=== PATIENT | male | born 1965 | race Caucasian/White ===

== ENCOUNTER 2018-03-23 21:19 | Emergency (ER) | payer MEDICARE, MEDICAID ==
--- NOTE | 2018-03-23 22:05 | ED ---
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 The patient rates the pain 0/10 in severity. Symptoms aggravated by nothing. Symptoms alleviated by nothing. Patient reports difficulty with what is real versus what is not. Patient denies SI. Patient reports he was sent here by his care facility because he refused to let them touch him. Pt is requesting admission because he does not want to go back to [facility]. He reports that [facility] refused to contact his family. - History Of Current Complaint Chief Complaint: EDPsychosocial Hx Obtained From: Patient Onset/Duration: Sudden Onset, Lasting Hours, Still Present Timing: Constant Severity Currently: Mild Severity Initially: Mild Location: Negative Aggravating Factor(s): Nothing Alleviating Factor(s): Nothing Associated Signs And Symptoms: Positive: Other - Patient reports difficulty with what is real versus what is not. Patient denies SI. - Allergies/Home Medications Allergies/Adverse Reactions: Allergies Allergy/AdvReac Type Severity Reaction Status Date / Time acetaminophen [From Percocet] Allergy Itching Verified 03/23/18 21:33 oxycodone [From Percocet] Allergy Itching Verified 03/23/18 21:33 PMH/Surg Hx/FS Hx/Imm Hx Previously Healthy: No Sensory History: Reports: Hx Vision Problem Neurological History: Reports: Other Neuro Impairments/Disorders - Positive paralysis Infectious Disease History: No Infectious Disease History: Denies: Traveled Outside the [place] in Last 30 Days - Family History Known Family History: Positive: Unknown - Due to anxiety, patient is not able to give a full history - Social History Occupation: Disabled Lives: Assisted Living Alcohol Use: None Substance Use Type: Reports: Marijuana Smoking Status (MU): Former Smoker Review of Systems - ROS Summary Review of Systems Summary: ROS limited due to patient's anxiety, patient is not giving the full history. He is focusing on his social situation. Negative: Fever Psychological: Other - Positive difficulty "with what is real versus what is not ". Negative SI All Other Systems Reviewed And Are Negative: No Physical Exam - Summary Physical Exam Summary: Appearance: Alert, conversive, pale Skin: Warm, dry, no mottling, no rashes, no contusions HEENT: EOMI, PERRL, moist mucous membranes Neck: No masses on the neck, supple Respiratory: Clear to auscultation, breath sounds present, no rales, no rhonchi , no wheezes Cardiovascular: RRR, pulses are symmetrical in both lower and upper extremities Abdomen: Soft, non-tender, suprapubic catheter in place. No CVA tenderness Bowel Sounds: Present Musculoskeletal: No CVA tenderness, no obvious deformity, moving all extremities in a grossly normal manner. To his lower extremities, incision line with cristi to the left hip. It is clean, dry, and intact. Extremities are contracted, malrotated, pale, and warm. Neurological: A&Ox3, CN II-XII Intact, moving all extremities symmetrically Psychiatric: Normal affect and mood Triage Information Reviewed: Yes Vital Signs On Initial Exam: Initial Vitals Temp Pulse Resp BP Pulse Ox 98.7 F 127 14 140/98 98 03/23/18 21:20 03/23/18 21:20 03/23/18 21:20 03/23/18 21:20 03/23/18 21:20 Vital Signs Reviewed: Yes Diagnostics - Vital Signs Vital Signs Temp Pulse Resp BP Pulse Ox 03/23/18 21:20 98.7 F 127 14 140/98 98 - Laboratory Result Diagrams: 03/23/18 22:40 03/23/18 22:40 Lab Statement: Any lab studies that have been ordered have been reviewed, and results considered in the medical decision making process. - Radiology CXR Radiology Interpretation Completed By: ED Physician - CXR reveals, per ED physician, no pneumonia. There is a line that goes down from the head to the abdomen, it may be a EMPLOYMENT OFFICER shunt. 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 Patient reports he was sent here by his care facility because he refused to let them touch him. Pt is requesting admission because he does not want to go back to [facility]. Physical Exam Findings: Pale. Slightly dry mucous membranes. Suprapubic catheter in place. No CVA tenderness. To his lower extremities, incision line with cristi to the left hip. It is clean, dry, and intact. Extremities are contracted, malrotated, pale, and warm. CXR reveals, per ED physician, no pneumonia. There is a line that goes down from the head to the abdomen, it may be a EMPLOYMENT OFFICER shunt. Bloodwork and UA obtained. In the ED course the patient was given Cephalexin, magnesium sulfate, and fluids. Patient will be discharged with prescription for Keflex and follow up from PCP. The patient is agreeable with this plan. - Diagnoses Provider Diagnoses: UTI (urinary tract infection) Discharge - Sign-Out/Discharge Documenting (check all that apply): Patient Departure - Discharge home - Discharge Plan Condition: Stable Disposition: HOME Prescriptions: Cephalexin CAP* [Keflex CAP*] 500 mg PO TID #21 cap Patient Education Materials: Urinary Tract Infection in Men (ED) Referrals: No Primary Care Phys,NOPCP [Primary Care Provider] - Additional Instructions: Take keflex 500mg by mouth three times a day for 7 days. return if worse or any new symptoms. Follow up with your primary care physician this week. Attestations Scribe Attestation: This is sharon Brunson documenting for attending Darcy Braswell MD. User Type: Provider with Scribe Provider Attestation: The documentation recorded by the scribe accurately reflects the service I personally performed and the decisions made by me.
[2018-03-23 22:49] LABS: ABS Basophils 0.1 10^3/ul (0-0.2); ABS Eosinophils 0.3 10^3/ul (0-0.6); ABS Lymphocytes 1.6 10^3/ul (1.0-4.8); ABS Monocytes 0.6 10^3/ul (0-0.8); ABS Nucleated RBC 0 10^3/ul; Eosinophil % 2.3 % (0-6); Hematocrit 33 % (42-52); Lymphocyte % 14.1 % (25-47); Mean Corpuscular HGB Conc 34 g/dl (31-36); Mean Corpuscular Hemoglobin 28 pg (27-31); Mean Corpuscular Volume 84 fL (80-94); Mean Platelet Volume 6.8 um3 (7.4-10.4); Nucleated Red Blood Cells % 0; Platelet Count 409 10^3/ul (150-450); Red Blood Count 3.93 10^6/ul (4.00-5.40); Red Cell Distribution Width 18 % (10.5-15); White Blood Count 11.6 10^3/ul (3.5-10.8)
[2018-03-23 23:05] LABS: EGFR Non-African American 156.4 (>60)
[2018-03-23] MEDS ORDERED: NS 0.9% 1000 ML* 1,000 ML IV ONE (23:56)
[2018-03-23] MEDS ORDERED: Magnesium Sulfate IV* 2 GM in NS 0.9% 100 ML* 100 ML IV ONE (23:56)
[2018-03-24] MEDS ORDERED: Magnesium Sulfate 2 GM IV* 2 GM/50 ML BAG ONE (00:15)
[2018-03-24 03:29] LABS: Urine Appearance Cloudy; Urine Blood 1+ (Negative); Urine Color Yellow; Urine Ketones Negative (Negative); Urine Protein 1+(30 mg/dL) (Negative); Urine Red Blood Cell 3+(>10/hpf) (Absent); Urine Specific Gravity 1.012 (1.010-1.030); Urine Urobilinogen Negative (Negative); Urine White Blood Cell 3+(>20/hpf) (Absent)
[2018-03-24] MEDS ORDERED: Cephalexin CAP* 500 MG PO ONE (03:30)
[2018-03-24 05:49] VITALS: BP 144/84
--- NOTE | 2018-03-24 07:31 | RAD ---
HISTORY: weakness COMPARISONS: None VIEWS: 1: frontal portable view of the chest at 10:17 PM FINDINGS: LINES AND TUBES: CONTINUOUS IMPROVEMENT DIRECTOR shunt tubing is noted on the right. CARDIOMEDIASTINAL SILHOUETTE: The cardiomediastinal silhouette is normal for portable technique. PLEURA: The costophrenic angles are sharp. No pleural abnormalities are noted. LUNG PARENCHYMA: The lungs are clear. ABDOMEN: The upper abdomen is clear. There is no subphrenic gas. BONES AND SOFT TISSUES: The patient is status post anterior cervical fusion. Mild degenerative changes are noted. IMPRESSION: NO ACTIVE CARDIOPULMONARY DISEASE. R1
== END 2018-03-24 05:45 | disposition home or self-care (01) ==
LOC: ED 21:19
DX: N39.0 Urinary tract infection, site not specified (principal); Z87.891 Personal history of nicotine dependence; Z88.6 Allergy status to analgesic agent; Z88.5 Allergy status to narcotic agent
CPT/HCPCS: 36415; 71045; 80053; 81003; 81015; 83735; 84443; 85025; 87086; 87106; 96361; 96365; 96366; 99284; A9270-GY; J3475

== ENCOUNTER 2018-03-29 11:10 | Inpatient (IN) | payer MEDICARE, MEDICAID ==
--- NOTE | 2018-03-29 11:41 | ED ---
Psychiatric Complaint - HPI Summary HPI Summary: The pt is a 52 y/o male with a PMHx of depression BIBA to [facility] s/p a suicide attempt at 10:30 today. The pt tied a sheet around his neck and notes that he does not want to live at the [facility]. He rolled on the floor and hit the bed when he was found . He notes bilateral knee and foot pain, loss of balance and loss of gait. The pt notes paralysis for 8 years now. Th pt notes continued SI in the ED. - History Of Current Complaint Chief Complaint: EDMentalHealth Hx Obtained From: Patient, EMS Onset/Duration: Still Present, Worse Since - 10:30 today Related History: Positive For: Prior Psychiatric Issues - Hx of depression Has Suicidal: Reports: With A Plan, Demonstrates Gesture - To choke himself using a bedsheet. - Allergies/Home Medications Allergies/Adverse Reactions: Allergies Allergy/AdvReac Type Severity Reaction Status Date / Time oxycodone [From Percocet] Allergy Itching Verified 03/23/18 21:33 Home Medications: Home Medications Cholecalciferol 1,000 units PO DAILY 03/29/18 [History Confirmed 03/29/18] Duloxetine HCl 60 mg PO DAILY 03/29/18 [History Confirmed 03/29/18] Vancomycin 1 Gram/250 ml-D5w 1,750 mg IVPB DAILY 03/29/18 [History Confirmed ] Zoloft 50 mg PO DAILY 03/29/18 [History Confirmed 03/29/18] PMH/Surg Hx/FS Hx/Imm Hx Previously Healthy: No Endocrine/Hematology History: Reports: Hx Anemia Cardiovascular History: Reports: Hx Hypercholesterolemia, Hx Hypertension GI History: Reports: Hx Gastroesophageal Reflux Disease Musculoskeletal History: Reports: Other Musculoskeletal History - Paralysis Sensory History: Reports: Hx Vision Problem Opthamlomology History: Reports: Hx Vision Problem Neurological History: Reports: Other Neuro Impairments/Disorders - Positive paralysis Psychiatric History: Reports: Hx Depression - Surgical History Other Surgical History: None Infectious Disease History: Yes - MRSA, Tinea cruris Infectious Disease History: Reports: Hx of Known/Suspected MRSA Denies: Traveled Outside the [place] in Last 30 Days - Family History Known Family History: Negative: Respiratory Disease, Seizure Disorder, Blood Disorder - Social History Occupation: Retired Lives: At [facility] Alcohol Use: None Substance Use Type: Reports: Marijuana Smoking Status (MU): Former Smoker Review of Systems Negative: Fever Negative: Blurred Vision, Diplopia Negative: Sore Throat, Ear Ache Negative: Chest Pain Negative: Shortness Of Breath, Cough Negative: Abdominal Pain, Vomiting, Diarrhea, Nausea Negative: burning, dysuria, hematuria Positive: Decreased ROM. Negative: Arthralgia Negative: Rash, Bruising Positive: Weakness. Negative: Headache, Syncope Psychological: Other - Positive: Suicide attempt All Other Systems Reviewed And Are Negative: No Physical Exam - Summary Physical Exam Summary: Appearance: Alert, nontoxic appearing, looks thin Skin: Warm, dry, no mottling, no rashes, no contusions; dry mucous membranes; HEENT: EOMI, PERRL, moist mucous membranes Neck: No masses on the neck, supple Respiratory: Clear to auscultation, breath sounds present, no rales, no rhonchi , no wheezes Cardiovascular: RRR, pulses are symmetrical in both lower and upper extremities ; has a PICC line in the LUE Abdomen: Soft, non-tender Bowel Sounds: Present; Has a suprapubic catheter Musculoskeletal: No CVA tenderness, Muscle wasting worse on the bilateral LEs, Neurological: A&Ox3, CN II-XII Intact, moving all extremities symmetrically; Paralyzed in the bilateral LEs Psychiatric: Pt is verbose, hyper-rastafarian and suicidal; Pt displays Flat affect; poor insight; poor judgment Triage Information Reviewed: Yes Vital Signs On Initial Exam: Initial Vitals Temp Pulse Resp BP Pulse Ox 99.2 F 113 22 122/85 99 03/29/18 11:14 03/29/18 11:14 03/29/18 11:14 03/29/18 11:14 03/29/18 11:14 Vital Signs Reviewed: Yes Appearance: Positive: Thin Skin: Positive: Warm, Dry Head/Face: Positive: Normal Head/Face Inspection - there is a vp of global marketing shunt to right scalp going down to right neck Eyes: Positive: Normal ENT: Positive: Other - slightly dry mucous membranes Neck: Positive: Supple - vp of global marketing shunt catheter noted Respiratory/Lung Sounds: Positive: Clear to Auscultation Cardiovascular: Positive: Normal Abdomen Description: Positive: Nontender Bowel Sounds: Positive: Present Musculoskeletal: Positive: Other - left hip is bandaged. bandage is dry. pt is non-mobile to lower extremities Neurological: Positive: CN Intact II-III Psychiatric: Positive: Anxious AVPU Assessment: Alert Diagnostics - Vital Signs Vital Signs Temp Pulse Resp BP Pulse Ox 03/29/18 11:14 99.2 F 113 22 122/85 99 - Laboratory Result Diagrams: 04/03/18 04:25 04/03/18 04:25 Lab Statement: Any lab studies that have been ordered have been reviewed, and results considered in the medical decision making process. - Radiology CXR Radiology Interpretation Completed By: Radiologist - IMPRESSION: No radiographic evidence for acute cardiopulmonary abnormality on this single AP view chest x-ray. The ED physician has reviewed this radiology report. - EKG 12:31 Cardiac Rate: Tachycardia - 107 bpm EKG Interpretation: Normal QRS; Normal QTC; Normal axes, Normal ST waves Re-Evaluation - Re-Evaluation First Eval Re-Evaluation Time: 17:49 Change: Unchanged - Pt Course/Dx - Course Course Of Treatment: A 52 year-old M presents to the ED with a CC of SI since 10 :30 today. He tied a sheet around his neck and was discovered by staff at the [facility]. He reports bilateral knee and foot pain, loss of balance , bilateral LE paralysis and loss of gait. A CXR is negative and an EKG reveals tachycardia but normal QRS, normal QTC, normal axes, and normal ST waves. In the ED course, pt was given a heparin flush 1mL and Cephalexin 500mg which improved his symptoms. A physical exam revealed persistent SI, bilateral LE paralysis, flat affect, poor judgment and poor insight. The pt is verbose, hyper -rastafarian and suicidal. He will be admitted for continued psychiatric care. Pt is agreeable with this plan. Allergies noted. - Differential Dx/Clinical Impression Provider Diagnosis: Suicide attempt, Depression - Physician Notifications Discussed Care Of Patient With: Mayda Street Time Discussed With Above Provider: 18:02 Instructed by Provider To: Admit As Inpatient - Dr. Street agreed to admit the pt after she confirms that the psychiatry dept. will see the pt daily. 18:12: Dr. Street agreed to admit the pt Discharge - Sign-Out/Discharge Documenting (check all that apply): Patient Departure - Discharge Plan Condition: Stable Disposition: ADMITTED TO [facility] - Billing Disposition and Condition Condition: STABLE Disposition: Admitted to [facility] - Attestation Statements Document Initiated by Breonna: Yes Documenting Scribe: Belia Gutierrez Provider For Whom Breonna is Documenting (Include Credential): Dr. Darcy Braswell MD Scribe Attestation: Belia Macias , scribed for Dr. Darcy Braswell MD on 04/03/18 at 0945. Scribe Documentation Reviewed: Yes Provider Attestation: The documentation as recorded by the veelynibBelia rod accurately reflects the service I personally performed and the decisions made by me, Dr. Darcy Braswell MD
--- NOTE | 2018-03-29 12:07 | RAD ---
INDICATION: Weakness COMPARISON: Similar chest x-ray March 23, 2018 TECHNIQUE: Single AP view of the chest was obtained. FINDINGS: Again seen is plate and screw fixator overlying the midline cervical spine and a right-sided ventriculoperitoneal shunt. The heart and mediastinum exhibit normal size and contour. The lungs are grossly clear. There is no evidence of a large pleural effusion. Visualized bones are normal for the patient's age. IMPRESSION: No radiographic evidence for acute cardiopulmonary abnormality on this single AP view chest x-ray.
[2018-03-29 13:29] LABS: ABS Basophils 0.1 10^3/ul (0-0.2); ABS Eosinophils 0.3 10^3/ul (0-0.6); ABS Lymphocytes 1.6 10^3/ul (1.0-4.8); ABS Monocytes 0.6 10^3/ul (0-0.8); ABS Neutrophils 7.9 10^3/ul (1.5-7.7); ABS Nucleated RBC 0 10^3/ul; Eosinophil % 2.6 % (0-6); Hematocrit 31 % (42-52); Hemoglobin 10.3 g/dl (14.0-18.0); Lymphocyte % 15.6 % (25-47); Mean Corpuscular HGB Conc 33 g/dl (31-36); Mean Corpuscular Hemoglobin 28 pg (27-31); Mean Corpuscular Volume 84 fL (80-94); Nucleated Red Blood Cells % 0; Platelet Count 449 10^3/ul (150-450); Red Blood Count 3.69 10^6/ul (4.00-5.40); Red Cell Distribution Width 18 % (10.5-15); White Blood Count 10.5 10^3/ul (3.5-10.8)
[2018-03-29 13:40] LABS: Urine Appearance Cloudy; Urine Blood Negative (Negative); Urine Color Yellow; Urine Ketones Negative (Negative); Urine Protein Negative (Negative); Urine Red Blood Cell 3+(>10/hpf) (Absent); Urine Specific Gravity 1.013 (1.010-1.030); Urine Urobilinogen Negative (Negative); Urine White Blood Cell 3+(>20/hpf) (Absent)
[2018-03-29 13:43] LABS: EGFR Non-African American 156.4 (>60)
[2018-03-29] MEDS ORDERED: Cephalexin CAP* 500 MG PO ONE (18:37)
[2018-03-29] MEDS ORDERED: Ondansetron INJ* 2 MG/ML VIAL IV PRN (20:33)
[2018-03-29] MEDS ORDERED: Al Hydrox/Mg Hydrox/Simet LIQ* 30 ML UDC PO PRN (20:33)
[2018-03-29] MEDS ORDERED: Albuterol 2.5 MG/3 ML NEB.SOL* (0.083%) INH PRN (20:33)
[2018-03-29] MEDS ORDERED: Magnesium Hydroxide LIQ* 30 ML UDC PO PRN (20:33)
[2018-03-29] MEDS ORDERED: oxyCODONE/Acetamin 5/325 MG* TAB PO PRN (20:33)
[2018-03-29] MEDS ORDERED: Vancomycin(*) 1,500 MG in NS 0.9% 250 ML* 250 ML IVPB ONE (20:44)
[2018-03-29] MEDS ORDERED: Vancomycin per Pharmacy* NOTE FOLLOW UP SCH (21:00)
[2018-03-29] MEDS ORDERED: NS 0.9% 250 ML* 250 ML ONE (21:29)
[2018-03-29] MEDS: Morphine ORAL.SOLN 10 mg* 2 MG/ML UDC 5 ml PO PRN (22:30)
[2018-03-29] MEDS: Heparin VIAL(*) 5000 UNITS/ML VIAL (FIVE THOUSAND) SUBCUT SCH (22:32)
[2018-03-29] MEDS: Atorvastatin* 10 MG TAB PO SCH (22:33)
[2018-03-29] MEDS: Cephalexin CAP* 500 MG PO SCH (22:33)
[2018-03-29] MEDS: tiZANidine TAB* 2 MG PO PRN (22:48)
--- NOTE | 2018-03-29 22:58 | HP ---
CC: Angel Romano MD* ADMISSION HISTORY AND PHYSICAL: DATE OF ADMISSION: 03/29/18 ATTENDING HOSPITALIST: Brice Poon MD * (DICTATED BY IRIS CLIFFORD ) CHIEF COMPLAINT: Suicidal ideation with attempt. HISTORY OF PRESENT ILLNESS: Mr. 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 The patient has been a resident of [facility]. The patient has been a resident of [facility] for the past week or so. He notes that he has been having difficulty accommodating to his life at the custodial and he would like to "put an end to his misery" for which he has been attempting multiple suicidal approaches, most recently today when he wrapped the bedsheet around his neck and tried to hang himself. The patient was brought to the emergency room for evaluation. He was here twice in he past few days for a similar issue and clearly stated that he would like to be moved from [facility]. He had laboratory workup that revealed no evidence of leukocytosis. His hemoglobin and hematocrit has been chronically low and appears to be at baseline at 10.3 and 31 respectively. His chemistry panel was essentially unremarkable and appears to be at his baseline as well with the exception of hypomagnesemia at level of 1.6. Psychiatric evaluation was requested in the emergency room and it was done and it was thought that the patient need to be admitted for acute psychiatric disorder and suicidal ideation with attempts. Given the fact that he has a suprapubic tube as well as PEG tube for a chronic vancomycin IV administration due to history of osteomyelitis, we were asked to see the patient to consider admission under hospitalist services and for psychiatric consultation as inpatient. PAST MEDICAL HISTORY: Multiple medical issues with complex progression including history of substance abuse, CVA leading to paraplegia, pancreatitis, weakness, neurological disorder, GERD, hyponatremia, bipolar and depression, nephropathy, multiple decubitus ulcers in the past, urinary retention with suprapubic catheter placement, prior admission due to sepsis, hypertension. PAST SURGICAL HISTORY: Previous abdominal surgery with insertion of suprapubic tube, transurethral resection of the prostate, ureterostomy, ventriculoperitoneal shunt surgery. CURRENT MEDICATIONS: According to records reviewed, his current medications include: 1. Vitamin C 1000 mg p.o. daily. 2. Atorvastatin 10 mg p.o. q.h.s. 3. Cholecalciferol 1000 units p.o. daily. 4. Duloxetine 60 mg p.o. daily. 5. Pepcid 20 mg p.o. b.i.d. 6. Lisinopril 5 mg p.o. daily. 7. Metoprolol 50 mg p.o. daily. 8. Morphine oral concentrate 5 mg oral solution q.8 hours p.r.n. for pain. 9. Docusate sodium 1 tablet p.o. daily. 10. Tizanidine 4 mg p.o. 4 times a day p.r.n. for spasm. 11. Vancomycin in the current listed dose is 1.750 mg IV fluid once daily and pharmacy will adjust the dose per protocol. 12. Zoloft 50 mg p.o. daily. 13. Keflex 500 mg p.o. t.i.d. ALLERGIES: He is allergic to OXYCODONE. FAMILY HISTORY: Noncontributory since the patient was adopted. SOCIAL HISTORY: The patient currently lives at [facility]. He is a former smoker who quit approximately 9 years ago. He denies drinking alcohol and he denies any illicit drug use now. The patient is adopted and he wishes to be a full code. REVIEW OF SYSTEMS: See HPI. Otherwise, 12-point review of systems were essentially negative. PHYSICAL EXAMINATION GENERAL: He is a pleasant middle-aged gentleman, appears appropriate, talks slightly fast with flight of ideas, but comfortable and in no acute distress or discomfort at the time of admission. VITAL SIGNS: Most recent set of vitals with temperature of 98.3, pulse of 117, blood pressure of 131/72, respirations of 20 with O2 sat of 97% on room air. HEENT: Head is normocephalic, atraumatic. Sclerae anicteric. PERRLA. EOMs intact. Oropharynx is pink and moist. NECK: Supple. Trachea midline. No cervical adenopathy or thyromegaly. LUNGS: Clear to auscultation bilaterally. HEART: Fast rate and regular rhythm without rubs, murmurs or gallops. ABDOMEN: Soft, nontender and nondistended. There are no hernias, masses, or hepatosplenomegaly. There is a suprapubic catheter inserted with a clean base. No evidence of leak. BACK: With normal curvature. No CVA tenderness. EXTREMITIES: Without cyanosis, clubbing, or edema. NEUROLOGIC: He is awake, alert and oriented x4. Muscle manager icu to other extremities is equal bilaterally. Tongue is midline. Sensation is intact. Lower extremity with a contracture noted consistent with paraplegia with visible muscular atrophy. There are no ulcers noted to the bilateral trochanteric area or lower back. RECTAL: Exam deferred at this time. LABORATORY WORKUP: CBC with white count of 10,000, hemoglobin of 10.3, hematocrit of 31, and platelets of 449,000. Chemistry panel with sodium of 133 , potassium of 4.2, chloride 98, CO2 of 30, BUN of 17, and creatinine of 0.55. LFTs within normal limits. Magnesium low at 1.6 and glucose was 88. TSH is 1.53. Toxicology panel with acetaminophen less than 10 and urine showed 3+ leukocytes, white cells and red cells. IMPRESSION: A 52-year-old gentleman with multiple complicated medical issues including paraplegia, history of cerebrovascular accident with hydrocephalus and ventriculoperitoneal shunt, as well as history of bipolar disorder, depression and multiple suicidal ideations and attempts in the past few days who presented to the emergency room after another attempt of suicide at his residence at [facility]. ASSESSMENT AND PLAN: 1. Suicidal ideation with attempt. The patient will be admitted under hospitalist services and psychiatric consultation was obtained. I have discussed the case with Dr. Poon, who in turn called Dr. Romano requesting his consultation that was done earlier this evening. The plan was made clear that the patient will be admitted under hospitalist services and will have daily rounds by Psychiatric Health during his hospital stay to monitor his progression. In case, the patient needs any future psychiatric transfer from [facility] to outside facility, the transfer protocol will be done by the mental health team. The patient appeared to be stable at this point and does not exhibit any suicidal thoughts. We will continue to observe him one-on- one on the medical floor. I will continue his SSRI and monitor. 2. Hypertension. I will continue his lisinopril and metoprolol daily dose. 3. History of cerebrovascular accident with ventriculoperitoneal shunt. This issue appears to be stable right now. The patient exhibits no headaches or abnormal vitals and his blood pressure has been stable. 4. Paraplegia. Supportive care, and frequent turning on bed to avoid any decubitus ulcers. 5. Hypomagnesemia. We will replace his magnesium. 6. Recent history of osteomyelitis. We will continue his vancomycin IV dose on a daily basis. His current dose upon admission is 1.750 g. He will be given this initial dose tonight and I will refer to the pharmacy to adjust the dose per protocol. 7. History of urinary retention. We will continue his suprapubic tube attached to gravity per protocol. 8. DVT prophylaxis: The patient has a high risk and will be covered with subcutaneous heparin. 9. Code status: He is a full code. 10. Disposition: Admit to hospitalist services with psychiatric followup rounding on a daily basis to monitor closely his progression. Again, Dr. Poon has spoken to Dr. Romano and in case if there was any future transfer of the patient from [facility] to a different psychiatric facility, this will be managed and taken care of by the behavioral health team. TIME SPENT: Approximately 60 minutes were spent admitting this patient with greater than 50% on taking history and performing physical exam. I went on and discussed the case my attending, Dr. Poon, who agreed to the plan of care. IRIS CLIFFORD [id number]/CPS #: [id number] HUGO
[2018-03-30] MEDS: Capsaicin 0.025% CREAM* 60 GM TOPICAL PRN ×2 (05:23→11:19)
[2018-03-30] MEDS: Heparin VIAL(*) 5000 UNITS/ML VIAL (FIVE THOUSAND) SUBCUT SCH ×3 (05:37→21:26)
[2018-03-30 05:50] LABS: ABS Basophils 0.1 10^3/ul (0-0.2); ABS Eosinophils 0.4 10^3/ul (0-0.6); ABS Monocytes 0.7 10^3/ul (0-0.8); ABS Nucleated RBC 0 10^3/ul; Eosinophil % 3.9 % (0-6); Hematocrit 29 % (42-52); Hemoglobin 9.6 g/dl (14.0-18.0); Lymphocyte % 17.9 % (25-47); Mean Corpuscular HGB Conc 34 g/dl (31-36); Mean Corpuscular Hemoglobin 28 pg (27-31); Mean Corpuscular Volume 84 fL (80-94); Nucleated Red Blood Cells % 0; Platelet Count 466 10^3/ul (150-450); Red Blood Count 3.39 10^6/ul (4.00-5.40); Red Cell Distribution Width 18 % (10.5-15); White Blood Count 11.2 10^3/ul (3.5-10.8)
[2018-03-30 06:02] LABS: EGFR Non-African American 163.3 (>60)
[2018-03-30] MEDS ORDERED: DULoxetine DR CAP* 30 MG CAP.DR PO SCH (09:00)
--- NOTE | 2018-03-30 09:03 | PN ---
Subjective Date of Service: 03/30/18 Interval History: Mr. Barth provides extensive details about his past medical history today. He is paraplegic from T4 down but states that it was never proven as to why this happened though there is suspicion for CVA and hydrocephalus for which he had a FUSE CUTTER shunt placed x 2. He was admitted to [facility] in [place] for what was initially thought to be a UTI (hx of suprapubic catheter) but then found to be anemic and required 4 units of PRBC. He was also found to have osteomyelitis secondary to decubitus ulcer on his left hip. He has multiple other decubitus ulcers on his buttocks as well. He was transferred from there to [facility] about one week ago. He states that "no one is managing this infection or my antibiotics." He is unaware of any planned follow up. Notes from [facility] indicate that he had a scheduled ortho follow up which he missed because he was not feeling well (nauseaus). Since being at [facility] he was started on keflex for a suspected UTI though he does not endorse any symptoms of a UTI, neither fever or pain. Objective Active Medications: Acetaminophen (Tylenol Tab*) 650 mg PO Q4H PRN Al Hydrox/Mg Hydrox/Simethicone (Maalox Plus*) 30 ml PO Q6H PRN Albuterol (Ventolin 2.5 Mg/3 Ml Neb.Dayami*) 2.5 mg INH [id number] AWAKE PRN Ascorbic Acid (Vitamin C Tab*) 1,000 mg PO DAILY YANET Atorvastatin Calcium (Lipitor*) 10 mg PO 2100 [facility] Capsaicin (Zostrix 0.025% Cream*) 1 applic TOPICAL BID PRN Cephalexin HCl (Keflex Cap*) 500 mg PO TID YANET Cholecalciferol (Vitamin D Tab*) 1,000 units PO DAILY YANET Duloxetine HCl (Cymbalta Cap*) 60 mg PO DAILY YANET Famotidine (Pepcid Tab*) 20 mg PO BID PRN Heparin Sodium (Porcine) (Heparin Flush Picc/Ml/Cvc(*)) 1 ml FLUSH 0600,1800 YANET; Protocol Heparin Sodium (Porcine) (Heparin Vial(*)) 5,000 units SUBCUT Q8HR YANET Vancomycin HCl 1,000 mg/ (Sodium Chloride) 250 mls @ 166.667 mls/hr IVPB Q12H [facility] Lisinopril (Prinivil Tab*) 5 mg PO DAILY [facility] Magnesium Hydroxide (Milk Of Magnesia Liq*) 30 ml PO Q4H PRN Metoprolol Succinate (Toprol Xl Tab*) 50 mg PO DAILY [facility] Morphine Sulfate (Morphine Oral.Soln 10 Mg*) 5 mg PO Q8H PRN Ondansetron HCl (Zofran Inj*) 4 mg IV Q4H PRN Pharmacy Consult (Vancomycin Per Pharmacy*) 1 note FOLLOW UP .VANC PER PHARMACY [facility] Pharmacy Profile Note (Vancomycin Trough Check) 1 note FOLLOW UP 0930 ONE Sertraline HCl (Zoloft*) 50 mg PO DAILY [facility] Tizanidine HCl (Zanaflex Tab*) 4 mg PO QID PRN Vital Signs: Temp Pulse Resp BP Pulse Ox 98.3 F 106 23 119/67 100 03/30/18 06:57 03/30/18 07:01 03/30/18 06:57 03/30/18 07:01 03/30/18 06:57 Oxygen Devices in Use Now: None Appearance: Male lying in bed in NAD Eyes: No Scleral Icterus Ears/Nose/Mouth/Throat: Mucous Membranes Moist Neck: Trachea Midline Respiratory: Symmetrical Chest Expansion and Respiratory Effort, Clear to Auscultation Cardiovascular: NL Sounds; No Murmurs; No JVD, No Edema Abdominal: NL Sounds; No Tenderness; No Distention Extremities: No Edema Skin: - Neurological: Alert and Oriented x 3, - - Paralyzed from waist down, strong upper extremities bilaterally, face symmetric, EOMs intact Nutrition: Taking PO's Result Diagrams: 03/30/18 05:33 03/30/18 05:33 Assess/Plan/Problems-Billing Assessment: Mr. Barth is a 52 yo male with a PMH of CVA, osteomyelitis on IV vancomycin therapy, and multiple suicide attempts who was admitted on 03/29/18 after a suicide attempt and required inpatient medical hospitalization for administration of IV vancomycin while receiving psychiatric treatment from our Behavioral Services team. - Patient Problems (1) Suicide attempt Comment: - U team following daily. - Continue duloxetine and sertraline. (2) Osteomyelitis Comment: - From decubitus ulcer. - Continue IV vancomycin per routine, pharmacy to dose based on troughs. - Request records from [facility]. (3) UTI (urinary tract infection) Comment: - Continue keflex pending urine culture results (4) Paraplegia Comment: - Hx of CVA with FUSE CUTTER shunt. - Patient has suprapubic catheter for hx of urinary retention. - Supportive care. (5) Hypertension Comment: - SBP 110-140s. - Continue lisinopril and metoprolol. (6) Hyperlipidemia Comment: - Continue atorvastatin. (7) DVT prophylaxis Comment: - Heparin SQ. (8) Full code status Comment: Status and Disposition: Inpatient. Patient from [facility] but is adamant about not returning there. plant clerk and social workers following.
[2018-03-30] MEDS: Cholecalciferol TAB* 1000 UNITS PO SCH (09:09)
[2018-03-30] MEDS: Lisinopril TAB* 5 MG PO SCH (09:09)
[2018-03-30] MEDS: Metoprolol Succinate XL TAB* 50 MG PO SCH (09:09)
[2018-03-30] MEDS: Cephalexin CAP* 500 MG PO SCH ×3 (09:09→21:25)
[2018-03-30] MEDS: Ascorbic Acid TAB* 500 MG PO SCH (09:09)
[2018-03-30] MEDS: Sertraline* 50 MG TAB PO SCH (09:09)
[2018-03-30] MEDS: Vancomycin(*) 1,000 MG in NS 0.9% 250 ML* 250 ML IVPB SCH ×2 (09:15→21:31)
[2018-03-30] MEDS: tiZANidine TAB* 2 MG PO PRN (14:04)
[2018-03-30] MEDS: Morphine ORAL.SOLN 10 mg* 2 MG/ML UDC 5 ml PO PRN (15:36)
--- NOTE | 2018-03-30 19:31 | CONS ---
CONSULTATION REPORT: DATE OF CONSULT: 03/30/18 ATTENDING: Karina Ortiz NP CONSULTING PHYSICIAN: Dr. Angel Romano. REASON FOR CONSULT: Suicidal gesture. SUBJECTIVE HISTORY: Psychiatry is consulted on this 52-year-old white male with a remote h istory of psychiatric hospitalization and current treatment for depression due to a suicidal gesture at [facility] where he allegedly attempted to hang himself with a bed s heet. Later when he was in the ED receiving evaluation, he took the waist tie from his patient scrub and again put it around his neck in a gesture to hang himself. As I meet with him on the 4th floor, he indicates that he is tired and frustrated with his medical situation and feels like [facility] jana pawned him off onto the [facility] where he was getting inappropriate care for hi s IV antibiotic needs. Reading the history and physical from the hospitalist service, it does appear that his medical history is quite complicated including a history of stroke leading to paraplegia as well as neurological problems, heart disease, GERD, decubitus ulcer and nephropathy and also insertio n of a suprapubic catheter on a permanent basis. The patient was hospitalized medically at [facility] where it was determined that he would need several more weeks of IV vancomycin and they had difficulty placing him and ultimately he ended up at [facility]. When I entered in the patient's room , he is accompanied by his , who lives in a separate house and the 2 of them are . I am aware that the crisis errand runner and the patient's nurse on the 4th floor have both indicated that april saucedo found him hyperverbal and he does appear to have some pressured speech, although he denies any keri or history of bipolar disorder diagnosis. After leaving his room, his indicates that for years the patient has had interpersonal problems with others and narcissistic personality traits, although she states that this has never been fully worked up to her knowledge. I do see that he is on 2 separ ate antidepressants both prescribed by his primary care provider in [place], [place]. Symptomati kenney, the patient endorses frustration with his current medical situation and does feel slightly dep ressed. He also admits to cannabis use to reduce pain and discomfort from his paraplegia. PAST PSYCHIATRIC HISTORY: The patient has had 2 prior psychiatric hospitalizations both in 2010. April rod first was at [facility] due to suicidal ideations and the second was at [facility] also for suicidal ideation in the setting of his recent health problems at that time. Jeison rod is currently on 2 separate antidepressants including Zoloft 50 mg daily and Cymbalta 60 mg daily as prescribed by an outpatient provider. He is not currently enrolled in any comprehensive mental [facility] treatment. He states that he has never attempted suicide prior to his behavior at [facility]. SUBSTANCE ABUSE HISTORY: The patient is a former smoker who quit in 2009. He does consume cannabis fairly frequently whenever he can procure this and I do see that his urine drug screen is positive fo r cannabinoids. He denies being an alcohol drinker. PAST MEDICAL HISTORY: Significant for stroke, paraplegia, pancreatitis, weakness, neurological disor haris, GERD, hyponatremia, nephropathy, multiple decubitus ulcers, urinary retention, suprapubic cathet er placement, hypertension, recent sepsis. PAST SURGICAL HISTORY: Includes abdominal surgery with suprapubic tube, transurethral resection of p rostate, ureterostomy, ventriculoperitoneal shunt surgery. MEDICATIONS: Include: 1. Vitamin C. 2. Atorvastatin. 3. Cholecalciferol. 4. Duloxetine. 5. Pepcid. 6. Lisinopril. 7. Metoprolol. 8. Morphine. 9. Docusate. 10. Tizanidine. 11. Vancomycin. 12. Zoloft. 13. Keflex. ALLERGIES: He is allergic to OXYCODONE. FAMILY HISTORY: Noncontributory given the fact that the patient is adopted. SOCIAL HISTORY: The patient was born and raised in the [place] area. He also has an adoptive [facility]. His adoptive parents are still alive and residing in an assisted living facility. The patient remains , although he is with his of 30 years and they have 3 total children. 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 Currently, he is on disability an d lives in his own apartment in [place]. MENTAL STATUS EXAM: The patient is a middle-aged white male, who is bald, looks to be undernourished and medically ill. He is calm, cooperative, expressive. Speech does appear to be somewhat over pro ductive and pressured. Mood appears to be depressed, but with a somewhat expansive affect. Thought process is linear to tangential. Thought content is significant for his desire to get out of [facility]. He is denying suicidal or homicidal ideations. He denies auditory or visual hallucinations. Ins ight and judgment appears to be limited given his choice of trying to hang himself. Cognitively, he is awake and alert with what would appear to be an average intellect. DIAGNOSES: As follows: [place] I: Unspecified mood disorder, rule out bipolar disorder with mixed episode; cannabis use disord er. [place] II: Rule out cluster B personality traits. IMPRESSION: The patient is a 52-year-old white male with a history of affective disturbanc e as well as paraplegia and multiple medical comorbidities, who was recently discharged from [facility]'s medical unit to the [facility] for continued IV antibiotic therap y. While there, he was complaining of poor care and made a suicidal gesture, which was repeated in [facility] ED. At this time, he is admitting that this was a mistake and that he is not suicidal and would li ke placement in a different rehab setting ultimately with the hope of returning home to semi-independ ent living. His is present and is incredulous that he can ever live on his own again. PLAN: Psychiatry will continue follow the patient. I do think that there is a strong possibility th at he has bipolar disorder and for this reason, I will be discontinuing his duloxetine. For now, we will leave the sertraline in place, but augment it with a trial of 50 mg of Seroquel. I will be seei ng him on a daily basis and essentially co-managing him along with the hospitalist service. [facility] because the patient will need further placement. Thank you for the consultation. [id number]/[facility] #: [id number]
[2018-03-30] MEDS: QUEtiapine TAB* 25 MG PO SCH (21:24)
[2018-03-30] MEDS: Atorvastatin* 10 MG TAB PO SCH (21:25)
[2018-03-31] MEDS ORDERED: NS 0.9% 1000 ML* 1,000 ML IV SCH (00:15)
--- NOTE | 2018-03-31 02:36 | PN ---
Progress Note - Progress Note Date of Service: 03/31/18 Note: Nursing called reporting low systolic in the 80s. 1L NS ordered. Nurse called after bolus reporting systolic in the 70s. I requested an ICU nurse obtain a blood pressure which was 90/50. Nurse called again concerned about blood pressure reporting him to be lethargic and ashen colored. Upon my evaluation he was pink, startled with loud noise (appropriately complaining it was unnecessary ) and was oriented to PPS, hospital floor, and room. He has a BMI of 17, is attempting to sleep, and producing good urine. As he is entirely asymptomatic with this pressure, no further intervention is necessary. Consideration for decreasing his BP meds should be made. Shortly after my evaluation, nursing again called concerned regarding his BP and I informed the bunk house worker of the situation and requested his evaluation which returned the information that Mr Barth's systolic sitting up is 60s and lying supine is high 80s. Additionally he was started on quetiapine 50mg first dose last PM. As such, will give an additional 2L NS and check orthostatics afterwards. With the need and addition of quetiapine, again a decrease in BP meds should be considered.
[2018-03-31] MEDS: NS 0.9% 1000 ML* 1,000 ML IV SCH ×4 (03:24→23:57)
[2018-03-31] MEDS: Heparin VIAL(*) 5000 UNITS/ML VIAL (FIVE THOUSAND) SUBCUT SCH ×3 (06:19→21:16)
[2018-03-31] MEDS: Sertraline* 50 MG TAB PO SCH (08:59)
[2018-03-31] MEDS: Ascorbic Acid TAB* 500 MG PO SCH (08:59)
[2018-03-31] MEDS: Cholecalciferol TAB* 1000 UNITS PO SCH (08:59)
[2018-03-31] MEDS: Metoprolol Succinate XL TAB* 50 MG PO SCH (08:59)
[2018-03-31] MEDS: Lisinopril TAB* 5 MG PO SCH (08:59)
[2018-03-31] MEDS: Cephalexin CAP* 500 MG PO SCH ×3 (08:59→21:15)
[2018-03-31] MEDS ORDERED: Vancomycin Trough Check NOTE FOLLOW UP ONE (09:30)
--- NOTE | 2018-03-31 09:43 | PN ---
Subjective Date of Service: 03/31/18 Interval History: CAT call this morning for episode of unresponsiveness. Patient was being assisted up in bed for check of orthostatic vitals after episode of hypotension (SBP 60s) overnight, when he suddenly went unresponsive. Patient laid down in bed and CPR was initiated with primary RN could not initially find a pulse. Compressions only lasted a couple of seconds before pulse confirmed with bedside vitals monitoring. SBP 130s, HR 100s. Patient then noted to move spontaneously. After 1 minute or so, patient opened his eyes spontaneously but did not respond verbally. After approx 5 minutes, patient back to baseline. Patient denies complaint. He reports that he "has done this before" during his hospitalization at [facility] and that they "thought he was going crazy." Objective Active Medications: Acetaminophen (Tylenol Tab*) 650 mg PO Q4H PRN Al Hydrox/Mg Hydrox/Simethicone (Maalox Plus*) 30 ml PO Q6H PRN Albuterol (Ventolin 2.5 Mg/3 Ml Neb.Dayami*) 2.5 mg INH [id number] AWAKE PRN Ascorbic Acid (Vitamin C Tab*) 1,000 mg PO DAILY YANET Atorvastatin Calcium (Lipitor*) 10 mg PO 2100 YANET Capsaicin (Zostrix 0.025% Cream*) 1 applic TOPICAL BID PRN Cephalexin HCl (Keflex Cap*) 500 mg PO TID YANET Cholecalciferol (Vitamin D Tab*) 1,000 units PO DAILY YANET Famotidine (Pepcid Tab*) 20 mg PO BID PRN Heparin Sodium (Porcine) (Heparin Flush Picc/Ml/Cvc(*)) 1 ml FLUSH 0600,1800 YANET; Protocol Heparin Sodium (Porcine) (Heparin Vial(*)) 5,000 units SUBCUT Q8HR YANET Vancomycin HCl 1,000 mg/ (Sodium Chloride) 250 mls @ 166.667 mls/hr IVPB Q12H YANET Sodium Chloride (Ns 0.9% 1000 Ml*) 1,000 mls @ 100 mls/hr IV PER RATE YANET Magnesium Hydroxide (Milk Of Magnesia Liq*) 30 ml PO Q4H PRN Morphine Sulfate (Morphine Oral.Soln 10 Mg*) 5 mg PO Q8H PRN Ondansetron HCl (Zofran Inj*) 4 mg IV Q4H PRN Pharmacy Consult (Vancomycin Per Pharmacy*) 1 note FOLLOW UP .VANC PER PHARMACY [facility] Quetiapine Fumarate (Seroquel Tab*) 50 mg PO BEDTIME YANET Sertraline HCl (Zoloft*) 50 mg PO DAILY YANET Tizanidine HCl (Zanaflex Tab*) 4 mg PO QID PRN Vital Signs: Temp Pulse Resp BP Pulse Ox 97.6 F 94 16 105/64 100 03/31/18 08:36 03/31/18 08:18 03/31/18 08:18 03/31/18 08:18 03/31/18 08:18 Oxygen Devices in Use Now: None Appearance: Male lying in bed, now in NAD Eyes: No Scleral Icterus Ears/Nose/Mouth/Throat: Mucous Membranes Moist Neck: Trachea Midline Respiratory: Symmetrical Chest Expansion and Respiratory Effort, Clear to Auscultation Cardiovascular: NL Sounds; No Murmurs; No JVD, No Edema Abdominal: NL Sounds; No Tenderness; No Distention Lymphatic: No Cervical Adenopathy Extremities: No Edema Skin: No Rash or Ulcers Neurological: Alert and Oriented x 3, - - Unable to move lower extremities, upper extremities +5 strength bilaterally Lines/Tubes/Other Access: Clean, Dry and Intact Other Access - suprapubic catheter with clear yellow urine Nutrition: Taking PO's Result Diagrams: 03/30/18 05:33 03/30/18 05:33 Assess/Plan/Problems-Billing Assessment: Mr. Barth is a 52 yo male with a PMH of CVA, osteomyelitis on IV vancomycin therapy, and multiple suicide attempts who was admitted on 03/29/18 after a suicide attempt and required inpatient medical hospitalization for administration of IV vancomycin while receiving psychiatric treatment from our Behavioral Services team. - Patient Problems (1) Syncope Comment: - Episode of unresponsiveness during attempt to check orthostatic vitals today. - BP normal, tachycardic. - Question orthostasis vs seizure vs non-epileptiform seizure. - Plan for maintenance telemetry monitoring, IV fluids, CBC, CMP, blood cultures (given ongoing treatment for osteomyelitis), EEG in AM. - Have again requested records from [facility] regarding recent hospitalization. (2) Suicide attempt Comment: - U team following daily. - Continue duloxetine and sertraline. (3) Osteomyelitis Comment: - From decubitus ulcer. - Continue IV vancomycin per routine, pharmacy to dose based on troughs. - Request records from [facility]. 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 - Patient has suprapubic catheter for hx of urinary retention. - Supportive care. (6) Hypertension Comment: - SBP down to 60s overnight - Hold lisinopril and metoprolol. (7) Hyperlipidemia Comment: - Continue atorvastatin. (8) DVT prophylaxis Comment: - Heparin SQ. (9) Full code status Comment: Status and Disposition: Inpatient. Patient from [facility] but is adamant about not returning there. primary school teacher librarian and social workers following.
[2018-03-31] MEDS: Vancomycin(*) 1,000 MG in NS 0.9% 250 ML* 250 ML IVPB SCH ×2 (10:29→21:42)
[2018-03-31 10:38] LABS: ABS Basophils 0.1 10^3/ul (0-0.2); ABS Eosinophils 0.4 10^3/ul (0-0.6); ABS Lymphocytes 1.4 10^3/ul (1.0-4.8); ABS Monocytes 0.5 10^3/ul (0-0.8); ABS Neutrophils 5.6 10^3/ul (1.5-7.7); ABS Nucleated RBC 0 10^3/ul; Eosinophil % 5.2 % (0-6); Hematocrit 27 % (42-52); Hemoglobin 9.1 g/dl (14.0-18.0); Mean Corpuscular HGB Conc 34 g/dl (31-36); Mean Corpuscular Hemoglobin 28 pg (27-31); Mean Corpuscular Volume 85 fL (80-94); Nucleated Red Blood Cells % 0; Platelet Count 342 10^3/ul (150-450); Red Blood Count 3.21 10^6/ul (4.00-5.40); Red Cell Distribution Width 18 % (10.5-15)
[2018-03-31 10:55] LABS: EGFR Non-African American 178.7 (>60)
[2018-03-31] MEDS: diPHENhydraMINE PO* 25 MG PO PRN (13:08)
--- NOTE | 2018-03-31 13:32 | CONSULT ---
Identification - Patient Identification Reason for Psychiatric Consultation: Suicidal Ideation -: Patient is a 52 year old, M admitted on 03/29/18. - MHU Identification Employment Status: Disabled Hx Psychiatric Hospitalization: Yes History - Objective HPI: Gabriel is seen by the psych consult team for follow up. He had a difficult overnight and marine habitat resource specialist period, characterized by episodes of low blood pressure and then unresponsiveness. "I don't know what happens to me when I get into those episodes. It's like I'm in a swimming pool of blackness and I can feel an evil presence holding me under...and then I snap out of it." He remains overproductive in speech, going from one subject to the next in a sequential but highly tangential manner. He continues to deny SI saying, "I asked the Holy Spirit to come take me and she didn't. I think of God as a woman. I don't know the purpose, but I'm just not meant to leave this world yet." Exam Appearance: Thin Framed Hygiene: Mal-odorous Grooming: Fairly Well Kept Psychomotor Activities: Normal Exhibits Abnormal Movement: No Attitude and Relatedness: Cooperative Eye Contact: Fair - Speech Quality: Pressured Latencies: Short Quantity: Copious Patient's Decription of Mood: "Okay" Observed Affect: Expansive Affect Consistent with: Euphoria Patient's Thought Process: Tangential Thought Content: No Passive Wish, No Suicidal Planning, No Homicidal Ideation, No Paranoid Ideation Experiencing Hallucinations: No, Sensorium is Clear Type of Hallucinations: Visual: No, Auditory: No, Command: No Level of Consciousness: Alert Orientation: Yes Intact, Yes Orientated to Time, Yes Orientated to Place, Yes Orientated to Person Impulse Control: Poor Insight and Judgement: Impaired Impression - Impression Clinical Impression: 52 y.o. , white male with paraplegia, arrives on 9.41 from [facility] following a suicidal gesture in which he tied a sheet around his neck and motioned to hang himself. Inpatient DSM-V Dx: F31.9 Merits Inpatient Hospitalization: Yes Problem List - U Problems Type of Problem: Mood Status of Problem: Active Plan - Treatment Plan Treatment Plan: The patient denies current SI but to be safe I believe he warrants further 1:1 observations, as I don't trust his insight and judgment quite yet. We have tried to amend his psychiatric medication regimen, as he seems more hypomanic than depressed. Duloxetine has been discontinued while sertraline has been left alone at 50mg to prevent withdrawals. I started a trial of quetiapine 50mg PO qhs last night but this perhaps made him hypotensive. Will continue to monitor. Psychiatry will continue to follow daily. Continued Medication Management: Different Medication Medications: Current Medications Acetaminophen (Tylenol Tab*) 650 mg PO Q4H PRN PRN Reason: FEVER/PAIN Al Hydrox/Mg Hydrox/Simethicone (Maalox Plus*) 30 ml PO Q6H PRN PRN Reason: INDIGESTION Albuterol (Ventolin 2.5 Mg/3 Ml Neb.Dayami*) 2.5 mg INH [id number] AWAKE PRN PRN Reason: sob/wheezing Ascorbic Acid (Vitamin C Tab*) 1,000 mg PO DAILY [facility] Last Admin: 03/31/18 08:59 Dose: 1,000 mg Atorvastatin Calcium (Lipitor*) 10 mg PO 2100 [facility] Last Admin: 03/30/18 21:25 Dose: 10 mg Capsaicin (Zostrix 0.025% Cream*) 1 applic TOPICAL BID PRN PRN Reason: pain Last Admin: 03/30/18 11:19 Dose: 1 applic Cephalexin HCl (Keflex Cap*) 500 mg PO TID [facility] Stop: 04/01/18 14:01 Last Admin: 03/31/18 13:08 Dose: 500 mg Cholecalciferol (Vitamin D Tab*) 1,000 units PO DAILY [facility] Last Admin: 03/31/18 08:59 Dose: 1,000 units Diphenhydramine HCl (Benadryl Po*) 25 mg PO Q6H PRN PRN Reason: ITCHING Last Admin: 03/31/18 13:08 Dose: 25 mg Famotidine (Pepcid Tab*) 20 mg PO BID PRN PRN Reason: HEARTBURN Heparin Sodium (Porcine) (Heparin Flush Picc/Ml/Cvc(*)) 1 ml FLUSH 0600,1800 [facility]; Protocol Last Admin: 03/31/18 06:19 Dose: 1 ml Heparin Sodium (Porcine) (Heparin Vial(*)) 5,000 units SUBCUT Q8HR [facility] Last Admin: 03/31/18 13:08 Dose: Not Given Vancomycin HCl 1,000 mg/ (Sodium Chloride) 250 mls @ 166.667 mls/hr IVPB Q12H [facility] Last Admin: 03/31/18 10:29 Dose: 166.667 mls/hr Sodium Chloride (Ns 0.9% 1000 Ml*) 1,000 mls @ 100 mls/hr IV PER RATE [facility] Last Admin: 03/31/18 10:29 Dose: 100 mls/hr Magnesium Hydroxide (Milk Of Magnesia Liq*) 30 ml PO Q4H PRN PRN Reason: CONSTIPATION Morphine Sulfate (Morphine Oral.Soln 10 Mg*) 5 mg PO Q8H PRN PRN Reason: PAIN Last Admin: 03/30/18 15:36 Dose: 5 mg Ondansetron HCl (Zofran Inj*) 4 mg IV Q4H PRN PRN Reason: NAUSEA/VOMITING Pharmacy Consult (Vancomycin Per Pharmacy*) 1 note FOLLOW UP .VANC PER PHARMACY [facility] Quetiapine Fumarate (Seroquel Tab*) 50 mg PO BEDTIME [facility] Last Admin: 03/30/18 21:24 Dose: 50 mg Sertraline HCl (Zoloft*) 50 mg PO DAILY [facility] Last Admin: 03/31/18 08:59 Dose: 50 mg Tizanidine HCl (Zanaflex Tab*) 4 mg PO QID PRN PRN Reason: SPASMS Last Admin: 03/30/18 14:04 Dose: 4 mg - Discharge Plan Discharge Plan: Inpatient Hospitalization
[2018-03-31] MEDS: QUEtiapine TAB* 25 MG PO SCH ×2 (21:15→21:49)
[2018-03-31] MEDS: Metoprolol Tartrate TAB* 25 MG PO SCH (21:15)
[2018-03-31] MEDS: Atorvastatin* 10 MG TAB PO SCH (21:42)
[2018-03-31] MEDS ORDERED: Melatonin 3 MG TAB PO PRN (21:49)
[2018-04-01] MEDS: QUEtiapine TAB* 25 MG PO SCH ×2 (02:10→21:41)
[2018-04-01] MEDS: diPHENhydraMINE PO* 25 MG PO PRN (02:11)
[2018-04-01] MEDS: Heparin VIAL(*) 5000 UNITS/ML VIAL (FIVE THOUSAND) SUBCUT SCH ×3 (05:31→21:43)
[2018-04-01] MEDS: Acetaminophen TAB* 325 MG PO PRN (05:49)
--- NOTE | 2018-04-01 07:23 | PN ---
Subjective Date of Service: 04/01/18 Interval History: Mr. Barth denies any acute complaint today. He has had no further episodes of unresponsiveness. He denies chest pain, SOB, nasuea, or abdominal pain. Objective Active Medications: Acetaminophen (Tylenol Tab*) 650 mg PO Q4H PRN Al Hydrox/Mg Hydrox/Simethicone (Maalox Plus*) 30 ml PO Q6H PRN Albuterol (Ventolin 2.5 Mg/3 Ml Neb.Dayami*) 2.5 mg INH [id number] AWAKE PRN Ascorbic Acid (Vitamin C Tab*) 1,000 mg PO DAILY [facility] Atorvastatin Calcium (Lipitor*) 10 mg PO 2100 [facility] Capsaicin (Zostrix 0.025% Cream*) 1 applic TOPICAL BID PRN Cephalexin HCl (Keflex Cap*) 500 mg PO TID [facility] Cholecalciferol (Vitamin D Tab*) 1,000 units PO DAILY [facility] Diphenhydramine HCl (Benadryl Po*) 25 mg PO Q6H PRN Famotidine (Pepcid Tab*) 20 mg PO BID PRN Heparin Sodium (Porcine) (Heparin Flush Picc/Ml/Cvc(*)) 1 ml FLUSH 0600,1800 [facility]; Protocol Heparin Sodium (Porcine) (Heparin Vial(*)) 5,000 units SUBCUT Q8HR [facility] Vancomycin HCl 1,000 mg/ (Sodium Chloride) 250 mls @ 166.667 mls/hr IVPB Q12H [facility] Sodium Chloride (Ns 0.9% 1000 Ml*) 1,000 mls @ 100 mls/hr IV PER RATE [facility] Magnesium Hydroxide (Milk Of Magnnanda Liq*) 30 ml PO Q4H PRN Melatonin (Melatonin) 3 mg PO BEDTIME PRN; Protocol Metoprolol Tartrate (Lopressor Tab*) 12.5 mg PO Q12HR [facility] Morphine Sulfate (Morphine Oral.Soln 10 Mg*) 5 mg PO Q8H PRN Ondansetron HCl (Zofran Inj*) 4 mg IV Q4H PRN Pharmacy Consult (Vancomycin Per Pharmacy*) 1 note FOLLOW UP .VANC PER PHARMACY [facility] Quetiapine Fumarate (Seroquel Tab*) 50 mg PO BEDTIME [facility] Sertraline HCl (Zoloft*) 50 mg PO DAILY [facility] Tizanidine HCl (Zanaflex Tab*) 4 mg PO QID PRN Vital Signs: Temp Pulse Resp BP Pulse Ox 97.5 F 91 16 118/71 100 04/01/18 07:00 04/01/18 07:00 04/01/18 07:00 04/01/18 07:00 04/01/18 07:00 Oxygen Devices in Use Now: None Appearance: Male lying in bed in NAD Eyes: No Scleral Icterus Ears/Nose/Mouth/Throat: Mucous Membranes Moist Neck: Trachea Midline Respiratory: Symmetrical Chest Expansion and Respiratory Effort, Clear to Auscultation Cardiovascular: NL Sounds; No Murmurs; No JVD, No Edema Abdominal: NL Sounds; No Tenderness; No Distention Lymphatic: No Cervical Adenopathy Extremities: No Edema Skin: No Rash or Ulcers Neurological: Alert and Oriented x 3, - - No movement to bilateral LEs, +5 strength in UEs bilaterally Nutrition: Taking PO's Result Diagrams: 03/31/18 10:24 03/31/18 10:24 Assess/Plan/Problems-Billing Assessment: Mr. Barth is a 52 yo male with a PMH of CVA, osteomyelitis on IV vancomycin therapy, and multiple suicide attempts who was admitted on 03/29/18 after a suicide attempt and required inpatient medical hospitalization for administration of IV vancomycin while receiving psychiatric treatment from our Behavioral Services team. - Patient Problems (1) Syncope Comment: - No further episodes, patient noted to have multiple similar episodes at [facility] ultimately thought to be pseudoseizures or conversion disorder. - No arrhythmia noted on telemetry, CBC/CMP without significant abnormality. Stop IV fluids, EEG pending. (2) Suicide attempt Comment: - BHU team following daily, continues to recommend one to one observation. - With bipolar disorder, now described as hypomanic. - Continue sertraline, duloxetine discontinued, quietapine started. (3) Osteomyelitis Comment: - From decubitus ulcer. - Continue IV vancomycin per routine, pharmacy to dose based on troughs. - Patient recommended to have 6 weeks of vancomycin, started on 03/01/[address] De Leon, [facility] ID, for MRSA UTI, bacteremia, and osteomyelitis with abscess. - Patient will need inpatient ID and ortho follow up if not able to be discharged in a reasonable time frame to follow up at [facility]. (4) UTI (urinary tract infection) Comment: - Stop keflex, urine cultures with brittany, suspect colonization given chronic suprapubic catheters. (5) Paraplegia Comment: - Hx of CVA with [employer] shunt. - Patient has suprapubic catheter for hx of urinary retention, last changed 03/01. - Supportive care. (6) Hypertension Comment: - SBP down to 90s overnight - Continue lisinopril and reduced dose metoprolol. (7) Hyperlipidemia Comment: - Continue atorvastatin. (8) DVT prophylaxis Comment: - Heparin SQ. (9) Full code status Comment: Status and Disposition: Inpatient. Patient from [facility] but is adamant about not returning there. 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
[2018-04-01] MEDS: Vancomycin(*) 1,000 MG in NS 0.9% 250 ML* 250 ML IVPB SCH ×2 (09:35→22:42)
[2018-04-01] MEDS: Metoprolol Tartrate TAB* 25 MG PO SCH ×2 (09:45→21:41)
[2018-04-01] MEDS: tiZANidine TAB* 2 MG PO PRN (09:46)
[2018-04-01] MEDS: Cholecalciferol TAB* 1000 UNITS PO SCH (09:46)
[2018-04-01] MEDS: Sertraline* 50 MG TAB PO SCH (09:47)
[2018-04-01] MEDS: Ascorbic Acid TAB* 500 MG PO SCH (09:47)
--- NOTE | 2018-04-01 10:50 | CONSULT ---
Consult Consult: Psychiatry attempted to see Mr. Barth this AM for follow up, however, he is undergoing EEG at this time and the tech informs me that he cannot converse. This does not stop the patient from greeting me and attempting to engage me in a discussion. Psychiatry will re-engage tomorrow, April 02.
[2018-04-01] MEDS: Morphine ORAL.SOLN 10 mg* 2 MG/ML UDC 5 ml PO PRN (21:42)
[2018-04-01] MEDS: Atorvastatin* 10 MG TAB PO SCH (21:45)
[2018-04-02] MEDS ORDERED: HYDROmorphone INJ* 0.5 MG/0.5 ML SYRINGE IV SLOW PU ONE (03:27)
--- NOTE | 2018-04-02 03:42 | EEG ---
ELECTROENCEPHALOGRAPHY: DATE OF STUDY: 04/01/18 REFERRING PROVIDER: Karina Ortiz NP LOCATION: He is an inpatient in room 417. CLINICAL HISTORY: Patient admitted with suicide attempt. 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 The patient apparently has an interventricular shunt. MEDICATIONS: Include: 1. Cephalexin. 2. Morphine. 3. Ondansetron. 4. Quetiapine. 5. Atorvastatin. 6. Vancomycin. 7. Sertraline. 8. Metoprolol. 9. Vitamins. REPORT: This 16-channel EEG is remarkable for background rhythms consisting of a posterior rhythm at about 8.5 to 9 cycles per second more prominent from the right occipital region in the left. Lower voltage beta rhythms are seen bifrontally. Central slowing is seen frequently during drowsiness and the patient does sleep multiple times during recording with vertex slowing and some sleep spindles. Activation procedures were not attempted. There were no clinical events. There are no focal, lateralized, or epileptiform abnormalities. CLINICAL IMPRESSION: Normal awake, drowsy, and asleep EEG. [id number]/[facility] #: [id number] [facility]ITALTammy
[2018-04-02] MEDS: diPHENhydraMINE PO* 25 MG PO PRN (04:05)
[2018-04-02] MEDS ORDERED: HYDROmorphone INJ1* 1 MG/ML SYRINGE ONE (04:26)
[2018-04-02] MEDS: Heparin VIAL(*) 5000 UNITS/ML VIAL (FIVE THOUSAND) SUBCUT SCH ×3 (05:27→21:51)
[2018-04-02] MEDS: Metoprolol Tartrate TAB* 25 MG PO SCH ×2 (07:34→20:31)
[2018-04-02] MEDS: Ascorbic Acid TAB* 500 MG PO SCH (07:34)
[2018-04-02] MEDS: Cholecalciferol TAB* 1000 UNITS PO SCH (07:35)
[2018-04-02] MEDS: Sertraline* 50 MG TAB PO SCH (07:36)
[2018-04-02] MEDS: tiZANidine TAB* 2 MG PO PRN ×2 (07:41→13:07)
[2018-04-02] MEDS ORDERED: Vancomycin Trough Check NOTE FOLLOW UP ONE (09:30)
[2018-04-02 10:01] LABS: EGFR Non-African American 153.2 (>60)
[2018-04-02 10:02] LABS: Vancomycin Trough 20.9 mcg/mL
[2018-04-02] MEDS: Vancomycin(*) 1,000 MG in NS 0.9% 250 ML* 250 ML IVPB SCH (10:08)
[2018-04-02] MEDS ORDERED: Vancomycin(*) 750 MG in NS 0.9% 250 ML* 250 ML IVPB SCH ×2 (11:26→22:00)
--- NOTE | 2018-04-02 11:57 | PN ---
Subjective Date of Service: 04/02/18 Interval History: . Pt reports he feels "good today" but reports LE pain which he has at his baseline and currently doesnt feel that the oral morphine is working. he denies fever/chills. No N/v/D. Spoke with Dr. Serrano who does not feel that the patient is suicidal and ok to come off 1:1 monitoring. Objective Active Medications: Acetaminophen (Tylenol Tab*) 650 mg PO Q4H PRN PRN Reason: FEVER/PAIN Last Admin: 04/01/18 05:49 Dose: 650 mg Al Hydrox/Mg Hydrox/Simethicone (Maalox Plus*) 30 ml PO Q6H PRN PRN Reason: INDIGESTION Albuterol (Ventolin 2.5 Mg/3 Ml Neb.Dayami*) 2.5 mg INH [id number] AWAKE PRN PRN Reason: sob/wheezing Ascorbic Acid (Vitamin C Tab*) 1,000 mg PO DAILY [facility] Last Admin: 04/02/18 07:34 Dose: 1,000 mg Atorvastatin Calcium (Lipitor*) 10 mg PO 2100 [facility] Last Admin: 04/01/18 21:45 Dose: 10 mg Capsaicin (Zostrix 0.025% Cream*) 1 applic TOPICAL BID PRN PRN Reason: pain Last Admin: 03/30/18 11:19 Dose: 1 applic Cholecalciferol (Vitamin D Tab*) 1,000 units PO DAILY [facility] Last Admin: 04/02/18 07:35 Dose: 1,000 units Collagenase (Santyl 250 Mg/Gm Oint*) 1 applic TOPICAL DAILY [facility] Diphenhydramine HCl (Benadryl Po*) 25 mg PO Q6H PRN PRN Reason: ITCHING Last Admin: 04/02/18 04:05 Dose: 25 mg Famotidine (Pepcid Tab*) 20 mg PO BID PRN PRN Reason: HEARTBURN Heparin Sodium (Porcine) (Heparin Flush Picc/Ml/Cvc(*)) 1 ml FLUSH 0600,1800 [facility]; Protocol Last Admin: 04/02/18 05:27 Dose: 1 ml Heparin Sodium (Porcine) (Heparin Vial(*)) 5,000 units SUBCUT Q8HR [facility] Last Admin: 04/02/18 05:27 Dose: 5,000 units Vancomycin HCl 750 mg/ Sodium (Chloride) 250 mls @ 166.667 mls/hr IVPB 1000, 2200 [facility] Magnesium Hydroxide (Milk Of Magnesia Liq*) 30 ml PO Q4H PRN PRN Reason: CONSTIPATION Melatonin (Melatonin) 3 mg PO BEDTIME PRN; Protocol PRN Reason: SLEEP Metoprolol Tartrate (Lopressor Tab*) 12.5 mg PO Q12HR [facility] Last Admin: 04/02/18 07:34 Dose: 12.5 mg Morphine Sulfate (Morphine Oral.Soln 10 Mg*) 5 mg PO Q8H PRN PRN Reason: PAIN Last Admin: 04/01/18 21:42 Dose: 5 mg Ondansetron HCl (Zofran Inj*) 4 mg IV Q4H PRN PRN Reason: NAUSEA/VOMITING Pharmacy Consult (Vancomycin Per Pharmacy*) 1 note FOLLOW UP .VANC PER PHARMACY [facility] Pharmacy Profile Note (Vancomycin Trough Check) 1 note FOLLOW UP 09 ONE Stop: 04/04/18 09:31 Quetiapine Fumarate (Seroquel Tab*) 50 mg PO BEDTIME [facility] Last Admin: 04/01/18 21:41 Dose: 50 mg Sertraline HCl (Zoloft*) 50 mg PO DAILY [facility] Last Admin: 04/02/18 07:36 Dose: 50 mg Tizanidine HCl (Zanaflex Tab*) 4 mg PO QID PRN PRN Reason: SPASMS Last Admin: 04/02/18 07:41 Dose: 4 mg Vital Signs - 8 hr 04/02/18 04/02/18 04/02/18 04:05 04:29 05:29 Temperature Pulse Rate Respiratory 17 17 17 Rate Blood Pressure (mmHg) O2 Sat by Pulse Oximetry 04/02/18 04/02/18 04/02/18 07:32 07:36 08:00 Temperature 98.3 F Pulse Rate 101 Respiratory 18 20 20 Rate Blood Pressure 146/79 (mmHg) O2 Sat by Pulse 100 Oximetry Oxygen Devices in Use Now: None Appearance: thin chronically ill 52 yo male A+O x3 in NAD, Eyes: No Scleral Icterus, PERRLA Ears/Nose/Mouth/Throat: NL Teeth, Lips, Gums, Mucous Membranes Moist Neck: NL Appearance and Movements; NL JVP Respiratory: Symmetrical Chest Expansion and Respiratory Effort, Clear to Auscultation Cardiovascular: NL Sounds; No Murmurs; No JVD, RRR, No Edema Abdominal: NL Sounds; No Tenderness; No Distention Lymphatic: No Cervical Adenopathy Extremities: No Edema Skin: No Rash or Ulcers, No Nodules or Sclerosis Neurological: Alert and Oriented x 3, NL Sensation Lines/Tubes/Other Access: Clean, Dry and Intact Peripheral IV Nutrition: Taking PO's - Nutrition: Malnutrition Diagnosis/Plan Malnutrition Assessment by Registered Dietitian: Malnutrition Assessment Clinical Characteristics Acute,Severe Malnutrition Assessment: - Moderate temporal muscle wasting and muscle Criteria wasting of upper extrmities - Underweight: BMI 17.0 - Pt report of 20% wt loss (severe) Malnutrition Assessment: - Will send whole milk daily at B, L, D (170 Interventions kcals, 8 grams protein per serving) - Will send double protein portions at B, L, D Malnutrition Assessment: Goals 1. Intake will promote weight repletion w/o additional loss of lean body mass - Goal: > 75% intake of meals 2. Intake will promote wound healing w/o additional pressure related skin breakdown Result Diagrams: 03/31/18 10:24 04/02/18 09:04 Microbiology and Other Data: Microbiology 03/29/18 22:47 Nasal Screen MRSA (PCR) - Final Nasal Mrsa Detected Assess/Plan/Problems-Billing Assessment: Mr. Barth is a 52 yo male with a PMH of CVA, osteomyelitis on IV vancomycin therapy, and multiple suicide attempts who was admitted on 03/29/18 after a suicide attempt and required inpatient medical hospitalization for administration of IV vancomycin while receiving psychiatric treatment from our Behavioral Services team. - Patient Problems (1) Suicide attempt Comment: - U team following daily, ok to DC 1:1 - With bipolar disorder - Continue sertraline, duloxetine discontinued, quietapine started - per pt he wants dose reduced to 25 mg - per psych ok to reduce for pt preference and concern (2) Osteomyelitis Comment: - From decubitus ulcer. - Continue IV vancomycin per routine, pharmacy to dose based on troughs. - Patient recommended to have 6 weeks of vancomycin, started on 03/01/[address] De Leon, [facility] ID, for MRSA UTI, bacteremia, and osteomyelitis with abscess. - Patient will need inpatient ID and ortho follow up if not able to be discharged in a reasonable time frame to follow up at [facility]. (3) Syncope Comment: - No further episodes, patient noted to have multiple similar episodes at [facility] ultimately thought to be pseudoseizures or conversion disorder. - No arrhythmia noted on telemetry, CBC/CMP without significant abnormality. Stop IV fluids, EEG normal (4) Hyperlipidemia Comment: - Continue atorvastatin. (5) Hypertension Comment: - stable - Continue lisinopril and reduced dose metoprolol. (6) Paraplegia Comment: - Hx of CVA with CAR [employer]AC[employer] shunt. - Patient has suprapubic catheter for hx of urinary retention, last changed 03/01. - Supportive care. (7) UTI (urinary tract infection) Comment: - Stop keflex, urine cultures with brittany, suspect colonization given chronic suprapubic catheters. (8) Full code status Comment: (9) DVT prophylaxis Comment: - Heparin SQ. Status and Disposition: Inpatient. Patient from [facility] but is adamant about not returning there. 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
[2018-04-02] MEDS: Collagenase 250 MG/GM OINT* 30 GM TOPICAL SCH (13:07)
--- NOTE | 2018-04-02 18:00 | CONSULT ---
Identification - Patient Identification Reason for Psychiatric Consultation: Suicidal Ideation -: Patient is a 52 year old, M admitted on 03/29/18. - MHU Identification Employment Status: Disabled Hx Psychiatric Hospitalization: Yes History - Objective HPI: Gabriel is seen by the psych consult team for follow up. He remains overtalkative and grandiose, telling me at one point that he has a great idea for a "geothermal hydroelectric energy generator that will provide power for the entire country." He has been reluctant to take quetiapine over the past several nights because he attributes his episode of hypotension over the weekend to this med. "I do not consent to it. It could kill me. Once you're , who do you complain to?" He does agree to trying it at the lowest dose and would perhaps consider increasing it thereafter if his pressure is stable. I did ask repeatedly, as I have since his admission, about further suicidal thinking, which he steadfastly denies. "I only did that because I wasn't getting what I needed at [facility] and [facility]." Discussing it with - staff they appear comfortable with a trial off 1:1. Exam Appearance: Thin Framed Hygiene: Mal-odorous Grooming: Fairly Well Kept Psychomotor Activities: Normal Exhibits Abnormal Movement: No Attitude and Relatedness: Cooperative Eye Contact: Fair - Speech Quality: Pressured Latencies: Short Quantity: Copious Patient's Decription of Mood: "Okay" Observed Affect: Expansive Affect Consistent with: Euphoria Patient's Thought Process: Tangential Thought Content: No Passive Wish, No Suicidal Planning, No Homicidal Ideation, No Paranoid Ideation Experiencing Hallucinations: No, Sensorium is Clear Type of Hallucinations: Visual: No, Auditory: No, Command: No Level of Consciousness: Alert Orientation: Yes Intact, Yes Orientated to Time, Yes Orientated to Place, Yes Orientated to Person Impulse Control: Poor Insight and Judgement: Impaired Impression - Impression Clinical Impression: 52 y.o. , white male with paraplegia, arrives on 9.41 from [facility] following a suicidal gesture in which he tied a sheet around his neck and motioned to hang himself. Inpatient DSM-V Dx: F31.9 Merits Inpatient Hospitalization: No Plan - Treatment Plan Treatment Plan: The patient denies current SI and I don't think 1:1 observations are warranted. He is hypomanic and we will decrease sertraline from 50 to 25mg. Duloxetine has been discontinued and we started a trial of quetiapine 50mg PO qhs. He insists on this being decreased to 25mg. He needs placement at this time and I don't think further hospitalization is warranted. Psychiatry will continue to follow daily. Continued Medication Management: Different Medication Medications: Current Medications Acetaminophen (Tylenol Tab*) 650 mg PO Q4H PRN PRN Reason: FEVER/PAIN Last Admin: 04/01/18 05:49 Dose: 650 mg Al Hydrox/Mg Hydrox/Simethicone (Maalox Plus*) 30 ml PO Q6H PRN PRN Reason: INDIGESTION Albuterol (Ventolin 2.5 Mg/3 Ml Neb.Dayami*) 2.5 mg INH [id number] AWAKE PRN PRN Reason: sob/wheezing Ascorbic Acid (Vitamin C Tab*) 1,000 mg PO DAILY [facility] Last Admin: 04/02/18 07:34 Dose: 1,000 mg Atorvastatin Calcium (Lipitor*) 10 mg PO 2100 [facility] Last Admin: 04/01/18 21:45 Dose: 10 mg Capsaicin (Zostrix 0.025% Cream*) 1 applic TOPICAL BID PRN PRN Reason: pain Last Admin: 03/30/18 11:19 Dose: 1 applic Cholecalciferol (Vitamin D Tab*) 1,000 units PO DAILY [facility] Last Admin: 04/02/18 07:35 Dose: 1,000 units Collagenase (Santyl 250 Mg/Gm Oint*) 1 applic TOPICAL DAILY [facility] Last Admin: 04/02/18 13:07 Dose: 1 applic Diphenhydramine HCl (Benadryl Po*) 25 mg PO Q6H PRN PRN Reason: ITCHING Last Admin: 04/02/18 04:05 Dose: 25 mg Famotidine (Pepcid Tab*) 20 mg PO BID PRN PRN Reason: HEARTBURN Heparin Sodium (Porcine) (Heparin Flush Picc/Ml/Cvc(*)) 1 ml FLUSH 0600,1800 [facility]; Protocol Last Admin: 04/02/18 16:54 Dose: 1 ml Heparin Sodium (Porcine) (Heparin Vial(*)) 5,000 units SUBCUT Q8HR [facility] Last Admin: 04/02/18 13:07 Dose: 5,000 units Vancomycin HCl 750 mg/ Sodium (Chloride) 250 mls @ 166.667 mls/hr IVPB 1000, 2200 [facility] Magnesium Hydroxide (Milk Of Magnesia Liq*) 30 ml PO Q4H PRN PRN Reason: CONSTIPATION Melatonin (Melatonin) 3 mg PO BEDTIME PRN; Protocol PRN Reason: SLEEP Metoprolol Tartrate (Lopressor Tab*) 12.5 mg PO Q12HR [facility] Last Admin: 04/02/18 07:34 Dose: 12.5 mg Morphine Sulfate (Morphine Oral.Soln 10 Mg*) 5 mg PO Q8H PRN PRN Reason: PAIN Last Admin: 04/01/18 21:42 Dose: 5 mg Ondansetron HCl (Zofran Inj*) 4 mg IV Q4H PRN PRN Reason: NAUSEA/VOMITING Pharmacy Consult (Vancomycin Per Pharmacy*) 1 note FOLLOW UP .VANC PER PHARMACY [facility] Pharmacy Profile Note (Vancomycin Trough Check) 1 note FOLLOW UP 09 ONE Stop: 04/04/18 09:31 Quetiapine Fumarate (Seroquel Tab*) 25 mg PO BEDTIME [facility] Sertraline HCl (Zoloft*) 25 mg PO DAILY [facility] Tizanidine HCl (Zanaflex Tab*) 4 mg PO QID PRN PRN Reason: SPASMS Last Admin: 04/02/18 13:07 Dose: 4 mg - Discharge Plan Discharge Plan: Outpatient Follow Up
[2018-04-02] MEDS: Gabapentin CAP(*) 100 MG PO SCH (20:30)
[2018-04-02] MEDS: Atorvastatin* 10 MG TAB PO SCH (20:31)
[2018-04-02] MEDS: Morphine ORAL.SOLN 10 mg* 2 MG/ML UDC 5 ml PO PRN (20:31)
[2018-04-02] MEDS: QUEtiapine TAB* 25 MG PO SCH ×2 (20:31→20:38)
[2018-04-02] MEDS: Vancomycin(*) 750 MG in NS 0.9% 250 ML* 250 ML IVPB SCH (21:47)
[2018-04-03 04:43] LABS: ABS Basophils 0 10^3/ul (0-0.2); ABS Eosinophils 0.5 10^3/ul (0-0.6); ABS Monocytes 0.6 10^3/ul (0-0.8); ABS Neutrophils 5.6 10^3/ul (1.5-7.7); ABS Nucleated RBC 0 10^3/ul; Eosinophil % 5.4 % (0-6); Hematocrit 30 % (42-52); Hemoglobin 9.8 g/dl (14.0-18.0); Lymphocyte % 23.1 % (25-47); Mean Corpuscular HGB Conc 33 g/dl (31-36); Mean Corpuscular Hemoglobin 28 pg (27-31); Mean Corpuscular Volume 85 fL (80-94); Mean Platelet Volume 7.3 um3 (7.4-10.4); Nucleated Red Blood Cells % 0; Platelet Count 434 10^3/ul (150-450); Red Blood Count 3.48 10^6/ul (4.00-5.40); Red Cell Distribution Width 17 % (10.5-15); White Blood Count 8.7 10^3/ul (3.5-10.8)
[2018-04-03 04:58] LABS: EGFR Non-African American 124.6 (>60)
[2018-04-03] MEDS: Heparin VIAL(*) 5000 UNITS/ML VIAL (FIVE THOUSAND) SUBCUT SCH ×2 (05:52→13:27)
[2018-04-03] MEDS ORDERED: Magnesium Sulfate IV* 3 GM in NS 0.9% 100 ML* 100 ML IVPB ONE (08:00)
[2018-04-03] MEDS: Collagenase 250 MG/GM OINT* 30 GM TOPICAL SCH (09:44)
[2018-04-03] MEDS: Gabapentin CAP(*) 100 MG PO SCH ×2 (09:50→13:26)
[2018-04-03] MEDS: Cholecalciferol TAB* 1000 UNITS PO SCH (09:50)
[2018-04-03] MEDS: Metoprolol Tartrate TAB* 25 MG PO SCH (09:50)
[2018-04-03] MEDS: Ascorbic Acid TAB* 500 MG PO SCH (09:50)
[2018-04-03] MEDS: Sertraline* 25 MG TAB PO SCH (09:51)
[2018-04-03] MEDS: Capsaicin 0.025% CREAM* 60 GM TOPICAL PRN (10:11)
[2018-04-03] MEDS: Vancomycin(*) 750 MG in NS 0.9% 250 ML* 250 ML IVPB SCH (12:37)
--- NOTE | 2018-04-03 12:46 | PN ---
Subjective Date of Service: 04/03/18 Interval History: Pt reports he has no pain currently. He is upset about going back to [facility] stating "they tried to kill me" and reports he may appeal the discharge. Then he states fine just send me there. He denies any suicidal ideation. He reports that his wound care has all been through [place] - he reports there appears to be improved with his wounds. He denies fever/chills. He is to follow up with his doctor in [place] for the osteo. Objective Active Medications: Acetaminophen (Tylenol Tab*) 650 mg PO Q4H PRN PRN Reason: FEVER/PAIN Last Admin: 04/01/18 05:49 Dose: 650 mg Al Hydrox/Mg Hydrox/Simethicone (Maalox Plus*) 30 ml PO Q6H PRN PRN Reason: INDIGESTION Albuterol (Ventolin 2.5 Mg/3 Ml Neb.Dayami*) 2.5 mg INH [id number] AWAKE PRN PRN Reason: sob/wheezing Ascorbic Acid (Vitamin C Tab*) 1,000 mg PO DAILY [facility] Last Admin: 04/03/18 09:50 Dose: Not Given Atorvastatin Calcium (Lipitor*) 10 mg PO 2100 [facility] Last Admin: 04/02/18 20:31 Dose: 10 mg Capsaicin (Zostrix 0.025% Cream*) 1 applic TOPICAL BID PRN PRN Reason: pain Last Admin: 04/03/18 10:11 Dose: 1 applic Cholecalciferol (Vitamin D Tab*) 1,000 units PO DAILY [facility] Last Admin: 04/03/18 09:50 Dose: Not Given Collagenase (Santyl 250 Mg/Gm Oint*) 1 applic TOPICAL DAILY [facility] Last Admin: 04/03/18 09:44 Dose: 1 applic Diphenhydramine HCl (Benadryl Po*) 25 mg PO Q6H PRN PRN Reason: ITCHING Last Admin: 04/02/18 04:05 Dose: 25 mg Famotidine (Pepcid Tab*) 20 mg PO BID PRN PRN Reason: HEARTBURN Gabapentin (Neurontin Cap(*)) 100 mg PO TID [facility] Last Admin: 04/03/18 09:50 Dose: Not Given Heparin Sodium (Porcine) (Heparin Flush Picc/Ml/Cvc(*)) 1 ml FLUSH 0600,1800 [facility]; Protocol Last Admin: 04/03/18 05:51 Dose: 1 ml Heparin Sodium (Porcine) (Heparin Vial(*)) 5,000 units SUBCUT Q8HR [facility] Last Admin: 04/03/18 05:52 Dose: 5,000 units Vancomycin HCl 750 mg/ Sodium (Chloride) 250 mls @ 166.667 mls/hr IVPB 1000, 2200 [facility] Last Admin: 04/03/18 12:37 Dose: 166.667 mls/hr Magnesium Hydroxide (Milk Of Magnesia Liq*) 30 ml PO Q4H PRN PRN Reason: CONSTIPATION Melatonin (Melatonin) 3 mg PO BEDTIME PRN; Protocol PRN Reason: SLEEP Metoprolol Tartrate (Lopressor Tab*) 12.5 mg PO Q12HR [facility] Last Admin: 04/03/18 09:50 Dose: Not Given Morphine Sulfate (Morphine Oral.Soln 10 Mg*) 5 mg PO Q8H PRN PRN Reason: PAIN Last Admin: 04/01/18 21:42 Dose: 5 mg Ondansetron HCl (Zofran Inj*) 4 mg IV Q4H PRN PRN Reason: NAUSEA/VOMITING Pharmacy Consult (Vancomycin Per Pharmacy*) 1 note FOLLOW UP .VANC PER PHARMACY [facility] Pharmacy Profile Note (Vancomycin Trough Check) 1 note FOLLOW UP 929 ONE Stop: 04/04/18 09:31 Quetiapine Fumarate (Seroquel Tab*) 25 mg PO BEDTIME [facility] Last Admin: 04/02/18 20:38 Dose: Not Given Sertraline HCl (Zoloft*) 25 mg PO DAILY [facility] Last Admin: 04/03/18 09:51 Dose: Not Given Tizanidine HCl (Zanaflex Tab*) 4 mg PO QID PRN PRN Reason: SPASMS Last Admin: 04/02/18 13:07 Dose: 4 mg Vital Signs - 8 hr 04/03/18 04/03/18 04/03/18 08:00 08:11 11:15 Temperature 98.1 F 99.1 F Pulse Rate 99 Respiratory 18 Rate Blood Pressure 147/95 (mmHg) O2 Sat by Pulse 100 Oximetry 04/03/18 11:17 Temperature Pulse Rate 124 Respiratory 18 Rate Blood Pressure 126/75 (mmHg) O2 Sat by Pulse 100 Oximetry Oxygen Devices in Use Now: None Appearance: thin male laying in bed in bed A+O x3 - slightly manic in his speech Eyes: No Scleral Icterus, PERRLA Ears/Nose/Mouth/Throat: NL Teeth, Lips, Gums, Mucous Membranes Moist Respiratory: Symmetrical Chest Expansion and Respiratory Effort, Clear to Auscultation Cardiovascular: NL Sounds; No Murmurs; No JVD, RRR, No Edema Abdominal: NL Sounds; No Tenderness; No Distention Extremities: No Edema, No Clubbing, Cyanosis Skin: - - Buttock has two wounds - Right lower buttock 2.25 cm x 1.5 cm intact with dark necrotic center with healthy appearing surrounding tissue. right coccyx 2.5 cm x 1.5 cm with necrotic center with healthy appearing surrounding tissue. Lines/Tubes/Other Access: Clean, Dry and Intact Peripheral IV, Clean, Dry and Intact Other Access - suprapubic catheter Nutrition: Taking PO's - Nutrition: Malnutrition Diagnosis/Plan Malnutrition Assessment by Registered Dietitian: Malnutrition Assessment Clinical Characteristics Acute,Severe Malnutrition Assessment: - Moderate temporal muscle wasting and muscle Criteria wasting of upper extrmities - Underweight: BMI 17.0 - Pt report of 20% wt loss (severe) Malnutrition Assessment: - Will send whole milk daily at B, L, D (170 Interventions kcals, 8 grams protein per serving) - Will send double protein portions at B, L, D Malnutrition Assessment: Goals 1. Intake will promote weight repletion w/o additional loss of lean body mass - Goal: > 75% intake of meals 2. Intake will promote wound healing w/o additional pressure related skin breakdown Result Diagrams: 04/03/18 04:25 04/03/18 04:25 Microbiology and Other Data: Microbiology 03/29/18 22:47 Nasal Screen MRSA (PCR) - Final Nasal Mrsa Detected Assess/Plan/Problems-Billing Assessment: Mr. Barth is a 52 yo male with a PMH of CVA, osteomyelitis on IV vancomycin therapy, and multiple suicide attempts who was admitted on 03/29/18 after a suicide attempt and required inpatient medical hospitalization for administration of IV vancomycin while receiving psychiatric treatment from our Behavioral Services team. - Patient Problems (1) Suicide attempt Comment: - U team following daily, ok to DC 1:1 - With bipolar disorder - Continue sertraline, duloxetine discontinued, quietapine started - per pt he wants dose reduced to 25 mg - per psych ok to reduce for pt preference and concern (2) Osteomyelitis Comment: - From decubitus ulcer - wound appears to be healing - appreciate wound nurse recommendations. 2 unstageable pressure ulcers; R ischium measures 2.7x2.2x0.1 , wound base yellow adherent slough with soft dark eschar in the center with minimal serous drainage. R lower back 1.3x1.5x0.1 with adherent yellow base, soft dark eschar in the center and no drainage. Now on [place] bed with pressure relief mattress. Continue applying Santyl to wound bases daily and cover with gauze. - Continue IV vancomycin per routine, pharmacy to dose based on troughs. - Patient recommended to have 6 weeks of vancomycin, started on 03/01/[address] De Leon, [facility] ID, for MRSA UTI, bacteremia, and osteomyelitis with abscess. - Patient will need inpatient ID and ortho follow up if not able to be discharged in a reasonable time frame to follow up at [facility]. (3) Protein-calorie malnutrition, severe Comment: - add on prealbumin - BMI 17 - Pt reports 20% weight loss - RD following (4) Syncope Comment: - No further episodes, patient noted to have multiple similar episodes at [facility] ultimately thought to be pseudoseizures or conversion disorder. - No arrhythmia noted on telemetry - ok to DC tele - EEG normal (5) Hyperlipidemia Comment: - Continue atorvastatin. (6) Hypertension Comment: - stable - Continue lisinopril, increase metoprolol back to home dose d/t tachycardia and hypertension. (7) Paraplegia Comment: - Hx of CVA with CHIROPRACTIC DOCTOR shunt. - Patient has suprapubic catheter for hx of urinary retention, last changed 03/01. - Supportive care. (8) UTI (urinary tract infection) Comment: - Stop keflex, urine cultures with brittany, suspect colonization given chronic suprapubic catheters. (9) Full code status Comment: (10) DVT prophylaxis Comment: - Heparin SQ. Status and Disposition: Inpatient. Patient from [facility] but is adamant about not returning there. training director and social workers following.
[2018-04-03] MEDS ORDERED: Metoprolol Tartrate TAB* 25 MG PO ONE (12:47)
[2018-04-03] MEDS ORDERED: Alteplase (CATHFLO)* 2 MG/2 ML VIAL IV ONE (16:36)
--- NOTE | 2018-04-03 17:30 | CONSULT ---
Identification - Patient Identification Reason for Psychiatric Consultation: Suicidal Ideation -: Patient is a 52 year old, M admitted on 03/29/18. - MHU Identification Employment Status: Disabled Hx Psychiatric Hospitalization: Yes History - Objective HPI: This clinician was emergently contacted by [facility] staff that Gabriel had made multiple suicidal statements and needed re-evaluation. On exam he is now back on 1:1 status. He denies SI to this clinician and voices his displeasure at being labeled "suicidal." "How is any place supposed to accept me when you guys are calling me a suicidal person." This is after acknowledging that he did make suicidal statements earlier. "Of course I'm going to be suicidal if you send me back to [facility]...I'm going to there anyway. They don't do anything for you there!" He reiterates that he is only going to harm himself if obligated to return to [facility]. The patient requests referral back to [facility] in [place], [place], where he comes from. "I live there for a over a year and a half. 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 Exam Appearance: Thin Framed Hygiene: Mal-odorous Grooming: Fairly Well Kept Psychomotor Activities: Normal Exhibits Abnormal Movement: No Attitude and Relatedness: Cooperative Eye Contact: Fair - Speech Quality: Pressured Latencies: Short Quantity: Copious Patient's Decription of Mood: "Okay" Observed Affect: Expansive Affect Consistent with: Euphoria Patient's Thought Process: Tangential Thought Content: No Passive Wish, No Suicidal Planning, No Homicidal Ideation, No Paranoid Ideation Experiencing Hallucinations: No, Sensorium is Clear Type of Hallucinations: Visual: No, Auditory: No, Command: No Level of Consciousness: Alert Orientation: Yes Intact, Yes Orientated to Time, Yes Orientated to Place, Yes Orientated to Person Impulse Control: Poor Insight and Judgement: Impaired Impression - Impression Clinical Impression: 52 y.o. , white male with paraplegia, arrives on 9.41 from [facility] following a suicidal gesture in which he tied a sheet around his neck and motioned to hang himself. Inpatient DSM-V Dx: F31.9 Merits Inpatient Hospitalization: No Plan - Treatment Plan Treatment Plan: The patient's SI are clearly manipulative in nature I don't think 1:1 observations are warranted. He is hypomanic and we have decreased sertraline from 50 to 25mg. Duloxetine has been discontinued and we started a trial of quetiapine 25mg PO qhs. He needs placement at this time and I don't think further hospitalization is warranted, but he will clearly act out of [place] is his destination after discharge. Psychiatry will continue to follow daily. Continued Medication Management: Different Medication Medications: Current Medications Acetaminophen (Tylenol Tab*) 650 mg PO Q4H PRN PRN Reason: FEVER/PAIN Last Admin: 04/01/18 05:49 Dose: 650 mg Al Hydrox/Mg Hydrox/Simethicone (Maalox Plus*) 30 ml PO Q6H PRN PRN Reason: INDIGESTION Albuterol (Ventolin 2.5 Mg/3 Ml Neb.Dayami*) 2.5 mg INH [id number] AWAKE PRN PRN Reason: sob/wheezing Ascorbic Acid (Vitamin C Tab*) 1,000 mg PO DAILY [facility] Last Admin: 04/03/18 09:50 Dose: Not Given Atorvastatin Calcium (Lipitor*) 10 mg PO 2100 [facility] Last Admin: 04/02/18 20:31 Dose: 10 mg Capsaicin (Zostrix 0.025% Cream*) 1 applic TOPICAL BID PRN PRN Reason: pain Last Admin: 04/03/18 10:11 Dose: 1 applic Cholecalciferol (Vitamin D Tab*) 1,000 units PO DAILY [facility] Last Admin: 04/03/18 09:50 Dose: Not Given Collagenase (Santyl 250 Mg/Gm Oint*) 1 applic TOPICAL DAILY [facility] Last Admin: 04/03/18 09:44 Dose: 1 applic Diphenhydramine HCl (Benadryl Po*) 25 mg PO Q6H PRN PRN Reason: ITCHING Last Admin: 04/02/18 04:05 Dose: 25 mg Famotidine (Pepcid Tab*) 20 mg PO BID PRN PRN Reason: HEARTBURN Gabapentin (Neurontin Cap(*)) 100 mg PO TID [facility] Last Admin: 04/03/18 13:26 Dose: Not Given Heparin Sodium (Porcine) (Heparin Flush Picc/Ml/Cvc(*)) 1 ml FLUSH 0600,1800 [facility]; Protocol Last Admin: 04/03/18 14:52 Dose: 1 ml Heparin Sodium (Porcine) (Heparin Vial(*)) 5,000 units SUBCUT Q8HR [facility] Last Admin: 04/03/18 13:27 Dose: Not Given Vancomycin HCl 750 mg/ Sodium (Chloride) 250 mls @ 166.667 mls/hr IVPB 1000, 2200 [facility] Last Admin: 04/03/18 12:37 Dose: 166.667 mls/hr Magnesium Hydroxide (Milk Of Magnnanda Liq*) 30 ml PO Q4H PRN PRN Reason: CONSTIPATION Melatonin (Melatonin) 3 mg PO BEDTIME PRN; Protocol PRN Reason: SLEEP Metoprolol Succinate (Toprol Xl Tab*) 50 mg PO DAILY [facility] Morphine Sulfate (Morphine Oral.Soln 10 Mg*) 5 mg PO Q8H PRN PRN Reason: PAIN Last Admin: 04/01/18 21:42 Dose: 5 mg Ondansetron HCl (Zofran Inj*) 4 mg IV Q4H PRN PRN Reason: NAUSEA/VOMITING Pharmacy Consult (Vancomycin Per Pharmacy*) 1 note FOLLOW UP .VANC PER PHARMACY [facility] Pharmacy Profile Note (Vancomycin Trough Check) 1 note FOLLOW UP 929 ONE Stop: 04/04/18 09:31 Quetiapine Fumarate (Seroquel Tab*) 25 mg PO BEDTIME [facility] Last Admin: 04/02/18 20:38 Dose: Not Given Sertraline HCl (Zoloft*) 25 mg PO DAILY [facility] Last Admin: 04/03/18 09:51 Dose: Not Given Tizanidine HCl (Zanaflex Tab*) 4 mg PO QID PRN PRN Reason: SPASMS Last Admin: 04/02/18 13:07 Dose: 4 mg - Discharge Plan Discharge Plan: Outpatient Follow Up
[2018-04-04] MEDS: Heparin VIAL(*) 5000 UNITS/ML VIAL (FIVE THOUSAND) SUBCUT SCH ×4 (00:33→21:53)
[2018-04-04] MEDS: Vancomycin(*) 750 MG in NS 0.9% 250 ML* 250 ML IVPB SCH ×2 (00:43→12:41)
[2018-04-04] MEDS: QUEtiapine TAB* 25 MG PO SCH ×2 (00:44→21:20)
[2018-04-04] MEDS: Atorvastatin* 10 MG TAB PO SCH ×2 (00:44→21:19)
[2018-04-04] MEDS: Gabapentin CAP(*) 100 MG PO SCH ×4 (00:44→21:19)
[2018-04-04] MEDS: Morphine ORAL.SOLN 10 mg* 2 MG/ML UDC 5 ml PO PRN ×3 (02:16→21:51)
[2018-04-04] MEDS: Capsaicin 0.025% CREAM* 60 GM TOPICAL PRN ×3 (02:20→21:47)
[2018-04-04 06:44] LABS: EGFR Non-African American 138.8 (>60)
[2018-04-04] MEDS: Ascorbic Acid TAB* 500 MG PO SCH (09:36)
[2018-04-04] MEDS: Metoprolol Succinate XL TAB* 50 MG PO SCH (09:36)
[2018-04-04] MEDS: Sertraline* 25 MG TAB PO SCH (09:36)
[2018-04-04] MEDS: Cholecalciferol TAB* 1000 UNITS PO SCH (09:36)
[2018-04-04] MEDS: Collagenase 250 MG/GM OINT* 30 GM TOPICAL SCH (09:43)
--- NOTE | 2018-04-04 09:53 | PN ---
Subjective Date of Service: 04/04/18 Interval History: Patient is laying in bed with covers over his head. He is upset because he doesnt want to be transferred to [facility] stating "if I go there I will ". He called his PCPs office last night and told them if he is sent there he will "kill myself". This morning he denies suicidal Ideation - he hopes he can be placed some where else and appealed his DC yesterday. He also threatend he will "pull out my picc" last nice and due to these comments pt was placed on close monitoring with a staff member. [place] from left hip surgery from 03/14 are due to be removed - Archana SIMMONS from [facility] called me last evening relaying the cristi are over due to be removed because the pt did not follow up and has missed his last two appointments. Case management/social work following Objective Active Medications: Acetaminophen (Tylenol Tab*) 650 mg PO Q4H PRN PRN Reason: FEVER/PAIN Last Admin: 04/01/18 05:49 Dose: 650 mg Al Hydrox/Mg Hydrox/Simethicone (Maalox Plus*) 30 ml PO Q6H PRN PRN Reason: INDIGESTION Albuterol (Ventolin 2.5 Mg/3 Ml Neb.Dayami*) 2.5 mg INH [id number] AWAKE PRN PRN Reason: sob/wheezing Ascorbic Acid (Vitamin C Tab*) 1,000 mg PO DAILY [facility] Last Admin: 04/04/18 09:36 Dose: 1,000 mg Atorvastatin Calcium (Lipitor*) 10 mg PO 2100 [facility] Last Admin: 04/04/18 00:44 Dose: Not Given Capsaicin (Zostrix 0.025% Cream*) 1 applic TOPICAL BID PRN PRN Reason: pain Last Admin: 04/04/18 09:43 Dose: 1 applic Cholecalciferol (Vitamin D Tab*) 1,000 units PO DAILY [facility] Last Admin: 04/04/18 09:36 Dose: 1,000 units Collagenase (Santyl 250 Mg/Gm Oint*) 1 applic TOPICAL DAILY [facility] Last Admin: 04/04/18 09:43 Dose: 1 applic Diphenhydramine HCl (Benadryl Po*) 25 mg PO Q6H PRN PRN Reason: ITCHING Last Admin: 04/02/18 04:05 Dose: 25 mg Famotidine (Pepcid Tab*) 20 mg PO BID PRN PRN Reason: HEARTBURN Gabapentin (Neurontin Cap(*)) 100 mg PO TID [facility] Last Admin: 04/04/18 00:44 Dose: Not Given Heparin Sodium (Porcine) (Heparin Flush Picc/Ml/Cvc(*)) 1 ml FLUSH 0600,1800 [facility]; Protocol Last Admin: 04/04/18 05:27 Dose: Not Given Heparin Sodium (Porcine) (Heparin Vial(*)) 5,000 units SUBCUT Q8HR [facility] Last Admin: 04/04/18 05:43 Dose: 5,000 units Vancomycin HCl 750 mg/ Sodium (Chloride) 250 mls @ 166.667 mls/hr IVPB 1000, 2200 [facility] Last Admin: 04/04/18 00:43 Dose: 166.667 mls/hr Magnesium Hydroxide (Milk Of Magnesia Liq*) 30 ml PO Q4H PRN PRN Reason: CONSTIPATION Melatonin (Melatonin) 3 mg PO BEDTIME PRN; Protocol PRN Reason: SLEEP Metoprolol Succinate (Toprol Xl Tab*) 50 mg PO DAILY [facility] Last Admin: 04/04/18 09:36 Dose: 50 mg Morphine Sulfate (Morphine Oral.Soln 10 Mg*) 5 mg PO Q8H PRN PRN Reason: PAIN Last Admin: 04/04/18 02:16 Dose: 5 mg Ondansetron HCl (Zofran Inj*) 4 mg IV Q4H PRN PRN Reason: NAUSEA/VOMITING Pharmacy Consult (Vancomycin Per Pharmacy*) 1 note FOLLOW UP .VANC PER PHARMACY [facility] Pharmacy Profile Note (Vancomycin Trough Check) 1 note FOLLOW UP 1130 ONE Stop: 04/04/18 11:31 Quetiapine Fumarate (Seroquel Tab*) 25 mg PO BEDTIME [facility] Last Admin: 04/04/18 00:44 Dose: Not Given Sertraline HCl (Zoloft*) 25 mg PO DAILY [facility] Last Admin: 04/04/18 09:36 Dose: 25 mg Tizanidine HCl (Zanaflex Tab*) 4 mg PO QID PRN PRN Reason: SPASMS Last Admin: 04/02/18 13:07 Dose: 4 mg Vital Signs - 8 hr 04/04/18 04/04/18 02:16 05:21 Respiratory 16 18 Rate Oxygen Devices in Use Now: None Appearance: thin 52 yo male laying in bed A+O x3 - anxious Eyes: No Scleral Icterus, PERRLA Ears/Nose/Mouth/Throat: NL Teeth, Lips, Gums, Mucous Membranes Moist Neck: NL Appearance and Movements; NL JVP Respiratory: Symmetrical Chest Expansion and Respiratory Effort, Clear to Auscultation Cardiovascular: NL Sounds; No Murmurs; No JVD, RRR, No Edema Abdominal: NL Sounds; No Tenderness; No Distention, - - suprapubic catheter intact - no noted drainage - balloon intact - draining clear yellow urine - Skin: - - Left hip intact incision with 30 cristi - mild skin irritation surrounding cristi with mild redness - no drainage - incison appears healed - removed 30 cristi with staple removal without any complications - Pt tolerated it well. Neurological: Alert and Oriented x 3 Lines/Tubes/Other Access: Clean, Dry and Intact PICC Line Nutrition: Taking PO's - Nutrition: Malnutrition Diagnosis/Plan Malnutrition Assessment by Registered Dietitian: Malnutrition Assessment Clinical Characteristics Acute,Severe Malnutrition Assessment: - Moderate temporal muscle wasting and muscle Criteria wasting of upper extrmities - Underweight: BMI 17.0 - Pt report of 20% wt loss (severe) Malnutrition Assessment: - Will send whole milk daily at B, L, D (170 Interventions kcals, 8 grams protein per serving) - Will send double protein portions at B, L, D Malnutrition Assessment: Goals 1. Intake will promote weight repletion w/o additional loss of lean body mass - Goal: > 75% intake of meals 2. Intake will promote wound healing w/o additional pressure related skin breakdown Result Diagrams: 04/03/18 04:25 04/04/18 05:55 Microbiology and Other Data: Microbiology 03/29/18 22:47 Nasal Screen MRSA (PCR) - Final Nasal Mrsa Detected Assess/Plan/Problems-Billing Assessment: Mr. Barth is a 52 yo male with a PMH of CVA, osteomyelitis on IV vancomycin therapy, and multiple suicide attempts who was admitted on 03/29/18 after a suicide attempt and required inpatient medical hospitalization for administration of IV vancomycin while receiving psychiatric treatment from our Behavioral Services team. - Patient Problems (1) Suicide attempt Comment: - U team following daily, Pt now on close monitoring with staff - With bipolar disorder - Continue sertraline, duloxetine discontinued, quietapine started - per pt he wants dose reduced to 25 mg - per psych ok to reduce for pt preference and concern - No recommendation from inpatient psych hospitalization at this time (2) Osteomyelitis Comment: - From decubitus ulcer - wound appears to be healing - appreciate wound nurse recommendations. 2 unstageable pressure ulcers; R ischium measures 2.7x2.2x0.1 , wound base yellow adherent slough with soft dark eschar in the center with minimal serous drainage. R lower back 1.3x1.5x0.1 with adherent yellow base, soft dark eschar in the center and no drainage. Now on [place] bed with pressure relief mattress. Continue applying Santyl to wound bases daily and cover with gauze. - Continue IV vancomycin per routine, pharmacy to dose based on troughs. - Patient recommended to have 6 weeks of vancomycin, started on 03/01/[address] De Leon, [facility] ID, for MRSA UTI, bacteremia, and osteomyelitis with abscess. - Patient will need inpatient ID and ortho follow up if not able to be discharged in a reasonable time frame to follow up at [facility]. (3) Protein-calorie malnutrition, severe Comment: - Prealbumin 12 - BMI 17 - Pt reports 20% weight loss - RD following (4) Syncope Comment: - No further episodes, patient noted to have multiple similar episodes at [facility] ultimately thought to be pseudoseizures or conversion disorder. - No arrhythmia noted on telemetry - ok to DC tele - EEG normal (5) Hyperlipidemia Comment: - Continue atorvastatin. (6) Hypertension Comment: - stable - Continue lisinopril, increase metoprolol back to home dose (7) Paraplegia Comment: - Hx of CVA with SYSTEMS SUPPORT ENGINEER shunt. - Patient has suprapubic catheter for hx of urinary retention, last changed 03/01. - Supportive care. (8) UTI (urinary tract infection) Comment: - Stop keflex, urine cultures with brittany, suspect colonization given chronic suprapubic catheters. (9) Full code status Comment: (10) DVT prophylaxis Comment: - Heparin SQ. Status and Disposition: Inpatient. Patient from [facility] but is adamant about not returning there. wastewater plant operator and social workers following.
[2018-04-04] MEDS: tiZANidine TAB* 2 MG PO PRN (10:05)
[2018-04-04] MEDS ORDERED: Vancomycin Trough Check NOTE FOLLOW UP ONE (11:30)
--- NOTE | 2018-04-04 13:16 | CONSULT ---
Identification - Patient Identification Reason for Psychiatric Consultation: Suicidal Ideation -: Patient is a 52 year old, M admitted on 03/29/18. - MHU Identification Employment Status: Disabled Hx Psychiatric Hospitalization: Yes History - Objective HPI: Gabriel continues to deny SI but was uncooperative this AM with routine care and declined his AM medications. He is overtalkative but able to make his needs known. Ironically, he complains that he cannot find an accepting care home facility because he has the label of "suicidal" but essentially did this to himself by being manipulative and making suicidal threats as a way of leaving [facility]. staff continues to try to find him placement. He talks at length about buddhism and other irrelevant topics. Exam Appearance: Thin Framed Hygiene: Mal-odorous Grooming: Fairly Well Kept Psychomotor Activities: Normal Exhibits Abnormal Movement: No Attitude and Relatedness: Cooperative Eye Contact: Fair - Speech Quality: Pressured Latencies: Short Quantity: Copious Patient's Decription of Mood: "Okay" Observed Affect: Expansive Affect Consistent with: Euphoria Patient's Thought Process: Tangential Thought Content: No Passive Wish, No Suicidal Planning, No Homicidal Ideation, No Paranoid Ideation Experiencing Hallucinations: No, Sensorium is Clear Type of Hallucinations: Visual: No, Auditory: No, Command: No Level of Consciousness: Alert Orientation: Yes Intact, Yes Orientated to Time, Yes Orientated to Place, Yes Orientated to Person Impulse Control: Poor Insight and Judgement: Impaired Impression - Impression Clinical Impression: 52 y.o. , white male with paraplegia, arrives on 9.41 from [facility] following a suicidal gesture in which he tied a sheet around his neck and motioned to hang himself. Inpatient DSM-V Dx: F31.9 Merits Inpatient Hospitalization: No Plan - Treatment Plan Treatment Plan: The patient is no longer endorsing SI and remains off 1:1. He is hypomanic and we have decreased sertraline and will now discontinue it. Duloxetine has been discontinued and we started a trial of quetiapine 25mg PO qhs, although adherence has been an issue. He needs placement at this time and I don't think further hospitalization is warranted, but he will clearly act out of [facility] is his destination after discharge. Psychiatry will continue to follow daily. Continued Medication Management: Different Medication Medications: Current Medications Acetaminophen (Tylenol Tab*) 650 mg PO Q4H PRN PRN Reason: FEVER/PAIN Last Admin: 04/01/18 05:49 Dose: 650 mg Al Hydrox/Mg Hydrox/Simethicone (Maalox Plus*) 30 ml PO Q6H PRN PRN Reason: INDIGESTION Albuterol (Ventolin 2.5 Mg/3 Ml Neb.Dayami*) 2.5 mg INH [id number] AWAKE PRN PRN Reason: sob/wheezing Ascorbic Acid (Vitamin C Tab*) 1,000 mg PO DAILY [facility] Last Admin: 04/04/18 09:36 Dose: 1,000 mg Atorvastatin Calcium (Lipitor*) 10 mg PO 2100 [facility] Last Admin: 04/04/18 00:44 Dose: Not Given Capsaicin (Zostrix 0.025% Cream*) 1 applic TOPICAL BID PRN PRN Reason: pain Last Admin: 04/04/18 09:43 Dose: 1 applic Cholecalciferol (Vitamin D Tab*) 1,000 units PO DAILY [facility] Last Admin: 04/04/18 09:36 Dose: 1,000 units Collagenase (Santyl 250 Mg/Gm Oint*) 1 applic TOPICAL DAILY [facility] Last Admin: 04/04/18 09:43 Dose: 1 applic Diphenhydramine HCl (Benadryl Po*) 25 mg PO Q6H PRN PRN Reason: ITCHING Last Admin: 04/02/18 04:05 Dose: 25 mg Famotidine (Pepcid Tab*) 20 mg PO BID PRN PRN Reason: HEARTBURN Gabapentin (Neurontin Cap(*)) 100 mg PO TID [facility] Last Admin: 04/04/18 10:17 Dose: Not Given Heparin Sodium (Porcine) (Heparin Flush Picc/Ml/Cvc(*)) 1 ml FLUSH 0600,1800 [facility]; Protocol Last Admin: 04/04/18 05:27 Dose: Not Given Heparin Sodium (Porcine) (Heparin Vial(*)) 5,000 units SUBCUT Q8HR [facility] Last Admin: 04/04/18 05:43 Dose: 5,000 units Vancomycin HCl 750 mg/ Sodium (Chloride) 250 mls @ 166.667 mls/hr IVPB 1000, 2200 [facility] Last Admin: 04/04/18 12:41 Dose: 166.667 mls/hr Magnesium Hydroxide (Milk Of Magnesia Liq*) 30 ml PO Q4H PRN PRN Reason: CONSTIPATION Melatonin (Melatonin) 3 mg PO BEDTIME PRN; Protocol PRN Reason: SLEEP Metoprolol Succinate (Toprol Xl Tab*) 50 mg PO DAILY [facility] Last Admin: 04/04/18 09:36 Dose: 50 mg Morphine Sulfate (Morphine Oral.Soln 10 Mg*) 5 mg PO Q8H PRN PRN Reason: PAIN Last Admin: 04/04/18 11:25 Dose: 5 mg Ondansetron HCl (Zofran Inj*) 4 mg IV Q4H PRN PRN Reason: NAUSEA/VOMITING Pharmacy Consult (Vancomycin Per Pharmacy*) 1 note FOLLOW UP .VANC PER PHARMACY [facility] Quetiapine Fumarate (Seroquel Tab*) 25 mg PO BEDTIME [facility] Last Admin: 04/04/18 00:44 Dose: Not Given Sertraline HCl (Zoloft*) 25 mg PO DAILY [facility] Last Admin: 04/04/18 09:36 Dose: 25 mg Tizanidine HCl (Zanaflex Tab*) 4 mg PO QID PRN PRN Reason: SPASMS Last Admin: 04/02/18 13:07 Dose: 4 mg - Discharge Plan Discharge Plan: Outpatient Follow Up
[2018-04-04] MEDS: Polyethylene Glycol 3350* 17 GM PACKET PO PRN (21:54)
[2018-04-04] MEDS: Docusate CAP* 100 MG PO PRN (21:54)
[2018-04-05] MEDS: Vancomycin(*) 750 MG in NS 0.9% 250 ML* 250 ML IVPB SCH ×2 (00:42→13:06)
[2018-04-05] MEDS: Morphine ORAL.SOLN 10 mg* 2 MG/ML UDC 5 ml PO PRN ×2 (06:28→21:48)
[2018-04-05] MEDS: Heparin VIAL(*) 5000 UNITS/ML VIAL (FIVE THOUSAND) SUBCUT SCH ×3 (06:29→21:32)
[2018-04-05 06:52] LABS: ABS Basophils 0 10^3/ul (0-0.2); ABS Eosinophils 0.5 10^3/ul (0-0.6); ABS Lymphocytes 1.8 10^3/ul (1.0-4.8); ABS Monocytes 0.7 10^3/ul (0-0.8); ABS Neutrophils 5.4 10^3/ul (1.5-7.7); ABS Nucleated RBC 0 10^3/ul; Eosinophil % 6.3 % (0-6); Hematocrit 28 % (42-52); Hemoglobin 9.5 g/dl (14.0-18.0); Lymphocyte % 21.7 % (25-47); Mean Corpuscular HGB Conc 34 g/dl (31-36); Mean Corpuscular Hemoglobin 29 pg (27-31); Mean Corpuscular Volume 86 fL (80-94); Mean Platelet Volume 7.2 um3 (7.4-10.4); Nucleated Red Blood Cells % 0; Platelet Count 409 10^3/ul (150-450); Red Blood Count 3.27 10^6/ul (4.00-5.40); Red Cell Distribution Width 18 % (10.5-15); White Blood Count 8.4 10^3/ul (3.5-10.8)
[2018-04-05 07:09] LABS: EGFR Non-African American 124.6 (>60)
[2018-04-05] MEDS: Ascorbic Acid TAB* 500 MG PO SCH (11:10)
[2018-04-05] MEDS: Cholecalciferol TAB* 1000 UNITS PO SCH (11:11)
[2018-04-05] MEDS: Gabapentin CAP(*) 100 MG PO SCH ×3 (11:11→21:29)
--- NOTE | 2018-04-05 11:13 | PN ---
Subjective Date of Service: 04/05/18 Interval History: patient reports his pain is controlled today. He is upset that no facility wants to take him and still is refusing to be transferred to [facility]. He denies suicidal ideation but then states "if you send me to [facility] I might as well kill myself". He then reports the last 10 years has been very difficult for him and he acknowledges he is "sometimes I am out of line with my behavior" . Today he states he is happy he is not being transferred and hopes that he is placed in [facility] to be closer to family. He denies any fever/chills. No SOB/CP. No abdominal pain/N/V Objective Active Medications: Acetaminophen (Tylenol Tab*) 650 mg PO Q4H PRN PRN Reason: FEVER/PAIN Last Admin: 04/01/18 05:49 Dose: 650 mg Al Hydrox/Mg Hydrox/Simethicone (Maalox Plus*) 30 ml PO Q6H PRN PRN Reason: INDIGESTION Albuterol (Ventolin 2.5 Mg/3 Ml Neb.Dayami*) 2.5 mg INH [id number] AWAKE PRN PRN Reason: sob/wheezing Ascorbic Acid (Vitamin C Tab*) 1,000 mg PO DAILY [facility] Last Admin: 04/04/18 09:36 Dose: 1,000 mg Atorvastatin Calcium (Lipitor*) 10 mg PO 2100 [facility] Last Admin: 04/04/18 21:19 Dose: Not Given Capsaicin (Zostrix 0.025% Cream*) 1 applic TOPICAL BID PRN PRN Reason: pain Last Admin: 04/04/18 21:47 Dose: 1 applic Cholecalciferol (Vitamin D Tab*) 1,000 units PO DAILY [facility] Last Admin: 04/04/18 09:36 Dose: 1,000 units Collagenase (Santyl 250 Mg/Gm Oint*) 1 applic TOPICAL DAILY [facility] Last Admin: 04/04/18 09:43 Dose: 1 applic Diphenhydramine HCl (Benadryl Po*) 25 mg PO Q6H PRN PRN Reason: ITCHING Last Admin: 04/02/18 04:05 Dose: 25 mg Docusate Sodium (Colace Cap*) 100 mg PO BID PRN PRN Reason: CONSTIPATION Last Admin: 08/30/18 21:54 Dose: 100 mg Famotidine (Pepcid Tab*) 20 mg PO BID PRN PRN Reason: HEARTBURN Gabapentin (Neurontin Cap(*)) 100 mg PO TID [facility] Last Admin: 04/04/18 21:19 Dose: Not Given Heparin Sodium (Porcine) (Heparin Flush Picc/Ml/Cvc(*)) 1 ml FLUSH 0600,1800 [facility]; Protocol Last Admin: 04/05/18 06:31 Dose: 1 ml Heparin Sodium (Porcine) (Heparin Vial(*)) 5,000 units SUBCUT Q8HR [facility] Last Admin: 04/05/18 06:29 Dose: 5,000 units Vancomycin HCl 750 mg/ Sodium (Chloride) 250 mls @ 166.667 mls/hr IVPB 0000, 1200 [facility] Last Admin: 04/05/18 00:42 Dose: 166.667 mls/hr Magnesium Hydroxide (Milk Of Magnesia Liq*) 30 ml PO Q4H PRN PRN Reason: CONSTIPATION Melatonin (Melatonin) 3 mg PO BEDTIME PRN; Protocol PRN Reason: SLEEP Metoprolol Succinate (Toprol Xl Tab*) 50 mg PO DAILY [facility] Last Admin: 04/04/18 09:36 Dose: 50 mg Morphine Sulfate (Morphine Oral.Soln 10 Mg*) 5 mg PO Q8H PRN PRN Reason: PAIN Last Admin: 04/05/18 06:28 Dose: 5 mg Ondansetron HCl (Zofran Inj*) 4 mg IV Q4H PRN PRN Reason: NAUSEA/VOMITING Pharmacy Consult (Vancomycin Per Pharmacy*) 1 note FOLLOW UP .VANC PER PHARMACY [facility] Polyethylene Glycol/Electrolytes (Miralax*) 17 gm PO DAILY PRN PRN Reason: CONSTIPATION Last Admin: 04/04/18 21:54 Dose: 17 gm Quetiapine Fumarate (Seroquel Tab*) 25 mg PO BEDTIME [facility] Last Admin: 04/04/18 21:20 Dose: Not Given Tizanidine HCl (Zanaflex Tab*) 4 mg PO QID PRN PRN Reason: SPASMS Last Admin: 04/04/18 10:05 Dose: 4 mg Vital Signs - 8 hr 04/05/18 04/05/18 06:28 07:19 Temperature 97.4 F Pulse Rate 103 Respiratory 18 18 Rate Blood Pressure 111/60 (mmHg) O2 Sat by Pulse 100 Oximetry Oxygen Devices in Use Now: None Appearance: thin 52 yo chronically ill male A+Ox3 in NAD Eyes: No Scleral Icterus, PERRLA Ears/Nose/Mouth/Throat: Mucous Membranes Moist Neck: NL Appearance and Movements; NL JVP Respiratory: Symmetrical Chest Expansion and Respiratory Effort, Clear to Auscultation Cardiovascular: NL Sounds; No Murmurs; No JVD, RRR, No Edema Abdominal: NL Sounds; No Tenderness; No Distention, - - suprapubic catheter intact draining clear yellow urine Skin: - - buttock pressure unstageable ulcers which have CD+I dressings no drainage noted Neurological: Alert and Oriented x 3, NL Muscle Strength and Tone Lines/Tubes/Other Access: Clean, Dry and Intact Peripheral IV Nutrition: Taking PO's - Nutrition: Malnutrition Diagnosis/Plan Malnutrition Assessment by Registered Dietitian: Malnutrition Assessment Clinical Characteristics Acute,Severe Malnutrition Assessment: - Moderate temporal muscle wasting and muscle Criteria wasting of upper extrmities - Underweight: BMI 17.0 - Pt report of 20% wt loss (severe) Malnutrition Assessment: - Will send whole milk daily at B, L, D (170 Interventions kcals, 8 grams protein per serving) - Will send double protein portions at B, L, D Malnutrition Assessment: Goals 1. Intake will promote weight repletion w/o additional loss of lean body mass - Goal: > 75% intake of meals 2. Intake will promote wound healing w/o additional pressure related skin breakdown Result Diagrams: 04/05/18 06:40 04/05/18 06:40 Microbiology and Other Data: Microbiology 03/29/18 22:47 Nasal Screen MRSA (PCR) - Final Nasal Mrsa Detected Assess/Plan/Problems-Billing Assessment: Mr. 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 - Patient Problems (1) Suicide attempt Comment: - BHU team following daily, Pt on close monitoring with staff - With bipolar disorder - Quietapine started - per pt he wants dose reduced to 25 mg - per psych ok to reduce for pt preference and concern - No recommendation from inpatient psych hospitalization at this time (2) Osteomyelitis Comment: - From decubitus ulcer - wound appears to be healing and are closed - appreciate wound nurse recommendations. 2 unstageable pressure ulcers; R ischium measures 2.7x2.2x0.1, wound base yellow adherent slough with soft dark eschar in the center with minimal serous drainage. R lower back 1.3x1.5x0.1 with adherent yellow base, soft dark eschar in the center and no drainage. Now on Mukesh bed with pressure relief mattress. Continue applying Santyl to wound bases daily and cover with gauze. - Continue IV vancomycin per routine, pharmacy to dose based on troughs. - Patient recommended to have 6 weeks of vancomycin, started on 03/01/[address] De Leon, [facility] ID, for MRSA UTI, bacteremia, and osteomyelitis with abscess. - Patient will need inpatient ID and ortho follow up if not able to be discharged in a reasonable time frame to follow up at [facility]. (3) Tachycardia Comment: - sinus tach - give 1 liter bolus now and continue to monitor - pt denies SOB/CP. If fluid bolus does not affect HR will obtain CTA as the patient is high risk. (4) Protein-calorie malnutrition, severe Comment: - Prealbumin 12 - BMI 17 - Pt reports 20% weight loss - RD following (5) Syncope Comment: - No further episodes, patient noted to have multiple similar episodes at [facility] ultimately thought to be pseudoseizures or conversion disorder. - No arrhythmia noted on telemetry - ok to DC tele - EEG normal (6) Hyperlipidemia Comment: - Continue atorvastatin. (7) Hypertension Comment: - stable - Continue lisinopril, metoprolol (8) Paraplegia Comment: - Hx of CVA with MANAGER UT[employer] shunt. - Patient has suprapubic catheter for hx of urinary retention, last changed 03/01. - Supportive care. (9) UTI (urinary tract infection) Comment: - Stop keflex, urine cultures with brittany, suspect colonization given chronic suprapubic catheters. (10) Full code status Comment: (11) DVT prophylaxis Comment: - Heparin SQ. Status and Disposition: Inpatient. Patient from [facility] but is adamant about not returning there. facility manager histology and social workers following. [facility]
[2018-04-05] MEDS ORDERED: NS 0.9% 1000 ML* 1,000 ML IV ONE (12:53)
[2018-04-05] MEDS: Metoprolol Succinate XL TAB* 50 MG PO SCH (13:02)
[2018-04-05] MEDS: Collagenase 250 MG/GM OINT* 30 GM TOPICAL SCH (13:06)
--- NOTE | 2018-04-05 13:26 | CONSULT ---
Identification - Patient Identification Reason for Psychiatric Consultation: Suicidal Ideation -: Patient is a 52 year old, M admitted on 03/29/18. - MHU Identification Employment Status: Disabled Hx Psychiatric Hospitalization: Yes History - Objective HPI: Gabriel is seen for follow up and I am accompanied by unit GRAHAM Eng. GRAHAM informs Gabriel that his appeal for continued insurance coverage for this hospitalization has been denied and he is, as of today, converted to so-called "longterm care." Gabriel accepts this and is agreeable with Ms. Groverich's plan to cast a wider net by sending out his referral information to [facility] other than [facility]. "You gotta do what you gotta do." He continues to deny SI but indicates indirectly that he would likely act out with self-harm if discharged back to [facility]. "They had me sitting in my own urine there. I can't live like that." He continues to be non-adherent with scheduled meds, including gabapentin and quetiapine. He displays a good appetite and is glib and overtalkative on presentation. Exam Appearance: Thin Framed Hygiene: Mal-odorous Grooming: Fairly Well Kept Psychomotor Activities: Normal Exhibits Abnormal Movement: No Attitude and Relatedness: Cooperative Eye Contact: Fair - Speech Quality: Pressured Latencies: Short Quantity: Copious Patient's Decription of Mood: "Okay" Observed Affect: Expansive Affect Consistent with: Euphoria Patient's Thought Process: Tangential Thought Content: No Passive Wish, No Suicidal Planning, No Homicidal Ideation, No Paranoid Ideation Experiencing Hallucinations: No, Sensorium is Clear Type of Hallucinations: Visual: No, Auditory: No, Command: No Level of Consciousness: Alert Orientation: Yes Intact, Yes Orientated to Time, Yes Orientated to Place, Yes Orientated to Person Impulse Control: Poor Insight and Judgement: Impaired Impression - Impression Clinical Impression: 52 y.o. , white male with paraplegia, arrives on 9.41 from [facility] following a suicidal gesture in which he tied a sheet around his neck and motioned to hang himself. Inpatient DSM-V Dx: F31.9 Merits Inpatient Hospitalization: No Problem List - MHU Problems Type of Problem: Mood Status of Problem: Active Plan - Treatment Plan Treatment Plan: The patient displays symptoms of hypomania but so far refuses to adhere with recommended quetiapine therapy. His antidepressants have been weaned off and he denies SI at this time, but states he will try to end his life if referred back to [facility]. Would continue to hold off 1:1 as this seems to worsen his behavioral disinhibition. Attempts to find and alternative Sub-Acute Rehab have been unsuccessful. He cannot be transferred to the BSU d/t PICC line and suprapubic catheter and does not warrant inpatient psych at any rate due to the manipulative nature of his SI. 4-N SW team will continue to try to place the patient. Psychiatry will continue to follow. This clinician will return to service on Sunday, April 09 after the Holiday weekend. Continued Medication Management: Different Medication Medications: Current Medications Acetaminophen (Tylenol Tab*) 650 mg PO Q4H PRN PRN Reason: FEVER/PAIN Last Admin: 04/01/18 05:49 Dose: 650 mg Al Hydrox/Mg Hydrox/Simethicone (Maalox Plus*) 30 ml PO Q6H PRN PRN Reason: INDIGESTION Albuterol (Ventolin 2.5 Mg/3 Ml Neb.Dayami*) 2.5 mg INH [id number] AWAKE PRN PRN Reason: sob/wheezing Ascorbic Acid (Vitamin C Tab*) 1,000 mg PO DAILY [facility] Last Admin: 04/05/18 11:10 Dose: Not Given Atorvastatin Calcium (Lipitor*) 10 mg PO 2100 [facility] Last Admin: 04/04/18 21:19 Dose: Not Given Capsaicin (Zostrix 0.025% Cream*) 1 applic TOPICAL BID PRN PRN Reason: pain Last Admin: 04/04/18 21:47 Dose: 1 applic Cholecalciferol (Vitamin D Tab*) 1,000 units PO DAILY [facility] Last Admin: 04/05/18 11:11 Dose: Not Given Collagenase (Santyl 250 Mg/Gm Oint*) 1 applic TOPICAL DAILY [facility] Last Admin: 04/05/18 13:06 Dose: 1 applic Diphenhydramine HCl (Benadryl Po*) 25 mg PO Q6H PRN PRN Reason: ITCHING Last Admin: 04/02/18 04:05 Dose: 25 mg Docusate Sodium (Colace Cap*) 100 mg PO BID PRN PRN Reason: CONSTIPATION Last Admin: 04/04/18 21:54 Dose: 100 mg Famotidine (Pepcid Tab*) 20 mg PO BID PRN PRN Reason: HEARTBURN Gabapentin (Neurontin Cap(*)) 100 mg PO TID [facility] Last Admin: 04/05/18 11:11 Dose: Not Given Heparin Sodium (Porcine) (Heparin Flush Picc/Ml/Cvc(*)) 1 ml FLUSH 0600,1800 [facility]; Protocol Last Admin: 04/05/18 06:31 Dose: 1 ml Heparin Sodium (Porcine) (Heparin Vial(*)) 5,000 units SUBCUT Q8HR [facility] Last Admin: 04/05/18 06:29 Dose: 5,000 units Vancomycin HCl 750 mg/ Sodium (Chloride) 250 mls @ 166.667 mls/hr IVPB 0000, 1200 [facility] Last Admin: 04/05/18 13:06 Dose: 166.667 mls/hr Sodium Chloride (Ns 0.9% 1000 Ml*) 1,000 mls @ 1,000 mls/hr IV .PER RATE ONE Stop: 04/05/18 13:52 Last Admin: 04/05/18 13:06 Dose: 1,000 mls/hr Magnesium Hydroxide (Milk Of Magnnanda Liq*) 30 ml PO Q4H PRN PRN Reason: CONSTIPATION Melatonin (Melatonin) 3 mg PO BEDTIME PRN; Protocol PRN Reason: SLEEP Metoprolol Succinate (Toprol Xl Tab*) 50 mg PO DAILY [facility] Last Admin: 04/05/18 13:02 Dose: Not Given Morphine Sulfate (Morphine Oral.Soln 10 Mg*) 5 mg PO Q8H PRN PRN Reason: PAIN Last Admin: 04/05/18 06:28 Dose: 5 mg Ondansetron HCl (Zofran Inj*) 4 mg IV Q4H PRN PRN Reason: NAUSEA/VOMITING Pharmacy Consult (Vancomycin Per Pharmacy*) 1 note FOLLOW UP .VANC PER PHARMACY [facility] Pharmacy Profile Note (Vancomycin Trough Check) 1 note FOLLOW UP 1130 ONE Stop: 04/06/18 11:31 Polyethylene Glycol/Electrolytes (Miralax*) 17 gm PO DAILY PRN PRN Reason: CONSTIPATION Last Admin: 04/04/18 21:54 Dose: 17 gm Quetiapine Fumarate (Seroquel Tab*) 25 mg PO BEDTIME [facility] Last Admin: 04/04/18 21:20 Dose: Not Given Tizanidine HCl (Zanaflex Tab*) 4 mg PO QID PRN PRN Reason: SPASMS Last Admin: 04/04/18 10:05 Dose: 4 mg - Discharge Plan Discharge Plan: Outpatient Follow Up
[2018-04-05] MEDS: tiZANidine TAB* 2 MG PO PRN ×2 (13:42→21:28)
[2018-04-05] MEDS: Docusate CAP* 100 MG PO PRN (13:42)
[2018-04-05] MEDS: Polyethylene Glycol 3350* 17 GM PACKET PO PRN (13:42)
[2018-04-05] MEDS ORDERED: Iohexol 350* (CONTRAST) 500 ML MDV IV ONE (17:58)
--- NOTE | 2018-04-05 19:07 | RAD ---
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 All CT scans at this facility use at least one of these dose optimization techniques: automated exposure control; mA and/or kV adjustment per patient size (includes targeted exams where dose is matched to clinical indication); or iterative reconstruction. MIP reconstructed images were created and reviewed. Coronal and sagittal reformatted images were created and reviewed. CONTRAST: 60 mL of OMNI 350 administered intravenously. COMPARISON: OT - CXR PA CHEST 1 VW 03/29/2018 11:47 AM FINDINGS: Pulmonary arteries: No pulmonary embolus. No dissection or aneurysm in the chest. Aorta: Limited atherosclerosis. Mildly ectatic thoracic aorta. No thoracic aortic aneurysm. Lungs: No consolidation, effusion or edema. Pleural space: See above. Heart: Moderate coronary artery calcifications. No significant pericardial effusion. No evidence of RV dysfunction. Bones/joints: Anterior fusion lower cervical spine. Moderate skeletal degenerative change. Soft tissues: See above. Lymph nodes: Unremarkable. No enlarged lymph nodes. Gallbladder and bile ducts: Cholecystectomy. Stomach and bowel: Distended stomach. Other findings: No other acute disease seen. As above. IMPRESSION: 1. No pulmonary embolus. No dissection or aneurysm in the chest. 2. Moderate coronary artery calcifications. 3. No consolidation, effusion or edema. 4. Distended stomach. 5. No other acute disease seen. As above.
[2018-04-05] MEDS: Atorvastatin* 10 MG TAB PO SCH (21:29)
[2018-04-05] MEDS: Famotidine TAB* 20 MG PO PRN (21:29)
[2018-04-05] MEDS: QUEtiapine TAB* 25 MG PO SCH (21:30)
[2018-04-06] MEDS: Vancomycin(*) 750 MG in NS 0.9% 250 ML* 250 ML IVPB SCH ×2 (00:04→12:59)
[2018-04-06] MEDS: Morphine ORAL.SOLN 10 mg* 2 MG/ML UDC 5 ml PO PRN ×2 (05:24→22:14)
[2018-04-06] MEDS: Heparin VIAL(*) 5000 UNITS/ML VIAL (FIVE THOUSAND) SUBCUT SCH ×3 (05:26→22:35)
[2018-04-06] MEDS: Capsaicin 0.025% CREAM* 60 GM TOPICAL PRN ×3 (05:36→22:17)
[2018-04-06] MEDS: Metoprolol Succinate XL TAB* 50 MG PO SCH (08:09)
[2018-04-06] MEDS: Cholecalciferol TAB* 1000 UNITS PO SCH (08:10)
[2018-04-06] MEDS: Ascorbic Acid TAB* 500 MG PO SCH (08:10)
[2018-04-06] MEDS: Gabapentin CAP(*) 100 MG PO SCH ×3 (08:10→22:39)
[2018-04-06] MEDS: tiZANidine TAB* 2 MG PO PRN (08:37)
[2018-04-06] MEDS: Docusate CAP* 100 MG PO PRN (08:37)
[2018-04-06] MEDS: Collagenase 250 MG/GM OINT* 30 GM TOPICAL SCH (08:39)
[2018-04-06] MEDS ORDERED: Vancomycin Trough Check NOTE FOLLOW UP ONE (11:30)
[2018-04-06 12:09] LABS: EGFR Non-African American 126.7 (>60)
[2018-04-06 12:31] LABS: Vancomycin Trough 18.5 mcg/mL
[2018-04-06] MEDS: Famotidine TAB* 20 MG PO PRN (15:19)
[2018-04-06] MEDS: Atorvastatin* 10 MG TAB PO SCH (22:38)
[2018-04-06] MEDS: QUEtiapine TAB* 25 MG PO SCH (22:39)
[2018-04-07] MEDS: Vancomycin(*) 750 MG in NS 0.9% 250 ML* 250 ML IVPB SCH ×2 (00:11→12:59)
[2018-04-07] MEDS: Morphine ORAL.SOLN 10 mg* 2 MG/ML UDC 5 ml PO PRN (05:05)
[2018-04-07] MEDS: Heparin VIAL(*) 5000 UNITS/ML VIAL (FIVE THOUSAND) SUBCUT SCH ×3 (06:02→22:33)
[2018-04-07] MEDS: Metoprolol Succinate XL TAB* 50 MG PO SCH (09:56)
[2018-04-07] MEDS: Ascorbic Acid TAB* 500 MG PO SCH (09:56)
[2018-04-07] MEDS: Gabapentin CAP(*) 100 MG PO SCH ×3 (09:58→22:14)
[2018-04-07] MEDS: Cholecalciferol TAB* 1000 UNITS PO SCH (09:59)
[2018-04-07] MEDS: Docusate CAP* 100 MG PO PRN (10:09)
[2018-04-07] MEDS: tiZANidine TAB* 2 MG PO PRN ×2 (10:10→22:32)
--- NOTE | 2018-04-07 12:23 | ECHO ---
Patient: BAYLEE BROOKS [facility] Rec#: [id number] : 1965 Date: 04/07/2018 Age: 52y Height: 187.96 cm / 74.0 in Weight: 56.25 kg / 124.0 lbs Sex: M BSA: 1.77 Room#: 404 Admit Date#: 03/29/2018 Type: Inpatient Referring: Mayda Street MD Reading: Sergio Choudhury DO Choir Leader: [facility] Tran[facility]horacic Echocardiogram Indication: Valvular disease BP: 115/56 HR: 98 Rhythm: NSR with PACs Findings History: CVA, paraplegic, HTN, DM, former smoker, thoracic ascending aortic aneurysm. Technical Comments: The study quality is fair. Completed at 0930. Left Ventricle: The left ventricular chamber size is normal. Mild to moderate concentric left ventricular hypertrophy is observed. Global left ventricular wall motion and contractility are within normal limits. There is normal left ventricular systolic function. The estimated ejection fraction is 55-60%. Abnormal left ventricular diastolic function is observed. Left Atrium: The left atrium is slightly dilated. Right Ventricle: The right ventricular chamber size and systolic function are within normal limits. Right Atrium: The right atrial cavity size is normal. Aortic Valve: The aortic valve is trileaflet. The aortic valve leaflets are mildly thickened. There is mild aortic regurgitation. There is no evidence of aortic stenosis. Mitral Valve: The mitral valve leaflets are mildly thickened. There is trace to mild mitral regurgitation. There is no evidence of mitral stenosis. Tricuspid Valve: The tricuspid valve leaflets are normal. There is trace to mild tricuspid regurgitation. No pulmonary hypertension is noted. There is no tricuspid stenosis. Pulmonic Valve: The pulmonic valve appears normal. There is a trace pulmonic regurgitation. There is no pulmonic stenosis. Pericardium: There is no significant pericardial effusion. Aorta: There is mild dilatation of the ascending aorta.There is mild-moderate dilation of the aortic root. There is no dilatation of the aortic arch. Pulmonary Artery: The main pulmonary artery is not well visualized. Venous: The inferior vena cava appears normal in size. There is a greater than 50% respiratory change in the inferior vena cava dimension. Conclusions The left ventricular chamber size is normal. Mild to moderate concentric left ventricular hypertrophy is observed. Global left ventricular wall motion and contractility are within normal limits. There is normal left ventricular systolic function. The estimated ejection fraction is 55-60%. The left atrium is slightly dilated. The right ventricular chamber size and systolic function are within normal limits. The aortic valve is trileaflet. There is mild aortic regurgitation. There is mild dilatation of the ascending aorta at 4 cm and mild-moderate dilation of the aortic root at 4.3 cm. None prior for comparison at time of interpretation Measurements Name Value Normal Range RVIDd (AP) 2D 3.2 cm (0.9 - 2.6) RVDdMajor (2D) 4 cm (2.2 - 4.4) RAd ISD 4CH 4.3 cm (3.4 - 4.9) RA (A4C)W 4 cm (2.9 - 4.6) IVSd (2D) 1.3 cm (0.6 - 1) LVPWd (2D) 1.4 cm (0.6 - 1) LVIDd (2D) 3.7 cm (3.6 - 5.4) LVIDs (2D) 2.7 cm - LV FS (2D) 27 % (25 - 45) Aortic Annulus 2.4 cm (1.4 - 2.6) Ao root diameter (2D) 4.3 cm (2.1 - 3.5) Ascending Ao 4 cm (2.1 - 3.4) Aortic arch 2.8 cm (1.8 - 3.4) LAd ISD 4CH 3.4 cm (2.9 - 5.3) LA ISD 4CH W 4.1 cm (2.5 - 4.5) Name Value Normal Range LA ESV SP 4CH (A/L) 45 ml - LA ESV SP 2CH (A/L) 53 ml - LA ESV BP (A/L) 58 ml - LA ESV BP (A/L) index 33 ml/m2 - LA ESV SP 4CH (MOD) 39 ml - LA ESV SP 2CH (MOD) 47 ml - Name Value Normal Range MV E-wave Vmax 0.49 m/sec - MV deceleration time 156.9 msec - MV A-wave Vmax 0.75 m/sec - MV E:A ratio 0.64 ratio - LV septal e' Vmax 0.05 m/sec - LV lateral e' Vmax 0.1 m/sec - LV E:e' septal ratio 9.8 ratio - LV E:e' lateral ratio 4.9 ratio - Name Value Normal Range AV Vmax 1.02 m/sec - AV VTI 17.15 cm - AV peak gradient 4.17 mmHg - AV mean gradient 2.04 mmHg - LVOT Vmax 0.9 m/sec - LVOT VTI 15.66 cm - LVOT peak gradient 3.24 mmHg - LVOT mean gradient 1.75 mmHg - ZULAY Vmax 0.7 m/sec - Name Value Normal Range TR Vmax 2.1 m/sec - TR peak gradient 18 mmHg - RAP 3 mmHg - RVSP 21 mmHg - IVC diameter 1.4 cm - Name Value Normal Range PV Vmax 0.9 m/sec - PV peak gradient 3.28 mmHg -
[2018-04-07] MEDS: Collagenase 250 MG/GM OINT* 30 GM TOPICAL SCH (12:58)
--- NOTE | 2018-04-07 15:36 | PN ---
Hospitalist Progress Note Date of Service: 04/07/18 ECHO 04/06/18 reviewed, no acute patho. Discussed suprapubic catheter exchange with Dr. Zhao, instructed for nursing staff to call office on Sunday and either he or Dr. Adair with change. This is non-emergent. communicated to ROLANDO Valdez.
[2018-04-07] MEDS: Atorvastatin* 10 MG TAB PO SCH (22:31)
[2018-04-07] MEDS: QUEtiapine TAB* 25 MG PO SCH (22:32)
[2018-04-08] MEDS: Vancomycin(*) 750 MG in NS 0.9% 250 ML* 250 ML IVPB SCH ×2 (00:33→12:41)
[2018-04-08] MEDS: Morphine ORAL.SOLN 10 mg* 2 MG/ML UDC 5 ml PO PRN (02:25)
[2018-04-08] MEDS: Capsaicin 0.025% CREAM* 60 GM TOPICAL PRN (04:48)
[2018-04-08] MEDS: Heparin VIAL(*) 5000 UNITS/ML VIAL (FIVE THOUSAND) SUBCUT SCH ×3 (05:53→21:30)
[2018-04-08 06:37] LABS: EGFR Non-African American 107.7 (>60)
[2018-04-08] MEDS: Ascorbic Acid TAB* 500 MG PO SCH (08:08)
[2018-04-08] MEDS: Cholecalciferol TAB* 1000 UNITS PO SCH (08:14)
[2018-04-08] MEDS: Gabapentin CAP(*) 100 MG PO SCH ×3 (08:14→21:30)
[2018-04-08] MEDS: Metoprolol Succinate XL TAB* 50 MG PO SCH (08:15)
[2018-04-08] MEDS: Collagenase 250 MG/GM OINT* 30 GM TOPICAL SCH (08:21)
[2018-04-08] MEDS ORDERED: Vancomycin Trough Check NOTE FOLLOW UP ONE (11:30)
--- NOTE | 2018-04-08 16:18 | CONSULT ---
Identification - Patient Identification Reason for Psychiatric Consultation: Suicidal Ideation -: Patient is a 52 year old, M admitted on 03/29/18. - MHU Identification Employment Status: Disabled Hx Psychiatric Hospitalization: No Arrived to Hospital Via: Ambulatory History - Objective HPI: Please refer to Dr. Romano's consult not for details. This is a follow up to see any change. Apparently no change as patient remains defient and refusing to take any psychiatric meds as in his opinion he doesn't need them. He complains about pretty much everything from his previous hospitalizations, surgeries, other treatments or skilled nursing placements including this hospitalization. He thinks he was and is being neglected, mistreated and so on. Continues to verbalize suicidal threats only if he was sent to [facility]. Otherwise denies intention to harm self. Also denies hallucinations, paranoia or HI. Extremely irritable at first and asked the RN in charge to leave the room but later calmed down. Exam Appearance: Thin Framed Hygiene: Mal-odorous Grooming: Fairly Well Kept Psychomotor Activities: Normal Exhibits Abnormal Movement: No Attitude and Relatedness: Cooperative Eye Contact: Fair - Speech Quality: Pressured Latencies: Short Quantity: Copious Patient's Decription of Mood: "Okay" Observed Affect: Expansive Affect Consistent with: Dysphoria Patient's Thought Process: Tangential, Over Inclusive Thought Content: No Passive Wish, No Suicidal Planning, No Homicidal Ideation, No Paranoid Ideation Experiencing Hallucinations: No, Sensorium is Clear Type of Hallucinations: Visual: No, Auditory: No, Command: No Level of Consciousness: Alert Orientation: Yes Intact, Yes Orientated to Time, Yes Orientated to Place, Yes Orientated to Person Impulse Control: Poor Insight and Judgement: Impaired Impression - Impression Clinical Impression: 52 y.o. , white male with paraplegia, arrives on 9.41 from [facility] following a suicidal gesture in which he tied a sheet around his neck and motioned to hang himself. He remains defient, irritable and irrational and refusing psychotropic meds despite the evidence hypomania and mood dysregulation. Inpatient DSM-V Dx: F31.9 Merits Inpatient Hospitalization: No Problem List - MHU Problems Type of Problem: Impulse Control Status of Problem: Active Type of Problem: Mood Status of Problem: Active Type of Problem: Medication Management Status of Problem: Active Plan - Treatment Plan Continued Medication Management: Consider Medication Medications: Current Medications Acetaminophen (Tylenol Tab*) 650 mg PO Q4H PRN PRN Reason: FEVER/PAIN Last Admin: 04/01/18 05:49 Dose: 650 mg Al Hydrox/Mg Hydrox/Simethicone (Maalox Plus*) 30 ml PO Q6H PRN PRN Reason: INDIGESTION Albuterol (Ventolin 2.5 Mg/3 Ml Neb.Dayami*) 2.5 mg INH [id number] AWAKE PRN PRN Reason: sob/wheezing Ascorbic Acid (Vitamin C Tab*) 1,000 mg PO DAILY [facility] Last Admin: 04/08/18 08:08 Dose: Not Given Atorvastatin Calcium (Lipitor*) 10 mg PO 2100 [facility] Last Admin: 04/07/18 22:31 Dose: 10 mg Capsaicin (Zostrix 0.025% Cream*) 1 applic TOPICAL BID PRN PRN Reason: pain Last Admin: 04/08/18 04:48 Dose: 1 applic Cholecalciferol (Vitamin D Tab*) 1,000 units PO DAILY [facility] Last Admin: 04/08/18 08:14 Dose: Not Given Collagenase (Santyl 250 Mg/Gm Oint*) 1 applic TOPICAL DAILY [facility] Last Admin: 04/08/18 08:21 Dose: 1 applic Diphenhydramine HCl (Benadryl Po*) 25 mg PO Q6H PRN PRN Reason: ITCHING Last Admin: 04/02/18 04:05 Dose: 25 mg Docusate Sodium (Colace Cap*) 100 mg PO BID PRN PRN Reason: CONSTIPATION Last Admin: 04/07/18 10:09 Dose: 100 mg Famotidine (Pepcid Tab*) 20 mg PO BID PRN PRN Reason: HEARTBURN Last Admin: 04/06/18 15:19 Dose: 20 mg Gabapentin (Neurontin Cap(*)) 100 mg PO TID [facility] Last Admin: 04/08/18 14:10 Dose: Not Given Heparin Sodium (Porcine) (Heparin Flush Picc/Ml/Cvc(*)) 1 ml FLUSH 0600,1800 [facility]; Protocol Last Admin: 04/08/18 05:52 Dose: 1 ml Heparin Sodium (Porcine) (Heparin Vial(*)) 5,000 units SUBCUT Q8HR [facility] Last Admin: 04/08/18 15:18 Dose: Not Given Vancomycin HCl 1,250 mg/ (Sodium Chloride) 250 mls @ 166.667 mls/hr IVPB Q24H [facility] Magnesium Hydroxide (Milk Of Magnnanda Liq*) 30 ml PO Q4H PRN PRN Reason: CONSTIPATION Melatonin (Melatonin) 3 mg PO BEDTIME PRN; Protocol PRN Reason: SLEEP Metoprolol Succinate (Toprol Xl Tab*) 50 mg PO DAILY [facility] Last Admin: 04/08/18 08:15 Dose: Not Given Morphine Sulfate (Morphine Oral.Soln 10 Mg*) 5 mg PO Q6H PRN PRN Reason: PAIN Last Admin: 04/08/18 02:25 Dose: 5 mg Ondansetron HCl (Zofran Inj*) 4 mg IV Q4H PRN PRN Reason: NAUSEA/VOMITING Pharmacy Consult (Vancomycin Per Pharmacy*) 1 note FOLLOW UP .VANC PER PHARMACY [facility] Pharmacy Profile Note (Vancomycin Trough Check) 1 note FOLLOW UP ONCE ONE Stop: 04/11/18 17:31 Polyethylene Glycol/Electrolytes (Miralax*) 17 gm PO DAILY PRN PRN Reason: CONSTIPATION Last Admin: 04/05/18 13:42 Dose: 17 gm Quetiapine Fumarate (Seroquel Tab*) 25 mg PO BEDTIME [facility] Last Admin: 04/07/18 22:32 Dose: 25 mg Tizanidine HCl (Zanaflex Tab*) 4 mg PO QID PRN PRN Reason: SPASMS Last Admin: 04/07/18 22:32 Dose: 4 mg - Discharge Plan Discharge Plan: Consider Longer Term Tx - Rehab Intermediate
--- NOTE | 2018-04-08 18:08 | PN ---
Subjective Date of Service: 04/08/18 Interval History: Patient remains on intermediate care, as he has no acute care needs. Next Hospitalist evaluation should be on 04/12/18 for weekly visit. Per RN, last 48 hours patient has been refusing all PO meds and today has refused his vancomycin. Per the record, vanco was initiated on 03/01/18 and should conclude on 04/12/2018 to complete 6 week course. Will discuss with case management tomorrow if patient has a bed offer at a rehab facility. If patient continues to refuse IV antibiotics, he will be discharged back to home, as he will have no rehab needs either. Will discuss with patient and with case management in the morning. Noted follow up from psych today, recommendation is medication only (which patient is refusing), not BHU admission, as patient is not currently suicidal. At this point patient has no skilled needs unless he wishes to go to a correction for permanent placement due to his paraplegia. Objective Active Medications: Acetaminophen (Tylenol Tab*) 650 mg PO Q4H PRN PRN Reason: FEVER/PAIN Last Admin: 04/01/18 05:49 Dose: 650 mg Al Hydrox/Mg Hydrox/Simethicone (Maalox Plus*) 30 ml PO Q6H PRN PRN Reason: INDIGESTION Albuterol (Ventolin 2.5 Mg/3 Ml Neb.Dayami*) 2.5 mg INH [id number] AWAKE PRN PRN Reason: sob/wheezing Ascorbic Acid (Vitamin C Tab*) 1,000 mg PO DAILY [facility] Last Admin: 04/08/18 08:08 Dose: Not Given Atorvastatin Calcium (Lipitor*) 10 mg PO 2100 [facility] Last Admin: 04/07/18 22:31 Dose: 10 mg Capsaicin (Zostrix 0.025% Cream*) 1 applic TOPICAL BID PRN PRN Reason: pain Last Admin: 04/08/18 04:48 Dose: 1 applic Cholecalciferol (Vitamin D Tab*) 1,000 units PO DAILY [facility] Last Admin: 04/08/18 08:14 Dose: Not Given Collagenase (Santyl 250 Mg/Gm Oint*) 1 applic TOPICAL DAILY [facility] Last Admin: 04/08/18 08:21 Dose: 1 applic Diphenhydramine HCl (Benadryl Po*) 25 mg PO Q6H PRN PRN Reason: ITCHING Last Admin: 04/02/18 04:05 Dose: 25 mg Docusate Sodium (Colace Cap*) 100 mg PO BID PRN PRN Reason: CONSTIPATION Last Admin: 04/07/18 10:09 Dose: 100 mg Famotidine (Pepcid Tab*) 20 mg PO BID PRN PRN Reason: HEARTBURN Last Admin: 04/06/18 15:19 Dose: 20 mg Gabapentin (Neurontin Cap(*)) 100 mg PO TID [facility] Last Admin: 04/08/18 14:10 Dose: Not Given Heparin Sodium (Porcine) (Heparin Flush Picc/Ml/Cvc(*)) 1 ml FLUSH 0600,1800 [facility]; Protocol Last Admin: 04/08/18 05:52 Dose: 1 ml Heparin Sodium (Porcine) (Heparin Vial(*)) 5,000 units SUBCUT Q8HR [facility] Last Admin: 04/08/18 15:18 Dose: Not Given Vancomycin HCl 1,250 mg/ (Sodium Chloride) 250 mls @ 166.667 mls/hr IVPB Q24H [facility] Magnesium Hydroxide (Milk Of Magnesia Liq*) 30 ml PO Q4H PRN PRN Reason: CONSTIPATION Melatonin (Melatonin) 3 mg PO BEDTIME PRN; Protocol PRN Reason: SLEEP Metoprolol Succinate (Toprol Xl Tab*) 50 mg PO DAILY [facility] Last Admin: 04/08/18 08:15 Dose: Not Given Morphine Sulfate (Morphine Oral.Soln 10 Mg*) 5 mg PO Q6H PRN PRN Reason: PAIN Last Admin: 04/08/18 02:25 Dose: 5 mg Ondansetron HCl (Zofran Inj*) 4 mg IV Q4H PRN PRN Reason: NAUSEA/VOMITING Pharmacy Consult (Vancomycin Per Pharmacy*) 1 note FOLLOW UP .VANC PER PHARMACY [facility] Pharmacy Profile Note (Vancomycin Trough Check) 1 note FOLLOW UP ONCE ONE Stop: 04/11/18 17:31 Polyethylene Glycol/Electrolytes (Miralax*) 17 gm PO DAILY PRN PRN Reason: CONSTIPATION Last Admin: 04/05/18 13:42 Dose: 17 gm Quetiapine Fumarate (Seroquel Tab*) 25 mg PO BEDTIME [facility] Last Admin: 04/07/18 22:32 Dose: 25 mg Tizanidine HCl (Zanaflex Tab*) 4 mg PO QID PRN PRN Reason: SPASMS Last Admin: 04/07/18 22:32 Dose: 4 mg Oxygen Devices in Use Now: None - Nutrition: Malnutrition Diagnosis/Plan Malnutrition Assessment by Registered Dietitian: Malnutrition Assessment Clinical Characteristics Acute,Severe Malnutrition Assessment: - Moderate temporal muscle wasting and muscle Criteria wasting of upper extrmities - Underweight: BMI 17.0 - Pt report of 20% wt loss (severe) Malnutrition Assessment: - Will send whole milk daily at B, L, D (170 Interventions kcals, 8 grams protein per serving) - Will send double protein portions at B, L, D Malnutrition Assessment: Goals 1. Intake will promote weight repletion w/o additional loss of lean body mass - Goal: > 75% intake of meals 2. Intake will promote wound healing w/o additional pressure related skin breakdown Result Diagrams: 04/05/18 06:40 04/08/18 06:05 Microbiology and Other Data: Microbiology 03/29/18 22:47 Nasal Screen MRSA (PCR) - Final Nasal Mrsa Detected Assess/Plan/Problems-Billing Assessment: Mr. 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 Status and Disposition: Inpatient. Patient from [facility] but is adamant about not returning there. oracle adf developer and social workers following. [facility]
[2018-04-08] MEDS: Vancomycin(*) 1,250 MG in NS 0.9% 250 ML* 250 ML IVPB SCH (18:16)
[2018-04-08] MEDS: Atorvastatin* 10 MG TAB PO SCH (21:30)
[2018-04-08] MEDS: QUEtiapine TAB* 25 MG PO SCH (21:30)
[2018-04-09] MEDS: Heparin VIAL(*) 5000 UNITS/ML VIAL (FIVE THOUSAND) SUBCUT SCH ×3 (06:26→20:31)
[2018-04-09] MEDS: Cholecalciferol TAB* 1000 UNITS PO SCH (10:05)
[2018-04-09] MEDS: Gabapentin CAP(*) 100 MG PO SCH ×3 (10:05→20:33)
[2018-04-09] MEDS: Metoprolol Succinate XL TAB* 50 MG PO SCH (10:05)
[2018-04-09] MEDS: Ascorbic Acid TAB* 500 MG PO SCH (10:05)
[2018-04-09] MEDS: Collagenase 250 MG/GM OINT* 30 GM TOPICAL SCH (10:05)
--- NOTE | 2018-04-09 13:15 | CONSULT ---
Identification - Patient Identification Reason for Psychiatric Consultation: Suicidal Ideation -: Patient is a 52 year old, M admitted on 03/29/18. - MHU Identification Employment Status: Disabled Hx Psychiatric Hospitalization: Yes History - Objective HPI: Gabriel is seen for follow up. Prior to meeting with him, his nurse reports that he has been refusing meds and physical interventions for essentially the past 48 hours and making suicidal statements to the effect that the hospital should discharge him to a wheelchair so that he could roll down hill into the capps. 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 He is fixated on two issues related to his care, the first being pain management and the second being routine replacement of his suprapubic catheter. "This should have been replaced five days ago by a Urologist; what, do I have to rip it out and replace it myself?" My understanding is that he has been refusing pain medicines as well as food. With me, he complains of terrible neuropathic pain in his lower extremities, and asks repeatedly for IV or IM morphine. For collateral information, I spoke with his father, Yohannes Barth ), who reports that Gabriel does not any longer have home health nursing or aide services at his apartment in [place]. When asked about going home, Gabriel is not able to demonstrate an understanding of the risks of that disposition. He is similarly not able to describe the risks of refusing further medical treatment and nutrition at the hospital. Exam Appearance: Thin Framed Hygiene: Mal-odorous Grooming: Fairly Well Kept Psychomotor Activities: Normal Exhibits Abnormal Movement: No Attitude and Relatedness: Hostile Eye Contact: Fair - Speech Quality: Pressured Latencies: Short Quantity: Copious Patient's Decription of Mood: "Irritable" Observed Affect: Expansive Affect Consistent with: Dysphoria Patient's Thought Process: Tangential, Over Inclusive Thought Content: Yes Passive Wish, No Suicidal Planning, No Homicidal Ideation, No Paranoid Ideation Experiencing Hallucinations: No, Sensorium is Clear Type of Hallucinations: Visual: No, Auditory: No, Command: No Level of Consciousness: Alert Orientation: Yes Intact, Yes Orientated to Time, Yes Orientated to Place, Yes Orientated to Person Impulse Control: Poor Insight and Judgement: Impaired Impression - Impression Clinical Impression: 52 y.o. , white male with paraplegia, arrives on 9.41 from [facility] following a suicidal gesture in which he tied a sheet around his neck and motioned to hang himself. He remains defient, irritable and irrational and refusing psychotropic meds despite the evidence hypomania and mood dysregulation. Inpatient DSM-V Dx: F31.9 Merits Inpatient Hospitalization: No Problem List - MHU Problems Type of Problem: Mood Status of Problem: Active Plan - Treatment Plan Treatment Plan: The patient displays symptoms of irritability and hypomania and is in obvious pain and emotional distress. He is making suicidal statements again and I have ordered resumption of 1:1 observations. He is refusing food and medications, including quetiapine, but doesn't seem able to state the risks for doing so. I do not believe he has capacity to refuse care. Will discontinue quetiapine and start a trial of haldol 5mg BID. The patient will be offered oral haldol and, if refused, staff is to administer IM over his objection. I do not believe he would be a candidate for inpatient psychiatric care, as he would not likely benefit from the milieu setting and BSU placement would build further barriers to successful placement back in the community. Psychiatry will continue to follow. Continued Medication Management: Different Medication Medications: Current Medications Acetaminophen (Tylenol Tab*) 650 mg PO Q4H PRN PRN Reason: FEVER/PAIN Last Admin: 04/01/18 05:49 Dose: 650 mg Al Hydrox/Mg Hydrox/Simethicone (Maalox Plus*) 30 ml PO Q6H PRN PRN Reason: INDIGESTION Albuterol (Ventolin 2.5 Mg/3 Ml Neb.Dayami*) 2.5 mg INH [id number] AWAKE PRN PRN Reason: sob/wheezing Ascorbic Acid (Vitamin C Tab*) 1,000 mg PO DAILY [facility] Last Admin: 04/09/18 10:05 Dose: Not Given Atorvastatin Calcium (Lipitor*) 10 mg PO 2100 [facility] Last Admin: 04/08/18 21:30 Dose: Not Given Capsaicin (Zostrix 0.025% Cream*) 1 applic TOPICAL BID PRN PRN Reason: pain Last Admin: 04/08/18 04:48 Dose: 1 applic Cholecalciferol (Vitamin D Tab*) 1,000 units PO DAILY [facility] Last Admin: 04/09/18 10:05 Dose: Not Given Collagenase (Santyl 250 Mg/Gm Oint*) 1 applic TOPICAL DAILY [facility] Last Admin: 04/09/18 10:05 Dose: Not Given Diphenhydramine HCl (Benadryl Po*) 25 mg PO Q6H PRN PRN Reason: ITCHING Last Admin: 04/02/18 04:05 Dose: 25 mg Docusate Sodium (Colace Cap*) 100 mg PO BID PRN PRN Reason: CONSTIPATION Last Admin: 04/07/18 10:09 Dose: 100 mg Famotidine (Pepcid Tab*) 20 mg PO BID PRN PRN Reason: HEARTBURN Last Admin: 04/06/18 15:19 Dose: 20 mg Gabapentin (Neurontin Cap(*)) 100 mg PO TID [facility] Last Admin: 04/09/18 10:05 Dose: Not Given Haloperidol (Haldol Tab*) 5 mg PO BID [facility] Haloperidol Lactate (Haldol Inj Iv/Im*) 5 mg IM BID PRN PRN Reason: AGITATION Heparin Sodium (Porcine) (Heparin Flush Picc/Ml/Cvc(*)) 1 ml FLUSH 0600,1800 [facility]; Protocol Last Admin: 04/09/18 06:25 Dose: Not Given Heparin Sodium (Porcine) (Heparin Vial(*)) 5,000 units SUBCUT Q8HR [facility] Last Admin: 04/09/18 06:26 Dose: Not Given Vancomycin HCl 1,250 mg/ (Sodium Chloride) 250 mls @ 166.667 mls/hr IVPB Q24H [facility] Last Admin: 04/08/18 18:16 Dose: Not Given Magnesium Hydroxide (Milk Of Magnesia Liq*) 30 ml PO Q4H PRN PRN Reason: CONSTIPATION Melatonin (Melatonin) 3 mg PO BEDTIME PRN; Protocol PRN Reason: SLEEP Metoprolol Succinate (Toprol Xl Tab*) 50 mg PO DAILY [facility] Last Admin: 04/09/18 10:05 Dose: Not Given Morphine Sulfate (Morphine Oral.Soln 10 Mg*) 5 mg PO Q6H PRN PRN Reason: PAIN Last Admin: 04/08/18 02:25 Dose: 5 mg Ondansetron HCl (Zofran Inj*) 4 mg IV Q4H PRN PRN Reason: NAUSEA/VOMITING Pharmacy Consult (Vancomycin Per Pharmacy*) 1 note FOLLOW UP .VANC PER PHARMACY [facility] Pharmacy Profile Note (Vancomycin Trough Check) 1 note FOLLOW UP ONCE ONE Stop: 04/11/18 17:31 Polyethylene Glycol/Electrolytes (Miralax*) 17 gm PO DAILY PRN PRN Reason: CONSTIPATION Last Admin: 04/05/18 13:42 Dose: 17 gm Tizanidine HCl (Zanaflex Tab*) 4 mg PO QID PRN PRN Reason: SPASMS Last Admin: 04/07/18 22:32 Dose: 4 mg - Discharge Plan Discharge Plan: Consider Longer Term Tx - [facility] or SNF placement
[2018-04-09] MEDS: Haloperidol INJ IV/IM* 5 MG/ML AMP IM PRN ×2 (14:03→21:06)
[2018-04-09] MEDS: Haloperidol TAB* 5 MG PO SCH ×2 (14:04→20:37)
[2018-04-09] MEDS: Morphine ORAL.SOLN 10 mg* 2 MG/ML UDC 5 ml PO PRN ×2 (15:45→20:35)
[2018-04-09] MEDS: Vancomycin(*) 1,250 MG in NS 0.9% 250 ML* 250 ML IVPB SCH (16:51)
[2018-04-09] MEDS: DOXYcycline CAP(*) 100 MG PO SCH (20:46)
[2018-04-09] MEDS: Atorvastatin* 10 MG TAB PO SCH (20:46)
[2018-04-10] MEDS: Heparin VIAL(*) 5000 UNITS/ML VIAL (FIVE THOUSAND) SUBCUT SCH ×3 (05:05→23:00)
[2018-04-10] MEDS: Metoprolol Succinate XL TAB* 50 MG PO SCH (09:56)
[2018-04-10] MEDS: Cholecalciferol TAB* 1000 UNITS PO SCH (09:56)
[2018-04-10] MEDS: Gabapentin CAP(*) 100 MG PO SCH ×3 (09:56→23:00)
[2018-04-10] MEDS: Ascorbic Acid TAB* 500 MG PO SCH (09:56)
[2018-04-10] MEDS: DOXYcycline CAP(*) 100 MG PO SCH ×2 (09:56→23:16)
[2018-04-10] MEDS: Haloperidol TAB* 5 MG PO SCH (10:49)
[2018-04-10] MEDS: Collagenase 250 MG/GM OINT* 30 GM TOPICAL SCH (10:57)
[2018-04-10] MEDS: tiZANidine TAB* 2 MG PO PRN ×2 (11:21→18:13)
[2018-04-10] MEDS: OLANzapine TAB*ODT* 5 MG PO SCH ×2 (12:47→23:14)
--- NOTE | 2018-04-10 12:49 | PN ---
Subjective Date of Service: 04/10/18 Interval History: Patient seen, he will not allow anyone to examine him or take VS, to prevent agitation, will comply with his request. Explained to patient that he is medically optimized and refusing care and making suicidal threats and passive statements. He is also refusing food and medication. Explained that for these reasons, psychiatry feels he lacks capacity. Explained to patient we will give him medications to help him calm down, but he states he will continue to refuse and said "get security" when I told him we would give him IM medication ( zyprexa) to help with his mood. He is refusing oral meds, including antibiotics. 1:[address], primary RN at bedside during conversation. Objective Active Medications: Acetaminophen (Tylenol Tab*) 650 mg PO Q4H PRN PRN Reason: FEVER/PAIN Last Admin: 04/01/18 05:49 Dose: 650 mg Al Hydrox/Mg Hydrox/Simethicone (Maalox Plus*) 30 ml PO Q6H PRN PRN Reason: INDIGESTION Albuterol (Ventolin 2.5 Mg/3 Ml Neb.Dayami*) 2.5 mg INH [id number] AWAKE PRN PRN Reason: sob/wheezing Ascorbic Acid (Vitamin C Tab*) 1,000 mg PO DAILY [facility] Last Admin: 04/10/18 09:56 Dose: Not Given Atorvastatin Calcium (Lipitor*) 10 mg PO 2100 [facility] Last Admin: 04/09/18 20:46 Dose: Not Given Capsaicin (Zostrix 0.025% Cream*) 1 applic TOPICAL BID PRN PRN Reason: pain Last Admin: 04/08/18 04:48 Dose: 1 applic Cholecalciferol (Vitamin D Tab*) 1,000 units PO DAILY [facility] Last Admin: 04/10/18 09:56 Dose: Not Given Collagenase (Santyl 250 Mg/Gm Oint*) 1 applic TOPICAL DAILY [facility] Last Admin: 04/10/18 10:57 Dose: 1 applic Diphenhydramine HCl (Benadryl Po*) 25 mg PO Q6H PRN PRN Reason: ITCHING Last Admin: 04/02/18 04:05 Dose: 25 mg Docusate Sodium (Colace Cap*) 100 mg PO BID PRN PRN Reason: CONSTIPATION Last Admin: 04/07/18 10:09 Dose: 100 mg Doxycycline Hyclate (Vibramycin Cap(*)) 100 mg PO BID [facility] Stop: 04/13/18 20:59 Last Admin: 04/10/18 09:56 Dose: Not Given Famotidine (Pepcid Tab*) 20 mg PO BID PRN PRN Reason: HEARTBURN Last Admin: 04/06/18 15:19 Dose: 20 mg Gabapentin (Neurontin Cap(*)) 100 mg PO TID [facility] Last Admin: 04/10/18 09:56 Dose: Not Given Heparin Sodium (Porcine) (Heparin Flush Picc/Ml/Cvc(*)) 1 ml FLUSH 0600,1800 [facility]; Protocol Last Admin: 04/10/18 04:57 Dose: Not Given Heparin Sodium (Porcine) (Heparin Vial(*)) 5,000 units SUBCUT Q8HR [facility] Last Admin: 04/10/18 05:05 Dose: Not Given Vancomycin HCl 1,250 mg/ (Sodium Chloride) 250 mls @ 166.667 mls/hr IVPB Q24H [facility] Last Admin: 04/09/18 16:51 Dose: Not Given Magnesium Hydroxide (Milk Of Magnesia Liq*) 30 ml PO Q4H PRN PRN Reason: CONSTIPATION Melatonin (Melatonin) 3 mg PO BEDTIME PRN; Protocol PRN Reason: SLEEP Metoprolol Succinate (Toprol Xl Tab*) 50 mg PO DAILY [facility] Last Admin: 04/10/18 09:56 Dose: Not Given Morphine Sulfate (Morphine Oral.Soln 10 Mg*) 5 mg PO Q6H PRN PRN Reason: PAIN Last Admin: 04/09/18 20:35 Dose: 5 mg Olanzapine (Zyprexa Im (Nf)) 5 mg IM BID [facility]; Protocol Olanzapine (Zyprexa * Tab Odt) 5 mg PO BID [facility] Ondansetron HCl (Zofran Inj*) 4 mg IV Q4H PRN PRN Reason: NAUSEA/VOMITING Pharmacy Consult (Vancomycin Per Pharmacy*) 1 note FOLLOW UP .VANC PER PHARMACY [facility] Pharmacy Profile Note (Vancomycin Trough Check) 1 note FOLLOW UP ONCE ONE Stop: 04/11/18 17:31 Polyethylene Glycol/Electrolytes (Miralax*) 17 gm PO DAILY PRN PRN Reason: CONSTIPATION Last Admin: 04/05/18 13:42 Dose: 17 gm Tizanidine HCl (Zanaflex Tab*) 4 mg PO QID PRN PRN Reason: SPASMS Last Admin: 04/10/18 11:21 Dose: 4 mg Vital Signs - 8 hr 04/10/18 09:30 Respiratory 20 Rate Oxygen Devices in Use Now: None Appearance: alert, disheveled, no eye contact - Nutrition: Malnutrition Diagnosis/Plan Malnutrition Assessment by Registered Dietitian: Malnutrition Assessment Clinical Characteristics Acute,Severe Malnutrition Assessment: - Moderate temporal muscle wasting and muscle Criteria wasting of upper extrmities - Underweight: BMI 17.0 - Pt report of 20% wt loss (severe) Malnutrition Assessment: - Will send whole milk daily at B, L, D (170 Interventions kcals, 8 grams protein per serving) - Will send double protein portions at B, L, D Malnutrition Assessment: Goals 1. Intake will promote weight repletion w/o additional loss of lean body mass - Goal: > 75% intake of meals 2. Intake will promote wound healing w/o additional pressure related skin breakdown Result Diagrams: 04/05/18 06:40 04/08/18 06:05 Microbiology and Other Data: Microbiology 03/29/18 22:47 Nasal Screen MRSA (PCR) - Final Nasal Mrsa Detected Assess/Plan/Problems-Billing Assessment: Mr. 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 Also being followed by [facility] psychiatrist. - Patient Problems (1) Suicide attempt Current Visit: Yes Status: Acute Comment: - U team following daily, Pt on close monitoring with staff - With bipolar disorder/MDD? - Refusing seroquel and all other meds, psych changed to zyprexa as opposed to haldol - Per psychiatry, patient is not a candidate for our [facility] - Requested psychiatrist, Dr. Romano, to seek referrals for med-psych hospital that would be able to handle this patient's needs appropriately, as I do not believe he would be able to go back to [facility] at this time - Discussed at length with RN, charge nurse and SW (2) Hypertension Code(s): I10 - ESSENTIAL (PRIMARY) HYPERTENSION SNOMED Code(s): 75616385 Comment: - Home lisinopril, metoprolol, however patient refuses VS to be taken and refuses meds - Unknown if BP is stable or not (3) Osteomyelitis Code(s): M86.9 - OSTEOMYELITIS, UNSPECIFIED SNOMED Code(s): 48017008 Comment: - From decubitus ulcers, was followed at [facility] - PICC removed, as patient's atbx are due to finish this week and he has refused vanco since the weekend - Placed on doxycycline which he is also refusing - Wound care with santyl and guaze, but patient is also refusing basic wound care and hygeine - On Mukesh mattress (4) Paraplegia Code(s): G82.20 - PARAPLEGIA, UNSPECIFIED SNOMED Code(s): 22130410 Comment: - Hx of CVA with SOFTWARE DEVELOPER MID LEVEL shunt that left him paralyzed (5) Protein-calorie malnutrition, severe Code(s): E43 - UNSPECIFIED SEVERE PROTEIN-CALORIE MALNUTRITION SNOMED Code(s) : 326374083 Comment: - Prealbumin 12 - BMI 17 - Pt reports 20% weight loss - RD following, however patient is stating he is on a hunger strike and is refusing to eat (6) UTI (urinary tract infection) Comment: - Likely only colonization, as patient has suprapubic catheter - Cath will be changed by urology today if patient allows (7) DVT prophylaxis Code(s): EJR7768 - SNOMED Code(s): 343433154 Comment: - Heparin SQ (8) Full code status Current Visit: Yes Status: Acute Code(s): Z78.9 - OTHER SPECIFIED HEALTH STATUS SNOMED Code(s): 983466763 Comment: Status and Disposition: Patient has no acute medical needs at this time. Will work closely with all staff involved to place patient in appropriate facility/care unit, as he should not remain on an acute care medical unit.
--- NOTE | 2018-04-10 13:08 | CONSULT ---
Identification - Patient Identification Reason for Psychiatric Consultation: Suicidal Ideation -: Patient is a 52 year old, M admitted on 03/29/18. - MHU Identification Employment Status: Disabled Hx Psychiatric Hospitalization: Yes History - Objective HPI: Gabriel is seen for follow up. On examination he presents as sullen and withdrawn , with his arm draped over his head and eyes closed. He appears somewhat lethargic, perhaps secondary to initiation of antipsychotic therapy last night. His 1:1 observer is present and reports that Gabriel did take some medicine voluntarily this morning and allowed staff to bathe him and address some of his bed sores. Gabriel denies active suicidal ideas or intentions today but makes passive suicidal statements such as "What's the point?" and "You wouldn't want to be alive either if you were inside my body." He expresses disappointment with me that he was not sent home to his apartment in [place] yesterday. "You told me I could go home." I informed him of my role as a parts consultant in his care and that my understanding, from his father, Yohannes Barth, is that Gabriel no longer has intact home health services in his apartment and therefore could not be safely returned there. He continues to complain bitterly about what he perceives as lack of adequate pain management. The patient continues not to eat as a form of protest to the care he has received here. I attempted to explore some of his tendencies towards help rejection but he appears fatigued and the interview is truncated to allow him time to rest. Exam Appearance: Thin Framed Hygiene: Mal-odorous Grooming: Fairly Well Kept Psychomotor Activities: Abnormal-Decreased Exhibits Abnormal Movement: No Attitude and Relatedness: Superficially Cooperative Eye Contact: Poor - Speech Quality: Unpressured Latencies: Long Quantity: Terse Patient's Decription of Mood: "Sad" Observed Affect: Constricted Affect Consistent with: Dysphoria Patient's Thought Process: Coherent Thought Content: Yes Passive Wish, No Suicidal Planning, No Homicidal Ideation, No Paranoid Ideation Experiencing Hallucinations: No, Sensorium is Clear Type of Hallucinations: Visual: No, Auditory: No, Command: No Level of Consciousness: Lethargic Orientation: Yes Intact, Yes Orientated to Time, Yes Orientated to Place, Yes Orientated to Person Impulse Control: Poor Insight and Judgement: Impaired Impression - Impression Clinical Impression: 52 y.o. , white male with paraplegia, arrives on 9.41 from [facility] following a suicidal gesture in which he tied a sheet around his neck and motioned to hang himself. He remains defiant, irritable and irrational and refusing psychotropic meds despite the evidence hypomania and mood dysregulation. Inpatient DSM-V Dx: F31.9 Merits Inpatient Hospitalization: Yes Problem List - MHU Problems Type of Problem: Attitude and Relatedness Status of Problem: Active Plan - Treatment Plan Treatment Plan: The patient appears to have benefitted from a couple of doses so far of IM haloperidol, which he does not have the capacity to refuse. I will switch this to scheduled olanzapine, as this has better mood stabilizing benefits and will also increase his appetite, making it harder for him to refuse nourishment. I do believe his suicidality is behavioral and manipulative in nature and not likely to improve in an inpatient psychiatric setting. He remains a placement challenge. I have recommended to staff that options for enhanced at-home care at his apartment in [place] be explored and the patient is agreeable with this. It would be in his interest to be safely placed back in his [facility], [place], [place]. Psychiatry will continue to follow. Continued Medication Management: Start Medication Medications: Current Medications Acetaminophen (Tylenol Tab*) 650 mg PO Q4H PRN PRN Reason: FEVER/PAIN Last Admin: 04/01/18 05:49 Dose: 650 mg Al Hydrox/Mg Hydrox/Simethicone (Maalox Plus*) 30 ml PO Q6H PRN PRN Reason: INDIGESTION Albuterol (Ventolin 2.5 Mg/3 Ml Neb.Dayami*) 2.5 mg INH [id number] AWAKE PRN PRN Reason: sob/wheezing Ascorbic Acid (Vitamin C Tab*) 1,000 mg PO DAILY [facility] Last Admin: 04/10/18 09:56 Dose: Not Given Atorvastatin Calcium (Lipitor*) 10 mg PO 2100 [facility] Last Admin: 04/09/18 20:46 Dose: Not Given Capsaicin (Zostrix 0.025% Cream*) 1 applic TOPICAL BID PRN PRN Reason: pain Last Admin: 04/08/18 04:48 Dose: 1 applic Cholecalciferol (Vitamin D Tab*) 1,000 units PO DAILY [facility] Last Admin: 04/10/18 09:56 Dose: Not Given Collagenase (Santyl 250 Mg/Gm Oint*) 1 applic TOPICAL DAILY [facility] Last Admin: 04/10/18 10:57 Dose: 1 applic Diphenhydramine HCl (Benadryl Po*) 25 mg PO Q6H PRN PRN Reason: ITCHING Last Admin: 04/02/18 04:05 Dose: 25 mg Docusate Sodium (Colace Cap*) 100 mg PO BID PRN PRN Reason: CONSTIPATION Last Admin: 04/07/18 10:09 Dose: 100 mg Doxycycline Hyclate (Vibramycin Cap(*)) 100 mg PO BID [facility] Stop: 04/13/18 20:59 Last Admin: 04/10/18 09:56 Dose: Not Given Famotidine (Pepcid Tab*) 20 mg PO BID PRN PRN Reason: HEARTBURN Last Admin: 04/06/18 15:19 Dose: 20 mg Gabapentin (Neurontin Cap(*)) 100 mg PO TID [facility] Last Admin: 04/10/18 09:56 Dose: Not Given Heparin Sodium (Porcine) (Heparin Flush Picc/Ml/Cvc(*)) 1 ml FLUSH 0600,1800 [facility]; Protocol Last Admin: 04/10/18 04:57 Dose: Not Given Heparin Sodium (Porcine) (Heparin Vial(*)) 5,000 units SUBCUT Q8HR [facility] Last Admin: 04/10/18 05:05 Dose: Not Given Vancomycin HCl 1,250 mg/ (Sodium Chloride) 250 mls @ 166.667 mls/hr IVPB Q24H [facility] Last Admin: 04/09/18 16:51 Dose: Not Given Magnesium Hydroxide (Milk Of Magnesia Liq*) 30 ml PO Q4H PRN PRN Reason: CONSTIPATION Melatonin (Melatonin) 3 mg PO BEDTIME PRN; Protocol PRN Reason: SLEEP Metoprolol Succinate (Toprol Xl Tab*) 50 mg PO DAILY [facility] Last Admin: 04/10/18 09:56 Dose: Not Given Morphine Sulfate (Morphine Oral.Soln 10 Mg*) 5 mg PO Q6H PRN PRN Reason: PAIN Last Admin: 04/09/18 20:35 Dose: 5 mg Olanzapine (Zyprexa Im (Nf)) 5 mg IM BID [facility]; Protocol Last Admin: 04/10/18 12:48 Dose: Not Given Olanzapine (Zyprexa * Tab Odt) 5 mg PO BID [facility] Last Admin: 04/10/18 12:47 Dose: 5 mg Ondansetron HCl (Zofran Inj*) 4 mg IV Q4H PRN PRN Reason: NAUSEA/VOMITING Pharmacy Consult (Vancomycin Per Pharmacy*) 1 note FOLLOW UP .VANC PER PHARMACY [facility] Pharmacy Profile Note (Vancomycin Trough Check) 1 note FOLLOW UP ONCE ONE Stop: 04/11/18 17:31 Polyethylene Glycol/Electrolytes (Miralax*) 17 gm PO DAILY PRN PRN Reason: CONSTIPATION Last Admin: 04/05/18 13:42 Dose: 17 gm Tizanidine HCl (Zanaflex Tab*) 4 mg PO QID PRN PRN Reason: SPASMS Last Admin: 04/10/18 11:21 Dose: 4 mg - Discharge Plan Discharge Plan: Outpatient Follow Up
[2018-04-10] MEDS: Vancomycin(*) 1,250 MG in NS 0.9% 250 ML* 250 ML IVPB SCH (17:35)
[2018-04-10] MEDS ORDERED: OLANzapine TAB*ODT* 5 MG PO SCH (21:00)
[2018-04-10] MEDS: Atorvastatin* 10 MG TAB PO SCH (23:26)
[2018-04-11] MEDS: Heparin VIAL(*) 5000 UNITS/ML VIAL (FIVE THOUSAND) SUBCUT SCH ×3 (05:18→20:57)
[2018-04-11 07:42] LABS: EGFR Non-African American 109.4 (>60)
[2018-04-11] MEDS: OLANzapine TAB*ODT* 5 MG PO SCH ×2 (07:42→21:00)
[2018-04-11] MEDS: DOXYcycline CAP(*) 100 MG PO SCH ×2 (07:47→21:07)
[2018-04-11] MEDS: Cholecalciferol TAB* 1000 UNITS PO SCH (07:47)
[2018-04-11] MEDS: Collagenase 250 MG/GM OINT* 30 GM TOPICAL SCH (07:47)
[2018-04-11] MEDS: Gabapentin CAP(*) 100 MG PO SCH ×3 (07:47→20:57)
[2018-04-11] MEDS: Ascorbic Acid TAB* 500 MG PO SCH (07:47)
[2018-04-11] MEDS: Metoprolol Succinate XL TAB* 50 MG PO SCH (07:47)
--- NOTE | 2018-04-11 13:46 | CONSULT ---
Identification - Patient Identification Reason for Psychiatric Consultation: Suicidal Ideation -: Patient is a 52 year old, M admitted on 03/29/18. - MHU Identification Employment Status: Disabled Hx Psychiatric Hospitalization: Yes History - Objective HPI: Gabriel is seen for follow up in the presence of his 1:1 and the hospital attenuator. His mood is considerably better today and he is light-hearted, making irreverent jokes and smiling. I am told that he ate 100% of his breakfast and lunch and has allowed staff to perform routine care for his ADLs and dressing changes. He does continue, however, to refuse oral meds other than dissolvable olanzapine, which he lacks capacity to refuse. Gabriel minimizes his recent history of suicidality today, seeming frustrated that he has been labeled "suicidal" and therefore not being accepted for transfer to nursing facilities back in his [place]. "How long will it take to get that off my record Doc? I never really was gonna do anything." Gabriel is confronted about his uncooperative behaviors of late and encouraged to view the treatment team as his partners in wellness. He denies SI unequivocally and says we are wasting the 1:1 aide's time. He verbally contracts with this clinician to accept all healthy interventions, including medications, meals and nursing assistance from the staff. He appears motivated to find a new facility to live in and asks how long this might take. He appears to be tolerating the olanzapine well, with only noted side effect being increased appetite, which is helpful. Exam Appearance: Thin Framed Hygiene: Normal Grooming: Fairly Well Kept Psychomotor Activities: Normal Exhibits Abnormal Movement: No Attitude and Relatedness: Cooperative Eye Contact: Good - Speech Quality: Unpressured Latencies: Normal Quantity: Appropriate Patient's Decription of Mood: "Good" Observed Affect: Good Affect Consistent with: Euthymia Patient's Thought Process: Coherent Thought Content: No Passive Wish, No Suicidal Planning, No Homicidal Ideation, No Paranoid Ideation Experiencing Hallucinations: No, Sensorium is Clear Type of Hallucinations: Visual: No, Auditory: No, Command: No Level of Consciousness: Alert Orientation: Yes Intact, Yes Orientated to Time, Yes Orientated to Place, Yes Orientated to Person Impulse Control: Tenuous Insight and Judgement: Fair Impression - Impression Clinical Impression: 52 y.o. , white male with paraplegia, arrives on 9.41 from [facility] following a suicidal gesture in which he tied a sheet around his neck and motioned to hang himself. His hospital course has been complicated by mood dysregulation, manipulative behavior and uncooperativity at times. Inpatient DSM-V Dx: F31.9 Merits Inpatient Hospitalization: Yes Problem List - MHU Problems Type of Problem: Attitude and Relatedness Status of Problem: Active Plan - Treatment Plan Treatment Plan: The patient appears to be benefitting from olanzapine 5mg PO BID in terms of improved mood and appetite. He denies suicidal ideation and reports that he is willing to work with the team to move his care forward and seek post-discharge placement in [place], which is his preferred community. I will discontinue the 1:1 and recommend discharge pending placement. Psychiatry will continue to follow. Continued Medication Management: Start Medication Medications: Current Medications Acetaminophen (Tylenol Tab*) 650 mg PO Q4H PRN PRN Reason: FEVER/PAIN Last Admin: 04/01/18 05:49 Dose: 650 mg Al Hydrox/Mg Hydrox/Simethicone (Maalox Plus*) 30 ml PO Q6H PRN PRN Reason: INDIGESTION Albuterol (Ventolin 2.5 Mg/3 Ml Neb.Dayami*) 2.5 mg INH [id number] AWAKE PRN PRN Reason: sob/wheezing Ascorbic Acid (Vitamin C Tab*) 1,000 mg PO DAILY [facility] Last Admin: 04/11/18 07:47 Dose: Not Given Atorvastatin Calcium (Lipitor*) 10 mg PO 2100 [facility] Last Admin: 04/10/18 23:26 Dose: Not Given Capsaicin (Zostrix 0.025% Cream*) 1 applic TOPICAL BID PRN PRN Reason: pain Last Admin: 04/08/18 04:48 Dose: 1 applic Cholecalciferol (Vitamin D Tab*) 1,000 units PO DAILY [facility] Last Admin: 04/11/18 07:47 Dose: Not Given Collagenase (Santyl 250 Mg/Gm Oint*) 1 applic TOPICAL DAILY [facility] Last Admin: 04/11/18 07:47 Dose: 1 applic Diphenhydramine HCl (Benadryl Po*) 25 mg PO Q6H PRN PRN Reason: ITCHING Last Admin: 04/02/18 04:05 Dose: 25 mg Docusate Sodium (Colace Cap*) 100 mg PO BID PRN PRN Reason: CONSTIPATION Last Admin: 04/07/18 10:09 Dose: 100 mg Doxycycline Hyclate (Vibramycin Cap(*)) 100 mg PO BID [facility] Stop: 04/13/18 20:59 Last Admin: 04/11/18 07:47 Dose: Not Given Famotidine (Pepcid Tab*) 20 mg PO BID PRN PRN Reason: HEARTBURN Last Admin: 04/06/18 15:19 Dose: 20 mg Gabapentin (Neurontin Cap(*)) 100 mg PO TID [facility] Last Admin: 04/11/18 13:26 Dose: Not Given Heparin Sodium (Porcine) (Heparin Flush Picc/Ml/Cvc(*)) 1 ml FLUSH 0600,1800 [facility]; Protocol Last Admin: 04/11/18 05:18 Dose: Not Given Heparin Sodium (Porcine) (Heparin Vial(*)) 5,000 units SUBCUT Q8HR [facility] Last Admin: 04/11/18 13:26 Dose: Not Given Magnesium Hydroxide (Milk Of Magnesia Liq*) 30 ml PO Q4H PRN PRN Reason: CONSTIPATION Melatonin (Melatonin) 3 mg PO BEDTIME PRN; Protocol PRN Reason: SLEEP Metoprolol Succinate (Toprol Xl Tab*) 50 mg PO DAILY [facility] Last Admin: 04/11/18 07:47 Dose: Not Given Morphine Sulfate (Morphine Oral.Soln 10 Mg*) 5 mg PO Q6H PRN PRN Reason: PAIN Last Admin: 04/09/18 20:35 Dose: 5 mg Olanzapine (Zyprexa * Tab Odt) 5 mg PO BID [facility] Last Admin: 04/11/18 07:42 Dose: 5 mg Olanzapine (Zyprexa Im (Nf)) 5 mg IM BID PRN; Protocol PRN Reason: ANXIETY Ondansetron HCl (Zofran Inj*) 4 mg IV Q4H PRN PRN Reason: NAUSEA/VOMITING Polyethylene Glycol/Electrolytes (Miralax*) 17 gm PO DAILY PRN PRN Reason: CONSTIPATION Last Admin: 04/05/18 13:42 Dose: 17 gm Tizanidine HCl (Zanaflex Tab*) 4 mg PO QID PRN PRN Reason: SPASMS Last Admin: 04/10/18 18:13 Dose: 4 mg - Discharge Plan Discharge Plan: Outpatient Follow Up
--- NOTE | 2018-04-11 14:39 | PN ---
Subjective Date of Service: 04/11/18 Interval History: Pt seen and examined. Meds and labs reviewed. CC: N/A ROS: Denied CHEN/dizziness, F/C, N/V, CP, SOB, increased cough, sputum production , abd pain, diarrhea, constipation, dysuria, myalgias, arthralgias, throat pain , and new skin lesions. The rest of the 14 point ROS are unremarkable. PHYSICAL EXAM: GEN APPEARANCE: Awake, not in acute distress HEENT: NC/AT, PERRLA, moist oral mucosa, (-) throat erythema NECK: Soft, supple, (-) cervical LAD, (-)JVD HEART: S1S2 WNL, RRR, No MRG CHEST: CTA, BL, GAE, No W/R/R ABD: Soft, ND/NT, NABS 4x Q EXT: No C/C/E SKIN: Warm to touch PSYCH: No active psychosis, hallucinations, depression, SI/HI Objective Active Medications: Acetaminophen (Tylenol Tab*) 650 mg PO Q4H PRN PRN Reason: FEVER/PAIN Last Admin: 04/01/18 05:49 Dose: 650 mg Al Hydrox/Mg Hydrox/Simethicone (Maalox Plus*) 30 ml PO Q6H PRN PRN Reason: INDIGESTION Albuterol (Ventolin 2.5 Mg/3 Ml Neb.Dayami*) 2.5 mg INH [id number] AWAKE PRN PRN Reason: sob/wheezing Ascorbic Acid (Vitamin C Tab*) 1,000 mg PO DAILY [facility] Last Admin: 04/11/18 07:47 Dose: Not Given Atorvastatin Calcium (Lipitor*) 10 mg PO 2100 [facility] Last Admin: 04/10/18 23:26 Dose: Not Given Capsaicin (Zostrix 0.025% Cream*) 1 applic TOPICAL BID PRN PRN Reason: pain Last Admin: 04/08/18 04:48 Dose: 1 applic Cholecalciferol (Vitamin D Tab*) 1,000 units PO DAILY [facility] Last Admin: 04/11/18 07:47 Dose: Not Given Collagenase (Santyl 250 Mg/Gm Oint*) 1 applic TOPICAL DAILY [facility] Last Admin: 04/11/18 07:47 Dose: 1 applic Diphenhydramine HCl (Benadryl Po*) 25 mg PO Q6H PRN PRN Reason: ITCHING Last Admin: 04/02/18 04:05 Dose: 25 mg Docusate Sodium (Colace Cap*) 100 mg PO BID PRN PRN Reason: CONSTIPATION Last Admin: 04/07/18 10:09 Dose: 100 mg Doxycycline Hyclate (Vibramycin Cap(*)) 100 mg PO BID [facility] Stop: 04/13/18 20:59 Last Admin: 04/11/18 07:47 Dose: Not Given Famotidine (Pepcid Tab*) 20 mg PO BID PRN PRN Reason: HEARTBURN Last Admin: 04/06/18 15:19 Dose: 20 mg Gabapentin (Neurontin Cap(*)) 100 mg PO TID [facility] Last Admin: 04/11/18 13:26 Dose: Not Given Heparin Sodium (Porcine) (Heparin Flush Picc/Ml/Cvc(*)) 1 ml FLUSH 0600,1800 [facility]; Protocol Last Admin: 04/11/18 05:18 Dose: Not Given Heparin Sodium (Porcine) (Heparin Vial(*)) 5,000 units SUBCUT Q8HR [facility] Last Admin: 04/11/18 13:26 Dose: Not Given Magnesium Hydroxide (Milk Of Magnnanda Liq*) 30 ml PO Q4H PRN PRN Reason: CONSTIPATION Melatonin (Melatonin) 3 mg PO BEDTIME PRN; Protocol PRN Reason: SLEEP Metoprolol Succinate (Toprol Xl Tab*) 50 mg PO DAILY [facility] Last Admin: 04/11/18 07:47 Dose: Not Given Morphine Sulfate (Morphine Oral.Soln 10 Mg*) 5 mg PO Q6H PRN PRN Reason: PAIN Last Admin: 04/09/18 20:35 Dose: 5 mg Olanzapine (Zyprexa * Tab Odt) 5 mg PO BID [facility] Last Admin: 04/11/18 07:42 Dose: 5 mg Olanzapine (Zyprexa Im (Nf)) 5 mg IM BID PRN; Protocol PRN Reason: ANXIETY Ondansetron HCl (Zofran Inj*) 4 mg IV Q4H PRN PRN Reason: NAUSEA/VOMITING Polyethylene Glycol/Electrolytes (Miralax*) 17 gm PO DAILY PRN PRN Reason: CONSTIPATION Last Admin: 04/05/18 13:42 Dose: 17 gm Tizanidine HCl (Zanaflex Tab*) 4 mg PO QID PRN PRN Reason: SPASMS Last Admin: 04/10/18 18:13 Dose: 4 mg Vital Signs - 8 hr 04/11/18 08:00 Respiratory 20 Rate Oxygen Devices in Use Now: None - Nutrition: Malnutrition Diagnosis/Plan Malnutrition Assessment by Registered Dietitian: Malnutrition Assessment Clinical Characteristics Acute,Severe Malnutrition Assessment: - Moderate temporal muscle wasting and muscle Criteria wasting of upper extrmities - Underweight: BMI 17.0 - Pt report of 20% wt loss (severe) Malnutrition Assessment: - Will send whole milk daily at B, L, D (170 Interventions kcals, 8 grams protein per serving) - Will send double protein portions at B, L, D Malnutrition Assessment: Goals 1. Intake will promote weight repletion w/o additional loss of lean body mass - Goal: > 75% intake of meals 2. Intake will promote wound healing w/o additional pressure related skin breakdown Result Diagrams: 04/05/18 06:40 04/11/18 06:53 Microbiology and Other Data: Microbiology 03/29/18 22:47 Nasal Screen MRSA (PCR) - Final Nasal Mrsa Detected Assess/Plan/Problems-Billing Assessment: Mr. 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 Also being followed by [facility] psychiatrist. - Patient Problems (1) Suicide attempt Current Visit: Yes Status: Acute Comment: -Appreciate psych re-eval -1:1 D/Cd -Currently denies SI -For post D/C placement at [place] -Still continues to decline other meds except for olanzapine (2) Hypertension Current Visit: Yes Status: Acute Code(s): I10 - ESSENTIAL (PRIMARY) HYPERTENSION SNOMED Code(s): 09943608 Comment: -Continue Home lisinopril, metoprolol, however patient refuses VS to be taken and refuses meds -Unknown if BP is stable or not given non-compliance due to his psychiatric issues (3) Osteomyelitis Current Visit: Yes Status: Acute Code(s): M86.9 - OSTEOMYELITIS, UNSPECIFIED SNOMED Code(s): 17530290 Comment: - From decubitus ulcers, was followed at [facility] - D/Cd Vancomycin since PICC line removed and pt not compliant - Placed on doxycycline which he is also refusing - Wound care with santyl and guaze, but patient is also refusing basic wound care and hygeine - On [place] mattress (4) Paraplegia Current Visit: Yes Status: Acute Code(s): G82.20 - PARAPLEGIA, UNSPECIFIED SNOMED Code(s): 65913356 Comment: - Hx of CVA with UNIT CONTROLLER shunt that left him paralyzed (5) Protein-calorie malnutrition, severe Current Visit: Yes Status: Acute Code(s): E43 - UNSPECIFIED SEVERE PROTEIN- CALORIE MALNUTRITION SNOMED Code(s): 689041791 Comment: - Prealbumin 12 - BMI 17 - Pt reports 20% weight loss - RD following, however patient is stating he is on a hunger strike and is refusing to eat (6) DVT prophylaxis Current Visit: Yes Status: Acute Code(s): QVZ8028 - SNOMED Code(s): 824697576 Comment: - Heparin SQ Status and Disposition: -For possible D/C in 1-2 days, then post D/C placement at [place]??
[2018-04-11 16:21] LABS: Urine Appearance Clear; Urine Blood 2+ (Negative); Urine Color Colorless; Urine Ketones Negative (Negative); Urine Protein Negative (Negative); Urine Red Blood Cell Trace(0-2/hpf) (Absent); Urine Specific Gravity 1.002 (1.010-1.030); Urine Urobilinogen Negative (Negative); Urine White Blood Cell Trace(0-5/hpf) (Absent)
[2018-04-11] MEDS ORDERED: Vancomycin Trough Check NOTE FOLLOW UP ONE (17:30)
[2018-04-11] MEDS: Nystatin TOP POWDER* 15 GM BTL TOPICAL SCH (21:00)
[2018-04-11] MEDS: Atorvastatin* 10 MG TAB PO SCH (21:07)
[2018-04-12] MEDS: Heparin VIAL(*) 5000 UNITS/ML VIAL (FIVE THOUSAND) SUBCUT SCH ×3 (05:07→22:33)
[2018-04-12] MEDS: Morphine ORAL.SOLN 10 mg* 2 MG/ML UDC 5 ml PO PRN ×2 (05:11→20:09)
[2018-04-12] MEDS: tiZANidine TAB* 2 MG PO PRN ×2 (05:13→22:31)
[2018-04-12 07:32] LABS: ABS Basophils 0.1 10^3/ul (0-0.2); ABS Eosinophils 0.2 10^3/ul (0-0.6); ABS Lymphocytes 1.8 10^3/ul (1.0-4.8); ABS Monocytes 0.9 10^3/ul (0-0.8); ABS Neutrophils 6.6 10^3/ul (1.5-7.7); ABS Nucleated RBC 0 10^3/ul; Eosinophil % 2.1 % (0-6); Hematocrit 28 % (42-52); Hemoglobin 9.3 g/dl (14.0-18.0); Lymphocyte % 18.9 % (25-47); Mean Corpuscular HGB Conc 34 g/dl (31-36); Mean Corpuscular Hemoglobin 29 pg (27-31); Mean Corpuscular Volume 86 fL (80-94); Mean Platelet Volume 7.1 um3 (7.4-10.4); Nucleated Red Blood Cells % 0; Platelet Count 430 10^3/ul (150-450); Red Blood Count 3.19 10^6/ul (4.00-5.40); Red Cell Distribution Width 18 % (10.5-15); White Blood Count 9.6 10^3/ul (3.5-10.8)
[2018-04-12 07:51] LABS: EGFR Non-African American 94.7 (>60)
[2018-04-12] MEDS: Collagenase 250 MG/GM OINT* 30 GM TOPICAL SCH (10:37)
[2018-04-12] MEDS: Metoprolol Succinate XL TAB* 50 MG PO SCH (10:37)
[2018-04-12] MEDS: DOXYcycline CAP(*) 100 MG PO SCH ×2 (10:37→22:31)
[2018-04-12] MEDS: Gabapentin CAP(*) 100 MG PO SCH ×3 (10:38→19:59)
[2018-04-12] MEDS: Ascorbic Acid TAB* 500 MG PO SCH (10:38)
[2018-04-12] MEDS: Cholecalciferol TAB* 1000 UNITS PO SCH (10:39)
[2018-04-12] MEDS: OLANzapine TAB*ODT* 5 MG PO SCH ×2 (10:39→20:09)
[2018-04-12] MEDS: Nystatin TOP POWDER* 15 GM BTL TOPICAL SCH ×2 (10:40→22:33)
--- NOTE | 2018-04-12 12:59 | CONSULT ---
Identification - Patient Identification Reason for Psychiatric Consultation: Suicidal Ideation -: Patient is a 52 year old, M admitted on 03/29/18. - MHU Identification Employment Status: Disabled Hx Psychiatric Hospitalization: Yes History - Objective HPI: Gabriel is in great spirits today and continues to deny SI. Nursing reports indicate that he is much more adherent with treatment and he expresses remorse for some of his behaviors earlier this week. "I think I'd like to be referred to some place that specializes in paraplegics. I'd like to be a peer counselor. I think I'd be good at that." He indicates that his mood and appetite are improving. Exam Appearance: Thin Framed Hygiene: Normal Grooming: Fairly Well Kept Psychomotor Activities: Normal Exhibits Abnormal Movement: No Attitude and Relatedness: Cooperative Eye Contact: Good - Speech Quality: Unpressured Latencies: Normal Quantity: Appropriate Patient's Decription of Mood: "Good" Observed Affect: Good Affect Consistent with: Euthymia Patient's Thought Process: Coherent Thought Content: No Passive Wish, No Suicidal Planning, No Homicidal Ideation, No Paranoid Ideation Experiencing Hallucinations: No, Sensorium is Clear Type of Hallucinations: Visual: No, Auditory: No, Command: No Level of Consciousness: Alert Orientation: Yes Intact, Yes Orientated to Time, Yes Orientated to Place, Yes Orientated to Person Impulse Control: Tenuous Insight and Judgement: Fair Impression - Impression Clinical Impression: 52 y.o. , white male with paraplegia, arrives on 9.41 from [facility] following a suicidal gesture in which he tied a sheet around his neck and motioned to hang himself. His hospital course has been complicated by mood dysregulation, manipulative behavior and uncooperativity at times. Inpatient DSM-V Dx: F31.9 Merits Inpatient Hospitalization: No Problem List - MHU Problems Type of Problem: Attitude and Relatedness Status of Problem: Resolved Plan - Treatment Plan Treatment Plan: The patient appears to be benefitting from olanzapine 5mg PO BID in terms of improved mood and appetite. He denies suicidal ideation and reports that he is willing to work with the team to move his care forward and seek post-discharge placement in [place], which is his preferred community. This clinician will return to service on Sunday, April 15 and follow up then. He continues to lack capacity to make informed medical decisions. Psychiatry will continue to follow. Continued Medication Management: Start Medication Medications: Current Medications Acetaminophen (Tylenol Tab*) 650 mg PO Q4H PRN PRN Reason: FEVER/PAIN Last Admin: 04/01/18 05:49 Dose: 650 mg Al Hydrox/Mg Hydrox/Simethicone (Maalox Plus*) 30 ml PO Q6H PRN PRN Reason: INDIGESTION Albuterol (Ventolin 2.5 Mg/3 Ml Neb.Dayami*) 2.5 mg INH [id number] AWAKE PRN PRN Reason: sob/wheezing Ascorbic Acid (Vitamin C Tab*) 1,000 mg PO DAILY [facility] Last Admin: 04/12/18 10:38 Dose: 1,000 mg Atorvastatin Calcium (Lipitor*) 10 mg PO 2100 [facility] Last Admin: 04/11/18 21:07 Dose: 10 mg Capsaicin (Zostrix 0.025% Cream*) 1 applic TOPICAL BID PRN PRN Reason: pain Last Admin: 04/08/18 04:48 Dose: 1 applic Cholecalciferol (Vitamin D Tab*) 1,000 units PO DAILY [facility] Last Admin: 04/12/18 10:39 Dose: 1,000 units Collagenase (Santyl 250 Mg/Gm Oint*) 1 applic TOPICAL DAILY [facility] Last Admin: 04/12/18 10:37 Dose: 1 applic Diphenhydramine HCl (Benadryl Po*) 25 mg PO Q6H PRN PRN Reason: ITCHING Last Admin: 04/02/18 04:05 Dose: 25 mg Docusate Sodium (Colace Cap*) 100 mg PO BID PRN PRN Reason: CONSTIPATION Last Admin: 04/07/18 10:09 Dose: 100 mg Doxycycline Hyclate (Vibramycin Cap(*)) 100 mg PO BID [facility] Stop: 04/13/18 20:59 Last Admin: 04/12/18 10:37 Dose: 100 mg Famotidine (Pepcid Tab*) 20 mg PO BID PRN PRN Reason: HEARTBURN Last Admin: 04/06/18 15:19 Dose: 20 mg Gabapentin (Neurontin Cap(*)) 100 mg PO TID [facility] Last Admin: 04/12/18 10:38 Dose: Not Given Heparin Sodium (Porcine) (Heparin Flush Picc/Ml/Cvc(*)) 1 ml FLUSH 0600,1800 [facility]; Protocol Last Admin: 04/12/18 05:07 Dose: Not Given Heparin Sodium (Porcine) (Heparin Vial(*)) 5,000 units SUBCUT Q8HR [facility] Last Admin: 04/12/18 05:07 Dose: Not Given Magnesium Hydroxide (Milk Of Magnesia Liq*) 30 ml PO Q4H PRN PRN Reason: CONSTIPATION Melatonin (Melatonin) 3 mg PO BEDTIME PRN; Protocol PRN Reason: SLEEP Metoprolol Succinate (Toprol Xl Tab*) 50 mg PO DAILY [facility] Last Admin: 04/12/18 10:37 Dose: Not Given Morphine Sulfate (Morphine Oral.Soln 10 Mg*) 5 mg PO Q6H PRN PRN Reason: PAIN Last Admin: 04/12/18 05:11 Dose: 5 mg Nystatin (Nystatin Top Powder*) 1 applic TOPICAL BID [facility] Stop: 04/25/18 20:59 Last Admin: 04/12/18 10:40 Dose: 1 applic Olanzapine (Zyprexa * Tab Odt) 5 mg PO BID [facility] Last Admin: 04/12/18 10:39 Dose: 5 mg Olanzapine (Zyprexa Im (Nf)) 5 mg IM BID PRN; Protocol PRN Reason: ANXIETY Ondansetron HCl (Zofran Inj*) 4 mg IV Q4H PRN PRN Reason: NAUSEA/VOMITING Polyethylene Glycol/Electrolytes (Miralax*) 17 gm PO DAILY PRN PRN Reason: CONSTIPATION Last Admin: 04/05/18 13:42 Dose: 17 gm Tizanidine HCl (Zanaflex Tab*) 4 mg PO QID PRN PRN Reason: SPASMS Last Admin: 04/12/18 05:13 Dose: 4 mg
--- NOTE | 2018-04-12 16:13 | PN ---
Subjective Date of Service: 04/12/18 Interval History: Pt seen and examined. Meds and labs reviewed. CC: N/A ROS: Denied CHEN/dizziness, F/C, N/V, CP, SOB, increased cough, sputum production , abd pain, diarrhea, constipation, dysuria, myalgias, arthralgias, throat pain , and new skin lesions. The rest of the 14 point ROS are unremarkable. PHYSICAL EXAM: GEN APPEARANCE: Awake, not in acute distress HEENT: NC/AT, PERRLA, moist oral mucosa, (-) throat erythema NECK: Soft, supple, (-) cervical LAD, (-)JVD HEART: S1S2 WNL, RRR, No MRG CHEST: CTA, BL, GAE, No W/R/R ABD: Soft, ND/NT, NABS 4x Q EXT: No C/C/E SKIN: Warm to touch PSYCH: No active psychosis, hallucinations, depression, SI/HI Objective Active Medications: Acetaminophen (Tylenol Tab*) 650 mg PO Q4H PRN PRN Reason: FEVER/PAIN Last Admin: 04/01/18 05:49 Dose: 650 mg Al Hydrox/Mg Hydrox/Simethicone (Maalox Plus*) 30 ml PO Q6H PRN PRN Reason: INDIGESTION Albuterol (Ventolin 2.5 Mg/3 Ml Neb.Dyaami*) 2.5 mg INH [id number] AWAKE PRN PRN Reason: sob/wheezing Ascorbic Acid (Vitamin C Tab*) 1,000 mg PO DAILY [facility] Last Admin: 04/12/18 10:38 Dose: 1,000 mg Atorvastatin Calcium (Lipitor*) 10 mg PO 2100 [facility] Last Admin: 04/11/18 21:07 Dose: 10 mg Capsaicin (Zostrix 0.025% Cream*) 1 applic TOPICAL BID PRN PRN Reason: pain Last Admin: 04/08/18 04:48 Dose: 1 applic Cholecalciferol (Vitamin D Tab*) 1,000 units PO DAILY [facility] Last Admin: 04/12/18 10:39 Dose: 1,000 units Collagenase (Santyl 250 Mg/Gm Oint*) 1 applic TOPICAL DAILY [facility] Last Admin: 04/12/18 10:37 Dose: 1 applic Diphenhydramine HCl (Benadryl Po*) 25 mg PO Q6H PRN PRN Reason: ITCHING Last Admin: 04/02/18 04:05 Dose: 25 mg Docusate Sodium (Colace Cap*) 100 mg PO BID PRN PRN Reason: CONSTIPATION Last Admin: 04/07/18 10:09 Dose: 100 mg Doxycycline Hyclate (Vibramycin Cap(*)) 100 mg PO BID [facility] Stop: 04/13/18 20:59 Last Admin: 04/12/18 10:37 Dose: 100 mg Famotidine (Pepcid Tab*) 20 mg PO BID PRN PRN Reason: HEARTBURN Last Admin: 04/06/18 15:19 Dose: 20 mg Gabapentin (Neurontin Cap(*)) 100 mg PO TID [facility] Last Admin: 04/12/18 13:02 Dose: Not Given Heparin Sodium (Porcine) (Heparin Flush Picc/Ml/Cvc(*)) 1 ml FLUSH 0600,1800 [facility]; Protocol Last Admin: 04/12/18 05:07 Dose: Not Given Heparin Sodium (Porcine) (Heparin Vial(*)) 5,000 units SUBCUT Q8HR [facility] Last Admin: 04/12/18 14:43 Dose: Not Given Magnesium Hydroxide (Milk Of Magnesia Liq*) 30 ml PO Q4H PRN PRN Reason: CONSTIPATION Melatonin (Melatonin) 3 mg PO BEDTIME PRN; Protocol PRN Reason: SLEEP Metoprolol Succinate (Toprol Xl Tab*) 50 mg PO DAILY [facility] Last Admin: 04/12/18 10:37 Dose: Not Given Morphine Sulfate (Morphine Oral.Soln 10 Mg*) 5 mg PO Q6H PRN PRN Reason: PAIN Last Admin: 04/12/18 05:11 Dose: 5 mg Nystatin (Nystatin Top Powder*) 1 applic TOPICAL BID [facility] Stop: 04/25/18 20:59 Last Admin: 04/12/18 10:40 Dose: 1 applic Olanzapine (Zyprexa * Tab Odt) 5 mg PO BID [facility] Last Admin: 04/12/18 10:39 Dose: 5 mg Olanzapine (Zyprexa Im (Nf)) 5 mg IM BID PRN; Protocol PRN Reason: ANXIETY Ondansetron HCl (Zofran Inj*) 4 mg IV Q4H PRN PRN Reason: NAUSEA/VOMITING Polyethylene Glycol/Electrolytes (Miralax*) 17 gm PO DAILY PRN PRN Reason: CONSTIPATION Last Admin: 04/05/18 13:42 Dose: 17 gm Tizanidine HCl (Zanaflex Tab*) 4 mg PO QID PRN PRN Reason: SPASMS Last Admin: 04/12/18 05:13 Dose: 4 mg Vital Signs - 8 hr 04/12/18 08:18 Temperature 98.1 F Pulse Rate 121 Respiratory 18 Rate Blood Pressure 97/57 (mmHg) O2 Sat by Pulse 100 Oximetry Oxygen Devices in Use Now: None - Nutrition: Malnutrition Diagnosis/Plan Malnutrition Assessment by Registered Dietitian: Malnutrition Assessment Clinical Characteristics Acute,Severe Malnutrition Assessment: - Moderate temporal muscle wasting and muscle Criteria wasting of upper extrmities - Underweight: BMI 17.0 - Pt report of 20% wt loss (severe) Malnutrition Assessment: - Will send whole milk daily at B, L, D (170 Interventions kcals, 8 grams protein per serving) - Will send double protein portions at B, L, D Malnutrition Assessment: Goals 1. Intake will promote weight repletion w/o additional loss of lean body mass - Goal: > 75% intake of meals 2. Intake will promote wound healing w/o additional pressure related skin breakdown Result Diagrams: 04/12/18 06:57 04/12/18 06:57 Microbiology and Other Data: Microbiology 03/29/18 22:47 Nasal Screen MRSA (PCR) - Final Nasal Mrsa Detected Assess/Plan/Problems-Billing Assessment: Mr. 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 Also being followed by [facility] psychiatrist. - Patient Problems (1) Suicide attempt Current Visit: Yes Status: Acute Comment: -Appreciate psych re-eval; d/w Dr. Romano today. Per Dr. Romano, pt lacks capacity to decide for himself and will need to be placed but is stable regarding SI/HI that will not need [facility] stay -Currently denies SI -Continue Olanzapine PO BID (2) Hypertension Current Visit: Yes Status: Acute Code(s): I10 - ESSENTIAL (PRIMARY) HYPERTENSION SNOMED Code(s): 08442941 Comment: -Continue Home lisinopril, metoprolol, however, intermittently refuses VS and meds to be taken (3) Osteomyelitis Current Visit: Yes Status: Acute Code(s): M86.9 - OSTEOMYELITIS, UNSPECIFIED SNOMED Code(s): 98265191 Comment: - From decubitus ulcers, was followed at [facility] - D/Cd Vancomycin since PICC line removed and pt not compliant - Placed on doxycycline which he is also refusing - Wound care with santyl and guaze, but patient is also refusing basic wound care and hygeine - On [place] mattress (4) Paraplegia Current Visit: Yes Status: Acute Code(s): G82.20 - PARAPLEGIA, UNSPECIFIED SNOMED Code(s): 15659416 Comment: - Hx of CVA with DINKEY [employer] shunt that left him paralyzed (5) Protein-calorie malnutrition, severe Current Visit: Yes Status: Acute Code(s): E43 - UNSPECIFIED SEVERE PROTEIN- CALORIE MALNUTRITION SNOMED Code(s): 981588897 Comment: - Prealbumin 12 - BMI 17 - Pt reports 20% weight loss - RD following, however patient is stating he is on a hunger strike and is refusing to eat (6) DVT prophylaxis Current Visit: Yes Status: Acute Code(s): KOH7458 - SNOMED Code(s): 757675605 Comment: - Heparin SQ Status and Disposition: -Placement pending due to lack of capacity to care for himself -Denies any current SI/HI
[2018-04-12] MEDS: Famotidine TAB* 20 MG PO PRN (16:32)
[2018-04-12] MEDS: Atorvastatin* 10 MG TAB PO SCH (22:31)
[2018-04-13] MEDS: Heparin VIAL(*) 5000 UNITS/ML VIAL (FIVE THOUSAND) SUBCUT SCH ×4 (05:23→21:27)
[2018-04-13] MEDS: Cholecalciferol TAB* 1000 UNITS PO SCH (09:36)
[2018-04-13] MEDS: Ascorbic Acid TAB* 500 MG PO SCH (09:36)
[2018-04-13] MEDS: Metoprolol Succinate XL TAB* 50 MG PO SCH (09:36)
[2018-04-13] MEDS: DOXYcycline CAP(*) 100 MG PO SCH (09:37)
[2018-04-13] MEDS: OLANzapine TAB*ODT* 5 MG PO SCH ×2 (09:37→21:27)
[2018-04-13] MEDS: Gabapentin CAP(*) 100 MG PO SCH ×3 (09:38→21:26)
[2018-04-13] MEDS: tiZANidine TAB* 2 MG PO PRN (09:41)
[2018-04-13] MEDS: Nystatin TOP POWDER* 15 GM BTL TOPICAL SCH (09:42)
[2018-04-13] MEDS ORDERED: Magnesium Sulf 4 GM/100 ML IV* 4,000 MG/100 ML BAG IVPB ONE (10:00)
[2018-04-13] MEDS: Magnesium Oxide TAB* 400 MG PO SCH ×2 (14:24→21:27)
[2018-04-13] MEDS: Collagenase 250 MG/GM OINT* 30 GM TOPICAL SCH (14:31)
[2018-04-13] MEDS: Baclofen TAB* 10 MG PO SCH ×2 (16:41→22:30)
--- NOTE | 2018-04-13 16:49 | PN ---
Subjective Date of Service: 04/13/18 Interval History: Pt seen and examined. Meds and labs reviewed. CC: Back spasms ROS: Denied CHEN/dizziness, F/C, N/V, CP, SOB, increased cough, sputum production , abd pain, diarrhea, constipation, dysuria, arthralgias, throat pain, and new skin lesions. The rest of the 14 point ROS are unremarkable. PHYSICAL EXAM: GEN APPEARANCE: Awake, not in acute distress HEENT: NC/AT, PERRLA, moist oral mucosa, (-) throat erythema NECK: Soft, supple, (-) cervical LAD, (-)JVD HEART: S1S2 WNL, RRR, No MRG CHEST: CTA, BL, GAE, No W/R/R ABD: Soft, ND/NT, NABS 4x Q EXT: No C/C/E SKIN: Warm to touch PSYCH: No active psychosis, hallucinations, depression, SI/HI Objective Active Medications: Acetaminophen (Tylenol Tab*) 650 mg PO Q4H PRN PRN Reason: FEVER/PAIN Last Admin: 04/01/18 05:49 Dose: 650 mg Al Hydrox/Mg Hydrox/Simethicone (Maalox Plus*) 30 ml PO Q6H PRN PRN Reason: INDIGESTION Albuterol (Ventolin 2.5 Mg/3 Ml Neb.Dayami*) 2.5 mg INH [id number] AWAKE PRN PRN Reason: sob/wheezing Ascorbic Acid (Vitamin C Tab*) 1,000 mg PO DAILY [facility] Last Admin: 04/13/18 09:36 Dose: 1,000 mg Atorvastatin Calcium (Lipitor*) 10 mg PO 2100 [facility] Last Admin: 04/12/18 22:31 Dose: 10 mg Baclofen (Lioresal Tab*) 10 mg PO TID [facility] Last Admin: 04/13/18 16:41 Dose: Not Given Capsaicin (Zostrix 0.025% Cream*) 1 applic TOPICAL BID PRN PRN Reason: pain Last Admin: 04/08/18 04:48 Dose: 1 applic Cholecalciferol (Vitamin D Tab*) 1,000 units PO DAILY [facility] Last Admin: 04/13/18 09:36 Dose: 1,000 units Collagenase (Santyl 250 Mg/Gm Oint*) 1 applic TOPICAL DAILY [facility] Last Admin: 04/13/18 14:31 Dose: 1 applic Diphenhydramine HCl (Benadryl Po*) 25 mg PO Q6H PRN PRN Reason: ITCHING Last Admin: 04/02/18 04:05 Dose: 25 mg Docusate Sodium (Colace Cap*) 100 mg PO BID PRN PRN Reason: CONSTIPATION Last Admin: 04/07/18 10:09 Dose: 100 mg Doxycycline Hyclate (Vibramycin Cap(*)) 100 mg PO BID [facility] Stop: 04/13/18 20:59 Last Admin: 04/13/18 09:37 Dose: 100 mg Famotidine (Pepcid Tab*) 20 mg PO BID PRN PRN Reason: HEARTBURN Last Admin: 04/12/18 16:32 Dose: 20 mg Gabapentin (Neurontin Cap(*)) 100 mg PO TID [facility] Last Admin: 04/13/18 13:50 Dose: Not Given Heparin Sodium (Porcine) (Heparin Flush Picc/Ml/Cvc(*)) 1 ml FLUSH 0600,1800 [facility]; Protocol Last Admin: 04/13/18 05:24 Dose: Not Given Heparin Sodium (Porcine) (Heparin Vial(*)) 5,000 units SUBCUT Q8HR [facility] Last Admin: 04/13/18 14:25 Dose: 5,000 units Magnesium Hydroxide (Milk Of Magnesia Liq*) 30 ml PO Q4H PRN PRN Reason: CONSTIPATION Magnesium Oxide (Magox 400 Tab*) 400 mg PO TID [facility] Stop: 04/13/18 21:01 Last Admin: 04/13/18 14:24 Dose: 400 mg Melatonin (Melatonin) 3 mg PO BEDTIME PRN; Protocol PRN Reason: SLEEP Metoprolol Succinate (Toprol Xl Tab*) 50 mg PO DAILY [facility] Last Admin: 04/13/18 09:36 Dose: 50 mg Nystatin (Nystatin Top Powder*) 1 applic TOPICAL BID [facility] Stop: 04/25/18 20:59 Last Admin: 04/13/18 09:42 Dose: 1 applic Olanzapine (Zyprexa * Tab Odt) 5 mg PO BID [facility] Last Admin: 04/13/18 09:37 Dose: 5 mg Olanzapine (Zyprexa Im (Nf)) 5 mg IM BID PRN; Protocol PRN Reason: ANXIETY Ondansetron HCl (Zofran Inj*) 4 mg IV Q4H PRN PRN Reason: NAUSEA/VOMITING Polyethylene Glycol/Electrolytes (Miralax*) 17 gm PO DAILY PRN PRN Reason: CONSTIPATION Last Admin: 04/05/18 13:42 Dose: 17 gm Tizanidine HCl (Zanaflex Tab*) 4 mg PO QID PRN PRN Reason: SPASMS Last Admin: 04/13/18 09:41 Dose: 4 mg Vital Signs - 8 hr 04/13/18 14:41 Respiratory 18 Rate Oxygen Devices in Use Now: None - Nutrition: Malnutrition Diagnosis/Plan Malnutrition Assessment by Registered Dietitian: Malnutrition Assessment Clinical Characteristics Acute,Severe Malnutrition Assessment: - Moderate temporal muscle wasting and muscle Criteria wasting of upper extrmities - Underweight: BMI 17.0 - Pt report of 20% wt loss (severe) Malnutrition Assessment: - Will send whole milk daily at B, L, D (170 Interventions kcals, 8 grams protein per serving) - Will send double protein portions at B, L, D Malnutrition Assessment: Goals 1. Intake will promote weight repletion w/o additional loss of lean body mass - Goal: > 75% intake of meals 2. Intake will promote wound healing w/o additional pressure related skin breakdown Result Diagrams: 04/12/18 06:57 04/12/18 06:57 Microbiology and Other Data: Microbiology 03/29/18 22:47 Nasal Screen MRSA (PCR) - Final Nasal Mrsa Detected Assess/Plan/Problems-Billing Assessment: Mr. 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 Also being followed by [facility] psychiatrist. - Patient Problems (1) Suicide attempt Current Visit: Yes Status: Acute Comment: -Per Dr. Romano, pt lacks capacity to decide for himself and will need to be placed but is stable regarding SI/HI that will not need [facility] stay -Currently denies SI -Continue Olanzapine PO BID (2) Back muscle spasm Current Visit: Yes Status: Acute Code(s): M62.830 - MUSCLE SPASM OF BACK SNOMED Code(s): 959312603 Comment: -Placed pt on Baclofen (3) Hypertension Current Visit: Yes Status: Acute Code(s): I10 - ESSENTIAL (PRIMARY) HYPERTENSION SNOMED Code(s): 19575556 Comment: -Continue Home lisinopril, metoprolol, however, intermittently refuses VS and meds to be taken (4) Osteomyelitis Current Visit: Yes Status: Acute Code(s): M86.9 - OSTEOMYELITIS, UNSPECIFIED SNOMED Code(s): 48273339 Comment: - From decubitus ulcers, was followed at [facility] - D/Cd Vancomycin since PICC line removed and pt not compliant - Placed on doxycycline which he is also refusing - Wound care with santyl and guaze, but patient is also refusing basic wound care and hygeine - On Mukesh mattress (5) Paraplegia Current Visit: Yes Status: Acute Code(s): G82.20 - PARAPLEGIA, UNSPECIFIED SNOMED Code(s): 19638058 Comment: - Hx of CVA with CERTIFIED ORTHOTIC FITTER shunt that left him paralyzed (6) Protein-calorie malnutrition, severe Current Visit: Yes Status: Acute Code(s): E43 - UNSPECIFIED SEVERE PROTEIN- CALORIE MALNUTRITION SNOMED Code(s): 326595946 Comment: - Prealbumin 12 - BMI 17 - Pt reports 20% weight loss - RD following, however patient is stating he is on a hunger strike and is refusing to eat (7) DVT prophylaxis Current Visit: Yes Status: Acute Code(s): HSJ9660 - SNOMED Code(s): 251626203 Comment: - Heparin SQ Status and Disposition: -Placement pending due to lack of capacity to care for himself -Denies any current SI/HI
[2018-04-13] MEDS: Atorvastatin* 10 MG TAB PO SCH (21:27)
[2018-04-13] MEDS: Capsaicin 0.025% CREAM* 60 GM TOPICAL PRN (21:32)
[2018-04-13] MEDS ORDERED: Diazepam TAB(*) 5 MG PO ONE (22:10)
[2018-04-13] MEDS: Morphine ORAL CONCENTRATE* 5 MG/0.25 ML ORAL.SYRIN PO PRN (22:30)
[2018-04-14] MEDS: Nystatin TOP POWDER* 15 GM BTL TOPICAL SCH ×3 (00:18→21:54)
[2018-04-14] MEDS: Heparin VIAL(*) 5000 UNITS/ML VIAL (FIVE THOUSAND) SUBCUT SCH ×3 (05:58→22:49)
[2018-04-14] MEDS: Cholecalciferol TAB* 1000 UNITS PO SCH (08:16)
[2018-04-14] MEDS: OLANzapine TAB*ODT* 5 MG PO SCH ×2 (08:20→22:36)
[2018-04-14] MEDS: Metoprolol Succinate XL TAB* 50 MG PO SCH (08:21)
[2018-04-14] MEDS: Baclofen TAB* 10 MG PO SCH (08:21)
[2018-04-14] MEDS: Gabapentin CAP(*) 100 MG PO SCH ×3 (08:23→21:53)
[2018-04-14] MEDS: Ascorbic Acid TAB* 500 MG PO SCH (08:24)
--- NOTE | 2018-04-14 12:36 | PN ---
Subjective Date of Service: 04/14/18 Interval History: Pt seen and examined. Meds and labs reviewed. CC: Back spasms unchanged ROS: Denied CHEN/dizziness, F/C, N/V, CP, SOB, increased cough, sputum production , abd pain, diarrhea, constipation, dysuria, throat pain, and new skin lesions. The rest of the 14 point ROS are unremarkable. PHYSICAL EXAM: GEN APPEARANCE: Awake, not in acute distress HEENT: NC/AT, PERRLA, moist oral mucosa, (-) throat erythema NECK: Soft, supple, (-) cervical LAD, (-)JVD HEART: S1S2 WNL, RRR, No MRG CHEST: CTA, BL, GAE, No W/R/R ABD: Soft, ND/NT, NABS 4x Q EXT: No C/C/E SKIN: Warm to touch PSYCH: No active psychosis, hallucinations, depression, SI/HI Objective Active Medications: Acetaminophen (Tylenol Tab*) 650 mg PO Q4H PRN PRN Reason: FEVER/PAIN Last Admin: 04/01/18 05:49 Dose: 650 mg Al Hydrox/Mg Hydrox/Simethicone (Maalox Plus*) 30 ml PO Q6H PRN PRN Reason: INDIGESTION Albuterol (Ventolin 2.5 Mg/3 Ml Neb.Dayami*) 2.5 mg INH [id number] AWAKE PRN PRN Reason: sob/wheezing Ascorbic Acid (Vitamin C Tab*) 1,000 mg PO DAILY [facility] Last Admin: 04/14/18 08:24 Dose: 1,000 mg Atorvastatin Calcium (Lipitor*) 10 mg PO 2100 [facility] Last Admin: 04/13/18 21:27 Dose: 10 mg Baclofen (Lioresal Tab*) 30 mg PO TID [facility] Capsaicin (Zostrix 0.025% Cream*) 1 applic TOPICAL BID PRN PRN Reason: pain Last Admin: 04/13/18 21:32 Dose: 1 applic Cholecalciferol (Vitamin D Tab*) 1,000 units PO DAILY [facility] Last Admin: 04/14/18 08:16 Dose: 1,000 units Collagenase (Santyl 250 Mg/Gm Oint*) 1 applic TOPICAL DAILY [facility] Last Admin: 04/13/18 14:31 Dose: 1 applic Diphenhydramine HCl (Benadryl Po*) 25 mg PO Q6H PRN PRN Reason: ITCHING Last Admin: 04/02/18 04:05 Dose: 25 mg Docusate Sodium (Colace Cap*) 100 mg PO BID PRN PRN Reason: CONSTIPATION Last Admin: 04/07/18 10:09 Dose: 100 mg Doxycycline Hyclate (Vibramycin Cap(*)) 100 mg PO BID [facility] Famotidine (Pepcid Tab*) 20 mg PO BID PRN PRN Reason: HEARTBURN Last Admin: 04/12/18 16:32 Dose: 20 mg Gabapentin (Neurontin Cap(*)) 100 mg PO TID [facility] Last Admin: 04/14/18 08:23 Dose: Not Given Heparin Sodium (Porcine) (Heparin Vial(*)) 5,000 units SUBCUT Q8HR [facility] Last Admin: 04/14/18 05:58 Dose: Not Given Magnesium Hydroxide (Milk Of Magnesia Liq*) 30 ml PO Q4H PRN PRN Reason: CONSTIPATION Melatonin (Melatonin) 3 mg PO BEDTIME PRN; Protocol PRN Reason: SLEEP Metoprolol Succinate (Toprol Xl Tab*) 50 mg PO DAILY [facility] Last Admin: 04/14/18 08:21 Dose: 50 mg Morphine Sulfate (Morphine Oral Concentrate*) 5 mg PO Q8H PRN PRN Reason: PAIN Last Admin: 04/13/18 22:30 Dose: 5 mg Nystatin (Nystatin Top Powder*) 1 applic TOPICAL BID [facility] Stop: 04/25/18 20:59 Last Admin: 04/14/18 08:25 Dose: 1 applic Olanzapine (Zyprexa * Tab Odt) 5 mg PO BID [facility] Last Admin: 04/14/18 08:20 Dose: 5 mg Olanzapine (Zyprexa Im (Nf)) 5 mg IM BID PRN; Protocol PRN Reason: ANXIETY Ondansetron HCl (Zofran Inj*) 4 mg IV Q4H PRN PRN Reason: NAUSEA/VOMITING Polyethylene Glycol/Electrolytes (Miralax*) 17 gm PO DAILY PRN PRN Reason: CONSTIPATION Last Admin: 04/05/18 13:42 Dose: 17 gm Tizanidine HCl (Zanaflex Tab*) 4 mg PO QID PRN PRN Reason: SPASMS Last Admin: 04/13/18 09:41 Dose: 4 mg Vital Signs - 8 hr 04/14/18 07:39 Temperature 98.0 F Pulse Rate 121 Respiratory 18 Rate Blood Pressure 136/87 (mmHg) O2 Sat by Pulse 100 Oximetry Oxygen Devices in Use Now: None - Nutrition: Malnutrition Diagnosis/Plan Malnutrition Assessment by Registered Dietitian: Malnutrition Assessment Clinical Characteristics Acute,Severe Malnutrition Assessment: - Moderate temporal muscle wasting and muscle Criteria wasting of upper extrmities - Underweight: BMI 17.0 - Pt report of 20% wt loss (severe) Malnutrition Assessment: - Will send whole milk daily at B, L, D (170 Interventions kcals, 8 grams protein per serving) - Will send double protein portions at B, L, D Malnutrition Assessment: Goals 1. Intake will promote weight repletion w/o additional loss of lean body mass - Goal: > 75% intake of meals 2. Intake will promote wound healing w/o additional pressure related skin breakdown Result Diagrams: 04/12/18 06:57 04/12/18 06:57 Microbiology and Other Data: Microbiology 03/29/18 22:47 Nasal Screen MRSA (PCR) - Final Nasal Mrsa Detected Assess/Plan/Problems-Billing Assessment: Mr. 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 Also being followed by [facility] psychiatrist. - Patient Problems (1) Suicide attempt Current Visit: Yes Status: Acute Comment: -Per Dr. Romano, pt lacks capacity to decide for himself and will need to be placed but is stable regarding SI/HI that will not need [facility] stay -Currently denies SI -Continue Olanzapine PO BID (2) Back muscle spasm Current Visit: Yes Status: Acute Code(s): M62.830 - MUSCLE SPASM OF BACK SNOMED Code(s): 241022103 Comment: -Will increase Baclofen (3) Hypertension Current Visit: Yes Status: Acute Code(s): I10 - ESSENTIAL (PRIMARY) HYPERTENSION SNOMED Code(s): 02406618 Comment: -Continue Home lisinopril, metoprolol, however, intermittently refuses VS and meds to be taken (4) Osteomyelitis Current Visit: Yes Status: Acute Code(s): M86.9 - OSTEOMYELITIS, UNSPECIFIED SNOMED Code(s): 73595687 Comment: - From decubitus ulcers, was followed at [facility] - D/Cd Vancomycin since PICC line removed and pt not compliant - Placed on doxycycline for 4 days which he is also refusing intermittently--- will touch-base with ID in AM to see if he has completed course, but will re- order until clarified - Wound care with santyl and guaze, but patient is also refusing basic wound care and hygeine - On [place] mattress (5) Paraplegia Current Visit: Yes Status: Acute Code(s): G82.20 - PARAPLEGIA, UNSPECIFIED SNOMED Code(s): 81411636 Comment: - Hx of CVA with SMALL ORDER CUTTER shunt that left him paralyzed (6) Protein-calorie malnutrition, severe Current Visit: Yes Status: Acute Code(s): E43 - UNSPECIFIED SEVERE PROTEIN- CALORIE MALNUTRITION SNOMED Code(s): 428749073 Comment: - Prealbumin 12 - BMI 17 - Pt reports 20% weight loss - RD following, however patient is stating he is on a hunger strike and is refusing to eat (7) DVT prophylaxis Current Visit: Yes Status: Acute Code(s): TXP1152 - SNOMED Code(s): 724861615 Comment: - Heparin SQ Status and Disposition: -Placement pending due to lack of capacity to care for himself -Denies any current SI/HI
[2018-04-14] MEDS ORDERED: Baclofen TAB* 10 MG PO SCH (14:00)
[2018-04-14] MEDS: Acetaminophen TAB* 325 MG PO PRN (14:48)
[2018-04-14] MEDS: Collagenase 250 MG/GM OINT* 30 GM TOPICAL SCH (14:50)
[2018-04-14] MEDS: DOXYcycline CAP(*) 100 MG PO SCH (22:49)
[2018-04-14] MEDS: Atorvastatin* 10 MG TAB PO SCH (22:49)
[2018-04-15] MEDS: Heparin VIAL(*) 5000 UNITS/ML VIAL (FIVE THOUSAND) SUBCUT SCH ×3 (05:04→21:42)
[2018-04-15 07:43] LABS: ABS Basophils 0.1 10^3/ul (0-0.2); ABS Eosinophils 0.5 10^3/ul (0-0.6); ABS Lymphocytes 2.2 10^3/ul (1.0-4.8); ABS Monocytes 0.8 10^3/ul (0-0.8); ABS Neutrophils 8.3 10^3/ul (1.5-7.7); ABS Nucleated RBC 0 10^3/ul; Eosinophil % 3.9 % (0-6); Hematocrit 32 % (42-52); Hemoglobin 10.8 g/dl (14.0-18.0); Lymphocyte % 18.3 % (25-47); Mean Corpuscular HGB Conc 33 g/dl (31-36); Mean Corpuscular Hemoglobin 29 pg (27-31); Mean Corpuscular Volume 87 fL (80-94); Mean Platelet Volume 7.3 um3 (7.4-10.4); Nucleated Red Blood Cells % 0; Platelet Count 481 10^3/ul (150-450); Red Blood Count 3.73 10^6/ul (4.00-5.40); Red Cell Distribution Width 18 % (10.5-15); White Blood Count 11.9 10^3/ul (3.5-10.8)
[2018-04-15 08:02] LABS: EGFR Non-African American 86.4 (>60)
[2018-04-15] MEDS: OLANzapine TAB*ODT* 5 MG PO SCH ×2 (08:55→21:26)
[2018-04-15] MEDS: DOXYcycline CAP(*) 100 MG PO SCH ×2 (08:55→21:26)
[2018-04-15] MEDS ORDERED: Magnesium Oxide TAB* 400 MG PO ONE (08:57)
[2018-04-15] MEDS ORDERED: NS 0.9% 1000 ML* 400 ML IV SCH (09:00)
[2018-04-15] MEDS: tiZANidine TAB* 2 MG PO PRN (09:01)
[2018-04-15] MEDS: Gabapentin CAP(*) 100 MG PO SCH ×3 (09:02→21:27)
[2018-04-15] MEDS: Ascorbic Acid TAB* 500 MG PO SCH (09:02)
[2018-04-15] MEDS: Cholecalciferol TAB* 1000 UNITS PO SCH (09:02)
[2018-04-15] MEDS: Metoprolol Succinate XL TAB* 50 MG PO SCH (09:03)
[2018-04-15] MEDS ORDERED: Magnesium Oxide TAB* 400 MG ONE (09:05)
[2018-04-15] MEDS: Collagenase 250 MG/GM OINT* 30 GM TOPICAL SCH (13:00)
[2018-04-15] MEDS: Nystatin TOP POWDER* 15 GM BTL TOPICAL SCH ×2 (14:29→21:40)
--- NOTE | 2018-04-15 15:42 | PN ---
Subjective Date of Service: 04/15/18 Interval History: Pt seen and examined. Meds and labs reviewed. RN yesterday informed me that pt was sleepier late afternoon, but able to respond when prompted. Baclofen D/C d CC: N/A ROS: Denied CHEN/dizziness, F/C, N/V, CP, SOB, increased cough, sputum production , abd pain, diarrhea, constipation, dysuria, myalgias, arthralgias, throat pain , and new skin lesions. The rest of the 14 point ROS are unremarkable. PHYSICAL EXAM: GEN APPEARANCE: Awake, not in acute distress HEENT: NC/AT, PERRLA, moist oral mucosa, (-) throat erythema NECK: Soft, supple, (-) cervical LAD, (-)JVD HEART: S1S2 WNL, RRR, No MRG CHEST: CTA, BL, GAE, No W/R/R ABD: Soft, ND/NT, NABS 4x Q EXT: No C/C/E SKIN: Warm to touch PSYCH: No active psychosis, hallucinations, depression, SI/HI Objective Active Medications: Acetaminophen (Tylenol Tab*) 650 mg PO Q4H PRN PRN Reason: FEVER/PAIN Last Admin: 04/14/18 14:48 Dose: 325 mg Al Hydrox/Mg Hydrox/Simethicone (Maalox Plus*) 30 ml PO Q6H PRN PRN Reason: INDIGESTION Albuterol (Ventolin 2.5 Mg/3 Ml Neb.Dayami*) 2.5 mg INH [id number] AWAKE PRN PRN Reason: sob/wheezing Ascorbic Acid (Vitamin C Tab*) 1,000 mg PO DAILY [facility] Last Admin: 04/15/18 09:02 Dose: Not Given Atorvastatin Calcium (Lipitor*) 10 mg PO 2100 [facility] Last Admin: 04/14/18 22:49 Dose: Not Given Capsaicin (Zostrix 0.025% Cream*) 1 applic TOPICAL BID PRN PRN Reason: pain Last Admin: 04/13/18 21:32 Dose: 1 applic Cholecalciferol (Vitamin D Tab*) 1,000 units PO DAILY [facility] Last Admin: 04/15/18 09:02 Dose: Not Given Collagenase (Santyl 250 Mg/Gm Oint*) 1 applic TOPICAL DAILY [facility] Last Admin: 04/15/18 13:00 Dose: 1 applic Diphenhydramine HCl (Benadryl Po*) 25 mg PO Q6H PRN PRN Reason: ITCHING Last Admin: 04/02/18 04:05 Dose: 25 mg Docusate Sodium (Colace Cap*) 100 mg PO BID PRN PRN Reason: CONSTIPATION Last Admin: 04/07/18 10:09 Dose: 100 mg Doxycycline Hyclate (Vibramycin Cap(*)) 100 mg PO BID [facility] Last Admin: 04/15/18 08:55 Dose: 100 mg Famotidine (Pepcid Tab*) 20 mg PO BID PRN PRN Reason: HEARTBURN Last Admin: 04/12/18 16:32 Dose: 20 mg Gabapentin (Neurontin Cap(*)) 100 mg PO TID [facility] Last Admin: 04/15/18 15:11 Dose: Not Given Heparin Sodium (Porcine) (Heparin Vial(*)) 5,000 units SUBCUT Q8HR [facility] Last Admin: 04/15/18 15:09 Dose: 5,000 units Sodium Chloride (Ns 0.9% 1000 Ml*) 400 mls @ 100 mls/hr IV .FOR 4 HOURS [facility] Magnesium Hydroxide (Milk Of Magnesia Liq*) 30 ml PO Q4H PRN PRN Reason: CONSTIPATION Magnesium Oxide (Magox 400 Tab*) 400 mg PO DAILY [facility] Melatonin (Melatonin) 3 mg PO BEDTIME PRN; Protocol PRN Reason: SLEEP Metoprolol Succinate (Toprol Xl Tab*) 50 mg PO DAILY [facility] Last Admin: 04/15/18 09:03 Dose: 50 mg Morphine Sulfate (Morphine Oral Concentrate*) 5 mg PO Q8H PRN PRN Reason: PAIN Last Admin: 04/13/18 22:30 Dose: 5 mg Nystatin (Nystatin Top Powder*) 1 applic TOPICAL BID [facility] Stop: 04/25/18 20:59 Last Admin: 04/15/18 14:29 Dose: Not Given Olanzapine (Zyprexa * Tab Odt) 5 mg PO BID [facility] Last Admin: 04/15/18 08:55 Dose: 5 mg Olanzapine (Zyprexa Im (Nf)) 5 mg IM BID PRN; Protocol PRN Reason: ANXIETY Ondansetron HCl (Zofran Inj*) 4 mg IV Q4H PRN PRN Reason: NAUSEA/VOMITING Polyethylene Glycol/Electrolytes (Miralax*) 17 gm PO DAILY PRN PRN Reason: CONSTIPATION Last Admin: 04/05/18 13:42 Dose: 17 gm Tizanidine HCl (Zanaflex Tab*) 4 mg PO QID PRN PRN Reason: SPASMS Last Admin: 04/15/18 09:01 Dose: 4 mg Vital Signs - 8 hr 04/15/18 04/15/18 04/15/18 08:00 08:48 09:55 Temperature 98.4 F 97.7 F Pulse Rate 110 92 Respiratory 16 16 18 Rate Blood Pressure 109/74 141/72 (mmHg) O2 Sat by Pulse 99 97 Oximetry Oxygen Devices in Use Now: None - Nutrition: Malnutrition Diagnosis/Plan Malnutrition Assessment by Registered Dietitian: Malnutrition Assessment Clinical Characteristics Acute,Severe Malnutrition Assessment: - Moderate temporal muscle wasting and muscle Criteria wasting of upper extrmities - Underweight: BMI 17.0 - Pt report of 20% wt loss (severe) Malnutrition Assessment: - Will send whole milk daily at B, L, D (170 Interventions kcals, 8 grams protein per serving) - Will send double protein portions at B, L, D Malnutrition Assessment: Goals 1. Intake will promote weight repletion w/o additional loss of lean body mass - Goal: > 75% intake of meals 2. Intake will promote wound healing w/o additional pressure related skin breakdown Result Diagrams: 04/15/18 06:49 04/15/18 06:49 Microbiology and Other Data: Microbiology 03/29/18 22:47 Nasal Screen MRSA (PCR) - Final Nasal Mrsa Detected Assess/Plan/Problems-Billing Assessment: Mr. 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 Also being followed by [facility] psychiatrist. - Patient Problems (1) Suicide attempt Current Visit: Yes Status: Acute Comment: -Per Dr. Romano, pt lacks capacity to decide for himself and will need to be placed but is stable regarding SI/HI that will not need [facility] stay -Currently denies SI -Continue Olanzapine PO BID (2) Back muscle spasm Current Visit: Yes Status: Acute Code(s): M62.830 - MUSCLE SPASM OF BACK SNOMED Code(s): 745037757 Comment: -D/C Baclofen -Pt requests to be placed on Valium but given pt easily becomes somnolent with low dose Baclofen, I am not enthusiastic about starting him on this -Consider low dose Methocarbamol as an option if pt continues to complain of muscle spasm (3) Hypertension Current Visit: Yes Status: Acute Code(s): I10 - ESSENTIAL (PRIMARY) HYPERTENSION SNOMED Code(s): 55066045 Comment: -Continue Home lisinopril, metoprolol, however, intermittently refuses VS and meds to be taken (4) Osteomyelitis Current Visit: Yes Status: Acute Code(s): M86.9 - OSTEOMYELITIS, UNSPECIFIED SNOMED Code(s): 07313239 Comment: - From decubitus ulcers, was followed at [facility] - D/Cd Vancomycin since PICC line removed and pt not compliant - Placed on doxycycline for 4 days which he is also refusing intermittently--- will touch-base with ID in AM to see if he has completed course, but will re- order until clarified - Wound care with santyl and guaze, but patient is also refusing basic wound care and hygeine - On Mukesh mattress (5) Paraplegia Current Visit: Yes Status: Acute Code(s): G82.20 - PARAPLEGIA, UNSPECIFIED SNOMED Code(s): 93085645 Comment: - Hx of CVA with LICENSING REPRESENTATIVE shunt that left him paralyzed (6) Protein-calorie malnutrition, severe Current Visit: Yes Status: Acute Code(s): E43 - UNSPECIFIED SEVERE PROTEIN- CALORIE MALNUTRITION SNOMED Code(s): 588406008 Comment: - Prealbumin 12 - BMI 17 - Pt reports 20% weight loss - RD following, however patient is stating he is on a hunger strike and is refusing to eat (7) DVT prophylaxis Current Visit: Yes Status: Acute Code(s): KXH7320 - SNOMED Code(s): 191102099 Comment: - Heparin SQ Status and Disposition: -Placement pending due to lack of capacity to care for himself -Denies any current SI/HI
--- NOTE | 2018-04-15 16:46 | CONSULT ---
Identification - Patient Identification Reason for Psychiatric Consultation: Suicidal Ideation -: Patient is a 52 year old, M admitted on 03/29/18. - MHU Identification Employment Status: Disabled Hx Psychiatric Hospitalization: Yes History - Objective HPI: Gabriel has done well over the weekend. Notes indicate that he is adherent with most medications and allowing staff to assist him when necessary. He remains adamant about not returning to [facility], accusing them of neglect. "I was laying in my own feces and urine soaked sheets. Everytime I'd ask someone for help, they'd say 'Oh yes, we'll be right with you.' I might as well be if you send me back there." He denies formal SI, stating that he would like to be placed in a nursing facility specific to patients with paraplegia. "That way I could be a peer advocate and bring some meaning to my life." He states there are facilities such as this in [place] and [place] that he was researching prior to hospitalization. He presents as hypomanic and overtalkative on exam. Exam Appearance: Thin Framed Hygiene: Normal Grooming: Fairly Well Kept Psychomotor Activities: Normal Exhibits Abnormal Movement: No Attitude and Relatedness: Cooperative Eye Contact: Good - Speech Quality: Unpressured Latencies: Short Quantity: Copious Patient's Decription of Mood: "Good" Observed Affect: Expansive Affect Consistent with: Euthymia Patient's Thought Process: Coherent Thought Content: No Passive Wish, No Suicidal Planning, No Homicidal Ideation, No Paranoid Ideation Experiencing Hallucinations: No, Sensorium is Clear Type of Hallucinations: Visual: No, Auditory: No, Command: No Level of Consciousness: Alert Orientation: Yes Intact, Yes Orientated to Time, Yes Orientated to Place, Yes Orientated to Person Impulse Control: Tenuous Insight and Judgement: Fair Impression - Impression Clinical Impression: 52 y.o. , white male with paraplegia, arrives on 9.41 from [facility] following a suicidal gesture in which he tied a sheet around his neck and motioned to hang himself. His hospital course has been complicated by mood dysregulation, manipulative behavior and uncooperativity at times. Inpatient DSM-V Dx: F31.9 Merits Inpatient Hospitalization: No Problem List - MHU Problems Type of Problem: Mood Status of Problem: Active Plan - Treatment Plan Treatment Plan: The patient appears to be benefitting from olanzapine 5mg PO BID in terms of improved mood and appetite. Due to hypomania, we will increase the dose to 7.5mg PO BID. He denies suicidal ideation and reports that he is willing to work with the team to move his care forward and seek post-discharge placement, preferably in a facility that specializes in care for paraplegics. He continues to lack capacity to make informed medical decisions. Psychiatry will continue to follow. Continued Medication Management: Start Medication Medications: Current Medications Acetaminophen (Tylenol Tab*) 650 mg PO Q4H PRN PRN Reason: FEVER/PAIN Last Admin: 04/14/18 14:48 Dose: 325 mg Al Hydrox/Mg Hydrox/Simethicone (Maalox Plus*) 30 ml PO Q6H PRN PRN Reason: INDIGESTION Albuterol (Ventolin 2.5 Mg/3 Ml Neb.Dayami*) 2.5 mg INH [id number] AWAKE PRN PRN Reason: sob/wheezing Ascorbic Acid (Vitamin C Tab*) 1,000 mg PO DAILY [facility] Last Admin: 04/15/18 09:02 Dose: Not Given Atorvastatin Calcium (Lipitor*) 10 mg PO 2100 [facility] Last Admin: 04/14/18 22:49 Dose: Not Given Capsaicin (Zostrix 0.025% Cream*) 1 applic TOPICAL BID PRN PRN Reason: pain Last Admin: 04/13/18 21:32 Dose: 1 applic Cholecalciferol (Vitamin D Tab*) 1,000 units PO DAILY [facility] Last Admin: 04/15/18 09:02 Dose: Not Given Collagenase (Santyl 250 Mg/Gm Oint*) 1 applic TOPICAL DAILY [facility] Last Admin: 04/15/18 13:00 Dose: 1 applic Diphenhydramine HCl (Benadryl Po*) 25 mg PO Q6H PRN PRN Reason: ITCHING Last Admin: 04/02/18 04:05 Dose: 25 mg Docusate Sodium (Colace Cap*) 100 mg PO BID PRN PRN Reason: CONSTIPATION Last Admin: 04/07/18 10:09 Dose: 100 mg Doxycycline Hyclate (Vibramycin Cap(*)) 100 mg PO BID [facility] Last Admin: 04/15/18 08:55 Dose: 100 mg Famotidine (Pepcid Tab*) 20 mg PO BID PRN PRN Reason: HEARTBURN Last Admin: 04/12/18 16:32 Dose: 20 mg Gabapentin (Neurontin Cap(*)) 100 mg PO TID [facility] Last Admin: 04/15/18 15:11 Dose: Not Given Heparin Sodium (Porcine) (Heparin Vial(*)) 5,000 units SUBCUT Q8HR [facility] Last Admin: 04/15/18 15:09 Dose: 5,000 units Sodium Chloride (Ns 0.9% 1000 Ml*) 400 mls @ 100 mls/hr IV .FOR 4 HOURS [facility] Magnesium Hydroxide (Milk Of Magnesia Liq*) 30 ml PO Q4H PRN PRN Reason: CONSTIPATION Magnesium Oxide (Magox 400 Tab*) 400 mg PO DAILY [facility] Melatonin (Melatonin) 3 mg PO BEDTIME PRN; Protocol PRN Reason: SLEEP Metoprolol Succinate (Toprol Xl Tab*) 50 mg PO DAILY [facility] Last Admin: 04/15/18 09:03 Dose: 50 mg Morphine Sulfate (Morphine Oral Concentrate*) 5 mg PO Q8H PRN PRN Reason: PAIN Last Admin: 04/13/18 22:30 Dose: 5 mg Nystatin (Nystatin Top Powder*) 1 applic TOPICAL BID [facility] Stop: 04/25/18 20:59 Last Admin: 04/15/18 14:29 Dose: Not Given Olanzapine (Zyprexa Im (Nf)) 7.5 mg IM BID PRN; Protocol PRN Reason: ANXIETY Olanzapine (Zyprexa * Tab Odt) 7.5 mg PO BID [facility] Ondansetron HCl (Zofran Inj*) 4 mg IV Q4H PRN PRN Reason: NAUSEA/VOMITING Polyethylene Glycol/Electrolytes (Miralax*) 17 gm PO DAILY PRN PRN Reason: CONSTIPATION Last Admin: 04/05/18 13:42 Dose: 17 gm Tizanidine HCl (Zanaflex Tab*) 4 mg PO QID PRN PRN Reason: SPASMS Last Admin: 04/15/18 09:01 Dose: 4 mg - Discharge Plan Discharge Plan: Outpatient Follow Up
[2018-04-15] MEDS: Famotidine TAB* 20 MG PO PRN (21:26)
[2018-04-15] MEDS: Atorvastatin* 10 MG TAB PO SCH (21:27)
[2018-04-16] MEDS: Morphine ORAL CONCENTRATE* 5 MG/0.25 ML ORAL.SYRIN PO PRN ×2 (03:49→21:23)
[2018-04-16] MEDS: Heparin VIAL(*) 5000 UNITS/ML VIAL (FIVE THOUSAND) SUBCUT SCH ×3 (05:48→21:19)
[2018-04-16 07:01] LABS: Hematocrit 31 % (42-52); Hemoglobin 10.2 g/dl (14.0-18.0); Mean Corpuscular HGB Conc 33 g/dl (31-36); Mean Corpuscular Hemoglobin 29 pg (27-31); Mean Corpuscular Volume 88 fL (80-94); Mean Platelet Volume 7.1 um3 (7.4-10.4); Platelet Count 389 10^3/ul (150-450); Red Blood Count 3.51 10^6/ul (4.00-5.40); Red Cell Distribution Width 19 % (10.5-15); White Blood Count 10.5 10^3/ul (3.5-10.8)
[2018-04-16 07:23] LABS: EGFR Non-African American 94.7 (>60)
[2018-04-16] MEDS: Collagenase 250 MG/GM OINT* 30 GM TOPICAL SCH (07:48)
[2018-04-16] MEDS: Nystatin TOP POWDER* 15 GM BTL TOPICAL SCH ×2 (07:49→21:20)
[2018-04-16] MEDS: Capsaicin 0.025% CREAM* 60 GM TOPICAL PRN (07:49)
[2018-04-16] MEDS: DOXYcycline CAP(*) 100 MG PO SCH ×2 (08:40→21:18)
[2018-04-16] MEDS: tiZANidine TAB* 2 MG PO PRN (08:40)
[2018-04-16] MEDS: OLANzapine TAB*ODT* 5 MG PO SCH ×2 (08:41→21:28)
[2018-04-16] MEDS: Metoprolol Succinate XL TAB* 50 MG PO SCH (08:41)
[2018-04-16] MEDS: Magnesium Oxide TAB* 400 MG PO SCH (08:44)
[2018-04-16] MEDS: Cholecalciferol TAB* 1000 UNITS PO SCH (08:44)
[2018-04-16] MEDS: Ascorbic Acid TAB* 500 MG PO SCH (08:44)
[2018-04-16] MEDS: Gabapentin CAP(*) 100 MG PO SCH ×4 (08:45→21:30)
--- NOTE | 2018-04-16 13:03 | CONSULT ---
Identification - Patient Identification Reason for Psychiatric Consultation: Suicidal Ideation -: Patient is a 52 year old, M admitted on 03/29/18. - MHU Identification Employment Status: Disabled Hx Psychiatric Hospitalization: Yes History - Objective HPI: Gabriel continues to be in good spirits and quite cooperative with staff. He is tolerating olanzapine well and denies SI or any thoughts of interfering with his further treatment. He mentions that he would like to be placed in a rehab facility out of state and to wants to be a peer-advocate for others with neurological disabilities. He is eating a double-portions meal for lunch and is interactive and reciprocal during our conversation. Exam Appearance: Thin Framed Hygiene: Normal Grooming: Fairly Well Kept Psychomotor Activities: Normal Exhibits Abnormal Movement: No Attitude and Relatedness: Cooperative Eye Contact: Good - Speech Quality: Unpressured Latencies: Normal Quantity: Appropriate Patient's Decription of Mood: "Good" Observed Affect: Good Affect Consistent with: Euthymia Patient's Thought Process: Coherent Thought Content: No Passive Wish, No Suicidal Planning, No Homicidal Ideation, No Paranoid Ideation Experiencing Hallucinations: No, Sensorium is Clear Type of Hallucinations: Visual: No, Auditory: No, Command: No Level of Consciousness: Alert Orientation: Yes Intact, Yes Orientated to Time, Yes Orientated to Place, Yes Orientated to Person Impulse Control: Intact Insight and Judgement: Good Impression - Impression Clinical Impression: 52 y.o. , white male with paraplegia, arrives on 9.[address] [facility] following a suicidal gesture in which he tied a sheet around his neck and motioned to hang himself. His hospital course has been complicated by mood dysregulation, manipulative behavior and uncooperativity at times. Inpatient DSM-V Dx: F31.9 Merits Inpatient Hospitalization: No Problem List - MHU Problems Type of Problem: Mood Status of Problem: Resolved Plan - Treatment Plan Treatment Plan: This is the best that I have seen Gabriel during this hospital course. He appears to be benefitting from olanzapine 7.5mg PO BID in terms of improved mood and appetite. He continues to deny suicidal ideation and reports that he is willing to work with the team to move his care forward and seek post- discharge placement, preferably in a facility that specializes in care for paraplegics. He continues to lack capacity to make informed medical decisions. Psychiatry will continue to follow. Medications: Current Medications Acetaminophen (Tylenol Tab*) 650 mg PO Q4H PRN PRN Reason: FEVER/PAIN Last Admin: 04/14/18 14:48 Dose: 325 mg Al Hydrox/Mg Hydrox/Simethicone (Maalox Plus*) 30 ml PO Q6H PRN PRN Reason: INDIGESTION Albuterol (Ventolin 2.5 Mg/3 Ml Neb.Dayami*) 2.5 mg INH [id number] AWAKE PRN PRN Reason: sob/wheezing Ascorbic Acid (Vitamin C Tab*) 1,000 mg PO DAILY [facility] Last Admin: 04/16/18 08:44 Dose: 1,000 mg Atorvastatin Calcium (Lipitor*) 10 mg PO 2100 [facility] Last Admin: 04/15/18 21:27 Dose: 10 mg Capsaicin (Zostrix 0.025% Cream*) 1 applic TOPICAL BID PRN PRN Reason: pain Last Admin: 04/16/18 07:49 Dose: 1 applic Cholecalciferol (Vitamin D Tab*) 1,000 units PO DAILY [facility] Last Admin: 04/16/18 08:44 Dose: 1,000 units Collagenase (Santyl 250 Mg/Gm Oint*) 1 applic TOPICAL DAILY [facility] Last Admin: 04/16/18 07:48 Dose: 1 applic Diphenhydramine HCl (Benadryl Po*) 25 mg PO Q6H PRN PRN Reason: ITCHING Last Admin: 04/02/18 04:05 Dose: 25 mg Docusate Sodium (Colace Cap*) 100 mg PO BID PRN PRN Reason: CONSTIPATION Last Admin: 04/07/18 10:09 Dose: 100 mg Doxycycline Hyclate (Vibramycin Cap(*)) 100 mg PO BID [facility] Last Admin: 04/16/18 08:40 Dose: 100 mg Famotidine (Pepcid Tab*) 20 mg PO BID PRN PRN Reason: HEARTBURN Last Admin: 04/15/18 21:26 Dose: 20 mg Gabapentin (Neurontin Cap(*)) 100 mg PO TID [facility] Last Admin: 04/16/18 08:45 Dose: Not Given Heparin Sodium (Porcine) (Heparin Vial(*)) 5,000 units SUBCUT Q8HR [facility] Last Admin: 04/16/18 05:48 Dose: 5,000 units Sodium Chloride (Ns 0.9% 1000 Ml*) 400 mls @ 100 mls/hr IV .FOR 4 HOURS [facility] Magnesium Hydroxide (Milk Of Magnesia Liq*) 30 ml PO Q4H PRN PRN Reason: CONSTIPATION Magnesium Oxide (Magox 400 Tab*) 400 mg PO DAILY [facility] Last Admin: 04/16/18 08:44 Dose: 400 mg Melatonin (Melatonin) 3 mg PO BEDTIME PRN; Protocol PRN Reason: SLEEP Metoprolol Succinate (Toprol Xl Tab*) 50 mg PO DAILY [facility] Last Admin: 04/16/18 08:41 Dose: Not Given Morphine Sulfate (Morphine Oral Concentrate*) 5 mg PO Q8H PRN PRN Reason: PAIN Last Admin: 04/16/18 03:49 Dose: 5 mg Nystatin (Nystatin Top Powder*) 1 applic TOPICAL BID [facility] Stop: 04/25/18 20:59 Last Admin: 04/16/18 07:49 Dose: 1 applic Olanzapine (Zyprexa Im (Nf)) 7.5 mg IM BID PRN; Protocol PRN Reason: ANXIETY Olanzapine (Zyprexa * Tab Odt) 7.5 mg PO BID [facility] Last Admin: 04/16/18 08:41 Dose: 7.5 mg Ondansetron HCl (Zofran Inj*) 4 mg IV Q4H PRN PRN Reason: NAUSEA/VOMITING Polyethylene Glycol/Electrolytes (Miralax*) 17 gm PO DAILY PRN PRN Reason: CONSTIPATION Last Admin: 04/05/18 13:42 Dose: 17 gm Tizanidine HCl (Zanaflex Tab*) 4 mg PO QID PRN PRN Reason: SPASMS Last Admin: 04/16/18 08:40 Dose: 4 mg - Discharge Plan Discharge Plan: Outpatient Follow Up
--- NOTE | 2018-04-16 14:14 | PN ---
Subjective Date of Service: 04/16/18 Interval History: Patient seen today. Pleasant. Denies any suicidal thoughts at this time. He asked me to get in touch with his wound care doctor ?"Barby" [phone] as he would like to have his sacral wound debrided. otherwise he offers no other complains Social History: Unchanged from Admission Past Medical History: Unchanged from Admission Objective Active Medications: Acetaminophen (Tylenol Tab*) 650 mg PO Q4H PRN PRN Reason: FEVER/PAIN Last Admin: 04/14/18 14:48 Dose: 325 mg Al Hydrox/Mg Hydrox/Simethicone (Maalox Plus*) 30 ml PO Q6H PRN PRN Reason: INDIGESTION Albuterol (Ventolin 2.5 Mg/3 Ml Neb.Dayami*) 2.5 mg INH [id number] AWAKE PRN PRN Reason: sob/wheezing Ascorbic Acid (Vitamin C Tab*) 1,000 mg PO DAILY [facility] Last Admin: 04/16/18 08:44 Dose: 1,000 mg Atorvastatin Calcium (Lipitor*) 10 mg PO 2100 [facility] Last Admin: 04/15/18 21:27 Dose: 10 mg Capsaicin (Zostrix 0.025% Cream*) 1 applic TOPICAL BID PRN PRN Reason: pain Last Admin: 04/16/18 07:49 Dose: 1 applic Cholecalciferol (Vitamin D Tab*) 1,000 units PO DAILY [facility] Last Admin: 04/16/18 08:44 Dose: 1,000 units Collagenase (Santyl 250 Mg/Gm Oint*) 1 applic TOPICAL DAILY [facility] Last Admin: 04/16/18 07:48 Dose: 1 applic Diphenhydramine HCl (Benadryl Po*) 25 mg PO Q6H PRN PRN Reason: ITCHING Last Admin: 04/02/18 04:05 Dose: 25 mg Docusate Sodium (Colace Cap*) 100 mg PO BID PRN PRN Reason: CONSTIPATION Last Admin: 04/07/18 10:09 Dose: 100 mg Doxycycline Hyclate (Vibramycin Cap(*)) 100 mg PO BID [facility] Last Admin: 04/16/18 08:40 Dose: 100 mg Famotidine (Pepcid Tab*) 20 mg PO BID PRN PRN Reason: HEARTBURN Last Admin: 04/15/18 21:26 Dose: 20 mg Gabapentin (Neurontin Cap(*)) 100 mg PO TID [facility] Last Admin: 04/16/18 13:45 Dose: Not Given Heparin Sodium (Porcine) (Heparin Vial(*)) 5,000 units SUBCUT Q8HR [facility] Last Admin: 04/16/18 05:48 Dose: 5,000 units Sodium Chloride (Ns 0.9% 1000 Ml*) 400 mls @ 100 mls/hr IV .FOR 4 HOURS [facility] Magnesium Hydroxide (Milk Of Magnesia Liq*) 30 ml PO Q4H PRN PRN Reason: CONSTIPATION Magnesium Oxide (Magox 400 Tab*) 400 mg PO DAILY [facility] Last Admin: 04/16/18 08:44 Dose: 400 mg Melatonin (Melatonin) 3 mg PO BEDTIME PRN; Protocol PRN Reason: SLEEP Metoprolol Succinate (Toprol Xl Tab*) 50 mg PO DAILY [facility] Last Admin: 04/16/18 08:41 Dose: Not Given Morphine Sulfate (Morphine Oral Concentrate*) 5 mg PO Q8H PRN PRN Reason: PAIN Last Admin: 04/16/18 03:49 Dose: 5 mg Nystatin (Nystatin Top Powder*) 1 applic TOPICAL BID [facility] Stop: 04/25/18 20:59 Last Admin: 04/16/18 07:49 Dose: 1 applic Olanzapine (Zyprexa Im (Nf)) 7.5 mg IM BID PRN; Protocol PRN Reason: ANXIETY Olanzapine (Zyprexa * Tab Odt) 7.5 mg PO BID [facility] Last Admin: 04/16/18 08:41 Dose: 7.5 mg Ondansetron HCl (Zofran Inj*) 4 mg IV Q4H PRN PRN Reason: NAUSEA/VOMITING Polyethylene Glycol/Electrolytes (Miralax*) 17 gm PO DAILY PRN PRN Reason: CONSTIPATION Last Admin: 04/05/18 13:42 Dose: 17 gm Tizanidine HCl (Zanaflex Tab*) 4 mg PO QID PRN PRN Reason: SPASMS Last Admin: 04/16/18 08:40 Dose: 4 mg Vital Signs - 8 hr 04/16/18 04/16/18 04/16/18 07:08 07:30 08:00 Temperature 99.5 F Pulse Rate 123 114 Respiratory 18 16 16 Rate Blood Pressure 91/61 (mmHg) O2 Sat by Pulse 100 Oximetry 04/16/18 08:41 Temperature Pulse Rate Respiratory Rate Blood Pressure 100/52 (mmHg) O2 Sat by Pulse Oximetry Oxygen Devices in Use Now: None Eyes: No Scleral Icterus, - - EOMI Ears/Nose/Mouth/Throat: Clear Oropharnyx Neck: NL Appearance and Movements; NL JVP, Trachea Midline Respiratory: Symmetrical Chest Expansion and Respiratory Effort, Clear to Auscultation, - - palpable left anterior chest wall catheter subcutaneous consistent with his CRECHE ATTENDANT shunt Cardiovascular: NL Sounds; No Murmurs; No JVD Abdominal: NL Sounds; No Tenderness; No Distention, - - suprapubic catheter Extremities: No Edema, - - mucular waisting Skin: - - sacral decubitus ulcer Neurological: Alert and Oriented x 3 - Nutrition: Malnutrition Diagnosis/Plan Malnutrition Assessment by Registered Dietitian: Malnutrition Assessment Clinical Characteristics Acute,Severe Malnutrition Assessment: - Moderate temporal muscle wasting and muscle Criteria wasting of upper extrmities - Underweight: BMI 17.0 - Pt report of 20% wt loss (severe) Malnutrition Assessment: - Will send whole milk daily at B, L, D (170 Interventions kcals, 8 grams protein per serving) - Will send double protein portions at B, L, D Malnutrition Assessment: Goals 1. Intake will promote weight repletion w/o additional loss of lean body mass - Goal: > 75% intake of meals 2. Intake will promote wound healing w/o additional pressure related skin breakdown Result Diagrams: 04/16/18 06:23 04/16/18 06:23 Microbiology and Other Data: Microbiology 03/29/18 22:47 Nasal Screen MRSA (PCR) - Final Nasal Mrsa Detected Assess/Plan/Problems-Billing Assessment: Mr. 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 Also being followed by [facility] psychiatrist. - Patient Problems (1) Back muscle spasm Current Visit: Yes Status: Acute Priority: Low Code(s): M62.830 - MUSCLE SPASM OF BACK SNOMED Code(s): 472244360 Comment: off Baclofen. Offers no complains today! no Tizanidine 4 mg tid (2) DVT prophylaxis Current Visit: Yes Status: Acute Code(s): WPP8880 - SNOMED Code(s): 901404633 Comment: - Heparin SQ (3) Hyperlipidemia Current Visit: Yes Status: Acute Code(s): E78.5 - HYPERLIPIDEMIA, UNSPECIFIED SNOMED Code(s): 53587073 Comment: - Continue atorvastatin. (4) Hypertension Current Visit: Yes Status: Acute Code(s): I10 - ESSENTIAL (PRIMARY) HYPERTENSION SNOMED Code(s): 43339847 Comment: -Continue metoprolol, (5) Osteomyelitis Current Visit: Yes Status: Acute Code(s): M86.9 - OSTEOMYELITIS, UNSPECIFIED SNOMED Code(s): 45369142 Comment: - From decubitus ulcers, was followed at [facility] - off Vancomycin since PICC line removed and pt not compliant - Placed on doxycycline for 4 days -will with ID recommendation in regared to total course durations. - Wound care with santyl and guaze, but patient is also refusing basic wound care and hygeine, however today he seems very willing to have wound care. will revsisit with patien again in am - On Orgas mattress (6) Paraplegia Current Visit: Yes Status: Acute Code(s): G82.20 - PARAPLEGIA, UNSPECIFIED SNOMED Code(s): 76066422 Comment: - Hx of CVA with CRECHE ATTENDANT shunt that left him paralyzed (7) Protein-calorie malnutrition, severe Current Visit: Yes Status: Acute Code(s): E43 - UNSPECIFIED SEVERE PROTEIN- CALORIE MALNUTRITION SNOMED Code(s): 629128750 Comment: encourage to complete his meals. he was enjoying his ICE cream during my visit which is encouraging (8) Suicide attempt Current Visit: Yes Status: Acute Comment: -Per Dr. Romano, pt lacks capacity to decide for himself and will need to be placed but is stable regarding SI/HI that will not need [facility] stay -Currently denies SI -Continue Olanzapine PO BID Status and Disposition: -Placement pending due to lack of capacity to care for himself -Denies any current SI/HI
[2018-04-16] MEDS: Famotidine TAB* 20 MG PO PRN ×2 (15:01→21:29)
[2018-04-16] MEDS: Atorvastatin* 10 MG TAB PO SCH (21:19)
[2018-04-17] MEDS: Heparin VIAL(*) 5000 UNITS/ML VIAL (FIVE THOUSAND) SUBCUT SCH (05:28)
[2018-04-17 07:53] VITALS: BP 132/81
[2018-04-17] MEDS: Ascorbic Acid TAB* 500 MG PO SCH (09:40)
[2018-04-17] MEDS: DOXYcycline CAP(*) 100 MG PO SCH (09:41)
[2018-04-17] MEDS: Cholecalciferol TAB* 1000 UNITS PO SCH (09:41)
[2018-04-17] MEDS: Magnesium Oxide TAB* 400 MG PO SCH (09:42)
[2018-04-17] MEDS: Gabapentin CAP(*) 100 MG PO SCH (09:42)
[2018-04-17] MEDS: Metoprolol Succinate XL TAB* 50 MG PO SCH (09:43)
[2018-04-17] MEDS: Nystatin TOP POWDER* 15 GM BTL TOPICAL SCH (09:43)
[2018-04-17] MEDS: OLANzapine TAB*ODT* 5 MG PO SCH (09:43)
[2018-04-17] MEDS: Collagenase 250 MG/GM OINT* 30 GM TOPICAL SCH (11:06)
--- NOTE | 2018-04-17 16:11 | DS ---
DISCHARGE SUMMARY/HISTORY AND PHYSICAL TO SWING BED: DATE OF ADMISSION: 03/29/18 DATE OF DISCHARGE: 04/17/18 FINAL DISCHARGE DIAGNOSES: 1. Suicidal ideation. 2. Depression. 3. Sacral wound ulcer. 4. Paraplegic. 5. Bipolar disorder. 6. Left hip surgical repair. 7. Neurogenic bladder with suprapubic catheter. 8. History of gastroesophageal reflux disease. 9. Hyponatremia. 10. History of ventriculoperitoneal shunt. HOSPITAL COURSE: The patient was admitted to [facility] on 03/29/18 after suicidal attempt at his rehab facility, [facility], due to the patient's increased frustration of his care that he verbalized to me, he wrapped a bedsheet around his neck and he tried to hang himself. He was brought into our facility and he was admitted to medical service with Psych consult. The patient was seen and evaluated by Psychiatry on multiple occasions, did not see him fit to be treated at the psych floor, hence they were following the patient along with the medical service. I did meet the patient for the first time on , which was yesterday and during the multidisciplinary round, the patient was deemed stable for transfer to swing bed as he does still require care for his sacral wound and unable to have him transferred back to [facility] with his current medical care need being incompetent to make a decision and his wound care. Therefore, the patient was transitioned to swing bed status as of . Upon further reviewing his record and obtaining further history from the patient, he tells me that he was being followed by the wound care in [place] for which he has not had any further followup and we will need to arrange consultation with our meeting specialist. Also, he verbalized and expressed history of left hip infection for which he was getting IV antibiotics, but he was refusing treatment and his PICC line was discontinued. This morning, he tells me he would like to revisit with Orthopedics to see if this infection has been completed or not. I did request the record to be faxed to us from [facility], his orthopedic consult, ID consult, discharge summary consult, and imaging of the hip. At the present time, the patient deemed stable for transfer to swing bed on the following medications outlined below. PAST MEDICAL HISTORY: 1. Left hip infection, status post surgical drainage and repair. 2. Paraplegic; as per the patient, he states it is idiopathic. 3. Neurogenic bladder, status post suprapubic catheter. 4. Sacral wound ulcers x2, present on admission. 5. History of bipolar with suicidal ideation and attempt. 6. History of GERD. PAST SURGICAL HISTORY: 1. Left hip surgery. 2. TURP. 3. Ureterostomy. 4. Ventriculoperitoneal shunt surgery x2. MEDICATIONS: 1. Tylenol 650 p.o. q.4 hours p.r.n. fever. 2. Maalox 30 mL p.o. q.6 hours p.r.n. 3. Albuterol inhaler every 4 hours p.r.n. 4. Vitamin C 1000 daily. 5. Lipitor 10 mg daily. 6. Zostrix 0.025% cream twice a day. 7. Vitamin D 1000 daily. 8. Santyl ointment to sacral wound daily. 9. Benadryl 25 mg p.r.n. 10. Colace 100 mg b.i.d. p.r.n. 11. Doxycycline 100 mg p.o. b.i.d. 12. Pepcid 20 b.i.d. 13. Neurontin 100 mg t.i.d. 14. Heparin 5000 subcu q.8 hours. 15. Milk of mag 30 mL p.o. q.4 hours p.r.n. 16. Magnesium mg p.o. daily. 17. Melatonin 3 mg daily. 18. Metoprolol 50 mg at bedtime. 19. Morphine 5 mg p.o. q.8 hours p.r.n. 20. Nystatin 1 application b.i.d. 21. Zyprexa 7.5 IM b.i.d. p.r.n. anxiety. 22. Zyprexa 7.5 p.o. b.i.d. 23. MiraLAX 17 g daily. 24. Zanaflex 4 mg p.o. four times a day p.r.n. ALLERGIES: Allergic to OXYCODONE. FAMILY HISTORY: Adopted. SOCIAL HISTORY: He is . Former smoker, quit 9 years ago. Denies any alcohol use recently. He was recently discharged from [facility] and currently living in [facility]. REVIEW OF SYSTEMS: Some left hip pain. Increased anxiety and depression. PHYSICAL EXAMINATION: Vital Signs: Pulse 114, respiratory rate 18, pressure 132/81, satting 95%. Generally, he is awake, alert. He is cooperative, in no apparent distress. Head and Neck: Normocephalic, atraumatic. Slight muscular wasting with prominent facial bony prominence. Moist mucous membranes. Lungs: Clear to auscultation bilaterally. Cardiovascular: S1, S2. Regular rate and rhythm. Abdomen: Positive bowel sounds. He does have suprapubic catheter in place. Back: He does have sacral decubitus on the right lateral side of his hip and his right gluteus vinod, both approximately stage II, largest about 2.5 cm. Extremities: No pedal edema. LABORATORY DATA: His last chemistry was done yesterday, sodium of 134, potassium 4.7, BUN of 31, creatinine 0.8, sugar 149, phosphorus 4.2, mag 1.6. CBC shows white count 10.5, hemoglobin 10.2, hematocrit 31, platelets 389. IMPRESSION AND PLAN: This is a 52-year-old male transferred to our facility from [facility], his rehab, for suicidal attempt and with underlying diagnosis of bipolar and suicidal ideation, left hip infection, was supposed to be on intravenous antibiotics. 1. For his suicidal ideation, he was seen and evaluated by Psychiatry. He was deemed incompetent to make a decision; however, he seems to be less suicidal, more cooperative. We will continue with his current psych meds and appreciate Psych input. Last note from 04/16/18 noted and reviewed with a mention tolerating his current regimen of olanzapine. Continue to follow up. As of yesterday, he remained to be lacking the capacity to make an informed medical decision. We will continue his Zyprexa 7.5 b.i.d. 2. For his left hip infection, subjective by the patient, he is on doxycycline for which currently utilized for his sacral decub; however, on further questioning, he tells me he was on IV vanco for which the PICC line discontinued for noncompliance. He did not have any followup with Orthopedics in [place] as he canceled his appointment. I did request a note from his orthopedic group at [facility]. I requested Infectious Disease consult from his last hospitalization in [place] and any imaging. Pending the record review, we may need to reconsult our orthopedic versus arrange for transfer for outpatient followup with the orthopedic group from [place]. 3. For his neurogenic bladder, continue his Connor catheter. 4. For his sacral decub, we are going to call the Wound Care consult, also continue his Santyl ointment. 5. For his hyperlipidemia, continue his Lipitor. 6. For his DVT prophylaxis, he is on heparin 5000 subcu. 7. For his hypertension, continue his Toprol-XL 50 daily. [id number]/[facility] #: [id number] [facility] HOSPITALTammy
== END 2018-04-17 13:49 | disposition swing bed (61) | DRG 539 ==
LOC: ED 11:10 → MED 20:33
PROVIDERS: ADMIT Hospitalist; ATTEND Internal Medicine
PROC: 4A00X4Z Measurement of Central Nervous Electrical Activity, External Approach (ICD-10-PCS; principal; 2018-04-01)
PROC: 02PYX3Z Removal of Infusion Device from Great Vessel, External Approach (ICD-10-PCS; 2018-04-10)
DX: M86.9 Osteomyelitis, unspecified (principal); E43 Unspecified severe protein-calorie malnutrition; G82.20 Paraplegia, unspecified; E87.1 Hypo-osmolality and hyponatremia; M00.9 Pyogenic arthritis, unspecified; N39.0 Urinary tract infection, site not specified; Z68.1 Body mass index [BMI] 19.9 or less, adult; R78.81 Bacteremia; L02.91 Cutaneous abscess, unspecified; T14.91XA Suicide attempt, initial encounter; F32.9 Major depressive disorder, single episode, unspecified; I10 Essential (primary) hypertension; E83.42 Hypomagnesemia; R33.9 Retention of urine, unspecified; K21.9 Gastro-esophageal reflux disease without esophagitis; M25.562 Pain in left knee; M25.561 Pain in right knee; D64.9 Anemia, unspecified; H54.7 Unspecified visual loss; I95.9 Hypotension, unspecified; N31.9 Neuromuscular dysfunction of bladder, unspecified; L89.152 Pressure ulcer of sacral region, stage 2; F41.9 Anxiety disorder, unspecified; M25.552 Pain in left hip; M62.50 Muscle wasting and atrophy, not elsewhere classified, unspecified site; E78.5 Hyperlipidemia, unspecified; L89.329 Pressure ulcer of left buttock, unspecified stage; L89.319 Pressure ulcer of right buttock, unspecified stage; R55 Syncope and collapse; 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 resistant Staphylococcus aureus infection as the cause of diseases classified elsewhere; R00.0 Tachycardia, unspecified; N28.9 Disorder of kidney and ureter, unspecified; M62.830 Muscle spasm of back; Z98.2 Presence of cerebrospinal fluid drainage device; Z90.79 Acquired absence of other genital organ(s); Z79.01 Long term (current) use of anticoagulants; Z86.14 Personal history of Methicillin resistant Staphylococcus aureus infection; Z87.440 Personal history of urinary (tract) infections; I69.369 Other paralytic syndrome following cerebral infarction affecting unspecified side; Z88.5 Allergy status to narcotic agent; Z87.891 Personal history of nicotine dependence; X83.8XXA Intentional self-harm by other specified means, initial encounter
CPT/HCPCS: 36415; 36569; 71045; 71275; 80048; 80053; 80202; 80307; 80329; 80349; 80361; 80365; 81003; 81015; 82565; 83735; 84100; 84134; 84443; 84520; 85025; 85027; 86140; 87040; 87086; 87106; 87641; 93005; 93306; 95819; 99285; A9270-GY; G0480; J1170; J1630; J1644; J2997; J3370; J3475; Q9967

== ENCOUNTER 2018-04-17 13:49 | Inpatient (IN) | payer MEDICARE, MEDICAID ==
--- NOTE | 2018-04-17 14:30 | CONSULT ---
Identification - Patient Identification Reason for Psychiatric Consultation: Suicidal Ideation -: Patient is a 52 year old, M admitted on 04/17/18. - MHU Identification Employment Status: Disabled Hx Psychiatric Hospitalization: Yes History - Objective HPI: Gabriel remains in good spirits today, tolerating olanzapine well and looking forward to finding a new place to live, even if this turns out to be out of state. "I'm all good Doc. I just want to move forward." He denies SI and reports euthymic mood. His affect is full and there is no more appearance of hypomanic functioning. He is eating 100% of meals and requesting extra portions. Exam Appearance: Thin Framed Hygiene: Normal Grooming: Fairly Well Kept Psychomotor Activities: Normal Exhibits Abnormal Movement: No Attitude and Relatedness: Cooperative Eye Contact: Good - Speech Quality: Unpressured Latencies: Normal Quantity: Appropriate Patient's Decription of Mood: "Good" Observed Affect: Good Affect Consistent with: Euthymia Patient's Thought Process: Coherent Thought Content: No Passive Wish, No Suicidal Planning, No Homicidal Ideation, No Paranoid Ideation Experiencing Hallucinations: No, Sensorium is Clear Type of Hallucinations: Visual: No, Auditory: No, Command: No Level of Consciousness: Alert Orientation: Yes Intact, Yes Orientated to Time, Yes Orientated to Place, Yes Orientated to Person Impulse Control: Intact Insight and Judgement: Good Impression - Impression Clinical Impression: 52 y.o. , white male with paraplegia, arrives on 9.41 from [facility] following a suicidal gesture in which he tied a sheet around his neck and gestured to hang himself. Inpatient DSM-V Dx: F31.74 Merits Inpatient Hospitalization: No Problem List - MHU Problems Type of Problem: Mood Status of Problem: Resolved Plan - Treatment Plan Treatment Plan: The patient has greatly improved on olanzapine. He is psychiatrically cleared for discharge and is awaiting placement. Psychiatry will continue to follow. Continued Medication Management: Start Medication - Discharge Plan Discharge Plan: Outpatient Follow Up
[2018-04-17] MEDS ORDERED: Docusate CAP* 100 MG PO PRN (15:04)
[2018-04-17] MEDS ORDERED: Magnesium Hydroxide LIQ* 30 ML UDC PO PRN (15:05)
[2018-04-17] MEDS ORDERED: Al Hydrox/Mg Hydrox/Simet LIQ* 30 ML UDC PO PRN (15:05)
[2018-04-17] MEDS ORDERED: Melatonin 3 MG TAB PO PRN (15:05)
[2018-04-17] MEDS ORDERED: Polyethylene Glycol 3350* 17 GM PACKET PO PRN (15:06)
[2018-04-17] MEDS ORDERED: Famotidine TAB* 20 MG PO PRN (15:06)
[2018-04-17] MEDS ORDERED: Albuterol 2.5 MG/3 ML NEB.SOL* (0.083%) INH PRN (15:07)
[2018-04-17] MEDS ORDERED: Capsaicin 0.025% CREAM* 60 GM TOPICAL PRN (15:09)
[2018-04-17] MEDS: Heparin VIAL(*) 5000 UNITS/ML VIAL (FIVE THOUSAND) SUBCUT SCH ×2 (17:04→23:08)
[2018-04-17] MEDS: Gabapentin CAP(*) 100 MG PO SCH ×2 (17:04→22:18)
[2018-04-17] MEDS: Morphine ORAL CONCENTRATE* 5 MG/0.25 ML ORAL.SYRIN PO PRN (17:30)
[2018-04-17] MEDS: Atorvastatin* 10 MG TAB PO SCH (22:03)
[2018-04-17] MEDS: DOXYcycline CAP(*) 100 MG PO SCH (22:03)
[2018-04-17] MEDS: OLANzapine TAB*ODT* 5 MG PO SCH (22:04)
[2018-04-17] MEDS: Nystatin TOP POWDER* 15 GM BTL TOPICAL SCH (22:19)
[2018-04-18] MEDS: Heparin VIAL(*) 5000 UNITS/ML VIAL (FIVE THOUSAND) SUBCUT SCH ×4 (05:10→23:32)
[2018-04-18] MEDS: DOXYcycline CAP(*) 100 MG PO SCH ×2 (08:39→23:27)
[2018-04-18] MEDS: Ascorbic Acid TAB* 500 MG PO SCH (08:39)
[2018-04-18] MEDS: Metoprolol Succinate XL TAB* 50 MG PO SCH (08:39)
[2018-04-18] MEDS: OLANzapine TAB*ODT* 5 MG PO SCH ×2 (08:39→23:28)
[2018-04-18] MEDS: Magnesium Oxide TAB* 400 MG PO SCH (08:39)
[2018-04-18] MEDS: Morphine ORAL CONCENTRATE* 5 MG/0.25 ML ORAL.SYRIN PO PRN ×2 (08:41→23:33)
[2018-04-18] MEDS: Gabapentin CAP(*) 100 MG PO SCH ×3 (08:49→23:32)
[2018-04-18] MEDS: Nystatin TOP POWDER* 15 GM BTL TOPICAL SCH ×2 (13:56→23:32)
[2018-04-18] MEDS: Collagenase 250 MG/GM OINT* 30 GM TOPICAL SCH (13:56)
[2018-04-18] MEDS: Atorvastatin* 10 MG TAB PO SCH (23:27)
[2018-04-18] MEDS: Acetaminophen TAB* 325 MG PO PRN (23:37)
[2018-04-18] MEDS: tiZANidine TAB* 2 MG PO PRN (23:37)
[2018-04-19 07:24] LABS: ABS Basophils 0.1 10^3/ul (0-0.2); ABS Eosinophils 0.4 10^3/ul (0-0.6); ABS Lymphocytes 2.7 10^3/ul (1.0-4.8); ABS Neutrophils 8.4 10^3/ul (1.5-7.7); ABS Nucleated RBC 0 10^3/ul; Eosinophil % 3.2 % (0-6); Hematocrit 26 % (42-52); Hemoglobin 8.5 g/dl (14.0-18.0); Mean Corpuscular HGB Conc 33 g/dl (31-36); Mean Corpuscular Hemoglobin 29 pg (27-31); Mean Corpuscular Volume 89 fL (80-94); Mean Platelet Volume 7.5 um3 (7.4-10.4); Nucleated Red Blood Cells % 0.1; Platelet Count 275 10^3/ul (150-450); Red Blood Count 2.91 10^6/ul (4.00-5.40); Red Cell Distribution Width 19 % (10.5-15); White Blood Count 12.7 10^3/ul (3.5-10.8)
[2018-04-19 07:31] LABS: EGFR Non-African American 81.3 (>60)
[2018-04-19] MEDS: Collagenase 250 MG/GM OINT* 30 GM TOPICAL SCH (07:39)
[2018-04-19] MEDS: Magnesium Oxide TAB* 400 MG PO SCH (07:39)
[2018-04-19] MEDS: DOXYcycline CAP(*) 100 MG PO SCH ×2 (07:39→22:11)
[2018-04-19] MEDS: tiZANidine TAB* 2 MG PO PRN (07:39)
[2018-04-19] MEDS: OLANzapine TAB*ODT* 5 MG PO SCH ×2 (07:39→22:12)
[2018-04-19] MEDS: Ascorbic Acid TAB* 500 MG PO SCH (07:39)
[2018-04-19] MEDS: Gabapentin CAP(*) 100 MG PO SCH ×3 (07:47→22:13)
[2018-04-19] MEDS: Nystatin TOP POWDER* 15 GM BTL TOPICAL SCH ×3 (07:47→22:12)
[2018-04-19] MEDS: Metoprolol Succinate XL TAB* 50 MG PO SCH (07:48)
[2018-04-19] MEDS: Heparin VIAL(*) 5000 UNITS/ML VIAL (FIVE THOUSAND) SUBCUT SCH ×3 (08:23→22:11)
--- NOTE | 2018-04-19 15:37 | CONSULT ---
Identification - Patient Identification Reason for Psychiatric Consultation: Suicidal Ideation -: Patient is a 52 year old, M admitted on 04/17/18. - MHU Identification Employment Status: Disabled Hx Psychiatric Hospitalization: Yes History - Objective HPI: Gabriel is frustrated that his attempts to advocate for himself, by contacting various SNF's and [facility]'s in and out of state, have not met with success. He denies SI and is somewhat resigned to returning to [facility], although this is not what he wants. Staff indicates that he is cooperative and responds well to limit setting. Exam Appearance: Thin Framed Hygiene: Normal Grooming: Fairly Well Kept Psychomotor Activities: Normal Exhibits Abnormal Movement: No Attitude and Relatedness: Cooperative Eye Contact: Good - Speech Quality: Unpressured Latencies: Normal Quantity: Appropriate Patient's Decription of Mood: "Good" Observed Affect: Good Affect Consistent with: Euthymia Patient's Thought Process: Coherent Thought Content: No Passive Wish, No Suicidal Planning, No Homicidal Ideation, No Paranoid Ideation Experiencing Hallucinations: No, Sensorium is Clear Type of Hallucinations: Visual: No, Auditory: No, Command: No Level of Consciousness: Alert Orientation: Yes Intact, Yes Orientated to Time, Yes Orientated to Place, Yes Orientated to Person Impulse Control: Intact Insight and Judgement: Good Impression - Impression Clinical Impression: 52 y.o. , white male with paraplegia, arrives on 9.41 from [facility] following a suicidal gesture in which he tied a sheet around his neck and gestured to hang himself. Inpatient DSM-V Dx: F31.74 Merits Inpatient Hospitalization: No Problem List - MHU Problems Type of Problem: Mood Status of Problem: Resolved Plan - Treatment Plan Treatment Plan: The patient has greatly improved on olanzapine 7.5mg PO BID. He is psychiatrically cleared for discharge and is awaiting placement. Psychiatry will continue to follow. Continued Medication Management: Start Medication Medications: Current Medications Acetaminophen (Tylenol Tab*) 650 mg PO Q4H PRN PRN Reason: PAIN/FEVER Last Admin: 04/18/18 23:37 Dose: 650 mg Al Hydrox/Mg Hydrox/Simethicone (Maalox Plus*) 30 ml PO Q6H PRN PRN Reason: INDIGESTION Albuterol (Ventolin 2.5 Mg/3 Ml Neb.Dayami*) 2.5 mg INH [id number] AWAKE PRN PRN Reason: SOB/WHEEZING Ascorbic Acid (Vitamin C Tab*) 1,000 mg PO DAILY [facility] Last Admin: 04/19/18 07:39 Dose: 1,000 mg Atorvastatin Calcium (Lipitor*) 10 mg PO 2100 [facility] Last Admin: 04/18/18 23:27 Dose: 10 mg Capsaicin (Zostrix 0.025% Cream*) 1 applic TOPICAL BID PRN PRN Reason: PAIN Collagenase (Santyl 250 Mg/Gm Oint*) 1 applic TOPICAL DAILY [facility] Last Admin: 04/19/18 07:39 Dose: 1 applic Diphenhydramine HCl (Benadryl Po*) 25 mg PO Q6H PRN PRN Reason: ITCHING Docusate Sodium (Colace Cap*) 100 mg PO BID PRN PRN Reason: CONSTIPATION Doxycycline Hyclate (Vibramycin Cap(*)) 100 mg PO BID [facility] Last Admin: 04/19/18 07:39 Dose: 100 mg Famotidine (Pepcid Tab*) 20 mg PO BID PRN PRN Reason: HEARTBURN Gabapentin (Neurontin Cap(*)) 100 mg PO TID [facility] Last Admin: 04/19/18 13:17 Dose: Not Given Heparin Sodium (Porcine) (Heparin Vial(*)) 5,000 units SUBCUT Q8H [facility] Last Admin: 04/19/18 08:23 Dose: 5,000 units Magnesium Hydroxide (Milk Of Magnesia Liq*) 30 ml PO Q4H PRN PRN Reason: CONSTIPATION Magnesium Oxide (Magox 400 Tab*) 400 mg PO DAILY [facility] Last Admin: 04/19/18 07:39 Dose: 400 mg Melatonin (Melatonin) 3 mg PO BEDTIME PRN PRN Reason: SLEEP Metoprolol Succinate (Toprol Xl Tab*) 50 mg PO DAILY [facility] Last Admin: 04/19/18 07:48 Dose: Not Given Morphine Sulfate (Morphine Oral Concentrate*) 5 mg PO Q8H PRN PRN Reason: PAIN Last Admin: 04/18/18 23:33 Dose: 5 mg Nystatin (Nystatin Top Powder*) 1 applic TOPICAL BID [facility] Last Admin: 04/19/18 07:47 Dose: Not Given Olanzapine (Zyprexa * Tab Odt) 7.5 mg PO BID [facility] Last Admin: 04/19/18 07:39 Dose: 7.5 mg Polyethylene Glycol/Electrolytes (Miralax*) 17 gm PO DAILY PRN PRN Reason: CONSTIPATION Tizanidine HCl (Zanaflex Tab*) 4 mg PO QID PRN PRN Reason: SPASMS Last Admin: 04/19/18 07:39 Dose: 4 mg - Discharge Plan Discharge Plan: Outpatient Follow Up
[2018-04-19] MEDS: Atorvastatin* 10 MG TAB PO SCH (22:11)
[2018-04-20] MEDS: Morphine ORAL CONCENTRATE* 5 MG/0.25 ML ORAL.SYRIN PO PRN (04:55)
[2018-04-20] MEDS: Heparin VIAL(*) 5000 UNITS/ML VIAL (FIVE THOUSAND) SUBCUT SCH ×3 (05:19→22:05)
[2018-04-20] MEDS: diPHENhydraMINE PO* 25 MG PO PRN (07:17)
[2018-04-20 09:08] LABS: ABS Basophils 0.1 10^3/ul (0-0.2); ABS Eosinophils 0.4 10^3/ul (0-0.6); ABS Lymphocytes 1.8 10^3/ul (1.0-4.8); ABS Monocytes 0.8 10^3/ul (0-0.8); ABS Neutrophils 9.2 10^3/ul (1.5-7.7); ABS Nucleated RBC 0 10^3/ul; Eosinophil % 2.9 % (0-6); Hematocrit 28 % (42-52); Hemoglobin 9.5 g/dl (14.0-18.0); Lymphocyte % 14.7 % (25-47); Mean Corpuscular HGB Conc 34 g/dl (31-36); Mean Corpuscular Hemoglobin 30 pg (27-31); Mean Corpuscular Volume 88 fL (80-94); Mean Platelet Volume 6.7 um3 (7.4-10.4); Nucleated Red Blood Cells % 0; Platelet Count 332 10^3/ul (150-450); Red Cell Distribution Width 19 % (10.5-15); White Blood Count 12.3 10^3/ul (3.5-10.8)
[2018-04-20 09:23] LABS: EGFR Non-African American 92.1 (>60)
[2018-04-20] MEDS: Ascorbic Acid TAB* 500 MG PO SCH (09:32)
[2018-04-20] MEDS: DOXYcycline CAP(*) 100 MG PO SCH ×2 (09:34→20:12)
[2018-04-20] MEDS: OLANzapine TAB*ODT* 5 MG PO SCH ×2 (09:34→20:12)
[2018-04-20] MEDS: Metoprolol Succinate XL TAB* 50 MG PO SCH (09:34)
[2018-04-20] MEDS: Gabapentin CAP(*) 100 MG PO SCH ×2 (09:36→16:20)
[2018-04-20] MEDS: Magnesium Oxide TAB* 400 MG PO SCH ×2 (09:36→20:12)
[2018-04-20] MEDS: Nystatin TOP POWDER* 15 GM BTL TOPICAL SCH ×2 (09:37→22:07)
[2018-04-20] MEDS: Collagenase 250 MG/GM OINT* 30 GM TOPICAL SCH (16:20)
[2018-04-20] MEDS: Acetaminophen TAB* 325 MG PO PRN (16:46)
[2018-04-20] MEDS: tiZANidine TAB* 2 MG PO PRN (16:47)
[2018-04-20] MEDS: Atorvastatin* 10 MG TAB PO SCH (20:11)
--- NOTE | 2018-04-20 20:48 | PN ---
Subjective Date of Service: 04/20/18 Interval History: Patient seen, awake. pleasant. he was upset about his diet "was not getting enough"! I explained to him the importance to limit his potassium diet and the risk on his heart and cardiac arrhythmia. He did agree to cut back on his soda intake as he was drinking about 2 liters daily of diet soda. Also he was concerned about swelling of his left hip, and asked to see PT and evaluated by orthopedic realizing he missed his follow up with the orthopedic group in [place]. Otherwise; there was no concerns and denied nausea or vomiting Objective Active Medications: Acetaminophen (Tylenol Tab*) 650 mg PO Q4H PRN PRN Reason: PAIN/FEVER Last Admin: 04/20/18 16:46 Dose: 650 mg Al Hydrox/Mg Hydrox/Simethicone (Maalox Plus*) 30 ml PO Q6H PRN PRN Reason: INDIGESTION Albuterol (Ventolin 2.5 Mg/3 Ml Neb.Dayami*) 2.5 mg INH [id number] AWAKE PRN PRN Reason: SOB/WHEEZING Ascorbic Acid (Vitamin C Tab*) 1,000 mg PO DAILY [facility] Last Admin: 04/20/18 09:32 Dose: 1,000 mg Atorvastatin Calcium (Lipitor*) 10 mg PO 2100 [facility] Last Admin: 04/20/18 20:11 Dose: 10 mg Capsaicin (Zostrix 0.025% Cream*) 1 applic TOPICAL BID PRN PRN Reason: PAIN Collagenase (Santyl 250 Mg/Gm Oint*) 1 applic TOPICAL DAILY [facility] Last Admin: 04/20/18 16:20 Dose: 1 applic Diphenhydramine HCl (Benadryl Po*) 25 mg PO Q6H PRN PRN Reason: ITCHING Last Admin: 04/20/18 07:17 Dose: 25 mg Docusate Sodium (Colace Cap*) 100 mg PO BID PRN PRN Reason: CONSTIPATION Doxycycline Hyclate (Vibramycin Cap(*)) 100 mg PO BID [facility] Last Admin: 04/20/18 20:12 Dose: 100 mg Famotidine (Pepcid Tab*) 20 mg PO BID PRN PRN Reason: HEARTBURN Heparin Sodium (Porcine) (Heparin Vial(*)) 5,000 units SUBCUT Q8H [facility] Last Admin: 04/20/18 16:11 Dose: 5,000 units Magnesium Hydroxide (Milk Of Magnesia Liq*) 30 ml PO Q4H PRN PRN Reason: CONSTIPATION Magnesium Oxide (Magox 400 Tab*) 400 mg PO BID [facility] Last Admin: 04/20/18 20:12 Dose: 400 mg Melatonin (Melatonin) 3 mg PO BEDTIME PRN PRN Reason: SLEEP Metoprolol Succinate (Toprol Xl Tab*) 50 mg PO DAILY [facility] Last Admin: 04/20/18 09:34 Dose: 50 mg Morphine Sulfate (Morphine Oral Concentrate*) 5 mg PO Q8H PRN PRN Reason: PAIN Last Admin: 04/20/18 04:55 Dose: 5 mg Nystatin (Nystatin Top Powder*) 1 applic TOPICAL BID [facility] Last Admin: 04/20/18 09:37 Dose: 1 applic Olanzapine (Zyprexa * Tab Odt) 7.5 mg PO BID [facility] Last Admin: 04/20/18 20:12 Dose: 7.5 mg Polyethylene Glycol/Electrolytes (Miralax*) 17 gm PO DAILY PRN PRN Reason: CONSTIPATION Pregabalin (Lyrica Cap(*)) 25 mg PO TID [facility] Tizanidine HCl (Zanaflex Tab*) 4 mg PO QID PRN PRN Reason: SPASMS Last Admin: 04/20/18 16:47 Dose: 4 mg Vital Signs - 8 hr 04/20/18 04/20/18 16:18 20:00 Respiratory 16 16 Rate Pulse was in 130;s EKG ordered 04/20/18 - Sinus tachycardia, rate 109; WI 119 ms; QRS 88 ms; QTc 441 ms Oxygen Devices in Use Now: None Appearance: no distress, underweight. thin and lower extremety muscular hypotrophy Eyes: No Scleral Icterus, - - EOMI Ears/Nose/Mouth/Throat: Clear Oropharnyx, Mucous Membranes Moist Neck: NL Appearance and Movements; NL JVP, Trachea Midline Respiratory: Symmetrical Chest Expansion and Respiratory Effort, Clear to Auscultation Cardiovascular: NL Sounds; No Murmurs; No JVD, - - tacchycardic Abdominal: NL Sounds; No Tenderness; No Distention, - - suprabubic catheter Extremities: No Edema Skin: - - 2 ulcers Neurological: Alert and Oriented x 3 - Nutrition: Malnutrition Diagnosis/Plan Malnutrition Assessment by Registered Dietitian: Malnutrition Assessment Clinical Characteristics Acute,Severe Malnutrition Assessment: Moderate temporal muscle wasting and muscle Criteria wasting of upper extremities Underweight - BMI 16.9 Pt report of severe acute weight loss - 20% Malnutrition Assessment: Large portions especially of protein items and Interventions reasonable accomodation of pt's food preferences Malnutrition Assessment: Goals Adequate intake to promote wound healing and weight gain, while preserving lean body mass. Adequate intake to maintain hydration status. K levels to improve to WNL and maintain WNL. Tolerates least restrictive texture w/o difficulty chewing. Result Diagrams: 04/21/18 06:02 04/21/18 06:02 EKG Data: EKG ordered 04/20/18 - Sinus tachycardia, rate 109; WI 119 ms; QRS 88 ms; QTc 441 ms Assess/Plan/Problems-Billing Assessment: After extensive review of the available records (From [facility], [facility] and [facility]) on Mr Barth below is a brief summary of his assessment/plan: 52 y/o male with complex medical history including but no limited to recent: 1. MRSA bacteremia and MRSA UTI diagnosed on 02/24/18 at [facility] in [facility] placed on Vancomycin starting 02/27/18 2. Severe anemia and hypotension daignosed on 02/24/18 at [facility] in [facility] transfused total 4 units pRBC's 3. Left psoas muscle abscess s/p I&D by IR at [facility] in [facility] on 02/26/18 starting Vancomycin 02/27/18 4. Left Hip osteomyelitis underwent left femur excision and wash out 03/14/[address] Russell Petros [phone]; 5. Transferred to [facility] on 03/22/18 with the goal to complete 3 more weeks of IV vanco (for total of 6 weeks) 6. On 03/22/18 he was send to our ED form [facility] for suicidal thought and disruptive behavior, cleared and send back to [facility]. (Picc line was not functioning and missed Vanco from 03/22/18 -03/29/18). but he was placed on Keflex PO in the mean time from 03/24/18 - 03/29/18 7. On 03/29/18 He was send again to our ER for suicidal attempt by wrapping the bed to his neck attempting suicide! Admitted to medicine with psych consulting. Vanco was resumed from 03/29/18 -04/08/18. Doxycycline was placed on board from 04/09/18 - Present 8. Bioplar and suicidal history 9. Hyperlipidemia 10. GERD 11. HTN 12. Paraplegia (idiopathic as per patient) 13. GLAZE HANDLER shunt 14. Neurogenic bladder (swenson catheter exchanged on 04/08/18 by urology at [facility] need monthly exchange) 15. Decubitus ulcer stage 2 (seen by wound care nurse) 16. Diabetes Mellitus - Patient Problems (1) Osteomyelitis Current Visit: No Status: Acute Code(s): M86.9 - OSTEOMYELITIS, UNSPECIFIED SNOMED Code(s): 35760700 Comment: - Left Hip osteomyelitis underwent left femur excision and wash out 03/14/[address] Yvonne Morrell [phone] at [facility] in [place]; - Was on Vanco IV while @ [facility] from 02/27-03/22/18. Missed vanco from 03/22/18 - . Resumed Vanco from 03/29/18 - 04/08/18 - Currently on PO doxycycline 100 mg bid from 04/09/18 - present - He does have increase swelling of his left hip associated with increase ESR and CRP. I am concerned that he may getting reccurrent abcess or osteomyelitis. - I will obtain for CT abdomen and pelvis rule out recollections and the patient will need to follow up with ortho at [place] as he missed his 03/28/18 follow up appointment - On Burt mattress (2) Paraplegia Current Visit: No Status: Acute Code(s): G82.20 - PARAPLEGIA, UNSPECIFIED SNOMED Code(s): 64708755 Comment: - Patient tells me he was diagnosed with idiopathic paraplegia. - He does have GLAZE HANDLER shunt. - continue with his Zanaflex 4 mg QID. Lyrica 25 mg tid and morphine 4 mg Q8hrs prn - If his spams worsens we can consider resuming his Dantrolene 25 mg QID prn - Continue his sacral wound care, and preventions (3) Suicide attempt Current Visit: No Status: Acute Comment: - Per Dr. Romano, pt lacks capacity to decide for himself and will need to be placed but is stable regarding SI/HI that will not need BSU stay -Currently denies SI -Continue Olanzapine PO 7.5 mg BID -Off Zoloft as it more likely to exacerbate his bipolar (4) Tachycardia Current Visit: No Status: Acute Code(s): R00.0 - TACHYCARDIA, UNSPECIFIED SNOMED Code(s): 3734865 Comment: - Mailnly driven by his diet as he was taking at least 2 liter of diet soda every day - EKG confirms sinus tacchycardia - continue toprol 50 mg HS and it can be titrated upward if needed, but BP borderline - His lisinopril 5 mg remain on hold as his BP is stable and low normal on toprol 50 daily (5) GERD (gastroesophageal reflux disease) Current Visit: Yes Status: Acute Code(s): K21.9 - GASTRO-ESOPHAGEAL REFLUX DISEASE WITHOUT ESOPHAGITIS SNOMED Code(s): 094476248 Comment: - on famotidine prn only - Will place him on omeprazole 20 mg daily and d/c pepcid (6) Neurogenic bladder Current Visit: Yes Status: Acute Code(s): N31.9 - NEUROMUSCULAR DYSFUNCTION OF BLADDER, UNSPECIFIED SNOMED Code(s): 851105080 Comment: - He does have suprapubic catheter - As per patient the catheter was exchanged on 04/08/18 by urology here at [facility] - need to have it exchanged again by the end of this month and begnining of may and monthly thereafter - Vitamin C 1000 mg daily. - Known history of MRSA UTI and MRSA bactermia. (low treshold to reculture) - given his increase WBC, up in ESR and CRP I will send for UA and UC, BC x 2 (7) Decubitus skin ulcer Current Visit: Yes Status: Acute Code(s): L89.90 - PRESSURE ULCER OF UNSPECIFIED SITE, UNSPECIFIED STAGE SNOMED Code(s): 207846404 Comment: - Seen by wound care nurse. right ischium ulcer 2.6x2cm and R low back 1.2 x 1 cm - recommended santyl cover with adhesive tape (8) Diabetes Current Visit: Yes Status: Acute Code(s): E11.9 - TYPE 2 DIABETES MELLITUS WITHOUT COMPLICATIONS SNOMED Code(s): 14239687 Comment: - listed on his discharge form [facility]. - BG fluctuating - will check his A1c with next lab draw and will need to address appropiratley (9) Anemia Current Visit: Yes Status: Acute Code(s): D64.9 - ANEMIA, UNSPECIFIED SNOMED Code(s): 938342240 Comment: - Etiology unclear - Reviewing his records from [facility] he presented on 02/24/18 with hypotension and anemia and H/H 20/6.6. he did recieve 4 units total. - I did not see GI work up - I will send for iron studies, folate, B12; TSH/Ft4 and stool OB (need to follow up results) - will place him on PPI (10) Hyperlipidemia Current Visit: No Status: Acute Code(s): E78.5 - HYPERLIPIDEMIA, UNSPECIFIED SNOMED Code(s): 26050470 Comment: - Continue atorvastatin 10 mg hs (11) Hypertension Current Visit: No Status: Acute Code(s): I10 - ESSENTIAL (PRIMARY) HYPERTENSION SNOMED Code(s): 46485180 Comment: -Continue metoprolol, (12) DVT prophylaxis Current Visit: No Status: Acute Code(s): DFJ3313 - SNOMED Code(s): 753576307 Comment: - Heparin SQ
[2018-04-20] MEDS: Pregabalin CAP(*) 25 MG PO SCH (21:46)
[2018-04-21] MEDS: Heparin VIAL(*) 5000 UNITS/ML VIAL (FIVE THOUSAND) SUBCUT SCH ×3 (05:47→21:01)
[2018-04-21 06:11] LABS: Hematocrit 29 % (42-52); Hemoglobin 9.4 g/dl (14.0-18.0); Mean Corpuscular HGB Conc 33 g/dl (31-36); Mean Corpuscular Hemoglobin 29 pg (27-31); Mean Corpuscular Volume 89 fL (80-94); Platelet Count 323 10^3/ul (150-450); Red Blood Count 3.22 10^6/ul (4.00-5.40); Red Cell Distribution Width 18 % (10.5-15); White Blood Count 11.1 10^3/ul (3.5-10.8)
[2018-04-21 06:27] LABS: EGFR Non-African American 87.5 (>60)
[2018-04-21 06:39] LABS: ABS Basophils 0.1 10^3/ul (0-0.2); ABS Eosinophils 0.3 10^3/ul (0-0.6); ABS Lymphocytes 1.7 10^3/ul (1.0-4.8); ABS Monocytes 0.8 10^3/ul (0-0.8); ABS Neutrophils 8.2 10^3/ul (1.5-7.7); ABS Nucleated RBC 0 10^3/ul; Eosinophil % 2.8 % (0-6); Lymphocyte % 15.5 % (25-47); Nucleated Red Blood Cells % 0
[2018-04-21] MEDS: Acetaminophen TAB* 325 MG PO PRN (06:46)
[2018-04-21] MEDS: Metoprolol Succinate XL TAB* 50 MG PO SCH (09:26)
[2018-04-21] MEDS: DOXYcycline CAP(*) 100 MG PO SCH ×2 (09:26→20:55)
[2018-04-21] MEDS: Ascorbic Acid TAB* 500 MG PO SCH (09:27)
[2018-04-21] MEDS: OLANzapine TAB*ODT* 5 MG PO SCH ×2 (09:27→20:56)
[2018-04-21] MEDS: Nystatin TOP POWDER* 15 GM BTL TOPICAL SCH ×2 (09:27→20:34)
[2018-04-21] MEDS: Magnesium Oxide TAB* 400 MG PO SCH ×2 (09:27→20:55)
[2018-04-21] MEDS: Pregabalin CAP(*) 25 MG PO SCH ×3 (09:29→20:56)
[2018-04-21] MEDS: Collagenase 250 MG/GM OINT* 30 GM TOPICAL SCH (11:40)
[2018-04-21] MEDS ORDERED: Famotidine TAB* 20 MG PO ONE (16:11)
[2018-04-21] MEDS: DANTROLENE 25 MG PO SCH ×2 (17:38→20:57)
[2018-04-21] MEDS: Atorvastatin* 10 MG TAB PO SCH (20:56)
[2018-04-22] MEDS: Heparin VIAL(*) 5000 UNITS/ML VIAL (FIVE THOUSAND) SUBCUT SCH ×2 (06:24→14:34)
[2018-04-22] MEDS: Omeprazole CAP* 20 MG PO SCH (06:24)
[2018-04-22 06:36] LABS: Hematocrit 29 % (42-52); Hemoglobin 9.8 g/dl (14.0-18.0); Mean Corpuscular HGB Conc 34 g/dl (31-36); Mean Corpuscular Hemoglobin 30 pg (27-31); Mean Corpuscular Volume 89 fL (80-94); Platelet Count 335 10^3/ul (150-450); Red Cell Distribution Width 19 % (10.5-15); White Blood Count 9.9 10^3/ul (3.5-10.8)
[2018-04-22 06:48] LABS: ABS Neutrophils 7.4 10^3/ul (1.5-7.7)
[2018-04-22 06:53] LABS: EGFR Non-African American 79.4 (>60)
[2018-04-22 07:54] LABS: ABS Basophils 0.1 10^3/ul (0-0.2); ABS Eosinophils 0.3 10^3/ul (0-0.6); ABS Lymphocytes 1.4 10^3/ul (1.0-4.8); ABS Monocytes 0.6 10^3/ul (0-0.8); ABS Nucleated RBC 0 10^3/ul; Eosinophil % 3.4 % (0-6); Lymphocyte % 14.4 % (25-47); Nucleated Red Blood Cells % 0
[2018-04-22] MEDS: tiZANidine TAB* 2 MG PO PRN ×3 (09:08→20:19)
[2018-04-22] MEDS: Metoprolol Succinate XL TAB* 50 MG PO SCH (09:08)
[2018-04-22] MEDS: Magnesium Oxide TAB* 400 MG PO SCH ×2 (09:08→20:22)
[2018-04-22] MEDS: DOXYcycline CAP(*) 100 MG PO SCH ×2 (09:09→20:23)
[2018-04-22] MEDS: Ascorbic Acid TAB* 500 MG PO SCH (09:09)
[2018-04-22] MEDS: Nystatin TOP POWDER* 15 GM BTL TOPICAL SCH (09:10)
[2018-04-22] MEDS: Pregabalin CAP(*) 25 MG PO SCH ×3 (09:10→20:22)
[2018-04-22] MEDS: Collagenase 250 MG/GM OINT* 30 GM TOPICAL SCH (09:10)
[2018-04-22] MEDS: DANTROLENE 25 MG PO SCH ×3 (09:10→20:19)
[2018-04-22] MEDS: OLANzapine TAB*ODT* 5 MG PO SCH ×2 (09:22→20:20)
--- NOTE | 2018-04-22 11:18 | RAD ---
HISTORY: hx left girdlestone COMPARISONS: None VIEWS: 3 , Frontal view of the pelvis with frontal and frog-leg views of the left hip FINDINGS: BONE DENSITY: There is diffuse osteopenia. BONES: The patient is status post resection of the left femoral head and neck. There is periosteal reaction suggestive of pseudoarthrosis formation. JOINTS: There is advanced osteoarthritis of the right hip. ALIGNMENT: There is no dislocation. SOFT TISSUES: Unremarkable. OTHER FINDINGS: The patient's tubing is noted. A bladder catheter is noted. IMPRESSION: 1. STATUS POST SURGICAL RESECTION OF THE LEFT FEMORAL HEAD AND NECK. 2. OSTEOPENIA. 3. OSTEOARTHRITIS.
--- NOTE | 2018-04-22 11:27 | CONSULT ---
Identification - Patient Identification Reason for Psychiatric Consultation: Suicidal Ideation -: Patient is a 52 year old, M admitted on 04/17/18. - MHU Identification Employment Status: Disabled Hx Psychiatric Hospitalization: Yes History - Objective HPI: Gabriel remains in good spirits. He has been given a computer tablet with WiFi as well as a cell phone and has been strongly advocating for himself by calling various rehabilitation facilities throughout the and requesting acceptance. He denies SI and is future-oriented with a good sense of humor. Exam Appearance: Thin Framed Hygiene: Normal Grooming: Fairly Well Kept Psychomotor Activities: Normal Exhibits Abnormal Movement: No Attitude and Relatedness: Cooperative Eye Contact: Good - Speech Quality: Unpressured Latencies: Normal Quantity: Appropriate Patient's Decription of Mood: "Good" Observed Affect: Good Affect Consistent with: Euthymia Patient's Thought Process: Coherent Thought Content: No Passive Wish, No Suicidal Planning, No Homicidal Ideation, No Paranoid Ideation Experiencing Hallucinations: No, Sensorium is Clear Type of Hallucinations: Visual: No, Auditory: No, Command: No Level of Consciousness: Alert Orientation: Yes Intact, Yes Orientated to Time, Yes Orientated to Place, Yes Orientated to Person Impulse Control: Intact Insight and Judgement: Good Impression - Impression Clinical Impression: 52 y.o. , white male with paraplegia, arrives on 9.41 from [facility] following a suicidal gesture in which he tied a sheet around his neck and gestured to hang himself. Inpatient DSM-V Dx: F31.74 Merits Inpatient Hospitalization: No Problem List - MHU Problems Type of Problem: Mood Status of Problem: Resolved Plan - Treatment Plan Treatment Plan: The patient has greatly improved on olanzapine 7.5mg PO BID. He is psychiatrically cleared for discharge and is awaiting placement. Psychiatry will continue to follow. Continued Medication Management: Start Medication Medications: Current Medications Acetaminophen (Tylenol Tab*) 650 mg PO Q4H PRN PRN Reason: PAIN/FEVER Last Admin: 04/21/18 06:46 Dose: 650 mg Al Hydrox/Mg Hydrox/Simethicone (Maalox Plus*) 30 ml PO Q6H PRN PRN Reason: INDIGESTION Albuterol (Ventolin 2.5 Mg/3 Ml Neb.Dayami*) 2.5 mg INH [id number] AWAKE PRN PRN Reason: SOB/WHEEZING Ascorbic Acid (Vitamin C Tab*) 1,000 mg PO DAILY [facility] Last Admin: 04/22/18 09:09 Dose: 1,000 mg Atorvastatin Calcium (Lipitor*) 10 mg PO 2100 [facility] Last Admin: 04/21/18 20:56 Dose: 10 mg Capsaicin (Zostrix 0.025% Cream*) 1 applic TOPICAL BID PRN PRN Reason: PAIN Collagenase (Santyl 250 Mg/Gm Oint*) 1 applic TOPICAL DAILY [facility] Last Admin: 04/22/18 09:10 Dose: 1 applic Dantrolene Sodium (Dantrium Cap*) 25 mg PO TID [facility] Last Admin: 04/22/18 09:10 Dose: 25 mg Diphenhydramine HCl (Benadryl Po*) 25 mg PO Q6H PRN PRN Reason: ITCHING Last Admin: 04/20/18 07:17 Dose: 25 mg Docusate Sodium (Colace Cap*) 100 mg PO BID PRN PRN Reason: CONSTIPATION Doxycycline Hyclate (Vibramycin Cap(*)) 100 mg PO BID [facility] Last Admin: 04/22/18 09:09 Dose: 100 mg Heparin Sodium (Porcine) (Heparin Vial(*)) 5,000 units SUBCUT Q8H [facility] Last Admin: 04/22/18 06:24 Dose: 5,000 units Magnesium Hydroxide (Milk Of Magnesia Liq*) 30 ml PO Q4H PRN PRN Reason: CONSTIPATION Magnesium Oxide (Magox 400 Tab*) 400 mg PO BID [facility] Last Admin: 04/22/18 09:08 Dose: 400 mg Melatonin (Melatonin) 3 mg PO BEDTIME PRN PRN Reason: SLEEP Metoprolol Succinate (Toprol Xl Tab*) 50 mg PO DAILY [facility] Last Admin: 04/22/18 09:08 Dose: 50 mg Morphine Sulfate (Morphine Oral Concentrate*) 5 mg PO Q8H PRN PRN Reason: PAIN Last Admin: 04/20/18 04:55 Dose: 5 mg Nystatin (Nystatin Top Powder*) 1 applic TOPICAL BID [facility] Last Admin: 04/22/18 09:10 Dose: 1 applic Olanzapine (Zyprexa * Tab Odt) 7.5 mg PO BID [facility] Last Admin: 04/22/18 09:22 Dose: 7.5 mg Omeprazole (Prilosec Cap*) 20 mg PO DAILY@0600 [facility] Last Admin: 04/22/18 06:24 Dose: 20 mg Polyethylene Glycol/Electrolytes (Miralax*) 17 gm PO DAILY PRN PRN Reason: CONSTIPATION Pregabalin (Lyrica Cap(*)) 25 mg PO TID [facility] Last Admin: 04/22/18 09:10 Dose: 25 mg Tizanidine HCl (Zanaflex Tab*) 4 mg PO QID PRN PRN Reason: SPASMS Last Admin: 04/22/18 09:08 Dose: 4 mg - Discharge Plan Discharge Plan: Outpatient Follow Up
--- NOTE | 2018-04-22 12:36 | CONS ---
CONSULTATION REPORT: DATE OF CONSULT: 04/22/18 REQUESTING PROVIDER: Jovana Goel NP CONSULTING SERVICE: Infectious Disease. REASON FOR CONSULT: Left hip infection. IMPRESSION: 1. 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 There was also apparently an associated pyomyositis. This in the setting of a suprapubic catheter. 2. Idiopathic T7 paralysis. RECOMMENDATIONS: Continue doxycycline. He has had a CRP, which is in the 27 range. We will start with an x-ray of his left hip and femur to see how much bone is left. If there was extensive resection, then he may not need a long course of oral antibiotics following the IV. If significant bone is left near the hip joint, then we will plan on a longer course of oral antibiotics. HISTORY OF PRESENT ILLNESS: This is a 52-year-old man with paraplegia, was hospitalized in end of February in [place] for MRSA infection of the left hip, he was treated with vancomycin, aspiration of the hip and the psoas muscle due to MRSA. Because of progression of the infection based on radiographic studies , he eventually had a left hip femoral neck excision on March 14. He had been followed by [facility] in [place] and treated with vancomycin through that time. He was discharged to [facility] for rehab where he had about a month of vancomycin post surgery. He had a suicidal gesture, [facility] Service admitted here. The left hip incision has healed. He does not have sensation in the hip area or pelvis. He had a C-reactive protein drawn here and he was at [facility] at the end of March, it was 43, it was 33 on the , down to 23 on the . He has no fever, chills, or sweats. PAST MEDICAL HISTORY: 1. Paraplegia. 2. MRSA abscess, left hip, with chronic osteomyelitis, status Girdlestone. 3. Status post suprapubic urinary catheter. 4. Transurethral resection of prostate. 5. Status post [employer] shunt x2. 6. History of pancreatitis. 7. Gastroesophageal reflux disease. 8. Hyponatremia. 9. Bipolar disorder. 10. History of decubitus ulceration. 11. Hypertension. 12. Status post posterior cervical fusion. MEDICATIONS: 1. Tylenol. 2. Vitamin C. 3. Lipitor. 4. Doxycycline 100 mg by mouth twice a day. 5. Famotidine/heparin subcutaneous injection. 6. Morphine. 7. Omeprazole. 8. Olanzapine. 9. Tizanidine. ALLERGIES: OXYCODONE. FAMILY HISTORY: No recurrent infections. SOCIAL HISTORY: He has been living at [facility]. He has been living in that area. He is a nonsmoker. No injection drugs recently. REVIEW OF SYSTEMS: All negative except as noted above to a 14-point review of systems. PHYSICAL EXAM: Vital Signs: Temperature is 36.6, heart rate is 66, respiratory rate 12, blood pressure 124/79, oxygen saturation 100% on room air. In general, he is awake, not in distress. Neurologic: He is oriented x3, follows all commands. HEENT: There is no conjunctival hemorrhage. Oropharynx without lesions. Neck is supple without mass. Abdomen: Soft, nontender, nondistended. There is a suprapubic catheter without surrounding erythema. Skin: There is no rash or splinter hemorrhage. Musculoskeletal: No spine tenderness to palpation. There is a left hip incision, which has healed. LABORATORY DATA: White blood cell count is 9, hemoglobin 9, platelets 355. Creatinine is 0.9. CRP is 23. Please see impressions and recommendations as outlined above. Thanks for asking me to see Mr. Barth in consultation. [id number]/[facility] #: [id number] HUGO
[2018-04-22] MEDS: Atorvastatin* 10 MG TAB PO SCH (20:23)
[2018-04-23] MEDS: Acetaminophen TAB* 325 MG PO PRN ×2 (03:47→08:58)
[2018-04-23] MEDS: Morphine ORAL CONCENTRATE* 5 MG/0.25 ML ORAL.SYRIN PO PRN ×2 (03:48→12:11)
[2018-04-23] MEDS: Nystatin TOP POWDER* 15 GM BTL TOPICAL SCH ×3 (04:02→22:33)
[2018-04-23] MEDS: Heparin VIAL(*) 5000 UNITS/ML VIAL (FIVE THOUSAND) SUBCUT SCH ×4 (04:03→22:42)
[2018-04-23] MEDS: Omeprazole CAP* 20 MG PO SCH (04:04)
[2018-04-23 07:22] LABS: EGFR Non-African American 61.8 (>60)
[2018-04-23] MEDS: DOXYcycline CAP(*) 100 MG PO SCH ×2 (08:55→22:33)
[2018-04-23] MEDS: tiZANidine TAB* 2 MG PO PRN (08:56)
[2018-04-23] MEDS: Metoprolol Succinate XL TAB* 50 MG PO SCH ×2 (08:56→08:57)
[2018-04-23] MEDS: Pregabalin CAP(*) 25 MG PO SCH ×3 (08:58→22:41)
[2018-04-23] MEDS: Ascorbic Acid TAB* 500 MG PO SCH (08:59)
[2018-04-23] MEDS: Collagenase 250 MG/GM OINT* 30 GM TOPICAL SCH (08:59)
[2018-04-23] MEDS: OLANzapine TAB*ODT* 5 MG PO SCH ×2 (09:00→22:41)
[2018-04-23] MEDS: Magnesium Oxide TAB* 400 MG PO SCH ×2 (09:02→22:33)
[2018-04-23] MEDS: DANTROLENE 25 MG PO SCH ×3 (09:02→22:33)
--- NOTE | 2018-04-23 14:00 | CONSULT ---
Identification - Patient Identification Reason for Psychiatric Consultation: Suicidal Ideation -: Patient is a 52 year old, M admitted on 04/17/18. - MHU Identification Employment Status: Disabled Hx Psychiatric Hospitalization: Yes History - Objective HPI: Gabriel continues to be future-oriented and motivated to find a new place to live and to get out of the hospital. He has been demonstrating self-directed, goal- related behavior, calling various rehabs and nursing facilities and advocating for himself. He continues to deny SI. Exam Appearance: Thin Framed Hygiene: Normal Grooming: Fairly Well Kept Psychomotor Activities: Normal Exhibits Abnormal Movement: No Attitude and Relatedness: Cooperative Eye Contact: Good - Speech Quality: Unpressured Latencies: Normal Quantity: Appropriate Patient's Decription of Mood: "Good" Observed Affect: Good Affect Consistent with: Euthymia Patient's Thought Process: Coherent Thought Content: No Passive Wish, No Suicidal Planning, No Homicidal Ideation, No Paranoid Ideation Experiencing Hallucinations: No, Sensorium is Clear Type of Hallucinations: Visual: No, Auditory: No, Command: No Level of Consciousness: Alert Orientation: Yes Intact, Yes Orientated to Time, Yes Orientated to Place, Yes Orientated to Person Impulse Control: Intact Insight and Judgement: Good Impression - Impression Clinical Impression: 52 y.o. , white male with paraplegia, arrives on 9.41 from [facility] following a suicidal gesture in which he tied a sheet around his neck and gestured to hang himself. Inpatient DSM-V Dx: F31.74 Merits Inpatient Hospitalization: No Problem List - MHU Problems Type of Problem: Mood Status of Problem: Resolved Plan - Treatment Plan Treatment Plan: The patient has greatly improved on olanzapine 7.5mg PO BID and is agreeable to continue taking this. His suicidal gesture, leading to this hospitalization, was transient and done out of frustration. His attitude is far more positive and pro-social at this time and he is sustaining this as we move forward. He is psychiatrically cleared for discharge and is awaiting placement. Psychiatry will continue to follow. Continued Medication Management: Start Medication Medications: Current Medications Acetaminophen (Tylenol Tab*) 650 mg PO Q4H PRN PRN Reason: PAIN/FEVER Last Admin: 04/23/18 08:58 Dose: 650 mg Al Hydrox/Mg Hydrox/Simethicone (Maalox Plus*) 30 ml PO Q6H PRN PRN Reason: INDIGESTION Albuterol (Ventolin 2.5 Mg/3 Ml Neb.Dayami*) 2.5 mg INH [id number] AWAKE PRN PRN Reason: SOB/WHEEZING Ascorbic Acid (Vitamin C Tab*) 1,000 mg PO DAILY [facility] Last Admin: 04/23/18 08:59 Dose: 1,000 mg Atorvastatin Calcium (Lipitor*) 10 mg PO 2100 [facility] Last Admin: 04/22/18 20:23 Dose: 10 mg Capsaicin (Zostrix 0.025% Cream*) 1 applic TOPICAL BID PRN PRN Reason: PAIN Collagenase (Santyl 250 Mg/Gm Oint*) 1 applic TOPICAL DAILY [facility] Last Admin: 04/23/18 08:59 Dose: 1 applic Dantrolene Sodium (Dantrium Cap*) 25 mg PO TID [facility] Last Admin: 04/23/18 09:02 Dose: 25 mg Diphenhydramine HCl (Benadryl Po*) 25 mg PO Q6H PRN PRN Reason: ITCHING Last Admin: 04/20/18 07:17 Dose: 25 mg Docusate Sodium (Colace Cap*) 100 mg PO BID PRN PRN Reason: CONSTIPATION Doxycycline Hyclate (Vibramycin Cap(*)) 100 mg PO BID [facility] Last Admin: 04/23/18 08:55 Dose: 100 mg Heparin Sodium (Porcine) (Heparin Vial(*)) 5,000 units SUBCUT Q8H [facility] Last Admin: 04/23/18 05:32 Dose: Not Given Magnesium Hydroxide (Milk Of Magnesia Liq*) 30 ml PO Q4H PRN PRN Reason: CONSTIPATION Magnesium Oxide (Magox 400 Tab*) 400 mg PO BID [facility] Last Admin: 04/23/18 09:02 Dose: 400 mg Melatonin (Melatonin) 3 mg PO BEDTIME PRN PRN Reason: SLEEP Metoprolol Succinate (Toprol Xl Tab*) 50 mg PO DAILY [facility] Last Admin: 04/23/18 08:57 Dose: Not Given Morphine Sulfate (Morphine Oral Concentrate*) 5 mg PO Q8H PRN PRN Reason: PAIN Last Admin: 04/23/18 12:11 Dose: 5 mg Nystatin (Nystatin Top Powder*) 1 applic TOPICAL BID [facility] Last Admin: 04/23/18 09:03 Dose: 1 applic Olanzapine (Zyprexa * Tab Odt) 7.5 mg PO BID [facility] Last Admin: 04/23/18 09:00 Dose: 7.5 mg Omeprazole (Prilosec Cap*) 20 mg PO DAILY@0600 [facility] Last Admin: 04/23/18 04:04 Dose: 20 mg Polyethylene Glycol/Electrolytes (Miralax*) 17 gm PO DAILY PRN PRN Reason: CONSTIPATION Pregabalin (Lyrica Cap(*)) 25 mg PO TID [facility] Last Admin: 04/23/18 08:58 Dose: 25 mg Tizanidine HCl (Zanaflex Tab*) 4 mg PO QID PRN PRN Reason: SPASMS Last Admin: 04/23/18 08:56 Dose: 4 mg - Discharge Plan Discharge Plan: Outpatient Follow Up
[2018-04-23] MEDS ORDERED: Sodium Polystyrene ORAL.SOL* 15 GM/60 ML BTL PO ONE (15:29)
--- NOTE | 2018-04-23 17:57 | PN ---
Hospitalist Progress Note Date of Service: 04/23/18 Laboratory Tests 04/19/18 04/20/18 04/21/18 06:33 08:58 06:02 Potassium 5.1 H 5.4 H 4.8 BUN Creatinine 04/22/18 04/23/18 06:24 06:28 Potassium 5.4 H 5.4 H BUN 34 H 42 H Creatinine 0.99 1.23 H K+ elevated for last 2 days @ 5.4. This didn't resolve overnight, so ordered Kayexalate today. No EKG changes. Pt also with increase in BUN and creatinine today. Suspect secondary to dietary intake vs renal cause. Pt is declining the Kayexalate. Will check FeNA. Microbiology 04/22/18 07:03 Urine Urine Culture - Preliminary Klebsiella Pneumoniae Pt also with a positive urine culture in the setting of a suprapubic catheter. Afebrile and no leukocytosis (resolved yesterday, he is recovering from MRSA bacteremia and UTI along with osteomyelitis), suspect this could represent a colonization. Will hold on ABX and recheck UA and culture.
[2018-04-23] MEDS: Atorvastatin* 10 MG TAB PO SCH (22:42)
[2018-04-24] MEDS: tiZANidine TAB* 2 MG PO PRN ×2 (00:52→20:45)
[2018-04-24] MEDS: Magnesium Oxide TAB* 400 MG PO SCH ×3 (00:52→20:41)
[2018-04-24] MEDS: Atorvastatin* 10 MG TAB PO SCH ×2 (00:52→20:40)
[2018-04-24] MEDS: DOXYcycline CAP(*) 100 MG PO SCH ×3 (00:58→20:40)
[2018-04-24] MEDS: Heparin VIAL(*) 5000 UNITS/ML VIAL (FIVE THOUSAND) SUBCUT SCH ×4 (00:58→23:15)
[2018-04-24] MEDS: Acetaminophen TAB* 325 MG PO PRN ×2 (01:00→20:43)
[2018-04-24] MEDS: OLANzapine TAB*ODT* 5 MG PO SCH ×3 (01:00→20:39)
[2018-04-24] MEDS: Pregabalin CAP(*) 25 MG PO SCH ×4 (01:01→20:41)
[2018-04-24] MEDS: DANTROLENE 25 MG PO SCH ×4 (01:02→20:41)
[2018-04-24] MEDS: Morphine ORAL CONCENTRATE* 5 MG/0.25 ML ORAL.SYRIN PO PRN (01:10)
[2018-04-24 02:19] LABS: Urine Appearance Cloudy; Urine Blood Negative (Negative); Urine Color Straw; Urine Ketones Negative (Negative); Urine Protein Negative (Negative); Urine Red Blood Cell Absent (Absent); Urine Specific Gravity 1.009 (1.010-1.030); Urine Urobilinogen Negative (Negative); Urine White Blood Cell 3+(>20/hpf) (Absent)
[2018-04-24] MEDS: Omeprazole CAP* 20 MG PO SCH (06:01)
[2018-04-24 07:38] LABS: EGFR Non-African American 85.3 (>60)
--- NOTE | 2018-04-24 09:48 | PN ---
Progress Note - Progress Note Date of Service: 04/24/18 SOAP: Subjective: CC: left hip infection HPI: 52 year old man with recent MRSA infection of left femur s/p resection of femoral head. He continues on doxycycline and feels well. No left thigh or hip symptoms though he has a spinal level above that region. No fever, rash, or diarrhea. Objective: Vital Signs Temp 36.4 C 04/24/18 08:27 Pulse 121 04/24/18 08:27 Resp 16 04/24/18 08:27 BP 121/68 04/24/18 08:27 Pulse Ox 100 04/24/18 08:27 Intake & Output 04/23/18 04/24/18 04/24/18 18:59 06:59 18:59 Intake Total 2320 0 Output Total 4850 2800 1100 Balance -2530 -2800 -1100 Intake: Oral 2320 0 Output: Urine 2800 1100 Swenson 4850 Other: # Bowel Movements 0 Gen:Awake, no distress HEENT: no thrush Heart:RRR no murmur Lungs:CTA BL Abd:+BS NTND soft Skin: no rash MSK: no spine tenderness; left hip incision is healed Laboratory Results - last 24 hr 04/24/18 04/24/18 04/24/18 02:00 02:00 06:47 Sodium 134 L Chloride 104 Carbon Dioxide 23 BUN 37 H Creatinine 0.93 Est GFR ( Amer) 103.2 Est GFR (Non-Af Amer) 85.3 BUN/Creatinine Ratio 39.8 H Glucose 143 H Calcium 8.5 L Urine Color Straw Urine Appearance Cloudy Urine pH 5.0 Ur Specific [place] 1.009 L Urine Protein Negative Urine Ketones Negative Urine Blood Negative Urine Nitrate Positive A Urine Bilirubin Negative Urine Urobilinogen Negative Ur Leukocyte Esterase 3+ A Urine WBC (Auto) 3+(>20/hpf) A Urine RBC (Auto) Absent Urine Bacteria 1+ A Ur Random Creatinine 23.41 Ur Random Sodium 88 Urine Glucose Negative Urine Ascorbic Acid * A Assessment: 1. left hip MRSA chronic osteomyelitis s/p femoral head resection 2. asymptomatic bacteruria in setting of chronic swenson catheter Plan: 1. doxycycline 200 mg po bid for 3-6 months with monthly cbc, cmp, crp. We discussed that he is not a candidate for arthroplasty and that it is not clear it would help him given his paraplegia. 35 minutes floor time >50% face to face in counseling regarding lobsterman plans for his hip infection
[2018-04-24] MEDS: Ascorbic Acid TAB* 500 MG PO SCH (10:15)
[2018-04-24] MEDS: Metoprolol Succinate XL TAB* 50 MG PO SCH (10:16)
[2018-04-24] MEDS: Collagenase 250 MG/GM OINT* 30 GM TOPICAL SCH (10:21)
[2018-04-24] MEDS: Nystatin TOP POWDER* 15 GM BTL TOPICAL SCH ×2 (10:21→21:00)
--- NOTE | 2018-04-24 14:14 | CONSULT ---
Identification - Patient Identification Reason for Psychiatric Consultation: Suicidal Ideation -: Patient is a 52 year old, M admitted on 04/17/18. - MHU Identification Employment Status: Disabled Hx Psychiatric Hospitalization: Yes History - Objective HPI: Gabriel continues to be calm, cooperative and expressive. He denies SI and is looking forward to discharge, pending placement. Exam Appearance: Thin Framed Hygiene: Normal Grooming: Fairly Well Kept Psychomotor Activities: Normal Exhibits Abnormal Movement: No Attitude and Relatedness: Cooperative Eye Contact: Good - Speech Quality: Unpressured Latencies: Normal Quantity: Appropriate Patient's Decription of Mood: "Good" Observed Affect: Good Affect Consistent with: Euthymia Patient's Thought Process: Coherent Thought Content: No Passive Wish, No Suicidal Planning, No Homicidal Ideation, No Paranoid Ideation Experiencing Hallucinations: No, Sensorium is Clear Type of Hallucinations: Visual: No, Auditory: No, Command: No Level of Consciousness: Alert Orientation: Yes Intact, Yes Orientated to Time, Yes Orientated to Place, Yes Orientated to Person Impulse Control: Intact Insight and Judgement: Good Impression - Impression Clinical Impression: 52 y.o. , white male with paraplegia, arrives on 9.41 from [facility] following a suicidal gesture in which he tied a sheet around his neck and gestured to hang himself. Inpatient DSM-V Dx: F31.74 Merits Inpatient Hospitalization: No Problem List - MHU Problems Type of Problem: Mood Status of Problem: Resolved Plan - Treatment Plan Treatment Plan: The patient has greatly improved on olanzapine 7.5mg PO BID and is agreeable to continue taking this. His suicidal gesture, leading to this hospitalization, was transient and done out of frustration. His attitude is far more positive and pro-social at this time and he is sustaining this as we move forward. He is psychiatrically cleared for discharge and is awaiting placement. Psychiatry will continue to follow. Continued Medication Management: Start Medication Medications: Current Medications Acetaminophen (Tylenol Tab*) 650 mg PO Q4H PRN PRN Reason: PAIN/FEVER Last Admin: 04/24/18 01:00 Dose: 650 mg Al Hydrox/Mg Hydrox/Simethicone (Maalox Plus*) 30 ml PO Q6H PRN PRN Reason: INDIGESTION Albuterol (Ventolin 2.5 Mg/3 Ml Neb.Dayami*) 2.5 mg INH [id number] AWAKE PRN PRN Reason: SOB/WHEEZING Ascorbic Acid (Vitamin C Tab*) 1,000 mg PO DAILY [facility] Last Admin: 04/24/18 10:15 Dose: 1,000 mg Atorvastatin Calcium (Lipitor*) 10 mg PO 2100 [facility] Last Admin: 04/24/18 00:52 Dose: 10 mg Capsaicin (Zostrix 0.025% Cream*) 1 applic TOPICAL BID PRN PRN Reason: PAIN Collagenase (Santyl 250 Mg/Gm Oint*) 1 applic TOPICAL DAILY [facility] Last Admin: 04/24/18 10:21 Dose: 1 applic Dantrolene Sodium (Dantrium Cap*) 25 mg PO TID [facility] Last Admin: 04/24/18 10:17 Dose: 25 mg Diphenhydramine HCl (Benadryl Po*) 25 mg PO Q6H PRN PRN Reason: ITCHING Last Admin: 04/20/18 07:17 Dose: 25 mg Docusate Sodium (Colace Cap*) 100 mg PO BID PRN PRN Reason: CONSTIPATION Doxycycline Hyclate (Vibramycin Cap(*)) 100 mg PO BID [facility] Last Admin: 04/24/18 10:19 Dose: 100 mg Heparin Sodium (Porcine) (Heparin Vial(*)) 5,000 units SUBCUT Q8H [facility] Last Admin: 04/24/18 06:01 Dose: 5,000 units Magnesium Hydroxide (Milk Of Magnesia Liq*) 30 ml PO Q4H PRN PRN Reason: CONSTIPATION Magnesium Oxide (Magox 400 Tab*) 400 mg PO BID [facility] Last Admin: 04/24/18 10:16 Dose: 400 mg Melatonin (Melatonin) 3 mg PO BEDTIME PRN PRN Reason: SLEEP Metoprolol Succinate (Toprol Xl Tab*) 50 mg PO DAILY [facility] Last Admin: 04/24/18 10:16 Dose: 50 mg Morphine Sulfate (Morphine Oral Concentrate*) 5 mg PO Q8H PRN PRN Reason: PAIN Last Admin: 04/24/18 01:10 Dose: 5 mg Nystatin (Nystatin Top Powder*) 1 applic TOPICAL BID [facility] Last Admin: 04/24/18 10:21 Dose: 1 applic Olanzapine (Zyprexa * Tab Odt) 7.5 mg PO BID [facility] Last Admin: 04/24/18 10:14 Dose: 7.5 mg Omeprazole (Prilosec Cap*) 20 mg PO DAILY@0600 [facility] Last Admin: 04/24/18 06:01 Dose: 20 mg Polyethylene Glycol/Electrolytes (Miralax*) 17 gm PO DAILY PRN PRN Reason: CONSTIPATION Pregabalin (Lyrica Cap(*)) 25 mg PO TID [facility] Last Admin: 04/24/18 10:16 Dose: 25 mg Tizanidine HCl (Zanaflex Tab*) 4 mg PO QID PRN PRN Reason: SPASMS Last Admin: 04/24/18 00:52 Dose: 4 mg - Discharge Plan Discharge Plan: Outpatient Follow Up
[2018-04-25] MEDS: traMADol TAB* 50 MG PO PRN (05:21)
[2018-04-25] MEDS: Omeprazole CAP* 20 MG PO SCH (05:22)
[2018-04-25] MEDS: Heparin VIAL(*) 5000 UNITS/ML VIAL (FIVE THOUSAND) SUBCUT SCH ×3 (10:06→23:06)
[2018-04-25] MEDS: Metoprolol Succinate XL TAB* 50 MG PO SCH (10:06)
[2018-04-25] MEDS: Pregabalin CAP(*) 25 MG PO SCH ×3 (10:07→23:05)
[2018-04-25] MEDS: tiZANidine TAB* 2 MG PO PRN (10:08)
[2018-04-25] MEDS: DOXYcycline CAP(*) 100 MG PO SCH ×2 (10:09→23:02)
[2018-04-25] MEDS: Ascorbic Acid TAB* 500 MG PO SCH (10:09)
[2018-04-25] MEDS: Collagenase 250 MG/GM OINT* 30 GM TOPICAL SCH (10:09)
[2018-04-25] MEDS: Magnesium Oxide TAB* 400 MG PO SCH ×2 (10:09→23:02)
[2018-04-25] MEDS: DANTROLENE 25 MG PO SCH ×3 (10:09→23:02)
[2018-04-25] MEDS: Nystatin TOP POWDER* 15 GM BTL TOPICAL SCH ×2 (10:10→23:06)
[2018-04-25] MEDS: OLANzapine TAB*ODT* 5 MG PO SCH ×2 (10:15→23:03)
[2018-04-25] MEDS: Atorvastatin* 10 MG TAB PO SCH (23:02)
[2018-04-26] MEDS: Acetaminophen TAB* 325 MG PO PRN ×2 (02:53→21:54)
[2018-04-26] MEDS: Heparin VIAL(*) 5000 UNITS/ML VIAL (FIVE THOUSAND) SUBCUT SCH ×3 (06:18→21:56)
[2018-04-26] MEDS: Omeprazole CAP* 20 MG PO SCH (06:18)
[2018-04-26] MEDS: Ascorbic Acid TAB* 500 MG PO SCH (09:17)
[2018-04-26] MEDS: Pregabalin CAP(*) 25 MG PO SCH ×3 (09:17→21:44)
[2018-04-26] MEDS: DOXYcycline CAP(*) 100 MG PO SCH ×2 (09:17→21:44)
[2018-04-26] MEDS: Magnesium Oxide TAB* 400 MG PO SCH ×2 (09:17→21:46)
[2018-04-26] MEDS: tiZANidine TAB* 2 MG PO PRN ×3 (09:17→21:54)
[2018-04-26] MEDS: Metoprolol Succinate XL TAB* 50 MG PO SCH (09:17)
[2018-04-26] MEDS: Nystatin TOP POWDER* 15 GM BTL TOPICAL SCH ×2 (09:18→21:47)
[2018-04-26] MEDS: DANTROLENE 25 MG PO SCH ×3 (09:18→21:44)
[2018-04-26] MEDS: OLANzapine TAB*ODT* 5 MG PO SCH ×2 (09:18→21:44)
[2018-04-26] MEDS: Collagenase 250 MG/GM OINT* 30 GM TOPICAL SCH (09:18)
--- NOTE | 2018-04-26 12:13 | CONSULT ---
Identification - Patient Identification Reason for Psychiatric Consultation: Other -: Patient is a 52 year old, M admitted on 04/17/18. - MHU Identification Employment Status: Disabled Hx Psychiatric Hospitalization: Yes History - Objective HPI: Gabriel presents as polite and low-gonzalez. He is calm and respectful with normal rate/tone and volume to his speech, which is a great improvement over his initial presentation. He denies SI and is looking forward to discharge, pending placement. Exam Appearance: Thin Framed Hygiene: Normal Grooming: Fairly Well Kept Psychomotor Activities: Normal Exhibits Abnormal Movement: No Attitude and Relatedness: Cooperative Eye Contact: Good - Speech Quality: Unpressured Latencies: Normal Quantity: Appropriate Patient's Decription of Mood: "Good" Observed Affect: Good Affect Consistent with: Euthymia Patient's Thought Process: Coherent Thought Content: No Passive Wish, No Suicidal Planning, No Homicidal Ideation, No Paranoid Ideation Experiencing Hallucinations: No, Sensorium is Clear Type of Hallucinations: Visual: No, Auditory: No, Command: No Level of Consciousness: Alert Orientation: Yes Intact, Yes Orientated to Time, Yes Orientated to Place, Yes Orientated to Person Impulse Control: Intact Insight and Judgement: Good Impression - Impression Clinical Impression: 52 y.o. , white male with paraplegia, arrives on 9.[address] [facility] following a suicidal gesture in which he tied a sheet around his neck and gestured to hang himself. Inpatient DSM-V Dx: F31.74 Merits Inpatient Hospitalization: No Problem List - MHU Problems Type of Problem: Mood Status of Problem: Resolved Plan - Treatment Plan Treatment Plan: The patient has greatly improved on olanzapine 7.5mg PO BID and is agreeable to continue taking this. His suicidal gesture, leading to this hospitalization, was transient and done out of frustration. His attitude is far more positive and pro-social at this time and he is sustaining this as we move forward. He is psychiatrically cleared for discharge and is awaiting placement. Psychiatry will continue to follow. Continued Medication Management: Start Medication Medications: Current Medications Acetaminophen (Tylenol Tab*) 650 mg PO Q4H PRN PRN Reason: PAIN/FEVER Last Admin: 04/26/18 02:53 Dose: 650 mg Al Hydrox/Mg Hydrox/Simethicone (Maalox Plus*) 30 ml PO Q6H PRN PRN Reason: INDIGESTION Albuterol (Ventolin 2.5 Mg/3 Ml Neb.Dayami*) 2.5 mg INH [id number] AWAKE PRN PRN Reason: SOB/WHEEZING Ascorbic Acid (Vitamin C Tab*) 1,000 mg PO DAILY [facility] Last Admin: 04/26/18 09:17 Dose: 1,000 mg Atorvastatin Calcium (Lipitor*) 10 mg PO 2100 [facility] Last Admin: 04/25/18 23:02 Dose: 10 mg Capsaicin (Zostrix 0.025% Cream*) 1 applic TOPICAL BID PRN PRN Reason: PAIN Collagenase (Santyl 250 Mg/Gm Oint*) 1 applic TOPICAL DAILY [facility] Last Admin: 04/26/18 09:18 Dose: 1 applic Dantrolene Sodium (Dantrium Cap*) 25 mg PO TID [facility] Last Admin: 04/26/18 09:18 Dose: Not Given Diphenhydramine HCl (Benadryl Po*) 25 mg PO Q6H PRN PRN Reason: ITCHING Last Admin: 04/20/18 07:17 Dose: 25 mg Docusate Sodium (Colace Cap*) 100 mg PO BID PRN PRN Reason: CONSTIPATION Doxycycline Hyclate (Vibramycin Cap(*)) 100 mg PO BID [facility] Last Admin: 04/26/18 09:17 Dose: 100 mg Heparin Sodium (Porcine) (Heparin Vial(*)) 5,000 units SUBCUT Q8H [facility] Last Admin: 04/26/18 06:18 Dose: 5,000 units Magnesium Hydroxide (Milk Of Magnesia Liq*) 30 ml PO Q4H PRN PRN Reason: CONSTIPATION Magnesium Oxide (Magox 400 Tab*) 400 mg PO BID [facility] Last Admin: 04/26/18 09:17 Dose: 400 mg Melatonin (Melatonin) 3 mg PO BEDTIME PRN PRN Reason: SLEEP Metoprolol Succinate (Toprol Xl Tab*) 50 mg PO DAILY [facility] Last Admin: 04/26/18 09:17 Dose: 50 mg Nystatin (Nystatin Top Powder*) 1 applic TOPICAL BID [facility] Last Admin: 04/26/18 09:18 Dose: 1 applic Olanzapine (Zyprexa * Tab Odt) 7.5 mg PO BID [facility] Last Admin: 04/26/18 09:18 Dose: Not Given Omeprazole (Prilosec Cap*) 20 mg PO DAILY@0600 [facility] Last Admin: 04/26/18 06:18 Dose: 20 mg Polyethylene Glycol/Electrolytes (Miralax*) 17 gm PO DAILY PRN PRN Reason: CONSTIPATION Pregabalin (Lyrica Cap(*)) 25 mg PO TID [facility] Last Admin: 04/26/18 09:17 Dose: 25 mg Tizanidine HCl (Zanaflex Tab*) 4 mg PO QID PRN PRN Reason: SPASMS Last Admin: 04/26/18 09:17 Dose: 4 mg Tramadol HCl (Ultram*) 50 mg PO Q8H PRN PRN Reason: PAIN Last Admin: 04/25/18 05:21 Dose: 50 mg - Discharge Plan Discharge Plan: Outpatient Follow Up
[2018-04-26] MEDS: Atorvastatin* 10 MG TAB PO SCH (21:46)
[2018-04-26] MEDS: traMADol TAB* 50 MG PO PRN (21:55)
[2018-04-27] MEDS: Omeprazole CAP* 20 MG PO SCH (05:11)
[2018-04-27] MEDS: Ascorbic Acid TAB* 500 MG PO SCH (09:18)
[2018-04-27] MEDS: Metoprolol Succinate XL TAB* 50 MG PO SCH (09:18)
[2018-04-27] MEDS: DOXYcycline CAP(*) 100 MG PO SCH ×2 (09:18→21:19)
[2018-04-27] MEDS: Pregabalin CAP(*) 25 MG PO SCH ×3 (09:18→21:23)
[2018-04-27] MEDS: Heparin VIAL(*) 5000 UNITS/ML VIAL (FIVE THOUSAND) SUBCUT SCH ×3 (09:18→21:42)
[2018-04-27] MEDS: DANTROLENE 25 MG PO SCH ×3 (09:19→21:19)
[2018-04-27] MEDS: Magnesium Oxide TAB* 400 MG PO SCH ×2 (09:19→21:20)
[2018-04-27] MEDS: tiZANidine TAB* 2 MG PO PRN (09:20)
[2018-04-27] MEDS: OLANzapine TAB*ODT* 5 MG PO SCH ×2 (09:20→21:20)
[2018-04-27] MEDS: Acetaminophen TAB* 325 MG PO PRN ×2 (09:25→21:41)
[2018-04-27] MEDS: Collagenase 250 MG/GM OINT* 30 GM TOPICAL SCH (10:03)
[2018-04-27] MEDS: Nystatin TOP POWDER* 15 GM BTL TOPICAL SCH ×2 (10:03→22:20)
[2018-04-27] MEDS: traMADol TAB* 50 MG PO PRN (14:47)
[2018-04-27] MEDS: Atorvastatin* 10 MG TAB PO SCH (21:18)
[2018-04-28] MEDS: Omeprazole CAP* 20 MG PO SCH (06:25)
[2018-04-28] MEDS: Heparin VIAL(*) 5000 UNITS/ML VIAL (FIVE THOUSAND) SUBCUT SCH ×3 (06:25→21:33)
[2018-04-28] MEDS: DANTROLENE 25 MG PO SCH ×3 (09:44→21:32)
[2018-04-28] MEDS: Collagenase 250 MG/GM OINT* 30 GM TOPICAL SCH (09:44)
[2018-04-28] MEDS: Ascorbic Acid TAB* 500 MG PO SCH (09:45)
[2018-04-28] MEDS: Metoprolol Succinate XL TAB* 50 MG PO SCH (09:46)
[2018-04-28] MEDS: Magnesium Oxide TAB* 400 MG PO SCH ×2 (09:46→21:32)
[2018-04-28] MEDS: Acetaminophen TAB* 325 MG PO PRN (09:48)
[2018-04-28] MEDS: DOXYcycline CAP(*) 100 MG PO SCH ×2 (09:48→21:31)
[2018-04-28] MEDS: Pregabalin CAP(*) 25 MG PO SCH ×3 (09:48→21:32)
[2018-04-28] MEDS: OLANzapine TAB*ODT* 5 MG PO SCH ×2 (09:49→21:31)
[2018-04-28] MEDS: traMADol TAB* 50 MG PO PRN (12:33)
[2018-04-28] MEDS: Nystatin TOP POWDER* 15 GM BTL TOPICAL SCH ×2 (13:39→21:22)
--- NOTE | 2018-04-28 17:28 | PN ---
Subjective Date of Service: 04/28/18 Interval History: Pt feels well. He denies suicidal ideation.No c/o abd pain/CP or SOB. Objective Active Medications: Acetaminophen (Tylenol Tab*) 650 mg PO Q4H PRN PRN Reason: PAIN/FEVER Last Admin: 04/28/18 09:48 Dose: 650 mg Al Hydrox/Mg Hydrox/Simethicone (Maalox Plus*) 30 ml PO Q6H PRN PRN Reason: INDIGESTION Albuterol (Ventolin 2.5 Mg/3 Ml Neb.Dayami*) 2.5 mg INH [id number] AWAKE PRN PRN Reason: SOB/WHEEZING Ascorbic Acid (Vitamin C Tab*) 1,000 mg PO DAILY [facility] Last Admin: 04/28/18 09:45 Dose: 1,000 mg Atorvastatin Calcium (Lipitor*) 10 mg PO 2100 [facility] Last Admin: 04/27/18 21:18 Dose: 10 mg Capsaicin (Zostrix 0.025% Cream*) 1 applic TOPICAL BID PRN PRN Reason: PAIN Collagenase (Santyl 250 Mg/Gm Oint*) 1 applic TOPICAL DAILY [facility] Last Admin: 04/28/18 09:44 Dose: 1 applic Dantrolene Sodium (Dantrium Cap*) 25 mg PO TID [facility] Last Admin: 04/28/18 13:45 Dose: 25 mg Diphenhydramine HCl (Benadryl Po*) 25 mg PO Q6H PRN PRN Reason: ITCHING Last Admin: 04/20/18 07:17 Dose: 25 mg Docusate Sodium (Colace Cap*) 100 mg PO BID PRN PRN Reason: CONSTIPATION Doxycycline Hyclate (Vibramycin Cap(*)) 100 mg PO BID [facility] Last Admin: 04/28/18 09:48 Dose: 100 mg Heparin Sodium (Porcine) (Heparin Vial(*)) 5,000 units SUBCUT Q8H [facility] Last Admin: 04/28/18 15:31 Dose: 5,000 units Magnesium Hydroxide (Milk Of Magnesia Liq*) 30 ml PO Q4H PRN PRN Reason: CONSTIPATION Magnesium Oxide (Magox 400 Tab*) 400 mg PO BID [facility] Last Admin: 04/28/18 09:46 Dose: 400 mg Melatonin (Melatonin) 3 mg PO BEDTIME PRN PRN Reason: SLEEP Metoprolol Succinate (Toprol Xl Tab*) 50 mg PO DAILY [facility] Last Admin: 04/28/18 09:46 Dose: 50 mg Nystatin (Nystatin Top Powder*) 1 applic TOPICAL BID [facility] Last Admin: 04/28/18 13:39 Dose: Not Given Olanzapine (Zyprexa * Tab Odt) 7.5 mg PO BID [facility] Last Admin: 04/28/18 09:49 Dose: 7.5 mg Omeprazole (Prilosec Cap*) 20 mg PO DAILY@0600 [facility] Last Admin: 04/28/18 06:25 Dose: 20 mg Polyethylene Glycol/Electrolytes (Miralax*) 17 gm PO DAILY PRN PRN Reason: CONSTIPATION Pregabalin (Lyrica Cap(*)) 25 mg PO TID [facility] Last Admin: 04/28/18 13:44 Dose: 25 mg Tizanidine HCl (Zanaflex Tab*) 4 mg PO QID PRN PRN Reason: SPASMS Last Admin: 04/27/18 09:20 Dose: 4 mg Tramadol HCl (Ultram*) 50 mg PO Q8H PRN PRN Reason: PAIN Last Admin: 04/28/18 12:33 Dose: 50 mg Vital Signs - 8 hr 04/28/18 04/28/18 04/28/18 09:48 12:33 13:39 Respiratory 16 18 18 Rate 04/28/18 04/28/18 04/28/18 13:44 15:31 16:42 Respiratory 18 16 16 Rate Oxygen Devices in Use Now: None Appearance: 52 yo M in NAD, AAOx3 Eyes: No Scleral Icterus, - - left pupil fixed and dilated-chronic Ears/Nose/Mouth/Throat: NL Teeth, Lips, Gums, Mucous Membranes Moist Neck: NL Appearance and Movements; NL JVP, Trachea Midline Respiratory: Symmetrical Chest Expansion and Respiratory Effort, Clear to Auscultation Cardiovascular: NL Sounds; No Murmurs; No JVD, RRR Abdominal: NL Sounds; No Tenderness; No Distention, No Hepatosplenomegaly Lymphatic: No Cervical Adenopathy Extremities: No Clubbing, Cyanosis Skin: No Nodules or Sclerosis, - - r buttock and hip ulcers stage 2-3 at approx 2 cm in diam covered with slough, no evidence of erythema Neurological: Alert and Oriented x 3, - - paraplegia, able to move b/l UE's - Nutrition: Malnutrition Diagnosis/Plan Malnutrition Assessment by Registered Dietitian: Malnutrition Assessment Clinical Characteristics Acute,Severe Malnutrition Assessment: Moderate temporal muscle wasting and muscle Criteria wasting of upper extremities Underweight - BMI 16.9 Pt report of severe acute weight loss - 20% Malnutrition Assessment: Large portions especially of protein items and Interventions reasonable accomodation of pt's food preferences Malnutrition Assessment: Goals Adequate intake to promote wound healing and weight gain, while preserving lean body mass. Adequate intake to maintain hydration status. K levels to improve to WNL and maintain WNL. Tolerates least restrictive texture w/o difficulty chewing. Result Diagrams: 04/22/18 06:24 04/28/18 06:21 Microbiology and Other Data: Microbiology 04/22/18 06:24 Aerobic Blood Culture - Final Blood Venous No Growth Day 5 Anaerobic Blood Culture - Final No Growth Day 5 04/22/18 06:24 Aerobic Blood Culture - Final Blood Venous No Growth Day 5 Anaerobic Blood Culture - Final No Growth Day 5 04/24/18 02:00 Urine Culture - Final Urine Klebsiella Pneumoniae 04/22/18 07:03 Urine Culture - Final Urine Klebsiella Pneumoniae EKG Data: EKG ordered 04/20/18 - Sinus tachycardia, rate 109; AK 119 ms; QRS 88 ms; QTc 441 ms Assess/Plan/Problems-Billing Assessment: 52 y/o male with complex medical history including but no limited to recent: 1. MRSA bacteremia and MRSA UTI diagnosed on 02/24/18 at [facility] in [place] placed on Vancomycin starting 02/27/18 2. Severe anemia and hypotension diagnosed on 02/24/18 at [facility] in [place] transfused total 4 units pRBC's 3. Left psoas muscle abscess s/p I&D by IR at [facility] in [place] on 02/26/18 starting Vancomycin 02/27/18 4. Left Hip osteomyelitis underwent left femur excision and wash out 03/14/[address] Russell Petros [phone]; 5. Transferred to [facility] on 03/22/18 with the goal to complete 3 more weeks of IV vanco (for total of 6 weeks) 6. On 03/22/18 he was send to our ED form [employer] for suicidal thought and disruptive behavior, cleared and send back to [facility]. (Picc line was not functioning and missed Vanco from 03/22/18 -03/29/18). but he was placed on Keflex PO in the mean time from 03/24/18 - 03/29/18 7. On 03/29/18 He was send again to our ER for suicidal attempt by wrapping the bed to his neck attempting suicide! Admitted to medicine with psych consulting. Vanco was resumed from 03/29/18 -04/08/18. Doxycycline was placed on board from 04/09/18 - Present 8. Bioplar and suicidal history 9. Hyperlipidemia 10. GERD 11. HTN 12. Paraplegia (idiopathic as per patient) 13. [employer] shunt 14. Neurogenic bladder (swenson catheter exchanged on 04/08/18 by urology at [facility] need monthly exchange) 15. Decubitus ulcer stage 2 (seen by wound care nurse) 16. 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 Romano, pt is stable regarding SI/HI that will not need BSU stay -Currently denies SI -Continue Olanzapine PO 7.5 mg BID (2) Osteomyelitis Comment: - Left Hip osteomyelitis underwent left femur excision and wash out 03/[address] Russell Petros [phone] at [facility] in [place]; - Was on Vanco IV while @ [facility] from 02/27-03/22/18. Missed vanco from 03/22/18 - . Resumed Vanco from 03/29/18 - 04/08/18 - Currently on PO doxycycline 100 mg bid from 04/09/18 - present. ID on board to follow up with ortho at [place] as he missed his 03/28/18 follow up appointment (3) Anemia Comment: - likely due to anemia of chronic disease - Reviewing his records from [facility] he presented on 02/24/18 with hypotension and anemia and H/H 20/6.6. he did recieve 4 units total. - I did not see GI work up - I will send for iron studies (WNL), folate, B12 (low normal), will start Vit B12 PO - cont PPI (4) Decubitus skin ulcer Comment: - Seen by wound care nurse. right ischium ulcer 2.6x2cm and R low back 1.2 x 1 cm - cont santyl cover with adhesive tape (5) Diabetes Comment: - listed on his discharge form [facility]. - BG fluctuating - Hb A1c 5.2- no dx of DM noted (6) GERD (gastroesophageal reflux disease) Comment: cont omeprazole 20 mg daily (7) Neurogenic bladder Comment: - with suprapubic catheter - As per patient the catheter was exchanged on 04/08/18 by urology here at [facility] - need to have it exchanged again by the end of this month and begnining of may and monthly thereafter - Vitamin C 1000 mg daily. - Known history of MRSA UTI and MRSA bactermia. (low treshold to reculture) - K. pneumoniae on urine cx likely colonization/asymptomatic bacteriuria-see ID notes (8) Back muscle spasm Comment: cont Tizanidine 4 mg tid prn (9) Tachycardia Comment: - Mailnly driven by his diet as he was taking at least 2 liter of diet soda every day - EKG confirms sinus tachycardia, present in [place] also - continue toprol 50 mg HS and it can be titrated upward if needed, but BP borderline - His lisinopril 5 mg remain on hold as his BP is stable and low normal on toprol 50 daily (10) Protein-calorie malnutrition, severe Comment: encouraged to complete his meals. (11) Hypomagnesemia Comment: cont MagOx (12) DVT prophylaxis Comment: - Heparin SQ Status and Disposition: pt is on swing bed status
[2018-04-28] MEDS: Atorvastatin* 10 MG TAB PO SCH (21:32)
[2018-04-29] MEDS: Omeprazole CAP* 20 MG PO SCH (06:12)
[2018-04-29] MEDS: Heparin VIAL(*) 5000 UNITS/ML VIAL (FIVE THOUSAND) SUBCUT SCH ×4 (06:12→21:27)
[2018-04-29] MEDS ORDERED: Magnesium Sulfate IV* 3 GM in NS 0.9% 100 ML* 100 ML IVPB ONE (07:40)
[2018-04-29] MEDS: Collagenase 250 MG/GM OINT* 30 GM TOPICAL SCH (09:00)
[2018-04-29] MEDS: Cyanocobalamin TAB* 500 MCG PO SCH (10:27)
[2018-04-29] MEDS: DOXYcycline CAP(*) 100 MG PO SCH ×2 (10:27→21:24)
[2018-04-29] MEDS: Metoprolol Succinate XL TAB* 50 MG PO SCH (10:27)
[2018-04-29] MEDS: Acetaminophen TAB* 325 MG PO PRN ×2 (10:27→21:22)
[2018-04-29] MEDS: Pregabalin CAP(*) 25 MG PO SCH ×3 (10:27→21:25)
[2018-04-29] MEDS: Ascorbic Acid TAB* 500 MG PO SCH (10:27)
[2018-04-29] MEDS: Magnesium Oxide TAB* 400 MG PO SCH ×2 (10:27→21:24)
[2018-04-29] MEDS: OLANzapine TAB*ODT* 5 MG PO SCH ×2 (10:28→21:24)
[2018-04-29] MEDS: Nystatin TOP POWDER* 15 GM BTL TOPICAL SCH ×2 (10:29→21:04)
[2018-04-29] MEDS: DANTROLENE 25 MG PO SCH ×3 (10:29→21:26)
[2018-04-29] MEDS: tiZANidine TAB* 2 MG PO PRN ×2 (14:47→21:23)
--- NOTE | 2018-04-29 14:55 | CONSULT ---
Identification - Patient Identification Reason for Psychiatric Consultation: Incapacitating Symptoms -: Patient is a 52 year old, M admitted on 04/17/18. - MHU Identification Employment Status: Disabled Hx Psychiatric Hospitalization: Yes History - Objective HPI: I had another excellent interaction with Gabriel today. He is lucid, calm, thoughtful and cooperative with care. He continues to deny SI and his mood is much more euthymic since initiating olanzapine therapy. Gabriel's mood and appetite have rebounded and I note that he is starting to gain back some of the weight he's lost over the summer, both here and at [facility]. He expresses understanding of his medical condition and the need [place] [facility] meet his needs for ADLs. He is cognitively intact throughout our interaction. Exam Appearance: Thin Framed Hygiene: Normal Grooming: Fairly Well Kept Psychomotor Activities: Normal Exhibits Abnormal Movement: No Attitude and Relatedness: Cooperative Eye Contact: Good - Speech Quality: Unpressured Latencies: Normal Quantity: Appropriate Patient's Decription of Mood: "Good" Observed Affect: Good Affect Consistent with: Euthymia Patient's Thought Process: Coherent Thought Content: No Passive Wish, No Suicidal Planning, No Homicidal Ideation, No Paranoid Ideation Experiencing Hallucinations: No, Sensorium is Clear Type of Hallucinations: Visual: No, Auditory: No, Command: No Level of Consciousness: Alert Orientation: Yes Intact, Yes Orientated to Time, Yes Orientated to Place, Yes Orientated to Person Impulse Control: Intact Insight and Judgement: Good Impression - Impression Clinical Impression: 52 y.o. , white male with paraplegia, arrives on 9.41 from [facility] following a suicidal gesture in which he tied a sheet around his neck and gestured to hang himself. Inpatient DSM-V Dx: F31.74 Merits Inpatient Hospitalization: No Problem List - MHU Problems Type of Problem: Mood Status of Problem: Resolved Plan - Treatment Plan Treatment Plan: The patient has greatly improved on olanzapine 7.5mg PO BID and is agreeable to continue taking this. His suicidal gesture, leading to this hospitalization, was transient and done out of frustration. His attitude is far more positive and pro-social at this time and he is sustaining this as we move forward. He is psychiatrically cleared for discharge and is awaiting placement. Gabriel is cognitively intact and has capacity to make informed decisions regarding placement. Psychiatry will continue to follow. Continued Medication Management: Start Medication Medications: Current Medications Acetaminophen (Tylenol Tab*) 650 mg PO Q4H PRN PRN Reason: PAIN/FEVER Last Admin: 04/29/18 10:27 Dose: 650 mg Al Hydrox/Mg Hydrox/Simethicone (Maalox Plus*) 30 ml PO Q6H PRN PRN Reason: INDIGESTION Albuterol (Ventolin 2.5 Mg/3 Ml Neb.Dayami*) 2.5 mg INH [id number] AWAKE PRN PRN Reason: SOB/WHEEZING Ascorbic Acid (Vitamin C Tab*) 1,000 mg PO DAILY [facility] Last Admin: 04/29/18 10:27 Dose: 1,000 mg Atorvastatin Calcium (Lipitor*) 10 mg PO 2100 [facility] Last Admin: 04/28/18 21:32 Dose: 10 mg Capsaicin (Zostrix 0.025% Cream*) 1 applic TOPICAL BID PRN PRN Reason: PAIN Collagenase (Santyl 250 Mg/Gm Oint*) 1 applic TOPICAL DAILY [facility] Last Admin: 04/29/18 09:00 Dose: 1 applic Cyanocobalamin (Vitamin B12 Tab*) 1,000 mcg PO DAILY [facility] Last Admin: 04/29/18 10:27 Dose: 1,000 mcg Dantrolene Sodium (Dantrium Cap*) 25 mg PO TID [facility] Last Admin: 04/29/18 14:46 Dose: 25 mg Diphenhydramine HCl (Benadryl Po*) 25 mg PO Q6H PRN PRN Reason: ITCHING Last Admin: 04/20/18 07:17 Dose: 25 mg Docusate Sodium (Colace Cap*) 100 mg PO BID PRN PRN Reason: CONSTIPATION Doxycycline Hyclate (Vibramycin Cap(*)) 100 mg PO BID [facility] Last Admin: 04/29/18 10:27 Dose: 100 mg Heparin Sodium (Porcine) (Heparin Vial(*)) 5,000 units SUBCUT Q8H [facility] Last Admin: 04/29/18 14:48 Dose: 5,000 units Magnesium Hydroxide (Milk Of Magnesia Liq*) 30 ml PO Q4H PRN PRN Reason: CONSTIPATION Magnesium Oxide (Magox 400 Tab*) 400 mg PO BID [facility] Last Admin: 04/29/18 10:27 Dose: 400 mg Melatonin (Melatonin) 3 mg PO BEDTIME PRN PRN Reason: SLEEP Metoprolol Succinate (Toprol Xl Tab*) 50 mg PO DAILY [facility] Last Admin: 04/29/18 10:27 Dose: 50 mg Nystatin (Nystatin Top Powder*) 1 applic TOPICAL BID [facility] Last Admin: 04/29/18 10:29 Dose: Not Given Olanzapine (Zyprexa * Tab Odt) 7.5 mg PO BID [facility] Last Admin: 04/29/18 10:28 Dose: 7.5 mg Omeprazole (Prilosec Cap*) 20 mg PO DAILY@0600 [facility] Last Admin: 04/29/18 06:12 Dose: 20 mg Polyethylene Glycol/Electrolytes (Miralax*) 17 gm PO DAILY PRN PRN Reason: CONSTIPATION Pregabalin (Lyrica Cap(*)) 25 mg PO TID [facility] Last Admin: 04/29/18 14:46 Dose: 25 mg Tizanidine HCl (Zanaflex Tab*) 4 mg PO QID PRN PRN Reason: SPASMS Last Admin: 04/29/18 14:47 Dose: 4 mg Tramadol HCl (Ultram*) 50 mg PO Q8H PRN PRN Reason: PAIN Last Admin: 04/28/18 12:33 Dose: 50 mg - Discharge Plan Discharge Plan: Outpatient Follow Up
[2018-04-29] MEDS: traMADol TAB* 50 MG PO PRN (21:23)
[2018-04-29] MEDS: Atorvastatin* 10 MG TAB PO SCH (21:25)
[2018-04-30] MEDS: Omeprazole CAP* 20 MG PO SCH (06:11)
[2018-04-30] MEDS: Heparin VIAL(*) 5000 UNITS/ML VIAL (FIVE THOUSAND) SUBCUT SCH ×2 (06:11→13:55)
[2018-04-30] MEDS: Collagenase 250 MG/GM OINT* 30 GM TOPICAL SCH ×2 (06:13→11:33)
[2018-04-30] MEDS: DANTROLENE 25 MG PO SCH ×3 (11:02→20:10)
[2018-04-30] MEDS: Cyanocobalamin TAB* 500 MCG PO SCH (11:04)
[2018-04-30] MEDS: Ascorbic Acid TAB* 500 MG PO SCH (11:04)
[2018-04-30] MEDS: DOXYcycline CAP(*) 100 MG PO SCH ×2 (11:04→20:08)
[2018-04-30] MEDS: Metoprolol Succinate XL TAB* 50 MG PO SCH (11:04)
[2018-04-30] MEDS: Magnesium Oxide TAB* 400 MG PO SCH ×2 (11:04→20:07)
[2018-04-30] MEDS: Pregabalin CAP(*) 25 MG PO SCH ×3 (11:05→20:08)
[2018-04-30] MEDS: OLANzapine TAB*ODT* 5 MG PO SCH ×2 (11:05→20:51)
[2018-04-30] MEDS: Acetaminophen TAB* 325 MG PO PRN ×2 (11:05→18:54)
[2018-04-30] MEDS: Nystatin TOP POWDER* 15 GM BTL TOPICAL SCH (11:05)
[2018-04-30] MEDS: tiZANidine TAB* 2 MG PO PRN ×2 (13:56→20:09)
--- NOTE | 2018-04-30 17:37 | RAD ---
HISTORY: Lower extremity pain and swelling TECHNIQUE: Multiple transverse and longitudinal ultrasound images were obtained of the veins of the left lower extremity using grayscale, color Doppler, and spectral Doppler imaging with and without compression and with augmentation. FINDINGS: VEINS: The common femoral vein is adequately patent with normal color flow and respiratory phasicity. There is echogenic material extending from the mid level femoral vein to the upper popliteal vein but color flow is preserved. Normal respiratory phasicity is preserved. Augmentation is normal. There is low echogenic occlusive thrombus in the femoral profundus. The infrapopliteal veins where visualized appear to be adequately patent. SOFT TISSUES: Grossly normal. No large popliteal fossa cyst was identified. IMPRESSION: 1. There is acute appearing occlusive thrombus in the left femoral profundus. 2. There is chronic appearing nonocclusive material seen from the mid-level left femoral vein extending to the popliteal vein. The findings were discussed over the telephone with Dr. Rodriguez at 1730 hours on April 30, 2018.
--- NOTE | 2018-04-30 18:20 | PN ---
Hospitalist Progress Note Date of Service: 04/30/18 HOSPITALIST ADDENDUM Called by RN earlier today because patient was c/o LLE pain and edema. LLE doppler showed acute occlusive DVT of femoral profunda and chronic non occlusive DVT extending from mid level left femoral extending to popliteal. Patient was made aware of diagnosis and we discussed R/B/A of treatments, including Lovenox/Warfarin and NOAC (Xarelto and Eliquis). In the end, decision was made to treat with Eliquis.
[2018-04-30] MEDS: traMADol TAB* 50 MG PO PRN (18:54)
[2018-04-30] MEDS: Atorvastatin* 10 MG TAB PO SCH (20:09)
[2018-04-30] MEDS: Apixaban* 5 MG TAB PO SCH (20:10)
[2018-04-30] MEDS ORDERED: Morphine VIAL* 4 MG/ML VIAL (1 ml vial) IV ONE (20:21)
[2018-04-30] MEDS: Morphine INJ* 4 MG/ML 1 ML SYRINGE (NEW SYRINGE VERSION) IV PRN (20:26)
[2018-05-01] MEDS: traMADol TAB* 50 MG PO PRN (02:30)
[2018-05-01] MEDS: Acetaminophen TAB* 325 MG PO PRN ×2 (02:31→09:47)
[2018-05-01] MEDS: Omeprazole CAP* 20 MG PO SCH (05:35)
[2018-05-01 07:27] LABS: ABS Basophils 0.1 10^3/ul (0-0.2); ABS Eosinophils 0.2 10^3/ul (0-0.6); ABS Lymphocytes 1.2 10^3/ul (1.0-4.8); ABS Neutrophils 10.3 10^3/ul (1.5-7.7); ABS Nucleated RBC 0 10^3/ul; Eosinophil % 1.8 % (0-6); Hematocrit 27 % (42-52); Lymphocyte % 9.7 % (25-47); Mean Corpuscular HGB Conc 33 g/dl (31-36); Mean Corpuscular Hemoglobin 30 pg (27-31); Mean Corpuscular Volume 91 fL (80-94); Nucleated Red Blood Cells % 0; Platelet Count 283 10^3/ul (150-450); Red Cell Distribution Width 18 % (10.5-15); White Blood Count 12.8 10^3/ul (3.5-10.8)
[2018-05-01 07:49] LABS: EGFR Non-African American 87.5 (>60)
[2018-05-01] MEDS: Apixaban* 5 MG TAB PO SCH ×2 (09:48→19:30)
[2018-05-01] MEDS: DOXYcycline CAP(*) 100 MG PO SCH ×2 (09:48→19:30)
[2018-05-01] MEDS: Pregabalin CAP(*) 25 MG PO SCH ×3 (09:48→19:30)
[2018-05-01] MEDS: Ascorbic Acid TAB* 500 MG PO SCH (09:48)
[2018-05-01] MEDS: Metoprolol Succinate XL TAB* 50 MG PO SCH (09:48)
[2018-05-01] MEDS: Magnesium Oxide TAB* 400 MG PO SCH ×2 (09:49→19:30)
[2018-05-01] MEDS: Cyanocobalamin TAB* 500 MCG PO SCH (09:49)
[2018-05-01] MEDS: DANTROLENE 25 MG PO SCH ×3 (09:50→23:38)
[2018-05-01] MEDS: Morphine INJ* 4 MG/ML 1 ML SYRINGE (NEW SYRINGE VERSION) IV PRN (10:26)
[2018-05-01] MEDS: OLANzapine TAB*ODT* 5 MG PO SCH ×2 (10:26→23:38)
[2018-05-01] MEDS: Collagenase 250 MG/GM OINT* 30 GM TOPICAL SCH (10:30)
[2018-05-01] MEDS: tiZANidine TAB* 2 MG PO PRN (15:55)
[2018-05-01] MEDS ORDERED: Morphine VIAL* 4 MG/ML VIAL (1 ml vial) IV ONE (19:23)
[2018-05-01] MEDS: Atorvastatin* 10 MG TAB PO SCH (19:30)
[2018-05-02] MEDS: traMADol TAB* 50 MG PO PRN (00:49)
[2018-05-02] MEDS: diPHENhydraMINE PO* 25 MG PO PRN (00:49)
[2018-05-02] MEDS: Omeprazole CAP* 20 MG PO SCH (06:19)
[2018-05-02] MEDS: Pregabalin CAP(*) 25 MG PO SCH ×3 (09:11→21:05)
[2018-05-02] MEDS: DOXYcycline CAP(*) 100 MG PO SCH ×2 (09:12→21:06)
[2018-05-02] MEDS: Apixaban* 5 MG TAB PO SCH ×2 (09:12→21:06)
[2018-05-02] MEDS: Ascorbic Acid TAB* 500 MG PO SCH (09:13)
[2018-05-02] MEDS: Cyanocobalamin TAB* 500 MCG PO SCH (09:15)
[2018-05-02] MEDS: Metoprolol Succinate XL TAB* 50 MG PO SCH (09:15)
[2018-05-02] MEDS: Magnesium Oxide TAB* 400 MG PO SCH ×2 (09:15→21:06)
[2018-05-02] MEDS: DANTROLENE 25 MG PO SCH ×3 (09:26→21:05)
[2018-05-02] MEDS: OLANzapine TAB*ODT* 5 MG PO SCH ×2 (09:27→21:06)
[2018-05-02] MEDS: Collagenase 250 MG/GM OINT* 30 GM TOPICAL SCH ×2 (11:41→12:14)
[2018-05-02] MEDS: tiZANidine TAB* 2 MG PO PRN (14:08)
--- NOTE | 2018-05-02 15:02 | CONSULT ---
Identification - Patient Identification Reason for Psychiatric Consultation: Incapacitating Symptoms -: Patient is a 52 year old, M admitted on 04/17/18. - MHU Identification Employment Status: Disabled Hx Psychiatric Hospitalization: Yes History - Objective HPI: Gabriel had a difficult day yesterday and made statements that were received as passive SI, resulting in him being placed back on a 1:1. "They came in and told me that I basically have nowhere to go and that I have to pay the entire bill for this place. I said 'You might as well put me in a wheelchair and roll me down to the canal.' No they got me back on a 1:1. It's just a figure of speech...it's not like I'm gonna do anything to hurt myself." Gabriel had other stressors yesterday as well. He was diagnosed with a DVT and is now on anticoagulant medication. Additionally, he was taken to an outpatient ophthalmology appointment here in [facility] and received information and prognosis that differed from what he believes his retinal specialist in [place] told him. At this time, Gabriel is mostly preoccupied with seeing his dentist and orthopedist tomorrow in [place]. I spoke with office, who are trying to accommodate this, however, they need him to be off 1:1 observations. There remains no takers in terms of an SNF that will offer him residential services. Exam Appearance: Thin Framed Hygiene: Normal Grooming: Fairly Well Kept Psychomotor Activities: Normal Exhibits Abnormal Movement: No Attitude and Relatedness: Cooperative Eye Contact: Good - Speech Quality: Unpressured Latencies: Normal Quantity: Appropriate Patient's Decription of Mood: "Good" Observed Affect: Good Affect Consistent with: Euthymia Patient's Thought Process: Coherent Thought Content: No Passive Wish, No Suicidal Planning, No Homicidal Ideation, No Paranoid Ideation Experiencing Hallucinations: No, Sensorium is Clear Type of Hallucinations: Visual: No, Auditory: No, Command: No Level of Consciousness: Alert Orientation: Yes Intact, Yes Orientated to Time, Yes Orientated to Place, Yes Orientated to Person Impulse Control: Intact Insight and Judgement: Good Impression - Impression Clinical Impression: 52 y.o. , white male with paraplegia, arrives on 9.41 from [facility] following a suicidal gesture in which he tied a sheet around his neck and gestured to hang himself. Inpatient DSM-V Dx: F31.74 Merits Inpatient Hospitalization: No Problem List - MHU Problems Type of Problem: Impulse Control Status of Problem: Active Plan - Treatment Plan Treatment Plan: The patient is not suicidal, nor a risk to himself or others and will be taken off 1:1 observations. Notwithstanding this episode yesterday, he has greatly improved on olanzapine 7.5mg PO BID and is agreeable to continue taking this. The suicidal gesture which led to this hospitalization was transient and done out of frustration. He is psychiatrically cleared for discharge and is awaiting placement. Gabriel is cognitively intact and has capacity to make informed decisions regarding placement. Psychiatry will continue to follow. Continued Medication Management: Start Medication Medications: Current Medications Acetaminophen (Tylenol Tab*) 650 mg PO Q4H PRN PRN Reason: PAIN/FEVER Last Admin: 05/01/18 09:47 Dose: 650 mg Al Hydrox/Mg Hydrox/Simethicone (Maalox Plus*) 30 ml PO Q6H PRN PRN Reason: INDIGESTION Albuterol (Ventolin 2.5 Mg/3 Ml Neb.Dayami*) 2.5 mg INH [id number] AWAKE PRN PRN Reason: SOB/WHEEZING Apixaban (Eliquis*) 5 mg PO BID [facility] Last Admin: 05/02/18 09:12 Dose: 5 mg Ascorbic Acid (Vitamin C Tab*) 1,000 mg PO DAILY [facility] Last Admin: 05/02/18 09:13 Dose: 1,000 mg Atorvastatin Calcium (Lipitor*) 10 mg PO 2100 [facility] Last Admin: 05/01/18 19:30 Dose: 10 mg Capsaicin (Zostrix 0.025% Cream*) 1 applic TOPICAL BID PRN PRN Reason: PAIN Collagenase (Santyl 250 Mg/Gm Oint*) 1 applic TOPICAL DAILY [facility] Last Admin: 05/02/18 12:14 Dose: 1 applic Cyanocobalamin (Vitamin B12 Tab*) 1,000 mcg PO DAILY [facility] Last Admin: 05/02/18 09:15 Dose: 1,000 mcg Dantrolene Sodium (Dantrium Cap*) 25 mg PO TID [facility] Last Admin: 05/02/18 14:08 Dose: 25 mg Diphenhydramine HCl (Benadryl Po*) 25 mg PO Q6H PRN PRN Reason: ITCHING Last Admin: 05/02/18 00:49 Dose: 25 mg Docusate Sodium (Colace Cap*) 100 mg PO BID PRN PRN Reason: CONSTIPATION Doxycycline Hyclate (Vibramycin Cap(*)) 100 mg PO BID [facility] Last Admin: 05/02/18 09:12 Dose: 100 mg Magnesium Hydroxide (Milk Of Magnesia Liq*) 30 ml PO Q4H PRN PRN Reason: CONSTIPATION Magnesium Oxide (Magox 400 Tab*) 400 mg PO BID [facility] Last Admin: 05/02/18 09:15 Dose: 400 mg Melatonin (Melatonin) 3 mg PO BEDTIME PRN PRN Reason: SLEEP Last Admin: 05/02/18 00:49 Dose: 3 mg Metoprolol Succinate (Toprol Xl Tab*) 50 mg PO DAILY [facility] Last Admin: 05/02/18 09:15 Dose: 50 mg Olanzapine (Zyprexa * Tab Odt) 7.5 mg PO BID [facility] Last Admin: 05/02/18 09:27 Dose: 7.5 mg Omeprazole (Prilosec Cap*) 20 mg PO DAILY@0600 [facility] Last Admin: 05/02/18 06:19 Dose: 20 mg Polyethylene Glycol/Electrolytes (Miralax*) 17 gm PO DAILY PRN PRN Reason: CONSTIPATION Pregabalin (Lyrica Cap(*)) 25 mg PO TID [facility] Last Admin: 05/02/18 14:08 Dose: 25 mg Tizanidine HCl (Zanaflex Tab*) 4 mg PO QID PRN PRN Reason: SPASMS Last Admin: 05/02/18 14:08 Dose: 4 mg Tramadol HCl (Ultram*) 50 mg PO Q8H PRN PRN Reason: PAIN Last Admin: 05/02/18 00:49 Dose: 50 mg - Discharge Plan Discharge Plan: Outpatient Follow Up
[2018-05-02] MEDS ORDERED: Temazepam CAP* 15 MG PO PRN (18:50)
[2018-05-02] MEDS: Atorvastatin* 10 MG TAB PO SCH (21:06)
[2018-05-03] MEDS: Omeprazole CAP* 20 MG PO SCH (05:23)
[2018-05-03] MEDS: DANTROLENE 25 MG PO SCH ×3 (09:19→20:55)
[2018-05-03] MEDS: OLANzapine TAB*ODT* 5 MG PO SCH ×2 (09:19→20:53)
[2018-05-03] MEDS: Pregabalin CAP(*) 25 MG PO SCH ×3 (09:22→20:56)
[2018-05-03] MEDS: Metoprolol Succinate XL TAB* 50 MG PO SCH (09:22)
[2018-05-03] MEDS: Apixaban* 5 MG TAB PO SCH ×2 (09:22→20:55)
[2018-05-03] MEDS: Cyanocobalamin TAB* 500 MCG PO SCH (09:23)
[2018-05-03] MEDS: DOXYcycline CAP(*) 100 MG PO SCH ×2 (09:23→20:55)
[2018-05-03] MEDS: Collagenase 250 MG/GM OINT* 30 GM TOPICAL SCH ×2 (09:23→19:30)
[2018-05-03] MEDS: Ascorbic Acid TAB* 500 MG PO SCH (09:23)
[2018-05-03] MEDS: Magnesium Oxide TAB* 400 MG PO SCH ×2 (09:23→20:56)
[2018-05-03] MEDS: Atorvastatin* 10 MG TAB PO SCH (20:55)
[2018-05-03] MEDS: traMADol TAB* 50 MG PO PRN (20:55)
[2018-05-04] MEDS: Omeprazole CAP* 20 MG PO SCH (05:47)
[2018-05-04] MEDS: tiZANidine TAB* 2 MG PO PRN ×2 (09:33→13:16)
[2018-05-04] MEDS: DANTROLENE 25 MG PO SCH ×3 (09:33→23:59)
[2018-05-04] MEDS: DOXYcycline CAP(*) 100 MG PO SCH ×2 (09:34→23:59)
[2018-05-04] MEDS: Metoprolol Succinate XL TAB* 50 MG PO SCH (09:35)
[2018-05-04] MEDS: OLANzapine TAB*ODT* 5 MG PO SCH ×2 (09:35→23:59)
[2018-05-04] MEDS: Apixaban* 5 MG TAB PO SCH ×2 (09:37→23:59)
[2018-05-04] MEDS: Magnesium Oxide TAB* 400 MG PO SCH ×2 (09:37→23:59)
[2018-05-04] MEDS: Collagenase 250 MG/GM OINT* 30 GM TOPICAL SCH (09:38)
[2018-05-04] MEDS: Ascorbic Acid TAB* 500 MG PO SCH (09:38)
[2018-05-04] MEDS: Pregabalin CAP(*) 25 MG PO SCH ×2 (09:38→13:16)
[2018-05-04] MEDS: Cyanocobalamin TAB* 500 MCG PO SCH (09:38)
[2018-05-04] MEDS: traMADol TAB* 50 MG PO PRN (17:27)
[2018-05-04] MEDS: Atorvastatin* 10 MG TAB PO SCH (23:59)
[2018-05-05] MEDS: Omeprazole CAP* 20 MG PO SCH (06:11)
[2018-05-05] MEDS: Cyanocobalamin TAB* 500 MCG PO SCH (07:48)
[2018-05-05] MEDS: Magnesium Oxide TAB* 400 MG PO SCH ×3 (07:48→20:26)
[2018-05-05] MEDS: Ascorbic Acid TAB* 500 MG PO SCH ×2 (07:48→14:40)
[2018-05-05] MEDS: OLANzapine TAB*ODT* 5 MG PO SCH ×3 (07:48→20:27)
[2018-05-05] MEDS: Pregabalin CAP(*) 25 MG PO SCH ×5 (07:48→20:27)
[2018-05-05] MEDS: Metoprolol Succinate XL TAB* 50 MG PO SCH ×2 (07:48→14:47)
[2018-05-05] MEDS: DOXYcycline CAP(*) 100 MG PO SCH ×3 (07:48→20:26)
[2018-05-05] MEDS: DANTROLENE 25 MG PO SCH ×4 (07:48→20:31)
[2018-05-05] MEDS: Apixaban* 5 MG TAB PO SCH ×3 (07:48→20:25)
[2018-05-05] MEDS: Collagenase 250 MG/GM OINT* 30 GM TOPICAL SCH (07:48)
--- NOTE | 2018-05-05 14:41 | PN ---
Subjective Date of Service: 05/05/18 Interval History: HOSPITALIST PROGRESS NOTE Patient has multiple complaints. Major one is pain, especially on his legs due to his blood clot. Asking for IV Morphine and became upset when I explained he could have oral Morphine and did not need an IV anymore. He thinks is absurd he' s going to be discharged with a blood clot. "I should stay here until it's gone! " I tried to explain is going to take months for the clot to dissolve and he can continue his treatment (PO Apixaban) as outpatient with PCP follow up. He's also upset he's only being seen once a week. I tried to explain the rationale behind the once a week visit schedule and he would not hear it. "The Psychiatrist sees me every day". Refusing multiple medications because he "doesn't want to pay for it", even though it was explained this is not how it works. Did not make suicidal statements, wants to "get out of here as soon as possible ", but doesn't have any concrete plans. Family History: Unchanged from Admission Social History: Unchanged from Admission Past Medical History: Unchanged from Admission Objective Active Medications: Acetaminophen (Tylenol Tab*) 650 mg PO Q4H PRN PRN Reason: PAIN/FEVER Last Admin: 05/01/18 09:47 Dose: 650 mg Al Hydrox/Mg Hydrox/Simethicone (Maalox Plus*) 30 ml PO Q6H PRN PRN Reason: INDIGESTION Albuterol (Ventolin 2.5 Mg/3 Ml Neb.Dayami*) 2.5 mg INH [id number] AWAKE PRN PRN Reason: SOB/WHEEZING Apixaban (Eliquis*) 5 mg PO BID [facility] Last Admin: 05/05/18 07:48 Dose: Not Given Ascorbic Acid (Vitamin C Tab*) 1,000 mg PO DAILY [facility] Last Admin: 05/05/18 07:48 Dose: Not Given Atorvastatin Calcium (Lipitor*) 10 mg PO 2100 [facility] Last Admin: 05/04/18 23:59 Dose: Not Given Capsaicin (Zostrix 0.025% Cream*) 1 applic TOPICAL BID PRN PRN Reason: PAIN Collagenase (Santyl 250 Mg/Gm Oint*) 1 applic TOPICAL DAILY [facility] Last Admin: 05/05/18 07:48 Dose: Not Given Cyanocobalamin (Vitamin B12 Tab*) 1,000 mcg PO DAILY [facility] Last Admin: 05/05/18 07:48 Dose: Not Given Dantrolene Sodium (Dantrium Cap*) 25 mg PO TID [facility] Last Admin: 05/05/18 13:03 Dose: Not Given Diphenhydramine HCl (Benadryl Po*) 25 mg PO Q6H PRN PRN Reason: ITCHING Last Admin: 05/02/18 00:49 Dose: 25 mg Docusate Sodium (Colace Cap*) 100 mg PO BID PRN PRN Reason: CONSTIPATION Doxycycline Hyclate (Vibramycin Cap(*)) 100 mg PO BID [facility] Last Admin: 05/05/18 07:48 Dose: Not Given Magnesium Hydroxide (Milk Of Magnesia Liq*) 30 ml PO Q4H PRN PRN Reason: CONSTIPATION Magnesium Oxide (Magox 400 Tab*) 400 mg PO BID [facility] Last Admin: 05/05/18 07:48 Dose: Not Given Melatonin (Melatonin) 3 mg PO BEDTIME PRN PRN Reason: SLEEP Last Admin: 05/02/18 00:49 Dose: 3 mg Metoprolol Succinate (Toprol Xl Tab*) 50 mg PO DAILY [facility] Last Admin: 05/05/18 07:48 Dose: Not Given Morphine Sulfate (Morphine Oral Concentrate*) 5 mg PO Q8H PRN PRN Reason: PAIN Olanzapine (Zyprexa * Tab Odt) 7.5 mg PO BID [facility] Last Admin: 05/05/18 07:48 Dose: Not Given Omeprazole (Prilosec Cap*) 20 mg PO DAILY@0600 [facility] Last Admin: 05/05/18 06:11 Dose: Not Given Polyethylene Glycol/Electrolytes (Miralax*) 17 gm PO DAILY PRN PRN Reason: CONSTIPATION Pregabalin (Lyrica Cap(*)) 25 mg PO TID [facility] Last Admin: 05/05/18 13:03 Dose: Not Given Temazepam (Restoril Cap*) 15 mg PO BEDTIME PRN PRN Reason: INSOMNIA Last Admin: 05/03/18 20:55 Dose: 15 mg Tizanidine HCl (Zanaflex Tab*) 4 mg PO QID PRN PRN Reason: SPASMS Last Admin: 05/04/18 13:16 Dose: 4 mg Tramadol HCl (Ultram*) 50 mg PO Q8H PRN PRN Reason: PAIN Last Admin: 05/04/18 17:27 Dose: 50 mg Vital Signs - 8 hr 05/05/18 07:49 Respiratory 22 Rate Oxygen Devices in Use Now: None Appearance: Middle aged gentleman lying in bed being cleaned up, in NAD. Ears/Nose/Mouth/Throat: Mucous Membranes Moist Neck: Trachea Midline Abdominal: - - Suprapubic catheter in place Extremities: - - Left thigh edema Neurological: Alert and Oriented x 3 - Nutrition: Malnutrition Diagnosis/Plan Malnutrition Assessment by Registered Dietitian: Malnutrition Assessment Clinical Characteristics Acute,Severe Malnutrition Assessment: Moderate temporal muscle wasting and muscle Criteria wasting of upper extremities Underweight - BMI 16.9 Pt report of severe acute weight loss - 20% Malnutrition Assessment: Large portions especially of protein items and Interventions reasonable accomodation of pt's food preferences Malnutrition Assessment: Goals Adequate intake to promote wound healing and weight gain, while preserving lean body mass. Adequate intake to maintain hydration status. K levels to improve to WNL and maintain WNL. Tolerates least restrictive texture w/o difficulty chewing. Result Diagrams: 05/01/18 06:48 05/01/18 06:48 Assess/Plan/Problems-Billing Assessment: 52 y/o male with complex medical history including but no limited to recent: 1. MRSA bacteremia and MRSA UTI diagnosed on 02/24/18 at [facility] in [place] placed on Vancomycin starting 02/27/18 2. Severe anemia and hypotension diagnosed on 02/24/18 at [facility] in [place] transfused total 4 units pRBC's 3. Left psoas muscle abscess s/p I&D by IR at [facility] in [place] on 02/26/18 starting Vancomycin 02/27/18 4. Left Hip osteomyelitis underwent left femur excision and wash out 03/14/[address] Russell Petros [phone]; 5. Transferred to [facility] on 03/22/18 with the goal to complete 3 more weeks of IV vanco (for total of 6 weeks) 6. On 03/22/18 he was send to our ED form [email or web address] for suicidal thought and disruptive behavior, cleared and send back to [facility]. (Picc line was not functioning and missed Vanco from 03/22/18 -03/29/18). but he was placed on Keflex PO in the mean time from 03/24/18 - 03/29/18 7. On 03/29/18 He was send again to our ER for suicidal attempt by wrapping the bed to his neck attempting suicide. Admitted to medicine with psych consulting. Vanco was resumed from 03/29/18 -04/08/18. Doxycycline was placed on board from 04/09/18 - Present 8. Bioplar and suicidal history 9. Hyperlipidemia 10. GERD 11. HTN 12. Paraplegia (idiopathic as per patient) 13. [employer] shunt 14. Neurogenic bladder (swenson catheter exchanged on 04/08/18 by urology at [facility] need monthly exchange) 15. Decubitus ulcer stage 2 (seen by wound care nurse) 16. 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 - Currently denies SI - Continue Olanzapine PO 7.5 mg BID (2) DVT (deep venous thrombosis) Comment: - Left femoral profunda DVT diagnosed 04/30/18. - Continue Apixaban. - Will resume PO Morphine 5mg q8h PRN for pain. (3) Anemia Comment: - Reviewing his records from [facility] he presented on 02/24/18 with hypotension and anemia and H/H 20/6.6 - received 4 PRBCs. - Anemia w/u revealed Iron studies WNL, folate 9.8, and low normal B12 - continue B12 supplementation. (4) Decubitus skin ulcer Comment: - Stage II pressure ulcer - seen by wound care nurse - R ischeal crest (1.2 x 0.8 cm) and R gluteal area (1.8 x 1.4 cm). - Continue daily Santyl dressing. (5) GERD (gastroesophageal reflux disease) Comment: - Continue omeprazole 20 mg daily (6) Neurogenic bladder Comment: - with suprapubic catheter. - To be exchanged 05/09/18. - Vitamin C 1000 mg daily. - Known history of MRSA UTI and MRSA bactermia. - K. pneumoniae on urine cx likely colonization/asymptomatic bacteriuria-see ID notes (7) Back muscle spasm Comment: cont Tizanidine 4 mg tid prn (8) Osteomyelitis Comment: - Left Hip osteomyelitis underwent left femur excision and wash out 03/[address] Russell Petros [phone] at [facility] in [place]; - Was on Vanco IV while @ [facility] from 02/27-03/22/18. Missed vanco from 03/22/18 - . Resumed Vanco from 03/29/18 - 04/08/18 - Currently on PO doxycycline 100 mg bid from 04/09/18 - present. - Will ontain records from his Ortho f/u appointment. (9) Protein-calorie malnutrition, severe Comment: - Encouraged to have more nutritional meals. Upset I did not put an order stating he can have 2 liters of soda a day. (10) DVT prophylaxis Comment: - Apixaban. (11) Full code status Status and Disposition: Patient is jail care at this time, awaiting safe discharge plan.
[2018-05-05] MEDS: tiZANidine TAB* 2 MG PO PRN (14:46)
[2018-05-05] MEDS ORDERED: Bisacodyl SUPP* 10 MG SUPP PR PRN (15:01)
[2018-05-05] MEDS ORDERED: Sodium Phosphate ADULT ENEMA* 118 ml bottle PR PRN (15:01)
[2018-05-05] MEDS: Morphine ORAL CONCENTRATE* 5 MG/0.25 ML ORAL.SYRIN PO PRN (20:24)
[2018-05-05] MEDS: traMADol TAB* 50 MG PO PRN (20:26)
[2018-05-05] MEDS: Atorvastatin* 10 MG TAB PO SCH (20:26)
[2018-05-06] MEDS: tiZANidine TAB* 2 MG PO PRN ×2 (01:26→13:57)
[2018-05-06 07:06] LABS: ABS Basophils 0 10^3/ul (0-0.2); ABS Eosinophils 0.4 10^3/ul (0-0.6); ABS Lymphocytes 1.1 10^3/ul (1.0-4.8); ABS Monocytes 0.7 10^3/ul (0-0.8); ABS Neutrophils 5.9 10^3/ul (1.5-7.7); ABS Nucleated RBC 0 10^3/ul; Eosinophil % 4.4 % (0-6); Hematocrit 28 % (42-52); Hemoglobin 9.5 g/dl (14.0-18.0); Lymphocyte % 13.3 % (25-47); Mean Corpuscular HGB Conc 34 g/dl (31-36); Mean Corpuscular Hemoglobin 30 pg (27-31); Mean Corpuscular Volume 90 fL (80-94); Mean Platelet Volume 7.3 um3 (7.4-10.4); Nucleated Red Blood Cells % 0; Platelet Count 319 10^3/ul (150-450); Red Blood Count 3.15 10^6/ul (4.00-5.40); Red Cell Distribution Width 17 % (10.5-15); White Blood Count 8.1 10^3/ul (3.5-10.8)
[2018-05-06 07:21] LABS: EGFR Non-African American 89.8 (>60)
[2018-05-06] MEDS: Omeprazole CAP* 20 MG PO SCH (07:27)
[2018-05-06] MEDS: traMADol TAB* 50 MG PO PRN ×2 (07:27→20:48)
[2018-05-06] MEDS: Morphine ORAL CONCENTRATE* 5 MG/0.25 ML ORAL.SYRIN PO PRN ×2 (07:28→20:47)
[2018-05-06] MEDS: Pregabalin CAP(*) 25 MG PO SCH ×3 (10:24→21:15)
[2018-05-06] MEDS: Metoprolol Succinate XL TAB* 50 MG PO SCH (10:25)
[2018-05-06] MEDS: DANTROLENE 25 MG PO SCH ×3 (10:25→20:53)
[2018-05-06] MEDS: Apixaban* 5 MG TAB PO SCH ×2 (10:26→20:52)
[2018-05-06] MEDS: Ascorbic Acid TAB* 500 MG PO SCH (10:27)
[2018-05-06] MEDS: Cyanocobalamin TAB* 500 MCG PO SCH (10:27)
[2018-05-06] MEDS: DOXYcycline CAP(*) 100 MG PO SCH ×2 (10:28→20:51)
[2018-05-06] MEDS: Collagenase 250 MG/GM OINT* 30 GM TOPICAL SCH (10:28)
[2018-05-06] MEDS: OLANzapine TAB*ODT* 5 MG PO SCH ×2 (10:29→20:49)
[2018-05-06] MEDS: Magnesium Oxide TAB* 400 MG PO SCH ×2 (10:29→21:15)
--- NOTE | 2018-05-06 12:14 | CONSULT ---
Identification - Patient Identification Reason for Psychiatric Consultation: Patient Distress -: Patient is a 52 year old, M admitted on 04/17/18. - MHU Identification Employment Status: Disabled Hx Psychiatric Hospitalization: Yes History - Objective HPI: Gabriel appears euthymic today. He is informed by this clinician that the hospital is set to discharge him back to [facility] on Sunday (05/08) if another SNF does not materialize with a bed offer within the next 48 hours. Gabriel takes this in stride and reiterates his displeasure with their care, but does not attempt to manipulate his way out of this scenario. He continues to deny SI and is adhering with treatment on the [address] [place] [address] unit. Exam Appearance: Thin Framed Hygiene: Normal Grooming: Fairly Well Kept Psychomotor Activities: Normal Exhibits Abnormal Movement: No Attitude and Relatedness: Cooperative Eye Contact: Good - Speech Quality: Unpressured Latencies: Normal Quantity: Appropriate Patient's Decription of Mood: "Good" Observed Affect: Good Affect Consistent with: Euthymia Patient's Thought Process: Coherent Thought Content: No Passive Wish, No Suicidal Planning, No Homicidal Ideation, No Paranoid Ideation Experiencing Hallucinations: No, Sensorium is Clear Type of Hallucinations: Visual: No, Auditory: No, Command: No Level of Consciousness: Alert Orientation: Yes Intact, Yes Orientated to Time, Yes Orientated to Place, Yes Orientated to Person Impulse Control: Intact Insight and Judgement: Good Impression - Impression Clinical Impression: 52 y.o. , white male with paraplegia, arrives on 9.41 from [facility] following a suicidal gesture in which he tied a sheet around his neck and gestured to hang himself. Inpatient DSM-V Dx: F31.74 Merits Inpatient Hospitalization: No Problem List - MHU Problems Type of Problem: Mood Status of Problem: Resolved Plan - Treatment Plan Treatment Plan: The patient is not suicidal, nor a risk to himself. He has greatly improved on olanzapine 7.5mg PO BID and is agreeable to continue taking this. The suicidal gesture which led to this hospitalization was transient and done out of frustration. He is psychiatrically cleared for discharge and is awaiting placement. Gabriel is cognitively intact and has capacity to make informed decisions regarding placement. Psychiatry will continue to follow. Continued Medication Management: Start Medication Medications: Current Medications Acetaminophen (Tylenol Tab*) 650 mg PO Q4H PRN PRN Reason: PAIN/FEVER Last Admin: 05/01/18 09:47 Dose: 650 mg Al Hydrox/Mg Hydrox/Simethicone (Maalox Plus*) 30 ml PO Q6H PRN PRN Reason: INDIGESTION Albuterol (Ventolin 2.5 Mg/3 Ml Neb.Dayami*) 2.5 mg INH [id number] AWAKE PRN PRN Reason: SOB/WHEEZING Apixaban (Eliquis*) 5 mg PO BID [facility] Last Admin: 05/06/18 10:26 Dose: 5 mg Ascorbic Acid (Vitamin C Tab*) 1,000 mg PO DAILY [facility] Last Admin: 05/06/18 10:27 Dose: 1,000 mg Atorvastatin Calcium (Lipitor*) 10 mg PO 2100 [facility] Last Admin: 05/05/18 20:26 Dose: 10 mg Bisacodyl (Dulcolax Supp*) 10 mg GA DAILY PRN PRN Reason: CONSTIPATION Capsaicin (Zostrix 0.025% Cream*) 1 applic TOPICAL BID PRN PRN Reason: PAIN Collagenase (Santyl 250 Mg/Gm Oint*) 1 applic TOPICAL DAILY [facility] Last Admin: 05/06/18 10:28 Dose: Not Given Cyanocobalamin (Vitamin B12 Tab*) 1,000 mcg PO DAILY [facility] Last Admin: 05/06/18 10:27 Dose: 1,000 mcg Dantrolene Sodium (Dantrium Cap*) 25 mg PO TID [facility] Last Admin: 05/06/18 10:25 Dose: 25 mg Diphenhydramine HCl (Benadryl Po*) 25 mg PO Q6H PRN PRN Reason: ITCHING Last Admin: 05/02/18 00:49 Dose: 25 mg Docusate Sodium (Colace Cap*) 100 mg PO BID PRN PRN Reason: CONSTIPATION Last Admin: 05/05/18 14:45 Dose: 100 mg Doxycycline Hyclate (Vibramycin Cap(*)) 100 mg PO BID [facility] Last Admin: 05/06/18 10:28 Dose: 100 mg Magnesium Hydroxide (Milk Of Magnesia Liq*) 30 ml PO Q4H PRN PRN Reason: CONSTIPATION Last Admin: 05/05/18 14:44 Dose: 30 ml Magnesium Oxide (Magox 400 Tab*) 400 mg PO BID [facility] Last Admin: 05/06/18 10:29 Dose: 400 mg Melatonin (Melatonin) 3 mg PO BEDTIME PRN PRN Reason: SLEEP Last Admin: 05/02/18 00:49 Dose: 3 mg Metoprolol Succinate (Toprol Xl Tab*) 50 mg PO DAILY [facility] Last Admin: 05/06/18 10:25 Dose: 50 mg Morphine Sulfate (Morphine Oral Concentrate*) 5 mg PO Q8H PRN PRN Reason: PAIN Last Admin: 05/06/18 07:28 Dose: 5 mg Olanzapine (Zyprexa * Tab Odt) 7.5 mg PO BID [facility] Last Admin: 05/06/18 10:29 Dose: 7.5 mg Omeprazole (Prilosec Cap*) 20 mg PO DAILY@0600 [facility] Last Admin: 05/06/18 07:27 Dose: 20 mg Polyethylene Glycol/Electrolytes (Miralax*) 17 gm PO DAILY PRN PRN Reason: CONSTIPATION Last Admin: 05/05/18 14:37 Dose: 17 gm Pregabalin (Lyrica Cap(*)) 25 mg PO TID [facility] Last Admin: 05/06/18 10:24 Dose: 25 mg Sodium Biphosphate/Sodium Phosphate (Fleet Enema*) 1 bottle GA DAILY PRN PRN Reason: CONSTIPATION Temazepam (Restoril Cap*) 15 mg PO BEDTIME PRN PRN Reason: INSOMNIA Last Admin: 05/03/18 20:55 Dose: 15 mg Tizanidine HCl (Zanaflex Tab*) 4 mg PO QID PRN PRN Reason: SPASMS Last Admin: 05/06/18 01:26 Dose: 4 mg Tramadol HCl (Ultram*) 50 mg PO Q8H PRN PRN Reason: PAIN Last Admin: 05/06/18 07:27 Dose: 50 mg - Discharge Plan Discharge Plan: Outpatient Follow Up
[2018-05-06] MEDS: Atorvastatin* 10 MG TAB PO SCH (20:51)
[2018-05-07] MEDS: Omeprazole CAP* 20 MG PO SCH (06:36)
[2018-05-07] MEDS: DANTROLENE 25 MG PO SCH ×3 (09:43→22:32)
[2018-05-07] MEDS: OLANzapine TAB*ODT* 5 MG PO SCH ×2 (09:44→22:28)
[2018-05-07] MEDS: Pregabalin CAP(*) 25 MG PO SCH ×3 (09:46→22:30)
[2018-05-07] MEDS: Ascorbic Acid TAB* 500 MG PO SCH (09:46)
[2018-05-07] MEDS: Magnesium Oxide TAB* 400 MG PO SCH ×2 (09:46→22:31)
[2018-05-07] MEDS: Metoprolol Succinate XL TAB* 50 MG PO SCH (09:46)
[2018-05-07] MEDS: Cyanocobalamin TAB* 500 MCG PO SCH (09:46)
[2018-05-07] MEDS: DOXYcycline CAP(*) 100 MG PO SCH ×2 (09:46→22:32)
[2018-05-07] MEDS: Apixaban* 5 MG TAB PO SCH ×2 (09:46→22:31)
[2018-05-07] MEDS: Collagenase 250 MG/GM OINT* 30 GM TOPICAL SCH (09:47)
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
[2018-05-07] MEDS: Morphine ORAL CONCENTRATE* 5 MG/0.25 ML ORAL.SYRIN PO PRN (22:26)
[2018-05-07] MEDS: traMADol TAB* 50 MG PO PRN (22:28)
[2018-05-07] MEDS: Atorvastatin* 10 MG TAB PO SCH (22:31)
[2018-05-08] MEDS: Omeprazole CAP* 20 MG PO SCH (06:54)
[2018-05-08] MEDS: Apixaban* 5 MG TAB PO SCH (08:50)
[2018-05-08] MEDS: DOXYcycline CAP(*) 100 MG PO SCH (08:51)
[2018-05-08] MEDS: Pregabalin CAP(*) 25 MG PO SCH ×2 (08:51→13:53)
[2018-05-08] MEDS: Metoprolol Succinate XL TAB* 50 MG PO SCH (08:51)
[2018-05-08] MEDS: DANTROLENE 25 MG PO SCH ×2 (08:52→13:53)
[2018-05-08] MEDS: Ascorbic Acid TAB* 500 MG PO SCH (08:52)
[2018-05-08] MEDS: Cyanocobalamin TAB* 500 MCG PO SCH (08:52)
[2018-05-08] MEDS: Magnesium Oxide TAB* 400 MG PO SCH (08:52)
[2018-05-08] MEDS: OLANzapine TAB*ODT* 5 MG PO SCH (08:53)
[2018-05-08 09:51] VITALS: BP 131/76
[2018-05-08] MEDS: Collagenase 250 MG/GM OINT* 30 GM TOPICAL SCH (10:36)
--- NOTE | 2018-05-08 11:42 | CONSULT ---
Identification - Patient Identification Reason for Psychiatric Consultation: Suicidal Ideation -: Patient is a 52 year old, M admitted on 04/17/18. - MHU Identification Employment Status: Disabled Hx Psychiatric Hospitalization: Yes History - Objective HPI: I had a nice meeting with Gabriel this morning and he is in better spirits than yesterday. He appears to have adjusted to the reality that he will be returning to [facility] today. He apparently called [facility] yesterday and spoke with a senior case manager who told him that she would advocate on his behalf to have him accepted at [facility] as a lateral transfer. "I'll tell you, [facility] and [facility] are in for a real shock when they discover the lawsuit I'm filing against both of them." He is encouraged to advocate assertively for himself in the SNF setting, by speaking out to leadership when his needs are not being fulfilled. We have advocated through our social work department to have [facility] a lateral transfer to another [facility] as soon as he arrives back there. He denies passive or active SI. Exam Appearance: Thin Framed Hygiene: Normal Grooming: Fairly Well Kept Psychomotor Activities: Normal Exhibits Abnormal Movement: No Attitude and Relatedness: Cooperative Eye Contact: Good - Speech Quality: Unpressured Latencies: Normal Quantity: Appropriate Patient's Decription of Mood: "Okay" Observed Affect: Fair Affect Consistent with: Euthymia Patient's Thought Process: Coherent Thought Content: No Passive Wish, No Suicidal Planning, No Homicidal Ideation, No Paranoid Ideation Experiencing Hallucinations: No, Sensorium is Clear Type of Hallucinations: Visual: No, Auditory: No, Command: No Level of Consciousness: Alert Orientation: Yes Intact, Yes Orientated to Time, Yes Orientated to Place, Yes Orientated to Person Impulse Control: Intact Insight and Judgement: Good Impression - Impression Clinical Impression: 52 y.o. , white male with paraplegia, arrives on 9.41 from [facility] following a suicidal gesture in which he tied a sheet around his neck and gestured to hang himself. Inpatient DSM-V Dx: F31.74 Merits Inpatient Hospitalization: No Problem List - U Problems Type of Problem: Mood Status of Problem: Resolved Plan - Treatment Plan Treatment Plan: The patient is to be discharged today back to [facility]. He has significant personality pathology that has complicated his course of treatment and disposition while here at [facility]. Nonetheless, his mood has improved on olanzapine 7.5mg PO BID and this should be continued. He is psychiatrically cleared for discharge and we wish him the best in returning to [facility], his community of preference. Psychiatry is signing off. Continued Medication Management: Start Medication Medications: Current Medications Acetaminophen (Tylenol Tab*) 650 mg PO Q4H PRN PRN Reason: PAIN/FEVER Last Admin: 05/01/18 09:47 Dose: 650 mg Al Hydrox/Mg Hydrox/Simethicone (Maalox Plus*) 30 ml PO Q6H PRN PRN Reason: INDIGESTION Albuterol (Ventolin 2.5 Mg/3 Ml Neb.Dayami*) 2.5 mg INH [id number] AWAKE PRN PRN Reason: SOB/WHEEZING Apixaban (Eliquis*) 5 mg PO BID [facility] Last Admin: 05/08/18 08:50 Dose: 5 mg Ascorbic Acid (Vitamin C Tab*) 1,000 mg PO DAILY [facility] Last Admin: 05/08/18 08:52 Dose: 1,000 mg Atorvastatin Calcium (Lipitor*) 10 mg PO 2100 [facility] Last Admin: 05/07/18 22:31 Dose: 10 mg Bisacodyl (Dulcolax Supp*) 10 mg SD DAILY PRN PRN Reason: CONSTIPATION Capsaicin (Zostrix 0.025% Cream*) 1 applic TOPICAL BID PRN PRN Reason: PAIN Collagenase (Santyl 250 Mg/Gm Oint*) 1 applic TOPICAL DAILY [facility] Last Admin: 05/08/18 10:36 Dose: 1 applic Cyanocobalamin (Vitamin B12 Tab*) 1,000 mcg PO DAILY [facility] Last Admin: 05/08/18 08:52 Dose: 1,000 mcg Dantrolene Sodium (Dantrium Cap*) 25 mg PO TID [facility] Last Admin: 05/08/18 08:52 Dose: 25 mg Diphenhydramine HCl (Benadryl Po*) 25 mg PO Q6H PRN PRN Reason: ITCHING Last Admin: 05/02/18 00:49 Dose: 25 mg Docusate Sodium (Colace Cap*) 100 mg PO BID PRN PRN Reason: CONSTIPATION Last Admin: 05/05/18 14:45 Dose: 100 mg Doxycycline Hyclate (Vibramycin Cap(*)) 100 mg PO BID [facility] Last Admin: 05/08/18 08:51 Dose: 100 mg Magnesium Hydroxide (Milk Of Magnnanda Liq*) 30 ml PO Q4H PRN PRN Reason: CONSTIPATION Last Admin: 05/05/18 14:44 Dose: 30 ml Magnesium Oxide (Magox 400 Tab*) 400 mg PO BID [facility] Last Admin: 05/08/18 08:52 Dose: 400 mg Melatonin (Melatonin) 3 mg PO BEDTIME PRN PRN Reason: SLEEP Last Admin: 05/02/18 00:49 Dose: 3 mg Metoprolol Succinate (Toprol Xl Tab*) 50 mg PO DAILY [facility] Last Admin: 05/08/18 08:51 Dose: 50 mg Morphine Sulfate (Morphine Oral Concentrate*) 5 mg PO Q8H PRN PRN Reason: PAIN Last Admin: 05/07/18 22:26 Dose: 5 mg Olanzapine (Zyprexa * Tab Odt) 7.5 mg PO BID [facility] Last Admin: 05/08/18 08:53 Dose: 7.5 mg Omeprazole (Prilosec Cap*) 20 mg PO DAILY@0600 [facility] Last Admin: 05/08/18 06:54 Dose: 20 mg Polyethylene Glycol/Electrolytes (Miralax*) 17 gm PO DAILY PRN PRN Reason: CONSTIPATION Last Admin: 05/05/18 14:37 Dose: 17 gm Pregabalin (Lyrica Cap(*)) 25 mg PO TID [facility] Last Admin: 05/08/18 08:51 Dose: 25 mg Sodium Biphosphate/Sodium Phosphate (Fleet Enema*) 1 bottle SD DAILY PRN PRN Reason: CONSTIPATION Temazepam (Restoril Cap*) 15 mg PO BEDTIME PRN PRN Reason: INSOMNIA Last Admin: 05/03/18 20:55 Dose: 15 mg Tizanidine HCl (Zanaflex Tab*) 4 mg PO QID PRN PRN Reason: SPASMS Last Admin: 05/06/18 13:57 Dose: 4 mg Tramadol HCl (Ultram*) 50 mg PO Q8H PRN PRN Reason: PAIN Last Admin: 05/07/18 22:28 Dose: 50 mg - Discharge Plan Discharge Plan: Outpatient Follow Up
--- NOTE | 2018-05-08 13:03 | DS ---
CC: Dr. Fairchild; Dr. Young; Dr. Owen Garcia; Dr. Jewel Lezama; Dr. Robert Chan; Dr. Angel Mejiasara DISCHARGE SUMMARY: DATE OF ADMISSION: DATE OF DISCHARGE: 05/08/18 DISCHARGE DIAGNOSES: 1. Suicidal attempt. 2. Deep venous thrombosis, left femoral profunda, diagnosed on 04/30/18, currently on apixaban. 3. Anemia. 4. Decubitus skin ulcer stage II on the right ischial crest and right gluteal area. 5. Gastroesophageal reflux disease. 6. Neurogenic bladder. 7. Muscle spasm of the back. 8. Osteomyelitis. 9. Protein-calorie malnutrition. DISCHARGE MEDICATIONS: As follows: 1. Apixaban 5 mg p.o. b.i.d. 2. Santyl 250 mg/g ointment 1 application topically daily. 3. Cyanocobalamin 1000 mcg p.o. daily. 4. Dantrolene 25 mg p.o. t.i.d. 5. Diphenhydramine 25 mg p.o. q.6 p.r.n. 6. Doxycycline 100 mg p.o. b.i.d., dispensed 28. The patient advised to follow up with Dr. Young in 1 week post discharge. 7. MiraLAX 17 g p.o. daily p.r.n. 8. Pregabalin 25 mg p.o. t.i.d. 9. Fleet Enema 1 bottle p.r. daily p.r.n. 10. Temazepam 15 mg p.o. q.h.s. 11. Tramadol 50 mg p.o. q.8 hours p.r.n., dispensed 12 with 0 refill. 12. Tylenol 650 mg p.o. q.4 p.r.n. 13. Maalox Plus 30 mL p.o. q.6 p.r.n. 14. Albuterol HFA inhaler 1 puff inhalation q.4 p.r.n. 15. Vitamin C 1000 mg p.o. daily. 16. Atorvastatin 10 mg p.o. daily. 17. Capsaicin 1 application topically b.i.d. 18. Cholecalciferol 1000 units p.o. daily. 19. Colace 100 mg p.o. b.i.d. 20. Famotidine 20 mg p.o. b.i.d. 21. Milk of magnesia 30 mL p.o. q.4 hours p.r.n. 22. Magnesium oxide 400 mg p.o. daily. 23. Melatonin 3 mg p.o. q.h.s. 24. Metoprolol succinate 50 mg p.o. q.h.s. 25. Morphine concentrate oral syringe 5 mg p.o. q.8 p.r.n. 26. Nystatin 1 application topically b.i.d. 27. Olanzapine 7.5 mg p.o. b.i.d. 28. Tizanidine 4 mg p.o. four times a day. 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 During his hospital course, he has been seen by Psychiatry, who unfortunately mentioned that the patient is not a candidate for BSU stay and hence was placed into [facility]. During his course while waiting for bed availability, he subsequently developed DVT despite being on DVT prophylaxis and was subsequently placed on apixaban and has done well. His muscle spasm has been well controlled and he has been seen by ID for his chronic osteomyelitis and he was advised to follow up with Dr. Young in 1 week post discharge to clarify extent and range of further antibiotic therapy. He has been on doxycycline since 04/09/18. He had been advised to follow up with his facility MD within 3 days post discharge. If his symptoms resume or develop new ones or feel unwell for any reason, he is advised to call his facility provider first and if his provider cannot entertain him due to scheduling issues alone to call [facility] if his issue is not emergent. He was advised to follow up with Dr. Young in 1 week post discharge to further determine duration of the doxycycline. He was advised to call my office regarding any questions concerns or further clarifications regarding his discharge plans and/or prescriptions and to take his medications as prescribed. PHYSICAL EXAMINATION: Shows the most recent vital signs of records with blood pressure of 131/76, temperature of 99 degrees Fahrenheit, 102 beats per minute heart rate from previous of 95 and 92, 18 per minute respiratory rate, saturating at 96% on room air. General Appearance: The patient is awake, not in acute distress. HEENT: Normocephalic, atraumatic. PERRLA. Extraocular muscles intact. Negative for icterus. Moist oral mucosa. Negative throat erythema. Neck is soft, supple with no cervical lymphadenopathy, no JVD. Heart : S1, S2 within normal limits. Regular rate and rhythm. No murmurs, rubs, or gallops. Chest: Clear to auscultation bilaterally. Good air entry. No wheezes, rales, or rhonchi. Abdomen is soft, nondistended, nontender. Normoactive bowel sounds x4 quadrants. Extremities: No cyanosis, clubbing, or edema. Psychiatric: No active psychosis, depression, suicidal nor homicidal ideation. Skin is warm to touch. ADDENDUM: Pt will need to be on Doxycycline for [address] Young TIME SPENT: The total time spent evaluating the patient, reviewing pertinent data, and appropriate documentation is 60 minutes. [id number]/[facility] #: [id number] [facility] [place] DIVISIONTammy
[2018-05-08] MEDS: tiZANidine TAB* 2 MG PO PRN (13:54)
== END 2018-05-08 14:15 | DRG 637 ==
LOC: MED 13:49
PROVIDERS: ADMIT Internal Medicine; ATTEND Student in an Organized Health Care Education/Training Program
DX: E11.69 Type 2 diabetes mellitus with other specified complication (principal); E43 Unspecified severe protein-calorie malnutrition; G82.20 Paraplegia, unspecified; M86.652 Other chronic osteomyelitis, left thigh; Z68.1 Body mass index [BMI] 19.9 or less, adult; N31.9 Neuromuscular dysfunction of bladder, unspecified; K21.9 Gastro-esophageal reflux disease without esophagitis; F41.9 Anxiety disorder, unspecified; L89.152 Pressure ulcer of sacral region, stage 2; I10 Essential (primary) hypertension; E78.5 Hyperlipidemia, unspecified; R33.9 Retention of urine, unspecified; F31.74 Bipolar disorder, in full remission, most recent episode manic; I51.9 Heart disease, unspecified; G83.89 Other specified paralytic syndromes; R00.0 Tachycardia, unspecified; E11.21 Type 2 diabetes mellitus with diabetic nephropathy; D64.9 Anemia, unspecified; M62.830 Muscle spasm of back; E83.42 Hypomagnesemia; I82.412 Acute embolism and thrombosis of left femoral vein; I82.532 Chronic embolism and thrombosis of left popliteal vein; R82.71 Bacteriuria; H54.61 Unqualified visual loss, right eye, normal vision left eye; Z87.440 Personal history of urinary (tract) infections; Z23 Encounter for immunization; I69.398 Other sequelae of cerebral infarction; Z88.6 Allergy status to analgesic agent; Z79.01 Long term (current) use of anticoagulants; Z98.1 Arthrodesis status; Z86.14 Personal history of Methicillin resistant Staphylococcus aureus infection; Z87.891 Personal history of nicotine dependence
CPT/HCPCS: 36415; 80048; 80053; 80076; 81003; 81015; 82570; 82607; 82728; 82746; 83036; 83540; 83550; 83735; 84100; 84134; 84300; 84439; 84443; 85025; 85652; 86140; 87040; 87077; 87086; 87184; 87186; 90686; 93005; A9270-GY; G8978-GP-CL; G8979-GP-CI; J1644; J2270; J3475

== ENCOUNTER 2018-09-20 20:41 | Emergency (ER) | payer MEDICARE, OTHER ==
--- NOTE | 2018-09-20 21:08 | ED ---
GI/ HPI - HPI Summary HPI Summary: Pt is 53 y/o M who presents to ED c/o suprapubic catheter difficulties. He states that the catheter came out approximately 1.5 hours ago and he has had this catheter for 4 years due to being paraplegic. Denies headache, chest pain, or cold symptoms. - History of Current Complaint Chief Complaint: EDUrogenitalProblems Time Seen by Provider: 09/20/18 21:04 Stated Complaint: CATH ISSUE Hx Obtained From: Patient Onset/Duration: Started Hours Ago, Still Present Timing: Constant Current Severity: None Pain Intensity: 0 Associated Signs and Symptoms: Negative: Fever Aggravating Factor(s): Nothing Alleviating Factor(s): Nothing - Additional Pertinent History Primary Care Physician: MICHAEL - Allergy/Home Medications Allergies/Adverse Reactions: Allergies Allergy/AdvReac Type Severity Reaction Status Date / Time oxycodone [From Percocet] Allergy Itching Verified 03/23/18 21:33 PMH/Surg Hx/FS Hx/Imm Hx Endocrine/Hematology History: Reports: Hx Anemia Denies: Hx Diabetes Cardiovascular History: Reports: Hx Hypercholesterolemia, Hx Hypertension GI History: Reports: Hx Gastroesophageal Reflux Disease History: Denies: Hx Renal Disease Musculoskeletal History: Reports: Other Musculoskeletal History - Paralysis Sensory History: Reports: Hx Contacts or Glasses, Hx Glaucoma, Hx Legally Blind , Hx Vision Problem Denies: Hx Hearing Aid Opthamlomology History: Reports: Hx Contacts or Glasses, Hx Glaucoma, Hx Legally Blind, Hx Vision Problem Neurological History: Reports: Other Neuro Impairments/Disorders - Positive paralysis Psychiatric History: Reports: Hx Depression Denies: Hx Eating Disorder - Surgical History Surgery Procedure, Year, and Place: VENTRICULOPERITONEAL SHUNT, ABDOMINAL SURGERY WITH INSERTION OF SUPRAPUBIC CATHETER, TRANSURETHRAL RESECTION OF THE PROSTATE, URETEROSTOMY Infectious Disease History: Yes Infectious Disease History: Reports: Hx of Known/Suspected MRSA Denies: Traveled Outside the [place] in Last 30 Days - Family History Known Family History: Negative: Respiratory Disease, Seizure Disorder, Blood Disorder - Social History Alcohol Use: Rare Substance Use Type: Reports: Marijuana Smoking Status (MU): Former Smoker Review of Systems Negative: Fever Negative: Cough Positive: Other - Suprapubic catheter difficulties Negative: Headache All Other Systems Reviewed And Are Negative: Yes Physical Exam - Summary Physical Exam Summary: Appearance: Well-appearing, Well-nourished, lying in bed comfortable, Skin: Warm, dry, no obvious rash Eyes: sclera anicteric, no conjunctival pallor ENT: mucous membranes moist Neck: deferred Respiratory: No signs of respiratory distress Cardiovascular: Appears well perfused, pulses are nml Abdomen: Suprapubic stoma Musculoskeletal: Paraplegic Neurological: Awake and alert, mentation is normal, speech is fluent and appropriate Psychiatric: affect is normal, does not appear anxious or depressed Triage Information Reviewed: Yes Vital Signs On Initial Exam: Initial Vitals Temp Pulse Resp BP Pulse Ox 97.7 F 123 18 109/74 96 09/20/18 20:50 09/20/18 20:50 09/20/18 20:50 09/20/18 20:50 09/20/18 20:50 Vital Signs Reviewed: Yes Diagnostics - Vital Signs Vital Signs Temp Pulse Resp BP Pulse Ox 09/20/18 20:50 97.7 F 123 18 109/74 96 - Laboratory Lab Statement: Any lab studies that have been ordered have been reviewed, and results considered in the medical decision making process. GIGU Course/Dx - Course Course Of Treatment: Pt is 53 y/o M who presents to ED c/o suprapubic catheter difficulties. He states that the catheter came out approximately 1.5 hours ago and has had this catheter for 4 years due to being paraplegic. Denies headache, chest pain, or cold symptoms. Physical exam reveals suprapubic stoma and paraplegia. Labs were normal. Insertion of 23 inch suprapubic catheter was performed without difficulty. Pt will be discharged home with diagnosis of suprapubic catheter dysfunction. Pt is agreeable with this plan. - Diagnoses Provider Diagnoses: Suprapubic catheter dysfunction Discharge - Sign-Out/Discharge Documenting (check all that apply): Patient Departure - Discharge Patient Received Moderate/Deep Sedation with Procedure: No - Discharge Plan Condition: Improved Disposition: HOME Patient Education Materials: How to Care for Your Suprapubic Catheter (DC) Referrals: Zoie Alexander [Primary Care Provider] - If Needed - Billing Disposition and Condition Condition: IMPROVED Disposition: Home - Attestation Statements Document Initiated by Scribe: Yes Documenting Scribe: Marika Pereyra Provider For Whom Scribe is Documenting (Include Credential): Shawn Silver MD Scribe Attestation: Marika Macias, scribed for Shawn Silver MD on 09/24/18 at 1418. Scribe Documentation Reviewed: Yes Provider Attestation: The documentation as recorded by the Marika herrera accurately reflects the service I personally performed and the decisions made by Shawn pyle MD Status of Scribe Document: Viewed
[2018-09-20 21:41] LABS: Urine Appearance Turbid; Urine Bacteria 1+ (Absent); Urine Bilirubin Negative (Negative); Urine Blood 3+ (Negative); Urine Color Amber; Urine Glucose Negative (Negative); Urine Ketones Negative (Negative); Urine Nitrite Negative (Negative); Urine Protein 2+(100 mg/dL) (Negative); Urine Red Blood Cell 3+(>10/hpf) (Absent); Urine Specific Gravity 1.014 (1.010-1.030); Urine Urobilinogen Negative (Negative); Urine White Blood Cell 3+(>20/hpf) (Absent)
[2018-09-21 00:50] VITALS: BP 107/56
== END 2018-09-21 00:50 | disposition home or self-care (01) ==
LOC: ED 20:41
DX: T83.9XXA Unspecified complication of genitourinary prosthetic device, implant and graft, initial encounter (principal); G82.20 Paraplegia, unspecified; Z88.5 Allergy status to narcotic agent; Z87.891 Personal history of nicotine dependence
CPT/HCPCS: 51702; 81003; 81015; 87086; 99282

== ENCOUNTER → 2018-11-15 12:19 | Emergency (ER) | payer MEDICARE ==
--- NOTE | 2018-11-15 13:01 | ED ---
GI/ HPI - HPI Summary HPI Summary: Pt. is a 53 y.o male who presents to the ER for decreased outpt. for his suprapubic catheter times one day. Patient resides at [facility] and has a history of paraplegia and has had surgery pubic catheter for years. Patient denies fever, chills, abdominal pain, nausea, vomiting. Patient states that catheter was changed about 3 weeks ago. Symptoms are mild in severity. No current modifying factors. - History of Current Complaint Chief Complaint: EDUrogenitalProblems Time Seen by Provider: 11/15/18 12:41 Stated Complaint: CATH ISSUES PER EMS Hx Obtained From: Patient Pain Intensity: 0 - Additional Pertinent History Primary Care Physician: MICHAEL - Allergy/Home Medications Allergies/Adverse Reactions: Allergies Allergy/AdvReac Type Severity Reaction Status Date / Time oxycodone [From Percocet] Allergy Itching Verified 03/23/18 21:33 Home Medications: Home Medications Morphine Sulfate [Ms Contin] 15 mg PO Q12HR 11/15/18 [History Confirmed 11/15/18 ] Nut.sup,Spec,Lac-Free,Iron/Fos [Twocal Hn Liquid] 237 ml PO ACHS 11/15/18 [ History Confirmed 11/15/18] OLANzapine TAB* [Zyprexa 10 MG TAB*] 15 mg PO BEDTIME 11/15/18 [History Confirmed 11/15/18] Sennosides/Docusate Sodium [Senna-S Tablet] 2 tab PO BEDTIME 11/15/18 [History Confirmed 11/15/18] metFORMIN* [Glucophage 500 MG TAB *] 500 mg PO BID AC 11/15/18 [History Confirmed 11/15/18] PMH/Surg Hx/FS Hx/Imm Hx Previously Healthy: Yes Endocrine/Hematology History: Reports: Hx Diabetes - diet controlled, no meds, Hx Anemia Cardiovascular History: Reports: Hx Hypercholesterolemia, Hx Hypertension GI History: Reports: Hx Gastroesophageal Reflux Disease History: Denies: Hx Renal Disease Musculoskeletal History: Reports: Other Musculoskeletal History - Paralysis Sensory History: Reports: Hx Contacts or Glasses, Hx Glaucoma, Hx Legally Blind , Hx Vision Problem Denies: Hx Hearing Aid Opthamlomology History: Reports: Hx Contacts or Glasses, Hx Glaucoma, Hx Legally Blind, Hx Vision Problem Neurological History: Reports: Other Neuro Impairments/Disorders - Positive paralysis Psychiatric History: Reports: Hx Depression Denies: Hx Eating Disorder - Surgical History Surgery Procedure, Year, and Place: VENTRICULOPERITONEAL SHUNT, ABDOMINAL SURGERY WITH INSERTION OF SUPRAPUBIC CATHETER, TRANSURETHRAL RESECTION OF THE PROSTATE, URETEROSTOMY Infectious Disease History: No Infectious Disease History: Reports: Hx of Known/Suspected MRSA Denies: Traveled Outside the [place] in Last 30 Days - Family History Known Family History: Positive: Unknown - Due to anxiety, patient is not able to give a full history Negative: Respiratory Disease, Seizure Disorder, Blood Disorder - Social History Occupation: Disabled Lives: At [facility] Alcohol Use: Rare Substance Use Type: Reports: Marijuana Smoking Status (MU): Former Smoker Review of Systems Constitutional: Negative Negative: Fever, Chills Gastrointestinal: Negative Negative: Abdominal Pain, Vomiting, Nausea Positive: other - blockage of suprapubic catheter. All Other Systems Reviewed And Are Negative: Yes Physical Exam Triage Information Reviewed: Yes Vital Signs On Initial Exam: Initial Vitals Temp Pulse Resp BP Pulse Ox 99.2 F 109 20 91/68 93 11/15/18 12:28 11/15/18 12:28 11/15/18 12:28 11/15/18 12:28 11/15/18 12:28 Vital Signs Reviewed: Yes Appearance: Positive: Well-Appearing - Pt. Procedures - Procedure Summary Procedure Summary: Suprapubic catheter replacement: Insertion site cleaned with betadine. 10cc saline removed from balloon and catheter removed. 22 chinese swenson inserted and balloon filled with 10 cc saline. Catheter draining into bag. Insertion site cleaned with betadine. Procedure performed in sterile fashion. Pt. tolerated well. Procedure performed by Dr. Call. Diagnostics - Vital Signs Vital Signs Temp Pulse Resp BP Pulse Ox 11/15/18 12:28 99.2 F 109 20 91/68 93 - Laboratory Lab Statement: Any lab studies that have been ordered have been reviewed, and results considered in the medical decision making process. GIGU Course/Dx - Course Course Of Treatment: Pt. presenting for suprapubic catheter malfunction. He is afebrile without complaints otherwise. Nurse attempted to flush catheter without success. Catheter was changed as noted above and drained well. WIll dc back to senior living. To f.u with urology as scheduled. - Diagnoses Provider Diagnoses: Suprapubic catheter dysfunction Discharge - Sign-Out/Discharge Documenting (check all that apply): Patient Departure Patient Received Moderate/Deep Sedation with Procedure: No - Discharge Plan Condition: Improved Disposition: HOME Patient Education Materials: How to Care for Your Suprapubic Catheter (DC) Referrals: Zoie Alexander [Primary Care Provider] - Additional Instructions: Follow up with your urologist as scheduled Return to ER if symptoms change or worsen - Billing Disposition and Condition Condition: IMPROVED Disposition: Home
[2018-11-15 15:36] VITALS: BP 100/64
== END | disposition home or self-care (01) ==
LOC: ED 12:19
DX: T83.9XXA Unspecified complication of genitourinary prosthetic device, implant and graft, initial encounter (principal); I10 Essential (primary) hypertension; E11.9 Type 2 diabetes mellitus without complications; D64.9 Anemia, unspecified; E78.00 Pure hypercholesterolemia, unspecified; K21.9 Gastro-esophageal reflux disease without esophagitis; G82.20 Paraplegia, unspecified; Z88.8 Allergy status to other drugs, medicaments and biological substances; Z79.84 Long term (current) use of oral hypoglycemic drugs; Z98.2 Presence of cerebrospinal fluid drainage device; Z87.891 Personal history of nicotine dependence
CPT/HCPCS: 51702; 99282

== ENCOUNTER 2018-11-21 10:27 | Inpatient (IN) | payer MEDICARE ==
--- NOTE | 2018-11-21 10:40 | ED ---
Complex/Multi-Sys Presentation - HPI Summary HPI Summary: A 53 y/o male brought in by [facility] ambulance presents to [facility] with a chief complaint of requiring treatment for MRSA to his hip. The patient has a Hx of osteomyelitis. The patient was sent from [facility] [place]. He denies fever. At triage he rated his pain as a 0/10 in severity. - History Of Current Complaint Time Seen by Provider: 11/21/18 10:30 Hx Obtained From: Patient Onset/Duration: Sudden Onset, Lasting Hours, Still Present Timing: Constant Severity Currently: Mild Severity Initially: Mild Character: Unable To Describe Aggravating Factor(s): nothing Alleviating Factor(s): nothing Associated Signs And Symptoms: Negative: Fever - Allergies/Home Medications Allergies/Adverse Reactions: Allergies Allergy/AdvReac Type Severity Reaction Status Date / Time oxycodone [From Percocet] Allergy Itching Verified 11/19/18 11:04 PMH/Surg Hx/FS Hx/Imm Hx Endocrine/Hematology History: Reports: Hx Diabetes - diet controlled, no meds, Hx Anemia Cardiovascular History: Reports: Hx Hypercholesterolemia, Hx Hypertension GI History: Reports: Hx Gastroesophageal Reflux Disease History: Denies: Hx Renal Disease Musculoskeletal History: Reports: Other Musculoskeletal History - Paralysis Sensory History: Reports: Hx Contacts or Glasses, Hx Glaucoma, Hx Legally Blind , Hx Vision Problem Denies: Hx Hearing Aid Opthamlomology History: Reports: Hx Contacts or Glasses, Hx Glaucoma, Hx Legally Blind, Hx Vision Problem Neurological History: Reports: Other Neuro Impairments/Disorders - Positive paralysis Psychiatric History: Reports: Hx Depression Denies: Hx Eating Disorder - Surgical History Surgery Procedure, Year, and Place: VENTRICULOPERITONEAL SHUNT, ABDOMINAL SURGERY WITH INSERTION OF SUPRAPUBIC CATHETER, TRANSURETHRAL RESECTION OF THE PROSTATE, URETEROSTOMY Infectious Disease History: Reports: Hx of Known/Suspected MRSA - Family History Known Family History: Negative: Respiratory Disease, Seizure Disorder, Blood Disorder - Social History Alcohol Use: None Substance Use Type: Reports: None Smoking Status (MU): Former Smoker Review of Systems Negative: Fever Positive: Other - positive: MRSA infection to hip All Other Systems Reviewed And Are Negative: Yes Physical Exam - Summary Physical Exam Summary: Appearance: The patient is well-nourished in no acute distress and in no acute pain. Skin: The skin is warm and dry and skin color reflects adequate perfusion. HEENT: The head is normocephalic and atraumatic. The pupils are equal and reactive. The conjunctivae are clear and without drainage. Nares are patent and without drainage. Mouth reveals moist mucous membranes and the throat is without erythema and exudate. The external ears are intact. The ear canals are patent and without drainage. The tympanic membranes are intact. Neck: The neck is supple with full range of motion and non-tender. There are no carotid bruits. There is no neck vein distension. Respiratory: Chest is non-tender. Lungs are clear to auscultation and breath sounds are symmetrical and equal. Cardiovascular: Heart is regular rate and rhythm. There is no murmur or rub auscultated. There is no peripheral edema and pulses are symmetrical and equal. Abdomen: The abdomen is soft and non-tender. There are normal bowel sounds heard in all four quadrants and there is no organomegaly palpated. Musculoskeletal: Surgical scar left hip, no open wound, There is no back tenderness noted. Extremities are non-tender with full range of motion. There is good capillary refill. There is no peripheral edema or calf tenderness elicited. Neurological: Patient is awake and alert and oriented to person, place and time. The patient has symmetrical motor strength in all four extremities. Cranial nerves are grossly intact. Deep tendon reflexes are symmetrical and equal in all four extremities. Psychiatric: The patient has an appropriate affect and does not exhibit any anxiety or depression. Triage Information Reviewed: Yes Vital Signs Reviewed: Yes Diagnostics - Laboratory Result Diagrams: 11/21/18 11:18 11/21/18 11:18 Lab Statement: Any lab studies that have been ordered have been reviewed, and results considered in the medical decision making process. Complex Multi-Symp Course/Dx Course Of Treatment: Mr. Barth was sent in by Dr. Mae with a diagnosis of MRSA osteomyelitis made as an outpatient. The ambulance reported that his heart rate was about [address] and his blood pressure was about 90. On arrival his heart rate is in the 120s as is his blood pressure. He did get some fluid on the way in. IV fluids were initiated as well as IV vancomycin. Labs were obtained and revealed an elevated white blood cell count of 14,000. His lactic acid was also elevated at 3.5 and surprisingly his troponin was elevated. We don't have an old troponin to compare. Technically he met septic criteria however in reviewing his old charts he is chronically tachycardic. Nevertheless she was given IV fluids as well as antibiotics and the hospitalist service was contacted for admission. - Diagnoses Provider Diagnoses: Osteomyelitis, MRSA (methicillin resistant Staphylococcus aureus) - Physician Notifications Discussed Care Of Patient With: Lorraine Kamara Time Discussed With Above Provider: 10:44 Instructed by Provider To: Admit As Inpatient Discharge - Sign-Out/Discharge Documenting (check all that apply): Patient Departure - admit Patient Received Moderate/Deep Sedation with Procedure: No - Discharge Plan Condition: Fair Disposition: ADMITTED TO [facility] - Billing Disposition and Condition Condition: FAIR Disposition: Admitted to [facility] - Attestation Statements Document Initiated by Scribe: Yes Documenting Scribe: Woody Huddleston Provider For Whom Breonna is Documenting (Include Credential): Shawn Hanson MD Scribe Attestation: Woody Macias, scribed for Shawn Hanson MD on 11/21/18 at 1627. Scribe Documentation Reviewed: Yes Provider Attestation: The documentation as recorded by the Woody herrera accurately reflects the service I personally performed and the decisions made by , Shawn Hanson MD Status of Scribe Document: Viewed
[2018-11-21] MEDS ORDERED: NS 0.9% 1000 ML** 1,000 ML IV ONE ×4 (10:42→15:28)
[2018-11-21] MEDS ORDERED: Vancomycin(*) 1,000 MG in NS 0.9% 250 ML* 250 ML IVPB ONE (10:42)
--- OUTSIDE RECORDS SUMMARY | 2018-11-21 10:57 | XMS REPORT | Continuity of Care Document ---
:1965 External Reference #:[id number] Author Name Rashmi Walls Care Team Providers Name Role Phone Christian Rodriguez M.D. 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 Payers Date Identification Numbers Payment Provider Subscriber Policy Number: [id number] Medicare Gabriel Barth PayID: [id number] [address] [place] [address] Expires: 2017 Policy Number: [id number] Medicaid Gabriel Barth Group Name: 1 1 [address] PayID: [id number] [place] [address] Advance Directives Description No Information Available Problems Description No Information Family History Date Family Member(s) Observation Comments General No Current Problems Social History Type Date Description Comments Sex Unknown Tobacco Use Start: Unknown End: Patient is a former smoker smoked 1.5 ppd from Unknown age [age] Smoking Status Reviewed: 11/07/18 Patient is a former smoker smoked 1.5 ppd from age [age] Allergies, Adverse Reactions, Alerts Date Description Reaction Status Severity Comments 05/21/2018 Percocet sweats, itching Active Medications Medication Date Status Form Strength Qnty SIG Indications Ordering Provider Eliquis Active Tablets 5mg 1 by mouth Unknown /0000 twice a day Santyl Active Ointment 250Unit/G apply Unknown /0000 M ointment to wound as directed daily Cyanocobalamin Active po qd Unknown /0000 Dantrolene Active 1 po tid Unknown Sodium /0000 Diphenhydramine Active Capsules 25mg 1 po q 6 Unknown HCL /0000 hrs as needed Doxycycline Active Capsules 100mg one tablet Unknown Hyclate /0000 twice daily Miralax Active Packet 3350NF 17 gram Unknown /0000 once a day prn Pregabalin Active po tid Unknown /0000 Fleet Enema Active Enema 7-19GM/11 one enema Unknown /0000 8ML rectally as needed every 24 hours Temazepam Active Capsules 15mg 1 tablet by Unknown /0000 mouth once daily at bedtime Tramadol HCL Active Tablets 50mg 1 tablet by Unknown /0000 mouth every 8 hours as needed pain Tylenol Active Capsules 325mg 2 tablets Unknown / every 4 hours as needed for pain Maalox Plus Active Suspension 400-400-4 30 /0000 0mg/5ML milliliters by mouth q6hr as needed indigestion Albuterol HFA Active Aerosol 108(90Bas 2 puffs by Unknown /0000 e) mouth four mcg/Act times a day as needed Vitamin C Active Tablets 1000mg 1 by mouth Unknown / every day Atorvastatin Active Tablets 10mg 1 by mouth Unknown Calcium / every day Capsaicin Active apply / topically bid Cholecalciferol Active once daily / Colace Active Capsules 100mg 1 tab twice Unknown /0000 daily Famotidine Active Tablets 20mg 1 by mouth Unknown /0000 twice a day Milk Of Magnesia Active Suspension 400mg/5ML 30ml by Unknown /0000 mouth every 4 hrs as needed Magnesium Oxide Active Tablets 400mg 1 by mouth Unknown /0000 every day Melatonin Active Capsules 3mg 1 tab by Unknown /0000 mouth every night at bedtime Metoprolol Active Tablets ER 50mg 1 by mouth Unknown Succinate ER / 24HR every day at bedtime Morphine Sulfate Active Solution 5 mg by Unknown (Concentrate) /0000 mouth every 8 hours for pain as needed Nystatin Active topically Unknown /0000 twice a day as needed Olanzapine Active Tablets 7.5mg one tablet Unknown /0000 twice daily Tizanidine HCL Active Capsules 4mg 1 by mouth Unknown /0000 twice daily Metformin HCL Active Tablets 500mg 1 by mouth Unknown /0000 twice a day Immunizations Description No Information Available Vital Signs Date Vital Result Comment 11/07/2018 1:46pm Height 72 inches 6'0" Weight 160.00 lb per pt Heart Rate 92 /min BP Systolic Sitting 102 mmHg BP Diastolic Sitting 58 mmHg Respiratory Rate 14 /min Body Temperature 98.9 F BMI (Body Mass Index) 21.7 kg/m2 08/08/2018 1:44pm Height 72 inches 6'0" Weight 186.00 lb per pt Heart Rate 84 /min BP Systolic Sitting 102 mmHg BP Diastolic Sitting 72 mmHg Respiratory Rate 14 /min Body Temperature 97.9 F BMI (Body Mass Index) 25.2 kg/m2 06/24/2018 2:44pm Height 72 inches 6'0" Heart Rate 92 /min BP Systolic Sitting 92 mmHg BP Diastolic Sitting 56 mmHg Respiratory Rate 14 /min Body Temperature 99.7 F 05/21/2018 9:29am Height 72 inches 6'0" Weight 180.00 lb per pt Heart Rate 98 /min BP Systolic Sitting 92 mmHg BP Diastolic Sitting 54 mmHg Respiratory Rate 14 /min Body Temperature 98.3 F BMI (Body Mass Index) 24.4 kg/m2 Results Test Date Facility Test Result H/L Range Note Comp Metabolic Panel 11/01/2018 [facility] Sodium 134 mmol/L Low 135-[address] [place] [address] [phone] Potassium 4.8 mmol/L N 3.5-5.0 Chloride 97 mmol/L Low 101-111 Co2 Carbon Dioxide 31 mmol/L N 22-32 Anion Gap 6 mmol/L N 2-11 Calcium 8.2 mg/dL Low 8.6-10.3 Albumin 2.4 g/dL Low 3.2-5.2 Total Bilirubin 0.30 mg/dL N 0.2-1.0 Glucose 92 mg/dL N 70-100 Blood Urea Nitrogen 18 mg/dL N 6-24 Creatinine 0.74 mg/dL N 0.67-1.17 BUN/Creatinine Ratio 24.3 High 8-20 Total Protein 6.5 g/dL N 6.4-8.9 Globulin 4.1 g/dL High 2-4 Albumin/Globulin Ratio 0.6 Low 1-3 Alkaline Phosphatase 80 U/L N 34-104 Alt 11 U/L N 7-52 Ast 14 U/L N 13-39 Egfr Non- 110.6 >60 Egfr 133.9 >60 1 Laboratory test 11/01/2018 [facility] C Reactive 129.46 mg/L High <8.[address] [place] [address] [phone] CBC Auto Diff 11/01/2018 [facility] White Blood 12.0 High 3.5- 10.[address] Count 10^3/[place] [address] [phone] Red Blood Count 3.24 10^6/uL Low 4.18-5.48 Hemoglobin 8.4 g/dL Low 14.0-18.0 Hematocrit 27 % Low 36-46 Mean Corpuscular Volume 82 fL N 80-94 Mean Corpuscular Hemoglobin 26 pg Low 27-31 Mean Corpuscular HGB Conc 31 g/dL N 31-36 Red Cell Distribution Width 17 % High 10.5-15 Platelet Count 421 10^3/uL N 150-450 Mean Platelet Volume 8.1 fL N 7.4-10.4 Abs Neutrophils 9.0 10^3/uL High 1.5-7.7 Abs Lymphocytes 1.9 10^3/uL N 1.0-4.8 Abs Monocytes 0.6 10^3/uL N 0-0.8 Abs Eosinophils 0.3 10^3/uL N 0-0.6 Abs Basophils 0.1 10^3/uL N 0-0.2 Abs Nucleated RBC 0 10^3/uL Granulocyte % 75.3 % Lymphocyte % 16.1 % Monocyte % 5.1 % Eosinophil % 2.8 % Basophil % 0.7 % Nucleated Red Blood Cells % 0 Laboratory test 11/01/2018 [facility] Erythrocyte Sed 126 mm/Hr High 0-20 [address] [place] [address] [phone] BUN/Creat/GFR 11/01/2018 [facility] Poc Blood Urea 16 mg/dL N 8-[address] [place] [address] [phone] Poc Creatinine 0.8 mg/dL N 0.6-1.3 3 Poc BUN/Creatinine Ratio 20.0 N 8-20 Egfr Non- 101.1 >60 Egfr 122.4 >60 4 1 Because ethnic data is not always readily available, this report includes an eGFR for both -Americans and non- Americans. The National Kidney Disease Education Program (NKDEP) does not endorse the use of the MDRD equation for patients that are not between the ages of 18 and 70, are , have extremes of body size, muscle mass, or nutritional status, or are non- or non-. According to the National Kidney Foundation, irrespective of diagnosis, the stage of the disease is based on the level of kidney function: Stage Description GFR(mL/min/1.73 m(2)) 1 Kidney damage with normal or decreased GFR 90 2 Kidney damage with mild decrease in GFR 60-89 3 Moderate decrease in GFR 30-59 4 Severe decrease in GFR 15-29 5 Kidney failure <15 (or dialysis) 2 Test Performed by: [facility] [address] [place], [place] [address] Carter Gonzalez M.D. Director of Laboratory 3 Workers' Compensation Hearings Officer: [id number] 4 Because ethnic data is not always readily available, this report includes an eGFR for both -Americans and non- Americans. The National Kidney Disease Education Program (NKDEP) does not endorse the use of the MDRD equation for patients that are not between the ages of 18 and 70, are , have extremes of body size, muscle mass, or nutritional status, or are non- or non-. According to the National Kidney Foundation, irrespective of diagnosis, the stage of the disease is based on the level of kidney function: Stage Description GFR(mL/min/1.73 m(2)) 1 Kidney damage with normal or decreased GFR 90 2 Kidney damage with mild decrease in GFR 60-89 3 Moderate decrease in GFR 30-59 4 Severe decrease in GFR 15-29 5 Kidney failure <15 (or dialysis) Procedures Date Code Description Status 11/06/2018 56124 Debridement Muscle/Fascia,Epidermis/Dermis/Tissue,Addtl 20 Completed SQ CM 11/06/2018 01947 Debridement Muscle/Fascia,Epidermis/Dermis/Tissue, 20 Completed SQ CM 11/06/2018 39739 Debridement Skin, Subcutaneous Tissue & Muscle Completed 11/06/2018 77261 Debridement Skin,& sq Tissue Completed 10/30/2018 77979 Debridement Muscle/Fascia,Epidermis/Dermis/Tissue,1St 20 Completed SQ CM 10/30/2018 77387 Debridement Skin,& sq Tissue Completed 04/23/2018 67991 EKG, Interpretation Only Completed 04/20/2018 40390 EKG, Interpretation Only Completed 04/07/2018 45743 ECHO Transthorasic Realtime 2D W Doppler & Color Flow Hosp Completed 04/04/2018 89836 EKG, Interpretation Only Completed 04/01/2018 61110 EEG Recording Awake & Asleep Completed 03/31/2018 80433 EKG, Interpretation Only Completed Encounters Type Date Location Provider Dx Diagnosis Office Visit 10/16/2018 [facility] [id number] Pressure ulcer of 9:30a [facility] [place] MD Umu sacral region, stage 3 L97.929 Non-prs chronic ulc unsp prt of l low leg w unsp severity Office Visit 09/04/2018 9:30a [facility] Carias89.323 Pressure ulcer [facility] [place] MD Umu of left buttock, stage 3 Office Visit 08/08/2018 1:40p [facility] For Shemar Harp M86.652 Other chronic Infectious Rosa Huggins osteomyelitis, Diseases left thigh 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 classd elswhr Z79.2 custodial (current) use of antibiotics Office Visit 07/10/2018 11:15a [facility] Ernie Carias89.323 Pressure ulcer [facility] [place] MD Umu of left buttock, stage 3 Office Visit 06/24/2018 2:40p [facility] Betzaida Harp M86.652 Other chronic Infectious Rosa Huggins osteomyelitis, Diseases left thigh 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 classd elswhr Z79.2 custodial (current) use of antibiotics M25.551 Pain in right hip Office Visit 06/19/2018 10:00a [facility] Ernie [id number] Pressure ulcer Center [facility] [place] MD Umu of left buttock, stage 3 Office Visit 06/05/2018 9:30a Wound Care Ernie [id number] Pressure ulcer Center [facility] [place] [facility] [place] MD Umu of left buttock, stage 3 M86.652 Other chronic osteomyelitis, left thigh G82.20 Paraplegia, unspecified Office Visit 05/21/2018 [facility] Shemar Harp M86.652 Other chronic 9:50a For Infectious Rosa Huggins osteomyelitis, left Diseases thigh 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 classd elswhr L89.150 Pressure ulcer of sacral region, unstageable Office Visit 05/08/2018 [facility] John Valiente R45.851 Suicidal 9:18a Assoc,darling Diallo MD ideations Hospitalists I82.412 Acute embolism and thrombosis of left femoral vein L98.419 Non-pressure chronic ulcer of buttock with unsp severity E11.622 Type 2 diabetes mellitus with other skin ulcer L98.492 Non-prs chronic ulcer of skin of sites w fat layer exposed M86.652 Other chronic osteomyelitis, left thigh E43 Unspecified severe protein-calorie malnutrition G82.20 Paraplegia, unspecified Office Visit 05/05/2018 9:18a [facility] Lorraine I82.412 Acute embolism Assoc,darling Kamara M.D. and thrombosis Hospitalists of left femoral vein L98.492 Non-prs chronic ulcer of skin of sites w fat layer exposed E11.622 Type 2 diabetes mellitus with other skin ulcer M86.652 Other chronic osteomyelitis, left thigh E43 Unspecified severe protein-calorie malnutrition G82.20 Paraplegia, unspecified N39.0 Urinary tract infection, site not specified B96.1 Klebsiella pneumoniae as the cause of diseases classd elswhr [facility]30[facility]2018 [facility]icidal Assoc,dalring Kamara M.D. ideations Hospitalists I82.412 Acute embolism and thrombosis of left femoral vein E43 Unspecified severe protein-calorie malnutrition G82.20 Paraplegia, unspecified Office Visit 04/28/2018 9:17a [facility] [address], E11.622 Type 2 Assocdarling M.D. diabetes Hospitalists mellitus with other skin ulcer L98.499 Non-pressure chronic ulcer of skin of sites w unsp severity G82.20 Paraplegia, unspecified B96.1 Klebsiella pneumoniae as the cause of diseases classd elsr N39.0 Urinary tract infection, site not specified E43 Unspecified severe protein-calorie malnutrition Office Visit 04/24/2018 [facility] Shemar Harp M86.652 Other chronic 10:30a For Bettina Huggins M.D. 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 ideations Hospitalists G82.20 Paraplegia, unspecified L98.499 Non-pressure chronic ulcer of skin of sites w unsp severity L97.429 Non-prs chronic ulcer of left heel and midfoot w unsp severt E11.622 Type 2 diabetes mellitus with other skin ulcer M86.652 Other chronic osteomyelitis, left thigh E43 Unspecified severe protein-calorie malnutrition R00.0 Tachycardia, unspecified D64.9 Anemia, unspecified I95.9 Hypotension, unspecified N31.9 Neuromuscular dysfunction of bladder, unspecified Office Visit 04/17/2018 [facility] T14.91xA Suicide 2:39p Assdarling white M.D. 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 attempt, Hospitalists initial encounter L89.229 Pressure ulcer of left hip, unspecified stage E43 Unspecified severe protein-calorie malnutrition G82.20 Paraplegia, unspecified I10 Essential (primary) hypertension E78.5 Hyperlipidemia, unspecified Office Visit 04/15/2018 [facility] John Valiente T14.91xA Suicide 2:39p Assocdarling MD attempt, Hospitalists initial encounter L89.229 Pressure ulcer of left hip, unspecified stage E43 Unspecified severe protein-calorie malnutrition G82.20 Paraplegia, unspecified M62.830 Muscle spasm of back I10 Essential (primary) hypertension Office Visit 04/14/2018 [facility] John Valiente T14.xA Suicide 2:38p darling Rico MD attempt, Hospitalists initial encounter L89.229 Pressure ulcer of left hip, unspecified stage M62.830 Muscle spasm of back E43 Unspecified severe protein-calorie malnutrition G82.20 Paraplegia, unspecified I10 Essential (primary) hypertension Office Visit 04/13/2018 [facility] Valiente T14.xA Suicide 2:38p darling Rico MD attempt, Hospitalists initial encounter L89.229 Pressure ulcer of left hip, unspecified stage M62.830 Muscle spasm of back E43 Unspecified severe protein-calorie malnutrition G82.20 Paraplegia, unspecified I10 Essential (primary) hypertension Office Visit 04/12/2018 [facility] Valiente T14xA Suicide 2:37p darling Rico MD attempt, Hospitalists initial encounter L89.229 Pressure ulcer of left hip, unspecified stage E43 Unspecified severe protein-calorie malnutrition G82.20 Paraplegia, unspecified I10 Essential (primary) hypertension Office Visit 04/11/2018 [facility] Valiente T14.xA Suicide 2:37p darling Rico MD attempt, Hospitalists initial encounter E43 Unspecified severe protein-calorie malnutrition L89.229 Pressure ulcer of left hip, unspecified stage G82.20 Paraplegia, unspecified I10 Essential (primary) hypertension Office Visit 04/10/2018 [facility] Shaunna T14.xA Suicide 2:36p Assoc,darling Henry, attempt, Hospitalists SHUTTLE FINAL INSPECTOR initial encounter F31.30 Bipolar disord, crnt epsd depress, mild or mod severt, unsp L89.229 Pressure ulcer of left hip, unspecified stage G82.20 Paraplegia, unspecified E43 Unspecified severe protein-calorie malnutrition Office Visit 04/05[facility] R00.0 Tachycardia, 2:36p Assoc,darling Rogers, SHUTTLE FINAL INSPECTOR unspecified Hospitalists T14xA Suicide attempt, initial encounter L89.229 Pressure ulcer of left hip, unspecified stage I10 Essential (primary) hypertension Office Visit 04/04/2018 [facility] Suicide 2:36p Assoc,pc Rogers, SHUTTLE FINAL INSPECTOR attempt, Hospitalists initial encounter L89.229 Pressure ulcer of left hip, unspecified stage I10 Essential (primary) hypertension G82.20 Paraplegia, unspecified 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 Office Visit 04/03/2018 [facility] Suicide 2:35p Assoc,pc Rogers, SHUTTLE FINAL INSPECTOR attempt, Hospitalists initial encounter L89.229 Pressure ulcer of left hip, unspecified stage I10 Essential (primary) hypertension G82.20 Paraplegia, unspecified 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 collapse Hospitalists I95.9 Hypotension, unspecified L89.229 Pressure ulcer of left hip, unspecified stage E78.5 Hyperlipidemia, unspecified G82.20 Paraplegia, unspecified Office Visit 03/30/2018 2:34p [facility] Collins Angel, xA Suicide Assoc,pc N.P. 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
[2018-11-21 11:33] LABS: INR 1.41 (0.77-1.02)
[2018-11-21 11:37] LABS: ABS Basophils 0.1 10^3/ul (0-0.2); ABS Eosinophils 0.3 10^3/ul (0-0.6); ABS Lymphocytes 1.5 10^3/ul (1.0-4.8); ABS Monocytes 0.6 10^3/ul (0-0.8); ABS Neutrophils 11.6 10^3/ul (1.5-7.7); ABS Nucleated RBC 0 10^3/ul; Eosinophil % 2.4 %; Hematocrit 29 % (36-46); Lymphocyte % 10.7 %; Mean Corpuscular HGB Conc 31 g/dL (31-36); Mean Corpuscular Hemoglobin 26 pg (27-31); Mean Corpuscular Volume 82 fL (80-94); Nucleated Red Blood Cells % 0; Platelet Count 469 10^3/uL (150-450); Red Blood Count 3.51 10^6 /uL (4.18-5.48); Red Cell Distribution Width 17 % (10.5-15); White Blood Count 14.2 10^3/uL (3.5-10.8)
[2018-11-21 11:41] LABS: Albumin 2.6 g/dL (3.2-5.2); Calcium 8.9 mg/dL (8.6-10.3); Potassium 4.7 mmol/L (3.5-5.0); Total Bilirubin 0.3 mg/dL (0.2-1.0)
[2018-11-21 11:47] LABS: Albumin/Globulin Ratio 0.6 (1-3); C Reactive Protein 137.93 mg/L (<8.01); EGFR African American 131.8 (>60); EGFR Non-African American 108.9 (>60); Globulin 4.6 g/dL (2-4); Total Protein 7.2 g/dL (6.4-8.9); Troponin I 0.23 ng/mL (<0.04)
[2018-11-21 12:07] LABS: Urine Appearance Turbid; Urine Bacteria Absent (Absent); Urine Bilirubin Negative (Negative); Urine Blood Negative (Negative); Urine Color Yellow; Urine Glucose Negative (Negative); Urine Ketones Negative (Negative); Urine Nitrite Negative (Negative); Urine Protein 3+(>=500 mg/dL) (Negative); Urine Red Blood Cell Absent (Absent); Urine Specific Gravity 1.022 (1.010-1.030); Urine Urobilinogen Negative (Negative); Urine White Blood Cell Trace(0-5/hpf) (Absent)
[2018-11-21] MEDS: Morphine 4 MG/ML VIAL (1 ml) 4 MG/ML VIAL IV PRN ×2 (12:24→20:06)
[2018-11-21] MEDS ORDERED: NS 0.9% 1000 ML** 1,000 ML IV SCH ×2 (13:45→13:51)
[2018-11-21] MEDS ORDERED: Albuterol HFA INHALER* 8 gm MDI INH PRN (13:51)
[2018-11-21] MEDS ORDERED: Vancomycin per Pharmacy* NOTE FOLLOW UP PRN (14:17)
[2018-11-21] MEDS ORDERED: Dextrose 50% Syringe 50 ML* 25 GM/50 ML SYRINGE IV PUSH PRN (14:21)
[2018-11-21] MEDS ORDERED: Perflutren Lipid Microsphere* 3 ML VIAL ONE (16:11)
--- NOTE | 2018-11-21 16:11 | HP ---
Amended report to enter cosigning physician. CC: [facility]* HISTORY AND PHYSICAL: DATE OF ADMISSION: 11/21/18 PRIMARY CARE PROVIDER: [facility]. OTHER PROVIDERS: Dr. Shemar Young, Infectious Disease. ATTENDING PHYSICIAN: Dr. Lorraine Douglas* (dictated by Flor Aleman NP). CHIEF COMPLAINT: MRSA infection in left hip. HISTORY OF PRESENT ILLNESS: Mr. Barth is a 53-year-old male, who resides at [facility] and has a medical history of paraplegia, chronic pain, history of DVT, pressure ulcers of the skin, dyslipidemia, neurogenic bladder, GERD, diabetes without complications, bipolar disorder, hypertension, who presented to the emergency department today due to concerns for MRSA infection in his left hip. The patient had an aspiration of his left hip 2 days ago and the results revealed MRSA, therefore [facility] was contacted and patient was transferred to the emergency room via [facility] for further evaluation and treatment. While in the emergency department, patient had CBC, which revealed leukocytosis at 14.2. In addition, he has an elevated lactic acid at 3.5 and elevated troponin at 0.23. Patient also has an elevated CRP at 137.93. While in the emergency department, it was also noted that the patient meets criteria for sepsis. Patient has an elevated heart rate approx 130 to 140, patient has leukocytosis, the patient is tachypneic and the patient has known source. Sepsis bundle was initiated and patient received a dose of vancomycin and 2 L bolus of normal saline. The hospitalist was consulted for admission. PAST MEDICAL HISTORY: 1. Osteomyelitis of the left hip. 2. Paraplegia. 3. Chronic pain. 4. History of DVT. 5. Vitamin B12 deficiency. 6. Pressure skin ulcers. 7. Dyslipidemia. 8. Vitamin D deficiency. 9. Neurogenic bladder. 10. GERD. 11. Type 2 diabetes without complication. 12. History of pancreatitis. 13. Bipolar disorder. 14. Hypertension. PAST SURGICAL HISTORY: 1. Status post posterior cervical fusion. 2. Transurethral resection of prostate. 3. Status post suprapubic urinary catheter. 4. Left hip surgery for abscess. HOME MEDICATIONS: 1. Morphine concentrate 0.25 mg p.o. q.2 hours p.r.n. 2. Zanaflex 4 mg p.o. q.i.d. p.r.n. 3. Eliquis 5 mg p.o. b.i.d. 4. Albuterol 1 puff inhalation q.4 hours p.r.n. 5. Metformin 500 mg p.o. b.i.d. a.c. 6. Lyrica 25 mg p.o. t.i.d. 7. Zyprexa 15 mg p.o. at bedtime. 8. MS Contin 15 mg p.o. q.12 hours. 9. Sennoside/docusate sodium 2 tablets p.o. at bedtime. 10. Melatonin 3 mg p.o. at bedtime. 11. Magnesium oxide 400 mg p.o. daily. 12. Pepcid 20 mg p.o. b.i.d. 13. Doxycycline 100 mg p.o. b.i.d. 14. Metoprolol succinate XL 50 mg p.o. at bedtime. 15. Dantrium 25 mg p.o. t.i.d. 16. Vitamin B12, 1000 mcg p.o. daily. 17. Vitamin D 1000 units p.o. daily. 18. Atorvastatin 10 mg p.o. daily. 19. Ascorbic acid 1000 mg p.o. daily. ALLERGIES: OXYCODONE. FAMILY HISTORY: Family history was obtained from previous records as patient is currently confused. Per records, patient was adopted and has unknown family history. SOCIAL HISTORY: Once again, this is obtained from records as patient is confused. No smoking history reported. No alcohol abuse history reported. No drug use history reported. The patient resides at [facility]. Patient does not have a surrogate decision maker or healthcare proxy documented. We will readjust this when patient's mentation has improved. REVIEW OF SYSTEMS: Review of systems were limited as patient is confused. Patient does report bilateral hip pain. Patient did deny shortness of breath, chest pain, palpitations, nausea, vomiting, diarrhea. PHYSICAL EXAMINATION GENERAL: Mr. Barth is a 53-year-old male, who is lying on a stretcher in the emergency department. He appears to be in no acute distress. He appears stated age. He is noted to be tachy on the monitor and he is hallucinating. VITAL SIGNS: Temperature 97.7, HR 43, RR 20, O2 saturation 100% on room air, BP 105/76. HEENT: PERRLA. EOMs are intact. Oral mucosa is moist without lesion. Posterior pharynx is clear. NECK: Full range of motion. No lymphadenopathy. RESPIRATORY: Symmetrical chest expansion. No accessory muscle use. Lungs are clear to auscultation. CV: Regular rhythm. Tachycardic rate. S1 and S2 present. No murmurs, rubs, or gallops. ABDOMEN: Soft and nontender to palpation. Bowel sounds are normoactive. Patient has suprapubic catheter that has some yellowish drainage at insertion site. EXTREMITIES: Patient has no edema. Patient has wound VAC to the left lateral harrison. Patient has no clubbing or cyanosis. Pedal pulses are 2+ bilaterally. MUSCULOSKELETAL: Limited range of motion due to pain. Warmth noted to the left hip. NEUROLOGIC: The patient is awake and alert and oriented to self and place. Patient is hallucinating as he believes there was a child sitting in the room and there was not. Motor is 5/5 in the upper extremities. SKIN: As mentioned above, the patient has a wound VAC to the left lateral harrison. Patient has warmth and slight redness to the left hip. Patient has open wound to right buttocks that is not able to stage. DIAGNOSTIC STUDIES/LABORATORY DATA: WBC 14.2, hemoglobin 9, hematocrit 29, platelets 469. INR is 1.41. Sodium 131, potassium 4.7, chloride 98, carbon dioxide 23, BUN 27, creatinine 0.75, glucose 234, lactic acid 3.5, AST 24, ALT 19, alk phos is 92. Troponin is 0.23. C-reactive protein is 137.93. EKG is pending. ASSESSMENT AND PLAN: Mr. Barth is a 53-year-old male with past medical history significant for osteomyelitis of the left hip, paraplegia, chronic pain , deep venous thrombosis, vitamin B deficiency, pressure ulcers, dyslipidemia, vitamin D deficiency, neurogenic bladder, gastroesophageal reflux disease, type 2 diabetes, pancreatitis, bipolar disorder, hypertension, who presents to the emergency department today due to a finding of MRSA in the left hip on aspiration. Patient will be placed in the ICU. 1. MRSA infection: As mentioned above, the patient had an aspiration of the left hip 2 days ago and cultures revealed MRSA. Dr. Young will be consulted and is aware of this patient. The patient was given vancomycin in the emergency room and we will continue this. Blood cultures have been ordered. Repeat lactic acid has been ordered. Patient will continue to receive fluid. Ortho consult will be consulted given history of chronic osteo and new finding of MRSA in left hip. 2. Sepsis: Patient met sepsis criteria as of 11 o'clock today due to leukocytosis, tachycardia, tachypnea and known source. Patient received a 2 L of bolus in the emergency room. I have ordered an additional bolus to meet and exceed the 30 mg/kg recommendation. Patient will start on vancomycin in the emergency room. I will continue vancomycin per pharmacy protocol. Lactic acid was elevated at 3.5. A repeat lactic acid has been ordered. We will monitor closely in ICU. 3. Tachycardia: Patient is noted to be tachycardic at 140. EKG obtained and showed sinus tachycardia with no ST changes noted. We suspect that tachycardia is secondary to sepsis. Patient will continue to receive fluid. Patient will be continued on his home medications of metoprolol. Patient will be monitored on telemetry in the ICU. 4. Elevated troponin: As mentioned above, patient's troponin was 0.23. I suspect this is secondary to demand ischemia given tachycardia and sepsis. I will repeat patient's troponin. EKG has been ordered as mentioned above. Repeat EKG also ordered. 5. History of osteomyelitis of left hip: Patient has been following with Infectious Disease due to osteomyelitis of the left hip. He also has been on doxycycline p.o. We will stop doxycycline while the patient is on vancomycin. We will continue monitoring his CMP and CRP. 6. Paraplegia: The patient will receive supportive care. We will continue to use Spenco boots. We will turn and position patient appropriately. 7. Pain management: I will continue patient's MS Contin. I will order extra pain medications if needed on a p.r.n. basis. 8. History of deep venous thrombosis: The patient is on long-term anticoagulation of apixaban. We will continue this. 9. Pressure ulcer of skin: Patient has a wound VAC to the left lateral harrison and a open unstageable wound to right buttocks. He has been [facility]. I have ordered a consult with General Surgery and Dr Strong was made aware of patient. 10. Dyslipidemia: We will continue patient on atorvastatin. 11. Neurogenic bladder: Patient has a suprapubic catheter and a Connor bag attached. We will provide catheter care and change patient's Connor bag. Urology was consulted and recommended that we inquire when suprapubic catheter was last changed. If needs to be changed Dr Zhao will be in the OR on Sunday and will be willing to change it. 12. Gastroesophageal reflux disease: We will continue famotidine. 13. Type 2 diabetes: Patient is on metformin 500 mg twice a day. I have held this given patient's sepsis and acute illness. I will place him on a sliding scale insulin and fingerstick a.c. and h.s. 14. History of pancreatitis: The patient has a history of pancreatitis, but currently is showing no signs of such. 15. Bipolar disorder: We will continue patient's home medications as same and provide supportive care. 16. Hypertension: The patient has a history of hypertension and is managed with metoprolol 50 mg p.o. at bedtime. His systolic is currently in the 100s. I will continue this due to the risk of rebound tachycardia and current tachycardic state. If patient's blood pressure goes below 100, I will reduce this and possibly stop if needed. 17. FEN: Patient will be placed on a regular diet. 18. Code status: The patient is a full code. 19. DVT prophylaxis: Based on the risk assessment, the patient is at highest risk. I will continue patient's apixaban. 20. Septic Encephalopathy: Patient was mildly confused on assessment as he was seeing a child in the room that was not there. Although he is oriented to self and place. I suspect his is secondary to septic encephalopathy. Cont IVF and antibiotics. Provider support care and monitor closely. TIME SPENT: Approximately 70 minutes was spent on this admission, greater than half the time was spent with the patient and caregiver, obtaining my history and performing my physical exam, and reviewing my plan of care. This case has been reviewed with my attending, Dr. Douglas, who is in agreement with my plan of care. Reviewed by FLOR ALEMAN NP 11/21/18 @ [id number] [id number]/[facility] #: [id number] HUGO
--- NOTE | 2018-11-21 17:06 | ECHO ---
Patient: BAYLEE BROOKS [facility] Rec#: [id number] : 1965 Date: 11/21/2018 Age: 53y Height: 188 cm / 74.0 in Weight: 83 kg / 182.9 lbs Sex: M BSA: 2.09 Room#: ICU 5 Admit Date#: 11/21/2018 Type: Inpatient Referring: FLOR ALEMAN E Reading: Sergio Choudhury DO Candy Wrapping Machine Operator: Scarlett ChapinRDCS,RDMS Transthoracic Echocardiogram Indication: SEPSIS BP: 95/68 HR: 142 Rhythm: Tachycardia Findings History: CVA, HTN, DM, thoracic AO aneurysm Technical Comments: The study quality is fair. The study is technically limited due to poor acoustic windows. Left Ventricle: The left ventricular chamber size is normal. Mild concentric left ventricular hypertrophy is observed. Global left ventricular wall motion and contractility are within normal limits. There is normal left ventricular systolic function. The estimated ejection fraction is 60-65%. There is no consistent Doppler evidence of clinically significant diastolic dysfunction. Left Atrium: The left atrial chamber size is normal. Right Ventricle: The right ventricular chamber size and systolic function are within normal limits. Right Atrium: The right atrial cavity size is normal. Aortic Valve: The aortic valve is trileaflet. The aortic valve leaflets are mildly thickened. Systolic excursion of the aortic valve is normal. There is a trace of aortic regurgitation. There is no evidence of aortic stenosis. Mitral Valve: The mitral valve leaflets appear normal. There is no evidence of mitral regurgitation. There is no evidence of mitral stenosis. Tricuspid Valve: The tricuspid valve leaflets are normal. There is trace tricuspid regurgitation. Unable to estimate the right ventricular systolic pressure. Pulmonic Valve: The pulmonic valve structure is not well visualized. There is no evidence of pulmonic valve thickening. There is no evidence of pulmonic regurgitation. Pericardium: There is no significant pericardial effusion. Aorta: There is mild dilatation of the ascending aorta. There is mild dilatation of the aortic root. Pulmonary Artery: The main pulmonary artery is not well visualized. Venous: The inferior vena cava is not visualized. Contrast: Definity was used to optimize study. A total of 2 ml was used. Conclusions The left ventricular chamber size is normal. Mild concentric left ventricular hypertrophy is observed. Global left ventricular wall motion and contractility are within normal limits. There is normal left ventricular systolic function. The estimated ejection fraction is 60-65%. Patient is tachycardic at time of examination The left atrial chamber size is normal. The right ventricular chamber size and systolic function are within normal limits. There are no obvious significant valvular abnormalities with fair quality valve visualization There is mild to moderate dilatation of the aortic root.at 4.2 cm Compared to prior study from 03/2018, no clinically significant changes noted Measurements Name Value Normal Range RVIDd (AP) 2D 2.3 cm (0.9 - 2.6) RVDdMajor (2D) 2.6 cm (2.2 - 4.4) RAd ISD 4CH 5.4 cm (3.4 - 4.9) RA (A4C)W 3.8 cm (2.9 - 4.6) IVSd (2D) 1.2 cm (0.6 - 1) LVPWd (2D) 1.1 cm (0.6 - 1) LVIDd (2D) 4.5 cm (3.6 - 5.4) LVIDs (2D) 2.5 cm - LV FS (2D) 43 % (25 - 45) Aortic Annulus 2.1 cm (1.4 - 2.6) Ao root diameter (2D) 4.2 cm (2.1 - 3.5) Ascending Ao 3.6 cm (2.1 - 3.4) Aortic arch 3.5 cm (1.8 - 3.4) LA dimension (AP) 2D 3.2 cm (2.3 - 3.8) LAd ISD 4CH 5.3 cm (2.9 - 5.3) LA ISD 4CH W 4.3 cm (2.5 - 4.5) Name Value Normal Range LA ESV BP (A/L) index 24 ml/m2 - Name Value Normal Range MV E-wave Vmax 0.6 m/sec - MV deceleration time 137 msec - MV A-wave Vmax 0.7 m/sec - MV E:A ratio 0.8 ratio - LV septal e' Vmax 0.06 m/sec - LV lateral e' Vmax 0.11 m/sec - LV E:e' septal ratio 10 ratio - LV E:e' lateral ratio 5 ratio - Name Value Normal Range AV Vmax 1.2 m/sec - AV VTI 16 cm - AV peak gradient 6 mmHg - AV mean gradient 3 mmHg - LVOT Vmax 1 m/sec - LVOT VTI 16 cm - LVOT peak gradient 4 mmHg - LVOT mean gradient 2 mmHg - ZULAY Vmax 0.7 m/sec - Name Value Normal Range RAP 8 mmHg - Name Value Normal Range PV Vmax 0.9 m/sec - PV peak gradient 3.2 mmHg -
--- NOTE | 2018-11-21 18:28 | PN ---
Sepsis Event Evaluation Date of Evaluation: 11/21/18 Time of Evaluation: 18:28 Current Stage of Sepsis: Severe Sepsis Vital Signs - Last 12 Hours: Vital Signs - 12 hr Temp Pulse Resp BP Pulse Ox 11/21/18 16:00 130 17 91/51 100 11/21/18 15:39 134 17 94/58 82 11/21/18 15:30 137 22 87/64 84 11/21/18 15:21 133 21 85 11/21/18 14:54 97.7 F 137 18 95/68 97 11/21/18 14:45 98.9 F 134 22 128/56 98 11/21/18 14:27 25 95/68 11/21/18 14:22 135 22 128/56 96 11/21/18 14:00 21 11/21/18 13:29 150 19 107/78 96 11/21/18 13:00 143 20 100 11/21/18 12:24 22 11/21/18 12:00 20 11/21/18 11:51 139 105/76 11/21/18 11:47 138 24 105/76 98 11/21/18 11:07 21 11/21/18 10:41 97 11/21/18 10:32 97.7 F 132 16 121/94 100 11/21/18 09:35 24 124/90 Lactic Acid: 11/21/18 11/21/18 11:18 16:47 Lactic Acid 3.5 H* 2.1 H* - Cardiopulmonary Exam Capillary Refill: Immediate Respiratory: Symmetrical Chest Expansion and Respiratory Effort, Clear to Auscultation Cardiovascular: RRR - Normal S1 and S2 - Peripheral Pulse Exam Radial Pulses: Bilateral Normal Pedal Pulses: Bilateral Normal Posterior Tibial Pulse: Bilateral Normal Femoral Pulses: Bilateral Normal Popliteal Pulses: Bilateral Normal - Skin Exam Skin Exam: Normal Turgor - Jamar Coma Scale Best Eye Response: 4 - Spontaneous Best Motor Response: 6 - Obeys Commands Best Verbal Response: 5 - Oriented Coma Scale Total: 15 Assess/Plan/Problems-Billing Assessment: Case reviewed and d/w Cheyanne Rios INJECTION MOLDING PROCESS TECHNICIAN. Mr Barth is a 53yo M with PMH of paraplegia, left ischial pressure ulcer s/p flap complicated by infection and left hip osteomyelitis requiring femoral head removal, DVT on Eliquis, pressure ulcers, neurogenic bladder with suprapubic catheter, type 2 DM, HTN, bipolar disorder, now residing at [facility], referred to ED due to left hip fluid aspirate growing MRSA. Case d/w Dr Huggins and Dr Menendez - patient has severe sepsis and is admitted to ICU. Will continue fluid resuscitation and Vancomycin. As per admitting INJECTION MOLDING PROCESS TECHNICIAN, patient's last Eliquis dose was 11/21/18 AM - plan for OR 11/23/18.
[2018-11-21] MEDS: Pregabalin CAP(*) 25 MG PO SCH ×2 (18:32→21:53)
[2018-11-21] MEDS: Insulin LISPRO* 1 UNITS UNIT SUBCUT SCH ×2 (18:32→21:51)
[2018-11-21] MEDS: DANTROLENE 25 MG PO SCH ×2 (18:32→21:51)
[2018-11-21] MEDS: Vancomycin(*) 1,000 MG in NS 0.9% 250 ML* 250 ML IVPB SCH (20:01)
--- NOTE | 2018-11-21 20:40 | CONS ---
ORTHOPEDIC CONSULTATION NOTE: DATE OF CONSULT: 11/21/18 Thank you for this orthopedic consultation. CHIEF COMPLAINT: Left hip pain. HISTORY OF PRESENT ILLNESS: Mr. Barth is a 53-year-old paraplegic male who is a resident of [facility]. He has multiple chronic venous stasis pressure ulcers of his right sacrum, legs, and heels. He has multiple medical comorbidities. In the past, he had infection in the left hip requiring Girdlestone procedure for osteomyelitis. He had increased pain in the left hip and 2 days ago aspiration of the left hip was performed. Culture results are showing MRSA and he was brought to [facility] for admission. The patient reports 10/10 pain in the left hip. Any movement of the hip increases his pain. Per the hospitalist group, the patient is septic, had elevated lactic acid, a bump in his troponins, leukocytosis, as well as elevated CRP and tachycardia. He has been given vancomycin and normal saline bolus. He is in the ICU for care. PAST MEDICAL HISTORY: Osteomyelitis left hip, paraplegia, chronic pain syndrome , history of DVT, multiple pressure skin ulcers, right sacral ulcer, vitamin B12 deficiency, dyslipidemia, vitamin D deficiency, neurogenic bladder, GERD, type 2 diabetes, pancreatitis, bipolar disorder, hypertension. PAST SURGICAL HISTORY: Cervical fusion, transurethral resection of the prostate , status post suprapubic urinary catheter placement, left hip Girdlestone procedure for chronic osteomyelitis. HOME MEDICATIONS: Please see home medication list. ALLERGIES: OXYCODONE. FAMILY HISTORY: The patient was adopted. This is unknown. SOCIAL HISTORY: The patient lives at [facility]. No alcohol, tobacco, or recreational drugs. He is in a wheelchair at all times, cannot ambulate. No motor strength of the lower extremities. He has significant flexion contractures of his knees and hips. REVIEW OF SYSTEMS: Fourteen systems reviewed with the patient today. Positive for left hip pain. Positive for right sacral pain. Positive for bilateral heel pain. The patient reports positive fevers. He denies chills, shortness of breath, chest pain. Otherwise, he reports review of systems is negative or not relevant. PHYSICAL EXAM: The patient's vitals show temperature 97.7, pulse 123, blood pressure 102/63. General: The patient is a thin male, in no apparent distress , alert and oriented x3, pleasant mood and appropriate affect. Bilateral Upper Extremities: The patient has no open wounds. 2+ palpable DP pulses. Right lower extremity: The patient has a heel ulcer with a wound VAC on the right heel. He is flexed and contracted at the hip and knee. Knee is contracted over 100 degrees and I cannot extend much. His right sacral region has a deep ulcer with at least 5 cm diameter with foul odor. Left lower extremity shows lateral leg open wound with a wound VAC and a heel ulcer. He has no open wounds around the hip. He has a healed anterior incision at the hip. Motion of the hip causes pain. Distally bilaterally, he has 2+ palpable DP pulses. DIAGNOSTIC STUDIES/LAB DATA: Radiographs: CT scan is reviewed. There are multiple abscesses around the pelvis. There is a fluid collection around the ischial tuberosity and hip joint on the left hip. Labs: The patient has on 11/19/18 left hip joint, which is MRSA positive. Recent laboratory values show white blood cells 14.2, hematocrit 29, platelets 469. INR 1.41. Troponins 0.23, down to 0.2. Lactic acid 3.5, down to 2.1. Sodium 131, potassium 4.7, BUN and creatinine 27 and 0.75. CRP 137. Urine is positive for leukocyte esterase. ASSESSMENT AND PLAN: Mr. Barth is a 53-year-old paraplegic male with multiple medical comorbidities and multiple open wounds and areas of infection. The patient is currently septic in the ICU. He unfortunately had Eliquis dose this morning. I am consulted for the left hip methicillin-resistant Staphylococcus aureus infection. I discussed with the patient that I can open up his hip joint and thoroughly debride it and wash it out. He understands that I do not believe we will definitively clear this infection. Our goal will be to immensely decrease the burden of infection and allow IV antibiotic suppression. He would like to proceed. The earliest I feel comfortable doing this because of the Eliquis is in the early a.m. of 11/23/18. We will schedule him for this. Medicine will continue to optimize him and he will have IV antibiotics. The sacral ulcer, heel ulcers, and leg ulcers are being cared for by the wound clinic and General Surgery. They certainly deserve continued aggressive attention. The patient and I discussed the risks and benefits of surgery. He would like to proceed. He understands the risks include, but are not limited to bleeding, infection, damage to nearby structures, continued pain, need for further surgery , continued infection, stroke, heart attack, blood clot, and . I feel this patient is high risk for perioperative complications due to his multiple areas of infection. He understands this. [id number]/[facility] #: [id number] HUGO
[2018-11-21] MEDS ORDERED: Apixaban* 5 MG TAB PO SCH (21:00)
[2018-11-21] MEDS: Morphine TAB Extended Release (*) 15 MG TAB.ER PO SCH (21:40)
[2018-11-21] MEDS: Famotidine TAB* 20 MG PO SCH (21:51)
[2018-11-21] MEDS: Melatonin 3 MG TAB PO SCH (21:52)
[2018-11-21] MEDS: OLANzapine TAB* 10 MG PO SCH (21:52)
[2018-11-21] MEDS: Senna TAB PO SCH (21:53)
[2018-11-21] MEDS: Metoprolol Succinate XL TAB* 50 MG PO SCH (21:54)
[2018-11-21] MEDS: Docusate CAP* 100 MG PO SCH (21:54)
[2018-11-21] MEDS: NS 0.9% 1000 ML** 1,000 ML IV SCH (22:04)
[2018-11-22] MEDS: Acetaminophen TAB* 325 MG PO PRN ×2 (02:54→15:19)
[2018-11-22] MEDS: Vancomycin(*) 1,000 MG in NS 0.9% 250 ML* 250 ML IVPB SCH ×3 (02:54→19:52)
[2018-11-22] MEDS ORDERED: NS 0.9% 500 ML* 500 ML IV ONE ×2 (03:27→05:46)
[2018-11-22 06:09] LABS: ABS Basophils 0.1 10^3/ul (0-0.2); ABS Eosinophils 0.3 10^3/ul (0-0.6); ABS Lymphocytes 1.3 10^3/ul (1.0-4.8); ABS Monocytes 0.5 10^3/ul (0-0.8); ABS Neutrophils 8.3 10^3/ul (1.5-7.7); ABS Nucleated RBC 0 10^3/ul; Eosinophil % 2.8 %; Hematocrit 20 % (36-46); Hemoglobin 6.5 g/dL (14.0-18.0); Lymphocyte % 12.1 %; Mean Corpuscular HGB Conc 33 g/dL (31-36); Mean Corpuscular Hemoglobin 26 pg (27-31); Mean Corpuscular Volume 80 fL (80-94); Mean Platelet Volume 7.6 fL (7.4-10.4); Nucleated Red Blood Cells % 0; Platelet Count 358 10^3/uL (150-450); Red Blood Count 2.46 10^6 /uL (4.18-5.48); Red Cell Distribution Width 17 % (10.5-15); White Blood Count 10.4 10^3/uL (3.5-10.8)
[2018-11-22 06:26] LABS: Albumin 1.8 g/dL (3.2-5.2); Albumin/Globulin Ratio 0.5 (1-3); BUN/Creatinine Ratio 31.3 (8-20); Calcium 7.9 mg/dL (8.6-10.3); EGFR African American 158.3 (>60); EGFR Non-African American 130.8 (>60); Globulin 3.4 g/dL (2-4); Indirect Bilirubin 0.2 mg/dL (0.3-1.0); Potassium 3.7 mmol/L (3.5-5.0); Total Bilirubin 0.3 mg/dL (0.2-1.0); Total Protein 5.2 g/dL (6.4-8.9)
[2018-11-22] MEDS: Insulin LISPRO* 1 UNITS UNIT SUBCUT SCH ×4 (08:44→21:59)
[2018-11-22] MEDS: Pregabalin CAP(*) 25 MG PO SCH ×3 (10:02→22:02)
[2018-11-22] MEDS: Atorvastatin* 10 MG TAB PO SCH (10:02)
[2018-11-22] MEDS: Famotidine TAB* 20 MG PO SCH ×2 (10:02→22:01)
[2018-11-22] MEDS: Morphine TAB Extended Release (*) 15 MG TAB.ER PO SCH ×2 (10:03→22:21)
[2018-11-22] MEDS: Magnesium Oxide TAB* 400 MG PO SCH (10:03)
[2018-11-22] MEDS: DANTROLENE 25 MG PO SCH ×3 (11:15→22:00)
[2018-11-22] MEDS ORDERED: Vancomycin Trough Check NOTE FOLLOW UP ONE (11:30)
[2018-11-22] MEDS: Morphine 4 MG/ML VIAL (1 ml) 4 MG/ML VIAL IV PRN ×4 (11:38→19:51)
[2018-11-22 11:39] LABS: Hematocrit 25 % (36-46); Hemoglobin 7.8 g/dL (14.0-18.0)
[2018-11-22] MEDS: NS 0.9% 1000 ML** 1,000 ML IV SCH ×2 (12:39→22:18)
--- NOTE | 2018-11-22 13:23 | PN ---
Progress Note - Progress Note Date of Service: 11/22/18 SOAP: Subjective: []Patient being seen by Dr. Johnson at bedside for evaluation of sacral and heel ulcers. The patient is alert and oriented, pain in hip is fairly well managed. He understands he is scheduled for open I&D 11/23/[address] Menendez 11/21. Dr. Johnson is planning bedside debridement leg ulcer today. Objective: [] Vital Signs Temp 98.6 F 11/22/18 12:00 Pulse 150 11/22/18 13:01 Resp 22 11/22/18 13:18 BP 119/87 11/22/18 13:01 Pulse Ox 72 11/22/18 13:01 Intake & Output 11/21/18 11/22/18 11/22/18 18:59 06:59 18:59 Intake Total 400 4997 120 Output Total 350 710 594 Balance 50 4287 -474 Weight 201 lb 0.985 oz 196 lb 6.91 oz Intake: IV Fluids 3778 NS (0.9%) 3243 Vanco 535 IVPB 769 NS (0.9%) 769 Oral 400 450 120 Output: Connor 350 710 594 Laboratory Results - last 24 hr 11/21/18 11/21/18 11/21/18 16:47 16:47 18:07 WBC RBC Hgb Hct MCV MCH MCHC RDW Plt Count MPV Neut % (Auto) Lymph % (Auto) [place] % (Auto) Eos % (Auto) Baso % (Auto) Absolute Neuts (auto) Absolute Lymphs (auto) Absolute Monos (auto) Absolute Eos (auto) Absolute Basos (auto) Absolute Nucleated RBC Nucleated RBC % Sodium Potassium Chloride Carbon Dioxide Anion Gap BUN Creatinine Est GFR ( Amer) Est GFR (Non-Af Amer) BUN/Creatinine Ratio Glucose POC Glucose (mg/dL) 133 H Lactic Acid 2.1 H* Calcium Total Bilirubin Direct Bilirubin Indirect Bilirubin AST ALT Alkaline Phosphatase Troponin I 0.20 H* Total Protein Albumin Globulin Albumin/Globulin Ratio Vancomycin Trough 11/21/18 11/22/18 11/22/18 21:38 00:00 06:00 WBC 10.4 RBC 2.46 L Hgb 6.5 L Hct 20 L MCV 80 MCH 26 L MCHC 33 RDW 17 H Plt Count 358 MPV 7.6 Neut % (Auto) 79.9 Lymph % (Auto) 12.1 [place] % (Auto) 4.7 Eos % (Auto) 2.8 Baso % (Auto) 0.5 Absolute Neuts (auto) 8.3 H Absolute Lymphs (auto) 1.3 Absolute Monos (auto) 0.5 Absolute Eos (auto) 0.3 Absolute Basos (auto) 0.1 Absolute Nucleated RBC 0 Nucleated RBC % 0 Sodium Potassium Chloride Carbon Dioxide Anion Gap BUN Creatinine Est GFR ( Amer) Est GFR (Non-Af Amer) BUN/Creatinine Ratio Glucose POC Glucose (mg/dL) 169 H Lactic Acid 1.2 Calcium Total Bilirubin Direct Bilirubin Indirect Bilirubin AST ALT Alkaline Phosphatase Troponin I Total Protein Albumin Globulin Albumin/Globulin Ratio Vancomycin Trough 11/22/18 11/22/18 11/22/18 06:00 08:32 11:10 WBC RBC Hgb Hct MCV MCH MCHC RDW Plt Count MPV Neut % (Auto) Lymph % (Auto) [place] % (Auto) Eos % (Auto) Baso % (Auto) Absolute Neuts (auto) Absolute Lymphs (auto) Absolute Monos (auto) Absolute Eos (auto) Absolute Basos (auto) Absolute Nucleated RBC Nucleated RBC % Sodium 135 Potassium 3.7 Chloride 106 Carbon Dioxide 24 Anion Gap 5 BUN 20 Creatinine 0.64 L Est GFR ( Amer) 158.3 Est GFR (Non-Af Amer) 130.8 BUN/Creatinine Ratio 31.3 H Glucose 113 H POC Glucose (mg/dL) 129 H Lactic Acid Calcium 7.9 L Total Bilirubin 0.30 Direct Bilirubin 0.10 Indirect Bilirubin 0.2 L AST 16 ALT 14 Alkaline Phosphatase 74 Troponin I Total Protein 5.2 L Albumin 1.8 L Globulin 3.4 Albumin/Globulin Ratio 0.5 L Vancomycin Trough 17.9 11/22/18 11/22/18 11:10 12:24 WBC RBC Hgb 7.8 L Hct 25 L MCV MCH MCHC RDW Plt Count MPV Neut % (Auto) Lymph % (Auto) [place] % (Auto) Eos % (Auto) Baso % (Auto) Absolute Neuts (auto) Absolute Lymphs (auto) Absolute Monos (auto) Absolute Eos (auto) Absolute Basos (auto) Absolute Nucleated RBC Nucleated RBC % Sodium Potassium Chloride Carbon Dioxide Anion Gap BUN Creatinine Est GFR ( Amer) Est GFR (Non-Af Amer) BUN/Creatinine Ratio Glucose POC Glucose (mg/dL) 161 H Lactic Acid Calcium Total Bilirubin Direct Bilirubin Indirect Bilirubin AST ALT Alkaline Phosphatase Troponin I Total Protein Albumin Globulin Albumin/Globulin Ratio Vancomycin Trough Microbiology 11/21/18 11:19 Aerobic Blood Culture - Preliminary Blood Venous No Growth Day 1 Anaerobic Blood Culture - Preliminary No Growth Day 1 Assessment: []Chronic osteomyelitis right hip MRSA Sacral decubitus heel ulcers Plan: []NPO after midnight tonight Open I&D/ washout left hip in am 11/[address] Menendez General surgery/ Dr. Johnson managing additional ulcers IV Ceftriaxone and Vanco per ID
[2018-11-22] MEDS ORDERED: Collagenase 250 MG/GM OINT* 30 GM TOPICAL SCH (14:30)
--- NOTE | 2018-11-22 14:54 | PN ---
Date of Service: 11/22/18 Vital Signs: Temp Pulse Resp BP SpO2 FiO2 98.6 F 120 17 109/65 98 11/22/18 12:00 11/22/18 14:15 11/22/18 14:15 11/22/18 14:15 11/22/18 14:15 Physical Exam: Gen: Alert, pale HEENT: Atraumatic, normocephalic Lungs: Clear bilaterally Cardiac: Tachycardic, thready radial pulse Abdomen: soft, non tender, SP catheter in place Extremities: contracted LE bilat Neuro: paraplegia, A&O x3 Fluid Balance (Past 24 Hours): I= O= Net Intake & Output 11/20/18 11/21/18 11/22/18 11/23/18 06:59 06:59 06:59 06:59 Intake Total 5397 120 Output Total 1060 669 Balance 4337 -549 Weight 196 lb 6.91 oz Intake: IV Fluids 3778 NS (0.9%) 3243 Vanco 535 IVPB 769 NS (0.9%) 769 Oral 850 120 Output: Connor 1060 669 Labs: Laboratory Results - last 24 hr 11/21/18 11/21/18 11/21/18 16:47 16:47 18:07 WBC RBC Hgb Hct MCV MCH MCHC RDW Plt Count MPV Neut % (Auto) Lymph % (Auto) [place] % (Auto) Eos % (Auto) Baso % (Auto) Absolute Neuts (auto) Absolute Lymphs (auto) Absolute Monos (auto) Absolute Eos (auto) Absolute Basos (auto) Absolute Nucleated RBC Nucleated RBC % Sodium Potassium Chloride Carbon Dioxide Anion Gap BUN Creatinine Est GFR ( Amer) Est GFR (Non-Af Amer) BUN/Creatinine Ratio Glucose POC Glucose (mg/dL) 133 H Lactic Acid 2.1 H* Calcium Total Bilirubin Direct Bilirubin Indirect Bilirubin AST ALT Alkaline Phosphatase Troponin I 0.20 H* Total Protein Albumin Globulin Albumin/Globulin Ratio Vancomycin Trough Blood Type Crossmatch 11/21/18 11/22/18 11/22/18 21:38 00:00 06:00 WBC 10.4 RBC 2.46 L Hgb 6.5 L Hct 20 L MCV 80 MCH 26 L MCHC 33 RDW 17 H Plt Count 358 MPV 7.6 Neut % (Auto) 79.9 Lymph % (Auto) 12.1 [place] % (Auto) 4.7 Eos % (Auto) 2.8 Baso % (Auto) 0.5 Absolute Neuts (auto) 8.3 H Absolute Lymphs (auto) 1.3 Absolute Monos (auto) 0.5 Absolute Eos (auto) 0.3 Absolute Basos (auto) 0.1 Absolute Nucleated RBC 0 Nucleated RBC % 0 Sodium Potassium Chloride Carbon Dioxide Anion Gap BUN Creatinine Est GFR ( Amer) Est GFR (Non-Af Amer) BUN/Creatinine Ratio Glucose POC Glucose (mg/dL) 169 H Lactic Acid 1.2 Calcium Total Bilirubin Direct Bilirubin Indirect Bilirubin AST ALT Alkaline Phosphatase Troponin I Total Protein Albumin Globulin Albumin/Globulin Ratio Vancomycin Trough Blood Type Crossmatch 11/22/18 11/22/18 11/22/18 06:00 06:00 08:32 WBC RBC Hgb Hct MCV MCH MCHC RDW Plt Count MPV Neut % (Auto) Lymph % (Auto) [place] % (Auto) Eos % (Auto) Baso % (Auto) Absolute Neuts (auto) Absolute Lymphs (auto) Absolute Monos (auto) Absolute Eos (auto) Absolute Basos (auto) Absolute Nucleated RBC Nucleated RBC % Sodium 135 Potassium 3.7 Chloride 106 Carbon Dioxide 24 Anion Gap 5 BUN 20 Creatinine 0.64 L Est GFR ( Amer) 158.3 Est GFR (Non-Af Amer) 130.8 BUN/Creatinine Ratio 31.3 H Glucose 113 H POC Glucose (mg/dL) 129 H Lactic Acid Calcium 7.9 L Total Bilirubin 0.30 Direct Bilirubin 0.10 Indirect Bilirubin 0.2 L AST 16 ALT 14 Alkaline Phosphatase 74 Troponin I Total Protein 5.2 L Albumin 1.8 L Globulin 3.4 Albumin/Globulin Ratio 0.5 L Vancomycin Trough Blood Type B Positive Crossmatch See Detail 11/22/18 11/22/18 11/22/18 11:10 11:10 12:24 WBC RBC Hgb 7.8 L Hct 25 L MCV MCH MCHC RDW Plt Count MPV Neut % (Auto) Lymph % (Auto) [place] % (Auto) Eos % (Auto) Baso % (Auto) Absolute Neuts (auto) Absolute Lymphs (auto) Absolute Monos (auto) Absolute Eos (auto) Absolute Basos (auto) Absolute Nucleated RBC Nucleated RBC % Sodium Potassium Chloride Carbon Dioxide Anion Gap BUN Creatinine Est GFR ( Amer) Est GFR (Non-Af Amer) BUN/Creatinine Ratio Glucose POC Glucose (mg/dL) 161 H Lactic Acid Calcium Total Bilirubin Direct Bilirubin Indirect Bilirubin AST ALT Alkaline Phosphatase Troponin I Total Protein Albumin Globulin Albumin/Globulin Ratio Vancomycin Trough 17.9 Blood Type Crossmatch Studies: CARDIAC ECHO: Contrast: Definity was used to optimize study. A total of 2 ml was used. Conclusions The left ventricular chamber size is normal. Mild concentric left ventricular hypertrophy is observed. Global left ventricular wall motion and contractility are within normal limits. There is normal left ventricular systolic function. The estimated ejection fraction is 60-65%. Patient is tachycardic at time of examination The left atrial chamber size is normal. The right ventricular chamber size and systolic function are within normal limits. There are no obvious significant valvular abnormalities with fair quality valve visualization There is mild to moderate dilatation of the aortic root.at 4.2 cm Compared to prior study from 03/2018, no clinically significant changes noted Patient Name: BAYLEE BROOKS Medical Record#: [id number] Ordering Physician: Lorraine Cruz MD Acct.#: [id number] : 1965 Age: 53 Sex: M Location: [facility] Exam Date: 11/21/18 1752 ADM Status: ADM IN Order Information: HIP LEFT 2 VIEWS AND PELVIS Accession Number: [id number] CPT: 12892 HISTORY: Septic hip . COMPARISONS: CT dated November 01, 2018 VIEWS: 4, frontal views of the pelvis with frontal and lateral views of the left hip FINDINGS: BONE DENSITY: There is diffuse osteopenia. 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 Accounting for differences in technique, the appearance is similar to the CT of November 02, 2015. JOINTS: As noted above, there is advanced erosive changes of the left hip. There is osteoarthritis of the right hip and SI joints. ALIGNMENT: There is no dislocation. SOFT TISSUES: Unremarkable. 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 IMPRESSION: AGAIN NOTED ARE ADVANCED EROSIVE CHANGES OF THE LEFT HIP SIMILAR TO THE CT OF NOVEMBER 01, 2018 Nutrition: Consistent carb diet Impression: This is a 53 year old male with history of osteomyelitis of the left hip, paraplegia, neurogenic bladder, chronic pain, DVT, wounds, and B12 and Vit D deficiency that presented from [facility] with tachycardia, hypotension and positive MRSA aspirate of the left hip. Plan: Cardiovascular - Tachycardic since admission - Received multiple fluid boluses at admission H&H 6.5/ and 7.8/ but remains tachy and hypotensive - Will transfuse 1 unit PRBCs now in anticipation of surgery tomorrow - Continue tele Pulmonary - Periods of low sats while sleeping, likely undiagnosed FRANCES - Trialed CPAP while napping, did not tolerate very well - Will try nasal canula overnight and continue on monitor GI -CC diet, keep NPO after midnight - Suprapubic catheter with debris, puss and sediment at admission - UTI/culture with proteus, susceptible to ceftriaxone, ID following - Urology will change cath on Sunday Musculoskeletal - Paraplegia with contractures at baseline - Left hip aspirate with MRSA, ID following, continue vancomycin - Left harrison wound with wound vac being managed by gen surgery, debrided and changed vac dressing today - Local wound care to sacral wound Neuro - Mentation intact - Continue pain meds and anti-spamodics for contracted extremities Endocrine - carb control diet, insulin SS Critical Care Time: 65 minutes Disposition: Inpatient/guarded
[2018-11-22] MEDS: cefTRIAXone(*) 1 GM in NS 0.9% 50 ML* 50 ML IVPB SCH (15:05)
--- NOTE | 2018-11-22 15:09 | CONS ---
CC: W[facility] Center; [facility]; [facility] CONSULTATION REPORT AND PROCEDURE NOTE: DATE OF CONSULT: 11/22/18. HISTORY OF PRESENT ILLNESS: Mr. Barth is a 53-year-old gentleman known to the Wound Center with a history of multiple pressure ulcers, most recently at the left lower leg and at the right hip. The patient has undergone treatment including vacuum dressing to the lower leg lesion. The patient was admitted to the hospital yesterday with a concern for MRSA of the left hip. He had undergone aspiration of the fluid collection 2 days prior with Orthopedics and was noted to have MRSA. For this reason, he was transferred from his long term to the emergency room where he was admitted to the ICU with diagnosis of sepsis and treated with vancomycin and followed by Orthopedics, who was concerned about the patient's left hip. The patient is planned for operative intervention tomorrow. Inquiry was about the known lesions that the patient has been seen in the Wound Center most recently as 9 days ago. The patient is paraplegic. He does complain of pain in the lower extremities and at the wounds. PAST MEDICAL HISTORY: Reviewed. MEDICATION LIST: Reviewed. PHYSICAL EXAM: On focused examination of the patient's left lower leg, he has a 7 x 4 cm chronic ulcer that is stage IV with exposed musculature with ischemic changes, it is foul smelling. We did remove vacuum dressing from the site to expose a foul smelling draining wound with necrotic musculature. DIAGNOSTIC STUDIES/LAB DATA: The right hip on review showed a chronic pressure ulcer stage IV with necrotic edges, but this was dry without any foul smelling drainage, but rather just scant drainage that extended down to the musculature as well without bone exposure. IMPRESSION: Pressure ulcers in a patient with paraplegia with necrotic musculature at the left lower leg wound, recommended excisional debridement at the site. After obtaining informed consent and discussing the risks, benefits and alternatives, the patient was prepped and with scissors, we excised ischemic muscle at the superior aspect of the wound and the inferior aspect staying out of the bleeding planes. We debrided musculature only without any subcutaneous tissue. Wound had the same size postop as pre. We did also a culture of the wound prior and 4x4 gauze was placed after gaining hemostasis. Kerlix was applied. The patient tolerated this procedure well. We will continue to follow him every 3 to 4 days. He can undergo a Santyl dressing to both wounds daily and this was discussed with the nurse and we will order this. [id number]/[facility] #: [id number] MTDD
[2018-11-22] MEDS: diPHENhydraMINE PO* 25 MG PO ONE ×2 (15:19→15:22)
--- NOTE | 2018-11-22 15:42 | CONS ---
CONSULTATION REPORT: DATE OF CONSULT: 11/22/18 REQUESTING PROVIDER: Freda Rios NP. CONSULTING SERVICE: Infectious Disease. REASON FOR CONSULTATION: Hip infection. IMPRESSION: 1. Chronic osteomyelitis of the proximal left femur and history of resection of the femoral head in the distant past, on suppressive doxycycline, now with methicillin-resistant Staphylococcus aureus ab scess, purulent fluid that was aspirated is growing methicillin-resistant Staphylococcus aureus. 2. Tachycardia. He is normotensive, receiving fluid boluses. 3. Type 2 diabetes. 4. Chronic Connor catheter with leukocyte esterase in urinalysis. 5. History of Klebsiella urinary tract infection. RECOMMENDATIONS: 1. Continue vancomycin, goal trough [address] Menendez's willingness to take him to [facility] operating room for debridement and a long course of IV antibiotics followed by an another attempt at oral suppression. 2. Ceftriaxone while awaiting the urine culture. HISTORY OF PRESENT ILLNESS: This is a 53-year-old man with history of paraplegia, neurogenic bladder , chronic Connor catheter and MRSA osteomyelitis of the left hip. While living in [place], he had h ad resection of the femoral head because of recurrence of MRSA osteo. He had been on doxycycline sup pression since he has lived here. He came to this area for senior living placement last summer. He t olerated doxycycline well and has been asymptomatic. He had seen Dr. Sanz, who did a CT scan of the pelvis for decubitus ulcer. The CT scan showed an abscess where the hip would have been. He reyes d increase in CRP to 100 around that time. I discussed this case with Dr. Sanz, who arranged fo r aspiration of the hip space, which was on the 11/19/18. He tolerated that well and MRSA grew from that procedure. When I called his senior living to discuss those results with them, they noted him to be having chills and so I recommended he come to the ER yesterday. His white count is 14,000. He is started on vancomycin. Blood cultures are negative so far. He is admitted to the ICU for tachycard ia. He was seen by Dr. Menendez, who is going to take him to the OR pending his anticoagulation resolut ion. Today, he denies any fever, chills, or sweats. He is having some left hip pain. He is hungry, though waiting in operating room. PAST MEDICAL HISTORY: 1. Osteomyelitis of the left femur, status post resection of the femoral head, on suppressive chronic antibiotics. 2. Paraplegia. 3. Neurogenic bladder, on chronic Connor catheter. 4. Chronic pain. 5. DVT. 6. B12 deficiency. 7. Decubitus ulcer. 8. Hyperlipidemia. 9. Vitamin D deficiency. 10. Gastroesophageal reflux disease. 11. Type 2 diabetes. 12. Pancreatitis. 13. Bipolar disorder. 14. Hypertension. 15. Status post posterior cervical fusion. 16. Status post transurethral resection of the prostate. 17. Status post suprapubic catheter. MEDICATIONS: 1. Tylenol. 2. Lipitor. 3. Dantrolene. 4. Docusate. 5. Famotidine. 6. Insulin lispro. 7. Melatonin. 8. Metoprolol. 9. Olanzapine. 10. Pregabalin. 11. Senna. 12. Vancomycin 1 g every 8 hours. ALLERGIES: OXYCODONE. FAMILY HISTORY: No recurrent infections. SOCIAL HISTORY: He lives at [facility], is originally from the [facility]. He is . REVIEW OF SYSTEMS: All negative except as noted above to 14-point review. PHYSICAL EXAM: Vital Signs: Temperature 33.4, heart rate 110, respiratory rate 18, blood pressure 1 25/65, oxygen saturation 99% on room air. In general, he is awake, not in distress. Neurologic: He is oriented x3, follows commands. HEENT: There is no conjunctival hemorrhage. Oropharynx is withou t lesions. Neck: Supple without mass. Heart is regular and tachycardic without murmurs. Lung soun ds are clear to auscultation bilaterally. Abdomen is soft, nontender, and nondistended. Bowel sounds present. Skin: There is no rash or splinter hemorrhage. Musculoskeletal: There is no spine tender ness to palpation. Left hip: There is no tenderness or erythema. DIAGNOSTIC STUDIES/LAB DATA: White blood cell count of 10.4, hemoglobin 6.5, platelets 358. Creatin ine is 0.6. Please see impression and recommendations as outlined above. Thanks for asking me to see Mr. Barth in consultation. [id number]/[facility] #: [id number]
[2018-11-22] MEDS: Metoprolol Succinate XL TAB* 50 MG PO SCH (22:00)
[2018-11-22] MEDS: Senna TAB PO SCH (22:01)
[2018-11-22] MEDS: Docusate CAP* 100 MG PO SCH (22:01)
[2018-11-22] MEDS: Melatonin 3 MG TAB PO SCH (22:01)
[2018-11-22] MEDS: OLANzapine TAB* 10 MG PO SCH (22:02)
[2018-11-23] MEDS: NS 0.9% 1000 ML** 1,000 ML IV SCH ×3 (02:42→17:38)
[2018-11-23] MEDS: Vancomycin(*) 1,000 MG in NS 0.9% 250 ML* 250 ML IVPB SCH ×3 (03:33→20:14)
[2018-11-23] MEDS ORDERED: Bupivacaine 0.5%* 50 ML VIAL ONE (06:48)
[2018-11-23] MEDS ORDERED: Famotidine IV* 10 MG/ML 2 ML (20 mg) ONE (07:18)
[2018-11-23] MEDS ORDERED: Lidocaine 2% PF * 5 ML VIAL ONE (08:04)
[2018-11-23] MEDS ORDERED: Ondansetron INJ* 2 MG/ML VIAL ONE (08:04)
[2018-11-23] MEDS ORDERED: Metoclopramide IV* 5 MG/ML 2 ML VIAL ONE (08:04)
[2018-11-23] MEDS ORDERED: Propofol* 10 MG/ML 20 ML BTL ONE (08:04)
[2018-11-23] MEDS ORDERED: Bacitracin INJECTION* 50,000 UNITS ONE (08:19)
[2018-11-23] MEDS: Insulin LISPRO* 1 UNITS UNIT SUBCUT SCH ×4 (08:26→22:19)
[2018-11-23] MEDS ORDERED: Naloxone* 0.4 MG/ML 1 ML VIAL IV PRN (08:41)
[2018-11-23] MEDS ORDERED: Phenylephrine 40 MCG/ML SYRINGE ONE (09:03)
[2018-11-23] MEDS: Morphine 4 MG/ML VIAL (1 ml) 4 MG/ML VIAL IV PRN ×6 (10:16→22:30)
[2018-11-23] MEDS: Famotidine TAB* 20 MG PO SCH ×2 (10:37→21:10)
[2018-11-23] MEDS: Pregabalin CAP(*) 25 MG PO SCH ×3 (10:37→21:10)
[2018-11-23] MEDS: Atorvastatin* 10 MG TAB PO SCH (10:38)
[2018-11-23] MEDS: Magnesium Oxide TAB* 400 MG PO SCH (10:38)
[2018-11-23] MEDS: DANTROLENE 25 MG PO SCH ×3 (10:38→21:12)
--- NOTE | 2018-11-23 11:31 | OP ---
DATE OF OPERATION: 11/23/18 - ROOM #435 DATE OF : 65 ATTENDING SURGEON: Samia Menendez MD PROPAGATOR: IRIS David. Ms. Abbasi did help throughout the procedure with preparation of the leg, wound retraction, manipulation of the hip, and wound closure. ANESTHESIOLOGIST: Dr. Mann. ANESTHESIA: General. PRE-OP DIAGNOSIS: Left hip joint infection, osteomyelitis with positive methicillin-resistant Staphylococcus aureus. POST-OP DIAGNOSIS: Left hip joint infection, osteomyelitis with positive methicillin-resistant Staphylococcus aureus. OPERATIVE PROCEDURE: Left open irrigation and debridement of the left hip joint with extensive debridement of necrotic soft tissue. ESTIMATED BLOOD LOSS: 150 cc. COMPLICATIONS: None. SPECIMEN: Multiple culture swabs sent for microbiology. BRIEF HISTORY/INDICATIONS: Mr. Barth is a 53-year-old paraplegic male with multiple areas of infection and chronic open wounds. Two years ago, he had left hip infection treated at an outside facility with a Girdlestone procedure and washout. He recently had increase in left hip pain, and aspiration did yield positive MRSA bacteria. I am consulted for open washout of the left hip joint. The patient and I had discussed his options. He understood my opinion was that an open washout of the hip would decrease the burden of infection and hopefully allow the IV antibiotics to suppress his chronic infection and I believe he had high likelihood of clearing the infection completely and the patient accepted this opinion. He wished to proceed with surgery because of pain and for infection control. He understood the risks of surgery included, but were not limited to, bleeding, infection, damage to nearby structures, continued pain, continued infection, need for further surgery, stroke, heart attack, blood clot , and the anesthesia complications. INTRAOPERATIVE FINDINGS: Intraoperatively, the patient was noted to have purulence in the hip joint once the capsule was opened. He had extensive necrotic soft tissue around the entire hip joint. He had 2 pockets of purulent fluid one near the ischial tuberosity and one superior to the greater troch and the abductors. These were thoroughly irrigated and debrided. DESCRIPTION OF PROCEDURE: Mr. Barth was identified in the preanesthesia unit. His left lower extremity was marked as the correct operative side. Informed consent was signed and placed in the chart. The patient was taken to the operating room and placed under anesthesia. He was placed in the right lateral decubitus position on the peg board. All bony prominences were well padded. Left lower extremity was prepped and draped in the usual sterile fashion. Preop time-out was made to correctly identify the patient's side and site. Appropriate perioperative antibiotics were given within 1 hour of incision. A posterior hip incision was made with a 10 blade. Electrocautery was used to dissect down to the lateral fascial layer. There was extensive muscular atrophy noted of the gluteal muscles. The lateral fascial layer was incised using a new 10 blade. Electrocautery was used to dissect onto the bone of the greater trochanter. Careful single-layer flap was elevated off the greater troch. As soon as the capsule was violated, there was purulent fluid, which were collected on multiple culture swabs. The capsule was completely opened and tagged with #5 Ethibond. There was extensive purulence and necrotic soft tissue in the entire hip joint region. This was carefully debrided using the rongeur. Three liters of sterile saline were used to copiously irrigate the joint. Further infected appearing necrotic tissue was carefully excised using electrocautery, rongeur and Aidan. A large curette was used to clear necrotic soft tissues from a sinus tract that did probe down to the ischial tuberosity. This abscess area had been visualized on CT scan. This area was thoroughly debrided. Another 3 L of sterile saline with Bacitracin were used to irrigate the joint and abscess pocket. Next, dissection with a large curette around the gluteal tendons and greater trochanter yielded another pocket of purulence. This was carefully debrided with a curette. Another 3 L of sterile saline with Bacitracin were used to thoroughly irrigate the wounds. No further necrotic or infected appearing soft tissue was visualized. The surface layer of the greater trochanter and proximal femur was carefully debrided using a rongeur. The previously tagged capsule was closed using #5 Ethibond. The lateral fascial layer was closed using interrupted #1 Vicryls. The rest of the incision was closed in a layered fashion using 0 and 2-0 Vicryls. Skin was closed using running 3-0 Monocryl and Dermabond. Sterile Adaptic, 4x4s, and paper tapes were used to cover the incision. The patient's anesthesia was reversed without difficulty. He was taken to the PACU in stable condition. He will have continued IV vancomycin. I would recommend at least 2 months of treatment. I would recommend lifetime suppression. General Surgery is currently treating the patient for the sacral and leg ulcers as well. These will be followed by General Surgery. [id number]/[facility] #: [id number] [facility]ammy
[2018-11-23] MEDS: Morphine TAB Extended Release (*) 15 MG TAB.ER PO SCH ×2 (11:48→21:10)
[2018-11-23] MEDS: cefTRIAXone(*) 1 GM in NS 0.9% 50 ML* 50 ML IVPB SCH (14:00)
--- NOTE | 2018-11-23 14:49 | PN ---
Date of Service: 11/23/18 Critical Care Services: Back from OR following irrigation and debridement of left hip. No problems postop. Vital Signs: Temp Pulse Resp BP SpO2 FiO2 97.9 F 116 20 118/89 98 Physical Exam: Gen:Alert, oriented Lungs: Clear Cardiac: Rhythm regular Extremities:No cyanosis Fluid Balance (Past 24 Hours): 11/23/18 06:59 Intake Total 4697 Output Total 2074 Balance 2623 Weight 200 lb 5.136 oz Intake: IV Fluids 3937 NS (0.9%) 3937 Vanco lr IVPB 550 NS (0.9%) 273 PRBC 277 Oral 210 Output: Urine 280 Connor 1794 Labs: Laboratory Results - last 24 hr 11/22/18 11/22/18 11/22/18 06:00 16:10 21:40 POC Glucose (mg/dL) 151 H 180 H Blood Type B Positive Antibody Screen Negative Crossmatch See Detail Postop labs (CBC, BMP) pending. Studies: None today Nutrition: Oral diet restarted. Impression: No problems after irrigation and debridement of left hip. No signs of sepsis. Plan: Will transfer out of ICU for continued (long-term) antibiotic therapy. Critical Care Time: 30 minutes
[2018-11-23 15:47] LABS: Hematocrit 24 % (36-46); Hemoglobin 7.6 g/dL (14.0-18.0); Mean Corpuscular HGB Conc 32 g/dL (31-36); Mean Corpuscular Hemoglobin 26 pg (27-31); Mean Corpuscular Volume 81 fL (80-94); Mean Platelet Volume 7.4 fL (7.4-10.4); Platelet Count 421 10^3/uL (150-450); Red Blood Count 2.93 10^6 /uL (4.18-5.48); Red Cell Distribution Width 17 % (10.5-15); White Blood Count 13.4 10^3/uL (3.5-10.8)
[2018-11-23 16:04] LABS: BUN/Creatinine Ratio 16.9 (8-20); Calcium 7.6 mg/dL (8.6-10.3); EGFR African American 117.3 (>60); EGFR Non-African American 96.9 (>60); Potassium 4.7 mmol/L (3.5-5.0)
[2018-11-23 19:46] LABS: Rapid HIV 1 Nonreactive (Nonreactive)
[2018-11-23] MEDS ORDERED: NS 0.9% 1000 ML** 1,000 ML IV ONE (20:46)
[2018-11-23] MEDS ORDERED: Cefepime 1 GM in Dextrose(*) 1 GM/50 ML BAG IV SCH (21:00)
--- NOTE | 2018-11-23 21:01 | PN ---
Hospitalist Progress Note Date of Service: 11/23/18 S: Called to Evaluate for Tachycardia and fevers after surgery. Patient is feeling well. Moderate pain at surgical site. No CP, SOB, Cough, Subjective F/C, N/V, abdominal pain, diarrhea. Patient has no sensation at this time in his legs ad cannot comment on possible pain from the wounds. Patient denies dizziness or general feelings of unwellness. O: General: 53yo M in Bed in NAD Cardiac: Tachycardia, No adventitious heart sounds. 2+ Pitting edema of LLE. Pulses 2+ with brisk capillary refill. Respiratory: Good Air exchange, Mild crackles in B/L LL which improve with deep breathing Abdomen: Soft Non-Tender : Suprapubic Cath in Place draining clear yellow urine Skin: Dry eschar without erythema on RLE, Large open area on lateral aspect of Left leg with drainage and Foul odor. A/P: Sepsis: Patient meets sepsis criteria with Tachycardia, Elevated WBCs, Fever and source of infection in Hip, Urine and leg. Will Broaden Antibiotic coverage to Cefepime, Vanco, Flagyl to cover anaerobes possibly from leg wound (No other signs of active infection than worsening smell). CXR, UA, BC pending. Will give tylenol and recurrent bolus of 1L NS. Lactic and BMP/CBC pending. Will continue to assess. Patient is normotensive and does not currently meet criteria for severe sepsis.
[2018-11-23] MEDS: Senna TAB PO SCH (21:09)
[2018-11-23] MEDS: Acetaminophen TAB* 325 MG PO PRN (21:09)
[2018-11-23] MEDS: Docusate CAP* 100 MG PO SCH (21:10)
[2018-11-23] MEDS: Metoprolol Succinate XL TAB* 50 MG PO SCH (21:10)
[2018-11-23] MEDS: OLANzapine TAB* 10 MG PO SCH (21:11)
[2018-11-23] MEDS: Melatonin 3 MG TAB PO SCH (21:11)
[2018-11-23 21:39] LABS: Calcium 7.5 mg/dL (8.6-10.3); EGFR African American 120.6 (>60); EGFR Non-African American 99.7 (>60); Potassium 4.6 mmol/L (3.5-5.0)
[2018-11-23 21:42] LABS: ABS Basophils 0.1 10^3/ul (0-0.2); ABS Eosinophils 0.3 10^3/ul (0-0.6); ABS Lymphocytes 1.5 10^3/ul (1.0-4.8); ABS Monocytes 0.4 10^3/ul (0-0.8); ABS Neutrophils 11.1 10^3/ul (1.5-7.7); ABS Nucleated RBC 0 10^3/ul; Hematocrit 23 % (36-46); Hemoglobin 7.4 g/dL (14.0-18.0); Mean Corpuscular HGB Conc 32 g/dL (31-36); Mean Corpuscular Hemoglobin 26 pg (27-31); Mean Corpuscular Volume 81 fL (80-94); Mean Platelet Volume 7.8 fL (7.4-10.4); Nucleated Red Blood Cells % 0; Platelet Count 421 10^3/uL (150-450); Red Cell Distribution Width 17 % (10.5-15); White Blood Count 13.4 10^3/uL (3.5-10.8)
[2018-11-23 23:02] LABS: Urine Appearance Turbid; Urine Bacteria Absent (Absent); Urine Bilirubin Negative (Negative); Urine Blood 1+ (Negative); Urine Color Yellow; Urine Glucose Negative (Negative); Urine Ketones Negative (Negative); Urine Nitrite Negative (Negative); Urine Protein 1+(30 mg/dL) (Negative); Urine Red Blood Cell 3+(>10/hpf) (Absent); Urine Specific Gravity 1.014 (1.010-1.030); Urine Urobilinogen Negative (Negative); Urine White Blood Cell 3+(>20/hpf) (Absent)
[2018-11-23] MEDS: metroNIDAZOLE IV 500 MG/100ML* 500 MG/100 ML BAG IVPB SCH (23:08)
[2018-11-24] MEDS: Cefepime ADVAN(*) 1 GM in NS 0.9% 50 ML* 50 ML IVPB SCH ×3 (00:17→22:22)
[2018-11-24] MEDS: Vancomycin(*) 1,000 MG in NS 0.9% 250 ML* 250 ML IVPB SCH ×3 (03:35→20:24)
[2018-11-24] MEDS ORDERED: NS 0.9% 1000 ML** 1,000 ML IV ONE ×2 (03:52→08:36)
[2018-11-24] MEDS: metroNIDAZOLE IV 500 MG/100ML* 500 MG/100 ML BAG IVPB SCH ×3 (05:54→21:22)
[2018-11-24] MEDS: Famotidine TAB* 20 MG PO SCH ×2 (08:21→21:23)
[2018-11-24] MEDS: Pregabalin CAP(*) 25 MG PO SCH ×3 (08:21→21:23)
[2018-11-24] MEDS: Apixaban* 5 MG TAB PO SCH ×2 (08:22→21:24)
[2018-11-24] MEDS: Magnesium Oxide TAB* 400 MG PO SCH (08:22)
[2018-11-24] MEDS: Morphine TAB Extended Release (*) 15 MG TAB.ER PO SCH ×2 (08:22→21:23)
[2018-11-24] MEDS: Atorvastatin* 10 MG TAB PO SCH (08:23)
[2018-11-24] MEDS: DANTROLENE 25 MG PO SCH ×3 (08:23→22:10)
--- NOTE | 2018-11-24 08:26 | PN ---
Progress Note - Progress Note Date of Service: 11/24/18 SOAP: Subjective: in bed resting, unable to answer any questions Objective: Vital Signs Temp Pulse Resp BP Pulse Ox 98.6 F 83 18 91/51 100 11/24/18 03:38 11/24/18 06:35 11/24/18 08:22 11/24/18 06:35 11/24/18 06:35 Laboratory Last Values WBC 13.4 10^3/uL (3.5-10.8) H 11/23/18 21:17 RBC 2.90 10^6 /uL (4.18-5.48) L 11/23/18 21:17 Hgb 7.4 g/dL (14.0-18.0) L 11/23/18 21:17 Hct 23 % (36-46) L 11/23/18 21:17 MCV 81 fL (80-94) 11/23/18 21:17 MCH 26 pg (27-31) L 11/23/18 21:17 MCHC 32 g/dL (31-36) 11/23/18 21:17 RDW 17 % (10.5-15) H 11/23/18 21:17 Plt Count 421 10^3/uL (150-450) 11/23/18 21:17 MPV 7.8 fL (7.4-10.4) 11/23/18 21:17 Neut % (Auto) 83.0 % 11/23/18 21:17 Lymph % (Auto) 11.0 % 11/23/18 21:17 [place] % (Auto) 3.3 % 11/23/18 21:17 Eos % (Auto) 2.0 % 11/23/18 21:17 Baso % (Auto) 0.7 % 11/23/18 21:17 Absolute Neuts (auto) 11.1 10^3/ul (1.5-7.7) H 11/23/18 21:17 Absolute Lymphs (auto) 1.5 10^3/ul (1.0-4.8) 11/23/18 21:17 Absolute Monos (auto) 0.4 10^3/ul (0-0.8) 11/23/18 21:17 Absolute Eos (auto) 0.3 10^3/ul (0-0.6) 11/23/18 21:17 Absolute Basos (auto) 0.1 10^3/ul (0-0.2) 11/23/18 21:17 Absolute Nucleated RBC 0 10^3/ul 11/23/18 21:17 Nucleated RBC % 0 11/23/18 21:17 INR (Anticoag Therapy) 1.41 (0.77-1.02) H 11/21/18 11:18 Sodium 135 mmol/L (135-145) 11/23/18 21:17 Potassium 4.6 mmol/L (3.5-5.0) 11/23/18 21:17 Chloride 105 mmol/L (101-111) 11/23/18 21:17 Carbon Dioxide 26 mmol/L (22-32) 11/23/18 21:17 Anion Gap 4 mmol/L (2-11) 11/23/18 21:17 BUN 17 mg/dL (6-24) 11/23/18 21:17 Creatinine 0.81 mg/dL (0.67-1.17) 11/23/18 21:17 Est GFR ( Amer) 120.6 (>60) 11/23/18 21:17 Est GFR (Non-Af Amer) 99.7 (>60) 11/23/18 21:17 BUN/Creatinine Ratio 21.0 (8-20) H 11/23/18 21:17 Glucose 183 mg/dL (70-100) H 11/23/18 21:17 POC Glucose (mg/dL) 201 mg/dL (70-100) H 11/24/18 07:47 Lactic Acid 1.3 mmol/L (0.5-2.0) 11/23/18 21:17 Calcium 7.5 mg/dL (8.6-10.3) L 11/23/18 21:17 Total Bilirubin 0.30 mg/dL (0.2-1.0) 11/22/18 06:00 Direct Bilirubin 0.10 mg/dL (0.03-0.18) 11/22/18 06:00 Indirect Bilirubin 0.2 mg/dL (0.3-1.0) L 11/22/18 06:00 AST 16 U/L (13-39) 11/22/18 06:00 ALT 14 U/L (7-52) 11/22/18 06:00 Alkaline Phosphatase 74 U/L (34-104) 11/22/18 06:00 Troponin I 0.20 ng/mL (<0.04) H* 11/21/18 16:47 C-Reactive Protein 137.93 mg/L (<8.01) H 11/21/18 11:18 Total Protein 5.2 g/dL (6.4-8.9) L 11/22/18 06:00 Albumin 1.8 g/dL (3.2-5.2) L 11/22/18 06:00 Globulin 3.4 g/dL (2-4) 11/22/18 06:00 Albumin/Globulin Ratio 0.5 (1-3) L 11/22/18 06:00 Urine Color Yellow 11/23/18 22:50 Urine Appearance Turbid 11/23/18 22:50 Urine pH 6.0 (5-9) 11/23/18 22:50 Ur Specific [place] 1.014 (1.010-1.030) 11/23/18 22:50 Urine Protein 1+(30 mg/dl) (Negative) A 11/23/18 22:50 Urine Ketones Negative (Negative) 11/23/18 22:50 Urine Blood 1+ (Negative) A 11/23/18 22:50 Urine Nitrate Negative (Negative) 11/23/18 22:50 Urine Bilirubin Negative (Negative) 11/23/18 22:50 Urine Urobilinogen Negative (Negative) 11/23/18 22:50 Ur Leukocyte Esterase 3+ (Negative) A 11/23/18 22:50 Urine WBC (Auto) 3+(>20/hpf) (Absent) A 11/23/18 22:50 Urine RBC (Auto) 3+(>10/hpf) (Absent) A 11/23/18 22:50 Urine Bacteria Absent (Absent) 11/23/18 22:50 Urine Glucose Negative (Negative) 11/23/18 22:50 Urine Ascorbic Acid * (Negative) A 11/23/18 22:50 Vancomycin Trough 17.9 mcg/mL 11/22/18 11:10 HIV 1&2 Antibody Rapid Nonreactive (Nonreactive) 11/23/18 18:41 Blood Type B Positive 11/22/18 06:00 Antibody Screen Negative 11/22/18 06:00 Crossmatch See Detail 11/22/18 06:00 incision: c/d Assessment: POD#1 s/p I&d left hip Plan: 1) Hospitalist co-managing 2) Eliquis BID for DVT prophylaxis 3) dressing change tomorrow
[2018-11-24 08:28] LABS: ABS Basophils 0.1 10^3/ul (0-0.2); ABS Eosinophils 0.3 10^3/ul (0-0.6); ABS Lymphocytes 1.2 10^3/ul (1.0-4.8); ABS Monocytes 0.4 10^3/ul (0-0.8); ABS Neutrophils 9.5 10^3/ul (1.5-7.7); ABS Nucleated RBC 0 10^3/ul; Eosinophil % 2.4 %; Hematocrit 19 % (36-46); Hemoglobin 6.2 g/dL (14.0-18.0); Lymphocyte % 10.1 %; Mean Corpuscular HGB Conc 32 g/dL (31-36); Mean Corpuscular Hemoglobin 26 pg (27-31); Mean Corpuscular Volume 81 fL (80-94); Mean Platelet Volume 7.7 fL (7.4-10.4); Nucleated Red Blood Cells % 0; Platelet Count 361 10^3/uL (150-450); Red Blood Count 2.37 10^6 /uL (4.18-5.48); Red Cell Distribution Width 17 % (10.5-15); White Blood Count 11.4 10^3/uL (3.5-10.8)
[2018-11-24 08:47] LABS: ALT 10 U/L (7-52); AST 14 U/L (13-39); Albumin 1.7 g/dL (3.2-5.2); Albumin/Globulin Ratio 0.5 (1-3); Alkaline Phosphatase 80 U/L (34-104); Anion Gap 3 mmol/L (2-11); BUN/Creatinine Ratio 19.4 (8-20); Blood Urea Nitrogen 14 mg/dL (6-24); C Reactive Protein 132.36 mg/L (<8.01); CO2 Carbon Dioxide 22 mmol/L (22-32); Calcium 7.4 mg/dL (8.6-10.3); Chloride 109 mmol/L (101-111); Creatine Kinase 37 U/L (10-223); EGFR African American 138.2 (>60); EGFR Non-African American 114.2 (>60); Globulin 3.3 g/dL (2-4); Glucose 149 mg/dL (70-100); Magnesium 1.5 mg/dL (1.9-2.7); Phosphorus 3.6 mg/dL (2.5-5.0); Sodium 134 mmol/L (135-145)
[2018-11-24 08:52] LABS: CKMB ng/mL 2.6 ng/mL (0.6-6.3)
[2018-11-24 08:56] LABS: Troponin I 0.17 ng/mL (<0.04)
[2018-11-24] MEDS: Insulin LISPRO* 1 UNITS UNIT SUBCUT SCH ×4 (08:58→21:24)
[2018-11-24 10:37] LABS: Erythrocyte Sed Rate 115 mm/Hr (0-19)
--- NOTE | 2018-11-24 14:01 | PN ---
Subjective Date of Service: 11/24/18 Interval History: Pt seen and examined. Meds and labs reviewed. Mildly hypotensive this AM. CAT call called for CP a few minutes later. Please see discussion below. CC: N/A ROS: Denied CHEN/dizziness, F/C, N/V, CP, SOB, increased cough, sputum production , abd pain, diarrhea, constipation, dysuria, myalgias, arthralgias, throat pain , and new skin lesions. The rest of the 14 point ROS are unremarkable. PHYSICAL EXAM: GEN APPEARANCE: Awake, not in acute distress HEENT: NC/AT, PERRLA, moist oral mucosa, (-) throat erythema NECK: Soft, supple, (-) cervical LAD, (-)JVD HEART: S1S2 WNL, RRR, No MRG CHEST: CTA, BL, GAE, No W/R/R ABD: Soft, ND/NT, NABS 4x Q (+)supra-pubic catheter EXT: No C/C/L. hip clean, mild serosanguinous fluid oozed to gauze, intact, clean appearing Sx wound SKIN: Warm to touch PSYCH: No active psychosis, hallucinations, depression, SI/HI Objective Active Medications: Acetaminophen (Tylenol Tab*) 650 mg PO Q4H PRN PRN Reason: FEVER/PAIN Last Admin: 11/23/18 21:09 Dose: 650 mg Albuterol (Ventolin Hfa Inhaler*) 1 puff INH Q4H PRN PRN Reason: SHORTNESS OF BREATH Apixaban (Eliquis*) 5 mg PO BID [facility] Last Admin: 11/24/18 08:22 Dose: 5 mg Atorvastatin Calcium (Lipitor*) 10 mg PO DAILY [facility] Last Admin: 11/24/18 08:23 Dose: 10 mg Collagenase (Santyl 250 Mg/Gm Oint*) 1 applic TOPICAL .SEE INSTRUCTIONS [facility] Dantrolene Sodium (Dantrium Cap*) 25 mg PO TID [facility] Last Admin: 11/24/18 08:23 Dose: 25 mg Dextrose (D50w Syringe 50 Ml*) 12.5 gm IV PUSH .FOR FS < 60 - SS PRN PRN Reason: FS < 60 Docusate Sodium (Colace Cap*) 100 mg PO 2100 [facility] Last Admin: 11/23/18 21:10 Dose: 100 mg Famotidine (Pepcid Tab*) 20 mg PO BID [facility] Last Admin: 11/24/18 08:21 Dose: 20 mg Vancomycin HCl 1,000 mg/ (Sodium Chloride) 250 mls @ 166.667 mls/hr IVPB Q8H [facility]; Protocol Last Admin: 11/24/18 11:32 Dose: 166.667 mls/hr Metronidazole/Sodium Chloride (Flagyl 500 Mg Ivpb*) 500 mg in 100 mls @ 100 mls /hr IVPB Q8H [facility] Last Admin: 11/24/18 05:54 Dose: 100 mls/hr Cefepime HCl 1 gm/ Sodium (Chloride) 50 mls @ 100 mls/hr IVPB Q12H [facility] Last Admin: 11/24/18 10:43 Dose: 100 mls/hr Sodium Chloride (Ns 0.9% 1000 Ml) 1,000 mls @ 125 mls/hr IV PER RATE [facility] Stop: 11/26/18 17:14 Insulin Human Lispro (Humalog*) 0 units SUBCUT ACHS [facility]; Protocol Last Admin: 11/24/18 12:39 Dose: 1 units Magnesium Oxide (Magox 400 Tab*) 400 mg PO DAILY [facility] Last Admin: 11/24/18 08:22 Dose: 400 mg Melatonin (Melatonin) 3 mg PO BEDTIME [facility] Last Admin: 11/23/18 21:11 Dose: 3 mg Metoprolol Succinate (Toprol Xl Tab*) 50 mg PO BEDTIME [facility] Last Admin: 11/23/18 21:10 Dose: 50 mg Morphine Sulfate (Ms Contin(*)) 15 mg PO Q12HR [facility] Last Admin: 11/24/18 08:22 Dose: 15 mg Morphine Sulfate (Morphine 4 Mg/Ml Vial (1 Ml)) 4 mg IV Q2H PRN PRN Reason: PAIN Last Admin: 11/23/18 22:30 Dose: 4 mg Olanzapine (Zyprexa Tab*) 15 mg PO BEDTIME [facility] Last Admin: 11/23/18 21:11 Dose: 15 mg Pharmacy Consult (Vancomycin Per Pharmacy*) 1 note FOLLOW UP . PRN PRN Reason: PER PROTOCOL Pharmacy Profile Note (Vancomycin Trough Check) 1 note FOLLOW UP ONCE ONE Stop: 11/25/18 11:01 Pregabalin (Lyrica Cap(*)) 25 mg PO TID [facility] Last Admin: 11/24/18 08:21 Dose: 25 mg Senna (Senokot Tab*) 2 tab PO BEDTIME [facility] Last Admin: 11/23/18 21:09 Dose: 2 tab Vital Signs - 8 hr 11/24/18 11/24/18 11/24/18 06:35 08:00 08:21 Temperature Pulse Rate 83 Respiratory 16 18 18 Rate Blood Pressure 91/51 (mmHg) O2 Sat by Pulse 100 Oximetry 11/24/18 11/24/18 11/24/18 08:22 10:11 10:33 Temperature 98.7 F 99.4 F Pulse Rate 98 96 Respiratory 18 Rate Blood Pressure 96/56 96/43 (mmHg) O2 Sat by Pulse 99 95 Oximetry 11/24/18 11/24/18 11:21 11:22 Temperature Pulse Rate Respiratory 18 18 Rate Blood Pressure (mmHg) O2 Sat by Pulse Oximetry Oxygen Devices in Use Now: None Result Diagrams: 11/24/18 08:08 11/24/18 08:08 Microbiology and Other Data: Microbiology 11/23/18 09:35 Anaerobic Culture - Preliminary Wound - Hip Left Skin and Soft Tissue MRSA/MSSA (PCR - Final Mrsa Positive S.aureus Positive Gram Stain - Final Wound Culture - Preliminary Staphylococcus Aureus 11/22/18 14:07 Gram Stain - Final Misc Source (See Comment) - Suprapubic Wound Culture - Preliminary Proteus Mirabilis 11/22/18 11:50 Skin and Soft Tissue MRSA/MSSA (PCR - Final Buttock Mrsa Negative S.aureus Negative Gram Stain - Final Wound Culture - Preliminary Corynebacterium Striatum Strep Dysgalac (Strep Equisim) Strep Agalactiae - (Group B) 11/22/18 10:05 Skin and Soft Tissue MRSA/MSSA (PCR - Final Leg Left Mrsa Negative S.aureus Negative Gram Stain - Final Wound Culture - Preliminary Strep Dysgalactiae (Grp C) Prevotella Bivia 11/21/18 11:19 Aerobic Blood Culture - Preliminary Blood Venous No Growth Day 3 Anaerobic Blood Culture - Preliminary No Growth Day 3 11/21/18 16:47 Aerobic Blood Culture - Preliminary Blood Venous No Growth Day 2 Anaerobic Blood Culture - Preliminary No Growth Day 2 11/21/18 11:49 Urine Culture - Preliminary Urine Proteus Mirabilis Assess/Plan/Problems-Billing Assessment: Case reviewed and d/w Cheyanne Rios [employer]. Mr Barth is a 53yo M with PMH of paraplegia, left ischial pressure ulcer s/p flap complicated by infection and left hip osteomyelitis requiring femoral head removal, DVT on Eliquis, pressure ulcers, neurogenic bladder with suprapubic catheter, type 2 DM, HTN, bipolar disorder, now residing at [facility], referred to ED due to left hip fluid aspirate growing MRSA. Case d/w Dr Huggins and Dr Menendez - patient has severe sepsis and is admitted to ICU. Will continue fluid resuscitation and Vancomycin. As per admitting [employer], patient's last Eliquis dose was 11/21/18 AM - plan for OR 11/23/18. - Patient Problems (1) Hypotension Current Visit: Yes Status: Acute Comment: -Possibly due to post-operative blood loss in the setting of chronic osteomyelitis S/P Left open irrigation and debridement of L. hip joint w/ extensive debridement of necrotic soft tissue. -Ordered for 2 units PRBC transfusion, appropriately typed and screened after 1L bolus ordered -LA WNL -Leukocytosis improving -CRP and ESR improving -Improved w/above management; continue watchful waiting (2) Chronic osteomyelitis Current Visit: Yes Status: Acute Code(s): M86.60 - OTHER CHRONIC OSTEOMYELITIS, UNSPECIFIED SITE SNOMED Code(s): 78133474 Comment: #Chronic OM w/L. hip joint infx: - S/P Left open irrigation and debridement of L. hip joint w/extensive debridement of necrotic soft tissue, POD#1 -Continue Cefepime, Flagyl, and Vancomycin---broadened due to concerns for unimproved sepsis with Rocephin and Vanco; will continue this for now and narrow Abx regimen if (3) Diabetes 1.5, managed as type 2 Current Visit: Yes Status: Acute Code(s): E13.9 - OTHER SPECIFIED DIABETES MELLITUS WITHOUT COMPLICATIONS SNOMED Code(s): 929623944 Comment: -Continue ISS -Continue FS monitoring (4) Chest pain Current Visit: Yes Status: Acute Code(s): R07.9 - CHEST PAIN, UNSPECIFIED SNOMED Code(s): 24346791 Comment: -Will obtain repeat EKG and CXR, currently pending -Continue to trend troponins as planned from hypotension -1st set obtained earlier due to hypotension actually improved from previous--- continue to follow (5) FRANCES (obstructive sleep apnea) Current Visit: Yes Status: Acute Code(s): G47.33 - OBSTRUCTIVE SLEEP APNEA ( ADULT) (PEDIATRIC) SNOMED Code(s): 16745019 Comment: -Suspected FRANCES due to nocturnal desats -Continue CPAP PRN and/or nasal cannula qHS (6) DVT (deep venous thrombosis) Current Visit: No Status: Acute Code(s): I82.409 - ACUTE EMBOLISM AND THOMBOS UNSP DEEP VN UNSP LOWER EXTREMITY SNOMED Code(s): 526642622 Comment: - Left femoral profunda DVT diagnosed 04/30/18. - Continue Apixaban. Status and Disposition: -As above -For PT eval
[2018-11-24] MEDS: NS 0.9% 1000 ML** 1,000 ML IV SCH ×2 (14:17→22:15)
[2018-11-24 15:10] LABS: CKMB ng/mL 5.2 ng/mL (0.6-6.3)
[2018-11-24] MEDS: Morphine 4 MG/ML VIAL (1 ml) 4 MG/ML VIAL IV PRN ×2 (15:17→18:27)
[2018-11-24 15:18] LABS: Creatine Kinase 75 U/L (10-223)
[2018-11-24 15:22] LABS: Troponin I 0.21 ng/mL (<0.04)
[2018-11-24] MEDS ORDERED: Magnesium Sulf 4 GM/100 ML IV* 4,000 MG/100 ML BAG IVPB ONE (17:00)
[2018-11-24 17:34] LABS: Hematocrit 27 % (36-46); Hemoglobin 8.6 g/dL (14.0-18.0); Mean Corpuscular HGB Conc 32 g/dL (31-36); Mean Corpuscular Hemoglobin 26 pg (27-31); Mean Corpuscular Volume 81 fL (80-94); Mean Platelet Volume 7.4 fL (7.4-10.4); Platelet Count 428 10^3/uL (150-450); Red Blood Count 3.31 10^6 /uL (4.18-5.48); Red Cell Distribution Width 17 % (10.5-15); White Blood Count 14.6 10^3/uL (3.5-10.8)
[2018-11-24] MEDS: Acetaminophen TAB* 325 MG PO PRN (18:26)
[2018-11-24 20:19] LABS: Troponin I 0.19 ng/mL (<0.04)
[2018-11-24] MEDS: Senna TAB PO SCH (21:23)
[2018-11-24] MEDS: Docusate CAP* 100 MG PO SCH (21:23)
[2018-11-24] MEDS: Melatonin 3 MG TAB PO SCH (21:24)
[2018-11-24] MEDS: OLANzapine TAB* 10 MG PO SCH (22:12)
[2018-11-24] MEDS: Metoprolol Succinate XL TAB* 50 MG PO SCH (22:16)
[2018-11-25] MEDS: Vancomycin(*) 1,000 MG in NS 0.9% 250 ML* 250 ML IVPB SCH ×2 (02:58→13:42)
[2018-11-25] MEDS: metroNIDAZOLE IV 500 MG/100ML* 500 MG/100 ML BAG IVPB SCH ×3 (05:22→22:03)
[2018-11-25 05:50] LABS: Hematocrit 25 % (36-46); Hemoglobin 8.1 g/dL (14.0-18.0); Mean Corpuscular HGB Conc 32 g/dL (31-36); Mean Corpuscular Hemoglobin 25 pg (27-31); Mean Corpuscular Volume 79 fL (80-94); Mean Platelet Volume 7.4 fL (7.4-10.4); Platelet Count 383 10^3/uL (150-450); Red Blood Count 3.17 10^6 /uL (4.18-5.48); Red Cell Distribution Width 20 % (10.5-15); White Blood Count 12.6 10^3/uL (3.5-10.8)
[2018-11-25 06:07] LABS: Albumin 1.7 g/dL (3.2-5.2); Albumin/Globulin Ratio 0.5 (1-3); BUN/Creatinine Ratio 16.9 (8-20); C Reactive Protein 159.32 mg/L (<8.01); Calcium 7.5 mg/dL (8.6-10.3); EGFR African American 155.5 (>60); EGFR Non-African American 128.5 (>60); Globulin 3.2 g/dL (2-4); Phosphorus 3.8 mg/dL (2.5-5.0); Potassium 3.7 mmol/L (3.5-5.0); Total Bilirubin 0.4 mg/dL (0.2-1.0); Total Protein 4.9 g/dL (6.4-8.9)
[2018-11-25] MEDS: NS 0.9% 1000 ML** 1,000 ML IV SCH (06:49)
[2018-11-25 07:24] LABS: Erythrocyte Sed Rate 86 mm/Hr (0-19)
[2018-11-25] MEDS: Insulin LISPRO* 1 UNITS UNIT SUBCUT SCH ×4 (08:46→22:09)
[2018-11-25] MEDS: Pregabalin CAP(*) 25 MG PO SCH ×3 (10:25→22:06)
[2018-11-25] MEDS: Famotidine TAB* 20 MG PO SCH ×2 (10:25→22:08)
[2018-11-25] MEDS: Apixaban* 5 MG TAB PO SCH ×2 (10:26→22:08)
[2018-11-25] MEDS: Atorvastatin* 10 MG TAB PO SCH (10:26)
[2018-11-25] MEDS: Morphine TAB Extended Release (*) 15 MG TAB.ER PO SCH ×2 (10:26→22:07)
[2018-11-25] MEDS: Magnesium Oxide TAB* 400 MG PO SCH (10:26)
--- NOTE | 2018-11-25 10:48 | PN ---
Progress Note - Progress Note Date of Service: 11/25/18 SOAP: Subjective: CC: Chronic osteomyelitis left hip with MRSA abscess HPI: Mr. Barth is a 53 yo male with PMH significant for paraplegia, neurogenic bladder with suprapubic urinary catheter, DM2, chronic pain, HLD, GERD, Bipolar disorder, HTN, and MRSA osteomyelitis of the left hip. Denies fever, chills, N/V /D. Objective: Vital Signs - 8 hr 11/25/18 11/25/18 03:04 07:59 Temperature 97.8 F 99.3 F Pulse Rate 102 100 Respiratory 20 16 Rate Blood Pressure 108/48 115/61 (mmHg) O2 Sat by Pulse 95 97 Oximetry Physical Exam: General: NAD, laying in bed HEENT: No thrush Neurological: Drowsy and Oriented Cardiovascular: Heart rate regular Respiratory: Lung clear bilateral Abdominal: Bowel sounds present; ABD soft, non tender and non distended Skin: No rashes seen on the exposed skin Laboratory Last Values WBC 12.6 10^3/uL (3.5-10.8) H 11/25/18 05:30 RBC 3.17 10^6 /uL (4.18-5.48) L 11/25/18 05:30 Hgb 8.1 g/dL (14.0-18.0) L 11/25/18 05:30 Hct 25 % (36-46) L 11/25/18 05:30 MCV 79 fL (80-94) L 11/25/18 05:30 MCH 25 pg (27-31) L 11/25/18 05:30 MCHC 32 g/dL (31-36) 11/25/18 05:30 RDW 20 % (10.5-15) H 11/25/18 05:30 Plt Count 383 10^3/uL (150-450) 11/25/18 05:30 MPV 7.4 fL (7.4-10.4) 11/25/18 05:30 Neut % (Auto) 82.9 % 11/24/18 08:08 Lymph % (Auto) 10.1 % 11/24/18 08:08 [place] % (Auto) 3.6 % 11/24/18 08:08 Eos % (Auto) 2.4 % 11/24/18 08:08 Baso % (Auto) 1.0 % 11/24/18 08:08 Absolute Neuts (auto) 9.5 10^3/ul (1.5-7.7) H 11/24/18 08:08 Absolute Lymphs (auto) 1.2 10^3/ul (1.0-4.8) 11/24/18 08:08 Absolute Monos (auto) 0.4 10^3/ul (0-0.8) 11/24/18 08:08 Absolute Eos (auto) 0.3 10^3/ul (0-0.6) 11/24/18 08:08 Absolute Basos (auto) 0.1 10^3/ul (0-0.2) 11/24/18 08:08 Absolute Nucleated RBC 0 10^3/ul 11/24/18 08:08 Nucleated RBC % 0 11/24/18 08:08 ESR 86 mm/Hr (0-19) H 11/25/18 05:30 INR (Anticoag Therapy) 1.41 (0.77-1.02) H 11/21/18 11:18 Sodium 135 mmol/L (135-145) 11/25/18 05:30 Potassium 3.7 mmol/L (3.5-5.0) 11/25/18 05:30 Chloride 110 mmol/L (101-111) 11/25/18 05:30 Carbon Dioxide 21 mmol/L (22-32) L 11/25/18 05:30 Anion Gap 4 mmol/L (2-11) 11/25/18 05:30 BUN 11 mg/dL (6-24) 11/25/18 05:30 Creatinine 0.65 mg/dL (0.67-1.17) L 11/25/18 05:30 Est GFR ( Amer) 155.5 (>60) 11/25/18 05:30 Est GFR (Non-Af Amer) 128.5 (>60) 11/25/18 05:30 BUN/Creatinine Ratio 16.9 (8-20) 11/25/18 05:30 Glucose 120 mg/dL (70-100) H 11/25/18 05:30 POC Glucose (mg/dL) 133 mg/dL (70-100) H 11/25/18 08:31 Lactic Acid 1.0 mmol/L (0.5-2.0) 11/24/18 14:03 Calcium 7.5 mg/dL (8.6-10.3) L 11/25/18 05:30 Phosphorus 3.8 mg/dL (2.5-5.0) 11/25/18 05:30 Magnesium 2.0 mg/dL (1.9-2.7) 11/25/18 05:30 Total Bilirubin 0.40 mg/dL (0.2-1.0) 11/25/18 05:30 Direct Bilirubin 0.10 mg/dL (0.03-0.18) 11/22/18 06:00 Indirect Bilirubin 0.2 mg/dL (0.3-1.0) L 11/22/18 06:00 AST 13 U/L (13-39) 11/25/18 05:30 ALT 9 U/L (7-52) 11/25/18 05:30 Alkaline Phosphatase 89 U/L (34-104) 11/25/18 05:30 Total Creatine Kinase 75 U/L (10-223) 11/24/18 14:03 CK-MB (CK-2) 5.2 ng/mL (0.6-6.3) 11/24/18 14:03 Troponin I 0.19 ng/mL (<0.04) H* 11/24/18 19:42 C-Reactive Protein 159.32 mg/L (<8.01) H 11/25/18 05:30 B-Natriuretic Peptide 125 pg/mL (<=100) H 11/24/18 08:08 Total Protein 4.9 g/dL (6.4-8.9) L 11/25/18 05:30 Albumin 1.7 g/dL (3.2-5.2) L 11/25/18 05:30 Globulin 3.2 g/dL (2-4) 11/25/18 05:30 Albumin/Globulin Ratio 0.5 (1-3) L 11/25/18 05:30 Urine Color Yellow 11/23/18 22:50 Urine Appearance Turbid 11/23/18 22:50 Urine pH 6.0 (5-9) 11/23/18 22:50 Ur Specific [place] 1.014 (1.010-1.030) 11/23/18 22:50 Urine Protein 1+(30 mg/dl) (Negative) A 11/23/18 22:50 Urine Ketones Negative (Negative) 11/23/18 22:50 Urine Blood 1+ (Negative) A 11/23/18 22:50 Urine Nitrate Negative (Negative) 11/23/18 22:50 Urine Bilirubin Negative (Negative) 11/23/18 22:50 Urine Urobilinogen Negative (Negative) 11/23/18 22:50 Ur Leukocyte Esterase 3+ (Negative) A 11/23/18 22:50 Urine WBC (Auto) 3+(>20/hpf) (Absent) A 11/23/18 22:50 Urine RBC (Auto) 3+(>10/hpf) (Absent) A 11/23/18 22:50 Urine Bacteria Absent (Absent) 11/23/18 22:50 Urine Glucose Negative (Negative) 11/23/18 22:50 Urine Ascorbic Acid * (Negative) A 11/23/18 22:50 Vancomycin Trough 17.9 mcg/mL 11/22/18 11:10 HIV 1&2 Antibody Rapid Nonreactive (Nonreactive) 11/23/18 18:41 Blood Type B Positive 11/22/18 06:00 Antibody Screen Negative 11/22/18 06:00 Crossmatch See Detail 11/22/18 06:00 Transfusion React Rpt 11/24/18 19:42 Donor Unit # [id number] 11/24/18 19:42 Post-Trans Blood Type B Positive 11/24/18 19:42 Post-Trans MERARI 1+ 11/24/18 19:42 Microbiology 11/22/18 10:05 Skin and Soft Tissue MRSA/MSSA (PCR - Final Leg Left Mrsa Negative S.aureus Negative Gram Stain - Final Wound Culture - Preliminary Strep Dysgalactiae (Grp C) Prevotella Bivia 11/23/18 22:50 Urine Culture - Final Urine No Growth (<1,000 CFU/mL) 11/24/18 19:32 Transfusion Reaction Gram Stain - Final Blood Bag 11/23/18 09:35 Anaerobic Culture - Preliminary Wound - Hip Left Skin and Soft Tissue MRSA/MSSA (PCR - Final Mrsa Positive S.aureus Positive Gram Stain - Final Wound Culture - Preliminary Staphylococcus Aureus 11/23/18 21:17 Aerobic Blood Culture - Preliminary Blood Venous No Growth Day 1 Anaerobic Blood Culture - Preliminary No Growth Day 1 11/22/18 11:50 Skin and Soft Tissue MRSA/MSSA (PCR - Final Buttock Mrsa Negative S.aureus Negative Gram Stain - Final Wound Culture - Preliminary Corynebacterium Striatum Strep Dysgalac (Strep Equisim) Strep Agalactiae - (Group B) 11/21/18 16:47 Aerobic Blood Culture - Preliminary Blood Venous No Growth Day 3 Anaerobic Blood Culture - Preliminary No Growth Day 3 11/24/18 14:07 Transfusion Reaction Gram Stain - Final Blood Bag 11/22/18 14:07 Gram Stain - Final Misc Source (See Comment) - Suprapubic Wound Culture - Preliminary Proteus Mirabilis 11/21/18 11:19 Aerobic Blood Culture - Preliminary Blood Venous No Growth Day 3 Anaerobic Blood Culture - Preliminary No Growth Day 3 11/21/18 11:49 Urine Culture - Preliminary Urine Proteus Mirabilis Assessment: 1. Chronic osteomyelitis of the proximal left femur with history of resection of the femoral head in the distant past, who is on suppressive doxycycline. S/P outpatient joint aspiration showing MRSA. S/P left hip joint I+D with extensive debridement of necrotic soft tissue, POD #2. Temperature max 102.7 on 11/23/18, now afebrile. Elevated CRP. 2. Chronic suprapubic catheter with leukocyte estrase on UA. History of Klebsiella UTIs. Initial urine culture from 11/21/18 with Proteus Mirabilis. Repeat urine culture with no growth. 3. DM2. Plan: Continue Vancomycin, goal trough 15 to 20. Continue cefepime and Flagyl today, will consider deescalation of ABX in the AM.
[2018-11-25] MEDS ORDERED: Vancomycin Trough Check NOTE FOLLOW UP ONE (11:00)
[2018-11-25] MEDS: DANTROLENE 25 MG PO SCH ×3 (11:03→22:08)
[2018-11-25] MEDS: Cefepime ADVAN(*) 1 GM in NS 0.9% 50 ML* 50 ML IVPB SCH ×2 (11:04→22:02)
--- NOTE | 2018-11-25 16:34 | PN ---
Subjective Date of Service: 11/25/18 Interval History: Pt seen and examined. Meds and labs reviewed. Mildly hypotensive this AM. CAT call called for CP a few minutes later. Please see discussion below. CC: N/A ROS: Denied CHEN/dizziness, F/C, N/V, CP, SOB, increased cough, sputum production , abd pain, diarrhea, constipation, dysuria, myalgias, arthralgias, throat pain , and new skin lesions. The rest of the 14 point ROS are unremarkable. PHYSICAL EXAM: GEN APPEARANCE: Awake, not in acute distress HEENT: NC/AT, PERRLA, moist oral mucosa, (-) throat erythema NECK: Soft, supple, (-) cervical LAD, (-)JVD HEART: S1S2 WNL, RRR, No MRG CHEST: CTA, BL, GAE, No W/R/R ABD: Soft, ND/NT, NABS 4x Q (+)supra-pubic catheter EXT: No C/C/L. hip cdi SKIN: Warm to touch PSYCH: No active psychosis, hallucinations, depression, SI/HI Objective Active Medications: Acetaminophen (Tylenol Tab*) 650 mg PO Q4H PRN PRN Reason: FEVER/PAIN Last Admin: 11/24/18 18:26 Dose: 650 mg Albuterol (Ventolin Hfa Inhaler*) 1 puff INH Q4H PRN PRN Reason: SHORTNESS OF BREATH Apixaban (Eliquis*) 5 mg PO BID [facility] Last Admin: 11/25/18 10:26 Dose: 5 mg Atorvastatin Calcium (Lipitor*) 10 mg PO DAILY [facility] Last Admin: 11/25/18 10:26 Dose: 10 mg Collagenase (Santyl 250 Mg/Gm Oint*) 1 applic TOPICAL .SEE INSTRUCTIONS [facility] Dantrolene Sodium (Dantrium Cap*) 25 mg PO TID [facility] Last Admin: 11/25/18 13:37 Dose: 25 mg Dextrose (D50w Syringe 50 Ml*) 12.5 gm IV PUSH .FOR FS < 60 - SS PRN PRN Reason: FS < 60 Docusate Sodium (Colace Cap*) 100 mg PO 2100 [facility] Last Admin: 11/24/18 21:23 Dose: 100 mg Famotidine (Pepcid Tab*) 20 mg PO BID [facility] Last Admin: 11/25/18 10:25 Dose: 20 mg Metronidazole/Sodium Chloride (Flagyl 500 Mg Ivpb*) 500 mg in 100 mls @ 100 mls /hr IVPB Q8H [facility] Last Admin: 11/25/18 13:37 Dose: 100 mls/hr Cefepime HCl 1 gm/ Sodium (Chloride) 50 mls @ 100 mls/hr IVPB Q12H [facility] Last Admin: 11/25/18 11:04 Dose: 100 mls/hr Sodium Chloride (Ns 0.9% 1000 Ml) 1,000 mls @ 125 mls/hr IV PER RATE YANET Stop: 11/26/18 17:14 Last Admin: 11/25/18 06:49 Dose: 125 mls/hr Insulin Human Lispro (Humalog*) 0 units SUBCUT ACHS [facility]; Protocol Last Admin: 11/25/18 13:20 Dose: Not Given Magnesium Oxide (Magox 400 Tab*) 400 mg PO DAILY [facility] Last Admin: 11/25/18 10:26 Dose: 400 mg Melatonin (Melatonin) 3 mg PO BEDTIME [facility] Last Admin: 11/24/18 21:24 Dose: 3 mg Metoprolol Succinate (Toprol Xl Tab*) 50 mg PO BEDTIME [facility] Last Admin: 11/24/18 22:16 Dose: Not Given Morphine Sulfate (Ms Contin(*)) 15 mg PO Q12HR [facility] Last Admin: 11/25/18 10:26 Dose: 15 mg Morphine Sulfate (Morphine 4 Mg/Ml Vial (1 Ml)) 4 mg IV Q2H PRN PRN Reason: PAIN Last Admin: 11/24/18 18:27 Dose: 4 mg Olanzapine (Zyprexa Tab*) 15 mg PO BEDTIME [facility] Last Admin: 11/24/18 22:12 Dose: 15 mg Pharmacy Consult (Vancomycin Per Pharmacy*) 1 note FOLLOW UP . PRN PRN Reason: PER PROTOCOL Pharmacy Consult (Vancomycin Random Level*) 1 note FOLLOW UP 0600 [facility] Pregabalin (Lyrica Cap(*)) 25 mg PO TID [facility] Last Admin: 11/25/18 13:37 Dose: 25 mg Senna (Senokot Tab*) 2 tab PO BEDTIME [facility] Last Admin: 11/24/18 21:23 Dose: 2 tab Vital Signs - 8 hr 11/25/18 11/25/18 11/25/18 10:25 10:26 12:36 Temperature 98.4 F Pulse Rate 104 Respiratory 20 20 16 Rate Blood Pressure 142/75 (mmHg) O2 Sat by Pulse 99 Oximetry 11/25/18 11/25/18 11/25/18 13:37 13:41 16:14 Temperature 99 F Pulse Rate 114 Respiratory 16 16 16 Rate Blood Pressure 124/74 (mmHg) O2 Sat by Pulse 96 Oximetry Oxygen Devices in Use Now: None Result Diagrams: 11/25/18 05:30 11/25/18 05:30 Microbiology and Other Data: Microbiology 11/23/18 09:35 Anaerobic Culture - Preliminary Wound - Hip Left Skin and Soft Tissue MRSA/MSSA (PCR - Final Mrsa Positive S.aureus Positive Gram Stain - Final Wound Culture - Preliminary Staphylococcus Aureus 11/22/18 14:07 Gram Stain - Final Misc Source (See Comment) - Suprapubic Wound Culture - Preliminary Proteus Mirabilis 11/22/18 11:50 Skin and Soft Tissue MRSA/MSSA (PCR - Final Buttock Mrsa Negative S.aureus Negative Gram Stain - Final Wound Culture - Preliminary Corynebacterium Striatum Strep Dysgalac (Strep Equisim) Strep Agalactiae - (Group B) 11/22/18 10:05 Skin and Soft Tissue MRSA/MSSA (PCR - Final Leg Left Mrsa Negative S.aureus Negative Gram Stain - Final Wound Culture - Preliminary Strep Dysgalactiae (Grp C) Prevotella Bivia 11/21/18 11:19 Aerobic Blood Culture - Preliminary Blood Venous No Growth Day 3 Anaerobic Blood Culture - Preliminary No Growth Day 3 11/21/18 16:47 Aerobic Blood Culture - Preliminary Blood Venous No Growth Day 2 Anaerobic Blood Culture - Preliminary No Growth Day 2 11/21/18 11:49 Urine Culture - Preliminary Urine Proteus Mirabilis Assess/Plan/Problems-Billing Assessment: Case reviewed and d/w Cheyanne Rios [employer]. Mr Barth is a 53yo M with PMH of paraplegia, left ischial pressure ulcer s/p flap complicated by infection and left hip osteomyelitis requiring femoral head removal, DVT on Eliquis, pressure ulcers, neurogenic bladder with suprapubic catheter, type 2 DM, HTN, bipolar disorder, now residing at [facility], referred to ED due to left hip fluid aspirate growing MRSA. Case d/w Dr Huggins and Dr Menendez - patient has severe sepsis and is admitted to ICU. Will continue fluid resuscitation and Vancomycin. As per admitting [employer], patient's last Eliquis dose was 11/21/18 AM - plan for OR 11/23/18. - Patient Problems (1) Hypotension Current Visit: Yes Status: Acute Comment: -Resolved -[place] due to post-operative blood loss in the setting of chronic osteomyelitis S/P Left open irrigation and debridement of L. hip joint w/ extensive debridement of necrotic soft tissue. -Ordered for 2 units PRBC transfusion, appropriately typed and screened after 1L bolus ordered -LA WNL -Leukocytosis improving - ESR improving although CRP mildly increased likely due to lag -Improved w/above management; continue watchful waiting (2) Chronic osteomyelitis Current Visit: Yes Status: Acute Code(s): M86.60 - OTHER CHRONIC OSTEOMYELITIS, UNSPECIFIED SITE SNOMED Code(s): 68522905 Comment: #Chronic OM w/L. hip joint infx: -S/P I&D (11/25/18) POD #0 - S/P Left open irrigation and debridement of L. hip joint w/extensive debridement of necrotic soft tissue, POD#2 -Continue Cefepime, Flagyl, and Vancomycin---broadened due to concerns for unimproved sepsis with Rocephin and Vanco; will continue this for now and narrow Abx regimen if ; D/W Jovana about Cefepime and Vanco and will defer if this will need to be continued upon ID review (3) Elevated troponin Current Visit: Yes Status: Acute Code(s): R74.8 - ABNORMAL LEVELS OF OTHER SERUM ENZYMES SNOMED Code(s): 199437804 Comment: -Trending down -Likely due to combination of sepsis and demand ischemia due to hypotension (4) Diabetes 1.5, managed as type 2 Current Visit: Yes Status: Acute Code(s): E13.9 - OTHER SPECIFIED DIABETES MELLITUS WITHOUT COMPLICATIONS SNOMED Code(s): 000897464 Comment: -Well-controlled -Continue ISS -Continue FS monitoring (5) FRANCES (obstructive sleep apnea) Current Visit: Yes Status: Acute Code(s): G47.33 - OBSTRUCTIVE SLEEP APNEA ( ADULT) (PEDIATRIC) SNOMED Code(s): 72741655 Comment: -Suspected FRANCES due to nocturnal desats -Continue CPAP PRN and/or nasal cannula qHS (6) DVT (deep venous thrombosis) Current Visit: No Status: Acute Code(s): I82.409 - ACUTE EMBOLISM AND THOMBOS UNSP DEEP VN UNSP LOWER EXTREMITY SNOMED Code(s): 327309710 Comment: - Left femoral profunda DVT diagnosed 04/30/18. - Continue Apixaban. Status and Disposition: -As above -For PT eval
--- NOTE | 2018-11-25 16:48 | PN ---
Progress Note - Progress Note Date of Service: 11/25/18 SOAP: Subjective: []Pt seen at bedside. Hip is not painful. Denies CP, SOB, dizziness, nausea. Objective: []Gen: NAD LLE: L hip dressing changed, incision CDI, thigh soft. Calves supple and nontender without erythema or palpable cords. Assessment: []POD#2 s/p I&d left hip Plan: 1) Hospitalist co-managing 2) Eliquis BID for DVT prophylaxis 3) dressing change daily 4) on vanco and flagyl Vital Signs Temp 99 F 11/25/18 16:14 Pulse 114 11/25/18 16:14 Resp 16 11/25/18 16:14 BP 124/74 11/25/18 16:14 Pulse Ox 96 11/25/18 16:14 Intake & Output 11/24/18 11/25/18 11/25/18 18:59 06:59 18:59 Intake Total 2076 2258 0 Output Total 800 2000 900 Balance 1276 258 -900 Weight 231 lb 11.2 oz Intake: IV Fluids 1716 1928 ABX - CEFEPIME 50 NS (0.9%) 1000 1578 PRBC 386 Vanco 280 250 flagyl 100 Oral 360 0 0 Packed Cells 330 Output: Urine 0 Connor 800 2000 900 Laboratory Last Values WBC 12.6 10^3/uL (3.5-10.8) H 11/25/18 05:30 RBC 3.17 10^6 /uL (4.18-5.48) L 11/25/18 05:30 Hgb 8.1 g/dL (14.0-18.0) L 11/25/18 05:30 Hct 25 % (36-46) L 11/25/18 05:30 MCV 79 fL (80-94) L 11/25/18 05:30 MCH 25 pg (27-31) L 11/25/18 05:30 MCHC 32 g/dL (31-36) 11/25/18 05:30 RDW 20 % (10.5-15) H 11/25/18 05:30 Plt Count 383 10^3/uL (150-450) 11/25/18 05:30 MPV 7.4 fL (7.4-10.4) 11/25/18 05:30 Neut % (Auto) 82.9 % 11/24/18 08:08 Lymph % (Auto) 10.1 % 11/24/18 08:08 Yell % (Auto) 3.6 % 11/24/18 08:08 Eos % (Auto) 2.4 % 11/24/18 08:08 Baso % (Auto) 1.0 % 11/24/18 08:08 Absolute Neuts (auto) 9.5 10^3/ul (1.5-7.7) H 11/24/18 08:08 Absolute Lymphs (auto) 1.2 10^3/ul (1.0-4.8) 11/24/18 08:08 Absolute Monos (auto) 0.4 10^3/ul (0-0.8) 11/24/18 08:08 Absolute Eos (auto) 0.3 10^3/ul (0-0.6) 11/24/18 08:08 Absolute Basos (auto) 0.1 10^3/ul (0-0.2) 11/24/18 08:08 Absolute Nucleated RBC 0 10^3/ul 11/24/18 08:08 Nucleated RBC % 0 11/24/18 08:08 ESR 86 mm/Hr (0-19) H 11/25/18 05:30 INR (Anticoag Therapy) 1.41 (0.77-1.02) H 11/21/18 11:18 Sodium 135 mmol/L (135-145) 11/25/18 05:30 Potassium 3.7 mmol/L (3.5-5.0) 11/25/18 05:30 Chloride 110 mmol/L (101-111) 11/25/18 05:30 Carbon Dioxide 21 mmol/L (22-32) L 11/25/18 05:30 Anion Gap 4 mmol/L (2-11) 11/25/18 05:30 BUN 11 mg/dL (6-24) 11/25/18 05:30 Creatinine 0.65 mg/dL (0.67-1.17) L 11/25/18 05:30 Est GFR ( Amer) 155.5 (>60) 11/25/18 05:30 Est GFR (Non-Af Amer) 128.5 (>60) 11/25/18 05:30 BUN/Creatinine Ratio 16.9 (8-20) 11/25/18 05:30 Glucose 120 mg/dL (70-100) H 11/25/18 05:30 POC Glucose (mg/dL) 99 mg/dL (70-100) 11/25/18 12:18 Lactic Acid 1.0 mmol/L (0.5-2.0) 11/24/18 14:03 Calcium 7.5 mg/dL (8.6-10.3) L 11/25/18 05:30 Phosphorus 3.8 mg/dL (2.5-5.0) 11/25/18 05:30 Magnesium 2.0 mg/dL (1.9-2.7) 11/25/18 05:30 Total Bilirubin 0.40 mg/dL (0.2-1.0) 11/25/18 05:30 Direct Bilirubin 0.10 mg/dL (0.03-0.18) 11/22/18 06:00 Indirect Bilirubin 0.2 mg/dL (0.3-1.0) L 11/22/18 06:00 AST 13 U/L (13-39) 11/25/18 05:30 ALT 9 U/L (7-52) 11/25/18 05:30 Alkaline Phosphatase 89 U/L (34-104) 11/25/18 05:30 Total Creatine Kinase 75 U/L (10-223) 11/24/18 14:03 CK-MB (CK-2) 5.2 ng/mL (0.6-6.3) 11/24/18 14:03 Troponin I 0.19 ng/mL (<0.04) H* 11/24/18 19:42 C-Reactive Protein 159.32 mg/L (<8.01) H 11/25/18 05:30 B-Natriuretic Peptide 125 pg/mL (<=100) H 11/24/18 08:08 Total Protein 4.9 g/dL (6.4-8.9) L 11/25/18 05:30 Albumin 1.7 g/dL (3.2-5.2) L 11/25/18 05:30 Globulin 3.2 g/dL (2-4) 11/25/18 05:30 Albumin/Globulin Ratio 0.5 (1-3) L 11/25/18 05:30 Urine Color Yellow 11/23/18 22:50 Urine Appearance Turbid 11/23/18 22:50 Urine pH 6.0 (5-9) 11/23/18 22:50 Ur Specific [place] 1.014 (1.010-1.030) 11/23/18 22:50 Urine Protein 1+(30 mg/dl) (Negative) A 11/23/18 22:50 Urine Ketones Negative (Negative) 11/23/18 22:50 Urine Blood 1+ (Negative) A 11/23/18 22:50 Urine Nitrate Negative (Negative) 11/23/18 22:50 Urine Bilirubin Negative (Negative) 11/23/18 22:50 Urine Urobilinogen Negative (Negative) 11/23/18 22:50 Ur Leukocyte Esterase 3+ (Negative) A 11/23/18 22:50 Urine WBC (Auto) 3+(>20/hpf) (Absent) A 11/23/18 22:50 Urine RBC (Auto) 3+(>10/hpf) (Absent) A 11/23/18 22:50 Urine Bacteria Absent (Absent) 11/23/18 22:50 Urine Glucose Negative (Negative) 11/23/18 22:50 Urine Ascorbic Acid * (Negative) A 11/23/18 22:50 Vancomycin Trough 30.4 mcg/mL H* 11/25/18 11:44 HIV 1&2 Antibody Rapid Nonreactive (Nonreactive) 11/23/18 18:41 Blood Type B Positive 11/22/18 06:00 Antibody Screen Negative 11/22/18 06:00 Crossmatch See Detail 11/22/18 06:00 Transfusion React Rpt 11/24/18 19:42 Donor Unit # [id number] 11/24/18 19:42 Post-Trans Blood Type B Positive 11/24/18 19:42 Post-Trans MERARI 1+ 11/24/18 19:42 Reaction Interpretation 11/24/18 19:42
[2018-11-25] MEDS: Morphine 4 MG/ML VIAL (1 ml) 4 MG/ML VIAL IV PRN ×2 (17:22→20:50)
[2018-11-25] MEDS: Acetaminophen TAB* 325 MG PO PRN (20:49)
[2018-11-25] MEDS: Senna TAB PO SCH (22:06)
[2018-11-25] MEDS: Metoprolol Succinate XL TAB* 50 MG PO SCH (22:06)
[2018-11-25] MEDS: Docusate CAP* 100 MG PO SCH (22:07)
[2018-11-25] MEDS: OLANzapine TAB* 10 MG PO SCH (22:07)
[2018-11-25] MEDS: Melatonin 3 MG TAB PO SCH (22:08)
[2018-11-26] MEDS: metroNIDAZOLE IV 500 MG/100ML* 500 MG/100 ML BAG IVPB SCH ×2 (05:34→12:26)
[2018-11-26 07:02] LABS: EGFR African American 150.1 (>60); EGFR Non-African American 124.1 (>60); Vancomycin Random 19.6 mcg/mL
[2018-11-26] MEDS: Vancomycin Random Level* NOTE FOLLOW UP SCH (08:22)
[2018-11-26] MEDS: Insulin LISPRO* 1 UNITS UNIT SUBCUT SCH ×4 (08:22→21:15)
--- NOTE | 2018-11-26 09:46 | PN ---
Progress Note - Progress Note Date of Service: 11/26/18 SOAP: Subjective: CC: Chronic osteomyelitis left hip with MRSA abscess HPI: Mr. Barth is a 53 yo male with PMH significant for paraplegia, neurogenic bladder with suprapubic urinary catheter, DM2, chronic pain, HLD, GERD, Bipolar disorder, HTN, and MRSA osteomyelitis of the left hip. Denies fever, chills, N/V /D. Objective: Vital Signs - 8 hr 11/26/18 11/26/18 11/26/18 03:34 03:35 08:00 Temperature 98.7 F Pulse Rate 85 Respiratory 20 20 14 Rate Blood Pressure 102/52 (mmHg) O2 Sat by Pulse 95 Oximetry Physical Exam: General: NAD, laying in bed Neurological: Drowsy and Oriented Cardiovascular: Heart rate regular Respiratory: Lung sounds clear Abdominal: Bowel sounds present; ABD soft, non tender and non distended Skin: No rashes Laboratory Last Values WBC 12.6 10^3/uL (3.5-10.8) H 11/25/18 05:30 RBC 3.17 10^6 /uL (4.18-5.48) L 11/25/18 05:30 Hgb 8.1 g/dL (14.0-18.0) L 11/25/18 05:30 Hct 25 % (36-46) L 11/25/18 05:30 MCV 79 fL (80-94) L 11/25/18 05:30 MCH 25 pg (27-31) L 11/25/18 05:30 MCHC 32 g/dL (31-36) 11/25/18 05:30 RDW 20 % (10.5-15) H 11/25/18 05:30 Plt Count 383 10^3/uL (150-450) 11/25/18 05:30 MPV 7.4 fL (7.4-10.4) 11/25/18 05:30 Neut % (Auto) 82.9 % 11/24/18 08:08 Lymph % (Auto) 10.1 % 11/24/18 08:08 [place] % (Auto) 3.6 % 11/24/18 08:08 Eos % (Auto) 2.4 % 11/24/18 08:08 Baso % (Auto) 1.0 % 11/24/18 08:08 Absolute Neuts (auto) 9.5 10^3/ul (1.5-7.7) H 11/24/18 08:08 Absolute Lymphs (auto) 1.2 10^3/ul (1.0-4.8) 11/24/18 08:08 Absolute Monos (auto) 0.4 10^3/ul (0-0.8) 11/24/18 08:08 Absolute Eos (auto) 0.3 10^3/ul (0-0.6) 11/24/18 08:08 Absolute Basos (auto) 0.1 10^3/ul (0-0.2) 11/24/18 08:08 Absolute Nucleated RBC 0 10^3/ul 11/24/18 08:08 Nucleated RBC % 0 11/24/18 08:08 ESR 86 mm/Hr (0-19) H 11/25/18 05:30 INR (Anticoag Therapy) 1.41 (0.77-1.02) H 11/21/18 11:18 Sodium 135 mmol/L (135-145) 11/25/18 05:30 Potassium 3.7 mmol/L (3.5-5.0) 11/25/18 05:30 Chloride 110 mmol/L (101-111) 11/25/18 05:30 Carbon Dioxide 21 mmol/L (22-32) L 11/25/18 05:30 Anion Gap 4 mmol/L (2-11) 11/25/18 05:30 BUN 10 mg/dL (6-24) 11/26/18 06:01 Creatinine 0.67 mg/dL (0.67-1.17) 11/26/18 06:01 Est GFR ( Amer) 150.1 (>60) 11/26/18 06:01 Est GFR (Non-Af Amer) 124.1 (>60) 11/26/18 06:01 BUN/Creatinine Ratio 16.9 (8-20) 11/25/18 05:30 Glucose 120 mg/dL (70-100) H 11/25/18 05:30 POC Glucose (mg/dL) 130 mg/dL (70-100) H 11/26/18 07:34 Lactic Acid 1.0 mmol/L (0.5-2.0) 11/24/18 14:03 Calcium 7.5 mg/dL (8.6-10.3) L 11/25/18 05:30 Phosphorus 3.8 mg/dL (2.5-5.0) 11/25/18 05:30 Magnesium 2.0 mg/dL (1.9-2.7) 11/25/18 05:30 Total Bilirubin 0.40 mg/dL (0.2-1.0) 11/25/18 05:30 Direct Bilirubin 0.10 mg/dL (0.03-0.18) 11/22/18 06:00 Indirect Bilirubin 0.2 mg/dL (0.3-1.0) L 11/22/18 06:00 AST 13 U/L (13-39) 11/25/18 05:30 ALT 9 U/L (7-52) 11/25/18 05:30 Alkaline Phosphatase 89 U/L (34-104) 11/25/18 05:30 Total Creatine Kinase 75 U/L (10-223) 11/24/18 14:03 CK-MB (CK-2) 5.2 ng/mL (0.6-6.3) 11/24/18 14:03 Troponin I 0.19 ng/mL (<0.04) H* 11/24/18 19:42 C-Reactive Protein 159.32 mg/L (<8.01) H 11/25/18 05:30 B-Natriuretic Peptide 125 pg/mL (<=100) H 11/24/18 08:08 Total Protein 4.9 g/dL (6.4-8.9) L 11/25/18 05:30 Albumin 1.7 g/dL (3.2-5.2) L 11/25/18 05:30 Globulin 3.2 g/dL (2-4) 11/25/18 05:30 Albumin/Globulin Ratio 0.5 (1-3) L 11/25/18 05:30 Urine Color Yellow 11/23/18 22:50 Urine Appearance Turbid 11/23/18 22:50 Urine pH 6.0 (5-9) 11/23/18 22:50 Ur Specific [place] 1.014 (1.010-1.030) 11/23/18 22:50 Urine Protein 1+(30 mg/dl) (Negative) A 11/23/18 22:50 Urine Ketones Negative (Negative) 11/23/18 22:50 Urine Blood 1+ (Negative) A 11/23/18 22:50 Urine Nitrate Negative (Negative) 11/23/18 22:50 Urine Bilirubin Negative (Negative) 11/23/18 22:50 Urine Urobilinogen Negative (Negative) 11/23/18 22:50 Ur Leukocyte Esterase 3+ (Negative) A 11/23/18 22:50 Urine WBC (Auto) 3+(>20/hpf) (Absent) A 11/23/18 22:50 Urine RBC (Auto) 3+(>10/hpf) (Absent) A 11/23/18 22:50 Urine Bacteria Absent (Absent) 11/23/18 22:50 Urine Glucose Negative (Negative) 11/23/18 22:50 Urine Ascorbic Acid * (Negative) A 11/23/18 22:50 Vancomycin Trough 30.4 mcg/mL H* 11/25/18 11:44 Random Vancomycin 19.6 mcg/mL 11/26/18 06:01 HIV 1&2 Antibody Rapid Nonreactive (Nonreactive) 11/23/18 18:41 Blood Type B Positive 11/22/18 06:00 Antibody Screen Negative 11/22/18 06:00 Crossmatch See Detail 11/22/18 06:00 Transfusion React Rpt 11/24/18 19:42 Donor Unit # [id number] 11/24/18 19:42 Post-Trans Blood Type B Positive 11/24/18 19:42 Post-Trans MERARI 1+ 11/24/18 19:42 Reaction Interpretation 11/24/18 19:42 Microbiology 11/23/18 21:17 Aerobic Blood Culture - Preliminary Blood Venous No Growth Day 2 Anaerobic Blood Culture - Preliminary No Growth Day 2 11/21/18 16:47 Aerobic Blood Culture - Preliminary Blood Venous No Growth Day 4 Anaerobic Blood Culture - Preliminary No Growth Day 4 11/21/18 11:49 Urine Culture - Preliminary Urine Proteus Mirabilis 11/22/18 14:07 Gram Stain - Final Misc Source (See Comment) - Suprapubic Wound Culture - Preliminary Proteus Mirabilis 11/24/18 19:32 Transfusion Reaction Culture - Preliminary Blood Bag Culture Under Incubation Transfusion Reaction Gram Stain - Final 11/24/18 14:07 Transfusion Reaction Culture - Preliminary Blood Bag Culture Under Incubation Transfusion Reaction Gram Stain - Final 11/23/18 09:35 Anaerobic Culture - Preliminary Wound - Hip Left Skin and Soft Tissue MRSA/MSSA (PCR - Final Mrsa Positive S.aureus Positive Gram Stain - Final Wound Culture - Final MRSA 11/21/18 11:19 Aerobic Blood Culture - Preliminary Blood Venous No Growth Day 4 Anaerobic Blood Culture - Preliminary No Growth Day 4 11/22/18 10:05 Skin and Soft Tissue MRSA/MSSA (PCR - Final Leg Left Mrsa Negative S.aureus Negative Gram Stain - Final Wound Culture - Preliminary Strep Dysgalactiae (Grp C) Prevotella Bivia 11/23/18 22:50 Urine Culture - Final Urine No Growth (<1,000 CFU/mL) 11/22/18 11:50 Skin and Soft Tissue MRSA/MSSA (PCR - Final Buttock Mrsa Negative S.aureus Negative Gram Stain - Final Wound Culture - Preliminary Corynebacterium Striatum Strep Dysgalac (Strep Equisim) Strep Agalactiae - (Group B) Assessment: 1. Chronic osteomyelitis of the proximal left femur with history of resection of the femoral head in the distant past, who was on suppressive doxycycline outpatient. S/P outpatient joint aspiration showing MRSA. S/P left hip joint I+ D with extensive debridement of necrotic soft tissue, POD #3. Afebrile today, but had fever last evening, T max 101.6. 2. Chronic suprapubic catheter with leukocyte estrase on UA. History of Klebsiella UTIs. Initial urine culture from 11/21/18 with Proteus Mirabilis. Repeat urine culture with no growth. 3. DM2. Plan: Continue Vancomycin, goal trough 15 to 20; will need 6 weeks, day . Discontinue Flagyl today. Cefepime (previously on ceftriaxone), day 5/5, will discontinue after last dose today.
[2018-11-26] MEDS: Magnesium Oxide TAB* 400 MG PO SCH (10:25)
[2018-11-26] MEDS: Famotidine TAB* 20 MG PO SCH ×2 (10:25→21:13)
[2018-11-26] MEDS: Cefepime ADVAN(*) 1 GM in NS 0.9% 50 ML* 50 ML IVPB SCH ×2 (10:25→21:09)
[2018-11-26] MEDS: Vancomycin(*) 1,000 MG in NS 0.9% 250 ML* 250 ML IVPB SCH ×2 (10:25→22:10)
[2018-11-26] MEDS: Pregabalin CAP(*) 25 MG PO SCH ×3 (10:26→21:14)
[2018-11-26] MEDS: Atorvastatin* 10 MG TAB PO SCH (10:26)
[2018-11-26] MEDS: Morphine TAB Extended Release (*) 15 MG TAB.ER PO SCH ×2 (10:27→21:13)
[2018-11-26] MEDS: Apixaban* 5 MG TAB PO SCH ×2 (10:28→21:14)
[2018-11-26] MEDS: DANTROLENE 25 MG PO SCH ×3 (10:31→21:15)
--- NOTE | 2018-11-26 14:16 | CONSULT ---
Subjective Date of Service: 11/26/18 Interval History: Mr. Barth is a 53 yo male with PMH significant for paraplegia, neurogenic bladder with suprapubic urinary catheter, DM2, chronic pain, HLD, GERD, Bipolar disorder, HTN, and MRSA osteomyelitis of the left hip, who presented to the hospital for a left hip infection wtih MRSA. He also presented to the hospital with know pressure injuries to his right buttock and left lower leg. He follows with the [facility] [place] [facility] and was seen by Dr. Johnson near the time of his admission and had bedside sharp debridement of the left lower leg. Patient seen and examined at bedside. Family History: Unchanged from Admission Social History: Unchanged from Admission Past Medical History: Unchanged from Admission Review of Systems - Measurements Intake and Output: Intake and Output Last 24 Hours 11/24/18 11/25/18 11/26/18 11/27/18 06:59 06:59 06:59 06:59 Intake Total 6398.3 4334 2344 280 Output Total 1805 2800 2450 1000 Balance 4593.3 1534 -106 -720 Weight 231 lb 11.2 oz 232 lb Intake: IV Fluids 5066.3 3644 750 ABX - CEFEPIME 55 50 50 NS (0.9%) 3056.3 2578 600 PRBC 386 Vanco 848 530 flagyl 107 100 100 lr 1000 IVPB 72 164 ABX - CEFEPIME 50 ABX - CEFTRIAXONE 72 flagyl 114 Oral 1805 375 9148 280 Packed Cells 330 Output: Urine 0 Connor 1805 2800 2450 1000 Other: Estimated Void Medium # Bowel Movements 0 # Voids 2 - Review of Systems Constitutional Symptoms: Negative: Fever, Other - Chills Dermatology: Positive: Other - Pressure injuries Neurology: Positive: Other - Paraplegia Objective Active Medications: Acetaminophen (Tylenol Tab*) 650 mg PO Q4H PRN Reason: FEVER/PAIN Albuterol (Ventolin Hfa Inhaler*) 1 puff INH Q4H PRN Reason: SHORTNESS OF BREATH Apixaban (Eliquis*) 5 mg PO BID [facility] Atorvastatin Calcium (Lipitor*) 10 mg PO DAILY [facility] Collagenase (Santyl 250 Mg/Gm Oint*) 1 applic TOPICAL .SEE INSTRUCTIONS [facility] Dantrolene Sodium (Dantrium Cap*) 25 mg PO TID [facility] Dextrose (D50w Syringe 50 Ml*) 12.5 gm IV PUSH .FOR FS < 60 - SS PRN Reason: FS < 60 Docusate Sodium (Colace Cap*) 100 mg PO 2100 [facility] Famotidine (Pepcid Tab*) 20 mg PO BID [facility] Metronidazole/Sodium Chloride (Flagyl 500 Mg Ivpb*) 500 mg in 100 mls @ 100 mls /hr IVPB Q8H [facility] Cefepime HCl 1 gm/ Sodium (Chloride) 50 mls @ 100 mls/hr IVPB Q12H [facility] Sodium Chloride (Ns 0.9% 1000 Ml) 1,000 mls @ 125 mls/hr IV PER RATE [facility] Stop: 11/26/18 17:14 Vancomycin HCl 1,000 mg/ (Sodium Chloride) 250 mls @ 166.667 mls/hr IVPB Q12H [facility] Insulin Human Lispro (Humalog*) 0 units SUBCUT ACHS [facility]; Protocol Magnesium Oxide (Magox 400 Tab*) 400 mg PO DAILY [facility] Melatonin (Melatonin) 3 mg PO BEDTIME [facility] Metoprolol Succinate (Toprol Xl Tab*) 50 mg PO BEDTIME [facility] Morphine Sulfate (Ms Contin(*)) 15 mg PO Q12HR [facility] Morphine Sulfate (Morphine 4 Mg/Ml Vial (1 Ml)) 4 mg IV Q2H PRN Reason: PAIN Olanzapine (Zyprexa Tab*) 15 mg PO BEDTIME [facility] Pharmacy Consult (Vancomycin Per Pharmacy*) 1 note FOLLOW UP . PRN Reason: PER PROTOCOL Pharmacy Consult (Vancomycin Random Level*) 1 note FOLLOW UP 0600 [facility] Pharmacy Profile Note (Vancomycin Trough Check) 1 note FOLLOW UP ONCE ONE Stop: 11/28/18 09:31 Pregabalin (Lyrica Cap(*)) 25 mg PO TID [facility] Senna (Senokot Tab*) 2 tab PO BEDTIME [facility] Vital Signs 11/26/18 11/26/18 11/26/18 08:00 08:06 10:26 Temperature 99.1 F Pulse Rate 85 Respiratory 14 18 18 Rate Blood Pressure 91/49 (mmHg) O2 Sat by Pulse 97 Oximetry Oxygen Devices in Use Now: None Appearance: NAD, laying in bed Ears/Nose/Mouth/Throat: Mucous Membranes Moist Respiratory: Symmetrical Chest Expansion and Respiratory Effort Cardiovascular: No Edema Skin: - - See skin note below Neurological: Alert and Oriented x 3 Nutrition: Taking PO's Result Diagrams: 11/27/18 05:50 11/27/18 05:50 Microbiology and Other Data: Microbiology 11/23/18 09:35 Anaerobic Culture - Preliminary Wound - Hip Left Skin and Soft Tissue MRSA/MSSA (PCR - Final Mrsa Positive S.aureus Positive Gram Stain - Final Wound Culture - Preliminary Staphylococcus Aureus 11/22/18 14:07 Gram Stain - Final Misc Source (See Comment) - Suprapubic Wound Culture - Preliminary Proteus Mirabilis 11/22/18 11:50 Skin and Soft Tissue MRSA/MSSA (PCR - Final Buttock Mrsa Negative S.aureus Negative Gram Stain - Final Wound Culture - Preliminary Corynebacterium Striatum Strep Dysgalac (Strep Equisim) Strep Agalactiae - (Group B) 11/22/18 10:05 Skin and Soft Tissue MRSA/MSSA (PCR - Final Leg Left Mrsa Negative S.aureus Negative Gram Stain - Final Wound Culture - Preliminary Strep Dysgalactiae (Grp C) Prevotella Bivia 11/21/18 11:19 Aerobic Blood Culture - Preliminary Blood Venous No Growth Day 3 Anaerobic Blood Culture - Preliminary No Growth Day 3 11/21/18 16:47 Aerobic Blood Culture - Preliminary Blood Venous No Growth Day 2 Anaerobic Blood Culture - Preliminary No Growth Day 2 11/21/18 11:49 Urine Culture - Preliminary Urine Proteus Mirabilis Skin Deviation Note - Skin Deviation Findings Left posterior lower leg -The wound measures, 8.5 cm x 5 cm x 0.4 cm. The wound base is pink with exposed tendon and some yellow slough. The surrounding skin is intact. There is some serous drainage from the wound. Left medial heel - There is an intact blister, measures 1.2 cm x 1.2 cm. The area has a purplish discoloration, the skin is intact. The surrounding skin is also intact without erythema. There is no drainage. Right ischium - There is a wound that measures, 7 cm x 5 cm x 4 cm. There is black eschar in the wound bed. There is serous drainage from the wound and a foul smell. The surrounding skin is intact, but with erythema. Assessment/Plan: 1. Left posterior leg pressure injury, stage 4. Previously treated with a wound vac at [facility]. The patient was seen by Dr. Johnson on admission and the wound was debrided. There is tendon exposure. Recommend continuing to follow Dr. Johnson 's recommendations of applying Santyl to the areas of slough and dry dressing, changing daily. Make sure there is no pressure to the area. 2. Right ischium pressure injury, stage 4. Previously treated at [facility] with daily wet to dry dressing changes and therahoney every other day. The patient was seen by Dr. Johnson on admission and it was recommended that the patient have Santyl applied to the area. Due to the significant amount eschar present in the wound bed, recommend discussing with general surgery about the possibility of sharp debridement. Continue Santyl and dry dressing for now. Frequent turning and repositioning. 3. Left heel deep tissue injury. This was also present on admission, continue to keep pressure off the area and elevated heels and use heel protectors. 4. Chronic osteomyelitis of the left hip, with MRSA abscess. S/P I+D with Orthopedics. Being followed by ID. 5. Paraplegia. 6. Diet. Consistent carbohydrate 7. Code Status. Full Code 8. Disposition. Inpatient, disposition per primary medicine team. TIME SPENT: Time for this wound consultation was 40 minutes and 30 minutes was spent with the patient discussing past medical history; removing dressings, assessing, measuring, photographing the wounds, and redressing the wounds. Wound Problem/Plan Is Patient a Wound Clinic Patient: Yes Current Treatment: Wound Vac to the left lower leg. Daily wet to dry dressing with therahoney applied every other day to the right ischium. Left medial heel DTI gets skin prep applied daily. Attending: Connie Gonzalez
--- NOTE | 2018-11-26 14:58 | PN ---
Progress Note - Progress Note Date of Service: 11/26/18 SOAP: Subjective: [] Pt seen at bedside. Hip is not painful. Denies fever, chils, CP, SOB, dizziness, nausea. Objective: []Gen: NAD LLE: L hip dressing changed, incision CDI, no erythema or drainage, thigh soft. DP2+, at baseline lacks motor fx and sensation LE. Calves supple and nontender without erythema or palpable cords. Assessment: []POD#3 s/p I&d left hip Plan: 1) Hospitalist co-managing 2) Eliquis BID for DVT prophylaxis 3) dressing change daily 4) on vanco and flagyl Vital Signs Temp 99.1 F 11/26/18 08:06 Pulse 85 11/26/18 08:06 Resp 16 11/26/18 14:34 BP 91/49 11/26/18 08:06 Pulse Ox 97 11/26/18 08:06 Intake & Output 11/25/18 11/26/18 11/26/18 18:59 06:59 18:59 Intake Total 1070 1274 280 Output Total 900 1550 1000 Balance 170 -276 -720 Weight 232 lb Intake: IV Fluids 750 ABX - CEFEPIME 50 NS (0.9%) 600 flagyl 100 IVPB 164 ABX - CEFEPIME 50 flagyl 114 Oral 320 1110 280 Output: Urine 0 Connor 900 1550 1000 Other: # Bowel Movements 0 Laboratory Last Values WBC 12.6 10^3/uL (3.5-10.8) H 11/25/18 05:30 RBC 3.17 10^6 /uL (4.18-5.48) L 11/25/18 05:30 Hgb 8.1 g/dL (14.0-18.0) L 11/25/18 05:30 Hct 25 % (36-46) L 11/25/18 05:30 MCV 79 fL (80-94) L 11/25/18 05:30 MCH 25 pg (27-31) L 11/25/18 05:30 MCHC 32 g/dL (31-36) 11/25/18 05:30 RDW 20 % (10.5-15) H 11/25/18 05:30 Plt Count 383 10^3/uL (150-450) 11/25/18 05:30 MPV 7.4 fL (7.4-10.4) 11/25/18 05:30 Neut % (Auto) 82.9 % 11/24/18 08:08 Lymph % (Auto) 10.1 % 11/24/18 08:08 [place] % (Auto) 3.6 % 11/24/18 08:08 Eos % (Auto) 2.4 % 11/24/18 08:08 Baso % (Auto) 1.0 % 11/24/18 08:08 Absolute Neuts (auto) 9.5 10^3/ul (1.5-7.7) H 11/24/18 08:08 Absolute Lymphs (auto) 1.2 10^3/ul (1.0-4.8) 11/24/18 08:08 Absolute Monos (auto) 0.4 10^3/ul (0-0.8) 11/24/18 08:08 Absolute Eos (auto) 0.3 10^3/ul (0-0.6) 11/24/18 08:08 Absolute Basos (auto) 0.1 10^3/ul (0-0.2) 11/24/18 08:08 Absolute Nucleated RBC 0 10^3/ul 11/24/18 08:08 Nucleated RBC % 0 11/24/18 08:08 ESR 86 mm/Hr (0-19) H 11/25/18 05:30 INR (Anticoag Therapy) 1.41 (0.77-1.02) H 11/21/18 11:18 Sodium 135 mmol/L (135-145) 11/25/18 05:30 Potassium 3.7 mmol/L (3.5-5.0) 11/25/18 05:30 Chloride 110 mmol/L (101-111) 11/25/18 05:30 Carbon Dioxide 21 mmol/L (22-32) L 11/25/18 05:30 Anion Gap 4 mmol/L (2-11) 11/25/18 05:30 BUN 10 mg/dL (6-24) 11/26/18 06:01 Creatinine 0.67 mg/dL (0.67-1.17) 11/26/18 06:01 Est GFR ( Amer) 150.1 (>60) 11/26/18 06:01 Est GFR (Non-Af Amer) 124.1 (>60) 11/26/18 06:01 BUN/Creatinine Ratio 16.9 (8-20) 11/25/18 05:30 Glucose 120 mg/dL (70-100) H 11/25/18 05:30 POC Glucose (mg/dL) 163 mg/dL (70-100) H 11/26/18 11:33 Lactic Acid 1.0 mmol/L (0.5-2.0) 11/24/18 14:03 Calcium 7.5 mg/dL (8.6-10.3) L 11/25/18 05:30 Phosphorus 3.8 mg/dL (2.5-5.0) 11/25/18 05:30 Magnesium 2.0 mg/dL (1.9-2.7) 11/25/18 05:30 Total Bilirubin 0.40 mg/dL (0.2-1.0) 11/25/18 05:30 Direct Bilirubin 0.10 mg/dL (0.03-0.18) 11/22/18 06:00 Indirect Bilirubin 0.2 mg/dL (0.3-1.0) L 11/22/18 06:00 AST 13 U/L (13-39) 11/25/18 05:30 ALT 9 U/L (7-52) 11/25/18 05:30 Alkaline Phosphatase 89 U/L (34-104) 11/25/18 05:30 Total Creatine Kinase 75 U/L (10-223) 11/24/18 14:03 CK-MB (CK-2) 5.2 ng/mL (0.6-6.3) 11/24/18 14:03 Troponin I 0.19 ng/mL (<0.04) H* 11/24/18 19:42 C-Reactive Protein 159.32 mg/L (<8.01) H 11/25/18 05:30 B-Natriuretic Peptide 125 pg/mL (<=100) H 11/24/18 08:08 Total Protein 4.9 g/dL (6.4-8.9) L 11/25/18 05:30 Albumin 1.7 g/dL (3.2-5.2) L 11/25/18 05:30 Globulin 3.2 g/dL (2-4) 11/25/18 05:30 Albumin/Globulin Ratio 0.5 (1-3) L 11/25/18 05:30 Urine Color Yellow 11/23/18 22:50 Urine Appearance Turbid 11/23/18 22:50 Urine pH 6.0 (5-9) 11/23/18 22:50 Ur Specific [place] 1.014 (1.010-1.030) 11/23/18 22:50 Urine Protein 1+(30 mg/dl) (Negative) A 11/23/18 22:50 Urine Ketones Negative (Negative) 11/23/18 22:50 Urine Blood 1+ (Negative) A 11/23/18 22:50 Urine Nitrate Negative (Negative) 11/23/18 22:50 Urine Bilirubin Negative (Negative) 11/23/18 22:50 Urine Urobilinogen Negative (Negative) 11/23/18 22:50 Ur Leukocyte Esterase 3+ (Negative) A 11/23/18 22:50 Urine WBC (Auto) 3+(>20/hpf) (Absent) A 11/23/18 22:50 Urine RBC (Auto) 3+(>10/hpf) (Absent) A 11/23/18 22:50 Urine Bacteria Absent (Absent) 11/23/18 22:50 Urine Glucose Negative (Negative) 11/23/18 22:50 Urine Ascorbic Acid * (Negative) A 11/23/18 22:50 Vancomycin Trough 30.4 mcg/mL H* 11/25/18 11:44 Random Vancomycin 19.6 mcg/mL 11/26/18 06:01 HIV 1&2 Antibody Rapid Nonreactive (Nonreactive) 11/23/18 18:41 Blood Type B Positive 11/22/18 06:00 Antibody Screen Negative 11/22/18 06:00 Crossmatch See Detail 11/22/18 06:00 Transfusion React Rpt 11/24/18 19:42 Donor Unit # [id number] 11/24/18 19:42 Post-Trans Blood Type B Positive 11/24/18 19:42 Post-Trans MERARI 1+ 11/24/18 19:42 Reaction Interpretation 11/24/18 19:42
[2018-11-26] MEDS: Morphine 4 MG/ML VIAL (1 ml) 4 MG/ML VIAL IV PRN (17:48)
--- NOTE | 2018-11-26 18:12 | PN ---
Subjective Date of Service: 11/26/18 Interval History: Pt seen and examined. Meds and labs reviewed. CC: N/A ROS: Denied CHEN/dizziness, F/C, N/V, CP, SOB, increased cough, sputum production , abd pain, diarrhea, constipation, dysuria, myalgias, arthralgias, throat pain , and new skin lesions. The rest of the 14 point ROS are unremarkable. PHYSICAL EXAM: GEN APPEARANCE: Awake, not in acute distress HEENT: NC/AT, PERRLA, moist oral mucosa, (-) throat erythema NECK: Soft, supple, (-) cervical LAD, (-)JVD HEART: S1S2 WNL, RRR, No MRG CHEST: CTA, BL, GAE, No W/R/R ABD: Soft, ND/NT, NABS 4x Q (+)supra-pubic catheter EXT: No C/C/L. hip cdi SKIN: Warm to touch PSYCH: No active psychosis, hallucinations, depression, SI/HI Family History: Unchanged from Admission Social History: Unchanged from Admission Past Medical History: Unchanged from Admission Objective Active Medications: Acetaminophen (Tylenol Tab*) 650 mg PO Q4H PRN PRN Reason: FEVER/PAIN Last Admin: 11/25/18 20:49 Dose: 650 mg Albuterol (Ventolin Hfa Inhaler*) 1 puff INH Q4H PRN PRN Reason: SHORTNESS OF BREATH Apixaban (Eliquis*) 5 mg PO BID [facility] Last Admin: 11/26/18 10:28 Dose: 5 mg Atorvastatin Calcium (Lipitor*) 10 mg PO DAILY [facility] Last Admin: 11/26/18 10:26 Dose: 10 mg Collagenase (Santyl 250 Mg/Gm Oint*) 1 applic TOPICAL DAILY [facility] Dantrolene Sodium (Dantrium Cap*) 25 mg PO TID [facility] Last Admin: 11/26/18 14:34 Dose: 25 mg Dextrose (D50w Syringe 50 Ml*) 12.5 gm IV PUSH .FOR FS < 60 - SS PRN PRN Reason: FS < 60 Docusate Sodium (Colace Cap*) 100 mg PO 2100 [facility] Last Admin: 11/25/18 22:07 Dose: 100 mg Famotidine (Pepcid Tab*) 20 mg PO BID [facility] Last Admin: 11/26/18 10:25 Dose: 20 mg Cefepime HCl 1 gm/ Sodium (Chloride) 50 mls @ 100 mls/hr IVPB Q12H [facility] Stop: 11/26/18 23:00 Last Admin: 11/26/18 10:25 Dose: 100 mls/hr Vancomycin HCl 1,000 mg/ (Sodium Chloride) 250 mls @ 166.667 mls/hr IVPB Q12H [facility] Last Admin: 11/26/18 10:25 Dose: 166.667 mls/hr Insulin Human Lispro (Humalog*) 0 units SUBCUT ACHS [facility]; Protocol Last Admin: 11/26/18 17:13 Dose: Not Given Magnesium Oxide (Magox 400 Tab*) 400 mg PO DAILY [facility] Last Admin: 11/26/18 10:25 Dose: 400 mg Melatonin (Melatonin) 3 mg PO BEDTIME [facility] Last Admin: 11/25/18 22:08 Dose: 3 mg Metoprolol Succinate (Toprol Xl Tab*) 50 mg PO BEDTIME [facility] Last Admin: 11/25/18 22:06 Dose: 50 mg Morphine Sulfate (Ms Contin(*)) 15 mg PO Q12HR [facility] Last Admin: 11/26/18 10:27 Dose: 15 mg Morphine Sulfate (Morphine 4 Mg/Ml Vial (1 Ml)) 4 mg IV Q2H PRN PRN Reason: PAIN Last Admin: 11/26/18 17:48 Dose: 4 mg Olanzapine (Zyprexa Tab*) 15 mg PO BEDTIME [facility] Last Admin: 11/25/18 22:07 Dose: 15 mg Pharmacy Consult (Vancomycin Per Pharmacy*) 1 note FOLLOW UP . PRN PRN Reason: PER PROTOCOL Pharmacy Consult (Vancomycin Random Level*) 1 note FOLLOW UP 0600 [facility] Last Admin: 11/26/18 08:22 Dose: 1 note Pharmacy Profile Note (Vancomycin Trough Check) 1 note FOLLOW UP ONCE ONE Stop: 11/28/18 09:31 Pregabalin (Lyrica Cap(*)) 25 mg PO TID [facility] Last Admin: 11/26/18 14:34 Dose: 25 mg Senna (Senokot Tab*) 2 tab PO BEDTIME [facility] Last Admin: 11/25/18 22:06 Dose: 2 tab Vital Signs - 8 hr 11/26/18 11/26/18 11/26/18 10:26 10:27 12:29 Temperature Pulse Rate Respiratory 18 18 16 Rate Blood Pressure (mmHg) O2 Sat by Pulse Oximetry 11/26/18 11/26/18 11/26/18 14:34 15:20 16:00 Temperature 98.4 F Pulse Rate 98 Respiratory 16 20 Rate Blood Pressure 102/74 (mmHg) O2 Sat by Pulse 98 95 Oximetry 11/26/18 17:48 Temperature Pulse Rate Respiratory 18 Rate Blood Pressure (mmHg) O2 Sat by Pulse Oximetry Oxygen Devices in Use Now: None Result Diagrams: 11/25/18 05:30 11/26/18 06:01 Microbiology and Other Data: Microbiology 11/23/18 09:35 Anaerobic Culture - Preliminary Wound - Hip Left Skin and Soft Tissue MRSA/MSSA (PCR - Final Mrsa Positive S.aureus Positive Gram Stain - Final Wound Culture - Preliminary Staphylococcus Aureus 11/22/18 14:07 Gram Stain - Final Misc Source (See Comment) - Suprapubic Wound Culture - Preliminary Proteus Mirabilis 11/22/18 11:50 Skin and Soft Tissue MRSA/MSSA (PCR - Final Buttock Mrsa Negative S.aureus Negative Gram Stain - Final Wound Culture - Preliminary Corynebacterium Striatum Strep Dysgalac (Strep Equisim) Strep Agalactiae - (Group B) 11/22/18 10:05 Skin and Soft Tissue MRSA/MSSA (PCR - Final Leg Left Mrsa Negative S.aureus Negative Gram Stain - Final Wound Culture - Preliminary Strep Dysgalactiae (Grp C) Prevotella Bivia 11/21/18 11:19 Aerobic Blood Culture - Preliminary Blood Venous No Growth Day 3 Anaerobic Blood Culture - Preliminary No Growth Day 3 11/21/18 16:47 Aerobic Blood Culture - Preliminary Blood Venous No Growth Day 2 Anaerobic Blood Culture - Preliminary No Growth Day 2 11/21/18 11:49 Urine Culture - Preliminary Urine Proteus Mirabilis Assess/Plan/Problems-Billing Assessment: Case reviewed and d/w Cheyanne Rios NP. Mr Barth is a 53yo M with PMH of paraplegia, left ischial pressure ulcer s/p flap complicated by infection and left hip osteomyelitis requiring femoral head removal, DVT on Eliquis, pressure ulcers, neurogenic bladder with suprapubic catheter, type 2 DM, HTN, bipolar disorder, now residing at [facility], referred to ED due to left hip fluid aspirate growing MRSA. Case d/w Dr Huggins and Dr Menendez - patient has severe sepsis and is admitted to ICU. Will continue fluid resuscitation and Vancomycin. As per admitting COLOR SEPARATION PHOTOGRAPHER, patient's last Eliquis dose was 11/21/18 AM - plan for OR 11/23/18. - Patient Problems (1) Chronic osteomyelitis Current Visit: Yes Status: Acute Code(s): M86.60 - OTHER CHRONIC OSTEOMYELITIS, UNSPECIFIED SITE SNOMED Code(s): 38820854 Comment: #Chronic OM w/L. hip joint infx: -S/P I&D (11/25/18) POD #1 - S/P Left open irrigation and debridement of L. hip joint w/extensive debridement of necrotic soft tissue, POD#3 -D/W Jovana; Continue IV Vanc and D/C Cefepime after today and D/Cd Flagyl (2) Elevated troponin Current Visit: Yes Status: Acute Code(s): R74.8 - ABNORMAL LEVELS OF OTHER SERUM ENZYMES SNOMED Code(s): 080284826 Comment: -Continue to trend -Likely due to combination of sepsis and demand ischemia due to hypotension (3) Diabetes 1.5, managed as type 2 Current Visit: Yes Status: Acute Code(s): E13.9 - OTHER SPECIFIED DIABETES MELLITUS WITHOUT COMPLICATIONS SNOMED Code(s): 726753379 Comment: -Well-controlled -Continue ISS -Continue FS monitoring (4) FRANCES (obstructive sleep apnea) Current Visit: Yes Status: Acute Code(s): G47.33 - OBSTRUCTIVE SLEEP APNEA ( ADULT) (PEDIATRIC) SNOMED Code(s): 19636311 Comment: -Suspected FRANCES due to nocturnal desats -Continue CPAP PRN and/or nasal cannula qHS (5) DVT (deep venous thrombosis) Current Visit: No Status: Acute Code(s): I82.409 - ACUTE EMBOLISM AND THOMBOS UNSP DEEP VN UNSP LOWER EXTREMITY SNOMED Code(s): 250401345 Comment: - Left femoral profunda DVT diagnosed 04/30/18. - Continue Apixaban. Status and Disposition: -As above -D/C to [facility] when ready
[2018-11-26 20:02] LABS: Troponin I 0.21 ng/mL (<0.04)
[2018-11-26] MEDS: Melatonin 3 MG TAB PO SCH (21:13)
[2018-11-26] MEDS: Senna TAB PO SCH (21:14)
[2018-11-26] MEDS: Metoprolol Succinate XL TAB* 50 MG PO SCH (21:15)
[2018-11-26] MEDS: Docusate CAP* 100 MG PO SCH (21:15)
[2018-11-26] MEDS: OLANzapine TAB* 10 MG PO SCH (21:21)
[2018-11-27 00:45] LABS: Troponin I 0.21 ng/mL (<0.04)
[2018-11-27] MEDS: Vancomycin Random Level* NOTE FOLLOW UP SCH (06:24)
[2018-11-27 06:39] LABS: ABS Basophils 0.1 10^3/ul (0-0.2); ABS Eosinophils 0.3 10^3/ul (0-0.6); ABS Lymphocytes 1.1 10^3/ul (1.0-4.8); ABS Monocytes 0.5 10^3/ul (0-0.8); ABS Neutrophils 9.6 10^3/ul (1.5-7.7); ABS Nucleated RBC 0 10^3/ul; Eosinophil % 2.5 %; Hematocrit 27 % (36-46); Hemoglobin 8.6 g/dL (14.0-18.0); Lymphocyte % 9.7 %; Mean Corpuscular HGB Conc 32 g/dL (31-36); Mean Corpuscular Hemoglobin 25 pg (27-31); Mean Corpuscular Volume 79 fL (80-94); Mean Platelet Volume 7.8 fL (7.4-10.4); Nucleated Red Blood Cells % 0; Platelet Count 419 10^3/uL (150-450); Red Cell Distribution Width 20 % (10.5-15); White Blood Count 11.7 10^3/uL (3.5-10.8)
[2018-11-27 06:53] LABS: Vancomycin Trough 23.5 mcg/mL
[2018-11-27 06:54] LABS: Albumin 1.8 g/dL (3.2-5.2); Albumin/Globulin Ratio 0.5 (1-3); BUN/Creatinine Ratio 13.1 (8-20); Calcium 8.1 mg/dL (8.6-10.3); EGFR African American 167.3 (>60); EGFR Non-African American 138.3 (>60); Globulin 3.6 g/dL (2-4); Magnesium 1.8 mg/dL (1.9-2.7); Phosphorus 3.5 mg/dL (2.5-5.0); Potassium 3.7 mmol/L (3.5-5.0); Total Bilirubin 0.3 mg/dL (0.2-1.0); Total Protein 5.4 g/dL (6.4-8.9)
[2018-11-27] MEDS: Insulin LISPRO* 1 UNITS UNIT SUBCUT SCH ×4 (07:58→22:35)
--- NOTE | 2018-11-27 08:27 | PN ---
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 Barth is a 53 yo male with PMH significant for paraplegia, neurogenic bladder with suprapubic urinary catheter, DM2, chronic pain, HLD, GERD, Bipolar disorder, HTN, and MRSA osteomyelitis of the left hip. Denies fever, chills, N/V /D, back pain or leg pain. Objective: Vital Signs 11/27/18 08:07 Temperature 98.1 F Pulse Rate 92 Respiratory 17 Rate Blood Pressure 110/59 (mmHg) O2 Sat by Pulse 94 Oximetry Physical Exam: General: NAD, sitting up in bed Neurological: Alert and Oriented Cardiovascular: Heart rate regular Respiratory: Lungs clear Abdominal: Bowel sounds present; ABD soft, non tender and non distended Skin No rashes seen on the exposed skin. There is a pressure injury to the left posterior LE and right buttock. Incision to the left hip. Dressings in place with no surrounding erythema. Laboratory Last Values WBC 11.7 10^3/uL (3.5-10.8) H 11/27/18 05:50 RBC 3.40 10^6 /uL (4.18-5.48) L 11/27/18 05:50 Hgb 8.6 g/dL (14.0-18.0) L 11/27/18 05:50 Hct 27 % (36-46) L 11/27/18 05:50 MCV 79 fL (80-94) L 11/27/18 05:50 MCH 25 pg (27-31) L 11/27/18 05:50 MCHC 32 g/dL (31-36) 11/27/18 05:50 RDW 20 % (10.5-15) H 11/27/18 05:50 Plt Count 419 10^3/uL (150-450) 11/27/18 05:50 MPV 7.8 fL (7.4-10.4) 11/27/18 05:50 Neut % (Auto) 82.4 % 11/27/18 05:50 Lymph % (Auto) 9.7 % 11/27/18 05:50 [place] % (Auto) 4.5 % 11/27/18 05:50 Eos % (Auto) 2.5 % 11/27/18 05:50 Baso % (Auto) 0.9 % 11/27/18 05:50 Absolute Neuts (auto) 9.6 10^3/ul (1.5-7.7) H 11/27/18 05:50 Absolute Lymphs (auto) 1.1 10^3/ul (1.0-4.8) 11/27/18 05:50 Absolute Monos (auto) 0.5 10^3/ul (0-0.8) 11/27/18 05:50 Absolute Eos (auto) 0.3 10^3/ul (0-0.6) 11/27/18 05:50 Absolute Basos (auto) 0.1 10^3/ul (0-0.2) 11/27/18 05:50 Absolute Nucleated RBC 0 10^3/ul 11/27/18 05:50 Nucleated RBC % 0 11/27/18 05:50 ESR 86 mm/Hr (0-19) H 11/25/18 05:30 INR (Anticoag Therapy) 1.41 (0.77-1.02) H 11/21/18 11:18 Sodium 135 mmol/L (135-145) 11/27/18 05:50 Potassium 3.7 mmol/L (3.5-5.0) 11/27/18 05:50 Chloride 108 mmol/L (101-111) 11/27/18 05:50 Carbon Dioxide 25 mmol/L (22-32) 11/27/18 05:50 Anion Gap 2 mmol/L (2-11) 11/27/18 05:50 BUN 8 mg/dL (6-24) 11/27/18 05:50 Creatinine 0.61 mg/dL (0.67-1.17) L 11/27/18 05:50 Est GFR ( Amer) 167.3 (>60) 11/27/18 05:50 Est GFR (Non-Af Amer) 138.3 (>60) 11/27/18 05:50 BUN/Creatinine Ratio 13.1 (8-20) 11/27/18 05:50 Glucose 94 mg/dL (70-100) 11/27/18 05:50 POC Glucose (mg/dL) 122 mg/dL (70-100) H 11/27/18 07:35 Lactic Acid 1.0 mmol/L (0.5-2.0) 11/24/18 14:03 Calcium 8.1 mg/dL (8.6-10.3) L 11/27/18 05:50 Phosphorus 3.5 mg/dL (2.5-5.0) 11/27/18 05:50 Magnesium 1.8 mg/dL (1.9-2.7) L 11/27/18 05:50 Total Bilirubin 0.30 mg/dL (0.2-1.0) 11/27/18 05:50 Direct Bilirubin 0.10 mg/dL (0.03-0.18) 11/22/18 06:00 Indirect Bilirubin 0.2 mg/dL (0.3-1.0) L 11/22/18 06:00 AST 9 U/L (13-39) L 11/27/18 05:50 ALT 6 U/L (7-52) L 11/27/18 05:50 Alkaline Phosphatase 79 U/L (34-104) 11/27/18 05:50 Total Creatine Kinase 75 U/L (10-223) 11/24/18 14:03 CK-MB (CK-2) 5.2 ng/mL (0.6-6.3) 11/24/18 14:03 Troponin I 0.21 ng/mL (<0.04) H* 11/27/18 00:13 C-Reactive Protein 159.32 mg/L (<8.01) H 11/25/18 05:30 B-Natriuretic Peptide 125 pg/mL (<=100) H 11/24/18 08:08 Total Protein 5.4 g/dL (6.4-8.9) L 11/27/18 05:50 Albumin 1.8 g/dL (3.2-5.2) L 11/27/18 05:50 Globulin 3.6 g/dL (2-4) 11/27/18 05:50 Albumin/Globulin Ratio 0.5 (1-3) L 11/27/18 05:50 Urine Color Yellow 11/23/18 22:50 Urine Appearance Turbid 11/23/18 22:50 Urine pH 6.0 (5-9) 11/23/18 22:50 Ur Specific [place] 1.014 (1.010-1.030) 11/23/18 22:50 Urine Protein 1+(30 mg/dl) (Negative) A 11/23/18 22:50 Urine Ketones Negative (Negative) 11/23/18 22:50 Urine Blood 1+ (Negative) A 11/23/18 22:50 Urine Nitrate Negative (Negative) 11/23/18 22:50 Urine Bilirubin Negative (Negative) 11/23/18 22:50 Urine Urobilinogen Negative (Negative) 11/23/18 22:50 Ur Leukocyte Esterase 3+ (Negative) A 11/23/18 22:50 Urine WBC (Auto) 3+(>20/hpf) (Absent) A 11/23/18 22:50 Urine RBC (Auto) 3+(>10/hpf) (Absent) A 11/23/18 22:50 Urine Bacteria Absent (Absent) 11/23/18 22:50 Urine Glucose Negative (Negative) 11/23/18 22:50 Urine Ascorbic Acid * (Negative) A 11/23/18 22:50 Vancomycin Trough 23.5 mcg/mL 11/27/18 05:50 Random Vancomycin 19.6 mcg/mL 11/26/18 06:01 HIV 1&2 Antibody Rapid Nonreactive (Nonreactive) 11/23/18 18:41 Blood Type B Positive 11/22/18 06:00 Antibody Screen Negative 11/22/18 06:00 Crossmatch See Detail 11/22/18 06:00 Transfusion React Rpt 11/24/18 19:42 Donor Unit # [id number] 11/24/18 19:42 Post-Trans Blood Type B Positive 11/24/18 19:42 Post-Trans MERARI 1+ 11/24/18 19:42 Reaction Interpretation 11/24/18 19:42 Microbiology 11/22/18 14:07 Gram Stain - Final Misc Source (See Comment) - Suprapubic Wound Culture - Final Proteus Mirabilis 11/21/18 11:49 Urine Culture - Final Urine Proteus Mirabilis 11/23/18 21:17 Aerobic Blood Culture - Preliminary Blood Venous No Growth Day 3 Anaerobic Blood Culture - Preliminary No Growth Day 3 11/21/18 16:47 Aerobic Blood Culture - Final Blood Venous No Growth Day 5 Anaerobic Blood Culture - Final No Growth Day 5 11/24/18 19:32 Transfusion Reaction Culture - Preliminary Blood Bag No Growth Day 2 Transfusion Reaction Gram Stain - Final 11/24/18 14:07 Transfusion Reaction Culture - Preliminary Blood Bag No Growth Day 2 Transfusion Reaction Gram Stain - Final 11/21/18 11:19 Aerobic Blood Culture - Final Blood Venous No Growth Day 5 Anaerobic Blood Culture - Final No Growth Day 5 11/23/18 09:35 Anaerobic Culture - Preliminary Wound - Hip Left Skin and Soft Tissue MRSA/MSSA (PCR - Final Mrsa Positive S.aureus Positive Gram Stain - Final Wound Culture - Final MRSA 11/22/18 11:50 Skin and Soft Tissue MRSA/MSSA (PCR - Final Buttock Mrsa Negative S.aureus Negative Gram Stain - Final Wound Culture - Final Corynebacterium Striatum Strep Dysgalac (Strep Equisim) Strep Agalactiae - (Group B) Normal Breanna 11/22/18 10:05 Skin and Soft Tissue MRSA/MSSA (PCR - Final Leg Left Mrsa Negative S.aureus Negative Gram Stain - Final Wound Culture - Final Strep Dysgalactiae (Grp C) Prevotella Bivia 11/23/18 22:50 Urine Culture - Final Urine No Growth (<1,000 CFU/mL) Assessment: 1. Chronic osteomyelitis of the proximal left femur with history of resection of the femoral head in the distant past, who was on suppressive doxycycline outpatient. S/P outpatient joint aspiration showing MRSA. S/P left hip joint I+ D with extensive debridement of necrotic soft tissue, POD #4. Afebrile, but continues to have leukocytosis 2. Chronic suprapubic catheter with leukocyte estrase on UA. History of Klebsiella UTIs. Initial urine culture from 11/21/18 with Proteus Mirabilis. Repeat urine culture with no growth. Plan is for catheter to be exchanged by Urology later this morning. 3. DM2. 4. Paraplegia with chronic wounds to the left lower leg and the right hip. Follows with the wound clinic outpatient. Was seen by Dr. Johnson and had sharp debridement of the left LE wound on 11/22/18. Plan: Continue Vancomycin, goal trough 15 to 20; will need 6 weeks, day 4. Weekly labs while on IV ABX (CBC, CRP, CMP, vanco trough)
[2018-11-27] MEDS: DANTROLENE 25 MG PO SCH ×3 (09:15→21:52)
[2018-11-27] MEDS: Apixaban* 5 MG TAB PO SCH ×2 (09:16→21:55)
[2018-11-27] MEDS: Morphine TAB Extended Release (*) 15 MG TAB.ER PO SCH ×2 (09:16→21:57)
[2018-11-27] MEDS: Pregabalin CAP(*) 25 MG PO SCH ×3 (09:17→21:52)
[2018-11-27] MEDS: Magnesium Oxide TAB* 400 MG PO SCH (09:17)
[2018-11-27] MEDS: Atorvastatin* 10 MG TAB PO SCH (09:18)
[2018-11-27] MEDS: Famotidine TAB* 20 MG PO SCH ×2 (09:18→21:54)
[2018-11-27] MEDS ORDERED: Magnesium Sulfate 2 GM IV* 2 GM/50 ML BAG IVPB ONE (09:51)
--- NOTE | 2018-11-27 11:15 | PN ---
Progress Note - Progress Note Date of Service: 11/27/18 SOAP: Subjective: Main complaint is left hip pain He says he is eating well Objective: Temp Pulse Resp BP Pulse Ox 98.1 F 92 17 110/59 94 11/27/18 08:07 11/27/18 08:07 11/27/18 09:17 11/27/18 08:07 11/27/18 08:07 PEX: Right ischial ulcer-necrotic base without abscess or purulence, little evidence of healing. Left lower lateral leg pressure ulcer is clean with mainly pink base, some necrotic tissue around edges, no odor or purulence. Sharp selective debridement of ischial ulcer and left leg ulcer performed at the bedside. Wounds redressed. Assessment: Right ischial pressure ulcer Left lower leg pressure ulcer Debridements done at bedside Plan: Continue Santyl to left leg ulcer. Will change to 1/4 strength Dakins solution wet to dry packing to right ischial ulcer Continue IV abx for left hip cultures.
[2018-11-27] MEDS: Morphine 4 MG/ML VIAL (1 ml) 4 MG/ML VIAL IV PRN (11:17)
[2018-11-27] MEDS: Vancomycin(*) 1,000 MG in NS 0.9% 250 ML* 250 ML IVPB SCH ×2 (11:17→21:59)
[2018-11-27] MEDS: Collagenase 250 MG/GM OINT* 30 GM TOPICAL SCH (11:20)
--- NOTE | 2018-11-27 15:14 | PN ---
Subjective Date of Service: 11/27/18 Interval History: Pt seen and examined. Meds and labs reviewed. CC: N/A ROS: Denied CHEN/dizziness, F/C, N/V, CP, SOB, increased cough, sputum production , abd pain, diarrhea, constipation, dysuria, myalgias, arthralgias, throat pain , and new skin lesions. The rest of the 14 point ROS are unremarkable. PHYSICAL EXAM: GEN APPEARANCE: Awake, not in acute distress HEENT: NC/AT, PERRLA, moist oral mucosa, (-) throat erythema NECK: Soft, supple, (-) cervical LAD, (-)JVD HEART: S1S2 WNL, RRR, No MRG CHEST: CTA, BL, GAE, No W/R/R ABD: Soft, ND/NT, NABS 4x Q (+)supra-pubic catheter EXT: No C/C/L. hip cdi; R. ischial pressure ulcer SKIN: Warm to touch PSYCH: No active psychosis, hallucinations, depression, SI/HI Family History: Unchanged from Admission Social History: Unchanged from Admission Past Medical History: Unchanged from Admission Objective Active Medications: Acetaminophen (Tylenol Tab*) 650 mg PO Q4H PRN PRN Reason: FEVER/PAIN Last Admin: 11/25/18 20:49 Dose: 650 mg Albuterol (Ventolin Hfa Inhaler*) 1 puff INH Q4H PRN PRN Reason: SHORTNESS OF BREATH Apixaban (Eliquis*) 5 mg PO BID [facility] Last Admin: 11/27/18 09:16 Dose: 5 mg Atorvastatin Calcium (Lipitor*) 10 mg PO DAILY [facility] Last Admin: 11/27/18 09:18 Dose: 10 mg Collagenase (Santyl 250 Mg/Gm Oint*) 1 applic TOPICAL DAILY [facility] Last Admin: 11/27/18 11:20 Dose: 1 applic Dantrolene Sodium (Dantrium Cap*) 25 mg PO TID [facility] Last Admin: 11/27/18 14:50 Dose: 25 mg Dextrose (D50w Syringe 50 Ml*) 12.5 gm IV PUSH .FOR FS < 60 - SS PRN PRN Reason: FS < 60 Docusate Sodium (Colace Cap*) 100 mg PO 2100 [facility] Last Admin: 11/26/18 21:15 Dose: 100 mg Famotidine (Pepcid Tab*) 20 mg PO BID [facility] Last Admin: 11/27/18 09:18 Dose: 20 mg Vancomycin HCl 1,000 mg/ (Sodium Chloride) 250 mls @ 166.667 mls/hr IVPB Q12H [facility] Last Admin: 11/27/18 11:17 Dose: Not Given Insulin Human Lispro (Humalog*) 0 units SUBCUT ACHS [facility]; Protocol Last Admin: 11/27/18 12:34 Dose: 3 units Magnesium Oxide (Magox 400 Tab*) 400 mg PO DAILY [facility] Last Admin: 11/27/18 09:17 Dose: 400 mg Melatonin (Melatonin) 3 mg PO BEDTIME [facility] Last Admin: 11/26/18 21:13 Dose: 3 mg Metoprolol Succinate (Toprol Xl Tab*) 50 mg PO BEDTIME [facility] Last Admin: 11/26/18 21:15 Dose: 50 mg Morphine Sulfate (Ms Contin(*)) 15 mg PO Q12HR [facility] Last Admin: 11/27/18 09:16 Dose: 15 mg Morphine Sulfate (Morphine 4 Mg/Ml Vial (1 Ml)) 4 mg IV Q2H PRN PRN Reason: PAIN Last Admin: 11/27/18 11:17 Dose: 4 mg Olanzapine (Zyprexa Tab*) 15 mg PO BEDTIME [facility] Last Admin: 11/26/18 21:21 Dose: 15 mg Pharmacy Consult (Vancomycin Per Pharmacy*) 1 note FOLLOW UP . PRN PRN Reason: PER PROTOCOL Pharmacy Profile Note (Vancomycin Trough Check) 1 note FOLLOW UP ONCE ONE Stop: 11/28/18 09:31 Pregabalin (Lyrica Cap(*)) 25 mg PO TID [facility] Last Admin: 11/27/18 14:40 Dose: 25 mg Senna (Senokot Tab*) 2 tab PO BEDTIME [facility] Last Admin: 11/26/18 21:14 Dose: 2 tab Sodium Hypochlorite (Dakins Solution Half Stre) 1 applic TOPICAL DAILY [facility] Vital Signs - 8 hr 11/27/18 11/27/18 11/27/18 08:00 08:07 09:16 Temperature 98.1 F Pulse Rate 92 Respiratory 14 17 17 Rate Blood Pressure 110/59 (mmHg) O2 Sat by Pulse 95 94 Oximetry 11/27/18 11/27/18 11/27/18 09:17 11:17 11:20 Temperature Pulse Rate Respiratory 17 16 16 Rate Blood Pressure (mmHg) O2 Sat by Pulse Oximetry 11/27/18 11/27/18 12:36 14:40 Temperature Pulse Rate Respiratory 16 16 Rate Blood Pressure (mmHg) O2 Sat by Pulse Oximetry Oxygen Devices in Use Now: None Result Diagrams: 11/27/18 05:50 11/27/18 05:50 Microbiology and Other Data: Microbiology 11/23/18 09:35 Anaerobic Culture - Preliminary Wound - Hip Left Skin and Soft Tissue MRSA/MSSA (PCR - Final Mrsa Positive S.aureus Positive Gram Stain - Final Wound Culture - Preliminary Staphylococcus Aureus 11/22/18 14:07 Gram Stain - Final Misc Source (See Comment) - Suprapubic Wound Culture - Preliminary Proteus Mirabilis 11/22/18 11:50 Skin and Soft Tissue MRSA/MSSA (PCR - Final Buttock Mrsa Negative S.aureus Negative Gram Stain - Final Wound Culture - Preliminary Corynebacterium Striatum Strep Dysgalac (Strep Equisim) Strep Agalactiae - (Group B) 11/22/18 10:05 Skin and Soft Tissue MRSA/MSSA (PCR - Final Leg Left Mrsa Negative S.aureus Negative Gram Stain - Final Wound Culture - Preliminary Strep Dysgalactiae (Grp C) Prevotella Bivia 11/21/18 11:19 Aerobic Blood Culture - Preliminary Blood Venous No Growth Day 3 Anaerobic Blood Culture - Preliminary No Growth Day 3 11/21/18 16:47 Aerobic Blood Culture - Preliminary Blood Venous No Growth Day 2 Anaerobic Blood Culture - Preliminary No Growth Day 2 11/21/18 11:49 Urine Culture - Preliminary Urine Proteus Mirabilis Assess/Plan/Problems-Billing Assessment: Case reviewed and d/w Cheyanne Rios [employer]. Mr Barth is a 53yo M with PMH of paraplegia, left ischial pressure ulcer s/p flap complicated by infection and left hip osteomyelitis requiring femoral head removal, DVT on Eliquis, pressure ulcers, neurogenic bladder with suprapubic catheter, type 2 DM, HTN, bipolar disorder, now residing at [facility], referred to ED due to left hip fluid aspirate growing MRSA. Case d/w Dr Huggins and Dr Menendez - patient has severe sepsis and is admitted to ICU. Will continue fluid resuscitation and Vancomycin. As per admitting [employer], patient's last Eliquis dose was 11/21/18 AM - plan for OR 11/23/18. - Patient Problems (1) Chronic osteomyelitis Current Visit: Yes Status: Acute Code(s): M86.60 - OTHER CHRONIC OSTEOMYELITIS, UNSPECIFIED SITE SNOMED Code(s): 81563367 Comment: #Chronic OM w/L. hip joint infx: -S/P I&D (11/25/18) POD #2 - S/P Left open irrigation and debridement of L. hip joint w/extensive debridement of necrotic soft tissue, POD#4 -D/W Jovana; Continue IV Vanc for 6 weeks, day . Weekly labs while on IV ABX ( CBC, CRP, CMP) (2) Pressure ulcer of right ischium Current Visit: Yes Status: Acute Code(s): L89.319 - PRESSURE ULCER OF RIGHT BUTTOCK, UNSPECIFIED STAGE SNOMED Code(s): 357692344 Comment: -S/P debridement at bedside by Dr. Sanz today, POD#0 -Will defer (3) Elevated troponin Current Visit: Yes Status: Acute Code(s): R74.8 - ABNORMAL LEVELS OF OTHER SERUM ENZYMES SNOMED Code(s): 254359099 Comment: -Likely due to combination of sepsis and demand ischemia due to hypotension -Continue watchful waiting (4) Diabetes 1.5, managed as type 2 Current Visit: Yes Status: Acute Code(s): E13.9 - OTHER SPECIFIED DIABETES MELLITUS WITHOUT COMPLICATIONS SNOMED Code(s): 171573583 Comment: -Well-controlled -Continue ISS -Continue FS monitoring (5) FRANCES (obstructive sleep apnea) Current Visit: Yes Status: Acute Code(s): G47.33 - OBSTRUCTIVE SLEEP APNEA ( ADULT) (PEDIATRIC) SNOMED Code(s): 69325927 Comment: -Suspected FRANCES due to nocturnal desats -Continue CPAP PRN and/or nasal cannula qHS (6) DVT (deep venous thrombosis) Current Visit: No Status: Acute Code(s): I82.409 - ACUTE EMBOLISM AND THOMBOS UNSP DEEP VN UNSP LOWER EXTREMITY SNOMED Code(s): 671243952 Comment: - Left femoral profunda DVT diagnosed 04/30/18. - Continue Apixaban. Status and Disposition: -As above -D/C to [facility] in 1-2 days
[2018-11-27] MEDS ORDERED: NS 0.9% 500 ML* 500 ML IV ONE (17:36)
[2018-11-27] MEDS ORDERED: NS 0.9% 1000 ML** 1,000 ML IV SCH (17:45)
[2018-11-27] MEDS: OLANzapine TAB* 10 MG PO SCH (21:53)
[2018-11-27] MEDS: Docusate CAP* 100 MG PO SCH (21:54)
[2018-11-27] MEDS: Melatonin 3 MG TAB PO SCH (21:54)
[2018-11-27] MEDS: Metoprolol Succinate XL TAB* 50 MG PO SCH (21:55)
[2018-11-27] MEDS: Senna TAB PO SCH (21:56)
[2018-11-28] MEDS: Insulin LISPRO* 1 UNITS UNIT SUBCUT SCH ×4 (08:32→21:53)
--- NOTE | 2018-11-28 09:29 | PN ---
Subjective Date of Service: 11/28/18 Interval History: Pt feels well. c/o pain in left calf chronic pressure ulcer area Family History: Unchanged from Admission Social History: Unchanged from Admission Past Medical History: Unchanged from Admission Objective Active Medications: Acetaminophen (Tylenol Tab*) 650 mg PO Q4H PRN PRN Reason: FEVER/PAIN Last Admin: 11/25/18 20:49 Dose: 650 mg Albuterol (Ventolin Hfa Inhaler*) 1 puff INH Q4H PRN PRN Reason: SHORTNESS OF BREATH Apixaban (Eliquis*) 5 mg PO BID [facility] Last Admin: 11/27/18 21:55 Dose: 5 mg Atorvastatin Calcium (Lipitor*) 10 mg PO DAILY [facility] Last Admin: 11/27/18 09:18 Dose: 10 mg Collagenase (Santyl 250 Mg/Gm Oint*) 1 applic TOPICAL DAILY [facility] Last Admin: 11/27/18 11:20 Dose: 1 applic Dantrolene Sodium (Dantrium Cap*) 25 mg PO TID [facility] Last Admin: 11/27/18 21:52 Dose: 25 mg Dextrose (D50w Syringe 50 Ml*) 12.5 gm IV PUSH .FOR FS < 60 - SS PRN PRN Reason: FS < 60 Docusate Sodium (Colace Cap*) 100 mg PO 2100 [facility] Last Admin: 11/27/18 21:54 Dose: 100 mg Famotidine (Pepcid Tab*) 20 mg PO BID [facility] Last Admin: 11/27/18 21:54 Dose: 20 mg Vancomycin HCl 1,000 mg/ (Sodium Chloride) 250 mls @ 166.667 mls/hr IVPB Q12H [facility] Last Admin: 11/27/18 21:59 Dose: 166.667 mls/hr Insulin Human Lispro (Humalog*) 0 units SUBCUT ACHS [facility]; Protocol Last Admin: 11/28/18 08:32 Dose: Not Given Magnesium Oxide (Magox 400 Tab*) 400 mg PO DAILY [facility] Last Admin: 11/27/18 09:17 Dose: 400 mg Melatonin (Melatonin) 3 mg PO BEDTIME [facility] Last Admin: 11/27/18 21:54 Dose: Not Given Metoprolol Succinate (Toprol Xl Tab*) 50 mg PO BEDTIME [facility] Last Admin: 11/27/18 21:55 Dose: 50 mg Morphine Sulfate (Ms Contin(*)) 15 mg PO Q12HR [facility] Last Admin: 11/27/18 21:57 Dose: Not Given Morphine Sulfate (Morphine 4 Mg/Ml Vial (1 Ml)) 4 mg IV Q2H PRN PRN Reason: PAIN Last Admin: 11/27/18 11:17 Dose: 4 mg Olanzapine (Zyprexa Tab*) 15 mg PO BEDTIME [facility] Last Admin: 11/27/18 21:53 Dose: 15 mg Pharmacy Consult (Vancomycin Per Pharmacy*) 1 note FOLLOW UP . PRN PRN Reason: PER PROTOCOL Pharmacy Profile Note (Vancomycin Trough Check) 1 note FOLLOW UP ONCE ONE Stop: 11/28/18 09:31 Last Admin: 11/28/18 08:34 Dose: Not Given Pregabalin (Lyrica Cap(*)) 25 mg PO TID [facility] Last Admin: 11/27/18 21:52 Dose: 25 mg Senna (Senokot Tab*) 2 tab PO BEDTIME [facility] Last Admin: 11/27/18 21:56 Dose: 2 tab Sodium Hypochlorite (Dakins Solution Half Stre) 1 applic TOPICAL DAILY [facility] Vital Signs - 8 hr 11/28/18 11/28/18 03:27 07:30 Temperature 97.8 F 97.1 F Pulse Rate 87 84 Respiratory 16 Rate Blood Pressure 113/69 115/62 (mmHg) O2 Sat by Pulse 92 Oximetry Oxygen Devices in Use Now: None Appearance: 53 yo M in nAD, aAOx3 Eyes: No Scleral Icterus, PERRLA Ears/Nose/Mouth/Throat: NL Teeth, Lips, Gums, Mucous Membranes Moist Neck: NL Appearance and Movements; NL JVP, Trachea Midline Respiratory: Symmetrical Chest Expansion and Respiratory Effort, Clear to Auscultation Cardiovascular: NL Sounds; No Murmurs; No JVD, RRR Abdominal: NL Sounds; No Tenderness; No Distention, - - suprapubic ath in place , scrotal edema noted Lymphatic: No Cervical Adenopathy Extremities: No Edema, No Clubbing, Cyanosis Skin: - - R ischial ulcer unstageable with slough at bottom of 4 cm deep wound- 5 cm in diam, L hip incision healing -no dehiscence, L calf stage 4 ulcer with visible bone at 5x10 cm -not infected, marigins of wound pink. R knee small abrasion 1 cm. B/l heels ulcers at 2 cm in diam covered with eschar Neurological: Alert and Oriented x 3, - - paraplegic Result Diagrams: 11/27/18 05:50 11/27/18 05:50 Microbiology and Other Data: Microbiology 11/23/18 09:35 Anaerobic Culture - Preliminary Wound - Hip Left Skin and Soft Tissue MRSA/MSSA (PCR - Final Mrsa Positive S.aureus Positive Gram Stain - Final Wound Culture - Preliminary Staphylococcus Aureus 11/22/18 14:07 Gram Stain - Final Misc Source (See Comment) - Suprapubic Wound Culture - Preliminary Proteus Mirabilis 11/22/18 11:50 Skin and Soft Tissue MRSA/MSSA (PCR - Final Buttock Mrsa Negative S.aureus Negative Gram Stain - Final Wound Culture - Preliminary Corynebacterium Striatum Strep Dysgalac (Strep Equisim) Strep Agalactiae - (Group B) 11/22/18 10:05 Skin and Soft Tissue MRSA/MSSA (PCR - Final Leg Left Mrsa Negative S.aureus Negative Gram Stain - Final Wound Culture - Preliminary Strep Dysgalactiae (Grp C) Prevotella Bivia 11/21/18 11:19 Aerobic Blood Culture - Preliminary Blood Venous No Growth Day 3 Anaerobic Blood Culture - Preliminary No Growth Day 3 11/21/18 16:47 Aerobic Blood Culture - Preliminary Blood Venous No Growth Day 2 Anaerobic Blood Culture - Preliminary No Growth Day 2 11/21/18 11:49 Urine Culture - Preliminary Urine Proteus Mirabilis Assess/Plan/Problems-Billing Assessment: Mr Barth is a 53yo M with PMH of paraplegia, left ischial pressure ulcer s/p flap complicated by infection and left hip osteomyelitis requiring femoral head removal, DVT on Eliquis, pressure ulcers, neurogenic bladder with suprapubic catheter, type 2 DM, HTN, bipolar disorder, now residing at [facility], referred to ED due to left hip fluid aspirate growing MRSA. - Patient Problems (1) Chronic osteomyelitis Comment: #Chronic OM w/L. hip joint infx: -S/P I&D (11/25/18) - S/P Left open irrigation and debridement of L. hip joint w/extensive debridement of necrotic soft tissue on 11/23/18 -D/W Jovana; Continue IV Vanc for 6 weeks, Weekly labs while on IV ABX (CBC, CRP, CMP), PICC to be placed today (2) Diabetes 1.5, managed as type 2 Comment: -Well-controlled -Continue ISS -Continue FS monitoring (3) Elevated troponin Comment: -Likely due to combination of sepsis and demand ischemia due to hypotension (4) FRANCES (obstructive sleep apnea) Comment: -Suspected FRANCES due to nocturnal desats -will check overnight pulse ox (5) Pressure ulcer of right ischium Comment: -S/P debridement at bedside by Dr. Sanz 11/27 -cont wound packing with 08/09 Dankin xiomara (6) Anemia Comment: - acute post op on chronic, transfused 3 U PRBC post op, now Hb stable (7) DVT (deep venous thrombosis) Comment: - Left femoral profunda DVT diagnosed 04/30/18. - Continue Apixaban. (8) DVT prophylaxis Comment: apixaban Status and Disposition: Inpatient, d/c to NH after PICC in place
[2018-11-28] MEDS ORDERED: Vancomycin Trough Check NOTE FOLLOW UP ONE (09:30)
[2018-11-28] MEDS: Morphine 4 MG/ML VIAL (1 ml) 4 MG/ML VIAL IV PRN ×4 (09:38→21:28)
[2018-11-28] MEDS: Vancomycin(*) 1,000 MG in NS 0.9% 250 ML* 250 ML IVPB SCH ×2 (10:27→21:30)
[2018-11-28] MEDS: Collagenase 250 MG/GM OINT* 30 GM TOPICAL SCH (10:27)
[2018-11-28] MEDS: Dakins Solution 0.25% (1/2 STR.)* 473 ML BTL TOPICAL SCH (10:27)
[2018-11-28] MEDS: Atorvastatin* 10 MG TAB PO SCH (10:34)
[2018-11-28] MEDS: Magnesium Oxide TAB* 400 MG PO SCH (10:34)
[2018-11-28] MEDS: Pregabalin CAP(*) 25 MG PO SCH ×3 (10:35→21:12)
[2018-11-28] MEDS: Famotidine TAB* 20 MG PO SCH ×2 (10:35→21:15)
[2018-11-28] MEDS: Morphine TAB Extended Release (*) 15 MG TAB.ER PO SCH (10:35)
[2018-11-28] MEDS: DANTROLENE 25 MG PO SCH ×3 (10:35→21:17)
[2018-11-28] MEDS: Apixaban* 5 MG TAB PO SCH ×2 (10:36→21:15)
[2018-11-28] MEDS: Docusate CAP* 100 MG PO SCH (21:13)
[2018-11-28] MEDS: Metoprolol Succinate XL TAB* 50 MG PO SCH (21:13)
[2018-11-28] MEDS: Melatonin 3 MG TAB PO SCH (21:14)
[2018-11-28] MEDS: OLANzapine TAB* 10 MG PO SCH (21:15)
[2018-11-28] MEDS: Senna TAB PO SCH (21:16)
[2018-11-29] MEDS: Insulin LISPRO* 1 UNITS UNIT SUBCUT SCH ×3 (07:58→17:10)
[2018-11-29] MEDS: Atorvastatin* 10 MG TAB PO SCH (08:06)
[2018-11-29] MEDS: Famotidine TAB* 20 MG PO SCH (08:06)
[2018-11-29] MEDS: Pregabalin CAP(*) 25 MG PO SCH ×2 (08:06→12:44)
[2018-11-29] MEDS: DANTROLENE 25 MG PO SCH ×2 (08:06→12:44)
[2018-11-29] MEDS: Apixaban* 5 MG TAB PO SCH (08:06)
[2018-11-29] MEDS: Collagenase 250 MG/GM OINT* 30 GM TOPICAL SCH (08:06)
[2018-11-29] MEDS: Magnesium Oxide TAB* 400 MG PO SCH (08:06)
[2018-11-29] MEDS: Dakins Solution 0.25% (1/2 STR.)* 473 ML BTL TOPICAL SCH (08:38)
--- NOTE | 2018-11-29 08:48 | PN ---
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 Barth is a 53 yo male with PMH significant for paraplegia, neurogenic bladder with suprapubic urinary catheter, DM2, chronic pain, HLD, GERD, Bipolar disorder, HTN, and MRSA osteomyelitis of the left hip. Denies fever, chills, N/V /D, back pain or leg pain. Objective: Vital Signs - 8 hr 11/29/18 11/29/18 11/29/18 07:15 07:27 08:00 Temperature 97.6 F Pulse Rate 89 Respiratory 22 16 Rate Blood Pressure 121/73 (mmHg) O2 Sat by Pulse 98 98 Oximetry Physical Exam: General: NAD, laying in bed Neurological: Alert and Oriented HEENT: No thrush Cardiovascular: Heart rate regular Respiratory: Lungs clear bilateral Abdominal: Bowel sounds present; ABD soft, non tender and non distended Skin: No rash, Dressings to left hip, left lower leg and right buttock intact Laboratory Last Values WBC 11.7 10^3/uL (3.5-10.8) H 11/27/18 05:50 RBC 3.40 10^6 /uL (4.18-5.48) L 11/27/18 05:50 Hgb 8.6 g/dL (14.0-18.0) L 11/27/18 05:50 Hct 27 % (36-46) L 11/27/18 05:50 MCV 79 fL (80-94) L 11/27/18 05:50 MCH 25 pg (27-31) L 11/27/18 05:50 MCHC 32 g/dL (31-36) 11/27/18 05:50 RDW 20 % (10.5-15) H 11/27/18 05:50 Plt Count 419 10^3/uL (150-450) 11/27/18 05:50 MPV 7.8 fL (7.4-10.4) 11/27/18 05:50 Neut % (Auto) 82.4 % 11/27/18 05:50 Lymph % (Auto) 9.7 % 11/27/18 05:50 [place] % (Auto) 4.5 % 11/27/18 05:50 Eos % (Auto) 2.5 % 11/27/18 05:50 Baso % (Auto) 0.9 % 11/27/18 05:50 Absolute Neuts (auto) 9.6 10^3/ul (1.5-7.7) H 11/27/18 05:50 Absolute Lymphs (auto) 1.1 10^3/ul (1.0-4.8) 11/27/18 05:50 Absolute Monos (auto) 0.5 10^3/ul (0-0.8) 11/27/18 05:50 Absolute Eos (auto) 0.3 10^3/ul (0-0.6) 11/27/18 05:50 Absolute Basos (auto) 0.1 10^3/ul (0-0.2) 11/27/18 05:50 Absolute Nucleated RBC 0 10^3/ul 11/27/18 05:50 Nucleated RBC % 0 11/27/18 05:50 ESR 86 mm/Hr (0-19) H 11/25/18 05:30 INR (Anticoag Therapy) 1.41 (0.77-1.02) H 11/21/18 11:18 Sodium 135 mmol/L (135-145) 11/27/18 05:50 Potassium 3.7 mmol/L (3.5-5.0) 11/27/18 05:50 Chloride 108 mmol/L (101-111) 11/27/18 05:50 Carbon Dioxide 25 mmol/L (22-32) 11/27/18 05:50 Anion Gap 2 mmol/L (2-11) 11/27/18 05:50 BUN 8 mg/dL (6-24) 11/27/18 05:50 Creatinine 0.61 mg/dL (0.67-1.17) L 11/27/18 05:50 Est GFR ( Amer) 167.3 (>60) 11/27/18 05:50 Est GFR (Non-Af Amer) 138.3 (>60) 11/27/18 05:50 BUN/Creatinine Ratio 13.1 (8-20) 11/27/18 05:50 Glucose 94 mg/dL (70-100) 11/27/18 05:50 POC Glucose (mg/dL) 132 mg/dL (70-100) H 11/29/18 07:10 Lactic Acid 1.0 mmol/L (0.5-2.0) 11/24/18 14:03 Calcium 8.1 mg/dL (8.6-10.3) L 11/27/18 05:50 Phosphorus 3.5 mg/dL (2.5-5.0) 11/27/18 05:50 Magnesium 1.8 mg/dL (1.9-2.7) L 11/27/18 05:50 Total Bilirubin 0.30 mg/dL (0.2-1.0) 11/27/18 05:50 Direct Bilirubin 0.10 mg/dL (0.03-0.18) 11/22/18 06:00 Indirect Bilirubin 0.2 mg/dL (0.3-1.0) L 11/22/18 06:00 AST 9 U/L (13-39) L 11/27/18 05:50 ALT 6 U/L (7-52) L 11/27/18 05:50 Alkaline Phosphatase 79 U/L (34-104) 11/27/18 05:50 Total Creatine Kinase 75 U/L (10-223) 11/24/18 14:03 CK-MB (CK-2) 5.2 ng/mL (0.6-6.3) 11/24/18 14:03 Troponin I 0.21 ng/mL (<0.04) H* 11/27/18 00:13 C-Reactive Protein 159.32 mg/L (<8.01) H 11/25/18 05:30 B-Natriuretic Peptide 125 pg/mL (<=100) H 11/24/18 08:08 Total Protein 5.4 g/dL (6.4-8.9) L 11/27/18 05:50 Albumin 1.8 g/dL (3.2-5.2) L 11/27/18 05:50 Globulin 3.6 g/dL (2-4) 11/27/18 05:50 Albumin/Globulin Ratio 0.5 (1-3) L 11/27/18 05:50 Urine Color Yellow 11/23/18 22:50 Urine Appearance Turbid 11/23/18 22:50 Urine pH 6.0 (5-9) 11/23/18 22:50 Ur Specific [place] 1.014 (1.010-1.030) 11/23/18 22:50 Urine Protein 1+(30 mg/dl) (Negative) A 11/23/18 22:50 Urine Ketones Negative (Negative) 11/23/18 22:50 Urine Blood 1+ (Negative) A 11/23/18 22:50 Urine Nitrate Negative (Negative) 11/23/18 22:50 Urine Bilirubin Negative (Negative) 11/23/18 22:50 Urine Urobilinogen Negative (Negative) 11/23/18 22:50 Ur Leukocyte Esterase 3+ (Negative) A 11/23/18 22:50 Urine WBC (Auto) 3+(>20/hpf) (Absent) A 11/23/18 22:50 Urine RBC (Auto) 3+(>10/hpf) (Absent) A 11/23/18 22:50 Urine Bacteria Absent (Absent) 11/23/18 22:50 Urine Glucose Negative (Negative) 11/23/18 22:50 Urine Ascorbic Acid * (Negative) A 11/23/18 22:50 Vancomycin Trough 19.7 mcg/mL 11/28/18 06:24 Random Vancomycin 19.6 mcg/mL 11/26/18 06:01 HIV 1&2 Antibody Rapid Nonreactive (Nonreactive) 11/23/18 18:41 Blood Type B Positive 11/22/18 06:00 Antibody Screen Negative 11/22/18 06:00 Crossmatch See Detail 11/22/18 06:00 Transfusion React Rpt 11/24/18 19:42 Donor Unit # [id number] 11/24/18 19:42 Post-Trans Blood Type B Positive 11/24/18 19:42 Post-Trans MERARI 1+ 11/24/18 19:42 Reaction Interpretation 11/24/18 19:42 Microbiology 11/23/18 21:17 Aerobic Blood Culture - Final Blood Venous No Growth Day 5 Anaerobic Blood Culture - Final No Growth Day 5 11/24/18 19:32 Transfusion Reaction Culture - Preliminary Blood Bag No Growth Day 4 Transfusion Reaction Gram Stain - Final 11/24/18 14:07 Transfusion Reaction Culture - Preliminary Blood Bag No Growth Day 4 Transfusion Reaction Gram Stain - Final 11/23/18 09:35 Anaerobic Culture - Final Wound - Hip Left Skin and Soft Tissue MRSA/MSSA (PCR - Final Mrsa Positive S.aureus Positive Gram Stain - Final Wound Culture - Final MRSA 11/22/18 14:07 Gram Stain - Final Misc Source (See Comment) - Suprapubic Wound Culture - Final Proteus Mirabilis 11/21/18 11:49 Urine Culture - Final Urine Proteus Mirabilis 11/21/18 16:47 Aerobic Blood Culture - Final Blood Venous No Growth Day 5 Anaerobic Blood Culture - Final No Growth Day 5 11/21/18 11:19 Aerobic Blood Culture - Final Blood Venous No Growth Day 5 Anaerobic Blood Culture - Final No Growth Day 5 11/22/18 11:50 Skin and Soft Tissue MRSA/MSSA (PCR - Final Buttock Mrsa Negative S.aureus Negative Gram Stain - Final Wound Culture - Final Corynebacterium Striatum Strep Dysgalac (Strep Equisim) Strep Agalactiae - (Group B) Normal Breanna 11/22/18 10:05 Skin and Soft Tissue MRSA/MSSA (PCR - Final Leg Left Mrsa Negative S.aureus Negative Gram Stain - Final Wound Culture - Final Strep Dysgalactiae (Grp C) Prevotella Bivia 11/23/18 22:50 Urine Culture - Final Urine No Growth (<1,000 CFU/mL) Assessment: 1. Chronic osteomyelitis of the proximal left femur with history of resection of the femoral head in the distant past, who was on suppressive doxycycline outpatient. S/P outpatient joint aspiration showing MRSA. S/P left hip joint I+ D with extensive debridement of necrotic soft tissue, POD #6. Afebrile, but continues to have leukocytosis that is trending down. CRP remains elevated. 2. Chronic suprapubic catheter with leukocyte estrase on UA. History of Klebsiella UTIs. Initial urine culture from 11/21/18 with Proteus Mirabilis. Repeat urine culture with no growth. Catheter was exchanged by Urology 2 days ago. 3. DM2. 4. Paraplegia with chronic wounds to the left lower leg and the right hip. Follows with the wound clinic outpatient. Was seen by Dr. Johnson and had sharp debridement of the left LE wound on 11/22/18. He was seen by Dr. Sanz on and had sharp debridement of the right ischium. Plan: Continue Vancomycin, goal trough 15 to 20; will need 6 weeks total of IV ABX, day . Weekly labs while on IV ABX (CBC, CRP, CMP, vanco trough). Will need to have a PICC line placed. If he is going home today recommend Vancomycin 750 mg IV every 12 hours and recheck vanco trough on Sunday or Sunday next week. If he stays overnight, recommend Vanco dosing based on the trough due to be drawn in the AM. Follow up with ID in about 2 weeks outpatient.
[2018-11-29] MEDS: Vancomycin(*) 1,000 MG in NS 0.9% 250 ML* 250 ML IVPB SCH (10:14)
[2018-11-29] MEDS: Morphine 4 MG/ML VIAL (1 ml) 4 MG/ML VIAL IV PRN (12:50)
--- NOTE | 2018-11-29 15:06 | DS ---
CC: Dr. Menendez; Dr. Young; Dr. Sanz, W[facility]; [facility]. DISCHARGE SUMMARY: DATE OF ADMISSION: 11/21/18 DATE OF ANTICIPATED DISCHARGE: 11/29/18 PRIMARY CARE PROVIDER: Provider from [facility]. DISCHARGE DIAGNOSES: 1. Chronic osteomyelitis of the proximal left femur with history of resection of the femoral head in the distant past and the patient was on suppressive doxycycline treatment, patient's joint aspiration showing methicillin- resistant Staphylococcus aureus. The patient is status post left hip joint I and D with extensive debridement of the necrotic soft tissue performed on by Dr. Menendez. 2. 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 3. Acute hemorrhagic anemia, periop, status post 3 units of packed red blood cells transfusion during the patient's hospital stay. SECONDARY DIAGNOSES: 1. Paraplegia secondary to ischemic stroke, as per patient, likely affecting spinal cord with subsequent, as mentioned above, paraplegia and neurogenic bladder. 2. 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 3. Chronic pain. 4. History of deep vein thrombosis. 5. History of B12 deficiency. 6. History of chronic pressure skin ulcer stage IV, down to the bone and left calf, unstageable on the right ischium, status post debridement by Dr. Sanz on 11/25/18 at our hospital. The patient also has unstageable covered with eschar bilateral heel ulcers. 7. Dyslipidemia. 8. Vitamin D deficiency. 9. Gastroesophageal reflux disease. 10. Status post suprapubic catheter in place. 11. Diabetes type 2. 12. History of pancreatitis. 13. Bipolar disease. 14. History of hypertension. 15. History of suicidal ideation in the past. 16. History of posterior cervical fusion. 17. History of transurethral resection of prostate. 18. Left hip surgery, as mentioned above. MEDICATIONS AT DISCHARGE: Include: 1. Vancomycin IV 750 mg every 12 hours for total of 36 days to complete 42 days of treatment. 2. Albuterol inhaler on a p.r.n. basis. 3. Vitamin C 1000 units daily. 4. Lipitor 10 mg daily. 5. TwoCal supplement 120 mL a.c. and h.s. 6. Lipitor 10 mg daily. 7. Vitamin D3 8000 units daily. 8. Pepcid 20 mg b.i.d. 9. Mag-Ox 400 mg daily. 10. Melatonin 3 mg at bedtime. 11. Metformin 500 mg b.i.d. 12. Metoprolol succinate 50 mg at bedtime. 13. Morphine oral concentrate 5 mg in 0.25 mL every 2 hours p.r.n. 14. MS Contin 15 mg every 12 hours. 15. Zyprexa 15 mg at bedtime. 16. Senna 2 tablets at bedtime. 17. Zanaflex 4 mg 4 times a day p.r.n. 18. Acetaminophen on p.r.n. basis. 19. Eliquis 5 mg b.i.d. 20. Santyl ointment to apply to wound of the left calf with dressing changes every other day or if soiled. 21. One-fourth of Dakin's Solution apply to wound dressings and packing of the right ischial wound with changes daily. 22. Colace 100 mg twice a day. 23. Lyrica 25 mg 3 times a day. FOLLOWUP APPOINTMENT: The patient is scheduled with Wound Care appointment on 12/04/18 at 9:30 a.m. The patient is to be scheduled for followup appointment with Dr. Young in [address] Menendez requested to have her office called and schedule an appointment in approximately 2 weeks for a followup. WOUND CARE ORDERS: One-fourth of Dakin's Solution wet to dry packing to right ischial ulcer daily. Left hip, protect from decubiti with turning position every 2 hours. Left calf, Santyl, cover with Vaseline gauze and cover with 4x4s, change every other day or if soiled. Please have the patient wear bilateral heel protectors. LABORATORY ORDERS: Weekly vancomycin trough, CMPs, CBCs, and CRPs when on IV antibiotics and please send this report to Dr. Young and to patient's primary care provider. LABORATORY DATA AND STUDIES PERFORMED DURING THE HOSPITAL STAY: Included: On , white blood cell count 11.7, hemoglobin of 8.6, hematocrit of 27, MCV of 79, and platelets of 419. On 11/27/18, sodium of 135, potassium 3.7, chloride 108, carbon dioxide 25, BUN 8, creatinine 0.61. Liver function tests unremarkable. Please note the patient's troponins have been elevated during the hospital stay in the range of 0.23 to 0.21. His albumin was low at 1.8 on 11/27/18. Microbiology studies showed MRSA positive wound cultures of the soft tissues of the left hip. Cultures of the wound on the buttock positive for Corynebacterium strep dysgalactiae as well as "normal adonay." Cultures from left calf wound positive for Prevotella. MRSA negative. Positive for strep group C. Urine culture positive for Proteus mirabilis on . The patient's catheter was changed approximately on 11/25/18 with resultant urine cultures after catheter change negative for any bacteria. Portable chest x-ray, last obtained on 11/24/18, impression: "Mild vascular congestion without change since 11/23/18." Hip x-ray obtained on 11/21/18, impression: "Again, noted advanced erosive changes of left hip similar to the CT on 11/01/18." CONSULTATIONS DURING THE HOSPITAL STAY: Included: 1. Dr. Young from infectious Diseases. 2. Dr. Menendez from Orthopedic Surgery. 3. Dr. Sanz from General Surgery/Wound Care. PROCEDURES PERFORMED: 1. I and D of the left hip chronic osteomyelitis, performed by Dr. Menendez on . 2. Sharp debridement by the bedside, performed on 11/25/[address] Sanz of the right ischial wound. HOSPITAL COURSE: Gabriel Barth is a 53-year-old unfortunate male with history of paraplegia, which as per patient is due to spinal cord stroke, which occurred when he was sleeping. The patient has history of MRSA, left hip osteomyelitis, status post left femoral head removal in the past. He has history of neurogenic bladder with suprapubic catheter in place and recurrent Klebsiella UTIs. The patient also has history of chronic pain and has been put on narcotics. He is a resident of [facility]. He had an outpatient hip aspiration on the left side, which was positive for MRSA. He was admitted on 11/21/18 and subsequently on 11/23/18, he was taken to the OR by Dr. Menendez for I and D of the left hip. As expected, cultures of the material obtained intraoperatively were positive for MRSA. The patient was seen by the Infectious Disease specialist who recommended vancomycin for a total of 6 weeks. He received so far 6 days of treatment during the hospital stay. Please also note that patient has history of suprapubic catheter in place. His initial cultures were positive for Proteus, but the catheter was exchanged by Urology approximately 3 days prior to patient's discharge, and his repeat urine cultures were negative. Postoperatively, he developed anemia with hemoglobin dropping to 6. He received 3 units of packed red blood cells transfusion throughout his hospital stay and he normalized to his baseline mild microcytic anemia with hemoglobin level of 8.6 by the time of discharge. The patient has plans to go back to [facility] today after his PICC line is inserted for his continuation of vancomycin infusion for another 36 days. Wound Care as well as follow up appointments are needed to be scheduled as above. PHYSICAL EXAM: At the time of discharge, blood pressure of 121/73, heart rate of 89 and regular, respiratory rate 22, oxygen saturation 98% on room air, temperature 97.6. General: The patient is a pleasant 53-year-old male, who is in no acute distress, alert, awake, and oriented x3. HEENT: Head: Atraumatic and normocephalic. Eyes: Pupils are equal, round, reactive to light and accommodation. Oropharynx is clear. Mucosa is moist. Neck: Supple. No JVD. No bruits bilaterally. Cardiovascular: Regular rate and rhythm. No murmur. Respiratory: Clear to auscultation bilaterally. Abdomen: Soft and nontender. Bowel sounds are present in all 4 quadrants. Suprapubic catheter noted in place. The patient has scrotal edema. Extremities: There is no edema. Pulse + 2 bilaterally. There is no clubbing, no cyanosis. The patient has bilateral heel decubiti that are unstageable due to being covered with eschar, both of them approximately 2 cm in diameter. The patient has large decubitus on the left calf, approximately 10 x 5 cm with exposed bone, stage IV, noted draining and wound margins are clean. The patient also has decubitus on his right ischium of approximately 4 cm in depth, 5 cm in diameter, unstageable due to slough covering the bottom of the wound. The wound is draining serous material. There is no surrounding cellulitis noted. The left postoperative hip area has healed well with no evidence of dehiscence, no evidence of wound fluctuation, and no evidence of cellulitis. On neuro evaluation, the patient is paraplegic from his waist down. Please also note that the patient had nocturnal desaturation and needed oxygen nightly. Due to this, overnight pulse oximetry was performed the night prior to discharge. The patient was noted to have oxygen saturation of below 90% when sleeping on room air for 46% of the time. At that point, the patient was diagnosed with nocturnal hypoxemia, likely due to obstructive sleep apnea and recommended to be on oxygen at night at 2 L. Please note that this is a short summary of the patient's hospital stay. Please refer to further medical records for details. TIME SPENT: Approximately 50 minutes was spent on the patient's discharge. [id number]/[facility] #: [id number] HUGO
[2018-11-29] MEDS: Acetaminophen TAB* 325 MG PO PRN (15:40)
[2018-11-29 16:26] VITALS: BP 139/80
[2018-11-30] MEDS ORDERED: Vancomycin Trough Check NOTE FOLLOW UP ONE (09:30)
== END 2018-11-29 17:30 | DRG 853 ==
LOC: ED 10:27 → ICU 13:42 → SSU 11-23 17:20 → MEDTELE 11-24 16:12
PROVIDERS: ADMIT Internal Medicine; ATTEND Internal Medicine
PROC: 5A09357 Assistance with Respiratory Ventilation, Less than 24 Consecutive Hours, Continuous Positive Airway Pressure (ICD-10-PCS; 2018-11-22)
PROC: 0QB70ZZ Excision of Left Upper Femur, Open Approach (ICD-10-PCS; principal; 2018-11-23 07:30)
PROC: 30233N1 Transfusion of Nonautologous Red Blood Cells into Peripheral Vein, Percutaneous Approach (ICD-10-PCS; 2018-11-24)
PROC: 0T2BX0Z Change Drainage Device in Bladder, External Approach (ICD-10-PCS; 2018-11-25)
PROC: 02HV33Z Insertion of Infusion Device into Superior Vena Cava, Percutaneous Approach (ICD-10-PCS; 2018-11-29)
DX: A41.02 Sepsis due to Methicillin resistant Staphylococcus aureus (principal); L89.624 Pressure ulcer of left heel, stage 4; G93.41 Metabolic encephalopathy; M86.652 Other chronic osteomyelitis, left thigh; G82.20 Paraplegia, unspecified; D62 Acute posthemorrhagic anemia; E11.9 Type 2 diabetes mellitus without complications; E78.00 Pure hypercholesterolemia, unspecified; I10 Essential (primary) hypertension; K21.9 Gastro-esophageal reflux disease without esophagitis; H54.8 Legal blindness, as defined in USA; F32.9 Major depressive disorder, single episode, unspecified; E78.5 Hyperlipidemia, unspecified; N31.9 Neuromuscular dysfunction of bladder, unspecified; I87.8 Other specified disorders of veins; R74.8 Abnormal levels of other serum enzymes; L89.310 Pressure ulcer of right buttock, unstageable; R65.20 Severe sepsis without septic shock; G89.4 Chronic pain syndrome; L89.159 Pressure ulcer of sacral region, unspecified stage; B96.4 Proteus (mirabilis) (morganii) as the cause of diseases classified elsewhere; E55.9 Vitamin D deficiency, unspecified; G47.33 Obstructive sleep apnea (adult) (pediatric); R07.9 Chest pain, unspecified; Z88.5 Allergy status to narcotic agent; Z86.14 Personal history of Methicillin resistant Staphylococcus aureus infection; Z87.891 Personal history of nicotine dependence; Z86.718 Personal history of other venous thrombosis and embolism; Z98.1 Arthrodesis status; Z87.440 Personal history of urinary (tract) infections; Z79.01 Long term (current) use of anticoagulants; Z79.84 Long term (current) use of oral hypoglycemic drugs
CPT/HCPCS: 36415; 71045; 80048; 80053; 80202; 81003; 81015; 82248; 82550; 82553; 82565; 83605; 83735; 83880; 84100; 84484; 84520; 85014; 85018; 85025; 85027; 85610; 85652; 86078; 86140; 86703; 86850; 86900; 86901; 86922; 87040; 87070; 87073; 87076; 87077; 87086; 87184; 87186; 87205; 87640; 87641; 93005; 93306; 94660; 94762; 99285; A9270-GY; C1751; C8929; G8978-GP-CN; G8979-GP-CN; G8980-GP-CN; J0692; J0696; J2270; J2405; J2704; J2765; J3370; J3475; J3490; P9040

== ENCOUNTER 2018-11-29 18:31 | Inpatient (IN) | payer MEDICARE ==
--- NOTE | 2018-11-29 18:58 | ED ---
Complex/Multi-Sys Presentation - HPI Summary HPI Summary: The patient is a 53 y/o M presenting to [facility] with a chief complaint of PICC line coming out of right arm within the last hour. He was discharged from [facility] about an hour [facility] for chronic MRSA infection in the left hip. While here, he had a PICC line placed. When he returned to [facility], the staff went to give him a Vancomycin infusion but noticed that the line had mostly fallen out. He has no other complaints at this time. - History Of Current Complaint Chief Complaint: EDGeneral Time Seen by Provider: 11/29/18 18:45 Hx Obtained From: Patient Onset/Duration: Sudden Onset, Lasting Minutes, Still Present Timing: Minutes Severity Currently: Moderate Severity Initially: Moderate Aggravating Factor(s): none Alleviating Factor(s): none Associated Signs And Symptoms: Negative: Fever - Allergies/Home Medications Allergies/Adverse Reactions: Allergies Allergy/AdvReac Type Severity Reaction Status Date / Time oxycodone [From Percocet] Allergy Itching Verified 11/19/18 11:04 PMH/Surg Hx/FS Hx/Imm Hx Endocrine/Hematology History: Reports: Hx Diabetes - diet controlled, no meds, Hx Anemia Cardiovascular History: Reports: Hx Hypercholesterolemia, Hx Hypertension GI History: Reports: Hx Gastroesophageal Reflux Disease History: Denies: Hx Renal Disease Musculoskeletal History: Reports: Other Musculoskeletal History - Paralysis Sensory History: Reports: Hx Contacts or Glasses, Hx Glaucoma, Hx Legally Blind , Hx Vision Problem Denies: Hx Hearing Aid Opthamlomology History: Reports: Hx Contacts or Glasses, Hx Glaucoma, Hx Legally Blind, Hx Vision Problem Neurological History: Reports: Other Neuro Impairments/Disorders - Positive paralysis Psychiatric History: Reports: Hx Depression Denies: Hx Eating Disorder - Surgical History Surgery Procedure, Year, and Place: VENTRICULOPERITONEAL SHUNT, ABDOMINAL SURGERY WITH INSERTION OF SUPRAPUBIC CATHETER, TRANSURETHRAL RESECTION OF THE PROSTATE, URETEROSTOMY Infectious Disease History: Yes Infectious Disease History: Reports: Hx of Known/Suspected MRSA Denies: Traveled Outside the [place] in Last 30 Days - Family History Known Family History: Negative: Respiratory Disease, Seizure Disorder, Blood Disorder - Social History Alcohol Use: None Hx Substance Use: No Substance Use Type: Reports: None Hx Tobacco Use: Yes Smoking Status (MU): Former Smoker Review of Systems Negative: Fever Positive: Other - PICC line out of arm All Other Systems Reviewed And Are Negative: Yes Physical Exam - Summary Physical Exam Summary: VITAL SIGNS: Reviewed. GENERAL: Patient is a well-developed and nourished male who is lying comfortable in the stretcher. Patient is not in any acute respiratory distress. HEAD AND FACE: No signs of trauma. No ecchymosis, hematomas or skull depressions. No sinus tenderness. EYES: PERRLA, EOMI x 2, No injected conjunctiva, no nystagmus. EARS: Hearing grossly intact. Ear canals and tympanic membranes are within normal limits. MOUTH: Oropharynx within normal limits. NECK: Supple, trachea is midline, no adenopathy, no JVD, no carotid bruit, no c- spine tenderness, neck with full ROM. CHEST: Symmetric, no tenderness at palpation LUNGS: Clear to auscultation bilaterally. No wheezing or crackles. CVS: Regular rate and rhythm, S1 and S2 present, no murmurs or gallops appreciated. ABDOMEN: Soft, non-tender. No signs of distention. No rebound no guarding, and no masses palpated. Bowel sounds are normal. EXTREMITIES: FROM in all major joints, no edema, no cyanosis or clubbing. NEURO: Alert and oriented x 3. No acute neurological deficits. Speech is normal and follows commands. SKIN: Dry and warm Triage Information Reviewed: Yes Vital Signs On Initial Exam: Initial Vitals Temp Pulse Resp BP Pulse Ox 98.2 F 113 16 159/91 94 11/29/18 18:34 11/29/18 18:34 11/29/18 18:34 11/29/18 18:34 11/29/18 18:34 Vital Signs Reviewed: Yes Diagnostics - Vital Signs Vital Signs Temp Pulse Resp BP Pulse Ox 11/29/18 18:34 98.2 F 113 16 159/91 94 - Laboratory Lab Statement: Any lab studies that have been ordered have been reviewed, and results considered in the medical decision making process. Complex Multi-Symp Course/Dx Assessment/Plan: The patient is a 53 y/o M presenting to [facility] with a chief complaint of PICC line coming out of right arm within the last hour. He was discharged from [facility] about an hour [facility] for chronic MRSA infection in the left hip. While here, he had a PICC line placed. When he returned to [facility], the staff went to give him a Vancomycin infusion but noticed that the line had mostly fallen out. He has no other complaints at this time. We obtained a peripheral line, and we gave the patient vancomycin. At this point I discussed my physical exam with Dr. Quintero from the hospital services who accepted the patient for admission. - Diagnoses Provider Diagnoses: Chronic infection of left hip, currently on antibiotics - Physician Notifications Discussed Care Of Patient With: Sebastián Quintero - hospitalist Time Discussed With Above Provider: 19:00 Instructed by Provider To: Other - I consulted with Dr. Quintero, who accepts the patient for admission to [facility] because of the need for PICC line placement. Discharge - Sign-Out/Discharge Documenting (check all that apply): Patient Departure - Patient will be admitted to [facility] for further care. Patient Received Moderate/Deep Sedation with Procedure: No - Discharge Plan Condition: Stable Disposition: ADMITTED TO [facility] Referrals: Zoie Alexander [Primary Care Provider] - - Billing Disposition and Condition Condition: STABLE Disposition: Admitted to [facility] - Attestation Statements Document Initiated by Breonna: Yes Documenting Scribe: Coral Mcneill Provider For Whom Breonna is Documenting (Include Credential): Dr. Gen Call MD Scribe Attestation: I, Coral Mcneill, scribed for Dr. Gen Call MD on 11/29/18 at 2057. Scribe Documentation Reviewed: Yes Provider Attestation: The documentation as recorded by the Coral herrera accurately reflects the service I personally performed and the decisions made by me, Dr. Gen Call MD Status of Scribe Document: Ready
[2018-11-29] MEDS ORDERED: Acetaminophen TAB* 325 MG PO PRN (20:24)
[2018-11-29] MEDS ORDERED: Albuterol HFA INHALER* 8 gm MDI INH PRN (20:59)
[2018-11-29] MEDS ORDERED: tiZANidine TAB* 2 MG PO PRN (20:59)
[2018-11-29] MEDS ORDERED: Docusate CAP* 100 MG PO SCH (21:00)
[2018-11-29] MEDS ORDERED: [UNRECOGNIZED DRUG - OTHER] IV SCH (21:00)
[2018-11-29] MEDS ORDERED: DEXTROSE IV SCH (21:00)
[2018-11-29] MEDS ORDERED: VANCOMYCIN HCL IV SCH (21:00)
[2018-11-29] MEDS ORDERED: Dextrose 50% Syringe 50 ML* 25 GM/50 ML SYRINGE IV PUSH PRN (21:28)
[2018-11-29] MEDS ORDERED: Cefepime 2 GM in Dextrose(*) 2 GM/50 ML BAG IV ONE (21:49)
[2018-11-29 22:20] LABS: Urine Appearance Cloudy; Urine Bacteria 1+ (Absent); Urine Bilirubin Negative (Negative); Urine Blood 2+ (Negative); Urine Color Yellow; Urine Glucose Negative (Negative); Urine Ketones Negative (Negative); Urine Nitrite Negative (Negative); Urine Protein Negative (Negative); Urine Red Blood Cell 3+(>10/hpf) (Absent); Urine Specific Gravity 1.008 (1.010-1.030); Urine Urobilinogen Negative (Negative); Urine White Blood Cell 3+(>20/hpf) (Absent)
[2018-11-29 22:21] LABS: Albumin 2.3 g/dL (3.2-5.2); Albumin/Globulin Ratio 0.5 (1-3); BUN/Creatinine Ratio 11.6 (8-20); Calcium 7.9 mg/dL (8.6-10.3); EGFR African American 145.1 (>60); EGFR Non-African American 119.9 (>60); Globulin 4.5 g/dL (2-4); Potassium 3.6 mmol/L (3.5-5.0); Total Bilirubin 0.3 mg/dL (0.2-1.0); Total Protein 6.8 g/dL (6.4-8.9)
[2018-11-29] MEDS ORDERED: NS 0.9% 1000 ML** 3,000 ML IV ONE (22:22)
[2018-11-29 22:24] LABS: ABS Basophils 0.1 10^3/ul (0-0.2); ABS Eosinophils 0.3 10^3/ul (0-0.6); ABS Lymphocytes 1.4 10^3/ul (1.0-4.8); ABS Monocytes 0.5 10^3/ul (0-0.8); ABS Neutrophils 10.4 10^3/ul (1.5-7.7); ABS Nucleated RBC 0 10^3/ul; Hematocrit 31 % (36-46); Hemoglobin 9.6 g/dL (14.0-18.0); Lymphocyte % 10.9 %; Mean Corpuscular HGB Conc 31 g/dL (31-36); Mean Corpuscular Hemoglobin 25 pg (27-31); Mean Corpuscular Volume 79 fL (80-94); Mean Platelet Volume 7.5 fL (7.4-10.4); Nucleated Red Blood Cells % 0; Platelet Count 513 10^3/uL (150-450); Red Cell Distribution Width 20 % (10.5-15); White Blood Count 12.7 10^3/uL (3.5-10.8)
[2018-11-29] MEDS ORDERED: Vancomycin per Pharmacy* NOTE FOLLOW UP PRN (22:59)
[2018-11-29] MEDS ORDERED: Levofloxacin 750 MG IVPREMIX(* 750 MG/150 ML BAG IVPB SCH (23:00)
[2018-11-30] MEDS: Morphine ORAL CONCENTRATE* 5 MG/0.25 ML ORAL.SYRIN PO PRN ×3 (00:19→21:26)
[2018-11-30] MEDS: Vancomycin(*) 1,000 MG in NS 0.9% 250 ML* 250 ML IVPB SCH ×3 (00:39→22:35)
[2018-11-30] MEDS: Metoprolol Succinate XL TAB* 50 MG PO SCH ×2 (00:46→21:27)
[2018-11-30] MEDS: Pregabalin CAP(*) 25 MG PO SCH ×4 (00:46→21:29)
[2018-11-30] MEDS: Famotidine TAB* 20 MG PO SCH ×3 (00:47→21:29)
[2018-11-30] MEDS: Melatonin 3 MG TAB PO SCH ×2 (00:47→21:27)
[2018-11-30] MEDS: Morphine TAB Extended Release (*) 15 MG TAB.ER PO SCH ×3 (00:47→21:28)
[2018-11-30] MEDS: Apixaban* 5 MG TAB PO SCH ×3 (00:47→21:27)
[2018-11-30] MEDS: OLANzapine TAB* 10 MG PO SCH ×2 (00:48→21:27)
[2018-11-30] MEDS: Senna TAB PO SCH ×2 (00:51→21:27)
[2018-11-30] MEDS: Docusate CAP* 100 MG PO SCH ×2 (00:51→21:28)
--- NOTE | 2018-11-30 03:21 | HP ---
CC: [facility]* HISTORY AND PHYSICAL: DATE OF ADMISSION: 11/29/18 PROVIDER: Jeanine Hauser NP. PRIMARY CARE PROVIDER: Fahad. ATTENDING PHYSICIAN WHILE IN THE HOSPITAL: Karma Dias DO* (dictated by Jeanine Hauser NP). CHIEF COMPLAINT: Need for IV antibiotics for chronic osteomyelitis, PICC line displaced. HISTORY OF PRESENT ILLNESS: Mr. 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 Sanz on 11/25/18. The patient also has unstageable, covered with eschar, bilateral heel ulcers. The patient was admitted on 11/21/18 and discharged on 11/29/18 to [facility] for chronic osteomyelitis of the proximal left femur with a history of resection of the femoral head in the distant past. The patient had a joint aspiration showing MRSA. The patient had an I and D of the left hip with extensive debridement of the necrotic tissue, performed on 11/23/[address] Menendez. The patient was also found to have Klebsiella pneumoniae in the urinary tract infection as he does have chronic indwelling Connor catheter. He also had a hemorrhagic anemia perioperative, required transfusion during this hospital stay. Please refer to discharge summary from 11/29/18 for complete details. The patient was stable for discharge home today, he was discharged back to [facility], and upon arrival to [facility], it was found that the patient's PICC line had been pulled out, so they brought him back to the emergency room because he requires vancomycin IV q.12 hours and they would be unable to continue his IV antibiotics. While in the emergency room, the patient had vital signs and was going to be readmitted for IV antibiotics as [facility] was unable to infuse vancomycin through a peripheral IV. The patient was found to be tachycardic and ultimately found to have a temperature of 101.4, and due to the tachycardia and fever, he met sepsis criteria. He had a full sepsis workup in the emergency room with CBC, CMP, lactic acid, blood cultures, urine culture, and a chest x- ray. At this time, the patient will be admitted inpatient for IV antibiotics for his osteomyelitis as well as sepsis. PAST MEDICAL HISTORY: Significant for: 1. Paraplegia secondary to ischemic stroke. 2. Chronic osteomyelitis of the left hip, status post debridement on 11/23/18. 3. Chronic pain. 4. History of DVT. 5. History of vitamin B12 deficiency. 6. History of chronic pressure ulcer, stage IV, down to the bone on left calf, unstageable on the right ischium, status post debridement with Dr. Sanz on 11/25/18, unstageable, covered with eschar bilateral heel ulcers. 7. Dyslipidemia. 8. Vitamin D deficiency. 9. GERD. 10. Suprapubic catheter placement. 11. Type 2 diabetes. 12. History of pancreatitis. 13. Bipolar. 14. Hypertension. 15. Suicidal ideation in the past. 16. History of posterior cervical fusion. 17. Recent history of Klebsiella pneumoniae urinary tract infection during his hospitalization. 18. Perioperative hemorrhagic anemia requiring 2 units of blood. 19. History of transurethral resection of the prostate. 20. Left hip surgery. DISCHARGE MEDICATIONS: 1. Vancomycin IV 750 mg every 12 hours - complete 42 days of treatment. 2. Albuterol inhaler p.r.n. 3. Vitamin C 1000 units p.o. daily. 4. Lipitor 10 mg p.o. daily. 5. TwoCal supplement 120 mL a.c. and h.s. 6. Vitamin D3 8000 units daily. 7. Pepcid 20 mg p.o. b.i.d. 8. Magnesium oxide 400 mg p.o. daily. 9. Melatonin 3 mg at bedtime. 10. Metformin 500 mg p.o. b.i.d. 11. Metoprolol succinate 50 mg at bedtime. 12. Morphine oral concentrate 5 mg in 0.25 mL every 2 hours as needed for pain. 13. MS Contin 15 mg every 12 hours. 14. Zyprexa 15 mg at bedtime. 15. Senna 2 tablets at bedtime. 16. Zanaflex 4 mg 4 times a day p.r.n. spasms. 17. Acetaminophen as needed. 18. Eliquis 5 mg p.o. b.i.d. 19. Santyl ointment apply to wounds on the left calf with dressing changes every other day or if soiled. 20. One-fourth Dakin solution, apply to wound, dressings and packing to the right ischial wound with changes daily. 21. Colace 100 mg twice daily. 22. Lyrica 25 mg 3 times daily. ALLERGIES: OXYCODONE. FAMILY HISTORY: The patient was adopted, unknown family history. SOCIAL HISTORY: No smoking, alcohol, or illicit drug use. He currently resides at [facility]. Surrogate decision maker and healthcare proxy were not listed. Person to notify is his mother, Eugenie Barth. He is a full code. REVIEW OF SYSTEMS: The patient denies any chills or fever. Denies any double vision or ear discharge. Denies any nausea, vomiting, or diarrhea. He does report that he has had dry productive cough with clear to pale yellow secretions x3 days. He denies any shortness of breath or hemoptysis. No nausea , vomiting, diarrhea, abdominal pain, hematuria, or dysuria. Denies any focal weakness or sensory loss. Denies any dysphagia. Denies any arthralgias or myalgias. He does have a healing wound to his left hip as well as his calf and heels and ischial area. PHYSICAL EXAMINATION GENERAL: At this time, Mr. Barth is a 53-year-old male. He is resting on the stretcher in the emergency room. He does not appear to be in any acute distress. VITAL SIGNS: Blood pressure 148/89, heart rate is 125 to 130, temperature was 101.4, respirations are 16, O2 saturation was 93% to 95% on room air. HEENT: Head is atraumatic. Eyes: EOMs are intact. Sclerae anicteric and not pale. NECK: Supple. LUNGS: Diminished in the bases bilaterally. No wheezing noted. CARDIAC: S1, S2. Regular rate and rhythm. No murmurs, rubs, or gallops. ABDOMEN: Soft and nontender. Bowel sounds are present x4. EXTREMITIES: There is no clubbing or cyanosis. He is able to move his upper extremities. He is unable to move his lower extremities. Pedal pulses are +2. NEUROLOGIC: He is awake, he is alert, he is oriented x3. Speech is clear. Thought process is intact. SKIN: He has a dressing noted to his left hip with a healing left hip surgical scar. He has open area on his left calf with the dressing. He has right buttocks open area with dressing that is intact. No rashes. DIAGNOSTIC STUDIES AND LABORATORY DATA: The patient had a chest x-ray in the ER, report is currently pending. He had a CBC, white count was 12.7, RBCs 3.90, hemoglobin 9.6, hematocrit was 31 , platelet count 513. Sodium 135, potassium 3.6, chloride 101, carbon dioxide was 29, anion gap of 5, BUN was 8, creatinine 0.69, glucose 143. Lactic acid 1.4. Calcium 7.9. ASTs were 11, ALTs were 6, alkaline phosphatase was 80. Urine, pH was 6, specific gravity 1.008. Urine protein and ketones were negative, blood was 2+, nitrites were negative, bilirubin was negative, urobilinogen was negative, leukocyte esterase was 2+, wbc's 3+, rbc's 3+, bacteria was 1+. EKG showed sinus tachycardia at a rate of 125, QTc was 462. ASSESSMENT AND PLAN: Mr. Barth is a 53-year-old male who presented to the emergency room this evening after discharge from [facility] today after his PICC line was dislodged in transport back to [facility]. He was subsequently found to have a fever in the emergency room, tachycardia, and met sepsis criteria. He will be admitted under observation for: 1. Sepsis. The patient currently has a fever of 101.4. It is unclear the source of his fever. He reported a mild cough x3 days. I will get blood culture, CBC, CMP, urine culture. He did receive normal saline 30 cc/kg in the emergency room. I will start him on cefepime 2 g q.8 hours and continue his vancomycin at 1 g q.12 hours with pharmacy dosing based on the trough. It is unclear at this time the source of his infection. I suspect it could be related to urinary tract infection versus a possible pneumonia. Chest x-ray does not appear to show any pneumonia, but radiologist's read is currently pending. If his x-ray does show pneumonia tomorrow, we may want to consider adding Levaquin to his antibiotic regimen to cover hospital-acquired pneumonia. 2. Chronic osteomyelitis. The patient is currently on vancomycin q.12 hours for treatment of chronic osteomyelitis. We will continue on the vancomycin to maintain a trough between 15 and 20. 3. Skin ulcerations. We will continue with dressing changes to the right ischial decub with quarter-strength Dakin solution daily and as soiled. We will continue with Santyl to the left calf, then Vaseline gauze and dry dressing every other day. He will need heel protectors to bilateral heels. 4. Hypertension. He will continue on metoprolol 50 mg p.o. daily. 5. History of deep vein thrombosis. He will be on Eliquis 5 mg p.o. b.i.d. 6. Gastroesophageal reflux disease. He will continue on Pepcid 20 mg p.o. b.i.d. 7. Chronic pain. He will continue on morphine as previously prescribed. 8. Diabetes. I will place him on fingersticks a.c. with lispro sliding scale. 9. Neurogenic bladder. The patient does have chronic Connor placement. He did have a urine sent for UA and culture. It is unclear if this is currently the source of his spike in temperature. 10. Bipolar. He will continue on Zyprexa as previously prescribed. 11. FEN: He can have a regular diet. 12. Code status: He is a full code. 13. DVT prophylaxis: He is on Eliquis. TIME SPENT: Time spent on this admission was approximately 70 minutes, greater than half the time was spent at the bedside reviewing events leading thus far to this hospitalization, performing my physical exam, and reviewing my plan of care. I have discussed this with my attending Dr. Karma Dias, and she is in agreement with my plan. JEANINE HAUSER, CREW TRAINER [id number]/[facility] #: [id number] [place]
[2018-11-30] MEDS: Cefepime 2 GM in Dextrose(*) 2 GM/50 ML BAG IV SCH ×3 (06:02→21:29)
[2018-11-30] MEDS: Insulin LISPRO* 1 UNITS UNIT SUBCUT SCH ×3 (07:58→17:04)
[2018-11-30 09:05] LABS: C Reactive Protein 100.16 mg/L (<8.01); EGFR African American 173.9 (>60); EGFR Non-African American 143.7 (>60)
[2018-11-30] MEDS: Magnesium Oxide TAB* 400 MG PO SCH (09:20)
[2018-11-30] MEDS: Cholecalciferol TAB* 1000 UNITS PO SCH (09:20)
[2018-11-30] MEDS: Ascorbic Acid TAB* 500 MG PO SCH (09:21)
[2018-11-30] MEDS: Atorvastatin* 10 MG TAB PO SCH (09:21)
[2018-11-30] MEDS: Cyanocobalamin TAB* 500 MCG PO SCH (09:22)
[2018-11-30] MEDS: Collagenase 250 MG/GM OINT* 30 GM TOPICAL SCH (09:22)
[2018-11-30] MEDS: Dakins Solution 0.125% (1/4 STRENGTH)* 473 ML BTL TOPICAL SCH (10:25)
[2018-11-30] MEDS ORDERED: Cefepime 2 GM in Dextrose(*) 2 GM/50 ML BAG IV SCH (11:00)
--- NOTE | 2018-11-30 15:34 | PN ---
Subjective Date of Service: 11/30/18 Interval History: Pt feels "fine" no new problems. Objective Active Medications: Acetaminophen (Tylenol Tab*) 650 mg PO Q4H PRN PRN Reason: FEVER/PAIN Albuterol (Ventolin Hfa Inhaler*) 1 puff INH Q4H PRN PRN Reason: SHORTNESS OF BREATH Apixaban (Eliquis*) 5 mg PO BID [facility] Last Admin: 11/30/18 09:21 Dose: 5 mg Ascorbic Acid (Vitamin C Tab*) 1,000 mg PO DAILY [facility] Last Admin: 11/30/18 09:21 Dose: 1,000 mg Atorvastatin Calcium (Lipitor*) 10 mg PO DAILY [facility] Last Admin: 11/30/18 09:21 Dose: 10 mg Cholecalciferol (Vitamin D Tab*) 1,000 units PO DAILY [facility] Last Admin: 11/30/18 09:20 Dose: 1,000 units Collagenase (Santyl 250 Mg/Gm Oint*) 1 applic TOPICAL DAILY [facility] Last Admin: 11/30/18 09:22 Dose: 1 applic Cyanocobalamin (Vitamin B12 Tab*) 1,000 mcg PO DAILY [facility] Last Admin: 11/30/18 09:22 Dose: 1,000 mcg Dextrose (D50w Syringe 50 Ml*) 12.5 gm IV PUSH .FOR FS < 60 - SS PRN PRN Reason: FS < 60 Docusate Sodium (Colace Cap*) 100 mg PO BEDTIME [facility] Last Admin: 11/30/18 00:51 Dose: Not Given Famotidine (Pepcid Tab*) 20 mg PO BID [facility] Last Admin: 11/30/18 09:20 Dose: 20 mg Cefepime HCl (Maxipime 2 Gm In Dextrose Duplex (*)) 2 gm in 50 mls @ 100 mls/ hr IV Q8H [facility] Last Admin: 11/30/18 15:26 Dose: 100 mls/hr Vancomycin HCl 1,000 mg/ (Sodium Chloride) 250 mls @ 166.667 mls/hr IVPB Q12H [facility] Last Admin: 11/30/18 12:44 Dose: 166.667 mls/hr Insulin Human Lispro (Humalog*) 0 units SUBCUT AC [facility]; Protocol Last Admin: 11/30/18 12:24 Dose: Not Given Magnesium Oxide (Magox 400 Tab*) 400 mg PO DAILY [facility] Last Admin: 11/30/18 09:20 Dose: 400 mg Melatonin (Melatonin) 3 mg PO BEDTIME [facility] Last Admin: 11/30/18 00:47 Dose: 3 mg Metoprolol Succinate (Toprol Xl Tab*) 50 mg PO BEDTIME [facility] Last Admin: 11/30/18 00:46 Dose: 50 mg Morphine Sulfate (Morphine Oral Concentrate*) 5 mg PO Q2HR PRN PRN Reason: PAIN - SEVERE Last Admin: 11/30/18 00:19 Dose: 5 mg Morphine Sulfate (Ms Contin(*)) 15 mg PO Q12HR [facility] Last Admin: 11/30/18 09:19 Dose: 15 mg Olanzapine (Zyprexa Tab*) 15 mg PO BEDTIME [facility] Last Admin: 11/30/18 00:48 Dose: 15 mg Pharmacy Consult (Vancomycin Per Pharmacy*) 1 note FOLLOW UP . PRN PRN Reason: PER PROTOCOL Pharmacy Profile Note (Vancomycin Trough Check) 1 note FOLLOW UP 1030 ONE Stop: 12/01/18 10:31 Pregabalin (Lyrica Cap(*)) 25 mg PO TID [facility] Last Admin: 11/30/18 09:20 Dose: 25 mg Senna (Senokot Tab*) 2 tab PO BEDTIME [facility] Last Admin: 11/30/18 00:51 Dose: Not Given Sodium Hypochlorite (Dakins Solution 0.125% (08/09)*) 1 applic TOPICAL DAILY [facility] Last Admin: 11/30/18 10:25 Dose: 1 applic Vital Signs - 8 hr 11/30/18 11/30/18 11/30/18 08:25 09:19 09:20 Temperature 98.1 F Pulse Rate 99 Respiratory 17 16 16 Rate Blood Pressure 131/81 (mmHg) O2 Sat by Pulse 97 Oximetry 11/30/18 11/30/18 11:50 12:08 Temperature 98.1 F Pulse Rate 99 Respiratory 17 16 Rate Blood Pressure 136/74 (mmHg) O2 Sat by Pulse 98 Oximetry Oxygen Devices in Use Now: None Appearance: 53 yo M in nAD, aAOx3 Eyes: No Scleral Icterus, PERRLA Ears/Nose/Mouth/Throat: NL Teeth, Lips, Gums, Mucous Membranes Moist Neck: NL Appearance and Movements; NL JVP, Trachea Midline Respiratory: Symmetrical Chest Expansion and Respiratory Effort, Clear to Auscultation Cardiovascular: NL Sounds; No Murmurs; No JVD, RRR Abdominal: NL Sounds; No Tenderness; No Distention, - - suprapubic cath in place , scrotal edema improving Lymphatic: No Cervical Adenopathy Extremities: No Clubbing, Cyanosis Skin: No Nodules or Sclerosis, - - R ischail tuberosiy ulcer 4-5 cm in diam , 4 cm deep, bottom covered with slough-no cellulitis. L calf 5x10 cm with bone exposed, no cellulitis. B/l heals 2 cm in diam covered with eschar. L hip incision healed Neurological: Alert and Oriented x 3, - - paraplegic Result Diagrams: 11/29/18 21:50 11/30/18 08:21 Assess/Plan/Problems-Billing Assessment: 53 yo M with h/o chronic osteomyelitis of the proximal left femur with history of resection of the femoral head in the distant past, who was on suppressive doxycycline outpatient. S/P outpatient joint aspiration showing MRSA. S/P left hip joint I+D with extensive debridement of necrotic soft tissue on 11/25/18, discharged on 11/29/[address] planned for remaining 36 days of Vanc tx, arrived to [place] with PICC pulled out and directed back to [facility] to have it placed back in - Patient Problems (1) Chronic osteomyelitis Comment: #Chronic OM w/L. hip joint infx: -S/P I&D (11/25/18) of left ischium -L calf decub stage 4 with visible bone - S/P Left open irrigation and debridement of L. hip joint w/extensive debridement of necrotic soft tissue on 11/23/18 -Continue IV Vanc for total6 weeks, Weekly labs while on IV ABX (CBC, CRP, CMP) , PICC to be placed when vascular access team avaliable (2) Anemia Comment: - acute post op on chronic, transfused 3 U PRBC post op, now Hb stable (3) DVT (deep venous thrombosis) Comment: - Left femoral profunda DVT diagnosed 04/30/18. - Continue Apixaban. (4) DVT prophylaxis Comment: - Apixaban. (5) Fever Comment: one episode on 11/29, now afebrile, nontoxic appearing cont to monitor (6) Diabetes 1.5, managed as type 2 Comment: -Well-controlled -Continue ISS -Continue FS monitoring Status and Disposition: OBV
[2018-12-01] MEDS: Cefepime 2 GM in Dextrose(*) 2 GM/50 ML BAG IV SCH ×2 (05:47→15:23)
[2018-12-01] MEDS: Insulin LISPRO* 1 UNITS UNIT SUBCUT SCH ×3 (08:04→17:32)
[2018-12-01 08:34] LABS: ABS Basophils 0.1 10^3/ul (0-0.2); ABS Eosinophils 0.4 10^3/ul (0-0.6); ABS Lymphocytes 1.4 10^3/ul (1.0-4.8); ABS Monocytes 0.5 10^3/ul (0-0.8); ABS Neutrophils 6.2 10^3/ul (1.5-7.7); ABS Nucleated RBC 0 10^3/ul; Eosinophil % 4.2 %; Hematocrit 26 % (36-46); Hemoglobin 8.2 g/dL (14.0-18.0); Lymphocyte % 16.8 %; Mean Corpuscular HGB Conc 32 g/dL (31-36); Mean Corpuscular Hemoglobin 25 pg (27-31); Mean Corpuscular Volume 79 fL (80-94); Mean Platelet Volume 7.2 fL (7.4-10.4); Nucleated Red Blood Cells % 0; Platelet Count 438 10^3/uL (150-450); Red Blood Count 3.27 10^6 /uL (4.18-5.48); Red Cell Distribution Width 20 % (10.5-15); White Blood Count 8.6 10^3/uL (3.5-10.8)
[2018-12-01 08:44] LABS: C Reactive Protein 79.84 mg/L (<8.01); Calcium 8.1 mg/dL (8.6-10.3); EGFR African American 170.5 (>60); EGFR Non-African American 140.9 (>60)
[2018-12-01] MEDS: Magnesium Oxide TAB* 400 MG PO SCH (09:05)
[2018-12-01] MEDS: Atorvastatin* 10 MG TAB PO SCH (09:05)
[2018-12-01] MEDS: Morphine TAB Extended Release (*) 15 MG TAB.ER PO SCH ×2 (09:05→21:16)
[2018-12-01] MEDS: Cyanocobalamin TAB* 500 MCG PO SCH (09:05)
[2018-12-01] MEDS: Cholecalciferol TAB* 1000 UNITS PO SCH (09:05)
[2018-12-01] MEDS: Ascorbic Acid TAB* 500 MG PO SCH (09:05)
[2018-12-01] MEDS: Famotidine TAB* 20 MG PO SCH ×2 (09:05→21:15)
[2018-12-01] MEDS: Pregabalin CAP(*) 25 MG PO SCH ×3 (09:05→21:16)
[2018-12-01] MEDS: Apixaban* 5 MG TAB PO SCH ×2 (09:06→21:14)
[2018-12-01] MEDS: Collagenase 250 MG/GM OINT* 30 GM TOPICAL SCH (09:07)
[2018-12-01] MEDS: Dakins Solution 0.125% (1/4 STRENGTH)* 473 ML BTL TOPICAL SCH (09:07)
--- NOTE | 2018-12-01 09:55 | PN ---
Subjective Date of Service: 12/01/18 Interval History: pt feels well, no new complaints. Awaiting PICC Objective Active Medications: Acetaminophen (Tylenol Tab*) 650 mg PO Q4H PRN PRN Reason: FEVER/PAIN Albuterol (Ventolin Hfa Inhaler*) 1 puff INH Q4H PRN PRN Reason: SHORTNESS OF BREATH Apixaban (Eliquis*) 5 mg PO BID [facility] Last Admin: 12/01/18 09:06 Dose: 5 mg Ascorbic Acid (Vitamin C Tab*) 1,000 mg PO DAILY [facility] Last Admin: 12/01/18 09:05 Dose: 1,000 mg Atorvastatin Calcium (Lipitor*) 10 mg PO DAILY [facility] Last Admin: 12/01/18 09:05 Dose: 10 mg Cholecalciferol (Vitamin D Tab*) 1,000 units PO DAILY [facility] Last Admin: 12/01/18 09:05 Dose: 1,000 units Collagenase (Santyl 250 Mg/Gm Oint*) 1 applic TOPICAL DAILY [facility] Last Admin: 12/01/18 09:07 Dose: 1 applic Cyanocobalamin (Vitamin B12 Tab*) 1,000 mcg PO DAILY [facility] Last Admin: 12/01/18 09:05 Dose: 1,000 mcg Dextrose (D50w Syringe 50 Ml*) 12.5 gm IV PUSH .FOR FS < 60 - SS PRN PRN Reason: FS < 60 Docusate Sodium (Colace Cap*) 100 mg PO BEDTIME [facility] Last Admin: 11/30/18 21:28 Dose: 100 mg Famotidine (Pepcid Tab*) 20 mg PO BID [facility] Last Admin: 12/01/18 09:05 Dose: 20 mg Cefepime HCl (Maxipime 2 Gm In Dextrose Duplex (*)) 2 gm in 50 mls @ 100 mls/ hr IV Q8H [facility] Last Admin: 12/01/18 05:47 Dose: 100 mls/hr Vancomycin HCl 1,000 mg/ (Sodium Chloride) 250 mls @ 166.667 mls/hr IVPB Q12H [facility] Last Admin: 11/30/18 22:35 Dose: 166.667 mls/hr Insulin Human Lispro (Humalog*) 0 units SUBCUT AC [facility]; Protocol Last Admin: 12/01/18 08:04 Dose: Not Given Magnesium Oxide (Magox 400 Tab*) 400 mg PO DAILY [facility] Last Admin: 12/01/18 09:05 Dose: 400 mg Melatonin (Melatonin) 3 mg PO BEDTIME [facility] Last Admin: 11/30/18 21:27 Dose: 3 mg Metoprolol Succinate (Toprol Xl Tab*) 50 mg PO BEDTIME [facility] Last Admin: 11/30/18 21:27 Dose: 50 mg Morphine Sulfate (Morphine Oral Concentrate*) 5 mg PO Q2HR PRN PRN Reason: PAIN - SEVERE Last Admin: 11/30/18 21:26 Dose: 5 mg Morphine Sulfate (Ms Contin(*)) 15 mg PO Q12HR [facility] Last Admin: 12/01/18 09:05 Dose: 15 mg Olanzapine (Zyprexa Tab*) 15 mg PO BEDTIME [facility] Last Admin: 11/30/18 21:27 Dose: 15 mg Pharmacy Consult (Vancomycin Per Pharmacy*) 1 note FOLLOW UP . PRN PRN Reason: PER PROTOCOL Pharmacy Profile Note (Vancomycin Trough Check) 1 note FOLLOW UP 1030 ONE Stop: 12/01/18 10:31 Pregabalin (Lyrica Cap(*)) 25 mg PO TID [facility] Last Admin: 12/01/18 09:05 Dose: 25 mg Senna (Senokot Tab*) 2 tab PO BEDTIME [facility] Last Admin: 11/30/18 21:27 Dose: 2 tab Sodium Hypochlorite (Dakins Solution 0.125% (08/09)*) 1 applic TOPICAL DAILY [facility] Last Admin: 12/01/18 09:07 Dose: 1 applic Vital Signs - 8 hr 12/01/18 12/01/18 12/01/18 03:33 04:15 08:00 Temperature 97.5 F Pulse Rate 88 Respiratory 20 16 Rate Blood Pressure 96/59 106/60 (mmHg) O2 Sat by Pulse 95 Oximetry 12/01/18 12/01/18 08:48 09:05 Temperature 97.7 F Pulse Rate 77 Respiratory 16 17 Rate Blood Pressure 116/66 (mmHg) O2 Sat by Pulse 94 Oximetry Oxygen Devices in Use Now: None Appearance: 53 yo M in NAD, aAOx3 Eyes: No Scleral Icterus, PERRLA Ears/Nose/Mouth/Throat: NL Teeth, Lips, Gums, Mucous Membranes Moist Neck: NL Appearance and Movements; NL JVP, Trachea Midline Respiratory: Symmetrical Chest Expansion and Respiratory Effort, Clear to Auscultation Cardiovascular: NL Sounds; No Murmurs; No JVD, RRR Abdominal: - - suprapubic cath in place, scrotal edema improving Lymphatic: No Cervical Adenopathy Extremities: No Clubbing, Cyanosis, - - trace pedal edema b/l Skin: No Nodules or Sclerosis, - - R ischial decub unchanged, left hip wound/ incision-healed, b/l heels decubs covered with eschar, left calf stage 4 decub- unchanged Neurological: Alert and Oriented x 3, - - paraplegic Result Diagrams: 12/01/18 08:21 12/01/18 08:21 Microbiology and Other Data: Microbiology 11/29/18 22:00 Urine Culture - Final Urine No Growth (<1,000 CFU/mL) 11/29/18 21:55 Blood Culture - Preliminary Blood Venous No Growth Day 1 Assess/Plan/Problems-Billing Assessment: 53 yo M with h/o chronic osteomyelitis of the proximal left femur with history of resection of the femoral head in the distant past, who was on suppressive doxycycline outpatient. S/P outpatient joint aspiration showing MRSA. S/P left hip joint I+D with extensive debridement of necrotic soft tissue on 11/25/18, discharged on 11/29/[address] planned for remaining 36 days of Vanc tx, arrived to [place] with PICC pulled out and directed back to [facility] to have it placed back in - Patient Problems (1) Chronic osteomyelitis Comment: #Chronic OM w/L. hip joint infx: -S/P I&D (11/25/18) of left ischium -L calf decub stage 4 with visible bone - S/P Left open irrigation and debridement of L. hip joint w/extensive debridement of necrotic soft tissue on 11/23/18 -Continue IV Vanc for total 6 weeks, Weekly labs while on IV ABX (CBC, CRP, CMP) , PICC to be placed when vascular access team avaliable (2) Anemia Comment: - acute post op on chronic, transfused 3 U PRBC post op, now Hb fluctuating, but stable (3) DVT (deep venous thrombosis) Comment: - Left femoral profunda DVT diagnosed 04/30/18. - Continue Apixaban. (4) DVT prophylaxis Comment: - Apixaban. (5) Fever Comment: one episode on 11/29, now afebrile, nontoxic appearing cont to monitor (6) Diabetes 1.5, managed as type 2 Comment: -Well-controlled -Continue ISS -Continue FS monitoring Status and Disposition: OBV, awaiting PICC placement to be able to be discharged
[2018-12-01] MEDS: Morphine ORAL CONCENTRATE* 5 MG/0.25 ML ORAL.SYRIN PO PRN ×3 (10:13→19:32)
[2018-12-01] MEDS ORDERED: Vancomycin Trough Check NOTE FOLLOW UP ONE (10:30)
[2018-12-01] MEDS: Vancomycin(*) 1,000 MG in NS 0.9% 250 ML* 250 ML IVPB SCH (13:16)
[2018-12-01] MEDS: Vancomycin(*) 750 MG in NS 0.9% 250 ML* 250 ML IVPB SCH (17:32)
[2018-12-01] MEDS: Metoprolol Succinate XL TAB* 50 MG PO SCH (21:15)
[2018-12-01] MEDS: Docusate CAP* 100 MG PO SCH (21:15)
[2018-12-01] MEDS: Senna TAB PO SCH (21:15)
[2018-12-01] MEDS: OLANzapine TAB* 10 MG PO SCH (21:15)
[2018-12-01] MEDS: Melatonin 3 MG TAB PO SCH (21:15)
[2018-12-02] MEDS: Cefepime 2 GM in Dextrose(*) 2 GM/50 ML BAG IV SCH ×3 (00:02→15:55)
[2018-12-02] MEDS: Vancomycin(*) 750 MG in NS 0.9% 250 ML* 250 ML IVPB SCH ×2 (06:38→17:32)
[2018-12-02] MEDS: Insulin LISPRO* 1 UNITS UNIT SUBCUT SCH ×3 (08:43→17:31)
[2018-12-02] MEDS: Cyanocobalamin TAB* 500 MCG PO SCH (08:51)
[2018-12-02] MEDS: Morphine TAB Extended Release (*) 15 MG TAB.ER PO SCH ×2 (08:51→20:55)
[2018-12-02] MEDS: Pregabalin CAP(*) 25 MG PO SCH ×3 (08:51→21:41)
[2018-12-02] MEDS: Cholecalciferol TAB* 1000 UNITS PO SCH (08:51)
[2018-12-02] MEDS: Ascorbic Acid TAB* 500 MG PO SCH (08:51)
[2018-12-02] MEDS: Collagenase 250 MG/GM OINT* 30 GM TOPICAL SCH (08:52)
[2018-12-02] MEDS: Dakins Solution 0.125% (1/4 STRENGTH)* 473 ML BTL TOPICAL SCH (08:52)
[2018-12-02] MEDS: Apixaban* 5 MG TAB PO SCH ×2 (08:52→20:55)
[2018-12-02] MEDS: Atorvastatin* 10 MG TAB PO SCH (08:52)
[2018-12-02] MEDS: Famotidine TAB* 20 MG PO SCH ×2 (08:52→20:55)
[2018-12-02] MEDS: Magnesium Oxide TAB* 400 MG PO SCH (08:52)
[2018-12-02] MEDS: Morphine ORAL CONCENTRATE* 5 MG/0.25 ML ORAL.SYRIN PO PRN (11:42)
--- NOTE | 2018-12-02 14:44 | DS ---
CC: Provider at [facility]; Dr. Sanz; Dr. Menendez; Dr. Young * DISCHARGE SUMMARY: DATE OF ADMISSION: 11/29/18 DATE OF DISCHARGE: Anticipated discharge, 12/02/18. PRIMARY CARE PROVIDER: Provider at [facility]. CONDITION AT DISCHARGE: Stable. DISCHARGE DIAGNOSES: 1. Fever. 2. The patient's PICC line was pulled out and he will have a need for new PICC line. SECONDARY DIAGNOSES: 1. Recent admission and prolonged hospital stay for reinfection with methicillin- resistant Staphylococcus aureus of chronic osteomyelitis of the left proximal femur, status post I and D by Dr. Menendez on 11/23/18. 2. The patient has suprapubic catheter in place due to neurogenic bladder. 3. History of anemia due to acute intraoperative hemorrhagic anemia, status post recent transfusion. 4. History of paraplegia secondary to ischemic stroke, as per the patient likely affecting spinal cord with subsequent paraplegia and neurogenic bladder. 5. 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 6. Chronic pain. 7. History of deep venous thrombosis. 8. Vitamin B12 deficiency. 9. Chronic pressure ulcers, please see below description in physical exam. 10. Dyslipidemia. 11. Vitamin D deficiency. 12. Gastroesophageal reflux disease. 13. Diabetes, type 2. 14. History of pancreatitis. 15. Bipolar disease with suicidal ideation in the past. 16. History of hypertension. 17. History of posterior cervical fusion. 18. Status post transurethral resection of the prostate in the past. MEDICATIONS AT DISCHARGE: Include: 1. Vancomycin 750 mg IV every 12 hours for a total of 33 days to complete 42 days of treatment total. 2. Albuterol inhaler on a p.r.n. basis. 3. Vitamin C 1000 units daily. 4. Lipitor 10 mg daily. 5. TwoCal supplement 120 mL a.c. and h.s. 6. Vitamin D3 1000 units daily. 7. Pepcid 20 mg b.i.d. 8. Mag-Ox 400 mg daily. 9. Melatonin 3 mg at bedtime. 10. Metformin 500 mg b.i.d. 11. Toprol-XL 50 mg at bedtime. 12. Morphine oral concentrate on a p.r.n. basis; it is 5 mg in 0.25 mL, each dose is 0.25 mL every 2 hours p.r.n. 13. Morphine sulfate/MS Contin 15 mg every 12 hours. 14. Zyprexa 15 mg at bedtime. 15. Senna 2 tablets at bedtime. 16. Zanaflex 4 mg up to 4 times a day p.r.n. 17. Acetaminophen on a p.r.n. basis. 18. Eliquis 5 mg b.i.d. 19. Santyl ointment apply to left calf on every other day basis with dressing changes. 20. Vitamin B12 1000 mcg daily. 21. Dakin's solution one-fourth apply with dressing changes to the right ischial decubitus daily. 22. Dantrolene 25 mg 3 times a day. 23. Colace 100 mg daily. 24. Lyrica 25 mg b.i.d. DISCHARGE INSTRUCTIONS: The patient is recommended to follow up with Dr. Young in 7 to 10 days, Dr. Menendez in 2 weeks. The patient has a wound care appointment scheduled on 12/04/18, at 9: 30 a.m. Wound care orders one-fourth of Dakin's solution wet-to-dry packing to the right ischial ulcer daily. Left hip protect from decubitus with turning of position every 2 hours. Left calf, Santyl cover with Vaseline gauze and cover with 4x4s, change every other day or if soiled. The patient needs to wear bilateral heel protectors. LABORATORY ORDERS: Weekly vancomycin trough, CMPs, CBCs, CRPs when on IV antibiotics and please send this report to Dr. Young and the patient's primary care provider. LABORATORY DATA AND STUDIES PERFORMED DURING THE HOSPITAL STAY: Included: On 12/01/18, white blood cell count of 8.6, hemoglobin of 8.2, hematocrit of 26, and platelets of 438. Sodium of 136, potassium 4.0, chloride 104, carbon dioxide 29, BUN 9, creatinine 0.6. C-reactive protein was 79 on 12/01/18. Microbiology test showed negative urine growth from 11/29/18, blood cultures no growth on day 2 from 11/29/18. FOLLOWUP APPOINTMENTS RECOMMENDED: With Dr. Menendez in 1 to [address] Young in 1 to 2 weeks. With primary care provider at [facility] [place] in 1 to 3 days. With wound care scheduled later on this week on 12/04/18 at 9:30 in the morning. HOSPITALIZATION COURSE: Gabriel Barth is a 53-year-old male with history of chronic osteomyelitis, status post I and D of the left hip by Dr. Menendez on 11/23. After prolonged hospitalization was discharged with PICC line in place, plan to complete his total 42 days of IV vancomycin at [facility] where he was resident of. He was discharged on 11/29/18. When he arrived to [facility], his PICC line was dislodged. Promptly, he was sent back to the emergency department. The same night, he developed a fever of 101. His infectious workup was otherwise unremarkable and his fever never recurred. He stayed over the weekend to await his PICC placement and he is still waiting for a PICC line that should be placed today. After that, he is going to be discharged with recommendation to continue his vancomycin for a total of another 33 days as above mentioned weekly lab work and followups. PHYSICAL EXAM AT THE TIME OF DISCHARGE: Blood pressure of 110/75, heart rate of 88 and regular, respiratory rate of 18, oxygen saturation 94% on room air, and temperature 98.1. General: The patient is a very pleasant 53-year-old male , who is in no acute distress. Alert, awake, and oriented x3. HEENT: Head: Atraumatic, normocephalic. Eyes: Pupils are equal reactive to light and accommodation. Oropharynx is clear. Mucosa is moist. Neck: Supple. No JVD. No bruits bilaterally. Cardiovascular: Regular rate and rhythm. No murmur. Respiratory: Clear to auscultation bilaterally. Abdomen: Soft and nontender. Bowel sounds are present in all 4 quadrants. Suprapubic catheter in place. Extremities: There is trace pedal edema on the right and +1 pedal edema on the left. There is no clubbing, no cyanosis. In regards to the patient's chronic wounds, he has stage IV, down to the bone, decubitus in the left calf of approximately 10 x 5 cm. He has a right ischial ulcer of approximately 5 cm in diameter, 4-cm deep, bottom of the wound cover with slough, not infected, no cellulitis evident. The left incision site is healed with no dehiscence. He also has bilateral heel wounds approximately 4 cm each covered with eschar. Neuro Evaluation: The patient is oriented x3. Cranial nerves II through XII grossly intact. He is paraplegic from the waist down. Please note that this is a short summary of the patient's hospitalization. Please refer to further medical records for details. TIME SPENT: Approximately 35 minutes was spent on discharge of this patient to [facility]. [id number]/[facility] #: [id number] HUGO
--- NOTE | 2018-12-02 16:21 | PN ---
Progress Note - Progress Note Date of Service: 12/02/18 Note: After pt was seen for discharge he developed upper body tremors and tachycardia. His discharge was held. Labs ordered and pensing
[2018-12-02] MEDS ORDERED: Metoprolol Tartrate IV* 1 MG/ML 5 ML VIAL IV PRN (16:50)
[2018-12-02 17:11] LABS: Urine Appearance Clear; Urine Bacteria Absent (Absent); Urine Bilirubin Negative (Negative); Urine Blood 1+ (Negative); Urine Color Yellow; Urine Glucose Negative (Negative); Urine Ketones Negative (Negative); Urine Nitrite Negative (Negative); Urine Protein Negative (Negative); Urine Red Blood Cell 2+(6-10/hpf) (Absent); Urine Specific Gravity 1.013 (1.010-1.030); Urine Urobilinogen Negative (Negative); Urine White Blood Cell Trace(0-5/hpf) (Absent)
[2018-12-02] MEDS: NS 0.9% 1000 ML** 1,000 ML IV SCH ×2 (17:33→21:48)
[2018-12-02 17:34] LABS: Albumin 2.4 g/dL (3.2-5.2); Albumin/Globulin Ratio 0.5 (1-3); BUN/Creatinine Ratio 15.4 (8-20); C Reactive Protein 84.21 mg/L (<8.01); Calcium 8.3 mg/dL (8.6-10.3); EGFR Non-African American 104.1 (>60); Globulin 4.9 g/dL (2-4); Magnesium 1.9 mg/dL (1.9-2.7); Potassium 4.4 mmol/L (3.5-5.0); Total Bilirubin 0.3 mg/dL (0.2-1.0); Total Protein 7.3 g/dL (6.4-8.9)
[2018-12-02 17:43] LABS: ABS Basophils 0.1 10^3/ul (0-0.2); ABS Eosinophils 0.3 10^3/ul (0-0.6); ABS Lymphocytes 1.1 10^3/ul (1.0-4.8); ABS Monocytes 0.5 10^3/ul (0-0.8); ABS Neutrophils 11.4 10^3/ul (1.5-7.7); ABS Nucleated RBC 0 10^3/ul; Eosinophil % 2.5 %; Hematocrit 30 % (36-46); Hemoglobin 9.4 g/dL (14.0-18.0); Mean Corpuscular HGB Conc 32 g/dL (31-36); Mean Corpuscular Hemoglobin 25 pg (27-31); Mean Corpuscular Volume 79 fL (80-94); Mean Platelet Volume 7.8 fL (7.4-10.4); Nucleated Red Blood Cells % 0; Platelet Count 548 10^3/uL (150-450); Red Blood Count 3.75 10^6 /uL (4.18-5.48); Red Cell Distribution Width 20 % (10.5-15); White Blood Count 13.4 10^3/uL (3.5-10.8)
--- NOTE | 2018-12-02 17:52 | PN ---
Progress Note - Progress Note Date of Service: 12/02/18 Note: labs reviewed. WBC 13, CRP>80, pt meets sepsis. will start IVF bolus Cefepime d/c'd-pt had the reaction despite being n it. Also pt may have drug reaction
[2018-12-02] MEDS ORDERED: NS 0.9% IV ONE (18:00)
[2018-12-02] MEDS: Senna TAB PO SCH (20:54)
[2018-12-02] MEDS: Melatonin 3 MG TAB PO SCH (20:55)
[2018-12-02] MEDS: Docusate CAP* 100 MG PO SCH (20:55)
[2018-12-02] MEDS: Metoprolol Succinate XL TAB* 50 MG PO SCH (20:55)
[2018-12-02] MEDS: OLANzapine TAB* 10 MG PO SCH (21:41)
[2018-12-03] MEDS ORDERED: NS 0.9% 1000 ML** 1,000 ML IV ONE (00:11)
--- NOTE | 2018-12-03 00:18 | PN ---
Hospitalist Progress Note Date of Service: 12/03/18 53 yo M parplegia, known recurrent infxn in hip, MRSA, on Vanco, on Cefipime over the weekend Event at 5Pm with tachycardia altered-Labs look OK, head CT normal, got 1 L continued Vanco alone, d/c Cefipime concern for possible allergy -Tachycardia resolved -Called b/c BP is now low 70s/40s, pt mentating and arousable, will bolus 1L and follow up pressures show response. No other acute events overnight
[2018-12-03] MEDS: NS 0.9% 1000 ML** 1,000 ML IV SCH (00:59)
[2018-12-03] MEDS: Vancomycin(*) 750 MG in NS 0.9% 250 ML* 250 ML IVPB SCH ×2 (05:22→19:18)
[2018-12-03] MEDS ORDERED: Vancomycin Trough Check NOTE FOLLOW UP ONE (05:30)
[2018-12-03] MEDS: Insulin LISPRO* 1 UNITS UNIT SUBCUT SCH ×3 (08:10→16:46)
[2018-12-03] MEDS: Ascorbic Acid TAB* 500 MG PO SCH (09:00)
[2018-12-03] MEDS: Cholecalciferol TAB* 1000 UNITS PO SCH (09:01)
[2018-12-03] MEDS: Famotidine TAB* 20 MG PO SCH ×2 (09:01→21:19)
[2018-12-03] MEDS: Atorvastatin* 10 MG TAB PO SCH (09:01)
[2018-12-03] MEDS: Cyanocobalamin TAB* 500 MCG PO SCH (09:01)
[2018-12-03] MEDS: Magnesium Oxide TAB* 400 MG PO SCH (09:02)
[2018-12-03] MEDS: Apixaban* 5 MG TAB PO SCH ×2 (09:03→21:19)
[2018-12-03] MEDS: Pregabalin CAP(*) 25 MG PO SCH ×3 (09:04→21:18)
[2018-12-03] MEDS: Morphine TAB Extended Release (*) 15 MG TAB.ER PO SCH ×2 (09:05→21:18)
[2018-12-03 11:00] LABS: ABS Basophils 0.1 10^3/ul (0-0.2); ABS Eosinophils 0.4 10^3/ul (0-0.6); ABS Lymphocytes 1.3 10^3/ul (1.0-4.8); ABS Monocytes 0.6 10^3/ul (0-0.8); ABS Neutrophils 10.3 10^3/ul (1.5-7.7); ABS Nucleated RBC 0 10^3/ul; Eosinophil % 2.9 %; Hematocrit 26 % (36-46); Hemoglobin 8.4 g/dL (14.0-18.0); Lymphocyte % 10.4 %; Mean Corpuscular HGB Conc 32 g/dL (31-36); Mean Corpuscular Hemoglobin 25 pg (27-31); Mean Corpuscular Volume 78 fL (80-94); Mean Platelet Volume 7.3 fL (7.4-10.4); Nucleated Red Blood Cells % 0; Platelet Count 508 10^3/uL (150-450); Red Blood Count 3.34 10^6 /uL (4.18-5.48); Red Cell Distribution Width 20 % (10.5-15); White Blood Count 12.7 10^3/uL (3.5-10.8)
[2018-12-03 11:14] LABS: BUN/Creatinine Ratio 13.6 (8-20); Calcium 8.2 mg/dL (8.6-10.3); EGFR African American 152.8 (>60); EGFR Non-African American 126.3 (>60)
[2018-12-03] MEDS: Dakins Solution 0.125% (1/4 STRENGTH)* 473 ML BTL TOPICAL SCH (11:23)
[2018-12-03] MEDS: Collagenase 250 MG/GM OINT* 30 GM TOPICAL SCH (11:23)
[2018-12-03] MEDS ORDERED: Piperacillin/Tazobac ADVAN(*) 3.375 GM in NS 0.9% 100 ML* 100 ML IVPB SCH (14:00)
--- NOTE | 2018-12-03 16:01 | PN ---
Subjective Date of Service: 12/03/18 Interval History: Gabriel feels okay, he has no complaints today but says he "does not know what's going on with my health." He was unable to name his year but otherwise can name other dates including his day. Denies pain. Objective Active Medications: Acetaminophen (Tylenol Tab*) 650 mg PO Q4H PRN PRN Reason: FEVER/PAIN Last Admin: 12/01/18 21:15 Dose: 650 mg Albuterol (Ventolin Hfa Inhaler*) 1 puff INH Q4H PRN PRN Reason: SHORTNESS OF BREATH Apixaban (Eliquis*) 5 mg PO BID [facility] Last Admin: 12/03/18 09:03 Dose: 5 mg Ascorbic Acid (Vitamin C Tab*) 1,000 mg PO DAILY [facility] Last Admin: 12/03/18 09:00 Dose: 1,000 mg Atorvastatin Calcium (Lipitor*) 10 mg PO DAILY [facility] Last Admin: 12/03/18 09:01 Dose: 10 mg Cholecalciferol (Vitamin D Tab*) 1,000 units PO DAILY [facility] Last Admin: 12/03/18 09:01 Dose: 1,000 units Collagenase (Santyl 250 Mg/Gm Oint*) 1 applic TOPICAL DAILY [facility] Last Admin: 12/03/18 11:23 Dose: 1 applic Cyanocobalamin (Vitamin B12 Tab*) 1,000 mcg PO DAILY [facility] Last Admin: 12/03/18 09:01 Dose: 1,000 mcg Dextrose (D50w Syringe 50 Ml*) 12.5 gm IV PUSH .FOR FS < 60 - SS PRN PRN Reason: FS < 60 Docusate Sodium (Colace Cap*) 100 mg PO BEDTIME [facility] Last Admin: 12/02/18 20:55 Dose: 100 mg Famotidine (Pepcid Tab*) 20 mg PO BID [facility] Last Admin: 12/03/18 09:01 Dose: 20 mg Heparin Sodium (Porcine) (Heparin Flush Picc/Ml/Cvc(*)) 1 - 3 ml FLUSH 0600, 1800 [facility]; Protocol Last Admin: 12/03/18 05:18 Dose: Not Given Vancomycin HCl 750 mg/ Sodium (Chloride) 250 mls @ 166.667 mls/hr IVPB Q12H [facility] Last Admin: 12/03/18 05:22 Dose: 166.667 mls/hr Sodium Chloride (Ns 0.9% 1000 Ml) 1,000 mls @ 100 mls/hr IV PER RATE [facility] Last Admin: 12/03/18 00:59 Dose: 100 mls/hr Insulin Human Lispro (Humalog*) 0 units SUBCUT AC [facility]; Protocol Last Admin: 12/03/18 12:07 Dose: Not Given Magnesium Oxide (Magox 400 Tab*) 400 mg PO DAILY [facility] Last Admin: 12/03/18 09:02 Dose: 400 mg Melatonin (Melatonin) 3 mg PO BEDTIME [facility] Last Admin: 12/02/18 20:55 Dose: 3 mg Metoprolol Succinate (Toprol Xl Tab*) 50 mg PO BEDTIME [facility] Last Admin: 12/02/18 20:55 Dose: 50 mg Metoprolol Tartrate (Lopressor Iv*) 5 mg IV Q6H PRN PRN Reason: BLOOD PRESSURE Last Admin: 12/02/18 17:52 Dose: 5 mg Morphine Sulfate (Ms Contin(*)) 15 mg PO Q12HR [facility] Last Admin: 12/03/18 09:05 Dose: 15 mg Olanzapine (Zyprexa Tab*) 15 mg PO BEDTIME [facility] Last Admin: 12/02/18 21:41 Dose: 15 mg Pharmacy Consult (Vancomycin Per Pharmacy*) 1 note FOLLOW UP . PRN PRN Reason: PER PROTOCOL Pharmacy Profile Note (Vancomycin Trough Check) 1 note FOLLOW UP ONCE ONE Stop: 12/05/18 05:01 Pregabalin (Lyrica Cap(*)) 25 mg PO TID [facility] Last Admin: 12/03/18 13:34 Dose: 25 mg Senna (Senokot Tab*) 2 tab PO BEDTIME [facility] Last Admin: 12/02/18 20:54 Dose: 2 tab Sodium Hypochlorite (Dakins Solution 0.125% (1/4)*) 1 applic TOPICAL DAILY [facility] Last Admin: 12/03/18 11:23 Dose: 1 applic Vital Signs - 8 hr 12/03/18 12/03/18 12/03/18 07:58 09:04 09:05 Temperature 97.5 F Pulse Rate 95 Respiratory 16 16 16 Rate Blood Pressure 122/89 (mmHg) O2 Sat by Pulse 97 Oximetry 12/03/18 12/03/18 12/03/18 11:10 12:28 13:34 Temperature 99.4 F Pulse Rate 115 Respiratory 20 16 18 Rate Blood Pressure 122/92 (mmHg) O2 Sat by Pulse 100 Oximetry Oxygen Devices in Use Now: None Appearance: alert, no distress, breathing comfortably Eyes: No Scleral Icterus Ears/Nose/Mouth/Throat: NL Teeth, Lips, Gums Neck: NL Appearance and Movements; NL JVP Respiratory: Symmetrical Chest Expansion and Respiratory Effort, Clear to Auscultation Cardiovascular: NL Sounds; No Murmurs; No JVD, RRR Abdominal: NL Sounds; No Tenderness; No Distention, - - suprapubic catheter in place Lymphatic: No Cervical Adenopathy Skin: - - deep right lateral wound without drainage, erythema Neurological: - - arm spasms/myoclonus? alert to person, place, time, situation , slow to respond Result Diagrams: 12/03/18 10:45 12/03/18 10:45 Microbiology and Other Data: Microbiology 11/29/18 22:00 Urine Culture - Final Urine No Growth (<1,000 CFU/mL) 11/29/18 21:55 Blood Culture - Preliminary Blood Venous No Growth Day 1 Assess/Plan/Problems-Billing Assessment: 53 yo M with h/o chronic osteomyelitis of the proximal left femur with history of resection of the femoral head in the distant past, who was S/P left hip joint I+D with extensive debridement of necrotic soft tissue on 11/25/18 , discharged on 11/29/[address] planned for remaining 36 days of Vanc tx, arrived to [place] with PICC pulled out and directed back to [facility] to have it placed back in and was noted to have fever, leukocytosis and then developed a change in mental status. - Patient Problems (1) Toxic encephalopathy Current Visit: Yes Status: Acute Code(s): G92 - TOXIC ENCEPHALOPATHY SNOMED Code(s): 60320692 Comment: EEG today suggested myoclonus and toxic encephalopathy consistent with cefepime side effects, which is most consistent with his presentation his change in mentation began after initiation of cefepime repeat infectious work up has been unrevealing (2) Chronic osteomyelitis Current Visit: No Status: Acute Code(s): M86.60 - OTHER CHRONIC OSTEOMYELITIS, UNSPECIFIED SITE SNOMED Code(s): 66016916 Comment: #Chronic OM w/L. hip joint infx: -S/P I&D (11/25/18) of left ischium -L calf decub stage 4 with visible bone - S/P Left open irrigation and debridement of L. hip joint w/extensive debridement of necrotic soft tissue on 11/23/18 -Continue IV Vanc for total 6 weeks, Weekly labs while on IV ABX (CBC, CRP, CMP) PICC in place (3) Neurogenic bladder Current Visit: No Status: Acute Code(s): N31.9 - NEUROMUSCULAR DYSFUNCTION OF BLADDER, UNSPECIFIED SNOMED Code(s): 068485471 Comment: with suprapubic catheter
--- NOTE | 2018-12-03 16:44 | CONSULT ---
Subjective Date of Service: 12/03/18 Interval History: Mr. Barth is a 53 yo male with PMH significant for paraplegia, neurogenic bladder with suprapubic urinary catheter, DM2, chronic pain, HLD, GERD, Bipolar disorder, HTN, and MRSA osteomyelitis of the left hip, who presented to the hospital for a dislodged PICC line. He presented with known skin breakdown to his right ischium and left lower leg. He was recently hospitalized for a left hip infection wtih MRSA. Patient seen and examined at bedside. Family History: Unchanged from Admission Social History: Unchanged from Admission Past Medical History: Unchanged from Admission Review of Systems - Measurements Intake and Output: Intake and Output Last 24 Hours 12/01/18 12/02/18 12/03/18 12/04/18 06:59 06:59 06:59 06:59 Intake Total 2040 1875 3300 1090 Output Total 4025 4775 3850 2650 Balance -1985 -2900 -550 -1560 Intake: IV Fluids 422 18 6576 571 NS (0.9%) 92 2430 571 vancomyacin 250 IVPB 405 403 279 ABX - VANCOMYCIN 279 NS (0.9%) 403 Oral 1320 1380 620 240 Output: Urine 650 775 Connor 3375 4775 3075 2650 - Review of Systems Constitutional Symptoms: Negative: Fever, Other - Chills Dermatology: Positive: Other - Pressure injuries Endocrinology: Positive: Diabetes Mellitus Objective Active Medications: Acetaminophen (Tylenol Tab*) 650 mg PO Q4H PRN Reason: FEVER/PAIN Albuterol (Ventolin Hfa Inhaler*) 1 puff INH Q4H PRN Reason: SHORTNESS OF BREATH Apixaban (Eliquis*) 5 mg PO BID [facility] Ascorbic Acid (Vitamin C Tab*) 1,000 mg PO DAILY [facility] Atorvastatin Calcium (Lipitor*) 10 mg PO DAILY [facility] Cholecalciferol (Vitamin D Tab*) 1,000 units PO DAILY [facility] Collagenase (Santyl 250 Mg/Gm Oint*) 1 applic TOPICAL DAILY [facility] Cyanocobalamin (Vitamin B12 Tab*) 1,000 mcg PO DAILY [facility] Dextrose (D50w Syringe 50 Ml*) 12.5 gm IV PUSH .FOR FS < 60 - SS PRN Reason: FS < 60 Docusate Sodium (Colace Cap*) 100 mg PO BEDTIME [facility] Famotidine (Pepcid Tab*) 20 mg PO BID [facility] Heparin Sodium (Porcine) (Heparin Flush Picc/Ml/Cvc(*)) 1 - 3 ml FLUSH 0600, 1800 [facility]; Protocol Vancomycin HCl 750 mg/ Sodium (Chloride) 250 mls @ 166.667 mls/hr IVPB Q12H [facility] Sodium Chloride (Ns 0.9% 1000 Ml) 1,000 mls @ 100 mls/hr IV PER RATE [facility] Insulin Human Lispro (Humalog*) 0 units SUBCUT AC [facility]; Protocol Magnesium Oxide (Magox 400 Tab*) 400 mg PO DAILY [facility] Melatonin (Melatonin) 3 mg PO BEDTIME [facility] Metoprolol Succinate (Toprol Xl Tab*) 50 mg PO BEDTIME [facility] Metoprolol Tartrate (Lopressor Iv*) 5 mg IV Q6H PRN Reason: BLOOD PRESSURE Morphine Sulfate (Ms Contin(*)) 15 mg PO Q12HR [facility] Olanzapine (Zyprexa Tab*) 15 mg PO BEDTIME [facility] Pharmacy Consult (Vancomycin Per Pharmacy*) 1 note FOLLOW UP . PRN Reason: PER PROTOCOL Pharmacy Profile Note (Vancomycin Trough Check) 1 note FOLLOW UP ONCE ONE Stop: 12/05/18 05:01 Pregabalin (Lyrica Cap(*)) 25 mg PO TID [facility] Senna (Senokot Tab*) 2 tab PO BEDTIME [facility] Sodium Hypochlorite (Dakins Solution 0.125% (08/09)*) 1 applic TOPICAL DAILY [facility] Vital Signs 12/03/18 12/03/18 12:28 13:34 Temperature 99.4 F Pulse Rate 115 Respiratory 16 18 Rate Blood Pressure 122/92 (mmHg) O2 Sat by Pulse 100 Oximetry Oxygen Devices in Use Now: None Appearance: NAD, laying in bed Ears/Nose/Mouth/Throat: Mucous Membranes Moist Respiratory: Symmetrical Chest Expansion and Respiratory Effort Extremities: - - Bilateral LE edema Skin: - - See skin note below Neurological: - - Alert and Oriented to person and place Lines/Tubes/Other Access: Clean, Dry and Intact PICC Line Nutrition: Taking PO's Result Diagrams: 12/04/18 05:00 12/04/18 04:35 Microbiology and Other Data: Microbiology 11/29/18 22:00 Urine Culture - Final Urine No Growth (<1,000 CFU/mL) 11/29/18 21:55 Blood Culture - Preliminary Blood Venous No Growth Day 1 Skin Deviation Note - Skin Deviation Findings Left posterior lower leg - The wound base is mostly red granulation tissue. There is some yellow slough present in the wound bed. There is also what appears to be exposed tendon. There is no drainage noted on the dressing that was removed. The wound measures 8.5 cm x 5 cm x 0.4 cm. Left lateral medial malleolus - There is a small dark abrasion, measuring 0.5 cm x 0.5 cm. The surrounding skin is intact. No drainage. Left heel - There is a an area that is non blanchable, measuring 1.3 cm x 1.5 cm. The surrounding skin is intact. No drainage. Right heel - There is an area of dark eschar, measuring 1.5 cm x 2.5 cm. THe surrounding skin is dry, but intact. No drainage. Right ischium - The wound measures 5.5 cm x 5.2 cm x 2 cm. The wound bed has some red granulation tissue, but is mostly yellow and black slough. There was no drainage on the old dressing. The surrounding skin is intact. Not pictured - There area also abrasions to bilateral knees. The left knee abrasions measure 1.5 cm x 2 cm x 0.1 cm. Assessment/Plan: Mr. Barth is a 53 yo male with PMH significant for paraplegia, neurogenic bladder with suprapubic urinary catheter, DM2, chronic pain, HLD, GERD, Bipolar disorder, HTN, and MRSA osteomyelitis of the left hip, who presented to the hospital for a dislodged PICC Line and was sound to be meeting sepsis criteria. He presented with known skin breakdown to his right ischium and left lower leg. 1. Left posterior leg pressure injury, stage 4. Previously treated with a wound vac at [facility]. The patient was seen by Dr. Johnson during his previous admission and the wound was debrided. There is tendon exposure. Recommend to continue applying Santyl to the areas of slough and dry dressing, changing daily. Make sure there is no pressure to the area. 2. Right ischium pressure injury, stage 4. Previously treated at [facility] with daily wet to dry dressing changes and therahoney every other day. The patient was seen by Dr. Sanz on his previous admission and the wound was debrided. Continue dakin's solution (1/4 strength) and dry dressing for now. Frequent turning and repositioning. 3. Bilateral heel deep tissue injury. These were also present on admission, continue to keep pressure off the area and elevated heels and use heel protectors. 4. Chronic osteomyelitis of the left hip, with MRSA abscess. S/P I+D with Orthopedics on previous admission. Being followed by ID. 5. Paraplegia. 6. Diet. Consistent carbohydrate 7. Code Status. Full Code 8. Disposition. Inpatient, disposition per primary medicine team. TIME SPENT: Time for this wound consultation was 40 minutes and 30 minutes was spent with the patient discussing past medical history; removing dressings, assessing, measuring, photographing the wounds, and redressing the wounds. Wound Problem/Plan Is Patient a Wound Clinic Patient: Yes Current Treatment: Dakin solution 1/4 strength to right ishium wound. Santyl to the left leg wound. Attending: Connie Gonzalez
[2018-12-03] MEDS: OLANzapine TAB* 10 MG PO SCH (21:17)
[2018-12-03] MEDS: Metoprolol Succinate XL TAB* 50 MG PO SCH (21:18)
[2018-12-03] MEDS: Docusate CAP* 100 MG PO SCH (21:18)
[2018-12-03] MEDS: Melatonin 3 MG TAB PO SCH (21:19)
[2018-12-03] MEDS: Senna TAB PO SCH (21:19)
--- NOTE | 2018-12-03 22:09 | EEG ---
ELECTROENCEPHALOGRAPHY REPORT: DATE OF SERVICE: 12/03/18 ORDERED BY: Dr. Karla Walker. CLINICAL PROBLEM: Mr. Barth is a 53-year-old right-handed man who has a history of hydrocephalus, status post 2 shunt placements in 2010, who is paraplegic at baseline, who presented with sepsis. The patient was discharged recently to [facility] with antibiotic therapy cefepime. Cefepime was discontinued yesterday. This EEG was obtained to evaluate for myoclonic jerks to investigate for any epileptiform discharges or electrographic seizures. MEDICATIONS: 1. Zosyn. 2. Pregabalin. 3. Humalog. 4. Heparin. 5. Vancomycin. 6. Apixaban. 7. Docusate. 8. Famotidine. 9. Melatonin. 10. Metoprolol. 11. Morphine. 12. Olanzapine. 13. Senna. 14. Vitamin C. 15. Atorvastatin. 16. Vitamin D. 17. Vitamin B12. 18. Mag-Ox. DURATION OF THE RECORDIN to 1524. CLINICAL STATE: Waking and drowsy. REPORT: The background lacked organization or clearly defined anterior and posterior voltage and frequency gradient. There was no discernible posterior dominant rhythm. Instead, the background consisted of diffuse medium amplitude polymorphic 3-6 Hz delta and theta range slowing. Occasionally, the delta slowing became sharply contoured and took on a triphasic morphology. Also, there were occasional , diffuse, sharp and slow wave epileptiform discharges seen throughout the recording that correlated with clinical episodes of upper extremity jerking. There were no clear electrographic seizures. Hypoventilation and photic stimulation were not performed. Throughout the recording, there were no electrographic seizures. CLINICAL IMPRESSION: This is an abnormal EEG due to the presence of diffuse but reactive slowing with triphasic waves and diffuse sharp and slow wave epileptiform discharges. These findings are suggestive of a nonspecific mild-to -moderate diffuse encephalopathy with diffuse sharp and slow wave epileptiform discharges and triphasic waves can be seen in the setting of cefepime neuro toxicity. There were no electrographic seizures. If the patient continues to have myoclonic jerks, develops new episodes of confusion, or seizure-like activity despite discontinuing cefepime therapy, I recommend starting the patient on levetiracetam 500 mg twice daily. Obtaining a neurological consultation at that time is recommended. Otherwise, if the patient continues to slowly improve back to his baseline, all we can confirm that the culprit to his confusion and abnormal movement is related to cefepime. I discussed these results with Dr. Walker today at 1546. [id number]/[facility] #: [id number] H[facility]PITALTammy
[2018-12-04] MEDS: NS 0.9% 1000 ML** 1,000 ML IV SCH (04:27)
[2018-12-04 05:09] LABS: ABS Basophils 0.1 10^3/ul (0-0.2); ABS Eosinophils 0.5 10^3/ul (0-0.6); ABS Lymphocytes 1.7 10^3/ul (1.0-4.8); ABS Monocytes 0.6 10^3/ul (0-0.8); ABS Neutrophils 7.5 10^3/ul (1.5-7.7); ABS Nucleated RBC 0 10^3/ul; Eosinophil % 4.4 %; Hematocrit 24 % (36-46); Hemoglobin 7.7 g/dL (14.0-18.0); Lymphocyte % 16.7 %; Mean Corpuscular HGB Conc 32 g/dL (31-36); Mean Corpuscular Hemoglobin 25 pg (27-31); Mean Corpuscular Volume 79 fL (80-94); Mean Platelet Volume 7.4 fL (7.4-10.4); Nucleated Red Blood Cells % 0; Platelet Count 426 10^3/uL (150-450); Red Blood Count 3.04 10^6 /uL (4.18-5.48); Red Cell Distribution Width 20 % (10.5-15); White Blood Count 10.3 10^3/uL (3.5-10.8)
[2018-12-04 05:17] LABS: BUN/Creatinine Ratio 14.1 (8-20); Calcium 7.8 mg/dL (8.6-10.3); EGFR African American 140.4 (>60); EGFR Non-African American 116.1 (>60); Potassium 3.7 mmol/L (3.5-5.0)
[2018-12-04] MEDS: Vancomycin(*) 750 MG in NS 0.9% 250 ML* 250 ML IVPB SCH (05:32)
[2018-12-04] MEDS: Insulin LISPRO* 1 UNITS UNIT SUBCUT SCH ×2 (08:47→12:11)
[2018-12-04] MEDS: Famotidine TAB* 20 MG PO SCH (09:47)
[2018-12-04] MEDS: Cholecalciferol TAB* 1000 UNITS PO SCH (09:47)
[2018-12-04] MEDS: Apixaban* 5 MG TAB PO SCH (09:47)
[2018-12-04] MEDS: Pregabalin CAP(*) 25 MG PO SCH (09:47)
[2018-12-04] MEDS: Atorvastatin* 10 MG TAB PO SCH (09:47)
[2018-12-04] MEDS: Morphine TAB Extended Release (*) 15 MG TAB.ER PO SCH (09:47)
[2018-12-04] MEDS: Magnesium Oxide TAB* 400 MG PO SCH (09:48)
[2018-12-04] MEDS: Ascorbic Acid TAB* 500 MG PO SCH (09:48)
[2018-12-04] MEDS: Cyanocobalamin TAB* 500 MCG PO SCH (09:48)
[2018-12-04] MEDS: Dakins Solution 0.125% (1/4 STRENGTH)* 473 ML BTL TOPICAL SCH (10:28)
[2018-12-04] MEDS: Collagenase 250 MG/GM OINT* 30 GM TOPICAL SCH (10:52)
[2018-12-04 11:10] VITALS: BP 113/66
--- NOTE | 2018-12-04 11:42 | DS ---
THIS IS AN ADDENDUM TO THE DISCHARGE SUMMARY DICTATED ON 12/02/[address]. PLEASE SEE THAT DISCHARGE SUMMARY FOR THE COMPLETE DESCRIPTION OF MR. BROOKS'S ADMISSION AND DISCHARGE PLAN. DATE OF ADMISSION: 11/30/2018. DATE OF DISCHARGE: 12/04/2018. HOSPITAL COURSE: Mr. Brooks was initially discharged on December 02 after his PICC line was reinserted; however, he developed a change in mental status and so his discharge was cancelled. He became confused, thought he was at [facility]. He was noted to be tachycardic, but the remainder of his neurologic exam was intact. He also has myoclonic jerking of his upper extremities. A CT head was negative. A subsequent infectious work-up was unremarkable, as well as a metabolic work-up. His Cefepime was discontinued. An EEG was obtained which was abnormal due to the presence of diffuse but reactive slowing with triphasic waves and diffuse sharp and slow wave epileptiform discharges. These findings were suggestive of a nonspecific mild to moderate diffuse encephalopathy with diffuse sharp and slow wave epileptiform discharges and triphasic waves which can be seen in the setting of Cefepime neuro toxicity. There were no electrographic seizures. On the day following the EEG and three days after Cefepime had been discontinued , Mr. Freire continued to improve from a neurologic standpoint and was back to his baseline which is alert and oriented times three. Regarding the osteomyelitis that he was originally being treated for, the plan remains to continue Vancomycin for six weeks via a right upper extremity PICC line. He needs 30 more days of Vancomycin. DISCHARGE MEDICATIONS: Please see Dr. Street's discharge summary from December 02. PHYSICAL EXAMINATION AT THE TIME OF DISCHARGE: General: Alert, well-appearing man in no distress. He is oriented times three. Vital Signs: Temperature 98.1 , heart rate 85, respiratory rate 16, pulse ox 97 percent on room air, blood pressure 132/56. HEENT: His left pupil is 5 mm and his right pupil is 2 mm and asymmetric. This is baseline for him. Oral mucosa is moist. Shunt is present in his right frontal forehead. Neck: No JVP. Chest: He is in a regular rate and rhythm with no murmurs. Lungs: Clear bilaterally. Abdomen: Soft, nontender, nondistended. Extremities: His left lower extremity is larger than his right lower extremity with 2+ pitting edema to the thigh. He has marked scrotal edema. Skin: He has a left posterior lower leg wound that is approximately 5 cm wide x 7 cm long with pink tissue and granulation tissue. He has a left lateral medial malleolus, small closed eschar that is approximately 0.5 cm in diameter. He has a 2 cm pressure sore on the left heel , a 2 cm eschar on the right heel, a 5 cm eschar on the right ischium, and a 3 cm eschar on the left heel. DISPOSITION: Mr. Brooks is discharged back to [facility] with 30 more days of IV Vancomycin via a right PICC line. CONDITION AT THE TIME OF DISCHARGE: Stable. FOLLOW-UP NEEDED: Mr. Brooks is to follow-up with Infectious Disease in the next two weeks. He needs weekly CBC, CMP, and CRP while he is on antibiotics. Please see the remainder of Dr. Street's discharge summary for this medications and orders. [id number] #: [id number] MTDD
[2018-12-05] MEDS ORDERED: Vancomycin Trough Check NOTE FOLLOW UP ONE (05:00)
== END 2018-12-04 13:45 | DRG 871 ==
LOC: ED 18:31 → MEDTELE 20:24 → OBSVTOIN 12-01 14:03
PROVIDERS: ADMIT Hospitalist; ATTEND Internal Medicine
PROC: 02HV33Z Insertion of Infusion Device into Superior Vena Cava, Percutaneous Approach (ICD-10-PCS; 2018-12-02)
PROC: 4A10X4Z Monitoring of Central Nervous Electrical Activity, External Approach (ICD-10-PCS; principal; 2018-12-03)
DX: A41.9 Sepsis, unspecified organism (principal); G92 Toxic encephalopathy; M86.652 Other chronic osteomyelitis, left thigh; G82.20 Paraplegia, unspecified; Z88.5 Allergy status to narcotic agent; E78.00 Pure hypercholesterolemia, unspecified; I10 Essential (primary) hypertension; K21.9 Gastro-esophageal reflux disease without esophagitis; H54.8 Legal blindness, as defined in USA; F32.9 Major depressive disorder, single episode, unspecified; E11.39 Type 2 diabetes mellitus with other diabetic ophthalmic complication; H42 Glaucoma in diseases classified elsewhere; N31.9 Neuromuscular dysfunction of bladder, unspecified; E11.9 Type 2 diabetes mellitus without complications; G89.29 Other chronic pain; E78.5 Hyperlipidemia, unspecified; 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 resistant Staphylococcus aureus infection as the cause of diseases classified elsewhere; L89.899 Pressure ulcer of other site, unspecified stage; L89.629 Pressure ulcer of left heel, unspecified stage; L89.619 Pressure ulcer of right heel, unspecified stage; E53.8 Deficiency of other specified B group vitamins; E55.9 Vitamin D deficiency, unspecified; D64.9 Anemia, unspecified; Z86.73 Personal history of transient ischemic attack (TIA), and cerebral infarction without residual deficits; Z86.718 Personal history of other venous thrombosis and embolism; Z86.14 Personal history of Methicillin resistant Staphylococcus aureus infection; Z98.1 Arthrodesis status; Z87.891 Personal history of nicotine dependence; Z87.440 Personal history of urinary (tract) infections; Z79.01 Long term (current) use of anticoagulants; Z79.84 Long term (current) use of oral hypoglycemic drugs
CPT/HCPCS: 36415; 70450; 71046; 80048; 80053; 80202; 81003; 81015; 82140; 82565; 83605; 83735; 84520; 85025; 86140; 87040; 87086; 93005; 95816; 99285; A9270-GY; C1751; J0692; J2543; J3370; J3490

== ENCOUNTER 2019-01-10 13:42 | Emergency (ER) | payer MEDICARE ==
--- NOTE | 2019-01-10 14:08 | ED ---
GI/ HPI - HPI Summary HPI Summary: Pt is a 53 y/o M presenting to the ED brought in by EMS for urogenital issues. The pt has a suprapubic catheter placed that has been there since 2014, and per EMS, his urine output today has been low, <100ml. He usually has his catheter replaced every 3-4 months, and it was last changed two weeks ago. 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 He denies myalgia, fever, nausea, or vomiting. - History of Current Complaint Chief Complaint: EDUrogenitalProblems Time Seen by Provider: 01/10/19 13:48 Stated Complaint: CATHETER ISSUE PER EMS Hx Obtained From: Patient Onset/Duration: Started Hours Ago, Still Present Timing: Constant, Lasting Hours Current Severity: None Pain Intensity: 0 Location of Pain: None Associated Signs and Symptoms: Positive: Other: - positive: decrease in urine output. negative: myalgia. Negative: Nausea, Vomiting, Fever Aggravating Factor(s): Nothing Alleviating Factor(s): Nothing - Additional Pertinent History Primary Care Physician: ELENA - Allergy/Home Medications Allergies/Adverse Reactions: Allergies Allergy/AdvReac Type Severity Reaction Status Date / Time oxycodone [From Percocet] Allergy Itching Verified 11/19/18 11:04 cefepime AdvReac Severe See Comment Verified 12/03/18 15:28 Home Medications: Home Medications Nut.sup,Spec,Lac-Free,Iron/Fos [Twocal Hn Liquid] 237 ml PO ACHS 01/10/19 [ History Confirmed 01/10/19] RiFAMPin CAP* 300 mg PO BID 01/10/19 [History Confirmed 01/10/19] Sulfamethox/Trimethoprim DS* [Bactrim DS 800/160 TAB*] 1 tab PO BID 01/10/19 [ History Confirmed 01/10/19] PMH/Surg Hx/FS Hx/Imm Hx Previously Healthy: No Endocrine/Hematology History: Reports: Hx Diabetes, Hx Anemia Cardiovascular History: Reports: Hx Hypercholesterolemia, Hx Hypertension GI History: Reports: Hx Gastroesophageal Reflux Disease History: Denies: Hx Renal Disease Musculoskeletal History: Reports: Other Musculoskeletal History - Paralysis Sensory History: Reports: Hx Glaucoma, Hx Legally Blind, Hx Vision Problem Denies: Hx Contacts or Glasses, Hx Hearing Aid Opthamlomology History: Reports: Hx Glaucoma, Hx Legally Blind, Hx Vision Problem Denies: Hx Contacts or Glasses Neurological History: Reports: Other Neuro Impairments/Disorders - Positive paralysis Psychiatric History: Reports: Hx Depression Denies: Hx Eating Disorder - Surgical History Surgery Procedure, Year, and Place: VENTRICULOPERITONEAL SHUNT, ABDOMINAL SURGERY WITH INSERTION OF SUPRAPUBIC CATHETER, TRANSURETHRAL RESECTION OF THE PROSTATE, URETEROSTOMY Infectious Disease History: No Infectious Disease History: Reports: Hx of Known/Suspected MRSA Denies: Traveled Outside the [place] in Last 30 Days - Family History Known Family History: Negative: Respiratory Disease, Seizure Disorder, Blood Disorder - Social History Alcohol Use: None Hx Substance Use: No Substance Use Type: Reports: None Hx Tobacco Use: Yes Smoking Status (MU): Former Smoker Review of Systems Negative: Fever Negative: Vomiting, Nausea Positive: other - decrease in urine output Negative: Myalgia All Other Systems Reviewed And Are Negative: Yes Physical Exam - Summary Physical Exam Summary: GENERAL: Patient is a well-developed and nourished M who is lying comfortable in the stretcher. Patient is not in any acute respiratory distress. HEAD AND FACE: Normocephalic EYES: L pupil is dilated in comparison to R pupil, this is baseline according to patient d/t diabetic macular edema. EARS: Hearing grossly intact. MOUTH: Oropharynx within normal limits. NECK: Supple, trachea is midline, no adenopathy, no JVD, no carotid bruit. CHEST: Symmetric, no tenderness at palpation LUNGS: Clear to auscultation bilaterally. No wheezing or crackles. CVS: Regular rate and rhythm, S1 and S2 present, no murmurs or gallops appreciated. ABDOMEN: Distended suprapubic abdomen, in bladder area. EXTREMITIES: Full ROM in all major joints, no edema, no cyanosis or clubbing. NEURO: Alert and oriented x 3. No acute neurological deficits. Speech is normal and follows commands. SKIN: Dry and warm Triage Information Reviewed: Yes Vital Signs On Initial Exam: Initial Vitals Temp Pulse Resp BP Pulse Ox 97.4 F 109 16 92/69 97 01/10/19 13:56 01/10/19 13:56 01/10/19 13:56 01/10/19 13:56 01/10/19 13:56 Vital Signs Reviewed: Yes Procedures - Procedure Summary Procedure Summary: I placed a suprapubic swenson into the patient using a 22 fringe. Sterile technique was used and the pt's vital signs were stable before and after the procedure. Diagnostics - Vital Signs Vital Signs Temp Pulse Resp BP Pulse Ox 01/10/19 13:56 97.4 F 109 16 92/69 97 - Laboratory Result Diagrams: 01/10/19 14:19 01/10/19 14:19 Lab Statement: Any lab studies that have been ordered have been reviewed, and results considered in the medical decision making process. GIGU Course/Dx - Course Course Of Treatment: Pt is a 53 y/o M presenting to the ED brought in by EMS for urogenital issues. The pt has a suprapubic catheter placed that has been there since 2014, and per EMS, his urine output today has been low, <100ml. He denies myalgia, fever, nausea, or vomiting. On exam, the pt's L pupil is larger than his R pupil, which the pt states is from his diabetic-related macular edema. He is blind in his L eye, and his R eyesight is gradually decreasing. His abd is distended in the suprapubic area, around his bladder. Pt s hematology shows RBC of 3.16, Hgb of 8.3, Hct of 26, and RDW of 20. His chemistry shows BUN of 28, BUN/Creatinine ratio of 26.7, Albumin of 2.6, Globulin of 4.7, and Albumin/Globulin ratio of 0.6. I placed a suprapubic swenson into the patient using a 22 fringe. Sterile technique was used and the pt' s vital signs were stable before and after the procedure. The pts urine shows 3+ protein, 2+ leukocyte esterase, 3+ WBC, 3+ RBC, and present ascorbic acid. The pt is hemodynamically stable and safe for discharge. He will be d/c'ed with dx including swenson catheter malfunction, UTI, and urinary retention. Strict return precautions given, and the pt will otherwise follow up with his PCP. - Diagnoses Provider Diagnoses: Malfunction of Swenson catheter, UTI (urinary tract infection), Urinary retention Discharge - Sign-Out/Discharge Documenting (check all that apply): Patient Departure Patient Received Moderate/Deep Sedation with Procedure: No - Discharge Plan Condition: Stable Disposition: HOME Prescriptions: Sulfamethox/Trimethoprim DS* [Bactrim DS 800/160 TAB*] 1 tab PO BID 7 Days #14 tab Patient Education Materials: Urinary Tract Infection in Men (ED) Referrals: Shanae Gonzalez NP [Primary Care Provider] - Additional Instructions: Please follow up with your primary care provider within the next 1-3 days. Return to the ED with any new or worsening symptoms. - Billing Disposition and Condition Condition: STABLE Disposition: Home - Attestation Statements Document Initiated by Scribe: Yes Documenting Scribe: Billie Agee Provider For Whom Scribe is Documenting (Include Credential): Carissa Alvarado MD. Scribe Attestation: Billie Macias, scribed for Carissa Alvarado MD. on 01/10/19 at 1743. Scribe Documentation Reviewed: Yes Provider Attestation: The documentation as recorded by the scribeBillie accurately reflects the service I personally performed and the decisions made by Mode pyle MD. Status of Scribe Document: Viewed
--- OUTSIDE RECORDS SUMMARY | 2019-01-10 14:09 | XMS REPORT | Continuity of Care Document ---
:1965 External Reference #:[id number] Author Name Rashmi Walls Care Team Providers Name Role Phone Christian Rodriguez M.D. Care Team Information Field Traffic Investigator Unavailable Payers Date Identification Numbers Payment Provider Subscriber Policy Number: [id number] Medicare Baylee Brooks PayID: [id number] [address] [place] [address] Expires: 2017 Policy Number: [id number] Medicaid Baylee Brooks Group Name: 1 1 [address] PayID: [id number] [place] [address] Family History Date Family Member(s) Observation Comments General unknown adopted Social History Type Date Description Comments Sex Unknown Lives With correction Occupation Disabled ETOH Use Denies alcohol use Tobacco Use Start: Unknown End: Patient is a former smoked 1.5 ppd from Unknown smoker age [age] Smoking Status Reviewed: 01/09/19 Patient is a former smoked 1.5 ppd from smoker age [age] Exercise Type/Frequency Exercises regularly Allergies, Adverse Reactions, Alerts Active Allergies Reaction Severity Comments Date Percocet sweats, itching 05/21/2018 Medications Active Medications SIG Qnty Indications Ordering Date Provider Olanzapine 1 08/07 tab by Unknown 10mg Tablets mouth every day Lyrica 1 by mouth three Unknown 25mg Capsules times a day Famotidine 1 by mouth every Unknown 20mg Tablets day Vitamin C 1 by mouth every Unknown 1000mg Tablets day Morphine Sulfate Unknown 15mg Tablets Vancomycin IV 1250mg IV q day Unknown at [facility] Metformin HCL 1 by mouth twice Unknown 500mg Tablets a day Tizanidine HCL 1 by mouth twice Unknown 4mg Capsules daily Morphine Sulfate 5 mg by mouth Unknown (Concentrate) every 8 hours for Solution pain as needed Metoprolol Succinate ER 1 by mouth every Unknown 50mg day at bedtime Tablets ER 24HR Melatonin 1 tab by mouth Unknown 3mg Capsules every night at bedtime Eliquis 1 by mouth twice Unknown 5mg Tablets a day Santyl apply ointment to Unknown 250Unit/GM Ointment wound as directed daily Cyanocobalamin po qd Unknown Dantrolene Sodium 1 po tid Unknown Diphenhydramine HCL 1 po q 6 hrs as Unknown 25mg needed Capsules Miralax 17 gram once a Unknown 3350NF Packet day prn Tylenol 2 tablets every 4 Unknown 325mg Capsules hours as needed for pain Atorvastatin Calcium 1 by mouth every Unknown 10mg day Tablets Cholecalciferol once daily Unknown Colace 1 tab twice daily Unknown 100mg Capsules Magnesium Oxide 1 by mouth every Unknown 400mg Tablets day History Medications Olanzapine one tablet twice daily Unknown - 12/12/2018 7.5mg Tablets Nystatin topically twice a day as Unknown - 12/12/2018 needed Milk Of Magnesia 30ml by mouth every 4 hrs Unknown - 2018 400mg/5ML as needed Suspension Famotidine 1 by mouth twice a day Unknown - 12/12/2018 20mg Tablets Capsaicin apply topically bid Unknown - 12/12/2018 Vitamin C 1 by mouth every day Unknown - 12/12/2018 1000mg Tablets Albuterol HFA 2 puffs by mouth four Unknown - 12/12/2018 108(90Base) times a day as needed mcg/Act Aerosol Maalox Plus 30 milliliters by mouth Unknown - 12/12/[phone]/5ML q6hr as needed Suspension indigestion Tramadol HCL 1 tablet by mouth every 8 Unknown - 12/12/2018 50mg Tablets hours as needed pain Temazepam 1 tablet by mouth once Unknown - 12/12/2018 15mg Capsules daily at bedtime Fleet Enema one enema rectally as Unknown - 12/12/2018 7-19GM/118ML Enema needed every 24 hours Doxycycline Hyclate one tablet twice daily Unknown - 2018 100mg Capsules Vital Signs Date Vital Result Comment 01/09/2019 2:19pm Height 72 inches 6'0" Weight 182.00 lb Heart Rate 100 /min BP Systolic Sitting 96 mmHg BP Diastolic Sitting 58 mmHg Respiratory Rate 14 /min Body Temperature 98.1 F O2 % BldC Oximetry 98 % BMI (Body Mass Index) 24.7 kg/m2 12/13/2018 2:47pm Height 72 inches 6'0" Weight 180.00 lb Heart Rate 68 /min BP Systolic 140 mmHg BP Diastolic 82 mmHg Respiratory Rate 12 /min Body Temperature 98.8 F Pain Level 0 BMI (Body Mass Index) 24.4 kg/m2 11/07/2018 1:46pm Height 72 inches 6'0" Weight [...] Date Facility Test Result H/L Range Note Laboratory test 11/19/2018 [facility] Cytology SEE RESULT [address] Non-Fire Fighting Equipment Specialist BELOW [place] [id number] [phone] Body Fluid C&S 11/19/2018 [facility] Body Fluid SEE RESULT [address] [place] [address] Stain [phone] Comp Metabolic 11/01/2018 [facility] Sodium 134 mmol/L Low 135 -[address] [place] [address] [phone] Potassium 4.8 mmol/L N 3.5-5.0 Chloride 97 [...] Egfr Non- 110.6 >60 Egfr 133.9 >60 3 Laboratory test 11/01/2018 [facility] C Reactive 129.46 mg/L High <8.[address] [place] [address] [phone] CBC Auto Diff 11/01/2018 [facility] White Blood 12.0 High 3.5- 10.[address] Count 10^3/[place] [address] [phone] Red Blood Count 3.24 10^6/uL Low 4.18-5.48 [...] Blood Cells % 0 Laboratory test 11/01/2018 [facility] Erythrocyte Sed 126 mm/Hr High 0-20 [address] [place] [address] [phone] BUN/Creat/GFR 11/01/2018 [facility] Poc Blood Urea 16 mg/dL N 8-[address] [place] [place] [address] [phone] Poc Creatinine 0.8 mg/dL N 0.6-1.3 5 Poc BUN/Creatinine Ratio 20.0 N 8-20 Egfr Non- 101.1 >60 Egfr 122.4 >60 6 1 SEE RESULT BELOW Name: BAYLEE BROOKS : [address]: Ernie Sanz MD Acct: [id number] Unit: [id number] AGE: 53 Location: SP Re11/19/18 SEX: M Status: REG REF SPEC: [id number] GLORIA: 11/19/18- SUBM DR: Ernie Sanz MD REQ: [id number] RECD: 11/19/18 STATUS: SOUT _ ORDERED: FNA INTERP RPT FINAL DIAGNOSIS Left hip fluid, fine needle aspiration: -- Negative for malignant cells. -- Inflammation. 1. HIP LEFT - LEFT HIP ABSCESS FINE NEEDLE ASPIRATION CLINICAL HISTORY Left hip fine needle aspiration. GROSS DESCRIPTION 1.5 ml of clear fluid. Signed by and Reported on: Eugenie Dia MD 11/19/18 1551 END OF REPORT DEPARTMENT OF PATHOLOGY, [address] [place] [address] Carter Gonzalez M.D. Director [facility] # [id number] 2 SEE RESULT BELOW Name: BAYLEE BROOKS : [address]: Ernie Sanz MD Acct: [id number] Unit: [id number] AGE: 53 Location: SP Re11/19/18 SEX: M Status: REG REF SPEC: [id number] GLORIA: 11/19/18-[address] [facility] [address]: Ernie Sanz MD REQ: [id number] RECD: 11/19/18 STATUS: COMP BRITTNI DR: Zoie Alexander MD _ SOURCE: JOINT FLUI SPDESC:HIP LEFT ORDERED: BF Cult/GS, MRSA/SA SSTI COMMENTS: Verbal to [id number] by [id number] at 1408 on 11/20/18. Results read back accurately. Procedure Result Reported Site Body Fluid Gram Stain Final 11/19/18- 1343 ML 1+ Nucleated Cells 1+ Neutrophils No Organisms Seen Preparation By Cytospin Smear Body Fluid Culture Final 11/23/18- 0849 ML Organism 1 MRSA Quantity 1+ Consistent with previous results. 1. MRSA M.I.C. RX --------- ------ Penicillin >=0.5 R Clindamycin >=8 R Erythromycin >=8 R Gentamicin <=0.5 S Linezolid 2 S Oxacillin >=4 R * Quinupristin/Dalfopristin <=0.25 S Rifampin <=0.5 S Tetracycline 4 S Doxycycline - Deduced S * Minocycline - Deduced S Trimethoprim/Sulfamethoxazole <=10 S CONTINUED ON NEXT PAGE DEPARTMENT OF PATHOLOGY, [address] [place] [address] Carter Gonzalez M.D. Director [facility] # [id number] Patient: BAYLEE BROOKS [id number] (Continued) Specimen: [id number] Collected: 11/19/18-1037 Received: 11/19/18-110 (Continued) Procedure Result Reported Site Body Fluid Culture Final (continued) 11/23/18- 0849 1. MRSA (continued) M.I.C. RX --------- ------ Vancomycin 1 S Imipenem-Deduced R * Ampicillin/Sulbactam-Deduced R Cefazolin-Deduced R * These antibiotics are not available in the [facility] Formulary Contact the Microbiology Department for any additional antibiotic reporting. MRSA/S. aureus SSTI PCR Final 11/20/18- 1245 ML Organism 1 MRSA POSITIVE Organism 2 S.AUREUS POSITIVE * ML - Main Lab . END OF REPORT DEPARTMENT OF PATHOLOGY, [address] [place] [address] Carter Gonzalez M.D. Director [facility] # [id number] 3 Because ethnic data is not always readily [...] 15-29 5 Kidney failure <15 (or dialysis) 4 Test Performed by: [facility] [address] [place] [id number] Carter Gonzalez M.D. Director of Laboratory 5 Physician Office Assistant: [id number] 6 Because ethnic data is not always readily [...] (or dialysis) Procedures Date Code Description Status 01/08/2019 32965 Debridement Skin, Subcutaneous Tissue & Muscle Completed 01/08/2019 52807 Debridement Skin,& sq Tissue Completed 12/18/2018 97706 Debridement Skin, Subcutaneous Tissue & Muscle Completed 12/18/2018 33950 Debridement Skin,& sq Tissue Completed 12/11/2018 86477 Debridement Skin, Subcutaneous Tissue & Muscle Completed 11/27/2018 95853 Debridement Skin, Subcutaneous Tissue & Muscle Completed 11/23/2018 04125 Arthrotomy Hip W/Drainage Completed 11/23/2018 91880 Arthrotomy Hip W/Drainage Completed 11/22/2018 30342 Debridement Muscle/Fascia,Epidermis/Dermis/Tissue,Addtl 20 Completed SQ CM 11/22/2018 49318 Debridement Skin, Subcutaneous Tissue & Muscle Completed 11/21/2018 63191 ECHO Transthorasic Realtime 2D W Doppler & Color Flow Hosp Completed 11/13/2018 16583 Debridement Skin, Subcutaneous Tissue & Muscle Completed 11/13/2018 63240 Debridement Tissue/Muscle/Bone Completed 11/13/2018 19894 Debridement Muscle/Fascia,Epidermis/Dermis/Tissue,Addtl 20 Completed SQ CM 11/06/2018 48380 Debridement Muscle/Fascia,Epidermis/Dermis/Tissue,Addtl 20 Completed SQ CM 11/06/2018 92466 Debridement Muscle/Fascia,Epidermis/Dermis/Tissue,1St 20 Completed SQ CM 11/06/2018 73783 Debridement Skin, Subcutaneous Tissue & Muscle Completed 11/06/2018 26586 Debridement Skin,& sq Tissue Completed 10/30/2018 10397 Debridement Muscle/Fascia,Epidermis/Dermis/Tissue,1St 20 Completed SQ CM 10/30/2018 35564 Debridement Skin,& sq Tissue Completed 04/23/2018 99847 EKG, Interpretation Only Completed 04/20/2018 46552 EKG, Interpretation Only Completed 04/07/2018 79406 ECHO Transthorasic Realtime 2D W Doppler & Color Flow Hosp Completed 04/04/2018 60450 EKG, Interpretation Only Completed 04/01/2018 81461 EEG Recording Awake & Asleep Completed 03/31/2018 82654 EKG, Interpretation Only Completed Encounters Type Date Location Provider Dx Diagnosis Office Visit 12/04/2018 [facility] Karla Walker M86.652 Other chronic 10:19a Assoc,darling DO osteomyelitis, Hospitalists left thigh G92 Toxic encephalopathy 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 classd elswhr G82.20 Paraplegia, unspecified Office Visit 12/03/2018 10:18a [facility] Karla G92 Toxic encephalopathy Asscindy,darling Walker, DO Hospitalists M86.652 Other chronic osteomyelitis, left thigh L97.226 Non-prs chr ulc of left calf with bone invl w/o evd of necr N31.9 Neuromuscular dysfunction of bladder, unspecified Office Visit 12/03/2018 8:45a [facility] Jovana Cee L89.314 Pressure ulcer Center AT [facility] KAMARN Pinzon of right buttock, stage 4 L89.94 Pressure ulcer of unspecified site, stage 4 G82.20 Paraplegia, unspecified E11.9 Type 2 diabetes mellitus without complications Z78.9 Other specified health status Office Visit 12/02/2018 [facility] Mayda M86.652 Other chronic 10:18a Assoc,darling Street M.D. osteomyelitis, left Hospitalists thigh R41.82 Altered mental status, unspecified R00.0 Tachycardia, unspecified R50.9 Fever, unspecified Office Visit 12/01/2018 [facility] M86.652 Other chronic 10:17a Assdarling white M.D. osteomyelitis, left Hospitalists thigh 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 classd elswhr E11.622 Type 2 diabetes mellitus with other skin ulcer L97.226 Non-prs chr ulc of left calf with bone invl w/o evd of necr D50.0 Iron deficiency anemia secondary to blood loss (chronic) Office Visit 11/30/2018 [facility] M86.652 Other chronic 9:57a Assdarling white M.D. osteomyelitis, left Hospitalists thigh E11.622 Type 2 diabetes mellitus with other skin ulcer L97.226 Non-prs chr ulc of left calf with bone invl w/o evd of necr D50.0 Iron deficiency anemia secondary to blood loss (chronic) R50.9 Fever, unspecified Office Visit 11/29/2018 [facility] Jovana Grijalva E11.69 Type 2 diabetes 7:09a For Infectious [place], CL[employer]RINK[employer] TESTER mellitus with Diseases other specified complication M86.652 Other chronic osteomyelitis, left thigh D72.829 Elevated white blood cell count, unspecified G82.20 Paraplegia, unspecified Office Visit 11/29/2018 9:57a [facility] Jeanine Assdarling white, [employer] Hospitalists Office Visit 11/29/2018 11:24a [facility] Yenifer M86.652 Other chronic darling Rico M.D. osteomyelitis Hospitalists , left thigh 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 classd elswhr B96.4 Proteus (mirabilis) (morganii) causing dis classd elswhr N39.0 Urinary tract infection, site not specified D62 Acute posthemorrhagic anemia Office Visit 11/28/2018 [facility] M86.652 Other chronic 11:24a darling Rico M.D. osteomyelitis, left Hospitalists thigh 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 classd elswhr R79.89 Other specified abnormal findings of blood chemistry I95.9 Hypotension, unspecified Office Visit 11/27/2018 [facility] Jovana Coleman E11.69 Type 2 diabetes 7:07a For Infectious KAMRAN [place] mellitus with Diseases other specified complication M86.652 Other chronic osteomyelitis, left thigh D72.829 Elevated white blood cell count, unspecified G82.20 Paraplegia, unspecified Office Visit 11/27/2018 [facility] John Valiente L89.45 Pressr ulc of 11:24a darling Rico MD contig site of Hospitalists back,buttock & hip, unstageable M86.652 Other chronic osteomyelitis, left thigh R79.89 Other specified abnormal findings of blood chemistry Office Visit 11/26/2018 9:00a Wound Care Jovana Coleman L89.314 Pressure ulcer Center AT [facility] [place], [employer] TESTER of right buttock, stage 4 L89.94 Pressure ulcer of unspecified site, stage 4 M86.652 Other chronic osteomyelitis, left thigh 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 classd elswhr Z78.9 Other specified health status G82.20 Paraplegia, unspecified Office Visit 11/26/2018 [facility] Johnjaelyn Valiente M86.652 Other chronic 11:23a darling Rico MD osteomyelitis, left Hospitalists thigh R79.89 Other specified abnormal findings of blood chemistry Office Visit 11/25/2018 [facility] John Rocco M86.652 Other chronic 11:23a darling Rico MD osteomyelitis, left Hospitalists thigh I95.9 Hypotension, unspecified R79.89 Other specified abnormal findings of blood chemistry Office Visit 11/25/2018 [facility] Jovanabi Cee M86.652 Other chronic 7:05a For Infectious [place] [employer] TESTER osteomyelitis, left Diseases thigh L02.416 Cutaneous abscess of left lower limb 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 classd elswhr E11.69 Type 2 diabetes mellitus with other specified complication Z96.0 Presence of urogenital implants [facility] M[facility].652 Other chronic 11:22a darling Rico MD osteomyelitis, left Hospitalists thigh I95.9 Hypotension, unspecified E11.9 Type 2 diabetes mellitus without complications R07.9 Chest pain, unspecified Office Visit 11/23/2018 [facility] Woody Choudhury M86.652 Other chronic 11:22a M.D. osteomyelitis, left thigh Office Visit 11/22/2018 [facility] Betzaida Harp M86.652 Other chronic 7:00a Infectious [place], osteomyelitis, left Diseases M.D. thigh L02.416 Cutaneous abscess of left lower limb 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 classd elsr R00.0 Tachycardia, unspecified E11.69 Type 2 diabetes mellitus with other specified complication R82.998 Other abnormal findings in urine Office Visit 11/22/2018 11:21a [facility] Shaunna M86.652 Other chronic Zoya Doto, osteomyelitis, left [employer] thigh 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 classd elsr I95.9 Hypotension, unspecified R00.0 Tachycardia, unspecified G82.20 Paraplegia, unspecified Office Visit 11/22/2018 10:37a Orthopedic Tori Grover 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 resis [facility] staph infct C.M.A. causing diseases [facility]d [facility] M86.652 Other chronic osteomyelitis, left thigh Office Visit 11/21/2018 11:21a [facility] L97.929 Non-prs Assoc,pc Shortle, [employer] TESTER chronic ulc Hospitalists unsp prt of l low leg w unsp severity L89.45 Pressr ulc of contig site of back,buttock & hip, unstageable 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 classd [facility] M86.652 Other chronic osteomyelitis, left thigh G93.40 Encephalopathy, unspecified R00.0 Tachycardia, unspecified R79.89 Other specified abnormal findings of blood chemistry G82.20 Paraplegia, unspecified Office Visit 11/21/2018 3:15p Orthopedic Saima Menendez 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 resis [facility] Rosa staph infct C.M.A. causing diseases classd [facility] M86.652 Other chronic osteomyelitis, left thigh Office Visit 11/07/2018 2:20p [facility] Betzaida Harp L97.929 Non- prs Infectious Rosa Huggins chronic ulc Diseases unsp prt of l low leg w unsp severity M86.652 Other chronic osteomyelitis, left thigh 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 classd elswhr Office Visit 10/16/2018 9:30a Wound Care Ernie Carias89.153 Pressure ulcer [facility] MD Umu of sacral region, stage 3 L97.929 Non-prs chronic ulc unsp prt of l low leg w unsp severity Office Visit 09/04/2018 9:30a Wound Care Center Ernie Van.323 Pressure ulcer AT [facility] MD Umu of left buttock, stage 3 Office Visit 08/08/2018 1:40p [facility] For Shemar Harp M86.652 Other chronic Infectious Micheal Huggins. osteomyelitis, Diseases left thigh 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 classd elswhr Z79.2 group home (current) use of antibiotics Office Visit 07/10/2018 11:15a Wound Care Center Ernie Carias89.323 Pressure ulcer AT [facility] MD Umu of left buttock, stage 3 Office Visit 06/24/2018 2:40p [facility] For Shemar Harp M86.652 Other chronic Infectious Rosa Huggins osteomyelitis, Diseases left thigh 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 classd elswhr Z79.2 group home (current) use of antibiotics M25.551 Pain in right hip Office Visit 06/19/2018 10:00a Wound Care Ernie Carias89.323 Pressure ulcer Center AT [facility] MD Umu of left buttock, stage 3 Office Visit 06/05/2018 9:30a Wound Care Ernie Carias89.323 Pressure ulcer [facility] AT [facility] MD Umu of left buttock, stage 3 M86.652 Other chronic osteomyelitis, left thigh G82.20 Paraplegia, unspecified Office Visit 05/21/2018 [facility] Shemar Harp M86.652 Other chronic 9:50a For Infectious Micheal Huggins. osteomyelitis, left Diseases thigh 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 classd elswhr L89.150 Pressure ulcer of sacral region, unstageable Office Visit 05/08/2018 [facility] John Valiente R45.851 Suicidal 9:18a Assoc,darling Diallo [...] G82.20 Paraplegia, unspecified Office Visit 05/05/2018 9:18a [facility] I82.412 Acute embolism Assoc,darling Kamara M.D. and [...] diseases classd elswhr Office Visit 04/30/2018 9:18a [facility] R45.851 Suicidal Assoc,darling Kamara M.D. ideations Hospitalists I82.412 Acute embolism and thrombosis of left femoral vein E43 Unspecified severe protein-calorie malnutrition G82.20 Paraplegia, unspecified Office Visit 04/28/2018 9:17a [facility] [address], E11.622 Type 2 Assdarling white M.D. diabetes Hospitalists mellitus with other skin ulcer L98.499 Non-pressure chronic ulcer of skin of sites w unsp severity G82.20 Paraplegia, unspecified B96.1 Klebsiella pneumoniae as the cause of diseases classd elswhr N39.0 Urinary tract infection, site not specified E43 Unspecified severe protein-calorie malnutrition Office Visit 04/24/2018 [facility] Shemar Harp M86.652 Other chronic 10:30a For Bettina Huggins M.D. 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 ideations Hospitalists G82.20 Paraplegia, unspecified L98.499 [...] dysfunction of bladder, unspecified Office Visit 04/17/2018 [facility] T14.91xA Suicide 2:39p darling Rico M.D. attempt, Hospitalists initial encounter F31.30 Bipolar disord, crnt epsd depress, mild or mod severt, unsp L89.229 Pressure ulcer of left hip, unspecified stage G82.20 Paraplegia, unspecified Z98.2 Presence of cerebrospinal fluid drainage device Office Visit 04/16/2018 [facility] T14.91xA Suicide 2:39p darling Rico M.D. attempt, Hospitalists initial encounter L89.229 Pressure ulcer of left hip, unspecified stage E43 Unspecified severe protein-calorie malnutrition G82.20 Paraplegia, unspecified I10 Essential (primary) hypertension E78.5 Hyperlipidemia, unspecified Office Visit 04/15/2018 [facility] John Valiente T14.91xA Suicide 2:39p Assocdarling MD attempt, Hospitalists initial encounter L89.229 Pressure ulcer of left hip, unspecified stage E43 Unspecified severe protein-calorie malnutrition G82.20 Paraplegia, unspecified M62.830 Muscle spasm of back I10 Essential (primary) hypertension Office Visit 04/14/2018 [facility] John Valiente T14.91xA Suicide 2:38p darling Rico MD attempt, Hospitalists initial encounter L89.229 Pressure ulcer of left hip, unspecified stage M62.830 Muscle spasm of back E43 Unspecified severe protein-calorie malnutrition G82.20 Paraplegia, unspecified I10 Essential (primary) hypertension Office Visit 04/13/2018 [facility] John Valiente T14.91xA Suicide 2:38p darling Rico MD attempt, Hospitalists initial encounter L89.229 Pressure ulcer of left hip, unspecified stage M62.830 Muscle spasm of back E43 Unspecified severe protein-calorie malnutrition G82.20 Paraplegia, unspecified I10 Essential (primary) hypertension Office Visit 04/12/2018 [facility] John Valiente T14.91xA Suicide 2:37p darling Rico MD attempt, Hospitalists initial encounter L89.229 Pressure ulcer of left hip, unspecified stage E43 Unspecified severe protein-calorie malnutrition G82.20 Paraplegia, unspecified I10 Essential (primary) hypertension Office Visit 04/11/2018 [facility] John Valiente T14.xA Suicide 2:37p darling Rico MD attempt, Hospitalists initial encounter E43 Unspecified severe protein-calorie malnutrition L89.229 Pressure ulcer of left hip, unspecified stage G82.20 Paraplegia, unspecified I10 Essential (primary) hypertension Office Visit 04/10/2018 [facility] Shaunna T14.xA Suicide 2:36p Assoc,darling Henry, attempt, Hospitalists CL[employer] TESTER initial encounter F31.30 Bipolar disord, crnt epsd depress, mild or mod severt, unsp L89.229 Pressure ulcer of left hip, unspecified stage G82.20 Paraplegia, unspecified E43 Unspecified severe protein-calorie malnutrition Office Visit 04/05/2018 [facility] Sangeeta R00.0 Tachycardia, 2:36p Assoc,darling Rogers, [employer] unspecified Hospitalists [id number] Suicide attempt, initial encounter L89.229 Pressure ulcer of left hip, unspecified stage I10 Essential (primary) hypertension Office Visit 04/04/2018 [facility] xA Suicide 2:36p Assoc,pc Ken, [employer] attempt, Hospitalists initial encounter L89.229 Pressure ulcer of left hip, unspecified stage I10 Essential (primary) hypertension G82.20 Paraplegia, unspecified Z98.2 Presence of cerebrospinal fluid drainage device Office Visit 04/03/2018 [facility] xA Suicide 2:35p Assoc,pc Ken, [employer] attempt, Hospitalists initial encounter L89.229 Pressure ulcer of left hip, unspecified stage I10 Essential (primary) hypertension G82.20 Paraplegia, unspecified Z98.2 Presence of cerebrospinal fluid drainage device Office Visit 04/02/2018 [facility] xA Suicide 2:35p Assoc,pc Ken, [employer] attempt, Hospitalists initial encounter L89.229 Pressure ulcer of left hip, unspecified stage I10 Essential (primary) hypertension E78.5 Hyperlipidemia, unspecified G82.20 Paraplegia, unspecified Z98.2 Presence of cerebrospinal fluid drainage device Office Visit 04/01/2018 2:34p [facility] Karina Ortiz, F31.0 Bipolar Assoc,pc N.P. 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 collapse Hospitalists I95.9 Hypotension, unspecified L89.229 Pressure ulcer of left hip, unspecified stage E78.5 Hyperlipidemia, unspecified G82.20 Paraplegia, unspecified Office Visit 03/30/2018 2:34p [facility] Karina Ortiz, T1xA Suicide Assoc,pc N.P. 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 at [facility]01/09/2019 - Jovana Pinzon, [id number] Other chronic osteomyelitis, left thighFollow up:3-4 ugxyyL41.2 fish flipper (current) use of antibiotics
--- OUTSIDE RECORDS SUMMARY | 2019-01-10 14:10 | XMS REPORT | Continuity of Care Document ---
:1965 External Reference #:[id number] Author Name Sayda Gilliland Care Team Providers Name Role Phone Christian Rodriguez M.D. Care Team Information Estimator Unavailable Payers Date Identification Numbers Payment Provider Subscriber Policy Number: [id number] Medicare Baylee Brooks PayID: [id number] [address] [place] [address] Expires: 2017 Policy Number: [id number] Medicaid Baylee [employer] Group Name: 1 1 [address] PayID: [id number] [place] [address] Advance Directives Description No Information Available Problems Description No Information Family History Date Family Member(s) Observation Comments General unknown adopted Social History Type Date Description Comments Sex Unknown Lives With assisted Occupation Disabled ETOH Use Denies alcohol use Tobacco Use Start: Unknown End: Patient is a former smoked 1.5 ppd from Unknown smoker age [age] Smoking Status Reviewed: 12/13/18 Patient is a former smoked 1.5 ppd from smoker age [age] Exercise Type/Frequency Exercises regularly Allergies, Adverse Reactions, Alerts Active Allergies Reaction Severity Comments Date Percocet sweats, itching 05/21/2018 Medications Active Medications SIG Qnty Indications Ordering Date Provider Morphine Sulfate Unknown 15mg Tablets Vancomycin IV 1000 mg IV q 12 Unknown hrs at [place] Metformin HCL 1 by mouth twice Unknown [...] Unknown 3mg Capsules every night at bedtime Magnesium Oxide 1 by mouth every Unknown 400mg Tablets day Colace 1 tab twice daily Unknown 100mg Capsules Cholecalciferol once daily Unknown Atorvastatin Calcium 1 by mouth every Unknown 10mg day Tablets Tylenol 2 tablets every 4 Unknown 325mg Capsules hours as needed for pain Pregabalin po tid Unknown Miralax 17 gram once a Unknown [id number] Packet day prn Diphenhydramine HCL 1 po q 6 hrs as Unknown 25mg needed Capsules Dantrolene Sodium 1 po tid Unknown Cyanocobalamin po qd Unknown Santyl apply ointment to Unknown 250Unit/GM Ointment wound as directed daily Eliquis 1 by mouth twice Unknown 5mg Tablets a day History Medications Olanzapine one tablet twice [...] 30 milliliters by mouth Unknown - 12/12/2018 [id number]/5ML q6hr as needed Suspension indigestion Tramadol HCL 1 tablet by mouth every 8 Unknown - 12/12/2018 50mg Tablets hours as needed pain Temazepam 1 tablet by mouth once Unknown - 12/12/2018 15mg Capsules daily at bedtime Fleet Enema one enema rectally as Unknown - 12/12/2018 7-19GM/118ML Enema needed every 24 hours Doxycycline Hyclate one tablet twice daily Unknown - 2018 100mg Capsules Immunizations Description No Information Available Vital Signs Date Vital Result Comment 12/13/2018 2:47pm Height 72 inches 6'0" Weight [...] Result H/L Range Note Laboratory test 11/19/2018 [facility] Cytology SEE RESULT [address] [employer] [place] [address] [phone] Body Fluid C&S 11/19/2018 [facility] Body Fluid SEE RESULT [address] [place] [address] Stain [phone] Comp Metabolic 11/01/2018 [facility] Sodium 134 mmol/L Low 135 -[address] [place] [address] [phone] Potassium 4.8 mmol/L N 3.5-5.0 Chloride 97 [...] Egfr 133.9 >60 3 Laboratory test 11/01/2018 [facility] C Reactive 129.46 mg/L High <8.[address] [place] [address] [phone] CBC Auto Diff 11/01/2018 [facility] White Blood 12.0 High 3.5- 10.[address] Count 10^3/uL [place], [place] [id number] [phone] Red Blood Count 3.24 10^6/uL Low 4.18-5.48 [...] Blood Cells % 0 Laboratory test 11/01/2018 [facility] Erythrocyte Sed 126 mm/Hr High 0-20 [address] [place] [address] [phone] BUN/Creat/GFR 11/01/2018 [facility] Poc Blood Urea 16 mg/dL N 8-[address] [place] [address] [phone] Poc Creatinine 0.8 mg/dL N 0.6-1.3 5 Poc BUN/Creatinine Ratio 20.0 N 8-20 Egfr Non- 101.1 >60 Egfr 122.4 >60 6 1 SEE RESULT BELOW Name: BAYLEE BROOKS : [address]: Ernie Sanz MD Acct: [id number] Unit: [id number] AGE: 53 Location: Re11/19/18 SEX: M Status: REG REF SPEC: [id number] GLORIA: 11/19/18- SUBM DR: Ernie Sanz MD REQ: [id number] RECD: 11/19/181108 STATUS: SOUT _ ORDERED: FNA INTERP RPT FINAL DIAGNOSIS Left hip fluid, fine needle aspiration: -- Negative for malignant cells. -- Inflammation. 1. HIP LEFT - LEFT HIP ABSCESS FINE NEEDLE ASPIRATION CLINICAL HISTORY Left hip fine needle aspiration. GROSS DESCRIPTION 1.5 ml of clear fluid. Signed by and Reported on: Eugenie Dia MD 11/19/18 1551 END OF REPORT DEPARTMENT OF PATHOLOGY, [address] [place] [address] Carter Gonzalez M.D. Director [facility] # [id number] 2 SEE RESULT BELOW Name: BAYLEE BROOKS : [address]: Ernie Sanz MD Acct: [id number] Unit: [id number] AGE: 53 Location: SP Re11/19/18 SEX: M Status: REG REF SPEC: [id number] GLORIA: 11/19/18-[address] [facility] [address]: Ernie Sanz MD REQ: [id number] RECD: 11/19/18 STATUS: COMP BRITTNI DR: Zoie Alexander MD _ SOURCE: JOINT FLUI SPDESC:HIP LEFT ORDERED: BF Cult/GS, MRSA/SA SSTI COMMENTS: Verbal to [id number] by [id number] at 1408 on 11/20/18. Results read back [...] CONTINUED ON NEXT PAGE DEPARTMENT OF PATHOLOGY, [address], [place], [place] [address] Carter Gonzalez M.D. Director [facility] # [id number] Patient: BAYLEE BROOKS [id number] (Continued) Specimen: [id number] Collected: 11/19/18-1037 Received: 11/19/18 (Continued) Procedure Result Reported Site Body Fluid Culture Final (continued) 11/23/18 5692 1. MRSA (continued) M.I.C. RX --------- ------ Vancomycin 1 S Imipenem-Deduced R * Ampicillin/Sulbactam-Deduced R Cefazolin-Deduced R * These antibiotics are not available in the [facility] Formulary Contact the Microbiology Department for any additional antibiotic reporting. MRSA/S. aureus SSTI PCR Final 11/20/18- 1245 ML Organism 1 MRSA POSITIVE Organism 2 S.AUREUS POSITIVE * ML - Main Lab . END OF REPORT DEPARTMENT OF PATHOLOGY, [address] [place] [address] Carter Gonzalez M.D. Director [facility] # [id number] 3 Because ethnic data is not always [...] <15 (or dialysis) 4 Test Performed by: [facility] [address], [place] [address] Carter Gonzalez M.D. Director of Laboratory 5 Surgery Specialist: [id number] 6 Because ethnic data is not always [...] (or dialysis) Procedures Date Code Description Status 12/11/2018 55130 Debridement Skin, Subcutaneous Tissue & Muscle Completed 11/27/2018 11756 Debridement Skin, Subcutaneous Tissue & Muscle Completed 11/23/2018 56329 Arthrotomy Hip W/Drainage Completed 11/22/2018 58677 Debridement Muscle/Fascia,Epidermis/Dermis/Tissue,Addtl 20 Completed SQ CM 11/22/2018 55551 Debridement Skin, Subcutaneous Tissue & Muscle Completed 11/21/2018 60379 ECHO Transthorasic Realtime 2D W Doppler & Color Flow Hosp Completed 11/13/2018 67037 Debridement Muscle/Fascia,Epidermis/Dermis/Tissue,Addtl 20 Completed SQ CM 11/13/2018 25718 Debridement Tissue/Muscle/Bone Completed 11/13/2018 19859 Debridement Skin, Subcutaneous Tissue & Muscle Completed 11/06/2018 61385 Debridement Skin,& sq Tissue Completed 11/06/2018 06524 Debridement Skin, Subcutaneous Tissue & Muscle Completed 11/06/2018 80152 Debridement Muscle/Fascia,Epidermis/Dermis/Tissue,1St 20 Completed SQ CM 11/06/2018 51041 Debridement Muscle/Fascia,Epidermis/Dermis/Tissue,Addtl 20 Completed SQ CM 10/30/2018 46668 Debridement Muscle/Fascia,Epidermis/Dermis/Tissue,1St 20 Completed SQ CM 10/30/2018 39194 Debridement Skin,& sq Tissue Completed 04/23/2018 87734 EKG, Interpretation Only Completed 04/20/2018 21759 EKG, Interpretation Only Completed 04/07/2018 98991 ECHO Transthorasic Realtime 2D W Doppler & Color Flow Hosp Completed 04/04/2018 06001 EKG, Interpretation Only Completed 04/01/2018 01581 EEG Recording Awake & Asleep Completed 03/31/2018 35724 EKG, Interpretation Only Completed Encounters Type Date Location Provider Dx Diagnosis Office Visit 12/04/2018 [facility] Karla Walker M86.652 Other chronic 10:19a darling Rico DO osteomyelitis, Hospitalists left thigh G92 Toxic encephalopathy 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 classd elswhr G82.20 Paraplegia, unspecified Office Visit 12/03/2018 10:18a [facility] Karla G92 Toxic encephalopathy Assoc,darling Walker DO Hospitalists M86.652 Other chronic osteomyelitis, left thigh L97.226 Non-prs chr ulc of left calf with bone invl w/o evd of necr N31.9 Neuromuscular dysfunction of bladder, unspecified Office Visit 12/03/2018 8:45a [facility] Jovana Cee L89.314 Pressure ulcer Center AT [facility] [place], WINCH DERRICK OPERATOR of right buttock, stage 4 L89.94 Pressure ulcer of unspecified site, stage 4 G82.20 Paraplegia, unspecified E11.9 Type 2 diabetes mellitus without complications Z78.9 Other specified health status Office Visit 12/02/2018 [facility] M86.652 Other chronic 10:18a Assdarling white M.D. osteomyelitis, left Hospitalists thigh R41.82 Altered mental status, unspecified R00.0 Tachycardia, unspecified R50.9 Fever, unspecified [facility] Other chronic 10:17a Assdarling white M.D. osteomyelitis, left Hospitalists thigh 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 classd elswhr E11.622 Type 2 diabetes mellitus with other skin ulcer L97.226 Non-prs chr ulc of left calf with bone invl w/o evd of necr D50.0 Iron deficiency anemia secondary to blood loss (chronic) [facility].652 Other chronic 9:57a darling Rico M.D. osteomyelitis, left Hospitalists thigh E11.622 Type 2 diabetes mellitus with other skin ulcer L97.226 Non-prs chr ulc of left calf with bone invl w/o evd of necr D50.0 Iron deficiency anemia secondary to blood loss (chronic) R50.9 Fever, unspecified Office Visit 11/29/2018 [facility] E11.69 Type 2 diabetes 7:09a For Infectious [place] [employer]CH DERRICK OPERATOR mellitus with Diseases other specified complication M86.652 Other chronic osteomyelitis, left thigh D72.829 Elevated white blood cell count, unspecified G82.20 Paraplegia, unspecified Office Visit 11/29/2018 [facility] M86.652 Other chronic 11:24a Assdarling white M.D. osteomyelitis, left Hospitalists thigh 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 classd elswhr B96.4 Proteus (mirabilis) (morganii) causing dis classd elswhr N39.0 Urinary tract infection, site not specified D62 Acute posthemorrhagic anemia Office Visit 11/28/2018 [facility] M86.652 Other chronic 11:24a Assocdarling M.D. osteomyelitis, left Hospitalists thigh 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 classd elswhr R79.89 Other specified abnormal findings of blood chemistry I95.9 Hypotension, unspecified Office Visit 11/27/2018 [facility] E11.69 Type 2 diabetes 7:07a For Infectious [place] WINCH DERRICK OPERATOR mellitus with Diseases other specified complication M86.652 Other chronic osteomyelitis, left thigh D72.829 Elevated white blood cell count, unspecified G82.20 Paraplegia, unspecified Office Visit 11/27/2018 [facility] John Valiente L89.45 Pressr ulc of 11:24a Assoc,darling Diallo MD contig site of Hospitalists back,buttock & hip, unstageable M86.652 Other chronic osteomyelitis, left thigh R79.89 Other specified abnormal findings of blood chemistry Office Visit 11/26/2018 9:00a [facility] Coleman L89.314 Pressure ulcer Center AT [facility] [place], WINCH DERRICK OPERATOR of right buttock, stage 4 L89.94 Pressure ulcer of unspecified site, stage 4 M86.652 Other chronic osteomyelitis, left thigh 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 classd elswhr Z78.9 Other specified health status G82.20 Paraplegia, unspecified [facility] M86.652 Other chronic 11:23a darling Rico MD osteomyelitis, left Hospitalists thigh R79.89 Other specified abnormal findings of blood chemistry [facility] M86.652 Other chronic 11:23a darling Rico MD osteomyelitis, left Hospitalists thigh I95.9 Hypotension, unspecified R79.89 Other specified abnormal findings of blood chemistry Office Visit 11/25/2018 [facility] Jovana Cee M86.652 Other chronic 7:05a For Infectious [place], WINCH DERRICK OPERATOR osteomyelitis, left Diseases thigh L02.416 Cutaneous abscess of left lower limb 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 classd elswhr E11.69 Type 2 diabetes mellitus with other specified complication Z96.0 Presence of urogenital implants Office Visit [facility]/24/[facility] M86.652 Other chronic 11:22a darling Rico MD osteomyelitis, left Hospitalists thigh I95.9 Hypotension, unspecified E11.9 Type 2 diabetes mellitus without complications R07.9 Chest pain, unspecified Office Visit 11/23/2018 [facility] Woody Choudhury M86.652 Other chronic 11:22a M.D. osteomyelitis, left thigh Office Visit 11/22/2018 [facility] Betzaida Harp M86.652 Other chronic 7:00a Infectious [place], osteomyelitis, left Diseases M.D. thigh L02.416 Cutaneous abscess of left lower limb 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 classd elswhr R00.0 Tachycardia, unspecified E11.69 Type 2 diabetes mellitus with other specified complication R82.998 Other abnormal findings in urine Office Visit 11/22/2018 11:21a [facility] Shaunna M86.652 Other chronic Zoya Doto, osteomyelitis, left WIN[employer]ICK OPERATOR thigh 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 classd elswhr I95.9 Hypotension, unspecified R00.0 Tachycardia, unspecified G82.20 Paraplegia, unspecified Office Visit 11/22/2018 10:37a Orthopedic Tori Grover, 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 resis [facility] staph infct C.M.A. causing diseases classd elswhr M86.652 Other chronic osteomyelitis, left thigh Office Visit 11/21/2018 11:21a [facility] L97.929 Non-prs Assoc,pc [place], WINCH DERRICK OPERATOR chronic ulc Hospitalists unsp prt of l low leg w unsp severity L89.45 Pressr ulc of contig site of back,buttock & hip, unstageable 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 classd elswhr M86.652 Other chronic osteomyelitis, left thigh G93.40 Encephalopathy, unspecified R00.0 Tachycardia, unspecified R79.89 Other specified abnormal findings of blood chemistry G82.20 Paraplegia, unspecified Office Visit 11/21/2018 3:15p Orthopedic Samia Menendez, 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 resis [facility] [place] staph infct C.M.A. causing diseases classd elswhr M86.652 Other chronic osteomyelitis, left thigh Office Visit 11/07/2018 2:20p [facility] Shemar Harp L97.929 Non- prs Infectious Rosa Huggins chronic ulc Diseases unsp prt of l low leg w unsp severity M86.652 Other chronic osteomyelitis, left thigh 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 classd elswhr Office Visit 10/16/2018 9:30a Wound Care Ernie Carias89.153 Pressure ulcer Center AT [facility] MD Umu of sacral region, stage 3 L97.929 Non-prs chronic ulc unsp prt of l low leg w unsp severity Office Visit 09/04/2018 9:30a [facility] Center Ernie Carias89.323 Pressure ulcer AT [facility] MD Umu of left buttock, stage 3 Office Visit 08/08/2018 1:40p [facility] Betzaida Harp M86.652 Other chronic Infectious [place] Huggins osteomyelitis, Diseases left thigh 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 classd elswhr Z79.2 half-way (current) use of antibiotics Office Visit 07/10/2018 11:15a [facility] Center Ernie Carias89.323 Pressure ulcer AT [facility] MD Umu of left buttock, stage 3 Office Visit 06/24/2018 2:40p [facility] Shemar Harp M86.652 Other chronic Infectious [place] Huggins osteomyelitis, Diseases left thigh 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 classd elswhr Z79.2 half-way (current) use of antibiotics M25.551 Pain in right hip Office Visit 06/19/2018 10:00a Wound Care Ernie Van.323 Pressure ulcer Center AT [facility] MD Umu of left buttock, stage 3 Office Visit 06/05/2018 9:30a Wound Care Ernie Van.323 Pressure ulcer Center AT [facility] MD Umu of left buttock, stage 3 M86.652 Other chronic osteomyelitis, left thigh G82.20 Paraplegia, unspecified Office Visit 05/21/2018 [facility] Shemar Harp M86.652 Other chronic 9:50a For Infectious [place] Huggins osteomyelitis, left Diseases thigh 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 classd elswhr L89.150 Pressure ulcer of sacral region, unstageable Office Visit 05/08/2018 [facility] John Valiente R45.851 Suicidal 9:18a Assocdarling MD ideations Hospitalists I82.412 Acute embolism and thrombosis of left femoral vein L98.419 Non-pressure chronic ulcer of buttock with unsp severity E11.622 Type 2 diabetes mellitus with other skin ulcer L98.492 Non-prs chronic ulcer of skin of sites w fat layer exposed M86.652 Other chronic osteomyelitis, left thigh E43 Unspecified severe protein-calorie malnutrition G82.20 Paraplegia, unspecified Office Visit 05/05/2018 9:18a [facility] Lorraine I82.412 Acute embolism Assocdarling M.D. and thrombosis Hospitalists of left femoral [...] diseases classd elswhr Office Visit 04/30/2018 9:18a [facility] [place] R45.851 Suicidal Assoc,darling Kamara M.D. ideations Hospitalists I82.412 Acute embolism and thrombosis of left femoral vein E43 Unspecified severe protein-calorie malnutrition G82.20 Paraplegia, unspecified Office Visit 04/28/2018 9:17a [facility] [address], E11.622 Type 2 Assocdarling M.D. diabetes Hospitalists mellitus with other skin ulcer L98.499 Non-pressure chronic ulcer of skin of sites w unsp severity G82.20 Paraplegia, unspecified B96.1 Klebsiella pneumoniae as the cause of diseases classd elswhr N39.0 Urinary tract infection, site not specified E43 Unspecified severe protein-calorie malnutrition Office Visit 04/24/2018 [facility] Shemar Harp M86.652 Other chronic 10:30a For Infectious [place] Huggins osteomyelitis, left Diseases thigh R82.71 Bacteriuria Z96.0 Presence of urogenital implants Office Visit 04/23/2018 [facility] E43 Unspecified severe 9:17a Assoc,darling [place], WINCH DERRICK OPERATOR protein-calorie Hospitalists malnutrition G82.20 Paraplegia, unspecified B96.1 Klebsiella pneumoniae as the cause of diseases classd elswhr N39.0 Urinary tract infection, site not specified Office Visit 04/22/2018 [facility] Shemar Harp M86.652 Other chronic 10:02a For Infectious Rosa Huggins osteomyelitis, left Diseases thigh 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 ideations [...] dysfunction of bladder, unspecified Office Visit 04/17/2018 [facility] Raoul T1xA Suicide 2:39p darling Rico M.D. 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 attempt, Hospitalists initial encounter L89.229 Pressure ulcer of left hip, unspecified stage E43 Unspecified severe protein-calorie malnutrition G82.20 Paraplegia, unspecified I10 Essential (primary) hypertension E78.5 Hyperlipidemia, unspecified Office Visit 04/15/2018 [facility] Valiente T14xA Suicide 2:39p Assdarling white MD attempt, Hospitalists initial encounter L89.229 Pressure ulcer of left hip, unspecified stage E43 Unspecified severe protein-calorie malnutrition G82.20 Paraplegia, unspecified M62.830 Muscle spasm of back I10 Essential (primary) hypertension Office Visit 04/14/2018 [facility] Valiente T14.xA Suicide 2:38p darling Rico MD attempt, Hospitalists initial encounter L89.229 Pressure ulcer of left hip, unspecified stage M62.830 Muscle spasm of back E43 Unspecified severe protein-calorie malnutrition G82.20 Paraplegia, unspecified I10 Essential (primary) hypertension Office Visit 04/13/2018 [facility] John Rocco T14.xA Suicide 2:38p darling Rico MD attempt, Hospitalists initial encounter L89.229 Pressure ulcer of left hip, unspecified stage M62.830 Muscle spasm of back E43 Unspecified severe protein-calorie malnutrition G82.20 Paraplegia, unspecified I10 Essential (primary) hypertension Office Visit 04/12/2018 [facility] Valiente T14.xA Suicide 2:37p Assoc,pc [place], MD attempt, Hospitalists initial encounter L89.229 Pressure ulcer of left hip, unspecified stage E43 Unspecified severe protein-calorie malnutrition G82.20 Paraplegia, unspecified I10 Essential (primary) hypertension Office Visit 04/11/2018 [facility] John Valiente xA Suicide 2:37p Assoc,darling Diallo MD attempt, Hospitalists initial encounter E43 Unspecified severe protein-calorie malnutrition L89.229 Pressure ulcer of left hip, unspecified stage G82.20 Paraplegia, unspecified I10 Essential (primary) hypertension Office Visit 04/10/2018 [facility] Shaunna xA Suicide 2:36p Assoc,darling Henry, attempt, Hospitalists WINCH DERRICK OPERATOR initial encounter F31.30 Bipolar disord, crnt epsd depress, mild or mod severt, unsp L89.229 Pressure ulcer of left hip, unspecified stage G82.20 Paraplegia, unspecified E43 Unspecified severe protein-calorie malnutrition Office Visit 04/05/2018 [facility] R00.0 Tachycardia, 2:36p Assoc,pc Rogers, WINCH DERRICK OPERATOR unspecified Hospitalists xA Suicide attempt, initial encounter L89.229 Pressure ulcer of left hip, unspecified stage I10 Essential (primary) hypertension Office Visit 04/04/2018 [facility] T1xA Suicide 2:36p Assoc,pc Rogers, WINCH DERRICK OPERATOR attempt, Hospitalists initial encounter L89.229 Pressure ulcer of left hip, unspecified stage I10 Essential (primary) hypertension G82.20 Paraplegia, unspecified 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 Office Visit 04/03/2018 [facility] xA Suicide 2:35p Assoc,pc Rogers, WINCH DERRICK OPERATOR attempt, Hospitalists initial encounter L89.229 Pressure ulcer of left hip, unspecified stage I10 Essential (primary) hypertension G82.20 Paraplegia, unspecified 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 collapse Hospitalists I95.9 Hypotension, unspecified L89.229 Pressure ulcer of left hip, unspecified stage E78.5 Hyperlipidemia, unspecified G82.20 Paraplegia, unspecified Office Visit 03/30/2018 2:34p [facility] Ortiz, T14.91xA Suicide Assoc,pc N.P. 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 at [facility]01/01/2019 2:30 pm - Jovana Pinzon NP at [facility]/10/2019 - Samia Menendez M.D.M86.652 Other chronic osteomyelitis, left thighFollow up:Follow up: 4 [id number] Pain in left hip
[2019-01-10 14:43] LABS: ABS Eosinophils 0.5 10^3/ul (0-0.6); ABS Lymphocytes 1.3 10^3/ul (1.0-4.8); ABS Monocytes 0.6 10^3/ul (0-0.8); ABS Neutrophils 7.9 10^3/ul (1.5-7.7); Eosinophil % 5.2 %; Hematocrit 26 % (42-52); Hemoglobin 8.3 g/dL (14.0-18.0); Lymphocyte % 12.8 %; Mean Corpuscular HGB Conc 32 g/dL (31-36); Mean Corpuscular Hemoglobin 26 pg (27-31); Mean Corpuscular Volume 81 fL (80-94); Mean Platelet Volume 7.6 fL (7.4-10.4); Platelet Count 394 10^3/uL (150-450); Red Blood Count 3.16 10^6 /uL (4.18-5.48); Red Cell Distribution Width 20 % (10-15); White Blood Count 10.4 10^3/uL (3.5-10.8)
[2019-01-10 15:04] LABS: Albumin 2.6 g/dL (3.2-5.2); Albumin/Globulin Ratio 0.6 (1-3); BUN/Creatinine Ratio 26.7 (8-20); Calcium 8.7 mg/dL (8.6-10.3); EGFR African American 89.4 (>60); EGFR Non-African American 73.9 (>60); Globulin 4.7 g/dL (2-4); Potassium 4.1 mmol/L (3.5-5.0); Total Bilirubin 0.2 mg/dL (0.2-1.0); Total Protein 7.3 g/dL (6.4-8.9)
[2019-01-10 16:41] LABS: Urine Appearance Turbid; Urine Bacteria Absent (Absent); Urine Bilirubin Negative (Negative); Urine Blood Negative (Negative); Urine Color Yellow; Urine Glucose Negative (Negative); Urine Ketones Negative (Negative); Urine Nitrite Negative (Negative); Urine Protein 3+(>=500 mg/dL) (Negative); Urine Red Blood Cell 3+(>10/hpf) (Absent); Urine Specific Gravity 1.019 (1.010-1.030); Urine Urobilinogen Negative (Negative); Urine White Blood Cell 3+(>20/hpf) (Absent)
[2019-01-10] MEDS ORDERED: Sulfamethox/Trimethoprim DS 800/160* TAB PO ONE (16:48)
[2019-01-10 18:18] VITALS: BP 125/78
== END 2019-01-10 18:17 | disposition home or self-care (01) ==
LOC: ED 13:42
DX: R33.9 Retention of urine, unspecified (principal); N39.0 Urinary tract infection, site not specified; T83.9XXA Unspecified complication of genitourinary prosthetic device, implant and graft, initial encounter; E11.9 Type 2 diabetes mellitus without complications; I10 Essential (primary) hypertension; Z86.14 Personal history of Methicillin resistant Staphylococcus aureus infection
CPT/HCPCS: 36415; 80053; 81003; 81015; 85025; 87077; 87086; 87184; 87186; 99283; A9270-GY

== ENCOUNTER 2020-06-16 13:04 | Inpatient (IN) ==
[2020-06-16] MEDS ORDERED: Ondansetron 4 mg VIAL 2 MG/ML 2 ml VIAL IV ONE (13:28)
[2020-06-16] MEDS ORDERED: NS 0.9% 1000 ml BAG 1,000 ML IV ONE (13:28)
[2020-06-16 14:26] LABS: ABS Eosinophils 0.2 10^3/ul (0-0.6); ABS Lymphocytes 1.6 10^3/ul (1.0-4.8); ABS Monocytes 0.6 10^3/ul (0-0.8); ABS Neutrophils 7.9 10^3/ul (1.5-7.7); Eosinophil % 2.3 %; Hematocrit 40 % (42-52); Hemoglobin 13.8 g/dL (14.0-18.0); Lymphocyte % 15.1 %; Mean Corpuscular HGB Conc 34 g/dL (31-36); Mean Corpuscular Hemoglobin 32 pg (27-31); Mean Corpuscular Volume 93 fL (80-94); Mean Platelet Volume 9.2 fL (7.4-10.4); Platelet Count 216 10^3/uL (150-450); Red Blood Count 4.31 10^6 /uL (4.18-5.48); Red Cell Distribution Width 15 % (10-15); White Blood Count 10.4 10^3/uL (3.5-10.8)
[2020-06-16 14:48] LABS: Urine Appearance Turbid; Urine Bilirubin Negative (Negative); Urine Blood 1+ (Negative); Urine Color Yellow; Urine Glucose 2+(150 mg/dL) (Negative); Urine Ketones Negative (Negative); Urine Nitrite Negative (Negative); Urine Protein 3+(>=500 mg/dL) (Negative); Urine Specific Gravity 1.014 (1.010-1.030); Urine Urobilinogen Negative (Negative)
[2020-06-16 14:52] LABS: Potassium 4.8 mmol/L (3.5-5.0)
[2020-06-16 14:53] LABS: Albumin 4.3 g/dL (3.2-5.2); Albumin/Globulin Ratio 1.1 (1-3); BUN/Creatinine Ratio 17.8 (8-20); C Reactive Protein 34.98 mg/L (<8.01); Calcium 9.8 mg/dL (8.6-10.3); EGFR African American 77.8 (>60); EGFR Non-African American 64.3 (>60); Magnesium 1.8 mg/dL (1.9-2.7); Total Bilirubin 0.3 mg/dL (0.2-1.0); Total Protein 8.3 g/dL (6.4-8.9)
[2020-06-16] MEDS ORDERED: Iodixanol (CONTRAST) 320 MG/ML 100 ML SDV IV ONE (14:59)
[2020-06-16] MEDS: NS 0.9% 1000 ml BAG 2,000 ML IV ONE ×2 (15:04→15:05)
[2020-06-16 15:07] LABS: Urine Bacteria 3+ (Absent); Urine Red Blood Cell Absent (Absent); Urine White Blood Cell 3+(>20/hpf) (Absent)
[2020-06-16] MEDS ORDERED: Piperacillin/Tazobac ADVAN 3.375 GM in NS 0.9% 100 ml BAG 100 ML IVPB ONE (15:15)
[2020-06-16] MEDS ORDERED: Magnesium Sulfate 2 gm BAG 2 GM/50 ML BAG IVPB ONE (18:42)
[2020-06-16] MEDS ORDERED: Morphine 4 MG/ML VIAL (1 ml) ONE (19:12)
[2020-06-16] MEDS ORDERED: Morphine 4 MG/ML VIAL (1 ml) IV ONE (19:21)
[2020-06-16] MEDS: NS 0.9% 1000 ml BAG 1,000 ML IV SCH (19:24)
[2020-06-16] MEDS: Aztreonam 1 GM in NS 0.9% 50 ML 50 ML IV SCH (21:35)
[2020-06-16] MEDS: Pantoprazole 80 mg in NS BAG 80 MG/250 ML BAG IV SCH (21:38)
[2020-06-16] MEDS: Senna TAB 8.6 mg TAB PO SCH (21:51)
[2020-06-16] MEDS: Enoxaparin 40 MG/0.4 ML SYR SUBCUT SCH (21:51)
[2020-06-16] MEDS: MINOCYCLINE 100 MG PO SCH (21:53)
[2020-06-16] MEDS: Latanoprost 0.005% 2.5 ml BTL RIGHT EYE SCH (21:53)
[2020-06-16] MEDS: Econazole 1% CREAM (NF) 1 TUBE TOPICAL SCH (21:54)
[2020-06-17] MEDS: Aztreonam 1 GM in NS 0.9% 50 ML 50 ML IV SCH ×3 (05:18→22:05)
[2020-06-17] MEDS: NS 0.9% 1000 ml BAG 1,000 ML IV SCH ×2 (05:32→22:08)
[2020-06-17] MEDS: Pantoprazole 80 mg in NS BAG 80 MG/250 ML BAG IV SCH ×2 (05:33→18:11)
[2020-06-17 09:23] LABS: ABS Eosinophils 0.3 10^3/ul (0-0.6); ABS Lymphocytes 0.9 10^3/ul (1.0-4.8); ABS Monocytes 0.4 10^3/ul (0-0.8); ABS Neutrophils 5.7 10^3/ul (1.5-7.7); Eosinophil % 3.7 %; Hematocrit 35 % (42-52); Hemoglobin 11.8 g/dL (14.0-18.0); Lymphocyte % 12.9 %; Mean Corpuscular HGB Conc 34 g/dL (31-36); Mean Corpuscular Hemoglobin 32 pg (27-31); Mean Corpuscular Volume 94 fL (80-94); Mean Platelet Volume 8.8 fL (7.4-10.4); Platelet Count 157 10^3/uL (150-450); Red Blood Count 3.73 10^6 /uL (4.18-5.48); Red Cell Distribution Width 14 % (10-15); White Blood Count 7.4 10^3/uL (3.5-10.8)
[2020-06-17] MEDS: Sulfamethox/Trimethoprim DS TAB 800/160 mg PO SCH (09:43)
[2020-06-17] MEDS: Econazole 1% CREAM (NF) 1 TUBE TOPICAL SCH ×2 (10:00→22:15)
[2020-06-17 10:08] LABS: BUN/Creatinine Ratio 17.6 (8-20); Calcium 8.8 mg/dL (8.6-10.3); EGFR African American 105.1 (>60); EGFR Non-African American 86.8 (>60); Potassium 4.8 mmol/L (3.5-5.0)
[2020-06-17] MEDS: Ondansetron 4 mg VIAL 2 MG/ML 2 ml VIAL IV PRN ×2 (12:16→18:20)
[2020-06-17 17:04] LABS: HDL Cholesterol 28.7 mg/dL
[2020-06-17] MEDS: Latanoprost 0.005% 2.5 ml BTL RIGHT EYE SCH (18:12)
[2020-06-17] MEDS ORDERED: Dextrose 50% Syringe 50 ml 25 GM/50 ML SYRINGE IV PUSH PRN (20:12)
[2020-06-17] MEDS: Senna TAB 8.6 mg TAB PO SCH (22:14)
[2020-06-17] MEDS: MINOCYCLINE 100 MG PO SCH (22:15)
[2020-06-17] MEDS: Enoxaparin 40 MG/0.4 ML SYR SUBCUT SCH (22:16)
[2020-06-17] MEDS: Polyethylene Glycol 3350 17 GM PACKET PO SCH (22:24)
[2020-06-18] MEDS: Pantoprazole 80 mg in NS BAG 80 MG/250 ML BAG IV SCH ×2 (03:18→16:24)
[2020-06-18] MEDS: Aztreonam 1 GM in NS 0.9% 50 ML 50 ML IV SCH ×3 (05:35→20:46)
[2020-06-18 07:28] LABS: Albumin 3.3 g/dL (3.2-5.2); Potassium 4.6 mmol/L (3.5-5.0); Total Bilirubin 0.3 mg/dL (0.2-1.0)
[2020-06-18 07:34] LABS: Albumin/Globulin Ratio 1.2 (1-3); BUN/Creatinine Ratio 15.4 (8-20); EGFR African American 105.1 (>60); EGFR Non-African American 86.8 (>60); Globulin 2.7 g/dL (2-4)
[2020-06-18] MEDS: NS 0.9% 1000 ml BAG 1,000 ML IV SCH (08:55)
[2020-06-18] MEDS: Sulfamethox/Trimethoprim DS TAB 800/160 mg PO SCH (11:07)
[2020-06-18] MEDS: Polyethylene Glycol 3350 17 GM PACKET PO SCH (11:07)
[2020-06-18] MEDS: Econazole 1% CREAM (NF) 1 TUBE TOPICAL SCH ×2 (11:08→20:43)
[2020-06-18] MEDS ORDERED: fentaNYL 100 mcg/2 ml 50 MCG/ML VIAL ONE (13:01)
[2020-06-18] MEDS ORDERED: Midazolam 10 mg/10 ml VIAL 1 mg/ml 10 ml VIAL (10 mg) ONE (13:01)
[2020-06-18] MEDS: Lactated Ringers 1000 ml BAG 1,000 ML IV SCH ×2 (16:49→23:37)
[2020-06-18] MEDS: Latanoprost 0.005% 2.5 ml BTL RIGHT EYE SCH (18:12)
[2020-06-18] MEDS: Senna TAB 8.6 mg TAB PO SCH (20:40)
[2020-06-18] MEDS: Enoxaparin 40 MG/0.4 ML SYR SUBCUT SCH (20:42)
[2020-06-18] MEDS: CMCS:Minocycline 50 mg CAP (NF) PO SCH (21:06)
[2020-06-19] MEDS: Aztreonam 1 GM in NS 0.9% 50 ML 50 ML IV SCH (05:14)
[2020-06-19] MEDS ORDERED: Lactated Ringers 1000 ml BAG 1,000 ML IV SCH (06:09)
[2020-06-19] MEDS: Pantoprazole VIAL 40 MG VIAL IV SCH (10:23)
[2020-06-19] MEDS: Polyethylene Glycol 3350 17 GM PACKET PO SCH (10:23)
[2020-06-19] MEDS: Sulfamethox/Trimethoprim DS TAB 800/160 mg PO SCH (10:24)
[2020-06-19] MEDS: Econazole 1% CREAM (NF) 1 TUBE TOPICAL SCH ×2 (10:24→20:19)
[2020-06-19] MEDS ORDERED: Magnesium CITRATE LIQ 300 ML BTL PO ONE (11:55)
[2020-06-19] MEDS: cefTRIAXone 1 gm/50 mL NS BAG 1 GM/50 ML BAG IVPB SCH (12:50)
[2020-06-19] MEDS: Lactated Ringers 1000 ml BAG 1,000 ML IV SCH ×2 (13:06→21:33)
[2020-06-19] MEDS: Latanoprost 0.005% 2.5 ml BTL RIGHT EYE SCH (18:20)
[2020-06-19] MEDS: Senna TAB 8.6 mg TAB PO SCH (20:30)
[2020-06-19] MEDS: CMCS:Minocycline 50 mg CAP (NF) PO SCH (20:31)
[2020-06-19] MEDS: Enoxaparin 40 MG/0.4 ML SYR SUBCUT SCH (20:32)
[2020-06-20] MEDS: Lactated Ringers 1000 ml BAG 1,000 ML IV SCH ×2 (04:16→10:52)
[2020-06-20] MEDS: Pantoprazole VIAL 40 MG VIAL IV SCH (08:53)
[2020-06-20] MEDS: Econazole 1% CREAM (NF) 1 TUBE TOPICAL SCH ×2 (08:54→22:12)
[2020-06-20] MEDS: Polyethylene Glycol 3350 17 GM PACKET PO SCH (08:54)
[2020-06-20] MEDS: Lactulose 30 ml UDC PO SCH ×3 (10:44→21:06)
[2020-06-20] MEDS: cefTRIAXone 1 gm/50 mL NS BAG 1 GM/50 ML BAG IVPB SCH (12:42)
[2020-06-20 13:29] LABS: ABS Eosinophils 0.3 10^3/ul (0-0.6); ABS Lymphocytes 0.8 10^3/ul (1.0-4.8); ABS Monocytes 0.3 10^3/ul (0-0.8); ABS Neutrophils 5.2 10^3/ul (1.5-7.7); Eosinophil % 4.3 %; Hematocrit 33 % (42-52); Hemoglobin 11.1 g/dL (14.0-18.0); Lymphocyte % 11.9 %; Mean Corpuscular HGB Conc 34 g/dL (31-36); Mean Corpuscular Hemoglobin 32 pg (27-31); Mean Corpuscular Volume 94 fL (80-94); Platelet Count 159 10^3/uL (150-450); Red Blood Count 3.47 10^6 /uL (4.18-5.48); Red Cell Distribution Width 15 % (10-15); White Blood Count 6.7 10^3/uL (3.5-10.8)
[2020-06-20 13:58] LABS: Albumin 3.4 g/dL (3.2-5.2); Calcium 8.7 mg/dL (8.6-10.3); EGFR African American 121.9 (>60); EGFR Non-African American 100.7 (>60); Globulin 3.3 g/dL (2-4); Indirect Bilirubin 0.2 mg/dL (0.3-1.0); Potassium 4.1 mmol/L (3.5-5.0); Total Bilirubin 0.3 mg/dL (0.2-1.0); Total Protein 6.7 g/dL (6.4-8.9)
[2020-06-20] MEDS: Latanoprost 0.005% 2.5 ml BTL RIGHT EYE SCH (17:34)
[2020-06-20] MEDS: Senna TAB 8.6 mg TAB PO SCH (21:07)
[2020-06-20] MEDS: Enoxaparin 40 MG/0.4 ML SYR SUBCUT SCH (21:08)
[2020-06-20] MEDS: CMCS:Minocycline 50 mg CAP (NF) PO SCH (21:10)
[2020-06-21 07:23] LABS: ABS Eosinophils 0.3 10^3/ul (0-0.6); ABS Lymphocytes 0.8 10^3/ul (1.0-4.8); ABS Monocytes 0.3 10^3/ul (0-0.8); Eosinophil % 4.1 %; Hematocrit 34 % (42-52); Hemoglobin 11.2 g/dL (14.0-18.0); Lymphocyte % 12.2 %; Mean Corpuscular HGB Conc 33 g/dL (31-36); Mean Corpuscular Hemoglobin 31 pg (27-31); Mean Corpuscular Volume 94 fL (80-94); Mean Platelet Volume 8.3 fL (7.4-10.4); Nucleated Red Blood Cells % 0.1; Platelet Count 155 10^3/uL (150-450); Red Blood Count 3.55 10^6 /uL (4.18-5.48); Red Cell Distribution Width 14 % (10-15); White Blood Count 6.4 10^3/uL (3.5-10.8)
[2020-06-21 07:39] LABS: BUN/Creatinine Ratio 10.4 (8-20); Calcium 8.8 mg/dL (8.6-10.3); EGFR African American 127.4 (>60); EGFR Non-African American 105.3 (>60); Potassium 4.2 mmol/L (3.5-5.0)
[2020-06-21] MEDS: Pantoprazole VIAL 40 MG VIAL IV SCH (09:25)
[2020-06-21] MEDS: Econazole 1% CREAM (NF) 1 TUBE TOPICAL SCH ×2 (09:30→21:36)
[2020-06-21] MEDS: Lactulose 30 ml UDC PO SCH ×3 (09:30→21:29)
[2020-06-21] MEDS: Polyethylene Glycol 3350 17 GM PACKET PO SCH (09:30)
[2020-06-21] MEDS: cefTRIAXone 1 gm/50 mL NS BAG 1 GM/50 ML BAG IVPB SCH (12:55)
[2020-06-21] MEDS: Morphine 2 MG/ML SYRINGE IV PRN ×3 (12:56→21:25)
[2020-06-21] MEDS ORDERED: PEG 3000 GI LAVAGE 1 GALLON PO ONE (13:00)
[2020-06-21] MEDS: Sulfamethox/Trimethoprim DS TAB 800/160 mg PO SCH (14:00)
[2020-06-21] MEDS: Latanoprost 0.005% 2.5 ml BTL RIGHT EYE SCH (17:33)
[2020-06-21] MEDS: Senna TAB 8.6 mg TAB PO SCH (21:32)
[2020-06-21] MEDS: Enoxaparin 40 MG/0.4 ML SYR SUBCUT SCH (21:33)
[2020-06-22] MEDS: Pantoprazole VIAL 40 MG VIAL IV SCH (09:05)
[2020-06-22] MEDS: Polyethylene Glycol 3350 17 GM PACKET PO SCH (09:05)
[2020-06-22] MEDS: Lactulose 30 ml UDC PO SCH ×3 (09:05→20:43)
[2020-06-22] MEDS: Econazole 1% CREAM (NF) 1 TUBE TOPICAL SCH ×2 (09:05→20:48)
[2020-06-22] MEDS: Sulfamethox/Trimethoprim DS TAB 800/160 mg PO SCH (09:21)
[2020-06-22 10:20] LABS: Albumin 3.6 g/dL (3.2-5.2); Albumin/Globulin Ratio 1.1 (1-3); BUN/Creatinine Ratio 9.4 (8-20); C Reactive Protein 61.39 mg/L (<8.01); Calcium 8.9 mg/dL (8.6-10.3); EGFR African American 113.7 (>60); EGFR Non-African American 93.9 (>60); Globulin 3.4 g/dL (2-4); Potassium 3.7 mmol/L (3.5-5.0); Total Bilirubin 0.3 mg/dL (0.2-1.0)
[2020-06-22] MEDS: Ondansetron 4 mg VIAL 2 MG/ML 2 ml VIAL IV PRN (12:11)
[2020-06-22] MEDS: cefTRIAXone 1 gm/50 mL NS BAG 1 GM/50 ML BAG IVPB SCH (12:12)
[2020-06-22] MEDS: Latanoprost 0.005% 2.5 ml BTL RIGHT EYE SCH (17:13)
[2020-06-22] MEDS: Morphine 2 MG/ML SYRINGE IV PRN (20:43)
[2020-06-22] MEDS: Enoxaparin 40 MG/0.4 ML SYR SUBCUT SCH (20:43)
[2020-06-22] MEDS: Senna TAB 8.6 mg TAB PO SCH (20:45)
[2020-06-23] MEDS: Sulfamethox/Trimethoprim DS TAB 800/160 mg PO SCH (08:46)
[2020-06-23] MEDS: Pantoprazole VIAL 40 MG VIAL IV SCH (08:52)
[2020-06-23] MEDS: Polyethylene Glycol 3350 17 GM PACKET PO SCH (09:01)
[2020-06-23] MEDS: Lactulose 30 ml UDC PO SCH ×3 (09:01→21:01)
[2020-06-23] MEDS: Econazole 1% CREAM (NF) 1 TUBE TOPICAL SCH ×2 (09:01→21:01)
[2020-06-23 09:06] LABS: Lipase 207 U/L (11.0-82.0)
[2020-06-23] MEDS: Latanoprost 0.005% 2.5 ml BTL RIGHT EYE SCH (17:22)
[2020-06-23] MEDS: Senna TAB 8.6 mg TAB PO SCH (21:01)
[2020-06-24 07:55] LABS: Lipase 342 U/L (11.0-82.0)
[2020-06-24] MEDS: Pantoprazole VIAL 40 MG VIAL IV SCH (09:11)
[2020-06-24] MEDS: Polyethylene Glycol 3350 17 GM PACKET PO SCH (09:12)
[2020-06-24] MEDS: Econazole 1% CREAM (NF) 1 TUBE TOPICAL SCH ×2 (09:12→21:10)
[2020-06-24] MEDS: Lactulose 30 ml UDC PO SCH ×2 (09:12→15:18)
[2020-06-24] MEDS: Ondansetron 4 mg VIAL 2 MG/ML 2 ml VIAL IV PRN (09:14)
[2020-06-24] MEDS: Sulfamethox/Trimethoprim DS TAB 800/160 mg PO SCH (09:14)
[2020-06-24] MEDS: Analgesic BALM 114 GM TOPICAL PRN ×2 (12:55→21:08)
[2020-06-24] MEDS ORDERED: Polyethylene Glycol 3350 17 GM PACKET PO PRN (16:21)
[2020-06-24] MEDS: Latanoprost 0.005% 2.5 ml BTL RIGHT EYE SCH (18:32)
[2020-06-24] MEDS ORDERED: GuaiFENesin DM 100 mg/10 mg in 5 ML UDC PO PRN (18:39)
[2020-06-24] MEDS: Morphine 2 MG/ML SYRINGE IV PRN (20:03)
[2020-06-24] MEDS: Senna TAB 8.6 mg TAB PO SCH (21:09)
[2020-06-25 08:26] LABS: Albumin 3.4 g/dL (3.2-5.2); BUN/Creatinine Ratio 10.4 (8-20); Calcium 8.5 mg/dL (8.6-10.3); EGFR African American 98.8 (>60); EGFR Non-African American 81.6 (>60); Globulin 3.3 g/dL (2-4); Total Bilirubin 0.2 mg/dL (0.2-1.0); Total Protein 6.7 g/dL (6.4-8.9)
[2020-06-25] MEDS ORDERED: Insulin GLARGINE 100 un/ml 10 ml VIAL SUBCUT ONE ×2 (08:30)
[2020-06-25] MEDS: Analgesic BALM 114 GM TOPICAL PRN (08:56)
[2020-06-25] MEDS: Pantoprazole VIAL 40 MG VIAL IV SCH (08:58)
[2020-06-25] MEDS: Polyethylene Glycol 3350 17 GM PACKET PO SCH (08:58)
[2020-06-25] MEDS: Sulfamethox/Trimethoprim DS TAB 800/160 mg PO SCH (08:59)
[2020-06-25] MEDS: Econazole 1% CREAM (NF) 1 TUBE TOPICAL SCH ×2 (08:59→20:03)
[2020-06-25] MEDS ORDERED: Dextrose 50% Syringe 50 ml 25 GM/50 ML SYRINGE IV PUSH PRN (11:48)
[2020-06-25] MEDS ORDERED: Iodixanol (CONTRAST) 320 MG/ML 100 ML SDV IV SCH (13:28)
[2020-06-25] MEDS: Morphine 2 MG/ML SYRINGE IV PRN ×3 (13:40→22:13)
[2020-06-25] MEDS: NS 0.9% 1000 ml BAG 1,000 ML IV SCH (13:41)
[2020-06-25] MEDS: Ondansetron 4 mg VIAL 2 MG/ML 2 ml VIAL IV PRN (13:49)
[2020-06-25] MEDS: Latanoprost 0.005% 2.5 ml BTL RIGHT EYE SCH (17:56)
[2020-06-25 19:48] LABS: Amylase 56 U/L (29-103)
[2020-06-25 19:49] LABS: Amylase 42 U/L (29-103)
[2020-06-25] MEDS: Senna TAB 8.6 mg TAB PO SCH (19:56)
[2020-06-26] MEDS: Morphine 2 MG/ML SYRINGE IV PRN ×4 (02:17→19:33)
[2020-06-26 06:48] LABS: Albumin 3.4 g/dL (3.2-5.2); CO2 Carbon Dioxide 20 mmol/L (22-32); Calcium 8.7 mg/dL (8.6-10.3); Chloride 102 mmol/L (101-111); Sodium 133 mmol/L (135-145)
[2020-06-26 06:54] LABS: ALT 21 U/L (7-52); Alkaline Phosphatase 67 U/L (34-104); Blood Urea Nitrogen 12 mg/dL (6-24); C Reactive Protein 13.65 mg/L (<8.01); EGFR African American 85.3 (>60); EGFR Non-African American 70.5 (>60); Globulin 3.4 g/dL (2-4); Glucose 331 mg/dL (70-100); Lipase 270 U/L (11.0-82.0); Total Protein 6.8 g/dL (6.4-8.9)
[2020-06-26 06:59] LABS: Anion Gap 11 mmol/L (2-11)
[2020-06-26] MEDS: Econazole 1% CREAM (NF) 1 TUBE TOPICAL SCH ×2 (07:42→19:43)
[2020-06-26] MEDS: NS 0.9% 1000 ml BAG 1,000 ML IV SCH (08:58)
[2020-06-26] MEDS: Pantoprazole VIAL 40 MG VIAL IV SCH (08:59)
[2020-06-26] MEDS: Polyethylene Glycol 3350 17 GM PACKET PO SCH (09:04)
[2020-06-26] MEDS: Latanoprost 0.005% 2.5 ml BTL RIGHT EYE SCH (17:40)
[2020-06-26] MEDS: Senna TAB 8.6 mg TAB PO SCH (19:33)
[2020-06-26] MEDS: Analgesic BALM 114 GM TOPICAL PRN (21:13)
[2020-06-26] MEDS ORDERED: Ondansetron ODT 4 mg TAB 4 MG TAB SL PRN (22:59)
[2020-06-26] MEDS ORDERED: Buffered Lidocaine 1% SYRIN 1 ml INTRADERM ONE (22:59)
[2020-06-27] MEDS: Morphine ORAL.SOLN 10 mg 2 mg/ml UDC 5 ml (10 mg) PO PRN ×2 (02:23→14:33)
[2020-06-27 07:16] LABS: ABS Eosinophils 0.4 10^3/ul (0-0.6); ABS Lymphocytes 1.3 10^3/ul (1.0-4.8); ABS Monocytes 0.4 10^3/ul (0-0.8); ABS Neutrophils 4.7 10^3/ul (1.5-7.7); Eosinophil % 5.4 %; Hematocrit 33 % (42-52); Hemoglobin 10.9 g/dL (14.0-18.0); Lymphocyte % 18.5 %; Mean Corpuscular HGB Conc 34 g/dL (31-36); Mean Corpuscular Hemoglobin 32 pg (27-31); Mean Corpuscular Volume 95 fL (80-94); Mean Platelet Volume 9.2 fL (7.4-10.4); Nucleated Red Blood Cells % 0.1; Platelet Count 185 10^3/uL (150-450); Red Blood Count 3.45 10^6 /uL (4.18-5.48); Red Cell Distribution Width 15 % (10-15); White Blood Count 6.8 10^3/uL (3.5-10.8)
[2020-06-27 07:36] LABS: Albumin 3.4 g/dL (3.2-5.2); BUN/Creatinine Ratio 8.5 (8-20); Calcium 8.9 mg/dL (8.6-10.3); EGFR African American 101.2 (>60); EGFR Non-African American 83.6 (>60); Globulin 3.3 g/dL (2-4); Potassium 4.9 mmol/L (3.5-5.0); Total Bilirubin 0.2 mg/dL (0.2-1.0); Total Protein 6.7 g/dL (6.4-8.9)
[2020-06-27] MEDS: Econazole 1% CREAM (NF) 1 TUBE TOPICAL SCH ×2 (09:03→20:41)
[2020-06-27] MEDS: Polyethylene Glycol 3350 17 GM PACKET PO SCH (09:04)
[2020-06-27] MEDS ORDERED: Insulin GLARGINE 100 un/ml 10 ml VIAL SUBCUT ONE (10:19)
[2020-06-27] MEDS: Latanoprost 0.005% 2.5 ml BTL RIGHT EYE SCH (16:53)
[2020-06-27] MEDS: Analgesic BALM 114 GM TOPICAL PRN (17:10)
[2020-06-27] MEDS: Senna TAB 8.6 mg TAB PO SCH (20:33)
[2020-06-28 07:26] LABS: ABS Eosinophils 0.3 10^3/ul (0-0.6); ABS Lymphocytes 1.2 10^3/ul (1.0-4.8); ABS Monocytes 0.4 10^3/ul (0-0.8); ABS Neutrophils 5.4 10^3/ul (1.5-7.7); Eosinophil % 4.6 %; Hematocrit 34 % (42-52); Hemoglobin 11.5 g/dL (14.0-18.0); Mean Corpuscular HGB Conc 33 g/dL (31-36); Mean Corpuscular Hemoglobin 32 pg (27-31); Mean Corpuscular Volume 94 fL (80-94); Mean Platelet Volume 9.1 fL (7.4-10.4); Nucleated Red Blood Cells % 0.1; Platelet Count 220 10^3/uL (150-450); Red Blood Count 3.65 10^6 /uL (4.18-5.48); Red Cell Distribution Width 15 % (10-15); White Blood Count 7.4 10^3/uL (3.5-10.8)
[2020-06-28 07:46] LABS: Albumin 3.6 g/dL (3.2-5.2); BUN/Creatinine Ratio 12.9 (8-20); Calcium 8.9 mg/dL (8.6-10.3); EGFR African American 93.1 (>60); Globulin 3.5 g/dL (2-4); Magnesium 1.7 mg/dL (1.9-2.7); Total Bilirubin 0.3 mg/dL (0.2-1.0); Total Protein 7.1 g/dL (6.4-8.9)
[2020-06-28 07:52] LABS: Potassium 5.2 mmol/L (3.5-5.0)
[2020-06-28] MEDS ORDERED: Magnesium Sulfate 2 gm BAG 2 GM/50 ML BAG IVPB ONE (08:17)
[2020-06-28] MEDS: Polyethylene Glycol 3350 17 GM PACKET PO SCH (08:55)
[2020-06-28] MEDS: Econazole 1% CREAM (NF) 1 TUBE TOPICAL SCH ×2 (09:10→20:52)
[2020-06-28] MEDS: Analgesic BALM 114 GM TOPICAL PRN (18:25)
[2020-06-28] MEDS: Latanoprost 0.005% 2.5 ml BTL RIGHT EYE SCH ×3 (20:23→20:38)
[2020-06-28] MEDS: Senna TAB 8.6 mg TAB PO SCH (20:34)
[2020-06-28] MEDS ORDERED: CMCS:Minocycline 50 mg CAP (NF) PO SCH (21:00)
[2020-06-29 07:10] LABS: Albumin 3.8 g/dL (3.2-5.2); BUN/Creatinine Ratio 15.4 (8-20); EGFR African American 90.1 (>60); EGFR Non-African American 74.4 (>60); Globulin 3.7 g/dL (2-4); Total Bilirubin 0.3 mg/dL (0.2-1.0); Total Protein 7.5 g/dL (6.4-8.9)
[2020-06-29 07:20] LABS: Potassium 5.1 mmol/L (3.5-5.0)
[2020-06-29] MEDS: Polyethylene Glycol 3350 17 GM PACKET PO SCH (08:46)
[2020-06-29] MEDS: Econazole 1% CREAM (NF) 1 TUBE TOPICAL SCH (08:52)
[2020-06-29 10:16] VITALS: BP 167/87
[2020-06-29 22:47] LABS: Tissue Transglutaminase IgA Ab <1.2 U/mL
[2020-06-29 23:17] LABS: Immunoglobulin A 234 mg/dL (61 - 356)
== END 2020-06-29 11:05 | DRG 871 ==
LOC: ED 13:04 → MED 17:39 → MEDTELE 06-18 04:03
PROVIDERS: ADMIT Internal Medicine; ATTEND Student in an Organized Health Care Education/Training Program

== ENCOUNTER 2020-08-16 13:06 | Inpatient (IN) ==
[2020-08-16 13:36] LABS: ABS Basophils 0.1 10^3/ul (0-0.2); ABS Lymphocytes 0.9 10^3/ul (1.0-4.8); ABS Monocytes 0.4 10^3/ul (0-0.8); ABS Neutrophils 9.1 10^3/ul (1.5-7.7); Eosinophil % 0.1 %; Hematocrit 38 % (42-52); Hemoglobin 12.4 g/dL (14.0-18.0); Lymphocyte % 8.6 %; Mean Corpuscular HGB Conc 33 g/dL (31-36); Mean Corpuscular Hemoglobin 30 pg (27-31); Mean Corpuscular Volume 91 fL (80-94); Mean Platelet Volume 10.5 fL (7.4-10.4); Nucleated Red Blood Cells % 0.2; Platelet Count 153 10^3/uL (150-450); Red Blood Count 4.17 10^6 /uL (4.18-5.48); Red Cell Distribution Width 15 % (10-15); White Blood Count 10.5 10^3/uL (3.5-10.8)
[2020-08-16 13:42] LABS: Urine Appearance Cloudy; Urine Bilirubin Negative (Negative); Urine Blood 1+ (Negative); Urine Color Amber; Urine Glucose Negative (Negative); Urine Ketones Negative (Negative); Urine Nitrite Negative (Negative); Urine Protein 2+(100 mg/dL) (Negative); Urine Urobilinogen Positive (Negative)
[2020-08-16 13:53] LABS: Albumin 2.7 g/dL (3.2-5.2); Albumin/Globulin Ratio 0.7 (1-3); BUN/Creatinine Ratio 26.6 (8-20); C Reactive Protein 50.87 mg/L (<8.01); Calcium 7.6 mg/dL (8.6-10.3); EGFR African American 85.3 (>60); EGFR Non-African American 70.5 (>60); Globulin 3.8 g/dL (2-4); Potassium 3.6 mmol/L (3.5-5.0); Total Bilirubin 1.1 mg/dL (0.2-1.0); Total Protein 6.5 g/dL (6.4-8.9)
[2020-08-16 13:54] LABS: Urine Bacteria 3+ (Absent); Urine Red Blood Cell 3+(>10/hpf) (Absent); Urine White Blood Cell 3+(>20/hpf) (Absent)
[2020-08-16 13:59] LABS: Activated Partial Thrombo Time 35.8 seconds (26.0-38.0); INR 1.79 (0.82-1.09)
[2020-08-16] MEDS ORDERED: Ciprofloxacin 400mg IVPREMIX 400 MG/200 ML BAG IVPB ONE (14:06)
[2020-08-16] MEDS ORDERED: NS 0.9% 1000 ml BAG 1,000 ML IV.FLUID IV ONE (14:06)
[2020-08-16 14:11] LABS: Troponin I 0.22 ng/mL (<0.03)
[2020-08-16] MEDS ORDERED: Iodixanol (CONTRAST) 320 MG/ML 100 ML SDV IV ONE (14:38)
[2020-08-16 14:52] LABS: Ferritin 326.1 ng/mL (24-336)
[2020-08-16 17:13] LABS: Troponin I 0.19 ng/mL (<0.03)
[2020-08-16] MEDS ORDERED: NS 0.9% 1000 ml BAG 1,000 ML IV ONE (18:27)
[2020-08-16] MEDS ORDERED: Ondansetron 4 mg VIAL 2 MG/ML 2 ml VIAL IV PRN (21:32)
[2020-08-16] MEDS ORDERED: Dextrose 50% Syringe 50 ml 25 GM/50 ML SYRINGE IV PUSH PRN (21:43)
[2020-08-16] MEDS ORDERED: NS 0.9% 1000 ml BAG 1,000 ML IV SCH (22:00)
[2020-08-17] MEDS: metroNIDAZOLE IV 500 MG/100ML 500 MG/100 ML BAG IVPB SCH ×3 (02:19→21:30)
[2020-08-17] MEDS: Aztreonam 1 GM in NS 0.9% 50 ML 50 ML IV SCH ×3 (03:23→21:48)
[2020-08-17 06:58] LABS: Hematocrit 32 % (42-52); Hemoglobin 10.4 g/dL (14.0-18.0); Mean Corpuscular HGB Conc 33 g/dL (31-36); Mean Corpuscular Hemoglobin 30 pg (27-31); Mean Corpuscular Volume 90 fL (80-94); Red Blood Count 3.52 10^6 /uL (4.18-5.48); Red Cell Distribution Width 15 % (10-15); White Blood Count 8.6 10^3/uL (3.5-10.8)
[2020-08-17 07:05] LABS: Albumin 2.3 g/dL (3.2-5.2); Calcium 6.9 mg/dL (8.6-10.3); Indirect Bilirubin 0.4 mg/dL (0.3-1.0); Potassium 2.9 mmol/L (3.5-5.0); Total Bilirubin 0.9 mg/dL (0.2-1.0)
[2020-08-17 07:11] LABS: Albumin/Globulin Ratio 0.7 (1-3); BUN/Creatinine Ratio 30.4 (8-20); EGFR African American 144.6 (>60); EGFR Non-African American 119.5 (>60); Globulin 3.2 g/dL (2-4); Total Protein 5.5 g/dL (6.4-8.9)
[2020-08-17 07:56] LABS: ABS Basophils 0.1 10^3/ul (0-0.2); ABS Eosinophils 0.1 10^3/ul (0-0.6); ABS Lymphocytes 1.2 10^3/ul (1.0-4.8); ABS Monocytes 0.5 10^3/ul (0-0.8); ABS Neutrophils 6.7 10^3/ul (1.5-7.7); Eosinophil % 1.5 %; Lymphocyte % 13.8 %; Nucleated Red Blood Cells % 0.1; Platelet Count Platelets clumped. 10^3/uL (150-450)
[2020-08-17] MEDS: KCL 20 MEQ/100 ML IVPREMIX 20 MEQ/100 ML BAG IV SCH ×2 (09:40→12:00)
[2020-08-17 09:50] LABS: Mean Platelet Volume 10.4 fL (7.4-10.4); Platelet Count 89 10^3/uL (150-450)
[2020-08-17] MEDS ORDERED: NS 0.9% 1000 ml BAG 1,000 ML IV SCH ×2 (11:45→17:35)
[2020-08-17 14:29] LABS: Magnesium 1.1 mg/dL (1.9-2.7)
[2020-08-17] MEDS: Latanoprost 0.005% 2.5 ml BTL RIGHT EYE SCH (17:13)
[2020-08-17] MEDS: Lactated Ringers 1000 ml BAG 1,000 ML IV SCH (19:31)
[2020-08-17] MEDS ORDERED: Magnesium Sulf 4 GM/100 ML IV 4,000 MG/100 ML BAG IVPB ONE (20:30)
[2020-08-17] MEDS ORDERED: Senna/Docusate 8.6/50 mg (NF) TAB PO SCH (21:00)
[2020-08-17] MEDS: Insulin GLARGINE 100 un/ml 10 ml VIAL SUBCUT SCH (21:42)
[2020-08-17] MEDS: CMCS: Minocycline 50 mg CAP (NF) PO SCH (21:46)
[2020-08-18] MEDS: Lactated Ringers 1000 ml BAG 1,000 ML IV SCH ×2 (03:36→20:43)
[2020-08-18] MEDS: Aztreonam 1 GM in NS 0.9% 50 ML 50 ML IV SCH (05:45)
[2020-08-18] MEDS: metroNIDAZOLE IV 500 MG/100ML 500 MG/100 ML BAG IVPB SCH ×3 (05:46→20:43)
[2020-08-18 06:13] LABS: BUN/Creatinine Ratio 22.1 (8-20); Calcium 7.2 mg/dL (8.6-10.3); EGFR Non-African American 121.5 (>60); Magnesium 1.9 mg/dL (1.9-2.7); Potassium 2.8 mmol/L (3.5-5.0)
[2020-08-18 06:54] LABS: ABS Eosinophils 0.1 10^3/ul (0-0.6); ABS Lymphocytes 1.2 10^3/ul (1.0-4.8); ABS Monocytes 0.3 10^3/ul (0-0.8); ABS Neutrophils 4.4 10^3/ul (1.5-7.7); Eosinophil % 1.9 %; Hematocrit 29 % (42-52); Hemoglobin 9.5 g/dL (14.0-18.0); Lymphocyte % 19.6 %; Mean Corpuscular HGB Conc 33 g/dL (31-36); Mean Corpuscular Hemoglobin 30 pg (27-31); Mean Corpuscular Volume 90 fL (80-94); Mean Platelet Volume 9.9 fL (7.4-10.4); Nucleated Red Blood Cells % 0.3; Platelet Count 71 10^3/uL (150-450); Red Cell Distribution Width 15 % (10-15); White Blood Count 6.1 10^3/uL (3.5-10.8)
[2020-08-18] MEDS: KCL 20 MEQ/100 ML IVPREMIX 20 MEQ/100 ML BAG IV SCH ×3 (08:34→14:29)
[2020-08-18] MEDS: Ondansetron 4 mg VIAL 2 MG/ML 2 ml VIAL IV SCH ×2 (13:17→18:11)
[2020-08-18] MEDS: Prochlorperazine 5 mg/ml 2 ml VIAL (10 mg) IV PRN (16:01)
[2020-08-18] MEDS: Ciprofloxacin 400mg IVPREMIX 400 MG/200 ML BAG IVPB SCH (16:01)
[2020-08-18] MEDS: Latanoprost 0.005% 2.5 ml BTL RIGHT EYE SCH (18:11)
[2020-08-18] MEDS: Insulin GLARGINE 100 un/ml 10 ml VIAL SUBCUT SCH (20:32)
[2020-08-18] MEDS: CMCS: Minocycline 50 mg CAP (NF) PO SCH (20:35)
[2020-08-19] MEDS: Ciprofloxacin 400mg IVPREMIX 400 MG/200 ML BAG IVPB SCH ×2 (02:49→15:13)
[2020-08-19] MEDS: metroNIDAZOLE IV 500 MG/100ML 500 MG/100 ML BAG IVPB SCH ×3 (04:51→22:59)
[2020-08-19] MEDS: Lactated Ringers 1000 ml BAG 1,000 ML IV SCH ×2 (04:59→17:49)
[2020-08-19 06:57] LABS: BUN/Creatinine Ratio 13.3 (8-20); Calcium 7.1 mg/dL (8.6-10.3); EGFR African American 131.3 (>60); EGFR Non-African American 108.5 (>60); Potassium 3.7 mmol/L (3.5-5.0)
[2020-08-19 07:01] LABS: ABS Eosinophils 0.1 10^3/ul (0-0.6); ABS Lymphocytes 0.7 10^3/ul (1.0-4.8); ABS Monocytes 0.3 10^3/ul (0-0.8); ABS Neutrophils 3.4 10^3/ul (1.5-7.7); Eosinophil % 1.9 %; Hematocrit 27 % (42-52); Hemoglobin 8.7 g/dL (14.0-18.0); Lymphocyte % 15.8 %; Mean Corpuscular HGB Conc 33 g/dL (31-36); Mean Corpuscular Hemoglobin 30 pg (27-31); Mean Corpuscular Volume 91 fL (80-94); Mean Platelet Volume 10.5 fL (7.4-10.4); Nucleated Red Blood Cells % 0.2; Platelet Count 52 10^3/uL (150-450); Red Blood Count 2.95 10^6 /uL (4.18-5.48); Red Cell Distribution Width 16 % (10-15); White Blood Count 4.5 10^3/uL (3.5-10.8)
[2020-08-19] MEDS: Ondansetron 4 mg VIAL 2 MG/ML 2 ml VIAL IV SCH ×3 (07:48→16:54)
[2020-08-19] MEDS: Analgesic BALM 114 GM TOPICAL SCH ×3 (08:28→22:58)
[2020-08-19] MEDS ORDERED: Linezolid 600 MG IVPREMIX(*) 600 MG/300 ML BAG IVPB SCH (11:00)
[2020-08-19] MEDS: Latanoprost 0.005% 2.5 ml BTL RIGHT EYE SCH (16:58)
[2020-08-19] MEDS: CMCS: Minocycline 50 mg CAP (NF) PO SCH (22:53)
[2020-08-19] MEDS: Insulin GLARGINE 100 un/ml 10 ml VIAL SUBCUT SCH (22:56)
[2020-08-20] MEDS: Lactated Ringers 1000 ml BAG 1,000 ML IV SCH ×2 (00:59→08:59)
[2020-08-20] MEDS: Ciprofloxacin 400mg IVPREMIX 400 MG/200 ML BAG IVPB SCH ×2 (02:49→17:23)
[2020-08-20] MEDS: metroNIDAZOLE IV 500 MG/100ML 500 MG/100 ML BAG IVPB SCH ×3 (06:03→22:22)
[2020-08-20 06:15] LABS: ABS Eosinophils 0.2 10^3/ul (0-0.6); ABS Lymphocytes 0.8 10^3/ul (1.0-4.8); ABS Monocytes 0.2 10^3/ul (0-0.8); Eosinophil % 2.9 %; Hematocrit 30 % (42-52); Hemoglobin 9.7 g/dL (14.0-18.0); Mean Corpuscular HGB Conc 32 g/dL (31-36); Mean Corpuscular Hemoglobin 29 pg (27-31); Mean Corpuscular Volume 91 fL (80-94); Mean Platelet Volume 10.9 fL (7.4-10.4); Nucleated Red Blood Cells % 0.3; Platelet Count 57 10^3/uL (150-450); Red Blood Count 3.29 10^6 /uL (4.18-5.48); Red Cell Distribution Width 16 % (10-15); White Blood Count 5.3 10^3/uL (3.5-10.8)
[2020-08-20 06:23] LABS: BUN/Creatinine Ratio 12.8 (8-20); Calcium 7.2 mg/dL (8.6-10.3); EGFR African American 125.5 (>60); EGFR Non-African American 103.7 (>60); Potassium 3.2 mmol/L (3.5-5.0)
[2020-08-20 07:13] LABS: Magnesium 1.2 mg/dL (1.9-2.7)
[2020-08-20] MEDS: Ondansetron 4 mg VIAL 2 MG/ML 2 ml VIAL IV SCH ×3 (08:34→17:53)
[2020-08-20] MEDS: KCL 20 MEQ/100 ML IVPREMIX 20 MEQ/100 ML BAG IV SCH ×2 (08:35→11:30)
[2020-08-20] MEDS: Analgesic BALM 114 GM TOPICAL SCH ×3 (09:17→22:32)
[2020-08-20] MEDS ORDERED: Iodixanol (CONTRAST) 320 MG/ML 100 ML SDV IV ONE (14:13)
[2020-08-20] MEDS: Prochlorperazine 5 mg/ml 2 ml VIAL (10 mg) IV PRN (14:30)
[2020-08-20] MEDS ORDERED: Magnesium Sulf 4 GM/100 ML IV 4,000 MG/100 ML BAG IVPB ONE (15:31)
[2020-08-20] MEDS: Latanoprost 0.005% 2.5 ml BTL RIGHT EYE SCH (17:53)
[2020-08-20] MEDS: CMCS: Minocycline 50 mg CAP (NF) PO SCH (22:01)
[2020-08-20] MEDS: Insulin GLARGINE 100 un/ml 10 ml VIAL SUBCUT SCH (22:30)
[2020-08-21] MEDS: Ciprofloxacin 400mg IVPREMIX 400 MG/200 ML BAG IVPB SCH ×2 (03:43→15:54)
[2020-08-21] MEDS: Lactated Ringers 1000 ml BAG 1,000 ML IV SCH ×2 (03:51→16:01)
[2020-08-21] MEDS: metroNIDAZOLE IV 500 MG/100ML 500 MG/100 ML BAG IVPB SCH ×3 (06:18→21:46)
[2020-08-21] MEDS: Ondansetron 4 mg VIAL 2 MG/ML 2 ml VIAL IV SCH ×3 (07:39→16:41)
[2020-08-21 07:52] LABS: Calcium 7.2 mg/dL (8.6-10.3); EGFR African American 142.2 (>60); EGFR Non-African American 117.5 (>60); Magnesium 1.7 mg/dL (1.9-2.7); Potassium 3.7 mmol/L (3.5-5.0)
[2020-08-21 08:04] LABS: ABS Basophils 0.1 10^3/ul (0-0.2); ABS Eosinophils 0.1 10^3/ul (0-0.6); ABS Lymphocytes 0.8 10^3/ul (1.0-4.8); ABS Monocytes 0.3 10^3/ul (0-0.8); ABS Neutrophils 5.1 10^3/ul (1.5-7.7); Eosinophil % 1.7 %; Hematocrit 29 % (42-52); Hemoglobin 9.5 g/dL (14.0-18.0); Lymphocyte % 12.4 %; Mean Corpuscular HGB Conc 33 g/dL (31-36); Mean Corpuscular Hemoglobin 30 pg (27-31); Mean Corpuscular Volume 90 fL (80-94); Mean Platelet Volume 11.4 fL (7.4-10.4); Nucleated Red Blood Cells % 0.2; Platelet Count 69 10^3/uL (150-450); Red Cell Distribution Width 16 % (10-15); White Blood Count 6.3 10^3/uL (3.5-10.8)
[2020-08-21] MEDS: Analgesic BALM 114 GM TOPICAL SCH ×3 (09:50→20:35)
[2020-08-21] MEDS ORDERED: Magnesium Sulfate 2 gm BAG 2 GM/50 ML BAG IVPB ONE (12:08)
[2020-08-21] MEDS: Latanoprost 0.005% 2.5 ml BTL RIGHT EYE SCH (17:16)
[2020-08-21] MEDS: Insulin GLARGINE 100 un/ml 10 ml VIAL SUBCUT SCH (20:33)
[2020-08-21] MEDS: CMCS: Minocycline 50 mg CAP (NF) PO SCH (20:36)
[2020-08-22] MEDS: Ciprofloxacin 400mg IVPREMIX 400 MG/200 ML BAG IVPB SCH ×2 (03:15→15:19)
[2020-08-22] MEDS: Lactated Ringers 1000 ml BAG 1,000 ML IV SCH ×2 (03:16→16:50)
[2020-08-22] MEDS: metroNIDAZOLE IV 500 MG/100ML 500 MG/100 ML BAG IVPB SCH ×3 (06:09→22:32)
[2020-08-22] MEDS: Ondansetron 4 mg VIAL 2 MG/ML 2 ml VIAL IV SCH ×3 (08:25→16:57)
[2020-08-22] MEDS: Analgesic BALM 114 GM TOPICAL SCH ×4 (08:33→20:27)
[2020-08-22] MEDS ORDERED: Magnesium Sulf 4 GM/100 ML IV 4,000 MG/100 ML BAG IVPB ONE (14:03)
[2020-08-22] MEDS: Latanoprost 0.005% 2.5 ml BTL RIGHT EYE SCH (17:58)
[2020-08-22] MEDS: CMCS: Minocycline 50 mg CAP (NF) PO SCH (20:28)
[2020-08-22] MEDS: Insulin GLARGINE 100 un/ml 10 ml VIAL SUBCUT SCH (20:29)
[2020-08-23] MEDS: Ciprofloxacin 400mg IVPREMIX 400 MG/200 ML BAG IVPB SCH (03:08)
[2020-08-23] MEDS: metroNIDAZOLE IV 500 MG/100ML 500 MG/100 ML BAG IVPB SCH (05:30)
[2020-08-23] MEDS: Ondansetron 4 mg VIAL 2 MG/ML 2 ml VIAL IV SCH ×2 (08:35→13:20)
[2020-08-23] MEDS: Analgesic BALM 114 GM TOPICAL SCH ×3 (08:36→20:49)
[2020-08-23] MEDS: Psyllium PAK PO SCH (13:11)
[2020-08-23] MEDS: Ondansetron 4 mg VIAL 2 MG/ML 2 ml VIAL IV PRN (13:12)
[2020-08-23] MEDS: Metoclopramide 5 MG/ML VIAL (10 mg) IV SCH ×2 (13:12→17:07)
[2020-08-23] MEDS: Lactated Ringers 1000 ml BAG 1,000 ML IV SCH (13:15)
[2020-08-23] MEDS: Latanoprost 0.005% 2.5 ml BTL RIGHT EYE SCH (17:07)
[2020-08-23] MEDS: CMCS: Minocycline 50 mg CAP (NF) PO SCH (20:40)
[2020-08-23] MEDS: Insulin GLARGINE 100 un/ml 10 ml VIAL SUBCUT SCH (20:49)
[2020-08-23] MEDS: Prochlorperazine 5 mg/ml 2 ml VIAL (10 mg) IV PRN (20:55)
[2020-08-24] MEDS: Lactated Ringers 1000 ml BAG 1,000 ML IV SCH ×2 (03:04→17:05)
[2020-08-24] MEDS: Analgesic BALM 114 GM TOPICAL SCH ×3 (08:19→21:46)
[2020-08-24] MEDS: Metoclopramide 5 MG/ML VIAL (10 mg) IV SCH ×2 (08:19→11:37)
[2020-08-24] MEDS: Psyllium PAK PO SCH (08:20)
[2020-08-24] MEDS ORDERED: Lorazepam PYXIS KEY PRN (12:16)
[2020-08-24] MEDS ORDERED: LORazepam 2 mg VIAL 1 ml IV PUSH ONE (12:18)
[2020-08-24] MEDS: Latanoprost 0.005% 2.5 ml BTL RIGHT EYE SCH (17:15)
[2020-08-24] MEDS: CMCS: Minocycline 50 mg CAP (NF) PO SCH (21:11)
[2020-08-24] MEDS: Insulin GLARGINE 100 un/ml 10 ml VIAL SUBCUT SCH (21:13)
[2020-08-25] MEDS: Analgesic BALM 114 GM TOPICAL SCH ×3 (08:10→20:26)
[2020-08-25] MEDS: Psyllium PAK PO SCH (08:10)
[2020-08-25] MEDS: Lactated Ringers 1000 ml BAG 1,000 ML IV SCH (08:13)
[2020-08-25] MEDS: Latanoprost 0.005% 2.5 ml BTL RIGHT EYE SCH (16:54)
[2020-08-25] MEDS: CMCS: Minocycline 50 mg CAP (NF) PO SCH (20:27)
[2020-08-25] MEDS: Insulin GLARGINE 100 un/ml 10 ml VIAL SUBCUT SCH (20:27)
[2020-08-26] MEDS: Analgesic BALM 114 GM TOPICAL PRN ×2 (05:39→21:00)
[2020-08-26] MEDS: Psyllium PAK PO SCH (09:12)
[2020-08-26 11:23] LABS: ABS Basophils 0.1 10^3/ul (0-0.2); ABS Eosinophils 0.1 10^3/ul (0-0.6); ABS Lymphocytes 1.8 10^3/ul (1.0-4.8); ABS Monocytes 0.6 10^3/ul (0-0.8); ABS Neutrophils 4.6 10^3/ul (1.5-7.7); Eosinophil % 0.8 %; Hematocrit 28 % (42-52); Hemoglobin 9.3 g/dL (14.0-18.0); Lymphocyte % 25.4 %; Mean Corpuscular HGB Conc 33 g/dL (31-36); Mean Corpuscular Hemoglobin 29 pg (27-31); Mean Corpuscular Volume 88 fL (80-94); Mean Platelet Volume 10.9 fL (7.4-10.4); Nucleated Red Blood Cells % 0.3; Platelet Count 44 10^3/uL (150-450); Red Cell Distribution Width 16 % (10-15); White Blood Count 7.2 10^3/uL (3.5-10.8)
[2020-08-26 11:44] LABS: BUN/Creatinine Ratio 15.4 (8-20); Calcium 7.6 mg/dL (8.6-10.3); EGFR African American 154.3 (>60); EGFR Non-African American 127.5 (>60)
[2020-08-26] MEDS: Nystatin TOP POWDER 15 GM BTL TOPICAL SCH ×3 (11:45→21:00)
[2020-08-26] MEDS: Ondansetron 4 mg VIAL 2 MG/ML 2 ml VIAL IV PRN (13:27)
[2020-08-26] MEDS: Latanoprost 0.005% 2.5 ml BTL RIGHT EYE SCH (17:31)
[2020-08-26] MEDS: CMCS: Minocycline 50 mg CAP (NF) PO SCH (20:59)
[2020-08-26] MEDS: Insulin GLARGINE 100 un/ml 10 ml VIAL SUBCUT SCH (21:01)
[2020-08-27] MEDS: Psyllium PAK PO SCH (08:37)
[2020-08-27] MEDS: Nystatin TOP POWDER 15 GM BTL TOPICAL SCH ×2 (08:37→13:03)
[2020-08-27 12:10] VITALS: BP 141/85
== END 2020-08-27 13:30 | DRG 872 ==
LOC: ED 13:06 → MEDTELE 21:32
PROVIDERS: ADMIT Student in an Organized Health Care Education/Training Program; ATTEND Internal Medicine

== ENCOUNTER 2020-09-03 18:36 | Inpatient (IN) ==
[2020-09-03] MEDS ORDERED: NS 0.9% 1000 ml BAG 1,000 ML IV ONE (18:57)
[2020-09-03] MEDS ORDERED: Iodixanol (CONTRAST) 320 MG/ML 100 ML SDV IV ONE (19:11)
[2020-09-03 20:47] LABS: ABS Nucleated RBC 0.1 10^3/ul; Hematocrit 23 % (42-52); Hemoglobin 7.8 g/dL (14.0-18.0); Mean Corpuscular HGB Conc 34 g/dL (31-36); Mean Corpuscular Hemoglobin 29 pg (27-31); Mean Corpuscular Volume 86 fL (80-94); Nucleated Red Blood Cells % 1.1; Red Blood Count 2.71 10^6 /uL (4.18-5.48); Red Cell Distribution Width 17 % (10-15); White Blood Count 10.4 10^3/uL (3.5-10.8)
[2020-09-03 21:01] LABS: Albumin 2.2 g/dL (3.2-5.2); Albumin/Globulin Ratio 0.7 (1-3); C Reactive Protein 88.16 mg/L (<8.01); Calcium 7.8 mg/dL (8.6-10.3); EGFR African American 65.3 (>60); EGFR Non-African American 53.9 (>60); Globulin 3.2 g/dL (2-4); Total Bilirubin 5.4 mg/dL (0.2-1.0); Total Protein 5.4 g/dL (6.4-8.9)
[2020-09-03 21:03] LABS: Potassium 3.8 mmol/L (3.5-5.0)
[2020-09-03 21:29] LABS: Polychromasia 2+; Spherocytes 2+
[2020-09-03 21:30] LABS: Platelet Count 64 10^3/uL (150-450)
[2020-09-04 00:27] LABS: Indirect Bilirubin 1.6 mg/dL (0.3-1.0)
[2020-09-04 00:54] LABS: Hepatitis B Surface Antigen Nonreactive (Nonreactive)
[2020-09-04 00:59] LABS: Hepatitis A Ab IgM Negative (Negative); Hepatitis B Core IgM Nonreactive (Nonreactive)
[2020-09-04 01:11] LABS: Hepatitis C Antibody Negative (Negative)
[2020-09-04] MEDS ORDERED: Dextrose 50% Syringe 50 ml 25 GM/50 ML SYRINGE IV PUSH PRN (01:33)
[2020-09-04 08:12] LABS: Activated Partial Thrombo Time 47.6 seconds (26.0-38.0)
[2020-09-04 08:30] LABS: INR 7.36 (0.82-1.09)
[2020-09-04] MEDS: Potassium Chlor 20 meq TAB.ER PO SCH ×2 (08:43→20:38)
[2020-09-04] MEDS: Ondansetron 4 mg VIAL 2 MG/ML 2 ml VIAL IV PRN (12:07)
[2020-09-04 13:21] LABS: Hematocrit 24 % (42-52); Hemoglobin 7.8 g/dL (14.0-18.0); Mean Corpuscular HGB Conc 32 g/dL (31-36); Mean Corpuscular Hemoglobin 28 pg (27-31); Mean Corpuscular Volume 88 fL (80-94); Red Blood Count 2.79 10^6 /uL (4.18-5.48); Red Cell Distribution Width 18 % (10-15); White Blood Count 16.2 10^3/uL (3.5-10.8)
[2020-09-04 13:36] LABS: INR 6.9 (0.82-1.09)
[2020-09-04 13:38] LABS: ALT 17 U/L (7-52); AST 54 U/L (13-39); Albumin 2.3 g/dL (3.2-5.2); Albumin/Globulin Ratio 0.7 (1-3); Alkaline Phosphatase 252 U/L (34-104); Anion Gap 13 mmol/L (2-11); BUN/Creatinine Ratio 27.1 (8-20); Blood Urea Nitrogen 35 mg/dL (6-24); CO2 Carbon Dioxide 21 mmol/L (22-32); Chloride 104 mmol/L (101-111); EGFR Non-African American 57.8 (>60); Globulin 3.2 g/dL (2-4); Glucose 147 mg/dL (70-100); Indirect Bilirubin 1.7 mg/dL (0.3-1.0); Potassium 3.9 mmol/L (3.5-5.0); Sodium 138 mmol/L (135-145); Total Protein 5.5 g/dL (6.4-8.9)
[2020-09-04 13:39] LABS: Mean Platelet Volume 12.7 fL (7.4-10.4); Platelet Count 83 10^3/uL (150-450)
[2020-09-04 13:41] LABS: ABS Neutrophils 13.1 10^3/ul (1.5-7.7); Polychromasia 1+
[2020-09-04 13:42] LABS: ABS Eosinophils 0.2 10^3/ul (0-0.6)
[2020-09-04 14:07] LABS: Total Iron Binding Capacity 105 mcg/dL (250-450); Transferrin < 75 mg/dL (203-362)
[2020-09-04 14:24] LABS: % Iron Saturation 85 % (15-55); Iron 89 ug/dL (50-212); Unsaturated Iron Binding < 90 ug/dL
[2020-09-04 14:33] LABS: Vitamin B12 > 1450 pg/mL (180-914)
[2020-09-04 17:09] LABS: Urine Appearance Cloudy; Urine Bilirubin 1+ (Negative); Urine Blood 1+ (Negative); Urine Color Amber; Urine Glucose Negative (Negative); Urine Ketones Negative (Negative); Urine Nitrite Positive (Negative); Urine Protein 1+(30 mg/dL) (Negative); Urine Specific Gravity 1.047 (1.010-1.030); Urine Urobilinogen Negative (Negative)
[2020-09-04 17:16] LABS: Urine Bacteria 1+ (Absent); Urine Red Blood Cell 2+(6-10/hpf) (Absent); Urine White Blood Cell 3+(>20/hpf) (Absent)
[2020-09-04] MEDS ORDERED: NS 0.9% 1000 ml BAG 1,000 ML IV ONE (20:13)
[2020-09-04] MEDS ORDERED: Phytonadione Oral Solution 5 MG/25 ML UDC PO ONE (20:23)
[2020-09-04] MEDS: cefTRIAXone 1 gm/50 mL NS BAG 1 GM/50 ML BAG IVPB SCH (20:37)
[2020-09-04] MEDS: CMCS:Minocycline 50 mg CAP (NF) PO SCH (20:37)
[2020-09-04] MEDS: Latanoprost 0.005% 2.5 ml BTL RIGHT EYE SCH (20:37)
[2020-09-04] MEDS ORDERED: Insulin GLARGINE 100 un/ml 10 ml VIAL SUBCUT SCH ×3 (21:00)
[2020-09-05] MEDS: Analgesic BALM 114 GM TOPICAL SCH ×4 (03:13→21:22)
[2020-09-05] MEDS: Lidocaine PATCH 5% PATCH TRANSDERM SCH ×2 (03:13→10:45)
[2020-09-05] MEDS ORDERED: NS 0.9% 500 ml BAG 500 ML IV ONE (03:38)
[2020-09-05] MEDS: NS 0.9% 1000 ml BAG 1,000 ML IV SCH (03:55)
[2020-09-05 04:16] LABS: Urine Appearance Cloudy; Urine Bilirubin Negative (Negative); Urine Blood 1+ (Negative); Urine Color Amber; Urine Glucose Negative (Negative); Urine Ketones Negative (Negative); Urine Nitrite Positive (Negative); Urine Protein 1+(30 mg/dL) (Negative); Urine Specific Gravity 1.038 (1.010-1.030); Urine Urobilinogen Negative (Negative)
[2020-09-05 04:19] LABS: Urine Bacteria 1+ (Absent); Urine Red Blood Cell Trace(0-2/hpf) (Absent); Urine White Blood Cell Trace(0-5/hpf) (Absent)
[2020-09-05 06:39] LABS: Albumin 1.9 g/dL (3.2-5.2); Albumin/Globulin Ratio 0.7 (1-3); BUN/Creatinine Ratio 25.6 (8-20); Calcium 7.3 mg/dL (8.6-10.3); EGFR African American 72.6 (>60); Globulin 2.7 g/dL (2-4); Indirect Bilirubin 1.5 mg/dL (0.3-1.0); Potassium 4.3 mmol/L (3.5-5.0); Total Bilirubin 5.2 mg/dL (0.2-1.0); Total Protein 4.6 g/dL (6.4-8.9)
[2020-09-05 06:43] LABS: Hematocrit 18 % (42-52); Hemoglobin 6.1 g/dL (14.0-18.0); Mean Corpuscular HGB Conc 34 g/dL (31-36); Mean Corpuscular Hemoglobin 29 pg (27-31); Mean Corpuscular Volume 85 fL (80-94); Mean Platelet Volume 11.6 fL (7.4-10.4); Platelet Count 50 10^3/uL (150-450); Red Cell Distribution Width 17 % (10-15); White Blood Count 8.4 10^3/uL (3.5-10.8)
[2020-09-05 09:12] LABS: Polychromasia 1+
[2020-09-05 09:13] LABS: ABS Neutrophils 6.6 10^3/ul (1.5-7.7)
[2020-09-05] MEDS: Potassium Chlor 20 meq TAB.ER PO SCH ×2 (10:43→22:07)
[2020-09-05 19:05] LABS: Hematocrit 30 % (42-52); Hemoglobin 9.8 g/dL (14.0-18.0)
[2020-09-05] MEDS: cefTRIAXone 1 gm/50 mL NS BAG 1 GM/50 ML BAG IVPB SCH (19:57)
[2020-09-05] MEDS: CMCS:Minocycline 50 mg CAP (NF) PO SCH (22:06)
[2020-09-05] MEDS: Latanoprost 0.005% 2.5 ml BTL RIGHT EYE SCH (22:16)
[2020-09-05] MEDS: Lidocaine Patch REMOVE PATCH PATCH OFF SCH (22:16)
[2020-09-06] MEDS: NS 0.9% 1000 ml BAG 1,000 ML IV SCH (01:29)
[2020-09-06] MEDS: Lidocaine PATCH 5% PATCH TRANSDERM SCH (08:33)
[2020-09-06] MEDS: Potassium Chlor 20 meq TAB.ER PO SCH ×2 (08:34→20:34)
[2020-09-06] MEDS: Analgesic BALM 114 GM TOPICAL SCH ×3 (08:34→20:47)
[2020-09-06 09:37] LABS: ABS Eosinophils 0.1 10^3/ul (0-0.6); ABS Lymphocytes 1.3 10^3/ul (1.0-4.8); ABS Monocytes 0.5 10^3/ul (0-0.8); ABS Neutrophils 9.1 10^3/ul (1.5-7.7); ABS Nucleated RBC 0.2 10^3/ul; Eosinophil % 0.9 %; Hematocrit 26 % (42-52); Hemoglobin 8.6 g/dL (14.0-18.0); Lymphocyte % 12.1 %; Mean Corpuscular HGB Conc 33 g/dL (31-36); Mean Corpuscular Hemoglobin 29 pg (27-31); Mean Corpuscular Volume 88 fL (80-94); Nucleated Red Blood Cells % 1.3; Platelet Count 74 10^3/uL (150-450); Red Blood Count 2.94 10^6 /uL (4.18-5.48); Red Cell Distribution Width 17 % (10-15); White Blood Count 11.1 10^3/uL (3.5-10.8)
[2020-09-06 09:38] LABS: INR 1.55 (0.82-1.09)
[2020-09-06 09:55] LABS: Albumin 2.1 g/dL (3.2-5.2); Albumin/Globulin Ratio 0.7 (1-3); BUN/Creatinine Ratio 25.2 (8-20); Calcium 7.5 mg/dL (8.6-10.3); EGFR African American 79.9 (>60); Globulin 3.1 g/dL (2-4); Potassium 4.2 mmol/L (3.5-5.0); Total Bilirubin 6.8 mg/dL (0.2-1.0); Total Protein 5.2 g/dL (6.4-8.9)
[2020-09-06] MEDS: cefTRIAXone 1 gm/50 mL NS BAG 1 GM/50 ML BAG IVPB SCH (20:31)
[2020-09-06] MEDS: Latanoprost 0.005% 2.5 ml BTL RIGHT EYE SCH (20:33)
[2020-09-06] MEDS: Lidocaine Patch REMOVE PATCH PATCH OFF SCH (20:47)
[2020-09-06] MEDS: CMCS:Minocycline 50 mg CAP (NF) PO SCH (20:50)
[2020-09-07] MEDS: NS 0.9% 1000 ml BAG 1,000 ML IV SCH ×2 (02:51→15:48)
[2020-09-07] MEDS: Potassium Chlor 20 meq TAB.ER PO SCH ×2 (08:35→22:26)
[2020-09-07] MEDS: Lidocaine PATCH 5% PATCH TRANSDERM SCH (08:35)
[2020-09-07] MEDS: Analgesic BALM 114 GM TOPICAL SCH ×3 (08:35→22:31)
[2020-09-07] MEDS ORDERED: Buffered Lidocaine 1% SYRIN 1 ml INTRADERM ONE ×2 (09:41→13:34)
[2020-09-07] MEDS: Ondansetron 4 mg VIAL 2 MG/ML 2 ml VIAL IV PRN (11:55)
[2020-09-07 14:08] LABS: Ceruloplasmin 27.9 mg/dL
[2020-09-07 14:45] LABS: ABS Basophils 0.2 10^3/ul (0-0.2); ABS Lymphocytes 3.1 10^3/ul (1.0-4.8); ABS Monocytes 0.5 10^3/ul (0-0.8); ABS Neutrophils 10.6 10^3/ul (1.5-7.7); ABS Nucleated RBC 0.1 10^3/ul; Eosinophil % 0.3 %; Hematocrit 27 % (42-52); Hemoglobin 8.6 g/dL (14.0-18.0); Lymphocyte % 21.4 %; Mean Corpuscular HGB Conc 32 g/dL (31-36); Mean Corpuscular Hemoglobin 29 pg (27-31); Mean Corpuscular Volume 91 fL (80-94); Mean Platelet Volume 11.4 fL (7.4-10.4); Nucleated Red Blood Cells % 0.9; Platelet Count 130 10^3/uL (150-450); Red Blood Count 2.93 10^6 /uL (4.18-5.48); Red Cell Distribution Width 19 % (10-15); White Blood Count 14.4 10^3/uL (3.5-10.8)
[2020-09-07 14:46] LABS: INR 1.83 (0.82-1.09)
[2020-09-07 15:03] LABS: Albumin 2.2 g/dL (3.2-5.2); Albumin/Globulin Ratio 0.8 (1-3); BUN/Creatinine Ratio 24.3 (8-20); Calcium 7.2 mg/dL (8.6-10.3); EGFR African American 79.9 (>60); Globulin 2.9 g/dL (2-4); Indirect Bilirubin 2.4 mg/dL (0.3-1.0); Potassium 4.6 mmol/L (3.5-5.0); Total Bilirubin 8.3 mg/dL (0.2-1.0); Total Protein 5.1 g/dL (6.4-8.9)
[2020-09-07 15:24] LABS: Cytomegalovirus IgG Antibody Negative (Negative); EBV Capsid Ag IgG Ab Positive (Negative); EBV Capsid Ag IgM Ab Negative (Negative); Epstein-Barr Nuclear Antigen Positive (Negative)
[2020-09-07] MEDS: CMCS:Minocycline 50 mg CAP (NF) PO SCH (22:26)
[2020-09-07] MEDS: Latanoprost 0.005% 2.5 ml BTL RIGHT EYE SCH (22:26)
[2020-09-07] MEDS: Lidocaine Patch REMOVE PATCH PATCH OFF SCH (22:37)
[2020-09-08 04:07] LABS: Hematocrit 26 % (42-52); Hemoglobin 8.3 g/dL (14.0-18.0); Mean Corpuscular HGB Conc 32 g/dL (31-36); Mean Corpuscular Hemoglobin 29 pg (27-31); Mean Corpuscular Volume 90 fL (80-94); Mean Platelet Volume 11.1 fL (7.4-10.4); Platelet Count 142 10^3/uL (150-450); Red Blood Count 2.83 10^6 /uL (4.18-5.48); Red Cell Distribution Width 18 % (10-15); White Blood Count 14.5 10^3/uL (3.5-10.8)
[2020-09-08 04:17] LABS: INR 1.91 (0.82-1.09)
[2020-09-08 04:23] LABS: BUN/Creatinine Ratio 24.8 (8-20); Blood Urea Nitrogen 30 mg/dL (6-24); CO2 Carbon Dioxide 19 mmol/L (22-32); Calcium 7.3 mg/dL (8.6-10.3); Chloride 109 mmol/L (101-111); EGFR African American 75.3 (>60); EGFR Non-African American 62.3 (>60); Glucose 79 mg/dL (70-100); Sodium 137 mmol/L (135-145)
[2020-09-08 04:37] LABS: Anion Gap 9 mmol/L (2-11); Potassium 4.6 mmol/L (3.5-5.0)
[2020-09-08] MEDS: Analgesic BALM 114 GM TOPICAL SCH ×3 (08:05→21:48)
[2020-09-08] MEDS: Lidocaine PATCH 5% PATCH TRANSDERM SCH (08:23)
[2020-09-08 09:05] LABS: ALT 21 U/L (7-52); Albumin 2.1 g/dL (3.2-5.2); Albumin/Globulin Ratio 0.7 (1-3); Alkaline Phosphatase 294 U/L (34-104); Globulin 2.9 g/dL (2-4)
[2020-09-08] MEDS: Potassium Chlor 20 meq TAB.ER PO SCH ×2 (09:40→21:49)
[2020-09-08 12:10] LABS: C Reactive Protein 46.51 mg/L (<8.01)
[2020-09-08] MEDS ORDERED: fentaNYL 100 mcg/2 ml 50 MCG/ML VIAL ONE (15:25)
[2020-09-08] MEDS ORDERED: HYDROmorphone 0.5 MG/0.5 ML SYRINGE ONE (15:46)
[2020-09-08 15:49] LABS: CMV DNA DETECT/QT, P Undetected IU/mL (Undetected)
[2020-09-08] MEDS ORDERED: Phytonadione Oral Solution 5 MG/25 ML UDC PO ONE (16:28)
[2020-09-08 17:48] LABS: Body Fluid Source Peritonial Fluid
[2020-09-08 19:00] LABS: Body Fluid Band 1 %; Body Fluid Mono 60 %; Body Fluid Other Cells 181
[2020-09-08 19:49] LABS: Kappa Free Light Chain 13.5 mg/dL; Lambda Free Light Chain 5.92 mg/dL
[2020-09-08 20:39] LABS: Liver/Kidney Microsomes Ab <5.0 U
[2020-09-08] MEDS: Lidocaine Patch REMOVE PATCH PATCH OFF SCH (21:49)
[2020-09-08] MEDS: Latanoprost 0.005% 2.5 ml BTL RIGHT EYE SCH (21:49)
[2020-09-08] MEDS: Ondansetron 4 mg VIAL 2 MG/ML 2 ml VIAL IV PRN (21:57)
[2020-09-08] MEDS ORDERED: Phytonadione IV (Adult) 5 MG in NS 0.9% 50 ML 50 ML IV ONE (22:00)
[2020-09-08] MEDS: HYDROmorphone 0.5 MG/0.5 ML SYRINGE IV PRN (23:57)
[2020-09-09] MEDS: HYDROmorphone 0.5 MG/0.5 ML SYRINGE IV PRN (06:21)
[2020-09-09 06:44] LABS: Corrected Retic Count 2.9 % (0.5-1.5); Hematocrit 23 % (42-52); Hematocrit for Retic CNT 23 % (42-52); Hemoglobin 7.5 g/dL (14.0-18.0); Immature Retic Fraction 0.49; Mean Corpuscular HGB Conc 32 g/dL (31-36); Mean Corpuscular Hemoglobin 29 pg (27-31); Mean Corpuscular Volume 90 fL (80-94); Mean Platelet Volume 11.1 fL (7.4-10.4); Platelet Count 181 10^3/uL (150-450); RBC Retic Count 2.59 10^6/uL (4.18-5.48); Red Blood Count 2.59 10^6 /uL (4.18-5.48); Red Cell Distribution Width 19 % (10-15); White Blood Count 13.8 10^3/uL (3.5-10.8)
[2020-09-09 07:03] LABS: Activated Partial Thrombo Time 33.2 seconds (26.0-38.0); Fibrinogen 244.6 mg/dL (110.8-404.3); INR 1.88 (0.82-1.09)
[2020-09-09] MEDS: Potassium Chlor 20 meq TAB.ER PO SCH ×3 (07:42→20:02)
[2020-09-09] MEDS: Lidocaine PATCH 5% PATCH TRANSDERM SCH (07:42)
[2020-09-09] MEDS: Analgesic BALM 114 GM TOPICAL SCH ×3 (07:42→20:02)
[2020-09-09 10:52] LABS: Corrected Retic Count 2.8 % (0.5-1.5); Hematocrit 22 % (42-52); Hematocrit for Retic CNT 22 % (42-52); Hemoglobin 7.2 g/dL (14.0-18.0); Immature Retic Fraction 0.46; Mean Corpuscular HGB Conc 32 g/dL (31-36); Mean Corpuscular Hemoglobin 29 pg (27-31); Mean Corpuscular Volume 90 fL (80-94); Mean Platelet Volume 10.9 fL (7.4-10.4); Platelet Count 167 10^3/uL (150-450); RBC Retic Count 2.48 10^6/uL (4.18-5.48); Red Blood Count 2.48 10^6 /uL (4.18-5.48); Red Cell Distribution Width 19 % (10-15); White Blood Count 13.8 10^3/uL (3.5-10.8)
[2020-09-09 10:59] LABS: Activated Partial Thrombo Time 32.8 seconds (26.0-38.0); Fibrinogen 230.7 mg/dL (110.8-404.3); INR 1.67 (0.82-1.09)
[2020-09-09 11:10] LABS: Albumin/Globulin Ratio 0.7 (1-3); BUN/Creatinine Ratio 24.5 (8-20); Calcium 7.5 mg/dL (8.6-10.3); EGFR African American 64.2 (>60); EGFR Non-African American 53.1 (>60); Globulin 2.8 g/dL (2-4); Potassium 4.7 mmol/L (3.5-5.0); Total Bilirubin 8.7 mg/dL (0.2-1.0); Total Protein 4.8 g/dL (6.4-8.9)
[2020-09-09 12:10] LABS: Urine Creatinine Concentration 112.46 mg/dL
[2020-09-09 13:04] LABS: Albumin/Globulin Ratio 0.56; Gamma Globulin 1.5 g/dL (0.6-1.6); Total Protein(PEP) 5.5 g/dL (6.3 - 7.9)
[2020-09-09] MEDS ORDERED: Midazolam 10 mg/10 ml VIAL 1 mg/ml 10 ml VIAL (10 mg) ONE (14:36)
[2020-09-09] MEDS ORDERED: Meperidine 50 mg/ml SYRINGE 1 ml ONE (14:36)
[2020-09-09] MEDS: Lidocaine Patch REMOVE PATCH PATCH OFF SCH (19:55)
[2020-09-09] MEDS: Latanoprost 0.005% 2.5 ml BTL RIGHT EYE SCH (20:02)
[2020-09-10 07:13] LABS: Hematocrit 22 % (42-52); Hemoglobin 7.1 g/dL (14.0-18.0); Mean Corpuscular HGB Conc 32 g/dL (31-36); Mean Corpuscular Hemoglobin 29 pg (27-31); Mean Corpuscular Volume 90 fL (80-94); Mean Platelet Volume 11.2 fL (7.4-10.4); Platelet Count 152 10^3/uL (150-450); Red Blood Count 2.45 10^6 /uL (4.18-5.48); Red Cell Distribution Width 19 % (10-15); White Blood Count 11.3 10^3/uL (3.5-10.8)
[2020-09-10 07:27] LABS: ALT 24 U/L (7-52); Albumin/Globulin Ratio 0.7 (1-3); Alkaline Phosphatase 171 U/L (34-104); Blood Urea Nitrogen 35 mg/dL (6-24); CO2 Carbon Dioxide 19 mmol/L (22-32); Calcium 7.5 mg/dL (8.6-10.3); Chloride 111 mmol/L (101-111); EGFR African American 60.7 (>60); EGFR Non-African American 50.1 (>60); Globulin 2.8 g/dL (2-4); Glucose 133 mg/dL (70-100); Sodium 138 mmol/L (135-145); Total Protein 4.8 g/dL (6.4-8.9)
[2020-09-10 08:23] LABS: Anion Gap 8 mmol/L (2-11)
[2020-09-10] MEDS: Potassium Chlor 20 meq TAB.ER PO SCH ×2 (08:47→20:08)
[2020-09-10] MEDS: Lidocaine PATCH 5% PATCH TRANSDERM SCH (08:48)
[2020-09-10] MEDS: Analgesic BALM 114 GM TOPICAL SCH ×3 (08:48→20:07)
[2020-09-10] MEDS ORDERED: Lactated Ringers 1000 ml BAG 1,000 ML IV SCH (09:00)
[2020-09-10] MEDS ORDERED: Vancomycin 1,500 MG in NS 0.9% 250 ml 250 ML IVPB ONE (11:00)
[2020-09-10 11:07] LABS: Fluid Type, Protein, Total PERITONEAL
[2020-09-10 12:04] LABS: Albumin, BF 0.3 g/dL; Fluid Type, Albumin PERITONEAL
[2020-09-10] MEDS ORDERED: Vancomycin per Pharmacy 1 EA NOTE FOLLOW UP PRN (12:17)
[2020-09-10 16:50] LABS: Urine Creatinine Concentration 112.57 mg/dL; Urine Sodium Concentration < 18 mmol/L
[2020-09-10] MEDS: Lidocaine Patch REMOVE PATCH PATCH OFF SCH (20:07)
[2020-09-10] MEDS: Latanoprost 0.005% 2.5 ml BTL RIGHT EYE SCH (20:08)
[2020-09-10] MEDS ORDERED: NS 0.9% 1000 ml BAG 1,000 ML IV SCH ×2 (22:00→22:05)
[2020-09-11] MEDS: Analgesic BALM 114 GM TOPICAL SCH ×4 (00:14→20:52)
[2020-09-11] MEDS: Vancomycin 1,250 MG in NS 0.9% 250 ml 250 ML IVPB SCH ×3 (00:15→23:29)
[2020-09-11 06:01] LABS: Hematocrit 21 % (42-52); Mean Corpuscular HGB Conc 34 g/dL (31-36); Mean Corpuscular Hemoglobin 30 pg (27-31); Mean Corpuscular Volume 89 fL (80-94); Mean Platelet Volume 10.9 fL (7.4-10.4); Platelet Count 114 10^3/uL (150-450); Red Blood Count 2.35 10^6 /uL (4.18-5.48); Red Cell Distribution Width 20 % (10-15); White Blood Count 11.1 10^3/uL (3.5-10.8)
[2020-09-11 06:08] LABS: INR 1.47 (0.82-1.09)
[2020-09-11 06:18] LABS: ALT 23 U/L (7-52); Albumin/Globulin Ratio 0.7 (1-3); Alkaline Phosphatase 171 U/L (34-104); BUN/Creatinine Ratio 22.5 (8-20); Blood Urea Nitrogen 36 mg/dL (6-24); CO2 Carbon Dioxide 18 mmol/L (22-32); Calcium 7.6 mg/dL (8.6-10.3); Chloride 111 mmol/L (101-111); EGFR African American 54.6 (>60); EGFR Non-African American 45.1 (>60); Globulin 2.7 g/dL (2-4); Glucose 104 mg/dL (70-100); Sodium 137 mmol/L (135-145); Total Protein 4.7 g/dL (6.4-8.9)
[2020-09-11 07:29] LABS: Anion Gap 8 mmol/L (2-11)
[2020-09-11] MEDS: Potassium Chlor 20 meq TAB.ER PO SCH ×2 (08:54→20:49)
[2020-09-11] MEDS: Lidocaine PATCH 5% PATCH TRANSDERM SCH (08:55)
[2020-09-11 11:29] LABS: Immature Retic Fraction 0.44; RBC Retic Count 2.08 10^6/uL (4.18-5.48)
[2020-09-11 11:41] LABS: Corrected Retic Count 1.6 % (0.5-1.5); Hematocrit for Retic CNT 21 % (42-52)
[2020-09-11] MEDS ORDERED: D5W 1/2 NS 1000 ml BAG 1,000 ML IV SCH (16:00)
[2020-09-11 16:19] LABS: Hematocrit 21 % (42-52); Hemoglobin 7.1 g/dL (14.0-18.0)
[2020-09-11 17:18] LABS: Potassium Redraw 5.3 mmol/L (3.5-5.0)
[2020-09-11] MEDS ORDERED: HYDROmorphone 0.5 MG/0.5 ML SYRINGE IV SLOW PU ONE ×2 (17:56→22:07)
[2020-09-11] MEDS: Latanoprost 0.005% 2.5 ml BTL RIGHT EYE SCH (20:49)
[2020-09-11] MEDS: Lidocaine Patch REMOVE PATCH PATCH OFF SCH (20:51)
[2020-09-12 05:07] LABS: Hematocrit 22 % (42-52); Hemoglobin 7.1 g/dL (14.0-18.0); Mean Corpuscular HGB Conc 32 g/dL (31-36); Mean Corpuscular Hemoglobin 29 pg (27-31); Mean Corpuscular Volume 91 fL (80-94); Platelet Count 122 10^3/uL (150-450); Red Blood Count 2.43 10^6 /uL (4.18-5.48); Red Cell Distribution Width 20 % (10-15); White Blood Count 11.5 10^3/uL (3.5-10.8)
[2020-09-12 05:20] LABS: Albumin/Globulin Ratio 0.7 (1-3); BUN/Creatinine Ratio 21.2 (8-20); Calcium 7.4 mg/dL (8.6-10.3); EGFR African American 50.9 (>60); EGFR Non-African American 42.1 (>60); Globulin 2.9 g/dL (2-4); Magnesium 1.5 mg/dL (1.9-2.7); Total Protein 4.9 g/dL (6.4-8.9)
[2020-09-12 05:21] LABS: Potassium 5.3 mmol/L (3.5-5.0)
[2020-09-12 05:43] LABS: ABS Basophils 0.1 10^3/ul (0-0.2); ABS Lymphocytes 0.8 10^3/ul (1.0-4.8); ABS Monocytes 0.6 10^3/ul (0-0.8); ABS Neutrophils 10.1 10^3/ul (1.5-7.7); ABS Nucleated RBC 0.1 10^3/ul; Lymphocyte % 7.1 %; Nucleated Red Blood Cells % 0.4
[2020-09-12] MEDS: Potassium Chlor 20 meq TAB.ER PO SCH (08:50)
[2020-09-12] MEDS: Analgesic BALM 114 GM TOPICAL SCH ×3 (08:54→21:18)
[2020-09-12] MEDS: Lidocaine PATCH 5% PATCH TRANSDERM SCH (08:54)
[2020-09-12] MEDS: Vancomycin 1,250 MG in NS 0.9% 250 ml 250 ML IVPB SCH (12:36)
[2020-09-12] MEDS ORDERED: D5W 1/2 NS 1000 ml BAG 1,000 ML IV SCH (15:15)
[2020-09-12] MEDS: Lidocaine Patch REMOVE PATCH PATCH OFF SCH (21:18)
[2020-09-12] MEDS: Latanoprost 0.005% 2.5 ml BTL RIGHT EYE SCH (21:18)
[2020-09-13] MEDS: Vancomycin 1,250 MG in NS 0.9% 250 ml 250 ML IVPB SCH ×2 (00:40→12:10)
[2020-09-13] MEDS ORDERED: NS 0.9% 1000 ml BAG 1,000 ML IV ONE (05:47)
[2020-09-13] MEDS: Lidocaine PATCH 5% PATCH TRANSDERM SCH (09:28)
[2020-09-13] MEDS: Analgesic BALM 114 GM TOPICAL SCH ×3 (09:28→21:07)
[2020-09-13] MEDS ORDERED: Lactated Ringers 1000 ml BAG 1,000 ML IV ONE ×4 (09:36→10:46)
[2020-09-13] MEDS ORDERED: Alteplase (CATHFLO) 2 MG VIAL IV ONE (10:03)
[2020-09-13] MEDS: Meropenem 1 GM PREMIX(*) 1 GM/50 ML BAG IV SCH ×2 (10:14→20:42)
[2020-09-13 11:17] LABS: INR 1.61 (0.82-1.09)
[2020-09-13 11:20] LABS: Albumin 1.7 g/dL (3.2-5.2); Calcium 6.7 mg/dL (8.6-10.3); Magnesium 1.5 mg/dL (1.9-2.7); Sodium 134 mmol/L (135-145)
[2020-09-13 11:23] LABS: EGFR African American 41.9 (>60); EGFR Non-African American 34.7 (>60)
[2020-09-13 11:27] LABS: ALT 23 U/L (7-52); Albumin/Globulin Ratio 0.7 (1-3); Alkaline Phosphatase 156 U/L (34-104); BUN/Creatinine Ratio 19.2 (8-20); Blood Urea Nitrogen 39 mg/dL (6-24); EGFR African American 41.5 (>60); EGFR Non-African American 34.3 (>60); Globulin 2.6 g/dL (2-4); Glucose 134 mg/dL (70-100); Total Protein 4.3 g/dL (6.4-8.9)
[2020-09-13] MEDS ORDERED: Vancomycin Trough Check NOTE FOLLOW UP ONE (11:30)
[2020-09-13] MEDS: Ondansetron 4 mg VIAL 2 MG/ML 2 ml VIAL IV PRN (11:42)
[2020-09-13 11:50] LABS: Lipase 2559 U/L (11.0-82.0)
[2020-09-13 11:53] LABS: CO2 Carbon Dioxide 11 mmol/L (22-32)
[2020-09-13 12:09] LABS: Vancomycin Trough 45.2 mcg/mL
[2020-09-13 13:19] LABS: Urine Kappa Total Light Chain 20.3 mg/dL (<0.9000); Urine Kappa/Lambda Light Chain 4.07
[2020-09-13 13:49] LABS: Anion Gap 7 mmol/L (2-11); Chloride 116 mmol/L (101-111)
[2020-09-13 14:07] LABS: ABS Lymphocytes 0.4 10^3/ul (1.0-4.8); ABS Monocytes 2.3 10^3/ul (0-0.8); ABS Neutrophils 17.7 10^3/ul (1.5-7.7); ABS Nucleated RBC 0.4 10^3/ul; Eosinophil % 0.1 %; Hematocrit 23 % (42-52); Hemoglobin 6.8 g/dL (14.0-18.0); Lymphocyte % 2.2 %; Mean Corpuscular HGB Conc 30 g/dL (31-36); Mean Corpuscular Hemoglobin 29 pg (27-31); Mean Corpuscular Volume 98 fL (80-94); Mean Platelet Volume 11.1 fL (7.4-10.4); Nucleated Red Blood Cells % 1.9; Platelet Count 84 10^3/uL (150-450); Red Blood Count 2.34 10^6 /uL (4.18-5.48); Red Cell Distribution Width 22 % (10-15); White Blood Count 20.4 10^3/uL (3.5-10.8)
[2020-09-13 16:09] LABS: BUN/Creatinine Ratio 19.3 (8-20); Calcium 6.6 mg/dL (8.6-10.3); EGFR African American 41.7 (>60); EGFR Non-African American 34.5 (>60)
[2020-09-13 16:13] LABS: Potassium 5.2 mmol/L (3.5-5.0)
[2020-09-13] MEDS ORDERED: Norepinephrine 16MCG/ML IVPRE 4,000 MCG/250 ML BAG IV ONE (17:02)
[2020-09-13] MEDS: Norepinephrine 16MCG/ML IVPRE 4,000 MCG/250 ML BAG IV SCH ×2 (17:30→18:49)
[2020-09-13] MEDS ORDERED: Hydrocortisone INJ 100 MG/2ML 2 ML VIAL IV ONE (17:57)
[2020-09-13] MEDS: Lidocaine Patch REMOVE PATCH PATCH OFF SCH (20:05)
[2020-09-13] MEDS: Latanoprost 0.005% 2.5 ml BTL RIGHT EYE SCH (20:50)
[2020-09-14] MEDS: Norepinephrine 16MCG/ML IVPRE 4,000 MCG/250 ML BAG IV SCH ×4 (01:10→20:58)
[2020-09-14] MEDS: Meropenem 1 GM PREMIX(*) 1 GM/50 ML BAG IV SCH ×3 (01:43→20:55)
[2020-09-14] MEDS ORDERED: NORMOSOL-R pH 7.4 1000 mL BAG 1,000 ML IV SCH (02:00)
[2020-09-14] MEDS: Saline FLUSH-CENTRAL 10 ML SYRINGE CENT\\PICC SCH ×3 (03:30→20:55)
[2020-09-14] MEDS: Hydrocortisone INJ 100 MG/2ML 2 ML VIAL IV SCH ×3 (04:32→20:54)
[2020-09-14 05:55] LABS: Hematocrit 25 % (42-52); Hemoglobin 7.9 g/dL (14.0-18.0); Mean Corpuscular HGB Conc 32 g/dL (31-36); Mean Corpuscular Hemoglobin 29 pg (27-31); Mean Corpuscular Volume 89 fL (80-94); Mean Platelet Volume 11.9 fL (7.4-10.4); Platelet Count 169 10^3/uL (150-450); Red Blood Count 2.77 10^6 /uL (4.18-5.48); Red Cell Distribution Width 21 % (10-15); White Blood Count 35.4 10^3/uL (3.5-10.8)
[2020-09-14] MEDS ORDERED: Vancomycin Random Level NOTE FOLLOW UP ONE (06:00)
[2020-09-14 06:21] LABS: BUN/Creatinine Ratio 17.2 (8-20); EGFR African American 36.4 (>60); EGFR Non-African American 30.1 (>60)
[2020-09-14 06:29] LABS: Potassium 5.4 mmol/L (3.5-5.0)
[2020-09-14 06:30] LABS: Calcium 6.1 mg/dL (8.6-10.3)
[2020-09-14] MEDS ORDERED: Magnesium Sulfate 2 gm BAG 2 GM/50 ML BAG IVPB ONE (07:43)
[2020-09-14] MEDS ORDERED: Dextrose 50% Syringe 50 ml 25 GM/50 ML SYRINGE IV PUSH ONE ×2 (07:46→17:07)
[2020-09-14] MEDS ORDERED: Sodium Bicarb 8.4% Vial 50 ML 50 MEQ in D5W 1000 ml BAG 1,000 ML IV SCH (08:00)
[2020-09-14 08:10] LABS: Magnesium 1.4 mg/dL (1.9-2.7); Phosphorus 3.5 mg/dL (2.5-5.0)
[2020-09-14] MEDS: Lidocaine PATCH 5% PATCH TRANSDERM SCH (09:06)
[2020-09-14] MEDS: Analgesic BALM 114 GM TOPICAL SCH ×3 (09:06→20:55)
[2020-09-14 09:24] LABS: Albumin 18 %; Albumin/Globulin Ratio 0.22 %; Gamma Globulin 33 %; Total Protein(PEP) Urine 78 mg/dL
[2020-09-14 12:36] LABS: BUN/Creatinine Ratio 17.1 (8-20); EGFR African American 35.2 (>60); EGFR Non-African American 29.1 (>60); Magnesium 1.9 mg/dL (1.9-2.7)
[2020-09-14 12:39] LABS: Potassium 5.3 mmol/L (3.5-5.0)
[2020-09-14 12:40] LABS: Calcium 5.8 mg/dL (8.6-10.3)
[2020-09-14 14:50] LABS: Pancreatic Elastase Feces 270 mcg/g
[2020-09-14] MEDS: Ondansetron 4 mg VIAL 2 MG/ML 2 ml VIAL IV PRN ×2 (15:27→21:08)
[2020-09-14 16:29] LABS: Case Number CR-21-7259
[2020-09-14 16:58] LABS: BUN/Creatinine Ratio 17.4 (8-20); EGFR Non-African American 28.1 (>60)
[2020-09-14 17:05] LABS: Calcium 5.8 mg/dL (8.6-10.3); Potassium 5.2 mmol/L (3.5-5.0)
[2020-09-14] MEDS: Lidocaine Patch REMOVE PATCH PATCH OFF SCH (20:55)
[2020-09-14] MEDS: Latanoprost 0.005% 2.5 ml BTL RIGHT EYE SCH (20:56)
[2020-09-14 21:59] LABS: BUN/Creatinine Ratio 16.5 (8-20); EGFR Non-African American 25.6 (>60)
[2020-09-14 22:01] LABS: Calcium 5.4 mg/dL (8.6-10.3)
[2020-09-14] MEDS ORDERED: Sodium Bicarbonate 8.4% SYR 50 ml SYRINGE IV ONE (22:01)
[2020-09-14] MEDS ORDERED: Sodium Bicarbonate 8.4% VIAL 1 MEQ/ML 50 ml VIAL (50 meq) ONE (22:03)
[2020-09-14] MEDS ORDERED: Calcium Gluconate 1 GM in NS 0.9% 50 ML 50 ML IV ONE (22:04)
[2020-09-14] MEDS: Sodium Bicarb 8.4% Vial 50 ML 50 MEQ in D5W 1000 ml BAG 1,000 ML IV SCH (23:30)
[2020-09-15 03:33] LABS: INR 1.89 (0.82-1.09)
[2020-09-15 03:39] LABS: Hematocrit 23 % (42-52); Hemoglobin 7.4 g/dL (14.0-18.0); Mean Corpuscular HGB Conc 32 g/dL (31-36); Mean Corpuscular Hemoglobin 29 pg (27-31); Mean Corpuscular Volume 90 fL (80-94); Mean Platelet Volume 11.4 fL (7.4-10.4); Platelet Count 87 10^3/uL (150-450); Red Blood Count 2.57 10^6 /uL (4.18-5.48); Red Cell Distribution Width 21 % (10-15); White Blood Count 22.4 10^3/uL (3.5-10.8)
[2020-09-15 03:44] LABS: Albumin 1.8 g/dL (3.2-5.2); Albumin/Globulin Ratio 0.7 (1-3); BUN/Creatinine Ratio 16.5 (8-20); EGFR African American 30.2 (>60); Globulin 2.5 g/dL (2-4); Indirect Bilirubin 4.1 mg/dL (0.3-1.0); Total Bilirubin 11.5 mg/dL (0.2-1.0); Total Protein 4.3 g/dL (6.4-8.9)
[2020-09-15 03:48] LABS: Potassium 5.1 mmol/L (3.5-5.0)
[2020-09-15 03:49] LABS: Calcium 5.5 mg/dL (8.6-10.3)
[2020-09-15] MEDS: Hydrocortisone INJ 100 MG/2ML 2 ML VIAL IV SCH ×3 (04:09→20:54)
[2020-09-15] MEDS: Norepinephrine 16MCG/ML IVPRE 4,000 MCG/250 ML BAG IV SCH ×3 (04:10→12:58)
[2020-09-15 04:15] LABS: Magnesium 1.7 mg/dL (1.9-2.7); Phosphorus 3.4 mg/dL (2.5-5.0)
[2020-09-15] MEDS ORDERED: Magnesium Sulfate 2 gm BAG 2 GM/50 ML BAG IVPB ONE (04:56)
[2020-09-15] MEDS: Meropenem 1 GM PREMIX(*) 1 GM/50 ML BAG IV SCH ×2 (08:47→20:55)
[2020-09-15] MEDS: Analgesic BALM 114 GM TOPICAL SCH ×2 (08:48→20:54)
[2020-09-15] MEDS: Lidocaine PATCH 5% PATCH TRANSDERM SCH (08:48)
[2020-09-15] MEDS: Saline FLUSH-CENTRAL 10 ML SYRINGE CENT\\PICC SCH ×2 (08:48→20:55)
[2020-09-15] MEDS ORDERED: Patiromer POWDER 8.4 GM PAK PO SCH (09:00)
[2020-09-15 09:17] LABS: ABS Basophils 0.1 10^3/ul (0-0.2); ABS Lymphocytes 1.8 10^3/ul (1.0-4.8); ABS Monocytes 1.6 10^3/ul (0-0.8); ABS Neutrophils 18.8 10^3/ul (1.5-7.7); ABS Nucleated RBC 0.5 10^3/ul; Nucleated Red Blood Cells % 2.4
[2020-09-15 09:18] LABS: Polychromasia 1+
[2020-09-15] MEDS ORDERED: Sodium Chloride FLUSH 10 ml SYRINGE IV FLUSH ONE (10:57)
[2020-09-15] MEDS: Sodium Bicarb 8.4% Vial 50 ML 50 MEQ in D5W 1000 ml BAG 1,000 ML IV SCH ×2 (11:17→20:54)
[2020-09-15] MEDS: Albumin Human 25% 25 GM/100 ML BTL IV SCH ×2 (11:18→17:51)
[2020-09-15] MEDS ORDERED: Octreotide Acetate 50 MCG/ML ML SUBCUT SCH (14:00)
[2020-09-15 14:21] LABS: Hematocrit 20 % (42-52); Hemoglobin 6.4 g/dL (14.0-18.0); Mean Corpuscular HGB Conc 32 g/dL (31-36); Mean Corpuscular Hemoglobin 29 pg (27-31); Mean Corpuscular Volume 89 fL (80-94); Mean Platelet Volume 11.2 fL (7.4-10.4); Platelet Count 60 10^3/uL (150-450); Red Blood Count 2.25 10^6 /uL (4.18-5.48); Red Cell Distribution Width 21 % (10-15); White Blood Count 14.4 10^3/uL (3.5-10.8)
[2020-09-15 14:27] LABS: Albumin 2.3 g/dL (3.2-5.2); BUN/Creatinine Ratio 16.1 (8-20); C Reactive Protein 105.29 mg/L (<8.01); EGFR African American 29.3 (>60); EGFR Non-African American 24.2 (>60); Globulin 2.2 g/dL (2-4); Potassium 4.9 mmol/L (3.5-5.0); Total Protein 4.5 g/dL (6.4-8.9)
[2020-09-15 14:31] LABS: Calcium 5.4 mg/dL (8.6-10.3); Indirect Bilirubin 4.5 mg/dL (0.3-1.0); Total Bilirubin 12.7 mg/dL (0.2-1.0)
[2020-09-15] MEDS ORDERED: CALCIUM GLUCONATE 1GM/50ML NS 1 GM/50 ML BAG IV ONE (14:34)
[2020-09-15 14:42] LABS: INR 1.86 (0.82-1.09)
[2020-09-15 15:02] LABS: LDH 425 U/L (140-271)
[2020-09-15 15:06] LABS: Rheumatoid Factor < 3 IU/mL (<15)
[2020-09-15 15:11] LABS: Activated Partial Thrombo Time 39.5 seconds (26.0-38.0); Fibrinogen 155.5 mg/dL (110.8-404.3); INR 1.81 (0.82-1.09)
[2020-09-15] MEDS: Latanoprost 0.005% 2.5 ml BTL RIGHT EYE SCH (20:54)
[2020-09-15] MEDS: Lidocaine Patch REMOVE PATCH PATCH OFF SCH (20:55)
[2020-09-15 22:23] LABS: Urine Creatinine 52.49 mg/dL; Urine Creatinine Concentration 52.49 mg/dL
[2020-09-15 22:24] LABS: Urine Appearance Turbid; Urine Bacteria 3+ (Absent); Urine Bilirubin Negative (Negative); Urine Blood 3+ (Negative); Urine Glucose Negative (Negative); Urine Ketones Negative (Negative); Urine Nitrite Negative (Negative); Urine Protein 2+(100 mg/dL) (Negative); Urine Red Blood Cell 3+(>10/hpf) (Absent); Urine Specific Gravity 1.014 (1.010-1.030); Urine Squamous Epithelial Cell Present (Absent); Urine Urobilinogen Negative (Negative); Urine White Blood Cell 3+(>20/hpf) (Absent)
[2020-09-15 22:29] LABS: Urine Color Amber
[2020-09-15 23:05] LABS: Urine Microalbumin/Creatinine 2728.1 (<31)
[2020-09-16] MEDS: Albumin Human 25% 25 GM/100 ML BTL IV SCH ×3 (02:04→18:06)
[2020-09-16] MEDS: Hydrocortisone INJ 100 MG/2ML 2 ML VIAL IV SCH ×2 (04:47→13:40)
[2020-09-16] MEDS ORDERED: Vancomycin Random Level NOTE FOLLOW UP ONE (06:00)
[2020-09-16 06:24] LABS: Hematocrit 22 % (42-52); Hemoglobin 7.4 g/dL (14.0-18.0); Mean Corpuscular HGB Conc 33 g/dL (31-36); Mean Corpuscular Hemoglobin 29 pg (27-31); Mean Corpuscular Volume 88 fL (80-94); Red Blood Count 2.51 10^6 /uL (4.18-5.48); Red Cell Distribution Width 18 % (10-15); White Blood Count 7.1 10^3/uL (3.5-10.8)
[2020-09-16 06:25] LABS: INR 1.8 (0.82-1.09)
[2020-09-16] MEDS: Sodium Bicarb 8.4% Vial 50 ML 50 MEQ in D5W 1000 ml BAG 1,000 ML IV SCH ×2 (06:30→23:38)
[2020-09-16 06:34] LABS: Albumin 2.7 g/dL (3.2-5.2); Albumin/Globulin Ratio 1.6 (1-3); BUN/Creatinine Ratio 14.9 (8-20); EGFR African American 27.7 (>60); EGFR Non-African American 22.9 (>60); Globulin 1.7 g/dL (2-4); Potassium 4.8 mmol/L (3.5-5.0); Total Protein 4.4 g/dL (6.4-8.9)
[2020-09-16 06:36] LABS: Calcium 5.4 mg/dL (8.6-10.3); Indirect Bilirubin 4.9 mg/dL (0.3-1.0); Total Bilirubin 13.8 mg/dL (0.2-1.0)
[2020-09-16 06:37] LABS: Vancomycin Random 38.8 mcg/mL
[2020-09-16 06:52] LABS: Platelet Count 28 10^3/uL (150-450)
[2020-09-16] MEDS ORDERED: Heparin 1,000 UNIT/ML 10 ml (10,000 UNITS) CATHLAB/DIALYSIS DIALYSIS ONE (09:00)
[2020-09-16] MEDS: Lidocaine PATCH 5% PATCH TRANSDERM SCH (09:04)
[2020-09-16] MEDS: Saline FLUSH-CENTRAL 10 ML SYRINGE CENT\\PICC SCH ×2 (09:04→20:33)
[2020-09-16] MEDS ORDERED: CALCIUM GLUCONATE 1GM/50ML NS 1 GM/50 ML BAG IV ONE (09:10)
[2020-09-16] MEDS: Norepinephrine 16MCG/ML IVPRE 4,000 MCG/250 ML BAG IV SCH (09:21)
[2020-09-16] MEDS: Albumin Human 25% 25 GM/100 ML IV PRN ×2 (10:40→12:36)
[2020-09-16] MEDS: Meropenem 1 GM PREMIX(*) 1 GM/50 ML BAG IV SCH ×2 (11:07→18:06)
[2020-09-16] MEDS ORDERED: Furosemide 100 mg/10 ml IV VIAL IV ONE (11:57)
[2020-09-16] MEDS ORDERED: HYDROmorphone 0.5 MG/0.5 ML SYRINGE IV ONE (13:27)
[2020-09-16] MEDS: Ondansetron 4 mg VIAL 2 MG/ML 2 ml VIAL IV PRN (13:36)
[2020-09-16 15:32] LABS: BUN/Creatinine Ratio 12.7 (8-20); Calcium 6.8 mg/dL (8.6-10.3); EGFR African American 47.3 (>60); EGFR Non-African American 39.1 (>60); Phosphorus 2.5 mg/dL (2.5-5.0); Potassium 3.7 mmol/L (3.5-5.0)
[2020-09-16] MEDS: Analgesic BALM 114 GM TOPICAL SCH ×2 (20:32→23:37)
[2020-09-16] MEDS: Lidocaine Patch REMOVE PATCH PATCH OFF SCH (20:32)
[2020-09-16] MEDS: Latanoprost 0.005% 2.5 ml BTL RIGHT EYE SCH (20:33)
[2020-09-16] MEDS ORDERED: HYDROmorphone 0.5 MG/0.5 ML SYRINGE IV SLOW PU PRN (23:45)
[2020-09-17] MEDS: Hydrocortisone INJ 100 MG/2ML 2 ML VIAL IV SCH ×3 (00:02→23:12)
[2020-09-17] MEDS: Albumin Human 25% 25 GM/100 ML BTL IV SCH ×3 (02:35→18:14)
[2020-09-17 04:22] LABS: Hematocrit 19 % (42-52); Hemoglobin 6.3 g/dL (14.0-18.0); Mean Corpuscular HGB Conc 34 g/dL (31-36); Mean Corpuscular Hemoglobin 30 pg (27-31); Mean Corpuscular Volume 87 fL (80-94); Mean Platelet Volume 10.6 fL (7.4-10.4); Platelet Count 22 10^3/uL (150-450); Red Blood Count 2.12 10^6 /uL (4.18-5.48); Red Cell Distribution Width 18 % (10-15); White Blood Count 5.8 10^3/uL (3.5-10.8)
[2020-09-17 04:29] LABS: Albumin 3.7 g/dL (3.2-5.2); Albumin/Globulin Ratio 3.1 (1-3); BUN/Creatinine Ratio 12.2 (8-20); EGFR African American 37.4 (>60); EGFR Non-African American 30.9 (>60); Globulin 1.2 g/dL (2-4); Phosphorus 3.1 mg/dL (2.5-5.0); Potassium 4.2 mmol/L (3.5-5.0); Total Protein 4.9 g/dL (6.4-8.9)
[2020-09-17 04:33] LABS: Calcium 6.1 mg/dL (8.6-10.3); Indirect Bilirubin 4.7 mg/dL (0.3-1.0); Magnesium 1.9 mg/dL (1.9-2.7); Total Bilirubin 13.5 mg/dL (0.2-1.0)
[2020-09-17 04:38] LABS: Fibrinogen 120.2 mg/dL (110.8-404.3); INR 1.84 (0.82-1.09)
[2020-09-17] MEDS ORDERED: Vancomycin Random Level NOTE FOLLOW UP ONE (06:00)
[2020-09-17] MEDS ORDERED: Heparin *DIALYSIS* ONLY 1,000 UNITS/ML VIAL DIALYSIS ONE (07:30)
[2020-09-17] MEDS: Norepinephrine 16MCG/ML IVPRE 4,000 MCG/250 ML BAG IV SCH (07:37)
[2020-09-17] MEDS: Saline FLUSH-CENTRAL 10 ML SYRINGE CENT\\PICC SCH ×2 (07:43→20:33)
[2020-09-17] MEDS: Lidocaine PATCH 5% PATCH TRANSDERM SCH (07:43)
[2020-09-17] MEDS ORDERED: CALCIUM GLUCONATE 1GM/50ML NS 1 GM/50 ML BAG IV ONE ×2 (07:43→12:00)
[2020-09-17] MEDS: Ondansetron 4 mg VIAL 2 MG/ML 2 ml VIAL IV PRN (08:06)
[2020-09-17] MEDS: Albumin Human 25% 25 GM/100 ML IV PRN (08:54)
[2020-09-17 16:56] LABS: BUN/Creatinine Ratio 8.8 (8-20); EGFR African American 59.7 (>60); EGFR Non-African American 49.3 (>60); Hematocrit 24 % (42-52); Mean Corpuscular HGB Conc 34 g/dL (31-36); Mean Corpuscular Hemoglobin 30 pg (27-31); Mean Corpuscular Volume 88 fL (80-94); Mean Platelet Volume 11.5 fL (7.4-10.4); Phosphorus 1.9 mg/dL (2.5-5.0); Platelet Count 25 10^3/uL (150-450); Potassium 3.2 mmol/L (3.5-5.0); Red Cell Distribution Width 17 % (10-15); White Blood Count 5.8 10^3/uL (3.5-10.8)
[2020-09-17] MEDS: Meropenem 1 GM PREMIX(*) 1 GM/50 ML BAG IV SCH (18:13)
[2020-09-17 19:59] LABS: ABS Lymphocytes 0.5 10^3/ul (1.0-4.8); ABS Monocytes 0.1 10^3/ul (0-0.8); ABS Neutrophils 5.3 10^3/ul (1.5-7.7); ABS Nucleated RBC 0.1 10^3/ul; Eosinophil % 0.1 %; Lymphocyte % 7.9 %; Nucleated Red Blood Cells % 1.3
[2020-09-17 20:29] LABS: Microcytosis 1+; Polychromasia 1+
[2020-09-17] MEDS: HYDROmorphone 0.5 MG/0.5 ML SYRINGE IV SLOW PU PRN (20:32)
[2020-09-17] MEDS: Latanoprost 0.005% 2.5 ml BTL RIGHT EYE SCH (20:33)
[2020-09-17] MEDS: Analgesic BALM 114 GM TOPICAL SCH ×2 (20:33→20:44)
[2020-09-17] MEDS: Lidocaine Patch REMOVE PATCH PATCH OFF SCH (20:34)
[2020-09-17] MEDS ORDERED: Pantoprazole VIAL 40 MG VIAL IV SCH ×2 (22:00)
[2020-09-18] MEDS: Albumin Human 25% 25 GM/100 ML BTL IV SCH ×3 (01:01→17:49)
[2020-09-18 04:50] LABS: Hematocrit 22 % (42-52); Hemoglobin 7.3 g/dL (14.0-18.0); Mean Corpuscular HGB Conc 34 g/dL (31-36); Mean Corpuscular Hemoglobin 29 pg (27-31); Mean Corpuscular Volume 87 fL (80-94); Platelet Count 21 10^3/uL (150-450); Red Blood Count 2.48 10^6 /uL (4.18-5.48); Red Cell Distribution Width 17 % (10-15); White Blood Count 5.1 10^3/uL (3.5-10.8)
[2020-09-18 05:05] LABS: Albumin 3.9 g/dL (3.2-5.2); Albumin/Globulin Ratio 3.9 (1-3); BUN/Creatinine Ratio 8.6 (8-20); Calcium 6.6 mg/dL (8.6-10.3); EGFR African American 49.5 (>60); EGFR Non-African American 40.9 (>60); Potassium 3.1 mmol/L (3.5-5.0); Total Protein 4.9 g/dL (6.4-8.9)
[2020-09-18 05:30] LABS: Indirect Bilirubin 4.8 mg/dL (0.3-1.0); Total Bilirubin 14.1 mg/dL (0.2-1.0)
[2020-09-18 06:49] LABS: Magnesium 1.9 mg/dL (1.9-2.7)
[2020-09-18] MEDS ORDERED: Potassium Chloride LIQUID 20 MEQ/15 ML LIQUID PO ONE (07:25)
[2020-09-18] MEDS ORDERED: CALCIUM GLUCONATE 1GM/50ML NS 1 GM/50 ML BAG IV ONE (07:26)
[2020-09-18] MEDS: Lidocaine PATCH 5% PATCH TRANSDERM SCH (09:13)
[2020-09-18] MEDS ORDERED: KCL 10 MEQ/50 ML IVPREMIX 10 MEQ/50 ML BAG IV ONE (09:29)
[2020-09-18] MEDS: Saline FLUSH-CENTRAL 10 ML SYRINGE CENT\\PICC SCH ×2 (09:40→21:10)
[2020-09-18] MEDS: HYDROmorphone 0.5 MG/0.5 ML SYRINGE IV SLOW PU PRN (10:00)
[2020-09-18] MEDS: Ondansetron 4 mg VIAL 2 MG/ML 2 ml VIAL IV PRN (10:47)
[2020-09-18] MEDS: Hydrocortisone INJ 100 MG/2ML 2 ML VIAL IV SCH ×2 (13:59→23:34)
[2020-09-18 16:31] LABS: Hepatitis B Surface Antigen Nonreactive (Nonreactive)
[2020-09-18 16:39] LABS: HIV 4th Generation Nonreactive (Nonreactive)
[2020-09-18 16:48] LABS: Hepatitis B Surface Ab Not Immune (Immune); Hepatitis C Antibody Negative (Negative)
[2020-09-18] MEDS: Meropenem 1 GM PREMIX(*) 1 GM/50 ML BAG IV SCH (17:40)
[2020-09-18] MEDS: Famotidine IV 10 MG/ML 2 ml VIAL (20 mg) IV SCH (21:10)
[2020-09-18] MEDS: Analgesic BALM 114 GM TOPICAL SCH (21:10)
[2020-09-18] MEDS: Lidocaine Patch REMOVE PATCH PATCH OFF SCH (21:11)
[2020-09-18] MEDS: Latanoprost 0.005% 2.5 ml BTL RIGHT EYE SCH (21:11)
[2020-09-19] MEDS: Albumin Human 25% 25 GM/100 ML BTL IV SCH ×3 (01:19→17:42)
[2020-09-19] MEDS: Ondansetron 4 mg VIAL 2 MG/ML 2 ml VIAL IV PRN (05:23)
[2020-09-19 05:48] LABS: Vancomycin Random 25.5 mcg/mL
[2020-09-19 05:49] LABS: Fibrinogen 133.1 mg/dL (110.8-404.3); INR 1.98 (0.82-1.09)
[2020-09-19 05:50] LABS: BUN/Creatinine Ratio 9.7 (8-20); Calcium 6.6 mg/dL (8.6-10.3); EGFR African American 38.4 (>60); EGFR Non-African American 31.7 (>60); Globulin 0.8 g/dL (2-4); Potassium 3.3 mmol/L (3.5-5.0); Total Protein 4.8 g/dL (6.4-8.9)
[2020-09-19 05:51] LABS: Magnesium 1.9 mg/dL (1.9-2.7)
[2020-09-19] MEDS ORDERED: Vancomycin Random Level NOTE FOLLOW UP ONE (06:00)
[2020-09-19 06:10] LABS: Indirect Bilirubin 2.8 mg/dL (0.3-1.0)
[2020-09-19 06:34] LABS: Hematocrit 23 % (42-52); Hemoglobin 7.7 g/dL (14.0-18.0); Mean Corpuscular HGB Conc 34 g/dL (31-36); Mean Corpuscular Hemoglobin 30 pg (27-31); Mean Corpuscular Volume 88 fL (80-94); Mean Platelet Volume 9.7 fL (7.4-10.4); Platelet Count 17 10^3/uL (150-450); Red Blood Count 2.56 10^6 /uL (4.18-5.48); Red Cell Distribution Width 17 % (10-15); White Blood Count 6.2 10^3/uL (3.5-10.8)
[2020-09-19] MEDS: Saline FLUSH-CENTRAL 10 ML SYRINGE CENT\\PICC SCH ×2 (09:16→20:51)
[2020-09-19] MEDS: Famotidine IV 10 MG/ML 2 ml VIAL (20 mg) IV SCH (09:16)
[2020-09-19] MEDS: Lidocaine PATCH 5% PATCH TRANSDERM SCH (09:29)
[2020-09-19] MEDS: Hydrocortisone INJ 100 MG/2ML 2 ML VIAL IV SCH ×2 (12:41→23:29)
[2020-09-19] MEDS: Meropenem 1 GM PREMIX(*) 1 GM/50 ML BAG IV SCH (17:38)
[2020-09-19] MEDS: Latanoprost 0.005% 2.5 ml BTL RIGHT EYE SCH (20:52)
[2020-09-19] MEDS: Analgesic BALM 114 GM TOPICAL SCH (20:52)
[2020-09-19] MEDS: Lidocaine Patch REMOVE PATCH PATCH OFF SCH (20:52)
[2020-09-19] MEDS: HYDROmorphone 0.5 MG/0.5 ML SYRINGE IV SLOW PU PRN (23:23)
[2020-09-20] MEDS: Albumin Human 25% 25 GM/100 ML BTL IV SCH ×3 (01:48→18:16)
[2020-09-20 05:24] LABS: Hematocrit 23 % (42-52); Hemoglobin 7.7 g/dL (14.0-18.0); Mean Corpuscular HGB Conc 34 g/dL (31-36); Mean Corpuscular Hemoglobin 30 pg (27-31); Mean Corpuscular Volume 88 fL (80-94); Mean Platelet Volume 10.2 fL (7.4-10.4); Platelet Count 30 10^3/uL (150-450); Red Blood Count 2.57 10^6 /uL (4.18-5.48); Red Cell Distribution Width 18 % (10-15); White Blood Count 8.8 10^3/uL (3.5-10.8)
[2020-09-20 05:40] LABS: ABS Lymphocytes 0.4 10^3/ul (1.0-4.8); ABS Neutrophils 8.4 10^3/ul (1.5-7.7); Eosinophil % 0.1 %; Lymphocyte % 4.9 %; Nucleated Red Blood Cells % 0.5
[2020-09-20 05:41] LABS: Albumin 4.1 g/dL (3.2-5.2); Albumin/Globulin Ratio 3.7 (1-3); BUN/Creatinine Ratio 11.9 (8-20); Calcium 6.8 mg/dL (8.6-10.3); EGFR African American 32.3 (>60); EGFR Non-African American 26.7 (>60); Globulin 1.1 g/dL (2-4); Phosphorus 2.8 mg/dL (2.5-5.0); Potassium 3.1 mmol/L (3.5-5.0); Total Protein 5.2 g/dL (6.4-8.9)
[2020-09-20 05:47] LABS: Total Bilirubin 18.3 mg/dL (0.2-1.0)
[2020-09-20] MEDS: Lidocaine PATCH 5% PATCH TRANSDERM SCH (07:54)
[2020-09-20] MEDS: Albumin Human 25% 25 GM/100 ML IV PRN (08:33)
[2020-09-20] MEDS: Norepinephrine 16MCG/ML IVPRE 4,000 MCG/250 ML BAG IV SCH (08:43)
[2020-09-20] MEDS: Ondansetron 4 mg VIAL 2 MG/ML 2 ml VIAL IV PRN (08:44)
[2020-09-20] MEDS ORDERED: Heparin 1,000 UNIT/ML 10 ml (10,000 UNITS) CATHLAB/DIALYSIS DIALYSIS ONE (09:00)
[2020-09-20] MEDS ORDERED: Norepinephrine 16MCG/ML IVPRE 4,000 MCG/250 ML BAG IV SCH (09:12)
[2020-09-20] MEDS ORDERED: Acetylcysteine IV 15,000 MG in D5W 250 ml BAG 200 ML IV ONE (10:00)
[2020-09-20] MEDS: Saline FLUSH-CENTRAL 10 ML SYRINGE CENT\\PICC SCH ×2 (10:37→21:37)
[2020-09-20] MEDS ORDERED: Acetylcysteine IV 5,000 MG in D5W 500 ml BAG 500 ML IV ONE (11:00)
[2020-09-20 13:31] LABS: Hematocrit for Retic CNT 23 % (42-52); RBC Retic Count 2.59 10^6/uL (4.18-5.48)
[2020-09-20] MEDS: Hydrocortisone INJ 100 MG/2ML 2 ML VIAL IV SCH (13:46)
[2020-09-20] MEDS: Famotidine IV 10 MG/ML 2 ml VIAL (20 mg) IV SCH (13:46)
[2020-09-20 14:32] LABS: Corrected Retic Count 2.5 % (0.5-1.5); Immature Retic Fraction 0.38
[2020-09-20] MEDS ORDERED: Acetylcysteine IV 10,000 MG in D5W 1000 ml BAG 1,000 ML IV ONE (15:00)
[2020-09-20] MEDS: Meropenem 1 GM PREMIX(*) 1 GM/50 ML BAG IV SCH (17:40)
[2020-09-20] MEDS ORDERED: Potassium Chloride LIQUID 20 MEQ/15 ML LIQUID PO ONE (17:50)
[2020-09-20] MEDS: HYDROmorphone 0.5 MG/0.5 ML SYRINGE IV SLOW PU PRN (19:30)
[2020-09-20] MEDS: Lidocaine Patch REMOVE PATCH PATCH OFF SCH (21:38)
[2020-09-20] MEDS: Latanoprost 0.005% 2.5 ml BTL RIGHT EYE SCH (21:57)
[2020-09-20] MEDS: Analgesic BALM 114 GM TOPICAL SCH (22:01)
[2020-09-21] MEDS: Hydrocortisone INJ 100 MG/2ML 2 ML VIAL IV SCH (00:09)
[2020-09-21] MEDS: Albumin Human 25% 25 GM/100 ML BTL IV SCH ×2 (01:57→09:50)
[2020-09-21 05:25] LABS: Hematocrit 22 % (42-52); Hemoglobin 7.5 g/dL (14.0-18.0); Mean Corpuscular HGB Conc 34 g/dL (31-36); Mean Corpuscular Hemoglobin 30 pg (27-31); Mean Corpuscular Volume 88 fL (80-94); Mean Platelet Volume 9.9 fL (7.4-10.4); Red Blood Count 2.51 10^6 /uL (4.18-5.48); Red Cell Distribution Width 17 % (10-15); White Blood Count 8.6 10^3/uL (3.5-10.8)
[2020-09-21 05:26] LABS: Platelet Count 19 10^3/uL (150-450)
[2020-09-21 05:42] LABS: Albumin 3.8 g/dL (3.2-5.2); Calcium 7.2 mg/dL (8.6-10.3); Potassium 2.9 mmol/L (3.5-5.0)
[2020-09-21 05:47] LABS: Total Bilirubin 17.8 mg/dL (0.2-1.0)
[2020-09-21 05:48] LABS: Albumin/Globulin Ratio 4.2 (1-3); BUN/Creatinine Ratio 12.4 (8-20); EGFR Non-African American 36.3 (>60); Globulin 0.9 g/dL (2-4); Total Protein 4.7 g/dL (6.4-8.9)
[2020-09-21 05:59] LABS: Indirect Bilirubin 3.8 mg/dL (0.3-1.0)
[2020-09-21] MEDS ORDERED: Vancomycin Random Level NOTE FOLLOW UP ONE (06:00)
[2020-09-21] MEDS: Albumin Human 25% 25 GM/100 ML IV PRN (07:41)
[2020-09-21] MEDS ORDERED: Albumin Human 25% 25 GM/100 ML IV PRN (07:48)
[2020-09-21] MEDS: Ondansetron 4 mg VIAL 2 MG/ML 2 ml VIAL IV PRN (07:56)
[2020-09-21 07:57] LABS: Phosphorus 1.8 mg/dL (2.5-5.0)
[2020-09-21 07:59] LABS: Magnesium 1.8 mg/dL (1.9-2.7)
[2020-09-21 08:25] LABS: Vancomycin Random 17.1 mcg/mL
[2020-09-21] MEDS ORDERED: KCL 20 MEQ/100 ML IVPREMIX 20 MEQ/100 ML BAG IV ONE ×2 (08:42→13:00)
[2020-09-21] MEDS ORDERED: Heparin 1,000 UNIT/ML 10 ml (10,000 UNITS) CATHLAB/DIALYSIS DIALYSIS ONE (09:00)
[2020-09-21] MEDS ORDERED: Magnesium Sulfate 2 gm BAG 2 GM/50 ML BAG IVPB ONE (09:11)
[2020-09-21] MEDS ORDERED: Dextrose 50% Syringe 50 ml 25 GM/50 ML SYRINGE IV PUSH PRN (10:24)
[2020-09-21 10:51] LABS: C-ANCA Negative (Negative); P-ANCA Negative (Negative)
[2020-09-21] MEDS: Famotidine IV 10 MG/ML 2 ml VIAL (20 mg) IV SCH (11:47)
[2020-09-21] MEDS: Lidocaine PATCH 5% PATCH TRANSDERM SCH (11:50)
[2020-09-21] MEDS: Saline FLUSH-CENTRAL 10 ML SYRINGE CENT\\PICC SCH ×2 (11:50→19:16)
[2020-09-21] MEDS: Potassium Chloride LIQUID 20 MEQ/15 ML LIQUID PO SCH ×2 (14:15→19:16)
[2020-09-21] MEDS: Meropenem 1 GM PREMIX(*) 1 GM/50 ML BAG IV SCH (17:26)
[2020-09-21 17:55] LABS: Anion Gap 17 mmol/L (2-11); BUN/Creatinine Ratio 10.5 (8-20); Blood Urea Nitrogen 14 mg/dL (6-24); CO2 Carbon Dioxide 20 mmol/L (22-32); Calcium 8.2 mg/dL (8.6-10.3); Chloride 99 mmol/L (101-111); EGFR African American 67.5 (>60); EGFR Non-African American 55.8 (>60); Glucose 167 mg/dL (70-100); INR 2.51 (0.82-1.09); Potassium 4.3 mmol/L (3.5-5.0); Sodium 136 mmol/L (135-145)
[2020-09-21 17:58] LABS: Magnesium 2.2 mg/dL (1.9-2.7)
[2020-09-21 17:59] LABS: Phosphorus < 1.0 mg/dL (2.5-5.0)
[2020-09-21] MEDS ORDERED: Potassium Phosphate IV 15 MMOLE in NS 0.9% 250 ml 250 ML IVPB ONE (18:00)
[2020-09-21 18:38] LABS: Albumin 2.2 g/dL (3.4-4.7); Albumin/Globulin Ratio 0.96; Total Protein(PEP) 4.4 g/dL (6.3 - 7.9)
[2020-09-21 19:05] LABS: Complement C3 94 mg/dL (75 - 175)
[2020-09-21] MEDS: Lidocaine Patch REMOVE PATCH PATCH OFF SCH (19:15)
[2020-09-21] MEDS: Analgesic BALM 114 GM TOPICAL SCH (19:15)
[2020-09-21] MEDS: Latanoprost 0.005% 2.5 ml BTL RIGHT EYE SCH (19:29)
[2020-09-22 03:55] LABS: Hematocrit 21 % (42-52); Hemoglobin 7.4 g/dL (14.0-18.0); Mean Corpuscular HGB Conc 35 g/dL (31-36); Mean Corpuscular Hemoglobin 30 pg (27-31); Mean Corpuscular Volume 87 fL (80-94); Mean Platelet Volume 10.2 fL (7.4-10.4); Platelet Count 16 10^3/uL (150-450); Red Blood Count 2.45 10^6 /uL (4.18-5.48); Red Cell Distribution Width 18 % (10-15); White Blood Count 10.9 10^3/uL (3.5-10.8)
[2020-09-22 04:03] LABS: Albumin 3.8 g/dL (3.2-5.2); Albumin/Globulin Ratio 3.8 (1-3); BUN/Creatinine Ratio 12.4 (8-20); Calcium 8.1 mg/dL (8.6-10.3); EGFR African American 54.2 (>60); EGFR Non-African American 44.8 (>60); Phosphorus 1.5 mg/dL (2.5-5.0); Potassium 4.6 mmol/L (3.5-5.0); Total Protein 4.8 g/dL (6.4-8.9)
[2020-09-22 04:24] LABS: Total Bilirubin 19.9 mg/dL (0.2-1.0)
[2020-09-22 04:41] LABS: Magnesium 2.1 mg/dL (1.9-2.7)
[2020-09-22] MEDS ORDERED: Vancomycin Random Level NOTE FOLLOW UP ONE (06:00)
[2020-09-22] MEDS: Potassium Chloride LIQUID 20 MEQ/15 ML LIQUID PO SCH (08:08)
[2020-09-22] MEDS: Famotidine IV 10 MG/ML 2 ml VIAL (20 mg) IV SCH (08:08)
[2020-09-22] MEDS: Saline FLUSH-CENTRAL 10 ML SYRINGE CENT\\PICC SCH ×2 (08:14→20:38)
[2020-09-22] MEDS: Lidocaine PATCH 5% PATCH TRANSDERM SCH (08:14)
[2020-09-22] MEDS: D5W 1000 ml BAG 1,000 ML IVPB SCH ×2 (10:41→23:52)
[2020-09-22] MEDS ORDERED: Sodium Phosphate IV 15 MMOLE in NS 0.9% 250 ml 250 ML IVPB ONE (11:00)
[2020-09-22 15:28] LABS: Phospholipase A2 Receptor IFA Negative (Negative); Phospholipase A2 ReceptorELISA <2 RU/mL
[2020-09-22] MEDS: Meropenem 1 GM PREMIX(*) 1 GM/50 ML BAG IV SCH (18:09)
[2020-09-22] MEDS: Lidocaine Patch REMOVE PATCH PATCH OFF SCH (20:38)
[2020-09-22] MEDS: Analgesic BALM 114 GM TOPICAL SCH (20:39)
[2020-09-22] MEDS: Latanoprost 0.005% 2.5 ml BTL RIGHT EYE SCH (20:46)
[2020-09-23 05:38] LABS: Hematocrit 22 % (42-52); Hemoglobin 7.5 g/dL (14.0-18.0); Mean Corpuscular HGB Conc 33 g/dL (31-36); Mean Corpuscular Hemoglobin 29 pg (27-31); Mean Corpuscular Volume 88 fL (80-94); Platelet Count 16 10^3/uL (150-450); Red Blood Count 2.54 10^6 /uL (4.18-5.48); Red Cell Distribution Width 19 % (10-15); White Blood Count 11.7 10^3/uL (3.5-10.8)
[2020-09-23 05:41] LABS: INR 2.45 (0.82-1.09)
[2020-09-23 05:51] LABS: Albumin 3.4 g/dL (3.2-5.2); Albumin/Globulin Ratio 2.8 (1-3); BUN/Creatinine Ratio 16.4 (8-20); Calcium 8.2 mg/dL (8.6-10.3); EGFR African American 43.4 (>60); EGFR Non-African American 35.9 (>60); Globulin 1.2 g/dL (2-4); Phosphorus 2.4 mg/dL (2.5-5.0); Potassium 4.6 mmol/L (3.5-5.0); Total Protein 4.6 g/dL (6.4-8.9)
[2020-09-23 05:52] LABS: Vancomycin Random 13.8 mcg/mL
[2020-09-23 05:55] LABS: Total Bilirubin 20.3 mg/dL (0.2-1.0)
[2020-09-23] MEDS ORDERED: Norepinephrine 16MCG/ML IVPRE 4,000 MCG/250 ML BAG IV SCH (08:00)
[2020-09-23] MEDS: Albumin Human 25% 25 GM/100 ML IV PRN ×3 (08:47→12:49)
[2020-09-23] MEDS ORDERED: Heparin 1,000 UNIT/ML 10 ml (10,000 UNITS) CATHLAB/DIALYSIS DIALYSIS ONE (09:00)
[2020-09-23] MEDS: Saline FLUSH-CENTRAL 10 ML SYRINGE CENT\\PICC SCH ×2 (10:44→21:07)
[2020-09-23] MEDS: Famotidine IV 10 MG/ML 2 ml VIAL (20 mg) IV SCH (14:25)
[2020-09-23] MEDS: Lidocaine PATCH 5% PATCH TRANSDERM SCH ×2 (14:26→15:04)
[2020-09-23] MEDS ORDERED: Furosemide 100 mg/10 ml IV VIAL IV ONE (15:43)
[2020-09-23] MEDS: Meropenem 1 GM PREMIX(*) 1 GM/50 ML BAG IV SCH (18:57)
[2020-09-23 20:08] LABS: HIT ELISA < 0.075 OD (<0.400)
[2020-09-23] MEDS: Analgesic BALM 114 GM TOPICAL SCH (21:04)
[2020-09-23] MEDS: Latanoprost 0.005% 2.5 ml BTL RIGHT EYE SCH (21:04)
[2020-09-23] MEDS: Lidocaine Patch REMOVE PATCH PATCH OFF SCH (21:05)
[2020-09-23 23:55] LABS: ADAMTS13 Activity Assay 18 % (>/=70)
[2020-09-24 05:49] LABS: Hematocrit 20 % (42-52); Hemoglobin 6.9 g/dL (14.0-18.0); Mean Corpuscular HGB Conc 35 g/dL (31-36); Mean Corpuscular Hemoglobin 30 pg (27-31); Mean Corpuscular Volume 87 fL (80-94); Mean Platelet Volume 10.4 fL (7.4-10.4); Platelet Count 11 10^3/uL (150-450); Red Blood Count 2.29 10^6 /uL (4.18-5.48); Red Cell Distribution Width 18 % (10-15); White Blood Count 9.9 10^3/uL (3.5-10.8)
[2020-09-24 05:51] LABS: INR 2.49 (0.82-1.09)
[2020-09-24] MEDS ORDERED: Vancomycin Random Level NOTE FOLLOW UP ONE (06:00)
[2020-09-24 06:04] LABS: Albumin 3.7 g/dL (3.2-5.2); Albumin/Globulin Ratio 3.4 (1-3); BUN/Creatinine Ratio 16.6 (8-20); Calcium 8.5 mg/dL (8.6-10.3); EGFR African American 61.1 (>60); EGFR Non-African American 50.5 (>60); Globulin 1.1 g/dL (2-4); Phosphorus 1.3 mg/dL (2.5-5.0); Potassium 3.8 mmol/L (3.5-5.0); Total Protein 4.8 g/dL (6.4-8.9)
[2020-09-24 06:20] LABS: Vancomycin Random 10.4 mcg/mL
[2020-09-24 06:31] LABS: Total Bilirubin 20.3 mg/dL (0.2-1.0)
[2020-09-24] MEDS ORDERED: SODIUM PHOSPHATE IVPB ONE (07:34)
[2020-09-24] MEDS ORDERED: NS IVPB ONE (07:34)
[2020-09-24] MEDS ORDERED: Albumin Human 25% 25 GM/100 ML IV ONE ×2 (08:00)
[2020-09-24] MEDS ORDERED: Heparin 1,000 UNIT/ML 10 ml (10,000 UNITS) CATHLAB/DIALYSIS DIALYSIS ONE (08:00)
[2020-09-24] MEDS ORDERED: Albumin Human 25% 25 GM/100 ML BTL IV SCH (08:00)
[2020-09-24] MEDS ORDERED: Sodium Phosphate IV 15 MMOLE in NS 0.9% 250 ml 250 ML IVPB ONE (08:17)
[2020-09-24 10:02] LABS: Magnesium 1.9 mg/dL (1.9-2.7)
[2020-09-24] MEDS: Saline FLUSH-CENTRAL 10 ML SYRINGE CENT\\PICC SCH (12:34)
[2020-09-24] MEDS: Famotidine IV 10 MG/ML 2 ml VIAL (20 mg) IV SCH (12:34)
[2020-09-24] MEDS: Lidocaine PATCH 5% PATCH TRANSDERM SCH (12:43)
[2020-09-24] MEDS ORDERED: Lorazepam PYXIS KEY PRN (18:03)
[2020-09-24] MEDS ORDERED: LORazepam 2 mg VIAL 1 ml IV PUSH PRN (18:03)
[2020-09-24] MEDS ORDERED: Atropine 1% (ORAL/SL) 15 ML BTL SL PRN (18:03)
[2020-09-24] MEDS: HYDROmorphone 0.5 MG/0.5 ML SYRINGE IV SLOW PU PRN (19:40)
[2020-09-24] MEDS: Lidocaine Patch REMOVE PATCH PATCH OFF SCH (20:08)
[2020-09-24] MEDS: Analgesic BALM 114 GM TOPICAL SCH (20:08)
[2020-09-25 04:10] VITALS: BP 112/66
[2020-09-25] MEDS: Lidocaine PATCH 5% PATCH TRANSDERM SCH (10:11)
[2020-09-25] MEDS: HYDROmorphone 0.5 MG/0.5 ML SYRINGE IV SLOW PU PRN (10:16)
== END 2020-09-25 11:45 | disposition expired | DRG 441 ==
LOC: MEDTELE 18:36 → ED 18:36 → MEDTELE 09-04 03:30 → MED 09-13 05:30 → ICU 09-13 16:20
PROVIDERS: ADMIT Internal Medicine; ATTEND Internal Medicine